=== PATIENT | female | born 1940 | race Caucasian/White ===

== ENCOUNTER → 2016-12-28 | Outpatient (CLI) | payer MEDICARE ==
--- NOTE | 2016-12-29 12:43 | MM ---
Reason for exam: screening (asymptomatic). Last mammogram was performed 1 year and 7 months ago. History: Patient is postmenopausal. Family history of premenopausal breast cancer in sister at age 45 and breast cancer in paternal aunt at age 70. Benign excisional biopsy of the right breast, 1989. Physical Findings: A clinical breast exam by your physician is recommended on an annual basis and results should be correlated with mammographic findings. MG 3D Screening Mammo W/Cad Bilateral CC and MLO view(s) were taken. Prior study comparison: May 22, 2015, bilateral MG 3d screening mammo w/cad. May 07, 2014, bilateral MG diagnostic mammo w CAD [facility]. May 04, 2013, [facility] DIGITAL RIGHT MAMMOGRAM w/CAD. There are scattered fibroglandular densities. No significant changes when compared with prior studies. ASSESSMENT: Negative, BI-RAD 1 RECOMMENDATION: Routine screening mammogram of both breasts in 1 year.
== END | disposition home or self-care (01) ==
LOC: RADMAMWWP 09:02
PROVIDERS: ATTEND Internal Medicine Geriatric Medicine
DX: Z12.31 Encounter for screening mammogram for malignant neoplasm of breast (principal)
CPT/HCPCS: 77063; G0202

== ENCOUNTER → 2017-06-07 | Outpatient (CLI) | payer MEDICARE ==
[2017-06-07 16:54] LABS: HCT 46.9 % (34.0-46.0); HGB 14.8 gm/dL (11.4-16.0); MCH 29.7 pg (25.0-35.0); MCHC 31.6 g/dL (31.0-37.0); MCV 93.8 fL (80.0-100.0); Mean Platelet Volume 8.1; Platelet Count 192 k/uL (150-450); WBC 5.7 k/uL (3.8-10.6)
[2017-06-07 17:01] LABS: Partial Thromboplastin Time 22.8 sec (22.0-30.0); Prothrombin Time 9.8 sec (9.0-12.0)
[2017-06-07 17:03] LABS: ALT 52 U/L (9-52); AST 29 U/L (14-36); Albumin 4.2 g/dL (3.5-5.0); Alkaline Phosphatase 90 U/L (38-126); Anion Gap 9 mmol/L; Blood Urea Nitrogen 17 mg/dL (7-17); Calcium 9.5 mg/dL (8.4-10.2); Carbon Dioxide 30 mmol/L (22-30); Chloride 104 mmol/L (98-107); Glucose 92 mg/dL (74-99); Potassium 4.1 mmol/L (3.5-5.1); Sodium 143 mmol/L (137-145); Total Bilirubin 0.7 mg/dL (0.2-1.3); Total Protein 6.7 g/dL (6.3-8.2)
[2017-06-07 17:05] LABS: Amorphous Sediment,Urine Rare /hpf; Appearance,Urine Cloudy (Clear); Bilirubin,Urine Negative (Negative); Blood,Urine Negative (Negative); Color,Urine Light Yellow; Glucose,Urine (UA) Negative (Negative); Ketones,Urine Negative (Negative); Leukocyte Esterase,Urine Trace (Negative); Mucus,Urine Rare /hpf; Nitrite,Urine Negative (Negative); PH, Urine 6.5 (5.0-8.0); Protein,Urine Negative (Negative); Specific Gravity,Urine 1.014 (1.001-1.035); Squamous Epithelial Cell,Urine <1 /hpf (0-4); Urobilinogen,Urine <2.0 mg/dL (<2.0); WBC,Urine 1 /hpf (0-5)
== END | disposition home or self-care (01) ==
LOC: LABWHC1 16:02
PROVIDERS: ATTEND Orthopaedic Surgery Adult Reconstructive Orthopaedic Surgery
DX: R79.1 Abnormal coagulation profile (principal); Z51.81 Encounter for therapeutic drug level monitoring
CPT/HCPCS: 36415; 80053; 81001; 85027; 85610; 85730

== ENCOUNTER → 2017-11-17 | Outpatient (CLI) | payer MEDICARE ==
--- NOTE | 2017-11-17 11:42 | US ---
EXAMINATION TYPE: US pelvic complete DATE OF EXAM: 11/17/2017 COMPARISON: NONE CLINICAL HISTORY: HEMATURIA R31.9. 1 episode of noticing blood on toilet paper a few days ago, no ble eding now, no microscopic hematuria today at office, no pain TECHNIQUE: TA. Transabdominal sonographic images of the pelvis were acquired. Date of LMP: 25+ years ago EXAM MEASUREMENTS: Uterus: 6.1 x 3.3 x 1.6 cm Endometrial Stripe: 0.2 cm Right Ovary: not seen Left Ovary: not seen 1. Uterus: Anteverted wnl 2. Endometrium: wnl 3. Right Ovary: not seen due to bowel gas and atrophy 4. Left Ovary: not seen due to bowel gas and atrophy 5. Bilateral Adnexa: peristalsing bowel, wnl 6. Posterior cul-de-sac: wnl IMPRESSION: 1. Unremarkable study.
== END | disposition home or self-care (01) ==
LOC: RADUSWWP 10:38
PROVIDERS: ATTEND Internal Medicine
DX: R31.9 Hematuria, unspecified (principal)
CPT/HCPCS: 76856

== ENCOUNTER → 2017-11-25 | Outpatient (CLI) | payer MEDICARE ==
--- NOTE | 2017-11-25 15:37 | US ---
EXAMINATION TYPE: US carotid duplex BILAT DATE OF EXAM: 11/25/2017 COMPARISON: US dated 03/10/2016 CLINICAL HISTORY: OCCLUSION STENOSIS I65.23. EXAM MEASUREMENTS: RIGHT: Peak Systolic Velocity (PSV) cm/sec ----- Right CCA: 95.6 ----- Right ICA: 89.2 ----- Right ECA: 64.7 ICA/CCA ratio: 0.9 RIGHT: End Diastole cm/sec ----- Right CCA: 19.3 ----- Right ICA: 27.0 ----- Right ECA: 0.0 LEFT: Peak Systolic Velocity (PSV) cm/sec ----- Left CCA: 73.5 ----- Left ICA: 86.7 ----- Left ECA: 75.7 ICA/CCA ratio: 1.2 LEFT: End Diastole cm/sec ----- Left CCA: 19.7 ----- Left ICA: 25.2 ----- Left ECA: 0.0 VERTEBRALS (direction of flow): Right Vertebral: Antegrade Left Vertebral: Antegrade Rhythm: Normal No significant stenosis seen, no elevated velocities, mild bilateral plaque noted. Grayscale, color Doppler, spectral Doppler the carotid arteries, waveform analysis shows no significa nt stenosis. IMPRESSION: No hemodynamic significant stenosis of the proximal internal carotid arteries bilaterall y by Doppler criteria, an indirect measurement of carotid stenosis
--- NOTE | 2017-11-26 15:05 | ECHOF ---
Referral Reason:OCCLUSION STENOSIS I65.23 MEASUREMENTS -------- HEIGHT: 160.0 cm WEIGHT: 70.3 kg BP: RVIDd: 3.0 cm (< 3.3) IVSd: 1.1 cm (0.6 - 1.1) LVIDd: 4.8 cm (3.9 - 5.3) LVPWd: 1.3 cm (0.6 - 1.1) IVSs: 1.5 cm LVIDs: 2.7 cm LVPWs: 1.7 cm LAESV Index (A-L): 78.24 ml/m Ao Diam: 3.1 cm (2.0 - 3.7) AV Cusp: 1.4 cm (1.5 - 2.6) LA Diam: 3.8 cm (2.7 - 3.8) EPSS: 0.3 cm MV E Reji: 1.83 m/s MV DecT: 301 ms MV A Reji: 1.37 m/s MV E/A Ratio: 1.34 RAP: 5.00 mmHg RVSP: 33.79 mmHg MV EF SLOPE: 31.67 mm/s (70 - 150) MV EXCURSION: 1.44 cm (> 18.000) FINDINGS -------- Sinus rhythm. This was a technically adequate study. The left ventricular size is normal. There is mild concentric left ventricular hypertrophy. Overa ll left ventricular systolic function is normal with, an EF between 55 - 60 %. The right ventricle is normal in size and function. LA is severely dilated >40 ml/m2 RA appears enlarged. Aortic valve is trileaflet and is mildly thickened. There is no evidence of aortic regurgitation. There is no evidence of aortic stenosis. The mitral valve leaflets are mildly thickened. Mild mitral annular calcification present. Modera te mitral regurgitation is present. Trace tricuspid regurgitation present. Right ventricular systolic pressure is normal at < 35 mmHg. There is no evidence of pulmonary hypertension. Trace/mild (physiologic) pulmonic regurgitation. The aortic root size is normal. Normal inferior vena cava with normal inspiratory collapse consistent with estimated right atrial pre ssure of 5 mmHg. There is no pericardial effusion. CONCLUSIONS -------- 1. Sinus rhythm. 2. This was a technically adequate study. 3. The left ventricular size is normal. 4. There is mild concentric left ventricular hypertrophy. 5. Overall left ventricular systolic function is normal with, an EF between 55 - 60 %. 6. LA is severely dilated >40 ml/m2 7. RA appears enlarged. 8. Aortic valve is trileaflet and is mildly thickened. 9. The mitral valve leaflets are mildly thickened. 10. Mild mitral annular calcification present. 11. Moderate mitral regurgitation is present. 12. Trace tricuspid regurgitation present. 13. Right ventricular systolic pressure is normal at < 35 mmHg. 14. There is no evidence of pulmonary hypertension. 15. Trace/mild (physiologic) pulmonic regurgitation. 16. The aortic root size is normal. 17. There is no pericardial effusion. PORT STEWARD: Eric Nielson RDCS
== END | disposition home or self-care (01) ==
LOC: RADUSMAIN 14:43
PROVIDERS: ATTEND Internal Medicine Geriatric Medicine
DX: I65.23 Occlusion and stenosis of bilateral carotid arteries (principal); I08.0 Rheumatic disorders of both mitral and aortic valves
CPT/HCPCS: 93306; 93880

== ENCOUNTER → 2018-01-26 | Outpatient (CLI) | payer MEDICARE ==
--- NOTE | 2018-01-26 16:25 | BD ---
EXAMINATION TYPE: Axial Bone Density DATE OF EXAM: 01/26/2018 CLINICAL HISTORY: Height: 63 inches Weight: 158 FRAX RISK QUESTIONS: Alcohol (3 or more units per day): no Family History (Parent hip fracture): no Glucocorticoids (More than 3mos): no (Ex: prednisone, prednisolone, methylprednisolone, dexamethasone, and hydrocortisone). History of Fracture in Adulthood: yes Secondary Osteoporosis: 1. Type 1 Diabetes: no 2. Hyperthyroidism: no 3. Menopause before 45: no 4. Malnutrition: no 5. Chronic liver disease: no Rheumatoid Arthritis: patient states her physician states that she has this Current Tobacco Use: no RISK FACTORS HISTORY OF: History of Wrist Fracture: yes, twice When: last fx was 2 years ago Family History of Osteoporosis: yes Active: yes Diet low in dairy products/other sources of calcium: no Postmenopausal woman: yes Take estrogen and/or progesterone medications: no Lost more than 2 inches in height since high school: states height at one time was about 65 inches Frequent falls: no Poor Health: no Hyperparathyroidism: no Adrenal Insufficiency: no MEDICATIONS: Prednisone or other steroids: no Thyroid Medications: no Osteoporosis Medications: Which medication: Fosamax Also injection..but none now How Lon year on Fosamax Additional Medications: started blood pressure meds, Cholesterol meds, calcium Additional History: knee replacement EXAM MEASUREMENTS: Bone mineral densitometry was performed using the THYME System. Bone mineral density as measured about the Lumbar spine is: ----- L1-L4(G/cm2): 0.947 T Score Values are as follows: ----- L2: -3.4 ----- L3: -1.5 ----- L4: -1.2 ----- L1-L4: -1.9 Bone mineral density has: Decreased -6.7% since study of: 05/07/2014 Bone mineral density about the R hip (g/cm2): 0.842 Bone mineral density about the L hip (g/cm2): 0.783 T Score values are as follows: -----R Neck: -1.4 -----L Neck: -1.8 -----R Total: -0.5 -----L Total: -1.1 Bone mineral density has: Decreased -4.0% since study of: 05/07/2014 IMPRESSION: Osteoporosis (T Score less than -2.5). There is increased fracture risk and therapy is usually indicated based on age. Re-Screen 1-2 years. NOTE: T-SCORE=SD OF THE YOUNG ADULT MEAN.
--- NOTE | 2018-01-27 14:16 | MM ---
Reason for exam: screening (asymptomatic). Last mammogram was performed 1 year and 1 month ago. History: Patient is postmenopausal. Family history of premenopausal breast cancer in sister at age 45 and breast cancer in paternal aunt at age 70. Benign excisional biopsy of the right breast, 1989. Physical Findings: A clinical breast exam by your physician is recommended on an annual basis and results should be correlated with mammographic findings. MG 3D Screening Mammo W/Cad Bilateral CC and MLO view(s) were taken. Prior study comparison: December 28, 2016, bilateral MG 3d screening mammo w/cad. May 22, 2015, bilateral MG 3d screening mammo w/cad. The breast tissue is heterogeneously dense. This may lower the sensitivity of mammography. Finding: There are typically benign round, grouped/clustered calcifications in the posterior middle position of the right breast. There is no discrete abnormality. ASSESSMENT: Benign, BI-RAD 2 RECOMMENDATION: Routine screening mammogram of both breasts in 1 year.
== END | disposition home or self-care (01) ==
LOC: RADMAMWWP 08:26
PROVIDERS: ATTEND Internal Medicine Geriatric Medicine
DX: Z12.31 Encounter for screening mammogram for malignant neoplasm of breast (principal); M81.0 Age-related osteoporosis without current pathological fracture
CPT/HCPCS: 77063; 77067; 77080

== ENCOUNTER → 2018-03-13 | Outpatient (CLI) | payer MEDICARE ==
--- NOTE | 2018-03-13 12:44 | US ---
EXAMINATION TYPE: US abdomen complete DATE OF EXAM: 03/13/2018 COMPARISON: NONE CLINICAL HISTORY: R31.9 Hematuria, unspecified. Pt states gross hematuria EXAM MEASUREMENTS: Liver Length: 14.0 cm Gallbladder Wall: 0.2 cm CBD: 0.3 cm Spleen: 8.9 cm Right Kidney: 11.0 x 4.5 x 4.8 cm Left Kidney: 10.9 x 5.5 x 5.3 cm Pancreas: wnl, tail obscured by overlying bowel gas Liver: Probable cyst midline liver near IVC= 1.9 x 1.4 x 2.1 cm Gallbladder: wnl Evidence for sonographic Wang's sign: No CBD: wnl Spleen: wnl Right Kidney: wnl Left Kidney: Possible vague hypoechoic lesion vs. column of Travis at mid= 2.5 x 2.3 x 2.6 cm Upper IVC: wnl Abd Aorta: wnl The liver is homogenous. The intrahepatic portion of the IVC and proximal abdominal aorta are within normal limits. There is no evidence of cholelithiasis. Common bile duct is unremarkable. The visu alized portions of the pancreas are homogenous. The spleen is unremarkable. Kidneys are symmetric a nd free of hydronephrosis. IMPRESSION: 1. Renal lesion is difficult to exclude. CT is recommended for further evaluation. 2. Hepatic cyst.
== END | disposition home or self-care (01) ==
LOC: RADUSWWP 12:03
PROVIDERS: ATTEND Internal Medicine Geriatric Medicine
DX: N28.89 Other specified disorders of kidney and ureter (principal); K76.89 Other specified diseases of liver
CPT/HCPCS: 76700

== ENCOUNTER → 2018-03-14 | Outpatient (CLI) | payer MEDICARE ==
[~2018-03-14] MED LIST: SODIUM CHLORIDE 0.9% 500 ML 500 ML in EMPTY BAG 1 BAG IV PRN; ZOLEDRONIC ACID 5 MG in SODIUM CHLORIDE 0.9% 100 ML IV NR
[2018-03-14 13:12] VITALS: BP 193/96; PULSE 51; RESP 16; TEMP 97.9
== END | disposition home or self-care (01) ==
LOC: PROCWHC3 12:41
PROVIDERS: ATTEND Internal Medicine Geriatric Medicine
DX: M81.0 Age-related osteoporosis without current pathological fracture (principal)
CPT/HCPCS: 96365; J3489

== ENCOUNTER → 2018-03-24 | Outpatient (CLI) | payer MEDICARE ==
[2018-03-24 13:03] LABS: Blood Urea Nitrogen 15 mg/dL (7-17)
--- NOTE | 2018-03-24 14:56 | CT ---
EXAMINATION TYPE: CT abdomen w con DATE OF EXAM: 03/24/2018 HISTORY: Neoplasm of Left kidney. Abnormal ultrasound. CT DLP: 605.30mGycm Automated Exposure Control for Dose Reduction was Utilized. CONTRAST: CT scan of the abdomen is performed without and with IV Contrast, patient injected with 100 ml mL of Isovue 300. COMPARISON: Abdominal ultrasound dated 03/13/2018. FINDINGS: LUNG BASES: Benign calcified granulomas are seen in the left infrahilar region and left lung base. Bi basilar subsegmental atelectasis is noted. Few coronary artery calcifications are seen in addition to mild cardiomegaly. There is slight right hemidiaphragm elevation. LIVER/GB: There is a 1.3 cm hepatic cyst in segment 8. Smaller hypoattenuated hepatic lesion on image 33 is too small to accurately characterize. No intrahepatic biliary ductal dilatation. No cholelithi asis. PANCREAS: No significant abnormality is seen. SPLEEN: No significant abnormality is seen. ADRENALS: No significant abnormality is seen. KIDNEYS: The previously questioned ill-defined renal mass versus column of Travis seen on the prior a bdominal ultrasound represents a prominent, Travis on axial image 35 and sagittal image 80 as well as coronal image 61. A cortically based 4 mm probable cyst is exophytic from the left kidney. Cortical defect within the right kidney is indicative of prior trauma and represents scarring. BOWEL: No dilated large or small bowel. LYMPH NODES: No greater than 1cm abdominal or pelvic lymph nodes are appreciated. OSSEOUS STRUCTURES: Multilevel degenerative changes are most pronounced of the thoracic spine with nu merous Schmorl's nodes and broad-based disc bulges. OTHER: There is a small hiatal hernia. Moderate atherosclerosis is seen of the abdominal aorta and it s branches. IMPRESSION: 1. The previously questioned left renal mass on the prior abdominal ultrasound represents a prominent , Travis. Probable 4 mm benign exophytic left cortical renal cyst is noted. 2. Solitary hepatic cyst and smaller subcentimeter lesion that is too small to accurately characteriz e.
== END | disposition home or self-care (01) ==
LOC: RADCTMAIN 12:15
PROVIDERS: ATTEND Internal Medicine Geriatric Medicine
DX: D49.512 Neoplasm of unspecified behavior of left kidney (principal)
CPT/HCPCS: 82565; 84520; 74160; 36415; Q9967

== ENCOUNTER → 2019-01-29 | Outpatient (CLI) | payer MEDICARE ==
--- NOTE | 2019-01-30 08:23 | MM ---
Reason for exam: screening (asymptomatic). Last mammogram was performed 1 year ago. History: Patient is postmenopausal. Family history of premenopausal breast cancer in sister at age 45 and breast cancer in paternal aunt at age 70. Benign excisional biopsy of the right breast, 1989. Physical Findings: A clinical breast exam by your physician is recommended on an annual basis and results should be correlated with mammographic findings. MG 3D Screening Mammo W/Cad Bilateral CC and MLO view(s) were taken. Prior study comparison: January 26, 2018, bilateral MG 3d screening mammo w/cad. December 28, 2016, bilateral MG 3d screening mammo w/cad. The breast tissue is heterogeneously dense. This may lower the sensitivity of mammography. There are benign appearing grouped round calcifications bilaterally. There is no discrete abnormality. ASSESSMENT: Benign, BI-RAD 2 RECOMMENDATION: Routine screening mammogram of both breasts in 1 year.
== END | disposition home or self-care (01) ==
LOC: RADMAMWWP 08:45
PROVIDERS: ATTEND Internal Medicine Geriatric Medicine
DX: Z12.31 Encounter for screening mammogram for malignant neoplasm of breast (principal)
CPT/HCPCS: 77063; 77067

== ENCOUNTER → 2019-08-02 | Outpatient (CLI) | payer MEDICARE | END | disposition home or self-care (01) | DX: R31.9 Hematuria, unspecified (principal) | CPT/HCPCS: 76770 ==

== ENCOUNTER 2019-08-27 01:55 | Inpatient (IN) | payer MEDICARE ==
[2019-08-27] MEDS ORDERED: DILTIAZEM DRIP BOLUS FROM BAG 1 MG SOLN IV ONE ×2 (02:24→03:01)
[2019-08-27] MEDS: DILTIAZEM 125 MG in SODIUM CHLORIDE 0.9% 100 ML IV SCH (02:32)
--- NOTE | 2019-08-27 02:41 | ED ---
Dizziness HPI - General Chief Complaint: Dizziness Stated Complaint: SOB, Dizziness Time Seen by Provider: 08/27/19 02:18 Source: patient Mode of arrival: ambulatory Limitations: no limitations - History of Present Illness Initial Comments: This patient is a 78-year-old woman who presents to be evaluated for constellation of symptoms that are been going on intermittently for about 3 days now. She states that she was feeling somewhat lightheaded and dizzy. She states that this would come on intermittently over the past approximately 3 days. Tonight she also was having some chest pains in the substernal area radiating to her back that she described as pressure or aching. I was moderate intensity. She felt nauseated tonight as well and this made her decide she should be seen here. Patient denies diaphoresis, dyspnea. MD Complaint: dizziness Onset/Timin -: days(s) Timing: gradual onset, intermittent Description: lightheadedness, off-balance History of Same: No History of Trauma: No Severity: severe Improves With: nothing Worsens With: nothing Associated Symptoms: chest pain - Related Data Home Medications Medication Instructions Recorded Confirmed Ascorbic Acid [Vitamin C] 500 mg PO DAILY 03/14/18 03/14/18 Atorvastatin Calcium [Lipitor] 10 mg PO HS 03/14/18 03/14/18 Cholecalciferol [Vitamin D3] 1,000 unit PO DAILY 03/14/18 03/14/18 Losartan [Cozaar] 50 mg PO BID 03/14/18 03/14/18 Magnesium 200 mg PO DAILY 03/14/18 03/14/18 Multivitamins, Thera [Multivitamin 1 tab PO DAILY 03/14/18 03/14/18 (formulary)] Naproxen Sodium [Aleve] 220 mg PO DAILY PRN 03/14/18 03/14/18 Allergies Allergy/AdvReac Type Severity Reaction Status Date / Time contact metal agent Allergy Unknown Unknown Verified 08/27/19 02:09 Review of Systems ROS Statement: Those systems with pertinent positive or pertinent negative responses have been documented in the HPI. ROS Other: All systems not noted in ROS Statement are negative. Constitutional: Reports: weakness (Generalized). Denies: fever, chills Eyes: Denies: vision change Respiratory: Denies: cough, dyspnea Cardiovascular: Reports: as per HPI, chest pain. Denies: palpitations, edema, syncope Endocrine: Reports: fatigue Gastrointestinal: Reports: nausea. Denies: abdominal pain, vomiting, diarrhea Genitourinary: Denies: dysuria Musculoskeletal: Denies: back pain Skin: Denies: rash Neurological: Denies: headache, weakness, numbness Past Medical History Past Medical History: Hyperlipidemia, Hypertension, Osteoarthritis (OA) Additional Past Medical History / Comment(s): OSTEOPOROSIS. History of Any Multi-Drug Resistant Organisms: None Reported Past Surgical History: Orthopedic Surgery, Tonsillectomy, Tubal Ligation Additional Past Surgical History / Comment(s): BILATERAL KNEES. Past Anesthesia/Blood Transfusion Reactions: No Reported Reaction Past Psychological History: No Psychological Hx Reported Smoking Status: Never smoker Past Alcohol Use History: None Reported Past Drug Use History: None Reported General Exam Limitations: no limitations General appearance: alert, in no apparent distress Head exam: Present: atraumatic, normocephalic Eye exam: Present: normal appearance. Absent: scleral icterus, conjunctival i njection ENT exam: Present: normal oropharynx Neck exam: Present: normal inspection, full ROM Respiratory exam: Present: normal lung sounds bilaterally. Absent: respiratory distress, wheezes, rales, rhonchi, stridor Cardiovascular Exam: Present: tachycardia, irregular rhythm, normal heart sounds. Absent: systolic murmur, diastolic murmur, rubs, gallop GI/Abdominal exam: Present: soft. Absent: distended, tenderness, guarding, rebound, rigid, mass Extremities exam: Present: normal inspection, normal capillary refill. Absent: pedal edema, calf tenderness Back exam: Present: normal inspection. Absent: CVA tenderness (R), CVA tenderness (L) Neurological exam: Present: alert Skin exam: Present: warm, dry, intact, normal color. Absent: rash Course Vital Signs 08/27/19 08/27/19 08/27/19 02:03 02:45 03:17 Temperature 98.4 F Pulse Rate 98 180 H 168 H Respiratory 16 18 18 Rate Blood Pressure 171/129 146/82 138/94 O2 Sat by Pulse 94 L 96 96 Oximetry 08/27/19 08/27/19 03:49 04:30 Temperature 97.8 F Pulse Rate 168 H 140 H Respiratory 18 18 Rate Blood Pressure 108/91 105/75 O2 Sat by Pulse 93 L 94 L Oximetry EKG Findings - EKG Results: EKG: interpreted by ERMD, normal axis, normal QRS EKG shows: tachycardia (Rate approximate 179 bpm), atrial fibrillation - Blocks, [place], Hypertrophy, ST Abn: Repolarization changes or abnormalities: nonspecific abnormality, ST segment, and/or T wave Medical Decision Making - Medical Decision Making This patient is 78-year-old woman presenting for dizziness/lightheadedness and also chest pain. She is found to have new onset atrial fibrillation. Patient is started on Cardizem which did bring the rate down a bit though still remaining tachycardic. She states that the chest pain had resolved. Her case is discussed with Dr. Yeh, from cardiology, as well as Dr. Sotelo who will be admitting. There treatment recommendations are incorporated. - Lab Data Result diagrams: 08/27/19 03:12 08/27/19 03:12 Lab Results 08/27/19 08/27/19 08/27/19 Range/Units 03:12 03:12 03:12 WBC 13.1 H (3.8-10.6) k/uL RBC 4.73 (3.80-5.40) m/uL Hgb 14.6 (11.4-16.0) gm/dL Hct 43.5 (34.0-46.0) % MCV 92.1 (80.0-100.0) fL MCH 30.9 (25.0-35.0) pg MCHC 33.6 (31.0-37.0) g/dL RDW 13.4 (11.5-15.5) % Plt Count 208 (150-450) k/uL Neutrophils % 90 % Lymphocytes % 6 % Monocytes % 2 % Eosinophils % 1 % Basophils % 0 % Neutrophils # 11.8 H (1.3-7.7) k/uL Lymphocytes # 0.8 L (1.0-4.8) k/uL Monocytes # 0.3 (0-1.0) k/uL Eosinophils # 0.2 (0-0.7) k/uL Basophils # 0.0 (0-0.2) k/uL Sodium 136 L (137-145) mmol/L Potassium 4.4 (3.5-5.1) mmol/L Chloride 105 (98-107) mmol/L Carbon Dioxide 24 (22-30) mmol/L Anion Gap 7 mmol/L BUN 17 (7-17) mg/dL Creatinine 0.62 (0.52-1.04) mg/dL Est GFR (CKD-EPI)AfAm >90 (>60 ml/min/1.73 sqM) Est GFR (CKD-EPI)NonAf 87 (>60 ml/min/1.73 sqM) Glucose 158 H (74-99) mg/dL Plasma Lactic Acid Devyn 1.6 (0.7-2.0) mmol/L Calcium 9.2 (8.4-10.2) mg/dL Magnesium 2.1 (1.6-2.3) mg/dL Total Bilirubin 1.6 H (0.2-1.3) mg/dL AST 31 (14-36) U/L ALT 34 (4-34) U/L Alkaline Phosphatase 75 (38-126) U/L Troponin I (0.000-0.034) ng/mL Total Protein 6.3 (6.3-8.2) g/dL Albumin 3.8 (3.5-5.0) g/dL 08/27/19 Range/Units 03:12 WBC (3.8-10.6) k/uL RBC (3.80-5.40) m/uL Hgb (11.4-16.0) gm/dL Hct (34.0-46.0) % MCV (80.0-100.0) fL MCH (25.0-35.0) pg MCHC (31.0-37.0) g/dL RDW (11.5-15.5) % Plt Count (150-450) k/uL Neutrophils % % Lymphocytes % % Monocytes % % Eosinophils % % Basophils % % Neutrophils # (1.3-7.7) k/uL Lymphocytes # (1.0-4.8) k/uL Monocytes # (0-1.0) k/uL Eosinophils # (0-0.7) k/uL Basophils # (0-0.2) k/uL Sodium (137-145) mmol/L Potassium (3.5-5.1) mmol/L Chloride (98-107) mmol/L Carbon Dioxide (22-30) mmol/L Anion Gap mmol/L BUN (7-17) mg/dL Creatinine (0.52-1.04) mg/dL Est GFR (CKD-EPI)AfAm (>60 ml/min/1.73 sqM) Est GFR (CKD-EPI)NonAf (>60 ml/min/1.73 sqM) Glucose (74-99) mg/dL Plasma Lactic Acid Devyn (0.7-2.0) mmol/L Calcium (8.4-10.2) mg/dL Magnesium (1.6-2.3) mg/dL Total Bilirubin (0.2-1.3) mg/dL AST (14-36) U/L ALT (4-34) U/L Alkaline Phosphatase (38-126) U/L Troponin I 0.021 (0.000-0.034) ng/mL Total Protein (6.3-8.2) g/dL Albumin (3.5-5.0) g/dL Critical Care Time Critical Care Time: Yes (35 minutes) Disposition Clinical Impression: Atrial fibrillation Disposition: ADMITTED IP TO THIS [facility] Condition: Fair
[2019-08-27] MEDS ORDERED: SODIUM CHLORIDE 0.9% 500 ML 500 ML IV STA (03:00)
[2019-08-27] MEDS ORDERED: ENOXAPARIN 80 MG/0.8 ML SYRINGE SQ ONE (03:15)
[2019-08-27 03:24] LABS: Basophils % (A) 0 %; Eosinophils # (A) 0.2 k/uL (0-0.7); Eosinophils % (A) 1 %; HCT 43.5 % (34.0-46.0); HGB 14.6 gm/dL (11.4-16.0); Lymphocytes # (A) 0.8 k/uL (1.0-4.8); Lymphocytes % (A) 6 %; MCH 30.9 pg (25.0-35.0); MCHC 33.6 g/dL (31.0-37.0); MCV 92.1 fL (80.0-100.0); Mean Platelet Volume 7.9; Monocytes # (A) 0.3 k/uL (0-1.0); Monocytes % (A) 2 %; Neutrophils # (A) 11.8 k/uL (1.3-7.7); Neutrophils % (A) 90 %; Platelet Count 208 k/uL (150-450); RBC 4.73 m/uL (3.80-5.40); RDW 13.4 % (11.5-15.5); WBC 13.1 k/uL (3.8-10.6)
[2019-08-27 03:44] LABS: ALT 34 U/L (4-34); AST 31 U/L (14-36); African American GFR (CKD) >90 (>60 ml/min/1.73 sqM); Albumin 3.8 g/dL (3.5-5.0); Alkaline Phosphatase 75 U/L (38-126); Anion Gap 7 mmol/L; Blood Urea Nitrogen 17 mg/dL (7-17); Calcium 9.2 mg/dL (8.4-10.2); Carbon Dioxide 24 mmol/L (22-30); Chloride 105 mmol/L (98-107); Glucose 158 mg/dL (74-99); Magnesium 2.1 mg/dL (1.6-2.3); Non-African American GFR(CKD) 87 (>60 ml/min/1.73 sqM); Potassium 4.4 mmol/L (3.5-5.1); Sodium 136 mmol/L (137-145); Total Bilirubin 1.6 mg/dL (0.2-1.3); Total Protein 6.3 g/dL (6.3-8.2)
--- NOTE | 2019-08-27 03:57 | XR ---
EXAMINATION TYPE: XR chest 1V portable DATE OF EXAM: 08/27/2019 COMPARISON: 12/19/2011 HISTORY: Chest pain TECHNIQUE: Single view FINDINGS: There is some pulmonary interstitial edema. Heart appears slightly enlarged. There is proba jojo a small right pleural effusion. There are chest leads. IMPRESSION: There is evidence of congestive heart failure that is new compared to last exam.
[2019-08-27] MEDS ORDERED: NITROGLYCERIN SL TABS 0.4 MG TAB SUBLINGUAL PRN (04:04)
[2019-08-27 04:13] LABS: Appearance,Urine Clear (Clear); Bilirubin,Urine Negative (Negative); Blood,Urine Negative (Negative); Color,Urine Yellow; Glucose,Urine (UA) Negative (Negative); Ketones,Urine 1+ (Negative); Leukocyte Esterase,Urine Small (Negative); Mucus,Urine Rare /hpf; Nitrite,Urine Negative (Negative); Protein,Urine Negative (Negative); RBC,Urine 1 /hpf (0-5); Specific Gravity,Urine 1.007 (1.001-1.035); Urobilinogen,Urine <2.0 mg/dL (<2.0); WBC,Urine 2 /hpf (0-5)
[2019-08-27] MEDS ORDERED: SODIUM CHLORIDE 0.9% 1,000 ML IV SCH (04:15)
[2019-08-27] MEDS: CHOLECALCIFEROL 1,000 UNIT TAB PO SCH (08:15)
[2019-08-27] MEDS: MAGNESIUM OXIDE 400 MG TAB PO SCH (08:15)
[2019-08-27] MEDS: MULTIVITAMINS, THERA 1 EACH TAB PO SCH (08:16)
--- NOTE | 2019-08-27 08:54 | P.CRDCN ---
History of Present Illness Consult date: 08/27/19 Consult reason: atrial fibrillation Chief complaint: dizziness History of present illness: Is is a pleasant 78-year-old female with known history of hypertension, hyperlipidemia, she is a nondiabetic, nonsmoker, no EtOH, drinks one cup of coffee per day. Recently he was on vacation in [place], she went to [place] on August 09 and return back on the . Since then the patient states that she's been in full isolation at home. She presents to the hospital with symptoms of dizziness and lightheadedness. Patient also states that she had an episode of nausea with mild vomiting. Patient states that she became short of breath, and felt at times like she may pass out. On presentation to the emergency room her EKG showed atrial fibrillation with a rapid ventricular response. According to the patient, she denies any prior history of atrial fibrillation. Blood pressure on arrival here 170/120 with a heart rate of 130s to 140s. She is afebrile. 94% on room air on arrival. This mornings heart rate continues to be in the 1:30 to 140 range. She is currently on Cardizem at 5 mg per hour. Laboratory data was reviewed, white blood cell count 13.1, hemoglobin 14.6, platelet count 208. Sodium 136, potassium 4.4, BUN 17, creatinine 0.6, CO2 24 with a chloride of 105. Magnesium 2.1, total bilirubin 1.6. TSH level is normal, troponin 0.021. At the time of my examination this morning, patient feels tired, otherwise no overt complaints. She states that the day prior to coming to the hospital, she slept for 18 hours straight. Past Medical History Past Medical History: Hyperlipidemia, Hypertension, Osteoarthritis (OA) Additional Past Medical History / Comment(s): OSTEOPOROSIS. History of Any Multi-Drug Resistant Organisms: None Reported Past Surgical History: Orthopedic Surgery, Tonsillectomy, Tubal Ligation Additional Past Surgical History / Comment(s): BILATERAL KNEES. Past Anesthesia/Blood Transfusion Reactions: No Reported Reaction Past Psychological History: No Psychological Hx Reported Smoking Status: Never smoker Past Alcohol Use History: None Reported Past Drug Use History: None Reported - Past Family History Father Family Medical History: No Reported History Mother Family Medical History: No Reported History Medications and Allergies Home Medications Medication Instructions Recorded Confirmed Type Ascorbic Acid [Vitamin C] 500 mg PO DAILY 03/14/18 08/27/19 History Atorvastatin Calcium [Lipitor] 10 mg PO DAILY 03/14/18 08/27/19 History Cholecalciferol [Vitamin D3] 5,000 unit PO DAILY 03/14/18 08/27/19 History Magnesium 200 mg PO DAILY 03/14/18 08/27/19 History Multivitamins, Thera [Multivitamin 1 tab PO DAILY 03/14/18 08/27/19 History (formulary)] Aspirin EC [Ecotrin Low Dose] 81 mg PO DAILY 08/27/19 08/27/19 History Calcium Carb/Vitamin D3/Vit K1 1 tab PO DAILY 08/27/19 08/27/19 History [Citracal Soft Chew] Olmesartan Medoxomil 20 mg PO DAILY@1900 08/27/19 08/27/19 History Allergies Allergy/AdvReac Type Severity Reaction Status Date / Time contact metal agent Allergy Unknown Unknown Verified 08/27/19 09:28 Physical Exam Vitals: Vital Signs Temp Pulse Pulse Resp BP BP Pulse Ox 08/27/19 04:30 97.8 F 140 H 18 105/75 94 L 08/27/19 04:18 98.9 F 90 18 120/90 94 L 08/27/19 03:49 168 H 18 108/91 93 L 08/27/19 03:17 168 H 18 138/94 96 08/27/19 02:45 180 H 18 146/82 96 08/27/19 02:03 98.4 F 98 16 171/129 94 L Intake and Output 08/26/19 08/27/19 08/27/19 22:59 06:59 14:59 Intake Total 100 Balance 100 Intake: Oral 100 Other: Weight 73 kg PHYSICAL EXAMINATION: GENERAL: 78-year-old female in no acute distress at the time of my examination HEENT: Head is atraumatic, normocephalic. Pupils equal, round. Sclera anicteric. Conjunctiva are clear. Mucous membranes of the mouth are moist. Neck is supple. There is elevated jugular venous pressure. No carotid bruit is heard. HEART EXAMINATION: Heart S1 and S2 irregularly irregular CHEST EXAMINATION: And circumflex clear with mild diminished air entry to the bases bilaterally ABDOMEN: Soft, nontender. Bowel sounds are heard. No organomegaly noted. EXTREMITIES: 2+ peripheral pulses with no evidence of peripheral edema and no calf tenderness noted. NEUROLOGIC patient is awake, alert and oriented 3 . Results 08/27/19 03:12 08/27/19 03:12 Cardiac Enzymes 08/27/19 08/27/19 Range/Units 03:12 03:12 AST 31 (14-36) U/L Troponin I 0.021 (0.000-0.034) ng/mL CBC 08/27/19 Range/Units 03:12 WBC 13.1 H (3.8-10.6) k/uL RBC 4.73 (3.80-5.40) m/uL Hgb 14.6 (11.4-16.0) gm/dL Hct 43.5 (34.0-46.0) % Plt Count 208 (150-450) k/uL Comprehensive Metabolic Panel 08/27/19 Range/Units 03:12 Sodium 136 L (137-145) mmol/L Potassium 4.4 (3.5-5.1) mmol/L Chloride 105 (98-107) mmol/L Carbon Dioxide 24 (22-30) mmol/L BUN 17 (7-17) mg/dL Creatinine 0.62 (0.52-1.04) mg/dL Glucose 158 H (74-99) mg/dL Calcium 9.2 (8.4-10.2) mg/dL AST 31 (14-36) U/L ALT 34 (4-34) U/L Alkaline Phosphatase 75 (38-126) U/L Total Protein 6.3 (6.3-8.2) g/dL Albumin 3.8 (3.5-5.0) g/dL Current Medications Generic Name Dose Route Start Last Admin Trade Name Freq PRN Reason Stop Dose Admin Aspirin 325 mg 08/28/19 09:00 Aspirin PO DAILY [facility] Atorvastatin Calcium 10 mg 08/27/19 21:00 Lipitor PO HS [facility] Cholecalciferol 1,000 unit 08/27/19 09:00 08/27/19 08:15 Vitamin D3 (25 Mcg = 1000 Iu) PO 1,000 unit DAILY [facility] Administration Enoxaparin Sodium 80 mg 08/27/19 11:00 Lovenox SQ BID@1100,2300 [facility] Diltiazem HCl 125 mg/ Sodium 125 mls @ 5 mls/hr 08/27/19 02:30 08/27/19 02:32 Chloride IV 5 mg/hr .Q24H [facility] 5 mls/hr Administration 5 MG/HR Sodium Chloride 1,000 mls @ 20 mls/hr 08/27/19 04:15 08/27/19 04:44 Saline 0.9% IV Not Given .Q24H [facility] Losartan Potassium 50 mg 08/27/19 09:00 08/27/19 08:15 Cozaar PO 50 mg BID [facility] Administration Magnesium Oxide 200 mg 08/27/19 09:00 08/27/19 08:15 Mag-Ox PO 200 mg DAILY [facility] Administration Multivitamins 1 each 08/27/19 09:00 08/27/19 08:16 Theragran PO 1 each DAILY [facility] Administration Nitroglycerin 0.4 mg 08/27/19 04:04 Nitrostat SUBLINGUAL Q5M PRN Chest Pain Intake and Output 08/26/19 08/27/19 08/27/19 22:59 06:59 14:59 Intake Total 100 Balance 100 Intake: Oral 100 Other: Weight 73 kg 08/27/19 03:12 08/27/19 03:12 EKG Interpretations (text) EKG shows atrial fibrillation with rapid ventricular response Assessment and Plan Plan: Assessment and plan #1 atrial fibrillation with rapid ventricular response, appears to be of new onset for the patient #2 hypertension #3 hyperlipidemia #4 Chf, likely secondary to Plan We will obtain an echocardiogram with Doppler study, start the patient on a beta terry, give a 10 mg bolus of IV Cardizem and increase the drip to 10 mg. We will also discontinue the Lovenox and start the patient on Eliquis 5 mg one tablet by mouth twice a day. We will also give the patient one time dose of IV Lasix, start the patient on a twice a day dose of Lasix for today and check a BNP level. The patient has been educated regarding the importance of antico agulation for stroke prevention. TSH level was normal. Further recommendations to follow. DNP note has been reviewed, I agree with a documented findings and plan of care. Patient was seen and examined.
[2019-08-27] MEDS ORDERED: FUROSEMIDE 10 MG/ML 2 ML VIAL IV ONE (08:55)
[2019-08-27] MEDS ORDERED: LOSARTAN 50 MG TAB PO SCH (09:00)
[2019-08-27] MEDS: METOPROLOL TARTRATE 25 MG TAB PO SCH ×2 (10:04→19:37)
--- NOTE | 2019-08-27 10:37 | ECHOF ---
Referral Reason:atrial fibrillation MEASUREMENTS -------- HEIGHT: 162.6 cm WEIGHT: 74.4 kg BP: 120/90 RVIDd: 3.0 cm (< 3.3) IVSd: 1.2 cm (0.6 - 1.1) LVIDd: 3.9 cm (3.9 - 5.3) LVPWd: 1.4 cm (0.6 - 1.1) IVSs: 1.7 cm LVIDs: 2.6 cm LVPWs: 1.4 cm LAESV Index (A-L): 54.76 ml/m Ao Diam: 3.2 cm (2.0 - 3.7) AV Cusp: 1.9 cm (1.5 - 2.6) LA Diam: 4.4 cm (2.7 - 3.8) RAP: 5.00 mmHg RVSP: 38.33 mmHg FINDINGS -------- Atrial fibrillation. This was a technically adequate study. The left ventricular size is normal. There is mild concentric left ventricular hypertrophy. Overa ll left ventricular systolic function is normal with, an EF between 55 - 60 %. Left ventricular jose limg pressure cannot be estimated due to Atrial fibrillation. The right ventricle is normal in size. LA is severely dilated >40 ml/m2 The right atrial size is normal. The aortic valve is trileaflet, and appears structurally normal. No aortic stenosis or regurgitation. Mild mitral annular calcification present. Mild mitral regurgitation is present. The tricuspid valve appears structurally normal. Mild tricuspid regurgitation present. There is m ild pulmonary hypertension. The right ventricular systolic pressure, as measured by Doppler, is 38. 33mmHg. The pulmonic valve was not well visualized. There is no pulmonic regurgitation present. The aortic root size is normal. Normal inferior vena cava with normal inspiratory collapse consistent with estimated right atrial pre ssure of 5 mmHg. There is no pericardial effusion. CONCLUSIONS -------- 1. Atrial fibrillation. 2. There is mild concentric left ventricular hypertrophy. 3. Overall left ventricular systolic function is normal with, an EF between 55 - 60 %. 4. Left ventricular fillimg pressure cannot be estimated due to Atrial fibrillation. 5. LA is severely dilated >40 ml/m2 6. The aortic valve is trileaflet, and appears structurally normal. No aortic stenosis or regurgitati on. 7. Mild mitral annular calcification present. 8. Mild mitral regurgitation is present. 9. Mild tricuspid regurgitation present. 10. There is mild pulmonary hypertension. 11. Normal inferior vena cava with normal inspiratory collapse consistent with estimated right atrial pressure of 5 mmHg. LO[employer]MP OPERATOR: Farheen Dasilva RDCS
[2019-08-27] MEDS ORDERED: ENOXAPARIN 80 MG/0.8 ML SYRINGE SQ SCH (11:00)
[2019-08-27] MEDS: APIXABAN 5 MG TAB PO SCH ×2 (11:59→19:37)
[2019-08-27] MEDS ORDERED: ONDANSETRON 4 MG/2 ML VIAL IVP PRN (12:00)
--- NOTE | 2019-08-27 13:38 | P.HPIM ---
History of Present Illness H&P Date: 08/27/19 Chief Complaint: Lightheaded, chest pain This is a 78-year-old female patient of Dr. Stuart with past medical history of hypertension, hyperlipidemia, generalized osteoarthritis, osteoporosis. Patient states that she had onset of dizziness when she was walking up the stairs. She states she also had chest pain at that time. Patient also had nausea with episode of vomiting, shortness of breath. She felt like she was going to pass out. This is a first episode like this. Patient is seen today on the cardiac stepdown unit is ambulating in her room and denies any lightheadedness or dizziness. She still has some nausea. Patient last saw Dr. Navarrete one month ago. She states she's also had some episodes of bleeding but to be vaginal or urinary bladder bleeding. She denies having any bleeding at this time. Dr. Stuart was aware of this at her last appointment 1 month ago but it was decided that this would be worked up after she returns from [place]. Patient denies having any history of strokes, DVTs, or ulcers. Patient came into [facility] emergency center for evaluation. Initial blood pressure was 171/129, afebrile, heart rate 98, pulse ox 94% on room air. Subsequently, patient had heart rate of 130-180s and EKG was atrial fibrillation. Patient was started on Cardizem. WBC 13.1, hemoglobin 14.6, platelet count 208. Sodium 136, potassium 4.4, chloride 105, CO2 24, BUN 17 creatinine 0.62, blood sugar 158. Lactic acid 1.6, total bilirubin 1.6, liver enzymes normal, albumin 3.8. Troponin 0.021. Urinalysis clear, ketones 1+, leukoesterase small, no blood, 1 RBCs. Patient admitted to the cardiac stepdown unit for new onset atrial fibrillation cardiology consult requested. Review of Systems Constitutional: Reports fatigue, Reports weakness, Denies anorexia, Denies chills, Denies chronic headaches, Denies daytime sleepiness, Denies fever, Denies lethargy, Denies malaise, Denies poor appetite Eyes: denies blurred vision, denies pain Ears, nose, mouth and throat: Reports vertigo, Denies dysphagia, Denies nasal c ongestion, Denies nasal discharge Cardiovascular: Reports chest pain, Reports lightheadedness, Denies shortness of breath Respiratory: Denies congestion, Denies cough, Denies cough with sputum, Denies dyspnea, Denies excessive sputum, Denies hemoptysis, Denies home oxygen, Denies respiratory infections, Denies sleep apnea, Denies wheezing Gastrointestinal: Reports nausea, Reports vomiting, Denies abdominal pain, Denies constipation, Denies diarrhea, Denies loss of appetite Genitourinary: Denies dysuria, Denies hematuria, Denies urgency, Denies urinary frequency Menstruation: Reports postmenopausal Musculoskeletal: Denies frequent falls, Denies gait dysfunction, Denies muscle weakness, Denies myalgias Integumentary: Denies pruritus, Denies rash, Denies wounds Neurological: Denies change in mentation, Denies change in speech, Denies gait dysfunction, Denies numbness, Denies seizures, Denies weakness Psychiatric: Denies anxiety, Denies depression Endocrine: Denies fatigue, Denies weight change Past Medical History Past Medical History: Hyperlipidemia, Hypertension, Osteoarthritis (OA) Additional Past Medical History / Comment(s): OSTEOPOROSIS. History of Any Multi-Drug Resistant Organisms: None Reported Past Surgical History: Orthopedic Surgery, Tonsillectomy, Tubal Ligation Additional Past Surgical History / Comment(s): BILATERAL KNEES. Past Anesthesia/Blood Transfusion Reactions: No Reported Reaction Past Psychological History: No Psychological Hx Reported Smoking Status: Never smoker Past Alcohol Use History: None Reported Additional Past Alcohol Use History / Comment(s): Patient is a lifelong nonsmoker, no alcohol use, no illicit drug use or marijuana use. Patient does not require CPAP, oxygen. She is ambulatory without equipment. Past Drug Use History: None Reported - Past Family History Father Additional Family Medical History / Comment(s): Father at age 80 from bladder cancer with history of CVA. Mother Additional Family Medical History / Comment(s): Mother at age 42 from a myocardial infarction. Brother(s) Additional Family Medical History / Comment(s): Patient was 4 brothers and one has history of factor V, 3 have had strokes. Patient 6 sisters with no major medical problems. Patient has one son 49 years of age with no major medical problems. Patient also has one adopted daughter. Medications and Allergies Home Medications Medication Instructions Recorded Confirmed Type Ascorbic Acid [Vitamin C] 500 mg PO DAILY 03/14/18 08/27/19 History Atorvastatin Calcium [Lipitor] 10 mg PO DAILY 03/14/18 08/27/19 History Cholecalciferol [Vitamin D3] 5,000 unit PO DAILY 03/14/18 08/27/19 History Magnesium 200 mg PO DAILY 03/14/18 08/27/19 History Multivitamins, Thera [Multivitamin 1 tab PO DAILY 03/14/18 08/27/19 History (formulary)] Aspirin EC [Ecotrin Low Dose] 81 mg PO DAILY 08/27/19 08/27/19 History Calcium Carb/Vitamin D3/Vit K1 1 tab PO DAILY 08/27/19 08/27/19 History [Citracal Soft Chew] Olmesartan Medoxomil 20 mg PO DAILY@1900 08/27/19 08/27/19 History Allergies Allergy/AdvReac Type Severity Reaction Status Date / Time contact metal agent Allergy Unknown Unknown Verified 08/27/19 09:28 Physical Exam Vitals: Vital Signs Temp Pulse Pulse Resp BP BP Pulse Ox 08/27/19 04:30 97.8 F 140 H 18 105/75 94 L 08/27/19 04:18 98.9 F 90 18 120/90 94 L 08/27/19 03:49 168 H 18 108/91 93 L 08/27/19 03:17 168 H 18 138/94 96 08/27/19 02:45 180 H 18 146/82 96 08/27/19 02:03 98.4 F 98 16 171/129 94 L Intake and Output 08/26/19 08/27/19 08/27/19 22:59 06:59 14:59 Intake Total 100 Balance 100 Intake: Oral 100 Other: Weight 73 kg Gen: This is a 78-year-old female. Patient is resting in bed and appears to be comfortable and in no acute distress. HEENT: Head is atraumatic, normocephalic. Pupils equal, round. Sclerae is anicteric. NECK: Supple. No JVD. No lymphadenopathy. No thyromegaly. LUNGS: Clear to auscultation. No wheezes or rhonchi. No intercostal retractions. HEART: Irregularly irregular rate and rhythm. No murmur. ABDOMEN: Soft. Bowel sounds are present. No masses. No tenderness. EXTREMITIES: No pedal edema. No calf tenderness. Dorsalis pedis +2 bilaterally. NEUROLOGICAL: Patient is awake, alert and oriented x3. Cranial nerves 2 through 12 are grossly intact. Results CBC & Chem 7: 08/27/19 03:12 08/27/19 03:12 Labs: Abnormal Lab Results - Last 24 Hours (Table) 08/27/19 08/27/19 08/27/19 Range/Units 03:12 03:12 04:05 WBC 13.1 H (3.8-10.6) k/uL Neutrophils # 11.8 H (1.3-7.7) k/uL Lymphocytes # 0.8 L (1.0-4.8) k/uL Sodium 136 L (137-145) mmol/L Glucose 158 H (74-99) mg/dL Total Bilirubin 1.6 H (0.2-1.3) mg/dL Urine Ketones 1+ H (Negative) Ur Leukocyte Esterase Small H (Negative) Urine Mucus Rare H (None) /hpf Thrombosis Risk Factor Assmnt - DVT/VTE Prophylaxis DVT/VTE Prophylaxis: Pharmacologic Prophylaxis ordered - Choose All That Apply Any of the Below Risk Factors Present?: Yes Each Factor Represents 1 point: Obesity (BMI >25) Each Risk Factor Represents 3 Points: Age 75 years or older Thrombosis Risk Factor Assessment Total Risk Factor Score: 4 Thrombosis Risk Factor Assessment Level: Moderate Risk Assessment and Plan Plan: 1. New onset atrial fibrillation with RVR, most likely paroxysmal atrial fibrillation. Patient was started on a Cardizem drip at 5 mg per hour. Patient transition to Lopressor and eliquis and aspirin by cardiology. Lasix 20 mg IV 1. Discontinue IV fluids. 2. Hypertension. Continue losartan 50 mg twice daily 3. Hyperlipidemia. Continue atorvastatin 10 mg at bedtime 4. Hyperglycemia with no previous history of diabetes. Hemoglobin A1c. 5. Generalized osteoarthritis, stable. 6. Osteoporosis, stable. Continue vitamin D. 7. GI prophylaxis. Pepcid. 8. DVT prophylaxis. Eliquis. Patient will be admitted to the hospital for a minimum of 2 night stay. Discharge plan: home on Tuesday Impression and plan of care have been directed as dictated by the signing physician. Kerry Green nurse practitioner acting as scribe for signing physician.
[2019-08-27 18:37] LABS: Hemoglobin A1C 5.7 % (4.0-6.0)
[2019-08-27] MEDS: FUROSEMIDE 10 MG/ML 4 ML VIAL IV SCH (19:37)
[2019-08-27] MEDS: ATORVASTATIN 10 MG TAB PO SCH (19:37)
[2019-08-28] MEDS: DILTIAZEM 125 MG in SODIUM CHLORIDE 0.9% 100 ML IV SCH (02:57)
[2019-08-28 06:07] LABS: Cholesterol 153 mg/dL (<200); HDL Cholesterol 58 mg/dL (40-60); LDL Cholesterol,Calculated 74 mg/dL (0-99); Triglycerides 103 mg/dL (<150)
[2019-08-28] MEDS: APIXABAN 5 MG TAB PO SCH ×2 (08:01→21:09)
[2019-08-28] MEDS: CHOLECALCIFEROL 1,000 UNIT TAB PO SCH (08:01)
[2019-08-28] MEDS: FAMOTIDINE 20 MG TAB PO SCH (08:01)
[2019-08-28] MEDS: MAGNESIUM OXIDE 400 MG TAB PO SCH (08:02)
[2019-08-28] MEDS: FUROSEMIDE 10 MG/ML 4 ML VIAL IV SCH (08:02)
[2019-08-28] MEDS: LOSARTAN 25 MG TAB PO SCH (08:02)
[2019-08-28] MEDS: METOPROLOL TARTRATE 25 MG TAB PO SCH ×2 (08:03→21:09)
[2019-08-28] MEDS: MULTIVITAMINS, THERA 1 EACH TAB PO SCH (08:03)
[2019-08-28] MEDS ORDERED: DEXTROSE 5% IN WATER 100 ML with AMIODARONE 150 MG IV ONE (09:00)
[2019-08-28] MEDS ORDERED: ASPIRIN 81 MG PO SCH (09:00)
[2019-08-28] MEDS ORDERED: ASPIRIN 325 MG TAB PO SCH (09:00)
[2019-08-28] MEDS ORDERED: AMIODARONE 360 MG in DEXTROSE 5% IN WATER 200 ML IV ONE ×2 (09:10)
--- NOTE | 2019-08-28 10:27 | P.PN ---
Subjective Progress Note Date: 08/28/19 This is a pleasant 78-year-old female with known history of hypertension, hyperlipidemia, she is a nondiabetic, nonsmoker, no EtOH, drinks one cup of coffee per day. Recently he was on vacation in [place], she went to [place] on August 09 and return back on the . Since then the patient states that she's been in full isolation at home. She presents to the hospital with symptoms of dizziness and lightheadedness. Patient also states that she had an episode of nausea with mild vomiting. Patient states that she became short of breath, and felt at times like she may pass out. On presentation to the emergency room her EKG showed atrial fibrillation with a rapid ventricular response. According to the patient, she denies any prior history of atrial fibrillation. Blood pressure on arrival here 170/120 with a heart rate of 130s to 140s. She is afebrile. 94% on room air on arrival. This mornings heart rate continues to be in the 1:30 to 140 range. She is currently on Cardizem at 5 mg per hour. Laboratory data was reviewed, white blood cell count 13.1, hemoglobin 14.6, platelet count 208. Sodium 136, potassium 4.4, BUN 17, creatinine 0.6, CO2 24 with a chloride of 105. Magnesium 2.1, total bilirubin 1.6. TSH level is normal, troponin 0.021. At the time of my examination this morning, patient feels tired, otherwise no overt complaints. She states that the day prior to coming to the hospital, she slept for 18 hours straight. 08/28/2019 Patient seen and examined this morning, overall she feels well, her heart rate continues to be in the 120 to 130 range. Blood pressure 106/70. She is currently on IV Cardizem along with beta terry. We will add amiodarone to her medication regime, administering a bolus and then the drip per protocol. If the heart rate comes under better control we will discontinue the IV Cardizem drip. Objective - Vital Signs Vital signs: Vital Signs Temp 97.7 F 08/28/19 07:57 Pulse 103 H 08/28/19 09:53 Resp 16 08/28/19 07:57 BP 101/71 08/28/19 09:53 Pulse Ox 94 L 08/28/19 09:47 Intake & Output 08/27/19 08/28/19 08/28/19 18:59 06:59 18:59 Intake Total 396 122.083 480 Output Total 440 Balance 396 -317.917 480 Weight 72 kg Intake: Intake, IV Titration 160 122.083 Amount Diltiazem 125 mg In 122.083 Sodium Chloride 0.9% 100 ml @ 10 MG/HR 10 mls/hr IV .[id number] [facility] Rx#: [id number] Sodium Chloride 0.9% 1, 160 000 ml @ 20 mls/hr IV . Q24H [facility] Rx#:[id number] Oral 236 480 Output: Urine 440 Other: # Voids 2 1 # Bowel Movements 1 - Exam PHYSICAL EXAMINATION: GENERAL: 78-year-old female in no acute distress at the time of my examination HEENT: Head is atraumatic, normocephalic. Pupils equal, round. Sclera anicteric. Conjunctiva are clear. Mucous membranes of the mouth are moist. Neck is supple. There is no elevated jugular venous pressure. No carotid bruit is heard. HEART EXAMINATION: Heart S1 and S2 irregularly irregular CHEST EXAMINATION: Lungs are clear to auscultation and precussion. No chest wall tenderness is noted on palpation or with deep breathing. ABDOMEN: Soft, nontender. Bowel sounds are heard. No organomegaly noted. EXTREMITIES: 2+ peripheral pulses with no evidence of peripheral edema and no calf tenderness noted. NEUROLOGIC patient is awake, alert and oriented 3 .] . - Labs CBC & Chem 7: 08/27/19 03:12 08/27/19 03:12 Assessment and Plan Plan: Assessment and plan #1 atrial fibrillation with rapid ventricular response, appears to be of new onset for the patient #2 hypertension #3 hyperlipidemia #4 Chf, diastolic acute on chronic ,likely secondary to afib with RVR Plan We will add amiodarone to the patient's medication regime, bolus and drip per protocol. If the heart rate comes under adequate control we will discontinue the IV Cardizem drip. Echocardiogram with Doppler study revealed a normal left ventricular systolic function. Discontinue the IV Lasix today, start the patient on a small dose of oral Lasix. Repeat chest x-ray in the morning. DNP note has been reviewed, I agree with a documented findings and plan of care. Patient was seen and examined.
--- NOTE | 2019-08-28 12:43 | P.PN ---
Subjective Progress Note Date: 08/28/19 This is a 78-year-old female patient of Dr. Stuart with past medical history of hypertension, hyperlipidemia, generalized osteoarthritis, osteoporosis. Patient states that she had onset of dizziness when she was walking up the stairs. She states she also had chest pain at that time. P atient also had nausea with episode of vomiting, shortness of breath. She felt like she was going to pass out. This is a first episode like this. Patient is seen today on the cardiac stepdown unit is ambulating in her room and denies any lightheadedness or dizziness. She still has some nausea. Patient last saw Dr. Navarrete one month ago. She states she's also had some episodes of bleeding but to be vaginal or urinary bladder bleeding. She denies having any bleeding at this time. Dr. Stuart was aware of this at her last appointment 1 month ago but it was decided that this would be worked up after she returns from [place]. Patient denies having any history of strokes, DVTs, or ulcers. Patient came into [facility] emergency center for evaluation. Initial blood pressure was 171/129, afebrile, heart rate 98, pulse ox 94% on room air. Subsequently, patient had heart rate of 130-180s and EKG was atrial fibrillation. Patient was started on Cardizem. WBC 13.1, hemoglobin 14.6, platelet count 208. Sodium 136, potassium 4.4, chloride 105, CO2 24, BUN 17 creatinine 0.62, blood sugar 158. Lactic acid 1.6, total bilirubin 1.6, liver enzymes normal, albumin 3.8. Troponin 0.021. Urinalysis clear, ketones 1+, leukoesterase small, no blood, 1 RBCs. Patient admitted to the cardiac stepdown unit for new onset atrial fibrillation cardiology consult requested. 08/27: Patient continues to be A. fib RVR up to 150 bpm, blood pressure 137/66, pulse ox 90% on room air, afebrile. Triglycerides 103, cholesterol 153, LDL 74, HDL 58. TSH 0.887. Troponins were 0.021, 0.033 and 0.03. Hemoglobin A1c 6.1. Cardiology has started the patient on amiodarone drip this morning. Patient states that she has shortness of breath with movement. She does feel some palpitations and feels like her heart is dancing. Objective - Vital Signs Vital signs: Vital Signs Temp 97.7 F 08/28/19 07:57 Pulse 153 H 08/28/19 07:57 Resp 16 08/28/19 07:57 BP 137/66 08/28/19 07:57 Pulse Ox 98 08/28/19 07:57 Intake & Output 08/27/19 08/28/19 08/28/19 18:59 06:59 18:59 Intake Total 396 122.083 480 Output Total 440 Balance 396 -317.917 480 Weight 72 kg Intake: Intake, IV Titration 160 122.083 Amount Diltiazem 125 mg In 122.083 Sodium Chloride 0.9% 100 ml @ 10 MG/HR 10 mls/hr IV .[id number] PHUONG Rx#: [id number] Sodium Chloride 0.9% 1, 160 000 ml @ 20 mls/hr IV . Q24H PHUONG Rx#:[id number] Oral 236 480 Output: Urine 440 Other: # Voids 2 1 # Bowel Movements 1 - Exam Review of Systems Constitutional: Reports fatigue, Reports weakness, Denies anorexia, Denies chills, Denies chronic headaches, Denies daytime sleepiness, Denies fever, Denies lethargy, Denies malaise, Denies poor appetite Ears, nose, mouth and throat: Reports vertigo, Denies dysphagia, Denies nasal congestion, Denies nasal discharge Cardiovascular: Reports chest pain, Reports lightheadedness, Denies shortness of breath, reports palpitations Respiratory: Denies congestion, Denies cough, Denies cough with sputum, Denies dyspnea, Denies excessive sputum, Denies hemoptysis, Denies home oxygen, Denies respiratory infections, Denies sleep apnea, Denies wheezing Gastrointestinal: Reports nausea, Reports vomiting, Denies abdominal pain, Denies constipation, Denies diarrhea, Denies loss of appetite Genitourinary: Denies dysuria, Denies hematuria, Denies urgency, Denies urinary frequency Menstruation: Reports postmenopausal Musculoskeletal: Denies frequent falls, Denies gait dysfunction, Denies muscle weakness, Denies myalgias Integumentary: Denies pruritus, Denies rash, Denies wounds Neurological: Denies change in mentation, Denies change in speech, Denies gait dysfunction, Denies numbness, Denies seizures, Denies weakness Psychiatric: Denies anxiety, Denies depression Endocrine: Denies fatigue, Denies weight change Physical examination Gen: This is a 78-year-old female. Patient is resting in recliner and appears to be comfortable and in no acute distress. HEENT: Head is atraumatic, normocephalic. Pupils equal, round. Sclerae is anicteric. NECK: Supple. No JVD. No lymphadenopathy. No thyromegaly. LUNGS: Clear to auscultation. No wheezes or rhonchi. No intercostal retractions. HEART: Irregularly irregular rate and rhythm. No murmur. ABDOMEN: Soft. Bowel sounds are present. No masses. No tenderness. EXTREMITIES: No pedal edema. No calf tenderness. Dorsalis pedis +2 bilaterally. NEUROLOGICAL: Patient is awake, alert and oriented x3. Cranial nerves 2 through 12 are grossly intact. - Labs CBC & Chem 7: 08/27/19 03:12 08/27/19 03:12 Assessment and Plan Plan: 1. New onset atrial fibrillation with RVR, most likely paroxysmal atrial fibrillation. Continue Lopressor and eliquis and aspirin. Amiodarone drip started this morning.. 2. Hypertension. Continue losartan 50 mg twice daily 3. Hyperlipidemia. Continue atorvastatin 10 mg at bedtime 4. Hyperglycemia with no previous history of diabetes. Hemoglobin A1c 6.1. 5. Generalized osteoarthritis, stable. 6. Osteoporosis, stable. Continue vitamin D. 7. GI prophylaxis. Pepcid. 8. DVT prophylaxis. Eliquis. Discharge plan: home on Tuesday Impression and plan of care have been directed as dictated by the signing physician. Kerry Green nurse practitioner acting as scribe for signing physician.
[2019-08-28] MEDS: AMIODARONE 300 MG in DEXTROSE 5% IN WATER 250 ML IV SCH ×2 (14:56)
[2019-08-28] MEDS: MELATONIN 5 MG TABLET PO SCH (21:08)
[2019-08-28] MEDS: ATORVASTATIN 10 MG TAB PO SCH (21:09)
[2019-08-29] MEDS: AMIODARONE 300 MG in DEXTROSE 5% IN WATER 250 ML IV SCH ×2 (02:21)
[2019-08-29] MEDS: DILTIAZEM 125 MG in SODIUM CHLORIDE 0.9% 100 ML IV SCH (03:35)
--- NOTE | 2019-08-29 08:26 | XR ---
EXAMINATION TYPE: XR chest 2V DATE OF EXAM: 08/29/2019 COMPARISON: 08/27/2019 HISTORY: Shortness of breath TECHNIQUE: Frontal and lateral views of the chest are obtained. FINDINGS: Scattered senescent parenchymal changes noted. Hyperinflation compatible with COPD. Improving but persistent interstitial infiltrates identified. Heart size is stable. Mediastinal structures are stable and grossly unremarkable. No evidence for hilar prominence. Degenerative changes dorsal spine. IMPRESSION: 1. Improving but persistent interstitial infiltrates identified. .
[2019-08-29] MEDS ORDERED: FUROSEMIDE 20 MG TAB PO SCH (09:00)
[2019-08-29] MEDS ORDERED: METOPROLOL TARTRATE 25 MG TAB PO SCH (09:00)
[2019-08-29] MEDS: MAGNESIUM OXIDE 400 MG TAB PO SCH (09:03)
[2019-08-29] MEDS: METOPROLOL TARTRATE 50 MG TAB PO SCH ×3 (09:03→20:19)
[2019-08-29] MEDS: MULTIVITAMINS, THERA 1 EACH TAB PO SCH (09:03)
[2019-08-29] MEDS: FAMOTIDINE 20 MG TAB PO SCH (09:03)
[2019-08-29] MEDS: CHOLECALCIFEROL 1,000 UNIT TAB PO SCH (09:03)
[2019-08-29] MEDS: VERAPAMIL 80 MG TAB PO SCH ×2 (09:04→14:38)
[2019-08-29] MEDS: APIXABAN 5 MG TAB PO SCH ×2 (09:04→20:19)
[2019-08-29] MEDS: LOSARTAN 25 MG TAB PO SCH (09:04)
[2019-08-29] MEDS ORDERED: DIGOXIN 250 MCG/ML 2 ML AMP IVP ONE (10:41)
--- NOTE | 2019-08-29 10:41 | P.PN ---
Subjective Progress Note Date: 08/29/19 This is a pleasant 78-year-old female with known history of hypertension, hyperlipidemia, she is a nondiabetic, nonsmoker, no EtOH, drinks one cup of coffee per day. Recently he was on vacation in [place], she went to [place] on August 09 and return back on the . Since then the patient states that she's been in full isolation at home. She presents to the hospital with symptoms of dizziness and lightheadedness. Patient also states that she had an episode of nausea with mild vomiting. Patient states that she became short of breath, and felt at times like she may pass out. On presentation to the emergency room her EKG showed atrial fibrillation with a rapid ventricular response. According to the patient, she denies any prior history of atrial fibrillation. Blood pressure on arrival here 170/120 with a heart rate of 130s to 140s. She is afebrile. 94% on room air on arrival. This mornings heart rate continues to be in the 1:30 to 140 range. She is currently on Cardizem at 5 mg per hour. Laboratory data was reviewed, white blood cell count 13.1, hemoglobin 14.6, platelet count 208. Sodium 136, potassium 4.4, BUN 17, creatinine 0.6, CO2 24 with a chloride of 105. Magnesium 2.1, total bilirubin 1.6. TSH level is normal, troponin 0.021. At the time of my examination this morning, patient feels tired, otherwise no overt complaints. She states that the day prior to coming to the hospital, she slept for 18 hours straight. 08/28/2019 Patient seen and examined this morning, overall she feels well, her heart rate continues to be in the 120 to 130 range. Blood pressure 106/70. She is currently on IV Cardizem along with beta terry. We will add amiodarone to her medication regime, administering a bolus and then the drip per protocol. If the heart rate comes under better control we will discontinue the IV Cardizem drip. 08/29/2019 Patient seen and examined this morning, sitting up in the chair at bedside. Continues to have a rapid heart rate in the 120 to 1:30 range. She is feeling nauseated, could be secondary to the amiodarone. We will discontinue the amiodarone, increase the metoprolol to 50 mg 3 times a day, add verapamil 80 mg 3 times a day. And give the patient one time dose of IV Lanoxin. If the heart rate comes down nicely, we will discontinue the IV Cardizem Objective - Vital Signs Vital signs: Vital Signs Temp 98.3 F 08/29/19 04:00 Pulse 120 H 08/29/19 04:00 Resp 16 08/29/19 04:00 BP 160/95 08/29/19 04:00 Pulse Ox 94 L 08/29/19 04:00 Intake & Output 08/28/19 08/29/19 08/29/19 18:59 06:59 18:59 Intake Total 960 613.167 Output Total 300 Balance 960 313.167 Weight 71.9 kg Intake: Intake, IV Titration 373.167 Amount Amiodarone 300 mg In 250 Dextrose 5% in Water 250 ml @ 0.5 MG/MIN 25 mls/hr IV .Q10H PHUONG Rx#: [id number] Diltiazem 125 mg In 123.167 Sodium Chloride 0.9% 100 ml @ 10 MG/HR 10 mls/hr IV .[id number] PHUONG Rx#: [id number] Oral 960 240 Output: Urine 300 Other: # Voids 2 1 - Exam PHYSICAL EXAMINATION: GENERAL: 78-year-old female in no acute distress at the time of my examination HEENT: Head is atraumatic, normocephalic. Pupils equal, round. Sclera anicteric. Conjunctiva are clear. Mucous membranes of the mouth are moist. Neck is supple. There is no elevated jugular venous pressure. No carotid bruit is heard. HEART EXAMINATION: Heart S1 and S2 irregularly irregular CHEST EXAMINATION: Lungs are clear to auscultation and precussion. No chest wall tenderness is noted on palpation or with deep breathing. ABDOMEN: Soft, nontender. Bowel sounds are heard. No organomegaly noted. EXTREMITIES: 2+ peripheral pulses with no evidence of peripheral edema and no calf tenderness noted. NEUROLOGIC patient is awake, alert and oriented 3 .] . - Labs CBC & Chem 7: 08/27/19 03:12 08/27/19 03:12 Assessment and Plan Plan: Assessment and plan #1 atrial fibrillation with rapid ventricular response, appears to be of new onset for the patient #2 hypertension #3 hyperlipidemia #4 Chf, diastolic acute on chronic ,likely secondary to afib with RVR Plan Because of the patient's nausea, we will discontinue the amiodarone, increase the dose of metoprolol to 50 mg 3 times a day, add verapamil 80 mg 1 tablet by mouth 3 times a day, give the patient a one-time dose of IV Lanoxin. Continue to monitor the patient for 24 hours. If the heart rate stabilizes we will discontinue the IV Cardizem. Plan for possible discharge home in 24 hours if stable. DNP note has been reviewed, I agree with a documented findings and plan of care. Patient was seen and examined.
--- NOTE | 2019-08-29 13:46 | P.PN ---
Subjective Progress Note Date: 08/29/19 This is a 78-year-old female patient of Dr. Stuart with past medical history of hypertension, hyperlipidemia, generalized osteoarthritis, osteoporosis. Patient states that she had onset of dizziness when she was walking up the stairs. She states she also had chest pain at that time. P atient also had nausea with episode of vomiting, shortness of breath. She felt like she was going to pass out. This is a first episode like this. Patient is seen today on the cardiac stepdown unit is ambulating in her room and denies any lightheadedness or dizziness. She still has some nausea. Patient last saw Dr. Navarrete one month ago. She states she's also had some episodes of bleeding but to be vaginal or urinary bladder bleeding. She denies having any bleeding at this time. Dr. Stuart was aware of this at her last appointment 1 month ago but it was decided that this would be worked up after she returns from [place]. Patient denies having any history of strokes, DVTs, or ulcers. Patient came into [facility] emergency center for evaluation. Initial blood pressure was 171/129, afebrile, heart rate 98, pulse ox 94% on room air. Subsequently, patient had heart rate of 130-180s and EKG was atrial fibrillation. Patient was started on Cardizem. WBC 13.1, hemoglobin 14.6, platelet count 208. Sodium 136, potassium 4.4, chloride 105, CO2 24, BUN 17 creatinine 0.62, blood sugar 158. Lactic acid 1.6, total bilirubin 1.6, liver enzymes normal, albumin 3.8. Troponin 0.021. Urinalysis clear, ketones 1+, leukoesterase small, no blood, 1 RBCs. Patient admitted to the cardiac stepdown unit for new onset atrial fibrillation cardiology consult requested. 08/27: Patient continues to be A. fib RVR up to 150 bpm, blood pressure 137/66, pulse ox 90% on room air, afebrile. Triglycerides 103, cholesterol 153, LDL 74, HDL 58. TSH 0.887. Troponins were 0.021, 0.033 and 0.03. Hemoglobin A1c 6.1. Cardiology has started the patient on amiodarone drip this morning. Patient states that she has shortness of breath with movement. She does feel some palpitations and feels like her heart is dancing. 08/28: Chest x-ray this morning reveals improving but persistent interstitial infiltrates. Patient's heart rate has been controlled but this morning running up to 130s. Patient remains in atrial fibrillation. Cardiology has discontinued amiodarone due to patient complaining of nausea, increased Lopressor to 50 mg twice daily and added verapamil 80 mg 3 times daily and ordered for 1 dose of IV Lanoxin. Plan is to discontinue IV Cardizem once rate is controlled. Lasix 20 mg daily has been added. Patient has been afebrile, blood pressure 160/95, pulse ox 94% on room air. Anticipate possible discharge tomorrow. Objective - Vital Signs Vital signs: Vital Signs Temp 98.3 F 08/29/19 04:00 Pulse 120 H 08/29/19 04:00 Resp 16 08/29/19 04:00 BP 160/95 08/29/19 04:00 Pulse Ox 94 L 08/29/19 04:00 Intake & Output 08/28/19 08/29/19 08/29/19 18:59 06:59 18:59 Intake Total 960 613.167 Output Total 300 Balance 960 313.167 Weight 71.9 kg Intake: Intake, IV Titration 373.167 Amount Amiodarone 300 mg In 250 Dextrose 5% in Water 250 ml @ 0.5 MG/MIN 25 mls/hr IV .Q10H [facility]UONG Rx#: [id number] Diltiazem 125 mg In 123.167 Sodium Chloride 0.9% 100 ml @ 10 MG/HR 10 mls/hr IV .[id number] PHUONG Rx#: [id number] Oral 960 240 Output: Urine 300 Other: # Voids 2 1 - Exam Review of Systems Constitutional: Reports fatigue, Reports weakness, Denies anorexia, Denies chills, Denies chronic headaches, Denies daytime sleepiness, Denies fever, Denies lethargy, Denies malaise, Denies poor appetite Ears, nose, mouth and throat: Reports vertigo, Denies dysphagia, Denies nasal congestion, Denies nasal discharge Cardiovascular: Denies chest pain, denies lightheadedness, Denies shortness of breath, reports palpitations Respiratory: Denies congestion, Denies cough, Denies cough with sputum, Denies dyspnea, Denies excessive sputum, Denies hemoptysis, Denies home oxygen, Denies respiratory infections, Denies sleep apnea, Denies wheezing Gastrointestinal: Reports nausea, denies vomiting, Denies abdominal pain, Denies constipation, Denies diarrhea, Denies loss of appetite Genitourinary: Denies dysuria, Denies hematuria, Denies urgency, Denies urinary frequency Menstruation: Reports postmenopausal Musculoskeletal: Denies frequent falls, Denies gait dysfunction, Denies muscle weakness, Denies myalgias Integumentary: Denies pruritus, Denies rash, Denies wounds Neurological: Denies change in mentation, Denies change in speech, Denies gait dysfunction, Denies numbness, Denies seizures, Denies weakness Psychiatric: Denies anxiety, Denies depression Endocrine: Denies fatigue, Denies weight change Physical examination Gen: This is a 78-year-old female. Patient is resting on bench seat in her room and appears to be comfortable and in no acute distress. HEENT: Head is atraumatic, normocephalic. Pupils equal, round. Sclerae is anicteric. NECK: Supple. No JVD. No lymphadenopathy. No thyromegaly. LUNGS: Clear to auscultation. No wheezes or rhonchi. No intercostal retractions. HEART: Irregularly irregular rate and rhythm. No murmur. ABDOMEN: Soft. Bowel sounds are present. No masses. No tenderness. EXTREMITIES: No pedal edema. No calf tenderness. Dorsalis pedis +2 bilaterally. NEUROLOGICAL: Patient is awake, alert and oriented x3. Cranial nerves 2 through 12 are grossly intact. - Labs CBC & Chem 7: 08/27/19 03:12 08/27/19 03:12 Assessment and Plan Plan: 1. New onset atrial fibrillation with RVR, most likely paroxysmal atrial fibrillation. Continue Lopressor increased to 50 mg 3 times daily and eliquis and aspirin. Patient ordered for 1 dose of IV Lanoxin and started on oral verapamil 80 mg 3 times daily and Lasix 20 mg daily. Hoping to discontinue Cardizem drip. 2. Hypertension. Continue losartan 25 mg daily. 3. Hyperlipidemia. Continue atorvastatin 10 mg at bedtime 4. Hyperglycemia with no previous history of diabetes. Hemoglobin A1c 6.1. 5. Generalized osteoarthritis, stable. 6. Osteoporosis, stable. Continue vitamin D. 7. GI prophylaxis. Pepcid. 8. DVT prophylaxis. Eliquis. Discharge plan: home Impression and plan of care have been directed as dictated by the signing physician. Kerry Green nurse practitioner acting as scribe for signing physician.
[2019-08-29] MEDS: ATORVASTATIN 10 MG TAB PO SCH (20:19)
[2019-08-29] MEDS: MELATONIN 5 MG TABLET PO SCH (20:19)
[2019-08-29 23:00] VITALS: RESP 18
[2019-08-30 07:01] LABS: HCT 36.5 % (34.0-46.0); HGB 11.9 gm/dL (11.4-16.0); MCH 29.9 pg (25.0-35.0); MCHC 32.4 g/dL (31.0-37.0); MCV 92.3 fL (80.0-100.0); Mean Platelet Volume 8.2; Platelet Count 192 k/uL (150-450); RBC 3.96 m/uL (3.80-5.40); RDW 13.3 % (11.5-15.5); WBC 5.8 k/uL (3.8-10.6)
[2019-08-30 07:14] LABS: African American GFR (CKD) >90 (>60 ml/min/1.73 sqM); Anion Gap 4 mmol/L; Blood Urea Nitrogen 17 mg/dL (7-17); Calcium 8.1 mg/dL (8.4-10.2); Carbon Dioxide 29 mmol/L (22-30); Chloride 104 mmol/L (98-107); Glucose 101 mg/dL (74-99); Non-African American GFR(CKD) 84 (>60 ml/min/1.73 sqM); Potassium 4.3 mmol/L (3.5-5.1); Sodium 137 mmol/L (137-145)
[2019-08-30] MEDS ORDERED: DIGOXIN 250 MCG/ML 2 ML AMP IVP ONE (07:48)
[2019-08-30] MEDS ORDERED: VERAPAMIL 40 MG TAB PO SCH ×2 (09:00)
[2019-08-30] MEDS: CHOLECALCIFEROL 1,000 UNIT TAB PO SCH (09:12)
[2019-08-30] MEDS: APIXABAN 5 MG TAB PO SCH (09:12)
[2019-08-30] MEDS: FAMOTIDINE 20 MG TAB PO SCH (09:12)
[2019-08-30] MEDS: LOSARTAN 25 MG TAB PO SCH (09:12)
[2019-08-30] MEDS: METOPROLOL TARTRATE 50 MG TAB PO SCH (09:12)
[2019-08-30] MEDS: MULTIVITAMINS, THERA 1 EACH TAB PO SCH (09:13)
[2019-08-30] MEDS: MAGNESIUM OXIDE 400 MG TAB PO SCH (09:14)
--- NOTE | 2019-08-30 09:16 | PN ---
PROGRESS NOTE This lady was on a Cardizem drip and I added verapamil also along with a dose of digoxin and beta terry. Her heart rate came down quite a bit yesterday. However, today she is back tachycardic. I am recommending that we increase the verapamil to 80 mg t.i.d., metoprolol at 50 mg t.i.d., avoid Cardizem which she had lot of nausea with. If this combination keeps her rate in the 100 beats per minute or less, she can be discharged today. LV function is well preserved. She is anticoagulated with Eliquis 5 mg b.i.d. I will see her in the office in a week or two. There is no JVD. S1, S2 heard normally. Regular rate and rhythm noted, Short systolic murmur noted. Lungs are clear. Abdomen and lower extremity exam unchanged. Hopefully with a combination of metoprolol tartrate 50 mg t.i.d., verapamil 80 mg t.i.d. she will do better. I will also give her a dose of 0.125 mg digoxin IV push. Possible discharge today. MMODL / IJN: [id number] /
[2019-08-30 12:39] VITALS: TEMP 97.7
[2019-08-30 13:44] VITALS: BP 142/83; PULSE 85
--- NOTE | 2019-08-30 14:25 | P.DS ---
Providers Date of admission: 08/27/19 04:04 Expected date of discharge: 08/30/19 Attending physician: Edvin Stuart Consults: 08/27/19 04:04 Consult Physician Urgent Consulting Provider: Camilo Yeh Consult Reason/Comments: Review onset atrial fibrillation Do you want consulting provider notified?: Already Contacted Primary care physician: [facility] Hospital Course: This is a 78-year-old female patient of Dr. Stuart with past medical history of hypertension, hyperlipidemia, generalized osteoarthritis, osteoporosis. Patient states that she had onset of dizziness when she was walking up the stairs. She states she also had chest pain at that time. Patient also had nausea with episode of vomiting, shortness of breath. She felt like she was going to pass out. This is a first episode like this. Patient is seen today on the cardiac stepdown unit is ambulating in her room and denies any lightheadedness or dizziness. She still has some nausea. Patient last saw Dr. Navarrete one month ago. She states she's also had some episodes of bleeding but to be vaginal or urinary bladder bleeding. She denies having any bleeding at this time. Dr. Stuart was aware of this at her last appointment 1 month ago but it was decided that this would be worked up after she returns from [place]. Patient denies having any history of strokes, DVTs, or ulcers. Patient came into [facility] emergency center for evaluation. Initial blood pressure was 171/129, afebrile, heart rate 98, pulse ox 94% on room air. Subsequently, patient had heart rate of 130-180s and EKG was atrial fibrillation. Patient was started on Cardizem. WBC 13.1, hemoglobin 14.6, platelet count 208. Sodium 136, potassium 4.4, chloride 105, CO2 24, BUN 17 creatinine 0.62, blood sugar 158. Lactic acid 1.6, total bilirubin 1.6, liver enzymes normal, albumin 3.8. Troponin 0.021. Urinalysis clear, ketones 1+, leukoesterase small, no blood, 1 RBCs. Patient admitted to the cardiac stepdown unit for new onset atrial fibrillation cardiology consult requested. 08/27: Patient continues to be A. fib RVR up to 150 bpm, blood pressure 137/66, pulse ox 90% on room air, afebrile. Triglycerides 103, cholesterol 153, LDL 74, HDL 58. TSH 0.887. Troponins were 0.021, 0.033 and 0.03. Hemoglobin A1c 6.1. Cardiology has started the patient on amiodarone drip this morning. Patient states that she has shortness of breath with movement. She does feel some palpitations and feels like her heart is dancing. 08/28: Chest x-ray this morning reveals improving but persistent interstitial infiltrates. Patient's heart rate has been controlled but this morning running up to 130s. Patient remains in atrial fibrillation. Cardiology has discontinued amiodarone due to patient complaining of nausea, increased Lopressor to 50 mg twice daily and added verapamil 80 mg 3 times daily and ordered for 1 dose of IV Lanoxin. Plan is to discontinue IV Cardizem once rate is controlled. Lasix 20 mg daily has been added. Patient has been afebrile, blood pressure 160/95, pulse ox 94% on room air. Anticipate possible discharge tomorrow. 08/29: Patient has been afebrile, heart rate this morning running between 110 and 120, blood pressure 102/68, pulse ox 96% on room air. Repeat CBC and BMP unremarkable. Cardiology has ordered 1 dose of digoxin 125 g IV push this morning and verapamil increased to [address] MAKENNA Yeh and he has recommended digoxin 125 g daily, verapamil 80 daily, Lopressor 50 g 3 times daily for home as heart rate is better controlled at the time of our evaluation. Patient remains in atrial fibrillation. Patient denies any new complaints. She states she feels better today. Nausea is resolved. Patient will be discharged home today in stable condition. Discharge diagnoses: 1. New onset atrial fibrillation with RVR, most likely paroxysmal atrial fibrillation. 2. Hypertension. 3. Hyperlipidemia. 4. Hyperglycemia with no previous history of diabetes. Hemoglobin A1c 6.1. 5. Generalized osteoarthritis, stable. 6. Osteoporosis, stable. Discharge plan: home Impression and plan of care have been directed as dictated by the signing physician. Kerry Green nurse practitioner acting as scribe for signing physician. Patient Condition at Discharge: Good Plan - Discharge Summary New Discharge Prescriptions: New Losartan [Cozaar] 25 mg PO DAILY #30 tab Digoxin [Digitek] 125 mcg PO DAILY #30 tab Apixaban [Eliquis] 5 mg PO BID #60 tab Verapamil [Isoptin] 80 mg PO TID #90 tablet Metoprolol Tartrate [Lopressor] 50 mg PO TID #90 tab Omeprazole [PriLOSEC] 20 mg PO AC-BRKFST #30 cap Continue Magnesium 200 mg PO DAILY Cholecalciferol [Vitamin D3 (25 Mcg = 1000 Iu)] 5,000 unit PO DAILY Ascorbic Acid [Vitamin C] 500 mg PO DAILY Multivitamins, Thera [Multivitamin (formulary)] 1 tab PO DAILY Calcium Carb/Vitamin D3/Vit K1 [Citracal Soft Chew] 1 tab PO DAILY Changed Atorvastatin Calcium [Lipitor] 10 mg PO HS #0 Discontinued Aspirin EC [Ecotrin Low Dose] 81 mg PO DAILY Olmesartan Medoxomil 20 mg PO DAILY@1900 Discharge Medication List Ascorbic Acid [Vitamin C] 500 mg PO DAILY 03/14/18 [History] Cholecalciferol [Vitamin D3 (25 Mcg = 1000 Iu)] 5,000 unit PO DAILY 03/14/18 [History] Magnesium 200 mg PO DAILY 03/14/18 [History] Multivitamins, Thera [Multivitamin (formulary)] 1 tab PO DAILY 03/14/18 [History] Calcium Carb/Vitamin D3/Vit K1 [Citracal Soft Chew] 1 tab PO DAILY 08/27/19 [History] Apixaban [Eliquis] 5 mg PO BID #60 tab 08/30/19 [Rx] Atorvastatin Calcium [Lipitor] 10 mg PO HS #0 08/30/19 [Rx] Digoxin [Digitek] 125 mcg PO DAILY #30 tab 08/30/19 [Rx] Losartan [Cozaar] 25 mg PO DAILY #30 tab 08/30/19 [Rx] Metoprolol Tartrate [Lopressor] 50 mg PO TID #90 tab 08/30/19 [Rx] Omeprazole [PriLOSEC] 20 mg PO AC-BRKFST #30 cap 08/30/19 [Rx] Verapamil [Isoptin] 80 mg PO TID #90 tablet 08/30/19 [Rx] Follow up Appointment(s)/Referral(s): Camilo Yeh MD [STAFF PHYSICIAN] - 09/13/19 11:00 am (This appointment may be changed to a telephone appointment. Office will call you if that changes. ) Edvin Stuart MD [Primary Care Provider] - 1 Week (Office will call with follow up appointment. ) Patient Instructions/Handouts: A-fib (Atrial Fibrillation) (DC), Safe Use of Anticoagulants (DC) Activity/Diet/Wound Care/Special Instructions: pts copay for jeovanyadamis is $45 Discharge Disposition: HOME SELF-CARE
== END 2019-08-30 13:02 | disposition home or self-care (01) | DRG 308 ==
LOC: EC 01:55 → 3SCARD 04:04
PROVIDERS: ADMIT Internal Medicine Geriatric Medicine; ATTEND Internal Medicine Geriatric Medicine
DX: I48.0 Paroxysmal atrial fibrillation (principal); I50.33 Acute on chronic diastolic (congestive) heart failure; I11.0 Hypertensive heart disease with heart failure; E78.5 Hyperlipidemia, unspecified; M15.9 Polyosteoarthritis, unspecified; M81.0 Age-related osteoporosis without current pathological fracture; R73.9 Hyperglycemia, unspecified; Z82.3 Family history of stroke; Z79.82 Long term (current) use of aspirin; Z79.01 Long term (current) use of anticoagulants; Z91.09 Other allergy status, other than to drugs and biological substances; Z90.89 Acquired absence of other organs; Z98.51 Tubal ligation status; Z79.899 Other long term (current) drug therapy; Z80.52 Family history of malignant neoplasm of bladder; Z82.49 Family history of ischemic heart disease and other diseases of the circulatory system
CPT/HCPCS: 36415; 71045; 71046; 80048; 80053; 80061; 81001; 83036; 83605; 83735; 83880; 84443; 84484; 85025; 85027; 93005; 93306

== ENCOUNTER → 2019-09-22 | Outpatient (CLI) | payer MEDICARE | END | disposition home or self-care (01) | LOC: LABWHC1 09:40 | PROVIDERS: ATTEND Internal Medicine Clinical Cardiac Electrophysiology | DX: U07.1 COVID-19 (principal) | CPT/HCPCS: 87635 ==

== ENCOUNTER 2019-09-24 05:56 | Day surgery (SDC) | payer MEDICARE ==
[2019-09-21 13:32] VITALS: BMI 26.7
[~2019-09-24 05:56] MED LIST changes: +LACTATED RINGERS 1,000 ML IV SCH; +LIDOCAINE 1% (10MG/ML) FOR IV START INTRADERMA PRN; +SODIUM CHLORIDE 0.9% 1,000 ML IV SCH; -SODIUM CHLORIDE 0.9% 500 ML 500 ML in EMPTY BAG 1 BAG IV PRN; -ZOLEDRONIC ACID 5 MG in SODIUM CHLORIDE 0.9% 100 ML IV NR
[2019-09-24 06:35] VITALS: RESP 16; TEMP 98
[2019-09-24] MEDS ORDERED: SODIUM CHLORIDE 0.9% 1,000 ML IV ONE (06:38)
[2019-09-24] MEDS ORDERED: PROPOFOL 10 MG/ML 20 ML VIAL IV ONE (07:21)
[2019-09-24] MEDS ORDERED: ACETAMINOPHEN TAB 325 MG TAB PO PRN (07:41)
[2019-09-24] MEDS ORDERED: FLECAINIDE 50 MG TAB PO STA (07:41)
--- NOTE | 2019-09-24 08:03 | P.PCN ---
Preoperative Diagnosis: Diagnosis Symptomatic atrial fibrillation, persistent Procedure Successful electrical cardioversion with a 360 J biphasic shock Plan Stop verapamil Restart metoprolol Stop digoxin Increase flecainide 2 100 mg twice daily continue ELIQUIS Continue olmesartan Follow Dr. Narvaez as previously scheduled
[2019-09-24] MEDS ORDERED: METOPROLOL TARTRATE 50 MG TAB PO SCH (09:00)
[2019-09-24 09:09] VITALS: BP 131/77; PULSE 93
== END 2019-09-24 09:06 | disposition home or self-care (01) ==
LOC: CATHEP 05:56
PROVIDERS: ATTEND Internal Medicine Clinical Cardiac Electrophysiology
DX: I48.19 Other persistent atrial fibrillation (principal); I10 Essential (primary) hypertension; I65.23 Occlusion and stenosis of bilateral carotid arteries; E78.5 Hyperlipidemia, unspecified; Z91.09 Other allergy status, other than to drugs and biological substances; Z79.01 Long term (current) use of anticoagulants; Z79.899 Other long term (current) drug therapy
CPT/HCPCS: 92960

== ENCOUNTER 2019-09-25 07:02 | Emergency (ER) | payer MEDICARE ==
[2019-09-25 07:09] VITALS: RESP 18
[2019-09-25] MEDS ORDERED: SODIUM CHLORIDE 0.9% 1,000 ML IV STA (07:31)
[2019-09-25] MEDS ORDERED: fentaNYL (PF) 50 MCG/ML 2 ML AMP IV STA (07:33)
--- NOTE | 2019-09-25 07:35 | ED ---
Dizziness HPI - General Chief Complaint: Dizziness Stated Complaint: light headed Time Seen by Provider: 09/25/19 07:15 Source: patient, RN notes reviewed Mode of arrival: ambulatory Limitations: no limitations - History of Present Illness Initial Comments: This is a 78-year-old female who had a cardioversion performed yesterday states she got up during the middle of night feeling lightheaded dizzy with nausea and dry heaves. States she has some lower chest and upper abdominal pain is almost like pressure. She states she was short of breath especially with the supine position she denies any palpitations however. No fevers chills or sweats. She states the nausea is gone she still has some upper abdominal pain. No palpitations reported no other modifying factors at this time. MD Complaint: dizziness, lightheadedness, other - Related Data Home Medications Medication Instructions Recorded Confirmed Ascorbic Acid [Vitamin C] 500 mg PO DAILY 03/14/18 09/24/19 Cholecalciferol [Vitamin D3 (25 1,000 unit PO DAILY 03/14/18 09/24/19 Mcg = 1000 Iu)] Magnesium 240 mg PO DAILY 03/14/18 09/24/19 Multivitamins, Thera [Multivitamin 1 tab PO DAILY 03/14/18 09/24/19 (formulary)] Calcium Carb/Vitamin D3/Vit K1 1 tab PO DAILY 08/27/19 09/24/19 [Citracal Soft Chew] Metoprolol Tartrate [Lopressor] 50 mg PO BID 09/21/19 09/21/19 Olmesartan [Benicar] 20 mg PO DAILY 09/21/19 09/24/19 Omeprazole [PriLOSEC] 40 mg PO AC-BRKFST 09/21/19 09/24/19 Previous Rx's Medication Instructions Recorded Apixaban [Eliquis] 5 mg PO BID #60 tab 08/30/19 Atorvastatin Calcium [Lipitor] 10 mg PO HS #0 08/30/19 Flecainide [Tambocor] 100 mg PO Q12HR #90 tablet 09/24/19 Allergies Allergy/AdvReac Type Severity Reaction Status Date / Time contact metal agent Allergy Unknown Unknown Verified 09/24/19 06:33 nickel Allergy burning, Verified 09/24/19 06:33 pain Review of Systems ROS Statement: Those systems with pertinent positive or pertinent negative responses have been documented in the HPI. ROS Other: All systems not noted in ROS Statement are negative. Past Medical History Past Medical History: Hyperlipidemia, Hypertension, Osteoarthritis (OA) Additional Past Medical History / Comment(s): OSTEOPOROSIS. History of Any Multi-Drug Resistant Organisms: None Reported Past Surgical History: Orthopedic Surgery, Tonsillectomy, Tubal Ligation Additional Past Surgical History / Comment(s): BILATERAL KNEES. Past Anesthesia/Blood Transfusion Reactions: No Reported Reaction Past Psychological History: No Psychological Hx Reported Smoking Status: Never smoker Past Alcohol Use History: None Reported Past Drug Use History: None Reported General Exam - General Exam Comments Initial Comments: This is a well-developed well-nourished awake alert oriented 3 female Limitations: no limitations General appearance: alert, anxious Head exam: Present: atraumatic, normocephalic, normal inspection Eye exam: Present: normal appearance, PERRL, EOMI. Absent: scleral icterus, conjunctival injection, periorbital swelling ENT exam: Present: normal exam, mucous membranes moist Neck exam: Present: normal inspection, full ROM, other (No stridor JVD or bruit s). Absent: tenderness, meningismus, lymphadenopathy Respiratory exam: Present: normal lung sounds bilaterally. Absent: respiratory distress, wheezes, rales, rhonchi, stridor Cardiovascular Exam: Present: regular rate, normal rhythm, normal heart sounds. Absent: systolic murmur, diastolic murmur, rubs, gallop, clicks GI/Abdominal exam: Present: soft, tenderness (Right upper quadrant and midepigastric tenderness palpation no overt guarding rebound masses or bruits), normal bowel sounds. Absent: distended, guarding, rebound, rigid Rectal exam: Present: deferred Extremities exam: Present: normal inspection, full ROM, normal capillary refill. Absent: tenderness, pedal edema, joint swelling, calf tenderness Back exam: Present: normal inspection Neurological exam: Present: alert, oriented X3, CN II-XII intact Psychiatric exam: Present: normal affect, normal mood Skin exam: Present: warm, dry, intact, normal color. Absent: rash Course Vital Signs 09/25/19 09/25/19 09/25/19 07:05 08:00 09:30 Temperature 97.4 F L Pulse Rate 68 64 65 Respiratory 18 18 18 Rate Blood Pressure 145/87 137/93 111/75 O2 Sat by Pulse 98 98 95 Oximetry EKG Findings - EKG Results: EKG: interpreted by FEDERICO, sinus rhythm (Sinus rhythm 68. CT interval to 10 QRS 102 QT since QTC 436/463 evidence of first-degree AV block) Medical Decision Making - Medical Decision Making The patient showing much improved this time no nausea no chest pain charts breath no other issues. She would like to go home I did discuss the case with her rehabilitator . Patient will be discharged she has missed her stress test appointment she will get rescheduled that. She is to call the office for this. The presentation is consistent with biliary colic though the ultrasound was negative and labs show some mild elevations of the liver enzymes. - Lab Data Result diagrams: 09/25/19 07:40 09/25/19 07:40 Lab Results 09/25/19 09/25/19 09/25/19 Range/Units 07:40 07:40 07:40 WBC 8.0 (3.8-10.6) k/uL RBC 4.57 (3.80-5.40) m/uL Hgb 13.9 (11.4-16.0) gm/dL Hct 43.3 (34.0-46.0) % MCV 94.7 (80.0-100.0) fL MCH 30.4 (25.0-35.0) pg MCHC 32.1 (31.0-37.0) g/dL RDW 14.1 (11.5-15.5) % Plt Count 201 (150-450) k/uL Neutrophils % 83 % Lymphocytes % 10 % Monocytes % 4 % Eosinophils % 2 % Basophils % 1 % Neutrophils # 6.6 (1.3-7.7) k/uL Lymphocytes # 0.8 L (1.0-4.8) k/uL Monocytes # 0.3 (0-1.0) k/uL Eosinophils # 0.2 (0-0.7) k/uL Basophils # 0.0 (0-0.2) k/uL Sodium 135 L (137-145) mmol/L Potassium 4.0 (3.5-5.1) mmol/L Chloride 104 (98-107) mmol/L Carbon Dioxide 22 (22-30) mmol/L Anion Gap 9 mmol/L BUN 13 (7-17) mg/dL Creatinine 0.52 (0.52-1.04) mg/dL Est GFR (CKD-EPI)AfAm >90 (>60 ml/min/1.73 sqM) Est GFR (CKD-EPI)NonAf >90 (>60 ml/min/1.73 sqM) Glucose 170 H (74-99) mg/dL Calcium 8.8 (8.4-10.2) mg/dL Magnesium 1.8 (1.6-2.3) mg/dL Total Bilirubin 1.2 (0.2-1.3) mg/dL AST 118 H (14-36) U/L ALT 123 H (4-34) U/L Alkaline Phosphatase 97 (38-126) U/L Creatine Kinase 24 L (30-135) U/L Troponin I 0.043 H* (0.000-0.034) ng/mL Total Protein 6.3 (6.3-8.2) g/dL Albumin 3.8 (3.5-5.0) g/dL Lipase 71 (23-300) U/L Urine Color Urine Appearance (Clear) Urine pH (5.0-8.0) Ur Specific [place] (1.001-1.035) Urine Protein (Negative) Urine Glucose (UA) (Negative) Urine Ketones (Negative) Urine Blood (Negative) Urine Nitrite (Negative) Urine Bilirubin (Negative) Urine Urobilinogen (<2.0) mg/dL Ur Leukocyte Esterase (Negative) Urine RBC (0-5) /hpf Urine WBC (0-5) /hpf Ur Squamous Epith Cells (0-4) /hpf Amorphous Sediment (None) /hpf Urine Bacteria (None) /hpf Urine Mucus (None) /hpf /10/09 Range/Units 08:25 WBC (3.8-10.6) k/uL RBC (3.80-5.40) m/uL Hgb (11.4-16.0) gm/dL Hct (34.0-46.0) % MCV (80.0-100.0) fL MCH (25.0-35.0) pg MCHC (31.0-37.0) g/dL RDW (11.5-15.5) % Plt Count (150-450) k/uL Neutrophils % % Lymphocytes % % Monocytes % % Eosinophils % % Basophils % % Neutrophils # (1.3-7.7) k/uL Lymphocytes # (1.0-4.8) k/uL Monocytes # (0-1.0) k/uL Eosinophils # (0-0.7) k/uL Basophils # (0-0.2) k/uL Sodium (137-145) mmol/L Potassium (3.5-5.1) mmol/L Chloride (98-107) mmol/L Carbon Dioxide (22-30) mmol/L Anion Gap mmol/L BUN (7-17) mg/dL Creatinine (0.52-1.04) mg/dL Est GFR (CKD-EPI)AfAm (>60 ml/min/1.73 sqM) Est GFR (CKD-EPI)NonAf (>60 ml/min/1.73 sqM) Glucose (74-99) mg/dL Calcium (8.4-10.2) mg/dL Magnesium (1.6-2.3) mg/dL Total Bilirubin (0.2-1.3) mg/dL AST (14-36) U/L ALT (4-34) U/L Alkaline Phosphatase (38-126) U/L Creatine Kinase (30-135) U/L Troponin I (0.000-0.034) ng/mL Total Protein (6.3-8.2) g/dL Albumin (3.5-5.0) g/dL Lipase (23-300) U/L Urine Color Yellow Urine Appearance Cloudy H (Clear) Urine pH 5.5 (5.0-8.0) Ur Specific [place] 1.032 (1.001-1.035) Urine Protein 1+ H (Negative) Urine Glucose (UA) Negative (Negative) Urine Ketones Negative (Negative) Urine Blood Negative (Negative) Urine Nitrite Negative (Negative) Urine Bilirubin Negative (Negative) Urine Urobilinogen 2.0 (<2.0) mg/dL Ur Leukocyte Esterase Negative (Negative) Urine RBC 11 H (0-5) /hpf Urine WBC 3 (0-5) /hpf Ur Squamous Epith Cells 1 (0-4) /hpf Amorphous Sediment Rare H (None) /hpf Urine Bacteria Rare H (None) /hpf Urine Mucus Many H (None) /hpf - Radiology Data Radiology results: report reviewed (I did review the imaging and report no acute findings.), image reviewed Disposition Clinical Impression: Biliary colic, Troponin level elevated, Abdominal pain Disposition: HOME SELF-CARE Condition: Good Instructions (If sedation given, give patient instructions): Abdominal Pain (ED) Additional Instructions: Follow-up with cardiology for a reschedule of the stress test. Otherwise follow-up with her doctor and return if needed Is patient prescribed a controlled substance at d/c from ED?: No Referrals: Edvin Stuart MD [Primary Care Provider] - 1-2 days
[2019-09-25 07:58] LABS: Basophils % (A) 1 %; Eosinophils # (A) 0.2 k/uL (0-0.7); Eosinophils % (A) 2 %; HCT 43.3 % (34.0-46.0); HGB 13.9 gm/dL (11.4-16.0); Lymphocytes # (A) 0.8 k/uL (1.0-4.8); Lymphocytes % (A) 10 %; MCH 30.4 pg (25.0-35.0); MCHC 32.1 g/dL (31.0-37.0); MCV 94.7 fL (80.0-100.0); Mean Platelet Volume 7.9; Monocytes # (A) 0.3 k/uL (0-1.0); Monocytes % (A) 4 %; Neutrophils # (A) 6.6 k/uL (1.3-7.7); Neutrophils % (A) 83 %; Platelet Count 201 k/uL (150-450); RBC 4.57 m/uL (3.80-5.40); RDW 14.1 % (11.5-15.5)
[2019-09-25 08:03] LABS: ALT 123 U/L (4-34); AST 118 U/L (14-36); African American GFR (CKD) >90 (>60 ml/min/1.73 sqM); Albumin 3.8 g/dL (3.5-5.0); Alkaline Phosphatase 97 U/L (38-126); Anion Gap 9 mmol/L; Blood Urea Nitrogen 13 mg/dL (7-17); Calcium 8.8 mg/dL (8.4-10.2); Carbon Dioxide 22 mmol/L (22-30); Chloride 104 mmol/L (98-107); Creatine Kinase 24 U/L (30-135); Glucose 170 mg/dL (74-99); Magnesium 1.8 mg/dL (1.6-2.3); Non-African American GFR(CKD) >90 (>60 ml/min/1.73 sqM); Sodium 135 mmol/L (137-145); Total Bilirubin 1.2 mg/dL (0.2-1.3); Total Protein 6.3 g/dL (6.3-8.2)
[2019-09-25] MEDS ORDERED: ONDANSETRON 4 MG/2 ML VIAL IVP STA (08:28)
--- NOTE | 2019-09-25 08:34 | XR ---
EXAMINATION TYPE: XR KUB DATE OF EXAM: 09/25/2019 COMPARISON: NONE HISTORY: Pain TECHNIQUE: Single supine KUB image of the abdomen is obtained FINDINGS: Small bowel demonstrates no evidence for dilatation or air fluid levels. Gas and fecal material is seen in non-distended colon. No convincing evidence for pneumoperitoneum. No unusual calcifications. The lung bases are clear. The osseous structures are intact. IMPRESSION: 1. Overall nonobstructive bowel gas pattern.
--- NOTE | 2019-09-25 08:34 | XR ---
EXAMINATION TYPE: XR chest 2V DATE OF EXAM: 09/25/2019 COMPARISON: August 29, 2019 HISTORY: Shortness of breath TECHNIQUE: Frontal and lateral views of the chest are obtained. FINDINGS: Scattered senescent parenchymal changes noted. Hyperinflation compatible with COPD. There is cardiomegaly with pulmonary venous congestion and interstitial edema suspected. Underlying i nfiltrates of other etiology not excluded. Correlate clinically and progress studies are advised. Mediastinal structures are stable and grossly unremarkable. No evidence for hilar prominence. Degenerative changes dorsal spine. IMPRESSION: 1. There is cardiomegaly with pulmonary venous congestion and interstitial edema suspected. Underlyin g infiltrates of other etiology not excluded. Correlate clinically and progress studies are advised.
[2019-09-25 08:55] LABS: Amorphous Sediment,Urine Rare /hpf; Appearance,Urine Cloudy (Clear); Bacteria,Urine Rare /hpf; Bilirubin,Urine Negative (Negative); Blood,Urine Negative (Negative); Color,Urine Yellow; Glucose,Urine (UA) Negative (Negative); Ketones,Urine Negative (Negative); Leukocyte Esterase,Urine Negative (Negative); Mucus,Urine Many /hpf; Nitrite,Urine Negative (Negative); PH, Urine 5.5 (5.0-8.0); Protein,Urine 1+ (Negative); RBC,Urine 11 /hpf (0-5); Specific Gravity,Urine 1.032 (1.001-1.035); Squamous Epithelial Cell,Urine 1 /hpf (0-4); WBC,Urine 3 /hpf (0-5)
--- NOTE | 2019-09-25 09:24 | US ---
EXAMINATION TYPE: US gallbladder DATE OF EXAM: 09/25/2019 COMPARISON: NONE CLINICAL HISTORY: Abdominal pain. EXAM MEASUREMENTS: Liver Length: 14.8 cm Gallbladder Wall: 0.3 cm CBD: 0.3 cm Right Kidney: 9.4 x 3.7 x 4.6 cm Pancreas: partially obscured by bowel gas, portions visualized wnl Liver: cyst noted measuring 1.5 x 1.1 x 1.4cm Gallbladder: wnl Evidence for sonographic Wang's sign: no CBD: wnl Right Kidney: wnl IMPRESSION: Simple hepatic cyst. Otherwise unremarkable study.
[2019-09-25 10:52] VITALS: BP 131/97; PULSE 67; TEMP 98.2
== END 2019-09-25 10:51 | disposition home or self-care (01) ==
LOC: EC 07:02
DX: K80.50 Calculus of bile duct without cholangitis or cholecystitis without obstruction (principal); R79.89 Other specified abnormal findings of blood chemistry; I10 Essential (primary) hypertension; Z79.899 Other long term (current) drug therapy; Z91.048 Other nonmedicinal substance allergy status
CPT/HCPCS: 36415; 93005; 80053; 82550; 83690; 83735; 84484; 85025; 81001; 71046; 74018; 76705; 99285; 96374; 96375; 96361 ×2; J2405; J3010

== ENCOUNTER → 2020-02-06 | Outpatient (CLI) | payer MEDICARE ==
[2020-02-06 21:31] LABS: African American GFR (CKD) 70.5 (60.0-200.0); Anion Gap 9.6 mmol/L (4.00-12.00); BUN/Creat Ratio 22.22 Ratio (12.00-20.00); Calcium 9.2 mg/dL (8.7-10.3); Carbon Dioxide 31.4 mmol/L (21.6-31.8); Non-African American GFR(CKD) 60.8 (60.0-200.0); Potassium 4.4 mmol/L (3.5-5.5)
== END | disposition home or self-care (01) ==
LOC: LABWHC1 10:53
PROVIDERS: ATTEND Physician Assistant
DX: I10 Essential (primary) hypertension (principal)
CPT/HCPCS: 36415; 80048; 83735

== ENCOUNTER → 2020-09-15 | Outpatient (CLI) | payer MEDICARE ==
--- NOTE | 2020-09-15 11:44 | BD ---
EXAMINATION TYPE: Axial Bone Density DATE OF EXAM: 09/15/2020 COMPARISON: 01.26.2018 CLINICAL HISTORY: 79 YR OLD FEMALE.......ICD-10 CODE: M81.0 OSTEOPOROSIS Height: 61.8 Weight: 169 FRAX RISK QUESTIONS: NOTHING TO NOTE HERE RISK FACTORS HISTORY OF: History of Wrist Fracture: HX OF LT WRIST FX YOUNG WOMAN Postmenopausal woman: YES, AT ABOUT AGE 50 Lost more than 2 inches in height since high school: YES Hyperparathyroidism: NO Adrenal Insufficiency: NO MEDICATIONS: Osteoporosis Medications: YES, BONIVA IN THE PAST Additional Medications: BP MEDS, STATIN FOR CHOLESTEROL, VIT D AND CALCIUM Additional History: HYPERTENSION, CHOLESTEROL, ARTHRITIS RA EXAM MEASUREMENTS: Bone mineral densitometry was performed using the [employer] System. Bone mineral density as measured about the Lumbar spine is: ----- L1-L4(G/cm2): 0.969 T Score Values are as follows: ----- L1: -2.4 ----- L2: -3.0 ----- L3: -1.5 ----- L4: -0.7 ----- L1-L4: -1.8 Bone mineral density has: Increased 3.2% since study of: 01.26.2018 Bone mineral density about the R hip (g/cm2): 0.930 Bone mineral density about the L hip (g/cm2): 0.904 T Score values are as follows: -----R Neck: -1.5 -----L Neck: -1.9 -----R Total: -0.6 -----L Total: -0.8 Bone mineral density has: Increased 1.2% since study of: 01.26.2018 FRAX%s: THERE IS A 26.9% CHANCE FOR A MAJOR OSTEOPOROTIC FX AND A 7.5% FOR HIP.......PROBABILITY F OR FX IN 10 YRS TIME IMPRESSION: Osteopenia NOTE: T-SCORE=SD OF THE YOUNG ADULT MEAN.
--- NOTE | 2020-09-15 13:24 | MM ---
Reason for exam: screening (asymptomatic). Last mammogram was performed 1 year and 8 months ago. History: Patient is postmenopausal. Family history of premenopausal breast cancer in sister at age 45 and breast cancer in paternal aunt at age 70. Benign excisional biopsy of the right breast, 1989. Physical Findings: A clinical breast exam by your physician is recommended on an annual basis and results should be correlated with mammographic findings. MG 3D Screening Mammo W/Cad Bilateral CC and MLO view(s) were taken. Prior study comparison: January 29, 2019, bilateral MG 3d screening mammo w/cad. January 26, 2018, bilateral MG 3d screening mammo w/cad. There are scattered fibroglandular densities. There are benign appearing round dystrophic calcifications in the right breast. There is no discrete abnormality. ASSESSMENT: Benign, BI-RAD 2 RECOMMENDATION: Routine screening mammogram of both breasts in 1 year.
== END | disposition home or self-care (01) ==
LOC: RADMAMWWP 08:09
PROVIDERS: ATTEND Internal Medicine Geriatric Medicine
DX: Z12.31 Encounter for screening mammogram for malignant neoplasm of breast (principal); M85.80 Other specified disorders of bone density and structure, unspecified site; M81.0 Age-related osteoporosis without current pathological fracture
CPT/HCPCS: 77063; 77067; 77080

== ENCOUNTER → 2020-10-24 | Outpatient (CLI) | payer MEDICARE ==
--- NOTE | 2020-10-24 13:33 | CT ---
EXAMINATION TYPE: CT abdomen pelvis wo con DATE OF EXAM: 10/24/2020 HISTORY: Low back pain, microhematuria for [address] DLP: 489.60 mGycm. Automated Exposure Control for Dose Reduction was Utilized. TECHNIQUE: CT scan of the abdomen and pelvis is performed without oral or IV contrast. COMPARISON: CT abdomen March 24, 2018 FINDINGS: Within the limitations of a non-contrast study, the following observations are made. LUNG BASES: There is 10 mm calcified nodule or granuloma left lung base on axial image 11 redemonstra aj. LIVER/GB: Stable 1.6 cm hypodense lesion consistent with thin-walled cyst in the liver axial image 14 . PANCREAS: Mild atrophy level of pancreatic head redemonstrated. SPLEEN: No significant abnormality is seen. ADRENALS: No significant abnormality is seen. KIDNEYS: No renal stones or hydronephrosis is seen bilaterally. BOWEL: Oral contrast reaches level of the distal right colon. No suspicious small or large bowel dila tation. Diverticula in the sigmoid colon. No convincing CT evidence for acute diverticulitis. GENITAL ORGANS: Anteverted normal-sized uterus. No adnexal masses. Ovaries symmetric and within siddharth l limits in size. LYMPH NODES: No greater than 1cm abdominal or pelvic lymph nodes are appreciated. OSSEOUS STRUCTURES: Vacuum disc phenomenon lumbosacral junction. Facet arthropathy lower lumbar level s. Moderate axial joint space both hips. OTHER: Mild/moderate calcified plaque of the aorta extends into branch vessels. IMPRESSION: No renal stones or hydronephrosis is seen bilaterally.Source of hematuria not identified.
== END | disposition home or self-care (01) ==
LOC: RADCTMAIN 09:22
PROVIDERS: ATTEND Internal Medicine Geriatric Medicine
DX: M54.5 Low back pain (principal); R31.29 Other microscopic hematuria
CPT/HCPCS: 36415; 74176; 82565; 84520

== ENCOUNTER 2020-12-30 21:01 | Inpatient (IN) | payer MEDICARE ==
[2020-12-30] MEDS ORDERED: SODIUM CHLORIDE 0.9% 1,000 ML IV STA ×2 (21:15→23:29)
[2020-12-30] MEDS ORDERED: DILTIAZEM DRIP BOLUS FROM BAG 1 MG SOLN IV ONE ×2 (21:15→23:23)
[2020-12-30] MEDS: DILTIAZEM 125 MG in SODIUM CHLORIDE 0.9% 100 ML IV SCH (21:33)
--- NOTE | 2020-12-30 22:04 | ED ---
Arrhythmia/Palpitations HPI - General Chief Complaint: Arrhythmia/Palpitations Stated Complaint: A Fib Time Seen by Provider: 12/30/20 21:15 Source: patient Mode of arrival: wheelchair Limitations: no limitations - Related Data Home Medications Medication Instructions Recorded Confirmed Multivitamins, Thera [Multivitamin 1 tab PO DAILY 03/14/18 12/30/20 (formulary)] Calcium Carb/Vitamin D3/Vit K1 1 tab PO DAILY 08/27/19 12/30/20 [Citracal-D3 500 mg Soft Chew] Olmesartan [Benicar] 20 mg PO BID 09/21/19 12/30/20 Omeprazole [PriLOSEC] 40 mg PO AC-BRKFST 09/21/19 12/30/20 Cholecalciferol (Vitamin D3) 125 mcg PO DAILY 12/30/20 12/30/20 [Vitamin D3 (125 MCG = 5,000 IU)] Flecainide [Tambocor] 25 mg PO BID 12/30/20 12/30/20 Magnesium 250 mg PO DAILY 12/30/20 12/30/20 Metoprolol Tartrate [Lopressor] 12.5 mg PO BID 12/30/20 12/30/20 Rosuvastatin [Crestor] 10 mg PO DAILY 12/30/20 12/30/20 Triamterene-Hctz 37.5-25Mg 1 cap PO DAILY 12/30/20 12/30/20 [Dyazide 37.5-25 Capsule] Previous Rx's Medication Instructions Recorded Apixaban [Eliquis] 5 mg PO BID #60 tab 08/30/19 Allergies Allergy/AdvReac Type Severity Reaction Status Date / Time contact metal agent Allergy Unknown Unknown Verified 12/30/20 21:09 nickel Allergy burning, Verified 12/30/20 21:09 pain Review of Systems ROS Statement: Those systems with pertinent positive or pertinent negative responses have been documented in the HPI. ROS Other: All systems not noted in ROS Statement are negative. Past Medical History Past Medical History: Hyperlipidemia, Hypertension, Osteoarthritis (OA) Additional Past Medical History / Comment(s): OSTEOPOROSIS. History of Any Multi-Drug Resistant Organisms: None Reported Past Surgical History: Orthopedic Surgery, Tonsillectomy, Tubal Ligation Additional Past Surgical History / Comment(s): BILATERAL KNEES. Past Anesthesia/Blood Transfusion Reactions: No Reported Reaction Past Psychological History: No Psychological Hx Reported Smoking Status: Never smoker Past Alcohol Use History: None Reported Past Drug Use History: None Reported - Past Family History Father Family Medical History: Cancer, CVA/TIA Additional Family Medical History / Comment(s): Father at age 80 from bladder cancer, with history of CVA. Mother Family Medical History: Myocardial Infarction ([place]) Additional Family Medical History / Comment(s): Mother at age 42 from a myocardial infarction. Brother(s) Family Medical History: Blood Disorder, CVA/TIA Additional Family Medical History / Comment(s): Patient was 4 brothers and one h as history of factor V, 3 have had strokes. Patient 6 sisters with no major medical problems. Patient has one son 49 years of age with no major medical problems. Patient also has one adopted daughter. General Exam Limitations: no limitations Course Vital Signs 12/30/20 12/30/20 12/30/20 21:05 21:40 21:41 Temperature 98.7 F Pulse Rate 139 H 117 H Pulse Rate [ 152 H [employer] ] Respiratory 18 18 Rate Blood Pressure 127/80 113/89 O2 Sat by Pulse 99 93 L Oximetry 12/30/20 12/30/20 22:31 23:10 Temperature Pulse Rate 114 H 144 H Pulse Rate [ [employer] ] Respiratory 20 20 Rate Blood Pressure 109/62 O2 Sat by Pulse 96 96 Oximetry EKG Findings - EKG Comments: EKG Findings:: EKG shows A. fib with RVR 162 QRS 80 QTC 489 Medical Decision Making - Lab Data Result diagrams: 12/30/20 21:24 12/30/20 21:24 Lab Results 12/30/20 12/30/20 12/30/20 Range/Units 21:24 21:24 21:24 WBC 15.7 H (3.8-10.6) k/uL RBC 4.08 (3.80-5.40) m/uL Hgb 13.1 (11.4-16.0) gm/dL Hct 38.2 (34.0-46.0) % MCV 93.5 (80.0-100.0) fL MCH 32.0 (25.0-35.0) pg MCHC 34.2 (31.0-37.0) g/dL RDW 13.5 (11.5-15.5) % Plt Count 204 (150-450) k/uL MPV 8.2 Neutrophils % 89 % Lymphocytes % 7 % Monocytes % 3 % Eosinophils % 0 % Basophils % 0 % Neutrophils # 13.9 H (1.3-7.7) k/uL Lymphocytes # 1.1 (1.0-4.8) k/uL Monocytes # 0.5 (0-1.0) k/uL Eosinophils # 0.0 (0-0.7) k/uL Basophils # 0.0 (0-0.2) k/uL PT 11.5 (9.0-12.0) sec INR 1.1 (<1.2) APTT 23.0 (22.0-30.0) sec Sodium 132 L (137-145) mmol/L Potassium 4.3 (3.5-5.1) mmol/L Chloride 102 (98-107) mmol/L Carbon Dioxide 21 L (22-30) mmol/L Anion Gap 9 mmol/L BUN 23 H (7-17) mg/dL Creatinine 0.89 (0.52-1.04) mg/dL Est GFR (CKD-EPI)AfAm 71 (>60 ml/min/1.73 sqM) Est GFR (CKD-EPI)NonAf 61 (>60 ml/min/1.73 sqM) Glucose 171 H (74-99) mg/dL Plasma Lactic Acid Devyn (0.7-2.0) mmol/L Calcium 9.2 (8.4-10.2) mg/dL Phosphorus 3.8 (2.5-4.5) mg/dL Magnesium 2.0 (1.6-2.3) mg/dL Total Bilirubin 1.3 (0.2-1.3) mg/dL AST 24 (14-36) U/L ALT 25 (4-34) U/L Alkaline Phosphatase 71 (38-126) U/L Creatine Kinase <20 L (30-135) U/L Troponin I (0.000-0.034) ng/mL NT-Pro-B Natriuret Pep pg/mL Total Protein 6.4 (6.3-8.2) g/dL Albumin 3.9 (3.5-5.0) g/dL TSH 1.250 (0.465-4.680) mIU/L 12/30/20 12/30/20 12/30/20 Range/Units 21:24 21:24 21:24 WBC (3.8-10.6) k/uL RBC (3.80-5.40) m/uL Hgb (11.4-16.0) gm/dL Hct (34.0-46.0) % MCV (80.0-100.0) fL MCH (25.0-35.0) pg MCHC (31.0-37.0) g/dL RDW (11.5-15.5) % Plt Count (150-450) k/uL MPV Neutrophils % % Lymphocytes % % Monocytes % % Eosinophils % % Basophils % % Neutrophils # (1.3-7.7) k/uL Lymphocytes # (1.0-4.8) k/uL Monocytes # (0-1.0) k/uL Eosinophils # (0-0.7) k/uL Basophils # (0-0.2) k/uL PT (9.0-12.0) sec INR (<1.2) APTT (22.0-30.0) sec Sodium (137-145) mmol/L Potassium (3.5-5.1) mmol/L Chloride (98-107) mmol/L Carbon Dioxide (22-30) mmol/L Anion Gap mmol/L BUN (7-17) mg/dL Creatinine (0.52-1.04) mg/dL Est GFR (CKD-EPI)AfAm (>60 ml/min/1.73 sqM) Est GFR (CKD-EPI)NonAf (>60 ml/min/1.73 sqM) Glucose (74-99) mg/dL Plasma Lactic Acid Devyn 1.3 (0.7-2.0) mmol/L Calcium (8.4-10.2) mg/dL Phosphorus (2.5-4.5) mg/dL Magnesium (1.6-2.3) mg/dL Total Bilirubin (0.2-1.3) mg/dL AST (14-36) U/L ALT (4-34) U/L Alkaline Phosphatase (38-126) U/L Creatine Kinase (30-135) U/L Troponin I <0.012 (0.000-0.034) ng/mL NT-Pro-B Natriuret Pep 4300 pg/mL Total Protein (6.3-8.2) g/dL Albumin (3.5-5.0) g/dL TSH (0.465-4.680) mIU/L Disposition Clinical Impression: Atrial fibrillation, Atrial fibrillation with RVR Disposition: ADMITTED IP TO THIS HOSP Condition: Good Is patient prescribed a controlled substance at d/c from ED?: No Referrals: Edvin Stuart MD [Primary Care Provider] - 1-2 days
[2020-12-30 22:12] LABS: Basophils % (A) 0 %; Eosinophils % (A) 0 %; HCT 38.2 % (34.0-46.0); HGB 13.1 gm/dL (11.4-16.0); Lymphocytes # (A) 1.1 k/uL (1.0-4.8); Lymphocytes % (A) 7 %; MCHC 34.2 g/dL (31.0-37.0); MCV 93.5 fL (80.0-100.0); Mean Platelet Volume 8.2; Monocytes # (A) 0.5 k/uL (0-1.0); Monocytes % (A) 3 %; Neutrophils # (A) 13.9 k/uL (1.3-7.7); Neutrophils % (A) 89 %; Platelet Count 204 k/uL (150-450); RBC 4.08 m/uL (3.80-5.40); RDW 13.5 % (11.5-15.5); WBC 15.7 k/uL (3.8-10.6)
[2020-12-30 22:18] LABS: ALT 25 U/L (4-34); AST 24 U/L (14-36); African American GFR (CKD) 71 (>60 ml/min/1.73 sqM); Albumin 3.9 g/dL (3.5-5.0); Alkaline Phosphatase 71 U/L (38-126); Anion Gap 9 mmol/L; Blood Urea Nitrogen 23 mg/dL (7-17); Calcium 9.2 mg/dL (8.4-10.2); Carbon Dioxide 21 mmol/L (22-30); Chloride 102 mmol/L (98-107); Creatine Kinase <20 U/L (30-135); Glucose 171 mg/dL (74-99); Non-African American GFR(CKD) 61 (>60 ml/min/1.73 sqM); Phosphorus 3.8 mg/dL (2.5-4.5); Potassium 4.3 mmol/L (3.5-5.1); Sodium 132 mmol/L (137-145); Total Bilirubin 1.3 mg/dL (0.2-1.3); Total Protein 6.4 g/dL (6.3-8.2)
[2020-12-30 22:23] LABS: INR 1.1 (<1.2); Prothrombin Time 11.5 sec (9.0-12.0)
[2020-12-30] MEDS ORDERED: METOPROLOL TARTRATE 5 MG/5 ML VIAL IVP STA (23:22)
[2020-12-30] MEDS ORDERED: SODIUM CHLORIDE 0.9% 500 ML 500 ML IV STA (23:29)
[2020-12-30] MEDS ORDERED: MORPHINE SULFATE 4 MG/ML SYRINGE IV PRN (23:30)
[2020-12-30] MEDS ORDERED: NITROGLYCERIN SL TABS 0.4 MG TAB SUBLINGUAL PRN (23:30)
[2020-12-30] MEDS ORDERED: ASPIRIN 81 MG PO STA (23:30)
--- NOTE | 2020-12-31 03:59 | XR ---
EXAMINATION TYPE: XR chest 2V DATE OF EXAM: 12/30/2020 COMPARISON: 09/25/2019 HISTORY: Short of breath TECHNIQUE: 2 views FINDINGS: There is coarse interstitial infiltrate throughout the lungs. Heart size is top normal. The re is no pleural effusion. There are no hilar masses. Mediastinum is normal. IMPRESSION: Coarse interstitial density consistent with pulmonary fibrosis without change compared to old exam. No heart failure seen.
[2020-12-31 04:41] LABS: Appearance,Urine Cloudy (Clear); Bilirubin,Urine Negative (Negative); Blood,Urine Negative (Negative); Color,Urine Light Yellow; Glucose,Urine (UA) Negative (Negative); Hyaline Casts,Urine 1 /lpf (0-2); Ketones,Urine Negative (Negative); Leukocyte Esterase,Urine Moderate (Negative); Mucus,Urine Rare /hpf; Nitrite,Urine Negative (Negative); Protein,Urine Negative (Negative); RBC,Urine 1 /hpf (0-5); Specific Gravity,Urine 1.009 (1.001-1.035); Squamous Epithelial Cell,Urine 1 /hpf (0-4); Urobilinogen,Urine <2.0 mg/dL (<2.0); WBC,Urine 6 /hpf (0-5)
[2020-12-31] MEDS: PANTOPRAZOLE 40 MG TABLET PO SCH (06:33)
[2020-12-31] MEDS: CHOLECALCIFEROL 25 MCG (1000 IU) TABLET PO SCH (07:55)
[2020-12-31] MEDS: ATORVASTATIN 20 MG TAB PO SCH (07:55)
[2020-12-31] MEDS: CALCIUM CARB-VIT D 500 MG-5 MCG TAB PO SCH (07:55)
[2020-12-31] MEDS: MAGNESIUM OXIDE 400 MG TAB PO SCH (07:55)
[2020-12-31] MEDS: LOSARTAN 25 MG TAB PO SCH ×2 (07:56→21:22)
[2020-12-31] MEDS: FLECAINIDE 50 MG TAB PO SCH ×2 (07:56→21:25)
[2020-12-31] MEDS: MULTIVITAMINS, THERA 1 EACH TAB PO SCH (07:56)
[2020-12-31] MEDS: APIXABAN 5 MG TAB PO SCH ×2 (07:56→21:22)
[2020-12-31] MEDS ORDERED: METOPROLOL TARTRATE 25 MG TAB PO SCH (09:00)
[2020-12-31] MEDS ORDERED: METOPROLOL TARTRATE 12.5 MG TAB PO SCH (09:00)
[2020-12-31] MEDS ORDERED: ASPIRIN 325 MG TAB PO SCH (09:00)
[2020-12-31] MEDS ORDERED: METOPROLOL TARTRATE 25 MG TAB PO STA (09:28)
[2020-12-31 10:20] LABS: Chol/HDL Ratio 4.15
--- NOTE | 2020-12-31 11:01 | P.CRDCN ---
History of Present Illness Consult date: 12/31/20 History of present illness: HISTORY OF PRESENT ILLNESS: This is a 80-year-old female with a past medical history significant for paroxysmal atrial fibrillation, underlying sick sinus syndrome, hypertension, and hyperlipidemia. Patient follows in the office with Dr. Narvaez. We have been asked to see the patient in consultation for A. jaxon with RVR. Patient examined at the bedside. Patient states she was seen in the office on 12/24/2020. Meri ent was found to be tachypneic atrial fibrillation at that time. The patient does have a history of a cardioversion in September 2019. Dr. Narvaez did schedule the patient for an atrial ablation on 01/27/2021. The patient states her shortness of breath and palpitations got worse over the past couple days so she came to the emergency room for further evaluation. The patient was started on a Cardizem drip at 10 mg an hour. Telemetry reviewed revealing atrial fibrillation with a heart rate between 100-120. EKG reveals atrial fibrillation with RVR Chest xray coarse interstitial density consistent with pulmonary fibrosis without change compared to old exam. No heart failure seen. Laboratory data: WBC 15.7. Hemoglobin 13.1. Platelet count 204. Sodium 132. Potassium 4.3. BUN 23. Creatinine 0.89. Lactic acid 1.3. TSH 1.250. Troponin negative 3. Current home cardiac medications include Dyazide 37.5-25mg daily, Crestor 10 mg daily, metoprolol tartrate 12.5 mg twice a day, Olmesartan 20mg BID, flecainide 25 mg twice a day, and Eliquis 5 mg twice a day Most recent echocardiogram obtained in August 2019 reveals ejection fraction 55- 60%. Mild mitral regurgitation. Mild tricuspid regurgitation. Mild pulmonary hypertension. Patient underwent Lexiscan stress test in September 2019 which was negative for reversible ischemia REVIEW OF SYSTEMS: At the time of my exam: CONSTITUTIONAL: Denies fever or chills. HEENT: Denies blurred vision, vision changes, or eye pain. Denies hemoptysis CARDIOVASCULAR: Denies chest pain. Denies orthopnea. Denies PND. Denies palpitations RESPIRATORY: Denies shortness of breath. GASTROINTESTINAL: Denies abdominal pain. Denies nausea or vomiting. HEMATOLOGIC: Denies bleeding disorders. GENITOURINARY: Denies any blood in urine. SKIN: Denies pruitis. Denies rash. PHYSICAL EXAM: VITAL SIGNS: Reviewed. GENERAL: Well-developed in no acute distress. HEENT: Head is normocephalic. Pupils are equal, round. Sclerae anicteric. Mucous membranes of the mouth are moist. Neck supple. No JVD or thyromegaly LUNGS: Respirations even and unlabored. Lungs essentially clear to auscultation bilaterally. HEART: Tachycardic. Irregular rate and rhythm. S1 and S2 heard. ABDOMEN: Soft. Nondistended. Nontender. EXTREMITIES: Normal range of motion. No clubbing or cyanosis. Peripheral pulses intact. No lower extremity edema NEUROLOGIC: Awake and alert. Oriented x 3. ASSESSMENT: Palpitations Paroxysmal atrial fibrillation with RVR History of sick sinus syndrome Hypertension Hyperlipidemia History of cardioversion September 2019 PLAN: Obtain 2-D echo to assess cardiac structure and function Increase metoprolol to 50 mg in the morning and 25 mg at night Continue current dose of flecainide. Do not increase at this time Decrease Cardizem drip to 5mg and attempt to wean off today Continue anticoagulation with Eliquis Continue to monitor monitoring Case discussed with Dr. Narvaez. We will continue with rate control measures at this time. No plans for cardioversion. Patient is scheduled for A. fib ablation on 01/27/2021 Nurse practitioner note has been reviewed by physician. Signing provider agrees with the documented findings, assessment, and plan of care. Past Medical History Past Medical History: Atrial Fibrillation, Hyperlipidemia, Hypertension, Osteoarthritis (OA) Additional Past Medical History / Comment(s): OSTEOPOROSIS. History of Any Multi-Drug Resistant Organisms: None Reported Past Surgical History: Orthopedic Surgery, Tonsillectomy, Tubal Ligation Additional Past Surgical History / Comment(s): BILATERAL KNEES. Past Anesthesia/Blood Transfusion Reactions: No Reported Reaction Past Psychological History: No Psychological Hx Reported Smoking Status: Never smoker Past Alcohol Use History: None Reported Past Drug Use History: None Reported - Past Family History Father Family Medical History: Cancer, CVA/TIA Additional Family Medical History / Comment(s): Father at age 80 from bladder cancer, with history of CVA. Mother Family Medical History: Myocardial Infarction ([place]) Additional Family Medical History / Comment(s): Mother at age 42 from a myocardial infarction. Brother(s) Family Medical History: Blood Disorder, CVA/TIA Additional Family Medical History / Comment(s): Patient was 4 brothers and one has history of factor V, 3 have had strokes. Patient 6 sisters with no major medical problems. Patient has one son 49 years of age with no major medical problems. Patient also has one adopted daughter. Medications and Allergies Home Medications Medication Instructions Recorded Confirmed Type Multivitamins, Thera [Multivitamin 1 tab PO DAILY 03/14/18 12/30/20 History (formulary)] Calcium Carb/Vitamin D3/Vit K1 1 tab PO DAILY 08/27/19 12/30/20 History [Citracal-D3 500 mg Soft Chew] Apixaban [Eliquis] 5 mg PO BID #60 tab 08/30/19 12/30/20 Rx Olmesartan [Benicar] 20 mg PO BID 09/21/19 12/30/20 History Omeprazole [PriLOSEC] 40 mg PO AC-BRKFST 09/21/19 12/30/20 History Cholecalciferol (Vitamin D3) 125 mcg PO DAILY 12/30/20 12/30/20 History [Vitamin D3 (125 MCG = 5,000 IU)] Flecainide [Tambocor] 25 mg PO BID 12/30/20 12/30/20 History Magnesium 250 mg PO DAILY 12/30/20 12/30/20 History Metoprolol Tartrate [Lopressor] 12.5 mg PO BID 12/30/20 12/30/20 History Rosuvastatin [Crestor] 10 mg PO DAILY 12/30/20 12/30/20 History Triamterene-Hctz 37.5-25Mg 1 cap PO DAILY 12/30/20 12/30/20 History [Dyazide 37.5-25 Capsule] Allergies Allergy/AdvReac Type Severity Reaction Status Date / Time contact metal agent Allergy Unknown Unknown Verified 12/30/20 21:09 nickel Allergy burning, Verified 12/30/20 21:09 pain Physical Exam Vitals: Vital Signs Temp Pulse Pulse Resp BP BP Pulse Ox 12/31/20 08:00 85 18 12/31/20 07:53 97.7 F 85 18 107/67 98 12/31/20 04:00 120 H 18 112/83 99 12/31/20 00:59 98.0 F 145 H 18 139/88 98 12/31/20 00:13 116 H 16 95/76 90 L 12/31/20 00:01 124 H 16 99/67 93 L 12/30/20 23:45 118 H 16 113/72 93 L 12/30/20 23:34 125 H 16 90/71 93 L 12/30/20 23:10 144 H 20 109/62 96 12/30/20 22:31 114 H 20 96 12/30/20 21:41 117 H 18 113/89 93 L 12/30/20 21:40 152 H 12/30/20 21:05 98.7 F 139 H 18 127/80 99 Intake and Output 12/30/20 12/31/20 12/31/20 22:59 06:59 14:59 Intake Total 8.083 Balance 8.083 Intake: Intake, IV Titration 8.083 Amount Diltiazem 125 mg In 8.083 Sodium Chloride 0.9% 100 ml @ 5 MG/HR 5 mls/hr IV .Q24H [facility] Rx#:[id number] Other: # Voids 1 1 Weight 70.307 kg 74.9 kg Results 12/30/20 21:24 12/30/20 21:24 Cardiac Enzymes 12/30/20 12/30/20 12/31/20 Range/Units 21:24 21:24 00:48 AST 24 (14-36) U/L Troponin I <0.012 0.013 (0.000-0.034) ng/mL 12/31/20 Range/Units 03:46 AST (14-36) U/L Troponin I 0.019 (0.000-0.034) ng/mL Coagulation 12/30/20 Range/Units 21:24 PT 11.5 (9.0-12.0) sec APTT 23.0 (22.0-30.0) sec Lipids 12/31/20 Range/Units 03:46 Triglycerides 130.0 (0.0-149.0) mg/dL Cholesterol 170 (0-200) mg/dL HDL Cholesterol 41.0 (40.0-60.0) mg/dL Cholesterol/HDL Ratio 4.15 CBC 12/30/20 Range/Units 21:24 WBC 15.7 H (3.8-10.6) k/uL RBC 4.08 (3.80-5.40) m/uL Hgb 13.1 (11.4-16.0) gm/dL Hct 38.2 (34.0-46.0) % Plt Count 204 (150-450) k/uL Comprehensive Metabolic Panel 12/30/20 Range/Units 21:24 Sodium 132 L (137-145) mmol/L Potassium 4.3 (3.5-5.1) mmol/L Chloride 102 (98-107) mmol/L Carbon Dioxide 21 L (22-30) mmol/L BUN 23 H (7-17) mg/dL Creatinine 0.89 (0.52-1.04) mg/dL Glucose 171 H (74-99) mg/dL Calcium 9.2 (8.4-10.2) mg/dL AST 24 (14-36) U/L ALT 25 (4-34) U/L Alkaline Phosphatase 71 (38-126) U/L Total Protein 6.4 (6.3-8.2) g/dL Albumin 3.9 (3.5-5.0) g/dL Current Medications Generic Name Dose Route Start Last Admin Trade Name Freq PRN Reason Stop Dose Admin Apixaban 5 mg 12/31/20 09:00 12/31/20 07:56 Apixaban 5 Mg Tab PO 5 mg BID PHUONG Administration Protocol Atorvastatin Calcium 20 mg 12/31/20 09:00 12/31/20 07:55 Atorvastatin 20 Mg Tab PO 20 mg DAILY PHUONG Administration Calcium Carbonate 1 each 12/31/20 09:00 12/31/20 07:55 Calcium Carb-Vit D 500 Mg-5 Mcg Tab PO 1 each DAILY PHUONG Administration Cholecalciferol 125 mcg 12/31/20 09:00 12/31/20 07:55 Cholecalciferol 25 Mcg (1000 Iu) Tablet PO 125 mcg DAILY PHUONG Administration Flecainide Acetate 25 mg 12/31/20 09:00 12/31/20 07:56 Flecainide 50 Mg Tab PO 25 mg BID PHUONG Administration Diltiazem HCl 125 mg/ Sodium 125 mls @ 5 mls/hr 12/30/20 21:15 12/30/20 23:10 Chloride IV 10 mg/hr .Q24H PHUONG 10 mls/hr Infusion 5 MG/HR Losartan Potassium 75 mg 12/31/20 09:00 12/31/20 07:56 Losartan 25 Mg Tab PO 75 mg BID PHUONG Administration Magnesium Oxide 400 mg 12/31/20 09:00 12/31/20 07:55 Magnesium Oxide 400 Mg Tab PO 400 mg DAILY PHUONG Administration Metoprolol Tartrate 50 mg 01/01/21 09:00 Metoprolol Tartrate 50 Mg Tab PO DAILY PHUONG Metoprolol Tartrate 25 mg 12/31/20 21:00 Metoprolol Tartrate 25 Mg Tab PO HS PHUONG Morphine Sulfate 4 mg 12/30/20 23:30 Morphine Sulfate 4 Mg/Ml Syringe IV Q4HR PRN Chest Pain Multivitamins 1 each 12/31/20 09:00 12/31/20 07:56 Multivitamins, Thera 1 Each Tab PO 1 each DAILY PHUONG Administration Nitroglycerin 0.4 mg 12/30/20 23:30 Nitroglycerin Sl Tabs 0.4 Mg Tab SUBLINGUAL Q5M PRN Chest Pain Pantoprazole Sodium 40 mg 12/31/20 07:30 12/31/20 06:33 Pantoprazole 40 Mg Tablet PO 40 mg AC-BRKFST PHUONG Administration Triamterene/Hydrochlorothiazide 1 each 12/31/20 09:00 Triamterene-Hctz 37.5-25mg 1 Each Cap PO DAILY [facility] Intake and Output 12/30/20 12/31/20 12/31/20 22:59 06:59 14:59 Intake Total 8.083 Balance 8.083 Intake: Intake, IV Titration 8.083 Amount Diltiazem 125 mg In 8.083 Sodium Chloride 0.9% 100 ml @ 5 MG/HR 5 mls/hr IV .Q24H [facility] Rx#:[id number] Other: # Voids 1 1 Weight 70.307 kg 74.9 kg 12/30/20 21:24 12/30/20 21:24
[2020-12-31] MEDS: TRIAMTERENE-HCTZ 37.5-25MG 1 EACH CAP PO SCH (11:06)
[2020-12-31] MEDS ORDERED: ONDANSETRON 4 MG/2 ML VIAL IVP PRN (13:00)
[2020-12-31] MEDS ORDERED: ACETAMINOPHEN TAB 325 MG TAB PO PRN (13:00)
[2020-12-31] MEDS ORDERED: ONDANSETRON 4 MG/2 ML VIAL ONE (13:02)
[2020-12-31] MEDS: DILTIAZEM 125 MG in SODIUM CHLORIDE 0.9% 100 ML IV SCH (13:05)
--- NOTE | 2020-12-31 13:37 | P.HPIM ---
History of Present Illness H&P Date: 12/31/20 HISTORY OF PRESENT ILLNESS This is an 80-year-old female patient of Dr. Stuart with past medical history of paroxysmal atrial fibrillation hypertension, hyperlipidemia, generalized osteoarthritis, osteoporosis. Patient follows with Dr. Verma and an appointment last Tuesday was found to be in atrial fibrillation at that time, medications were adjusted and patient was scheduled for an ablation on January 27. Patient states that she has not been feeling well for the last couple weeks. She gets exhausted just going to the bathroom. She complains of shortness of breath, palpitations and chest pressure. Patient came into [facility] emergency center for evaluation. Heart rate 139 up to 152, blood pressure 127/80, pulse ox 99% on room air. EKG atrial fibrillation at 162 bpm. WBC 15.7, hemoglobin 13.1, platelet count 204. Sodium 132, potassium 4.3, chloride 102, CO2 21, BUN 23 and creatinine 0.89. Blood sugar 171. Magnesium 2.0, phosphorus 3.8, liver function test normal. TSH 1.250. Troponin negative. ProBNP 4300. Chest x-ray reveals coarse interstitial density consistent with pulmonary fibrosis without change. No heart failure is seen. Patient admitted to the cardiac stepdown unit for new onset atrial fibrillation cardiology consult requested echocardiogram has been ordered. REVIEW OF SYSTEMS Constitutional: No fever, no chills, no night sweats. No weight change. No weakness, fatigue or lethargy. No daytime sleepiness. EENT: No headache. No blurred vision or double vision, no loss of vision. No loss of Hearing, no ringing in the ears, no dizziness. No nasal drainage or congestion. No epistaxis. No sore throat. Lungs: Reports shortness of breath, cough, no sputum production. No wheezing. Cardiovascular: Reports chest pain, no lower extremity edema. Reports palpitations. Reports paroxysmal nocturnal dyspnea. No orthopnea. No lightheadedness or dizziness. No syncopal episodes. Abdominal: No abdominal pain. No nausea, vomiting. No diarrhea. No constipation. No bloody or tarry stools.. No loss of appetite. Genitourinary: No dysuria, increased frequency, urgency. No urinary retention. Musculoskeletal: No myalgias. No muscle weakness, no gait dysfunction, no frequent falls. No back pain. No neck pain. Integumentary: No wounds, no lesions. No rash or pruritus. No unusual bruising. No change in hair or nails. Neurologic: No aphasia. No facial droop. No change in mentation. No head injury. No headache. No paralysis. No paresthesia. Psychiatric: No depression. No anxiety. No mood swings. Endocrine: No abnormal blood sugars. No weight change. No excessive sweating or thirst. No cold intolerance. SOCIAL HISTORY Patient is a lifelong nonsmoker, no alcohol use, no illicit drug use or marijuana use. Patient does not require CPAP, oxygen. She is ambulatory without equipment. FAMILY HISTORY Father at age 80 from bladder cancer with history of CVA. Mother at age 42 from a myocardial infarction. Patient was 4 brothers and one has history of factor V, 3 have had strokes. Patient 6 sisters with no major medical problems. Patient has one son 49 years of age with no major medical problems. Patient also has one adopted daughter. PHYSICAL EXAMINATION Gen: This is an 80-year-old female. Patient is resting in bed and in no acute distress. HEENT: Head is atraumatic, normocephalic. Pupils equal, round. Sclerae is anicteric. NECK: Supple. No JVD. No lymphadenopathy. No thyromegaly. LUNGS: Clear to auscultation. No wheezes or rhonchi. No intercostal retractions. HEART: Irregular rate and rhythm. No murmur. ABDOMEN: Soft. Bowel sounds are present. No masses. No tenderness. EXTREMITIES: No pedal edema. No calf tenderness. Dorsalis pedis +2 bilaterally NEUROLOGICAL: Patient is awake, alert and oriented x3. Cranial nerves 2 through 12 are grossly intact. ASSESSMENT AND PLAN 1. Atrial fibrillation with RVR, paroxysmal atrial fibrillation. Cardiology consult appreciated. Patient is on a Cardizem drip, eliquis, metoprolol increased to 50 mg during the day and 25 mg at night, continue flecainide 25 mg twice daily. 2. Hyperlipidemia. Continue atorvastatin 20 mg daily. 3. Hypertension. Continue losartan 75 mg twice daily, Lopressor, Dyazide. 4. Osteoarthritis, generalized, stable. 5. Osteoporosis, stable. 6. GI prophylaxis. Protonix. 7. DVT prophylaxis. Eliquis. Patient will be admitted to the hospital for a minimum of 2 night stay. DISCHARGE PLAN Home. Impression and plan of care have been directed as dictated by the signing physician. Kerry Green nurse practitioner acting as scribe for signing physician. Past Medical History Past Medical History: Atrial Fibrillation, Hyperlipidemia, Hypertension, Os teoarthritis (OA) Additional Past Medical History / Comment(s): OSTEOPOROSIS. History of Any Multi-Drug Resistant Organisms: None Reported Past Surgical History: Orthopedic Surgery, Tonsillectomy, Tubal Ligation Additional Past Surgical History / Comment(s): BILATERAL KNEES. Past Anesthesia/Blood Transfusion Reactions: No Reported Reaction Past Psychological History: No Psychological Hx Reported Smoking Status: Never smoker Past Alcohol Use History: None Reported Past Drug Use History: None Reported - Past Family History Father Family Medical History: Cancer, CVA/TIA Additional Family Medical History / Comment(s): Father at age 80 from bladder cancer, with history of CVA. Mother Family Medical History: Myocardial Infarction ([place]) Additional Family Medical History / Comment(s): Mother at age 42 from a myocardial infarction. Brother(s) Family Medical History: Blood Disorder, CVA/TIA Additional Family Medical History / Comment(s): Patient was 4 brothers and one has history of factor V, 3 have had strokes. Patient 6 sisters with no major medical problems. Patient has one son 49 years of age with no major medical problems. Patient also has one adopted daughter. Medications and Allergies Home Medications Medication Instructions Recorded Confirmed Type Multivitamins, Thera [Multivitamin 1 tab PO DAILY 03/14/18 12/30/20 History (formulary)] Calcium Carb/Vitamin D3/Vit K1 1 tab PO DAILY 08/27/19 12/30/20 History [Citracal-D3 500 mg Soft Chew] Apixaban [Eliquis] 5 mg PO BID #60 tab 08/30/19 12/30/20 Rx Olmesartan [Benicar] 20 mg PO BID 09/21/19 12/30/20 History Omeprazole [PriLOSEC] 40 mg PO AC-BRKFST 09/21/19 12/30/20 History Cholecalciferol (Vitamin D3) 125 mcg PO DAILY 12/30/20 12/30/20 History [Vitamin D3 (125 MCG = 5,000 IU)] Flecainide [Tambocor] 25 mg PO BID 12/30/20 12/30/20 History Magnesium 250 mg PO DAILY 12/30/20 12/30/20 History Metoprolol Tartrate [Lopressor] 12.5 mg PO BID 12/30/20 12/30/20 History Rosuvastatin [Crestor] 10 mg PO DAILY 12/30/20 12/30/20 History Triamterene-Hctz 37.5-25Mg 1 cap PO DAILY 12/30/20 12/30/20 History [Dyazide 37.5-25 Capsule] Allergies Allergy/AdvReac Type Severity Reaction Status Date / Time contact metal agent Allergy Unknown Unknown Verified 12/30/20 21:09 nickel Allergy burning, Verified 12/30/20 21:09 pain Physical Exam Vitals: Vital Signs Temp Pulse Pulse Resp BP BP Pulse Ox 12/31/20 08:00 85 18 12/31/20 07:53 97.7 F 85 18 107/67 98 12/31/20 04:00 120 H 18 112/83 99 12/31/20 00:59 98.0 F 145 H 18 139/88 98 12/31/20 00:13 116 H 16 95/76 90 L 12/31/20 00:01 124 H 16 99/67 93 L 12/30/20 23:45 118 H 16 113/72 93 L 12/30/20 23:34 125 H 16 90/71 93 L 12/30/20 23:10 144 H 20 109/62 96 12/30/20 22:31 114 H 20 96 12/30/20 21:41 117 H 18 113/89 93 L 12/30/20 21:40 152 H 12/30/20 21:05 98.7 F 139 H 18 127/80 99 Intake and Output 12/30/20 12/31/20 12/31/20 22:59 06:59 14:59 Intake Total 8.083 Balance 8.083 Intake: Intake, IV Titration 8.083 Amount Diltiazem 125 mg In 8.083 Sodium Chloride 0.9% 100 ml @ 5 MG/HR 5 mls/hr IV .Q24H [facility] Rx#:[id number] Other: # Voids 1 1 Weight 70.307 kg 74.9 kg Results CBC & Chem 7: 12/30/20 21:24 12/30/20 21:24 Labs: Abnormal Lab Results - Last 24 Hours (Table) 12/30/20 12/30/20 12/31/20 Range/Units 21:24 21:24 04:18 WBC 15.7 H (3.8-10.6) k/uL Neutrophils # 13.9 H (1.3-7.7) k/uL Sodium 132 L (137-145) mmol/L Carbon Dioxide 21 L (22-30) mmol/L BUN 23 H (7-17) mg/dL Glucose 171 H (74-99) mg/dL Creatine Kinase <20 L (30-135) U/L Urine Appearance Cloudy H (Clear) Ur Leukocyte Esterase Moderate H (Negative) Urine WBC 6 H (0-5) /hpf Urine Mucus Rare H (None) /hpf Thrombosis Risk Factor Assmnt - Choose All That Apply Any of the Below Risk Factors Present?: No Other Risk Factors: No Other congenital or acquired thrombophilia - If yes, enter type in comment: No Thrombosis Risk Factor Assessment Level: Very Low Risk
--- NOTE | 2020-12-31 14:00 | ECHOF ---
Referral Reason:LV function MEASUREMENTS -------- HEIGHT: 162.6 cm WEIGHT: 74.8 kg BP: 107/67 RVIDd: 3.2 cm (< 3.3) IVSd: 1.2 cm (0.6 - 1.1) LVIDd: 4.5 cm (3.9 - 5.3) LVPWd: 1.3 cm (0.6 - 1.1) IVSs: 2.0 cm LVIDs: 3.3 cm LVPWs: 1.6 cm LA Diam: 3.6 cm (2.7 - 3.8) LAESV Index (A-L): 43.28 ml/m Ao Diam: 3.4 cm (2.0 - 3.7) AV Cusp: 1.3 cm (1.5 - 2.6) MV EXCURSION: 6.594 mm (> 18.000) MV EF SLOPE: 47 mm/s (70 - 150) EPSS: 1.0 cm RAP: 5.00 mmHg RVSP: 62.33 mmHg FINDINGS -------- Atrial fibrillation. This was a technically adequate study. The left ventricular size is normal. There is mild concentric left ventricular hypertrophy. Overa ll left ventricular systolic function is low-normal with, an EF between 50 - 55 %. The right ventricle is normal in size. LA is severely dilated >40 ml/m2 The right atrium is normal in size. Interatrial and interventricular septum intact. There is mild aortic valve sclerosis. The mitral valve leaflets are mildly thickened. Mild mitral annular calcification present. Mild m itral regurgitation is present. Moderate tricuspid regurgitation present. There is severe pulmonary hypertension. The right ventr icular systolic pressure, as measured by Doppler, is 62.33mmHg. Trace/mild (physiologic) pulmonic regurgitation. The aortic root size is normal. Normal inferior vena cava with normal inspiratory collapse consistent with estimated right atrial pre ssure of 5 mmHg. The inferior vena cava is mildly dilated. There is no pericardial effusion. CONCLUSIONS -------- 1. The left ventricular size is normal. 2. There is mild concentric left ventricular hypertrophy. 3. Overall left ventricular systolic function is low-normal with, an EF between 50 - 55 %. 4. LA is severely dilated >40 ml/m2 5. There is mild aortic valve sclerosis. 6. The mitral valve leaflets are mildly thickened. 7. Mild mitral annular calcification present. 8. Mild mitral regurgitation is present. 9. Moderate tricuspid regurgitation present. 10. There is severe pulmonary hypertension. 11. The right ventricular systolic pressure, as measured by Doppler, is 62.33mmHg. 12. Trace/mild (physiologic) pulmonic regurgitation. 13. There is no pericardial effusion. HUSBANDRY PERSON: Nu Zapata RDCS
[2020-12-31] MEDS ORDERED: MELATONIN 5 MG TABLET PO PRN (20:47)
[2020-12-31] MEDS: METOPROLOL TARTRATE 25 MG TAB PO SCH (21:22)
[2020-12-31 23:26] VITALS: RESP 16
[2021-01-01] MEDS: PANTOPRAZOLE 40 MG TABLET PO SCH (06:35)
[2021-01-01] MEDS: ATORVASTATIN 20 MG TAB PO SCH (08:42)
[2021-01-01] MEDS: TRIAMTERENE-HCTZ 37.5-25MG 1 EACH CAP PO SCH (08:42)
[2021-01-01] MEDS: APIXABAN 5 MG TAB PO SCH ×2 (08:42→19:46)
[2021-01-01] MEDS: METOPROLOL TARTRATE 50 MG TAB PO SCH (08:43)
[2021-01-01] MEDS: MAGNESIUM OXIDE 400 MG TAB PO SCH (08:43)
[2021-01-01] MEDS: LOSARTAN 25 MG TAB PO SCH ×2 (08:43→19:46)
[2021-01-01] MEDS: DILTIAZEM 125 MG in SODIUM CHLORIDE 0.9% 100 ML IV SCH (08:46)
[2021-01-01 11:00] LABS: HCT 37.9 % (34.0-46.0); HGB 12.4 gm/dL (11.4-16.0); MCH 31.9 pg (25.0-35.0); MCHC 32.8 g/dL (31.0-37.0); MCV 97.3 fL (80.0-100.0); Mean Platelet Volume 8.1; Platelet Count 172 k/uL (150-450); RBC 3.89 m/uL (3.80-5.40); RDW 13.1 % (11.5-15.5); WBC 13.5 k/uL (3.8-10.6)
[2021-01-01 11:18] LABS: Albumin 3.5 g/dL (3.5-5.0); Calcium 8.6 mg/dL (8.4-10.2); Potassium 4.6 mmol/L (3.5-5.1); Total Bilirubin 1.2 mg/dL (0.2-1.3); Total Protein 5.9 g/dL (6.3-8.2)
--- NOTE | 2021-01-01 11:53 | P.CNPUL ---
History of Present Illness Consult date: 01/01/21 Requesting physician: Edvin Stuart Reason for consult: dyspnea, hypoxemia, pulmonary hypertension Chief complaint: Abnormal echocardiogram revealing pulmonary hypertension. History of present illness: Pulmonary consultation dated 01/01/2021. 80-year-old female, who presented to the emergency department, at about 9:00 PM, on December 30. She apparently was having palpitations and a rapid heartbeat. She thought her atrial fibrillation was likely out of control. The patient sees Dr. 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 The patient apparently had a cardioversion about a year ago, but because of ongoing issues with atrial fibrillation, she was scheduled for an ablation on January 27. She doesn't think she can wait because of the shortness of breath that she has when her atrial fibrillation is out of control. She had echocardiogram which showed evidence of pulmonary hypertension, probably secondary in nature and not primary pulmonary hypertension. He does not have a history of any underlying lung disease. She specifically denies any COPD, emphysema, asthma, chronic bronchitis, or any other lung issue. She is a lifelong nonsmoker. She does have history of hypertension, and hyperlipidemia, as well as atrial fibrillation, and also suffers from osteoporosis. Echocardiogram revealed evidence of a low to normal ejection fraction of 50-55%, as well as a estimated right ventricular systolic pressure of 62 mmHg. In addition, there is evidence of trace to mild pulmonary regurgitation, as well as some moderate tricuspid regurgitation, all going along with what we would typically see with pulmonary hypertension of any cause. Chest x-ray shows some diffuse interstitial changes, and some fluid in the minor fissure, consistent with mild interstitial edema. In addition, the N-terminal proBNP was elevated at 4300, and 6150 on repeat evaluation. The mild pulmonary venous hypertension and interstitial edema relates to her atrial fibrillation with rapid ventricular response. Currently, she is on 2 L nasal cannula, and a Cardizem drip at 10 mg an hour. Labs are reviewed. Sodium potassium chloride CO2 all normal. Anion gap was 9, BUN is 22 with a creatinine of 1.11. White count 13.5, with a normal hemoglobin, hematocrit, and platelet count. Review of Systems REVIEW OF SYSTEMS: CONSTITUTIONAL: [Negative.] NEUROLOGIC: [ Negative.] HEENT: [ Negative.] CARDIAC: Palpitations, with a rapid heartbeat. PULMONARY: Mild to moderate shortness of breath more so on exertion. GI: [Negative.] : [Negative.] RHEUMATOLOGIC: [ Negative.] IMMUNOLOGIC: [ Negative.] ENDOCRINE: [Negative. ] DERMATOLOGIC: [Negative.] Past Medical History Past Medical History: Atrial Fibrillation, Hyperlipidemia, Hypertension, Osteoarthritis (OA) Additional Past Medical History / Comment(s): OSTEOPOROSIS. History of Any Multi-Drug Resistant Organisms: None Reported Past Surgical History: Orthopedic Surgery, Tonsillectomy, Tubal Ligation Additional Past Surgical History / Comment(s): BILATERAL KNEES. Past Anesthesia/Blood Transfusion Reactions: No Reported Reaction Past Psychological History: No Psychological Hx Reported Smoking Status: Never smoker Past Alcohol Use History: None Reported Past Drug Use History: None Reported - Past Family History Father Family Medical History: Cancer, CVA/TIA Additional Family Medical History / Comment(s): Father at age 80 from bladder cancer, with history of CVA. Mother Family Medical History: Myocardial Infarction ([place]) Additional Family Medical History / Comment(s): Mother at age 42 from a myocardial infarction. Brother(s) Family Medical History: Blood Disorder, CVA/TIA Additional Family Medical History / Comment(s): Patient was 4 brothers and one has history of factor V, 3 have had strokes. Patient 6 sisters with no major medical problems. Patient has one son 49 years of age with no major medical problems. Patient also has one adopted daughter. Medications and Allergies Home Medications Medication Instructions Recorded Confirmed Type Multivitamins, Thera [Multivitamin 1 tab PO DAILY 03/14/18 12/30/20 History (formulary)] Calcium Carb/Vitamin D3/Vit K1 1 tab PO DAILY 08/27/19 12/30/20 History [Citracal-D3 500 mg Soft Chew] Apixaban [Eliquis] 5 mg PO BID #60 tab 08/30/19 12/30/20 Rx Olmesartan [Benicar] 20 mg PO BID 09/21/19 12/30/20 History Omeprazole [PriLOSEC] 40 mg PO AC-BRKFST 09/21/19 12/30/20 History Cholecalciferol (Vitamin D3) 125 mcg PO DAILY 12/30/20 12/30/20 History [Vitamin D3 (125 MCG = 5,000 IU)] Flecainide [Tambocor] 25 mg PO BID 12/30/20 12/30/20 History Magnesium 250 mg PO DAILY 12/30/20 12/30/20 History Metoprolol Tartrate [Lopressor] 12.5 mg PO BID 12/30/20 12/30/20 History Rosuvastatin [Crestor] 10 mg PO DAILY 12/30/20 12/30/20 History Triamterene-Hctz 37.5-25Mg 1 cap PO DAILY 12/30/20 12/30/20 History [Dyazide 37.5-25 Capsule] Allergies Allergy/AdvReac Type Severity Reaction Status Date / Time contact metal agent Allergy Unknown Unknown Verified 12/30/20 21:09 nickel Allergy burning, Verified 12/30/20 21:09 pain Physical Exam Osteopathic Statement: *. No significant issues noted on an osteopathic structural exam other than those noted in the History and Physical/Consult. Vitals: Vital Signs Temp Pulse Resp BP Pulse Ox 01/01/21 03:57 98.4 F 92 16 116/62 92 L 12/31/20 23:58 97.6 F 84 16 99/87 98 12/31/20 20:00 98.2 F 79 16 98/61 96 12/31/20 15:54 98.2 F 114 H 18 115/78 94 L 12/31/20 13:50 81 18 Intake and Output 12/31/20 01/01/21 01/01/21 22:59 06:59 14:59 Intake Total 118.333 106.667 Balance 118.333 106.667 Intake: Intake, IV Titration 18.333 106.667 Amount Diltiazem 125 mg In 18.333 106.667 Sodium Chloride 0.9% 100 ml @ 5 MG/HR 5 mls/hr IV .Q24H [facility] Rx#:[id number] Oral 100 Other: # Voids 1 1 Weight 76.5 kg No acute distress, oriented 3. Currently on 3 L of O2, with saturations of 96%. HEENT examination is grossly unremarkable. Neck supple. Full range of motion. No adenopathy thyromegaly or neck vein distention. Cardiovascular examination reveals an irregular rhythm and rate. S1-S2 normal. No S3 or S4. No discernible murmur noted. Heart rate is between 92 up to 140 bpm. Lungs reveal mostly clear breath sounds. A few scattered rhonchi are noted. No wheezes or significant crackles. Breath sounds equal bilaterally. The exam is mostly normal. Abdomen soft bowel sounds are heard. No masses or tenderness. Extremities are intact. No cyanosis clubbing or edema. Skin is without rash or lesion. Neurologic examination is brief but nonfocal. Results - Laboratory Findings CBC and BMP: 01/01/21 10:43 01/01/21 10:43 PT/INR, D-dimer PT 11.5 sec (9.0-12.0) 12/30/20 21:24 INR 1.1 (<1.2) 12/30/20 21:24 Abnormal lab findings: Abnormal Labs 12/30/20 12/30/20 12/31/20 21:24 21:24 04:18 WBC 15.7 H Neutrophils # 13.9 H Sodium 132 L Carbon Dioxide 21 L BUN 23 H Creatinine Glucose 171 H Creatine Kinase <20 L Total Protein Urine Appearance Cloudy H Ur Leukocyte Esterase Moderate H Urine WBC 6 H Urine Mucus Rare H 01/01/21 01/01/21 10:43 10:43 WBC 13.5 H Neutrophils # Sodium Carbon Dioxide BUN 22 H Creatinine 1.11 H Glucose 120 H Creatine Kinase Total Protein 5.9 L Urine Appearance Ur Leukocyte Esterase Urine WBC Urine Mucus - Diagnostic Findings Chest x-ray: image reviewed Assessment and Plan Assessment: Pulmonary hypertension, likely secondary, to both hypertension, and chronic atrial fibrillation. No evidence to suspect underlying pulmonary disease. Right-sided valvular regurgitation, secondary to pulmonary hypertension. Chronic atrial fibrillation, status post cardioversion, about 1 year ago, with anticipated ablation, on January 27 of this year. History of hypertension. History of hyperlipidemia. History of osteoporosis. History of arthritis. Plan: Plan dated 01/01/2021. The patient appears to be relatively stable at this time. She's being seen by cardiology. She remains on a Cardizem drip. She is on 3 L nasal cannula. Labs, x-rays, echocardiogram, are all reviewed. We will continue to follow. I would like to see the patient in the office post discharge, for pulmonary function testing, just to make sure there is no underlying pulmonary disease. In addition, we will get into more detail as it relates to the possibility of obstructive sleep apnea syndrome. Time with Patient: Greater than 30
[2021-01-01] MEDS ORDERED: SODIUM CHLORIDE 0.9% 1,000 ML IV SCH (12:00)
--- NOTE | 2021-01-01 12:15 | P.PN ---
Subjective Progress Note Date: 01/01/21 This is present 80-year-old female patient who follows with Dr. Narvaez in the office. Has a history of underlying sick sinus syndrome, hypertension and hyperlipidemia as well as persistent atrial fibrillation. She is planned for A. fib ablation on 01/27/2021. She continues to have significant shortness of breath with any activity. And palpitations. She continues to be on Cardizem at 5 mg an hour, flecainide and metoprolol 50 mg every morning and 20 5 in the evening. Heart rates continued to be poorly controlled with activity up in the 140s. She is currently NPO for possible intervention today but nothing is planned as of yet. Objective - Vital Signs Vital signs: Vital Signs Temp 97.3 F L 01/01/21 08:00 Pulse 140 H 01/01/21 08:00 Resp 16 01/01/21 08:00 BP 108/77 01/01/21 08:00 Pulse Ox 96 01/01/21 08:00 Intake & Output 12/31/20 01/01/21 01/01/21 18:59 06:59 18:59 Intake Total 235.250 106.667 Balance 235.250 106.667 Weight 76.5 kg Intake: Intake, IV Titration 135.250 106.667 Amount Diltiazem 125 mg In 135.250 106.667 Sodium Chloride 0.9% 100 ml @ 5 MG/HR 5 mls/hr IV .Q24H [facility] Rx#:[id number] Oral 100 Other: # Voids 1 1 - Exam PHYSICAL EXAMINATION: HEENT: Head is atraumatic, normocephalic. Pupils equal, round. Neck is supple. There is no elevated jugular venous pressure. HEART EXAMINATION: Heart sounds irregularly irregular with tachycardia, S1 and S2 normal. CHEST EXAMINATION: Lungs are clear to auscultation and precussion. No chest wall tenderness is noted on palpation or with deep breathing. ABDOMEN: Soft, nontender. Bowel sounds are heard. No organomegaly noted. EXTREMITIES: 2+ peripheral pulses with no evidence of peripheral edema and no calf tenderness noted. NEUROLOGIC patient is awake, alert and oriented x3. . - Labs CBC & Chem 7: 01/01/21 10:43 01/01/21 10:43 Labs: Abnormal Lab Results - Last 24 Hours (Table) 01/01/21 01/01/21 Range/Units 10:43 10:43 WBC 13.5 H (3.8-10.6) k/uL BUN 22 H (7-17) mg/dL Creatinine 1.11 H (0.52-1.04) mg/dL Glucose 120 H (74-99) mg/dL Total Protein 5.9 L (6.3-8.2) g/dL Assessment and Plan Assessment: #1 persistent atrial fibrillation with rapid ventricular response, status post cardioversion September 2019 #2 history of sick sinus syndrome #3 hypertension #4 hyperlipidemia Plan: I Spoke with Dr. Narvaez. He will performed cardioversion today to hopefully attain sinus mechanism until the patient can have A. fib ablation at a Later Date. Continue anticoagulation, flecainide and metoprolol. Further recommendations to follow. HEALTHCARE PROF note has been reviewed, I agree with a documented findings and plan of care. Patient was seen and examined.
[2021-01-01] MEDS: CHOLECALCIFEROL 25 MCG (1000 IU) TABLET PO SCH (12:17)
[2021-01-01] MEDS: FLECAINIDE 50 MG TAB PO SCH ×2 (12:17→19:47)
[2021-01-01] MEDS: MULTIVITAMINS, THERA 1 EACH TAB PO SCH (12:17)
[2021-01-01] MEDS: CALCIUM CARB-VIT D 500 MG-5 MCG TAB PO SCH (12:17)
--- NOTE | 2021-01-01 12:23 | P.PN ---
Subjective Progress Note Date: 01/01/21 HISTORY OF PRESENT ILLNESS This is an 80-year-old female patient of Dr. Stuart with past medical history of paroxysmal atrial fibrillation hypertension, hyperlipidemia, gen eralized osteoarthritis, osteoporosis. Patient follows with Dr. Verma and an appointment last Tuesday was found to be in atrial fibrillation at that time, medications were adjusted and patient was scheduled for an ablation on January 27. Patient states that she has not been feeling well for the last couple weeks. She gets exhausted just going to the bathroom. She complains of shortness of breath, palpitations and chest pressure. Patient came into [facility] emergency center for evaluation. Heart rate 139 up to 152, blood pressure 127/80, pulse ox 99% on room air. EKG atrial fibrillation at 162 bpm. WBC 15.7, hemoglobin 13.1, platelet count 204. Sodium 132, potassium 4.3, chloride 102, CO2 21, BUN 23 and creatinine 0.89. Blood sugar 171. Magnesium 2.0, phosphorus 3.8, liver function test normal. TSH 1.250. Troponin negative. ProBNP 4300. Chest x-ray reveals coarse interstitial density consistent with pulmonary fibrosis without change. No heart failure is seen. Patient admitted to the cardiac stepdown unit for new onset atrial fibrillation cardiology consult requested echocardiogram has been ordered. 01/01: Patient states that she gets very short of breath when she gets up to walk. Cardiology has evaluated patient and there is no plan for ablation earlier than scheduled in January. Echocardiogram reveals EF of 50-55%, mild concentric left ventricular hypertrophy, LA severely dilated greater than or ML/M2, mild aortic valve sclerosis, mild mitral regurgitation, moderate tricuspid regurgitation, severe pulmonary hypertension. Consult added for Dr. Mott regarding pulmonary hypertension.patient has been afebrile, heart rate 140, blood pressure 108/77, pulse ox 96% on 3 L nasal cannula. Repeat blood work reveals WBC 13.5, hemoglobin 12.4, platelet count 172. Electrolytes are normal. BUN 22 and creatinine 1.1, blood sugar 120. Repeat troponin negative. ProBNP 6150. Triglycerides 130, cholesterol 170, LDL 103, HDL 41. Urinalysis with leukoesterase moderate, WBC 6. REVIEW OF SYSTEMS Constitutional: No fever, no chills, no night sweats. No weight change. No weakness, fatigue or lethargy. No daytime sleepiness. EENT: No headache. No blurred vision or double vision, no loss of vision. No loss of Hearing, no ringing in the ears, no dizziness. No nasal drainage or congestion. No epistaxis. No sore throat. Lungs: Reports shortness of breath, cough, no sputum production. No wheezing. Cardiovascular: Reports chest pain, no lower extremity edema. Reports palpitations. Reports paroxysmal nocturnal dyspnea. No orthopnea. No lightheadedness or dizziness. No syncopal episodes. Abdominal: No abdominal pain. No nausea, vomiting. No diarrhea. No constipation. No bloody or tarry stools.. No loss of appetite. Genitourinary: No dysuria, increased frequency, urgency. No urinary retention. Musculoskeletal: No myalgias. No muscle weakness, no gait dysfunction, no frequent falls. No back pain. No neck pain. Integumentary: No wounds, no lesions. No rash or pruritus. No unusual bruising. No change in hair or nails. Neurologic: No aphasia. No facial droop. No change in mentation. No head injury. No headache. No paralysis. No paresthesia. Psychiatric: No depression. No anxiety. No mood swings. Endocrine: No abnormal blood sugars. No weight change. No excessive sweating or thirst. No cold intolerance. PHYSICAL EXAMINATION Gen: This is an 80-year-old female. Patient is resting in bed and in no acute distress. HEENT: Head is atraumatic, normocephalic. Pupils equal, round. Sclerae is anicteric. NECK: Supple. No JVD. No lymphadenopathy. No thyromegaly. LUNGS: Clear to auscultation. No wheezes or rhonchi. No intercostal re tractions. HEART: Irregular rate and rhythm. No murmur. ABDOMEN: Soft. Bowel sounds are present. No masses. No tenderness. EXTREMITIES: No pedal edema. No calf tenderness. Dorsalis pedis +2 bilaterally NEUROLOGICAL: Patient is awake, alert and oriented x3. Cranial nerves 2 through 12 are grossly intact. ASSESSMENT AND PLAN 1. Atrial fibrillation with RVR, paroxysmal atrial fibrillation. Cardiology consult appreciated. Patient is on a Cardizem drip, eliquis, metoprolol 50 mg q day and 25 mg at night, continue flecainide 25 mg twice daily. 2. Hyperlipidemia. Continue atorvastatin 20 mg daily. 3. Hypertension. Continue losartan 75 mg twice daily, Lopressor, Dyazide. 4. Osteoarthritis, generalized, stable. 5. Osteoporosis, stable. 6. GI prophylaxis. Protonix. 7. DVT prophylaxis. Eliquis. 8. Severe pulmonary hypertension. Consult added for Dr. Mott. 9. Urinary tract infection, present on admission. Patient started on ceftriaxone. DISCHARGE PLAN Home. Impression and plan of care have been directed as dictated by the signing physician. Kerry Green nurse practitioner acting as scribe for signing physician. Objective - Vital Signs Vital signs: Vital Signs Temp 98.4 F 01/01/21 03:57 Pulse 92 01/01/21 03:57 Resp 16 01/01/21 03:57 BP 116/62 01/01/21 03:57 Pulse Ox 92 L 01/01/21 03:57 Intake & Output 12/31/20 01/01/21 01/01/21 18:59 06:59 18:59 Intake Total 235.250 106.667 Balance 235.250 106.667 Weight 76.5 kg Intake: Intake, IV Titration 135.250 106.667 Amount Diltiazem 125 mg In 135.250 106.667 Sodium Chloride 0.9% 100 ml @ 5 MG/HR 5 mls/hr IV .Q24H [facility] Rx#:[id number] Oral 100 Other: # Voids 1 1 - Labs CBC & Chem 7: 01/01/21 10:43 01/01/21 10:43
[2021-01-01] MEDS ORDERED: LIDOCAINE 1% INJ 10MG/ML (20 ML MDV) ONE (13:20)
[2021-01-01] MEDS ORDERED: PROPOFOL 10 MG/ML 20 ML VIAL IV ONE (13:20)
--- NOTE | 2021-01-01 16:04 | XR ---
EXAMINATION TYPE: XR chest 2V DATE OF EXAM: 01/01/2021 COMPARISON: 12/30/2020. HISTORY: Chest pain. TECHNIQUE: Frontal and lateral views of the chest are obtained. FINDINGS: There is decrease of interstitial edema and superimposed hazy opacity, with mild residual. There are trace pleural effusions. No pneumothorax seen. The cardiac silhouette size is mildly enla rged. The osseous structures are intact. IMPRESSION: Improving interstitial edema/atelectasis with mild residual.
--- NOTE | 2021-01-01 16:12 | P.EPPROC ---
- EP Procedure Note Electrophysiology Procedure Note: Diagnosis Recurrence of atrial fibrillation with RVR, symptomatic despite flecainide Procedure Electrical cardioversion Procedure details Under conscious sedation successful electrical cardioversion was performed with a 200 J shock in the AP configuration Delivered energy 260 J Patient tolerated the procedure well without any acute complications Plan continue low-dose flecainide Continue ELIQUIS Proceed with AF ablation as previously scheduled
[2021-01-01] MEDS: METOPROLOL TARTRATE 25 MG TAB PO SCH (19:46)
[2021-01-01] MEDS ORDERED: MAGNESIUM HYDROXIDE 2,400 MG/10 ML CUP PO PRN (21:42)
[2021-01-02 03:50] VITALS: TEMP 97.7
[2021-01-02] MEDS: PANTOPRAZOLE 40 MG TABLET PO SCH (06:04)
[2021-01-02 08:02] LABS: HCT 32.5 % (34.0-46.0); HGB 10.6 gm/dL (11.4-16.0); MCH 31.7 pg (25.0-35.0); MCHC 32.5 g/dL (31.0-37.0); MCV 97.5 fL (80.0-100.0); Mean Platelet Volume 8.4; Platelet Count 153 k/uL (150-450); RBC 3.34 m/uL (3.80-5.40); RDW 13.1 % (11.5-15.5); WBC 8.3 k/uL (3.8-10.6)
[2021-01-02 08:12] LABS: Albumin 3.1 g/dL (3.5-5.0); Calcium 8.3 mg/dL (8.4-10.2); Potassium 3.9 mmol/L (3.5-5.1); Total Bilirubin 0.7 mg/dL (0.2-1.3); Total Protein 5.5 g/dL (6.3-8.2)
[2021-01-02] MEDS ORDERED: LOSARTAN 50 MG TAB PO SCH (09:00)
[2021-01-02] MEDS: FLECAINIDE 50 MG TAB PO SCH (09:51)
--- NOTE | 2021-01-02 09:51 | P.DS ---
Providers Date of admission: 12/30/20 23:30 Expected date of discharge: 01/02/21 Attending physician: Edvin Stuart Consults: 12/30/20 23:30 Consult Physician Urgent Consulting Provider: Víctor Narvaez Consult Reason/Comments: afibRVR Do you want consulting provider notified?: Yes 01/01/21 10:26 Consult Physician Routine Consulting Provider: Zay Mott Consult Reason/Comments: pulm htn Do you want consulting provider notified?: Yes Primary care physician: Edvin Stuart [facility] Course: HISTORY OF PRESENT ILLNESS This is an 80-year-old female patient of Dr. Stuart with past medical history of paroxysmal atrial fibrillation hypertension, hyperlipidemia, generalized osteoarthritis, osteoporosis. Patient follows with Dr. Verma and an appointment last Tuesday was found to be in atrial fibrillation at that time, medications were adjusted and patient was scheduled for an ablation on January 27. Patient states that she has not been feeling well for the last couple weeks. She gets exhausted just going to the bathroom. She complains of shortness of breath, palpitations and chest pressure. Patient came into [facility] emergency center for evaluation. Heart rate 139 up to 152, blood pressure 127/80, pulse ox 99% on room air. EKG atrial fibrillation at 162 bpm. WBC 15.7, hemoglobin 13.1, platelet count 204. Sodium 132, potassium 4.3, chloride 102, CO2 21, BUN 23 and creatinine 0.89. Blood sugar 171. Magnesium 2.0, phosphorus 3.8, liver function test normal. TSH 1.250. Troponin negative. ProBNP 4300. Chest x-ray reveals coarse interstitial density consistent with pulmonary fibrosis without change. No heart failure is seen. Patient admitted to the cardiac stepdown unit for new onset atrial fibrillation cardiology consult requested echocardiogram has been ordered. 01/01: Patient states that she gets very short of breath when she gets up to walk. Cardiology has evaluated patient and there is no plan for ablation earlier than scheduled in January. Echocardiogram reveals EF of 50-55%, mild concentric left ventricular hypertrophy, LA severely dilated greater than or ML/M2, mild aortic valve sclerosis, mild mitral regurgitation, moderate tricuspid regurgitation, severe pulmonary hypertension. Consult added for Dr. Mott regarding pulmonary hypertension.patient has been afebrile, heart rate 140, blood pressure 108/77, pulse ox 96% on 3 L nasal cannula. Repeat blood work reveals WBC 13.5, hemoglobin 12.4, platelet count 172. Electrolytes are normal. BUN 22 and creatinine 1.1, blood sugar 120. Repeat troponin negative. ProBNP 6150. Triglycerides 130, cholesterol 170, LDL 103, HDL 41. Urinalysis with leukoesterase moderate, WBC 6. 8/13: The patient underwent cardioversion and converted to sinus rhythm. Patient has been in sinus rhythm this morning and has been cleared for discharge by Dr. Narvaez. Heart rate in the 70s, blood pressure 114/74, pulse ox 97% on room air. Patient will be discharged home today in stable condition. ASSESSMENT AND PLAN 1. Atrial fibrillation with RVR, paroxysmal atrial fibrillation, converted to sinus rhythm following cardioversion. 2. Hyperlipidemia. 3. Hypertension. 4. Osteoarthritis, generalized, stable. 5. Osteoporosis, stable. 6. Severe pulmonary hypertension. 9. Urinary tract infection, present on admission. DISCHARGE PLAN Home. Impression and plan of care have been directed as dictated by the signing physician. eKrry Green nurse practitioner acting as scribe for signing physician. Patient Condition at Discharge: Good Plan - Discharge Summary Discharge Rx Participant: No New Discharge Prescriptions: New Metoprolol Tartrate [Lopressor] 25 mg PO HS #30 tab Metoprolol Tartrate [Lopressor] 50 mg PO DAILY #30 tab Cefuroxime Axetil [Ceftin] 500 mg PO BID 3 Days #6 tab Continue Multivitamins, Thera [Multivitamin (formulary)] 1 tab PO DAILY Calcium Carb/Vitamin D3/Vit K1 [Citracal-D3 500 mg Soft Chew] 1 tab PO DAILY Apixaban [Eliquis] 5 mg PO BID #60 tab Olmesartan [Benicar] 20 mg PO BID Omeprazole [PriLOSEC] 40 mg PO AC-BRKFST Magnesium 250 mg PO DAILY Flecainide [Tambocor] 25 mg PO BID Cholecalciferol (Vitamin D3) [Vitamin D3 (125 MCG = 5,000 IU)] 125 mcg PO DAILY Triamterene-Hctz 37.5-25Mg [Dyazide 37.5-25 Capsule] 1 cap PO DAILY Rosuvastatin [Crestor] 10 mg PO DAILY Discontinued Metoprolol Tartrate [Lopressor] 12.5 mg PO BID Discharge Medication List Multivitamins, Thera [Multivitamin (formulary)] 1 tab PO DAILY 03/14/18 [History] Calcium Carb/Vitamin D3/Vit K1 [Citracal-D3 500 mg Soft Chew] 1 tab PO DAILY 08/27/19 [History] Apixaban [Eliquis] 5 mg PO BID #60 tab 08/30/19 [Rx] Olmesartan [Benicar] 20 mg PO BID 09/21/19 [History] Omeprazole [PriLOSEC] 40 mg PO AC-BRKFST 09/21/19 [History] Cholecalciferol (Vitamin D3) [Vitamin D3 (125 MCG = 5,000 IU)] 125 mcg PO DAILY 12/30/20 [History] Flecainide [Tambocor] 25 mg PO BID 12/30/20 [History] Magnesium 250 mg PO DAILY 12/30/20 [History] Rosuvastatin [Crestor] 10 mg PO DAILY 12/30/20 [History] Triamterene-Hctz 37.5-25Mg [Dyazide 37.5-25 Capsule] 1 cap PO DAILY 12/30/20 [History] Cefuroxime Axetil [Ceftin] 500 mg PO BID 3 Days #6 tab 01/02/21 [Rx] Metoprolol Tartrate [Lopressor] 25 mg PO HS #30 tab 01/02/21 [Rx] Metoprolol Tartrate [Lopressor] 50 mg PO DAILY #30 tab 01/02/21 [Rx] Follow up Appointment(s)/Referral(s): Víctor Narvaez MD [STAFF PHYSICIAN] - 2 Weeks (Office will all with appt. ) Edvin Stuart MD [Primary Care Provider] - 01/09/21 10:00 am (appt is with NP. Dona) Patient Instructions/Handouts: A-fib (Atrial Fibrillation) (ED), Cardioversion (DC) Discharge Disposition: HOME SELF-CARE
[2021-01-02] MEDS: METOPROLOL TARTRATE 50 MG TAB PO SCH (09:52)
[2021-01-02] MEDS: CALCIUM CARB-VIT D 500 MG-5 MCG TAB PO SCH (09:52)
[2021-01-02] MEDS: ATORVASTATIN 20 MG TAB PO SCH (09:52)
[2021-01-02] MEDS: MAGNESIUM OXIDE 400 MG TAB PO SCH (09:52)
[2021-01-02] MEDS: TRIAMTERENE-HCTZ 37.5-25MG 1 EACH CAP PO SCH (09:52)
[2021-01-02] MEDS: APIXABAN 5 MG TAB PO SCH (09:52)
[2021-01-02] MEDS: CHOLECALCIFEROL 25 MCG (1000 IU) TABLET PO SCH (09:52)
[2021-01-02] MEDS: MULTIVITAMINS, THERA 1 EACH TAB PO SCH (09:52)
--- NOTE | 2021-01-02 10:58 | P.PN ---
Subjective Progress Note Date: 01/02/21 Principal diagnosis: Atrial fibrillation with rapid ventricular response 80-year-old female, who presented to the emergency department, at about 9:00 PM, on December 30. She apparently was having palpitations and a rapid heartbeat. She thought her atrial fibrillation was likely out of control. The patient sees Dr. 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 The patient apparently had a cardioversion about a year ago, but because of ongoing issues with atrial fibrillation, she was scheduled for an ablation on January 27. She doesn't think she can wait because of the shortness of breath that she has when her atrial fibrillation is out of control. She had echocardiogram which showed evidence of pulmonary hypertension, probably secondary in nature and not primary pulmonary hypertension. He does not have a history of any underlying lung disease. She specifically denies any COPD, emphysema, asthma, chronic bronchitis, or any other lung issue. She is a lifelong nonsmoker. She does have history of hypertension, and hyperlipidemia, as well as atrial fibrillation, and also suffers from osteoporosis. Echocardiogram revealed evidence of a low to normal ejection fraction of 50-55%, as well as a estimated right ventricular systolic pressure of 62 mmHg. In addition, there is evidence of trace to mild pulmonary regurgitation, as well as some moderate tricuspid regurgitation, all going along with what we would typically see with pulmonary hypertension of any cause. Chest x-ray shows some diffuse interstitial changes, and some fluid in the minor fissure, consistent with mild interstitial edema. In addition, the N-terminal proBNP was elevated at 4300, and 6150 on repeat evaluation. The mild pulmonary venous hypertension and interstitial edema relates to her atrial fibrillation with rapid ventricular response. Currently, she is on 2 L nasal cannula, and a Cardizem drip at 10 mg an hour. Labs are reviewed. Sodium potassium chloride CO2 all normal. Anion gap was 9, BUN is 22 with a creatinine of 1.11. White count 13.5, with a normal hemoglobin, hematocrit, and platelet count. The patient is seen today 01/02/2021 in follow-up on the selective care unit. She is currently sitting up in a chair at the bedside. Awake and alert in no acute distress. She did undergo cardioversion with Dr. Narvaez yesterday. Remains on antiarrhythmics. Remains in sinus rhythm. Chest x-ray reveals improving interstitial edema. She is maintaining good O2 saturation in the 90s on room air. Afebrile. Hemodynamically stable. White count 8.3. Hemoglobin 10.6. Sodium 136. Creatinine 1.38. Glucose 117. She remains anticoagulated with Eliquis. Objective - Vital Signs Vital signs: Vital Signs Temp 97.7 F 01/02/21 03:49 Pulse 140 H 01/01/21 08:00 Resp 16 01/02/21 03:49 BP 111/73 01/02/21 03:49 Pulse Ox 92 L 01/02/21 03:49 Intake & Output 01/01/21 01/02/21 01/02/21 18:59 06:59 18:59 Intake Total 197 150 240 Balance 197 150 240 Weight 84 kg Intake: IV 30 Invasive Line 2 30 Intake, IV Titration 49 Amount Diltiazem 125 mg In 49 Sodium Chloride 0.9% 100 ml @ 5 MG/HR 5 mls/hr IV .Q24H [facility] Rx#:[id number] Oral 118 150 240 Other: # Voids 2 1 - Exam Awake, alert, pleasant 80-year-old female patient. No acute distress, oriented 3. Currently on room air, with saturations of 92%. HEENT examination is grossly unremarkable. Neck supple. Full range of motion. No adenopathy thyromegaly or neck vein di stention. Cardiovascular examination reveals an irregular rhythm and rate. S1-S2 normal. No S3 or S4. No discernible murmur noted. Lungs reveal mostly clear breath sounds. No wheezes or significant crackles. Breath sounds equal bilaterally. The exam is mostly normal. Abdomen soft bowel sounds are heard. No masses or tenderness. Extremities are intact. No cyanosis clubbing or edema. Skin is without rash or lesion. Neurologic examination is brief but nonfocal. - Labs CBC & Chem 7: 01/02/21 07:10 01/02/21 07:10 Labs: Abnormal Lab Results - Last 24 Hours (Table) 01/01/21 01/01/21 01/02/21 Range/Units 10:43 10:43 07:10 WBC 13.5 H (3.8-10.6) k/uL RBC 3.34 L (3.80-5.40) m/uL Hgb 10.6 L (11.4-16.0) gm/dL Hct 32.5 L (34.0-46.0) % Sodium (137-145) mmol/L BUN 22 H (7-17) mg/dL Creatinine 1.11 H (0.52-1.04) mg/dL Glucose 120 H (74-99) mg/dL Calcium (8.4-10.2) mg/dL Total Protein 5.9 L (6.3-8.2) g/dL Albumin (3.5-5.0) g/dL 01/02/21 Range/Units 07:10 WBC (3.8-10.6) k/uL RBC (3.80-5.40) m/uL Hgb (11.4-16.0) gm/dL Hct (34.0-46.0) % Sodium 136 L (137-145) mmol/L BUN 30 H (7-17) mg/dL Creatinine 1.38 H (0.52-1.04) mg/dL Glucose 117 H (74-99) mg/dL Calcium 8.3 L (8.4-10.2) mg/dL Total Protein 5.5 L (6.3-8.2) g/dL Albumin 3.1 L (3.5-5.0) g/dL Assessment and Plan Assessment: Pulmonary hypertension, likely secondary, to both hypertension, and chronic atrial fibrillation. No evidence to suspect underlying pulmonary disease. Right-sided valvular regurgitation, secondary to pulmonary hypertension. Chronic atrial fibrillation, status post cardioversion yesterday with anticipated ablation, on January 27 of this year. History of hypertension. History of hyperlipidemia. History of osteoporosis. History of arthritis. Plan: The patient was seen and evaluated by Dr. Mott Cleared for discharge from the pulmonary standpoint Follow-up in the office for pulmonary workup regarding the pulmonary hy pertension I, the cosigning physician, performed a history & physical examination of the patient. Lungs sounds are clear. Maintaining good O2 saturations in the 90s on room air. I discussed the assessment and plan of care with my nurse practitioner, Mattie Crooks. I attest to the above note as dictated by her.
[2021-01-02 11:02] VITALS: BP 114/74; PULSE 70
--- NOTE | 2021-01-02 11:51 | PN ---
PROGRESS NOTE Mrs. Colon is an 80-year-old female with a history of paroxysmal atrial fibrillation, status post cardioversion, who had recurrent atrial fibrillation with rapid ventricular response. She has been evaluated by Dr. Narvaez and was scheduled to undergo ablation on January 27, but she came in with atrial fibrillation with rapid ventricular response that was difficult to control. Yesterday she had cardioversion with spiritism of sinus mechanism. She continues to be in sinus mechanism at this time. She is feeling well. She denies any dizziness or palpitation. She is ambulating without difficulty. She continues to be on Eliquis 5 mg twice a day, Lipitor 20 mg daily, flecainide 25 mg twice a day, losartan 75 mg twice a day, metoprolol tartrate 50 in the morning, 25 in the afternoon, and Dyazide. PHYSICAL EXAMINATION: Blood pressure is running in the 110s with a heart rate in the 80s. LUNGS: Clear. HEART: Regular rate and rhythm. S1, S2. No S3. No rub. ABDOMEN: Soft, nontender. EXTREMITIES: No edema. IMPRESSION: 1. Atrial fibrillation, status post cardioversion and spiritism of normal sinus rhythm. 2. Hypertension. 3. Hyperlipidemia. RECOMMENDATIONS: The patient should be able to be discharged home soon and followed on as an outpatient with Dr. Narvaez and proceed with ablation as planned. MMODL / IJN: [id number] /
== END 2021-01-02 12:30 | disposition home or self-care (01) | DRG 309 ==
LOC: EC 21:01 → 3SCARD 23:30
PROVIDERS: ADMIT Internal Medicine Geriatric Medicine; ATTEND Internal Medicine Geriatric Medicine
PROC: 5A2204Z Restoration of Cardiac Rhythm, Single (ICD-10-PCS; principal; 2021-01-01 10:50)
DX: I48.0 Paroxysmal atrial fibrillation (principal); N39.0 Urinary tract infection, site not specified; Z20.822 Contact with and (suspected) exposure to COVID-19; E78.5 Hyperlipidemia, unspecified; I48.19 Other persistent atrial fibrillation; I08.8 Other rheumatic multiple valve diseases; I10 Essential (primary) hypertension; I27.20 Pulmonary hypertension, unspecified; J84.10 Pulmonary fibrosis, unspecified; M15.9 Polyosteoarthritis, unspecified; M81.0 Age-related osteoporosis without current pathological fracture; R09.02 Hypoxemia; Z79.01 Long term (current) use of anticoagulants; Z79.899 Other long term (current) drug therapy; Z88.8 Allergy status to other drugs, medicaments and biological substances
CPT/HCPCS: 36415; 71046; 80053; 80061; 81001; 82550; 83605; 83735; 83880; 84100; 84443; 84484; 85025; 85027; 85610; 85730; 92960; 93005; 93306; 96365; 96366; 96375; 99285

== ENCOUNTER → 2021-01-14 | Outpatient (CLI) | payer MEDICARE ==
[2021-01-14 08:26] LABS: Potassium 4.1 mmol/L (3.5-5.1)
[2021-01-14 08:45] LABS: HCT 39.7 % (34.0-46.0); HGB 13.4 gm/dL (11.4-16.0); MCH 32.4 pg (25.0-35.0); MCHC 33.8 g/dL (31.0-37.0); Mean Platelet Volume 7.4; Platelet Count 288 k/uL (150-450); RBC 4.14 m/uL (3.80-5.40); RDW 13.5 % (11.5-15.5); WBC 7.3 k/uL (3.8-10.6)
== END | disposition home or self-care (01) ==
LOC: LABPAT 07:08
PROVIDERS: ATTEND Internal Medicine Clinical Cardiac Electrophysiology
DX: Z01.812 Encounter for preprocedural laboratory examination (principal); I48.11 Longstanding persistent atrial fibrillation
CPT/HCPCS: 36415; 80051; 82565; 84520; 85027

== ENCOUNTER 2021-01-27 11:54 | Inpatient (IN) | payer MEDICARE ==
[2021-01-20 16:19] VITALS: BMI 26.6
[~2021-01-27 11:54] MED LIST changes: +ALBUMIN HUMAN 25% 50 ML in EMPTY BAG 1 BAG IVPB ONE; +ALBUMIN HUMAN 5% 500 ML in EMPTY BAG 1 BAG IVPB ONE; +CALCIUM CHLORIDE 100 MG/ML 10 ML SYRINGE IVP ONE; +CHLORHEXIDINE GLUCONATE 15 ML CUP MUCOUS MEM ONE; +CLEVIDIPINE BUTYRATE 25 MG in EMPTY BAG 1 BAG IV SCH; +ELECTROLYTE-A SOLUTION 1,000 ML with POTASSIUM CHLORIDE 100 MEQ, MAGNESIUM SULFATE 16 M... IV ONE; +ELECTROLYTE-A SOLUTION 1,000 ML with POTASSIUM CHLORIDE 40 MEQ, MAGNESIUM SULFATE 16 ME... IV ONE; +HEPARIN SODIUM 1,000 UN/ML (10ML VL) IV ONE; +HEPARIN SODIUM,PORCINE 5,000 UNIT in SODIUM CHLORIDE 0.9% 500 ML 500 ML IV ONE; +INSULIN REGULAR 100 UNIT in SODIUM CHLORIDE 0.9% 100 ML IV ONE; -LIDOCAINE 1% (10MG/ML) FOR IV START INTRADERMA PRN; +MAGNESIUM SULFATE SYG 4.06 MEQ/ML SYRINGE IV ONE; +MANNITOL 25% 12.5 GM/50 ML VIAL IV ONE; +NITROGLYCERIN-D5W PMX 25 MG/250 ML BTL IV ONE; +NITROGLYCERIN-D5W PMX 50 MG in DEXTROSE/WATER 1 250ML.BAG IV SCH; +NOREPINEPHRINE 4 MG in SODIUM CHLORIDE 0.9% 250 ML IV ONE; +PAPAVERINE 360 MG in SODIUM CHLORIDE 0.9% 90 ML IV ONE; +PHENYLEPHRINE 10 MG/ML VIAL IV ONE; +PHENYLEPHRINE 40 MG in SODIUM CHLORIDE 0.9% 250 ML IV ONE; +PROTAMINE SULFATE 10 MG/ML 25 ML VIAL IV ONE; +PROTAMINE SULFATE 250 MG in EMPTY BAG 1 BAG IV ONE; +SODIUM BICARB 8.4% 50 ML SYR (1 MEQ/ML) IV ONE; +TRANEXAMIC ACID 2,000 MG in SODIUM CHLORIDE 0.9% 80 ML IV ONE; +ceFAZolin 1,000 MG in SODIUM CHLORIDE 0.9% IRRIGATIO 1,000 ML IRRIGATION ONE
[2021-01-27] MEDS ORDERED: SODIUM CHLORIDE 0.9% 1,000 ML IV ONE ×4 (12:19→19:11)
[2021-01-27] MEDS ORDERED: LIDOCAINE 1% INJ 10MG/ML (20 ML MDV) ONE ×2 (13:59→14:00)
[2021-01-27] MEDS ORDERED: DEXAMETHASONE SOD PHOSPHATE 4 MG/ML 1 ML VIAL ONE (14:00)
[2021-01-27] MEDS ORDERED: PHENYLEPHRINE-0.9% NACL SYG 1,000 MCG/10 ML SYRINGE ONE (14:00)
[2021-01-27] MEDS ORDERED: SODIUM CHLORIDE 0.9% 100 ML BAG ONE (14:00)
[2021-01-27] MEDS ORDERED: fentaNYL (PF) 50 MCG/ML 2 ML AMP ONE (14:00)
[2021-01-27] MEDS ORDERED: ceFAZolin 1,000 MG VIAL ONE (14:00)
[2021-01-27] MEDS ORDERED: ROCURONIUM 10 MG/ML (5 ML VIAL) IV ONE (14:00)
[2021-01-27] MEDS ORDERED: SUCCINYLCHOLINE CHLORIDE 100 MG/5 ML SYR IV ONE (14:00)
[2021-01-27] MEDS ORDERED: ePHEDrine SULFATE/0.9% NACL/PF 50 MG/5 ML SYRINGE IV ONE (14:00)
[2021-01-27] MEDS ORDERED: HEPARIN SODIUM,PORCINE 10,000 UNIT/ML 1 ML VIAL ONE (14:00)
[2021-01-27] MEDS ORDERED: GLYCOPYRROLATE 0.2 MG/ML 2 ML VIAL ONE (14:00)
[2021-01-27] MEDS ORDERED: MIDAZOLAM 2 MG/2 ML VIAL ONE ×2 (14:00→19:37)
[2021-01-27] MEDS ORDERED: PROPOFOL 10 MG/ML 20 ML VIAL IV ONE (14:00)
[2021-01-27] MEDS ORDERED: ONDANSETRON 4 MG/2 ML VIAL ONE (14:00)
[2021-01-27] MEDS ORDERED: LIDOCAINE 1% INJ 10MG/ML (20 ML MDV) SQ ONE (14:50)
[2021-01-27] MEDS ORDERED: HEPARIN SOD,PORK IN 0.45% NACL 25,000 UNIT in 0.45% NACL 1 250ML.BAG IV ONE (14:53)
[2021-01-27] MEDS ORDERED: Kcentra PER PHARMACY 1 EACH MISC MISCELLANE PRN (16:54)
[2021-01-27] MEDS ORDERED: EMPTY BAG 1 BAG with HUMAN PROTHROMBIN COMPLX 2,000 UNIT IV STA (16:59)
[2021-01-27] MEDS ORDERED: HUMAN PROTHROMBIN COMPLX IV STA (17:00)
[2021-01-27] MEDS ORDERED: IOPAMIDOL-370 100ML BTL INJ ONE (17:05)
[2021-01-27] MEDS ORDERED: CLEVIDIPINE BUTYRATE 25 MG in EMPTY BAG 1 BAG IV ONE (18:07)
--- NOTE | 2021-01-27 18:15 | P.GSCN ---
<Farheen Hong - Last Filed: 01/27/21 18:08> History of Present Illness Consult date: 01/27/21 Reason for Consult: Pericardial effusion Requesting physician: Víctor Narvaez History of present illness: This is an 80-year-old patient who follows on an outpatient basis with Dr. Stuart for primary care. She has a previous medical history of hypertension, paroxysmal atrial fibrillation on Eliquis for anticoagulation along with sick sinus syndrome, never smoker, and family history of strokes. She presented today to the hospital for elective pulmonary vein isolation for treatment of her paroxysmal atrial fibrillation. During the procedure she developed pericardial effusion, pericardial drain was placed and patient has had approximately 750 mL drainage so far. The patient is intubated, ANABEL in place. The patient continues to have buildup of effusion. Dr. Ward was contacted by Dr. Narvaez for possibility of emergent pericardial effusion. Of note the patient did have Eliquis this morning. Review of Systems Review of systems unable to be obtained as patient is intubated Past Medical History Past Medical History: Atrial Fibrillation, GERD/Reflux, Hyperlipidemia, Hy pertension, Osteoarthritis (OA) Additional Past Medical History / Comment(s): OSTEOPOROSIS. see DR Narvaez H & P History of Any Multi-Drug Resistant Organisms: None Reported Past Surgical History: Joint Replacement, Orthopedic Surgery, Tonsillectomy, Tubal Ligation Additional Past Surgical History / Comment(s): laxmi knee replacements, cardioversion Past Anesthesia/Blood Transfusion Reactions: No Reported Reaction Smoking Status: Never smoker Past Alcohol Use History: None Reported Past Drug Use History: None Reported - Past Family History Father Family Medical History: Cancer, CVA/TIA Additional Family Medical History / Comment(s): Father at age 80 from bladder cancer, with history of CVA. Mother Family Medical History: Myocardial Infarction ([place]) Additional Family Medical History / Comment(s): Mother at age 42 from a myocardial infarction. Brother(s) Family Medical History: Blood Disorder, CVA/TIA Additional Family Medical History / Comment(s): Patient was 4 brothers and one has history of factor V, 3 have had strokes. Patient 6 sisters with no major medical problems. Patient has one son 49 years of age with no major medical problems. Patient also has one adopted daughter. Medications and Allergies Home Medications Medication Instructions Recorded Confirmed Type Multivitamins, Thera [Multivitamin 1 tab PO DAILY 03/14/18 01/27/21 History (formulary)] Calcium Carb/Vitamin D3/Vit K1 1 tab PO DAILY 08/27/19 01/27/21 History [Citracal-D3 500 mg Soft Chew] Apixaban [Eliquis] 5 mg PO BID #60 tab 08/30/19 01/27/21 Rx Olmesartan [Benicar] 20 mg PO BID 09/21/19 01/27/21 History Omeprazole [PriLOSEC] 40 mg PO AC-BRKFST 09/21/19 01/27/21 History Cholecalciferol (Vitamin D3) 125 mcg PO DAILY 12/30/20 01/27/21 History [Vitamin D3 (125 MCG = 5,000 IU)] Flecainide [Tambocor] 25 mg PO BID 12/30/20 01/27/21 History Magnesium 250 mg PO DAILY 12/30/20 01/27/21 History Rosuvastatin [Crestor] 10 mg PO DAILY 12/30/20 01/27/21 History Triamterene-Hctz 37.5-25Mg 1 cap PO DAILY 12/30/20 01/27/21 History [Dyazide 37.5-25 Capsule] Metoprolol Tartrate [Lopressor] 25 mg PO BID 01/20/21 01/27/21 History Allergies Allergy/AdvReac Type Severity Reaction Status Date / Time contact metal agent Allergy Unknown Unknown Verified 01/27/21 12:27 nickel Allergy burning, Verified 01/27/21 12:27 pain Surgical - Exam Vital Signs Temp Pulse Resp BP Pulse Ox 98 F 49 L 16 143/65 98 01/27/21 12:45 01/27/21 12:45 01/27/21 12:45 01/27/21 12:45 01/27/21 12:45 CONSTITUTIONAL: Remains intubated and sedated RESPIRATORY: Lungs sounds clear to auscultation bilaterally. Respirations even, nonlabored on mechanical ventilation. Currently on 60% FiO2 with a PEEP of 8 CARDIOVASCULAR: S1, S2 present. Regular rate and rhythm, sinus rhythm on telemetry. Palpable peripheral pulses bilaterally. No edema present. Pericardial drain present with 750 mL blood removed so far GASTROINTESTINAL: Abdomen soft, nontender, nondistended without masses or organomegaly noted. There is no rebound or guarding present. Active bowel sounds present 4 quadrants. GENITOURINARY: Deferred INTEGUMENTARY: Skin is warm and dry with evidence of good perfusion. NEUROLOGIC: Remains intubated and sedated MUSKULOSKELETAL: Remains intubated and sedated Results - Labs Abnormal Lab Results - Last 24 Hours (Table) 01/27/21 Range/Units 16:54 Crossmatch See Detail Assessment and Plan Assessment: 1. Pericardial effusion with removal of 750 mL blood 2. History of paroxysmal atrial fibrillation on Eliquis for anticoagulation, last dose this morning, currently here for pulmonary vein isolation 3. History of hypertension 4. Family history of CVA 5. Never smoker Plan: The patient was seen and examined on the EP table. She remains intubated and sedated and being managed by anesthesia. The case was discussed in detail numerous times between Dr. Narvaez and Dr. Ward. Dr. Ward is on his way in to assess the patient, likely will go to the OR for pericardial window. Discussion was had with the family including but not limited to the possibility of needing open heart surgery. Risks and benefits were reviewed, all questions were answered. Type and crossmatch has been completed. More recommendations to follow. Thank you Dr. Narvaez for this consult Time with Patient: Greater than 30 <Luis Carlos Ward - Last Filed: 01/27/21 21:11> Surgical - Exam Vital Signs Temp Pulse Resp BP Pulse Ox 98 F 49 L 16 143/65 98 01/27/21 12:45 01/27/21 12:45 01/27/21 12:45 01/27/21 12:45 01/27/21 12:45 Results - Labs 01/27/21 18:20 Abnormal Lab Results - Last 24 Hours (Table) 01/27/21 01/27/21 01/27/21 Range/Units 16:54 18:20 20:05 WBC 13.3 H (3.8-10.6) k/uL ABG pH 7.31 L (7.35-7.45) ABG pO2 204 H (83-108) mmHg ABG HCO3 18 L (21-25) mmol/L ABG O2 Saturation 99.7 H (94-97) % ABG Ionized Calcium 4.1 L (4.5-5.3) mg/dL ABG Glucose 185 H (75-99) mg/dL ABG Lactic Acid 3.6 H* (0.5-1.6) mmol/L Arterial Blood Glucose 185 H (75-99) mg/dL Crossmatch See Detail Assessment and Plan Plan: The patient was seen and examined. I agree with the above assessment and plan. The patient is an 80 year old female who was undergoing elective pulmonary vein isolation secondary to atrial fibrillation with Dr. Wong this afternoon when she was noted to have increasing pericardial effusion. Pericardiocentesis was performed with evacuation of 750 cc of fresh blood. Echocardiogram confirmed residual clot in the pericardial space. Emergent pericardial window with possible sternotomy for control of bleeding was recommended.
[2021-01-27 18:20] LABS: Basophils % (A) 0 %; Eosinophils % (A) 1 %; HCT 35.8 % (34.0-46.0); HGB 12.5 gm/dL (11.4-16.0); Lymphocytes # (A) 1.3 k/uL (1.0-4.8); Lymphocytes % (A) 21 %; MCH 32.3 pg (25.0-35.0); MCV 92.4 fL (80.0-100.0); Mean Platelet Volume 10.1; Monocytes # (A) 0.2 k/uL (0-1.0); Monocytes % (A) 3 %; Neutrophils # (A) 4.8 k/uL (1.3-7.7); Neutrophils % (A) 76 %; Platelet Count 156 k/uL (150-450); RBC 3.88 m/uL (3.80-5.40); RDW 12.3 % (11.5-15.5); WBC 6.4 k/uL (3.8-10.6)
[2021-01-27 18:29] LABS: HCT 38.5 % (34.0-46.0); HGB 12.6 gm/dL (11.4-16.0); MCH 29.8 pg (25.0-35.0); MCHC 32.7 g/dL (31.0-37.0); MCV 91.3 fL (80.0-100.0); Mean Platelet Volume 8.5; Platelet Count 152 k/uL (150-450); RBC 4.22 m/uL (3.80-5.40); RDW 14.3 % (11.5-15.5); WBC 13.3 k/uL (3.8-10.6)
[2021-01-27] MEDS ORDERED: LACTATED RINGERS 1,000 ML IV ONE (19:59)
[2021-01-27 20:02] LABS: ABG Base Excess -7.3 mmol/L; ABG Glucose Whole Blood 185 mg/dL (75-99); ABG HCO3 18 mmol/L (21-25); ABG Hematocrit 38 % (34.0-46.0); ABG Ionized Calcium 4.1 mg/dL (4.5-5.3); ABG Oxygen Saturation 99.7 % (94-97); ABG PCO2 36 mmHg (35-45); ABG PH 7.31 (7.35-7.45); ABG PO2 204 mmHg (83-108); ABG Potassium Whole Blood 3.8 mmol/L (3.4-4.5); ABG Sodium Whole Blood 139 mmol/L (135-146); ABG TCO2 19 mmol/L (19-24)
[2021-01-27] MEDS ORDERED: ONDANSETRON 4 MG/2 ML VIAL IVP PRN (20:35)
[2021-01-27] MEDS ORDERED: NALOXONE 0.4 MG/ML 1 ML VIAL IV PRN (20:35)
[2021-01-27 20:48] LABS: ABG Lactic Acid Whole Blood 3.6 mmol/L (0.5-1.6)
[2021-01-27] MEDS ORDERED: ACETAMINOPHEN IV (For NPO) 1,000 MG in EMPTY BAG 1 BAG IVPB ONE (21:00)
[2021-01-27 21:13] LABS: Glucose,Whole Blood 174 mg/dL (75-99)
[2021-01-27 21:17] LABS: Basophils % (A) 0 %; Eosinophils % (A) 0 %; HCT 38.1 % (34.0-46.0); HGB 13.1 gm/dL (11.4-16.0); Lymphocytes # (A) 0.8 k/uL (1.0-4.8); Lymphocytes % (A) 6 %; MCHC 34.4 g/dL (31.0-37.0); MCV 90.3 fL (80.0-100.0); Mean Platelet Volume 8.2; Monocytes # (A) 0.2 k/uL (0-1.0); Monocytes % (A) 2 %; Neutrophils # (A) 11.4 k/uL (1.3-7.7); Neutrophils % (A) 91 %; Platelet Count 117 k/uL (150-450); RBC 4.22 m/uL (3.80-5.40); RDW 14.8 % (11.5-15.5); WBC 12.5 k/uL (3.8-10.6)
--- NOTE | 2021-01-27 21:22 | OP ---
OPERATIVE REPORT DATE OF SURGERY: 01/27/2021 PREOPERATIVE DIAGNOSIS: Hemopericardium. POSTOPERATIVE DIAGNOSIS: Hemopericardium. PROCEDURE: 1. Pericardial window. 2. Transesophageal echocardiogram. SURGEON: Luis Carlos Ward M.D. HEALTH EDUCATION TEACHER: ALEJANDRA Berrios. ANESTHESIA: General. SPECIMEN: Pericardial tissue. COMPLICATIONS: None. INDICATION: The patient is an 80-year-old female who was undergoing pulmonary vein isolation secondary to atrial fibrillation, [facility], with Dr. Narvaez in the EP lab earlier this afternoon when she developed hemopericardium, confirmed by intracardiac echo. Pericardiocentesis was performed with return of approximately 750 mL of blood. Surface echocardiogram was performed and revealed a circumferential pericardial effusion consistent with hemopericardium. Emergent pericardial window was requested. FINDINGS: The patient was hemodynamically stable upon arrival to the operating room. Transesophageal echocardiogram confirmed the presence of hemopericardium. Clot was evacuated from around the left and right ventricles. PROCEDURE IN DETAIL: The patient was taken to the operating room and placed supine on the operating table. After the induction of general anesthesia, she was prepped and draped in the usual sterile fashion. She remained hemodynamically stable throughout this process. Transesophageal echocardiogram was performed which revealed a preserved ejection fraction with good RV function. There were no signs of tamponade per echocardiogram. There was an effusion noted circumferentially around the heart, which was consistent with hemopericardium. A vertical midline incision was created in the epigastric region. The xiphoid process was identified and excised. Dissection was carried down through the subcutaneous tissue. The pericardium was identified. A small incision was created using a scalpel. Approximately 100 mL of fresh blood was evacuated. A small segment of the pericardial tissue was excised. A portion was sent to Microbiology and the remainder sent to Pathology. A fair amount of clot was noted surrounding the left and right ventricle. This was evacuated using ringed forceps. There was no significant ongoing bleeding noted. Using a separate stab incision, a 32-Indonesian right-angle chest tube was placed and directed into a retrocardiac position. It was secured to the skin using a suture. Hemostasis was assured. The wound was then closed in multiple layers. A sterile dressing was applied. The patient appeared to tolerate the procedure well. There were no immediate complications. She remained hemodynamically stable throughout the case. Follow-up transesophageal echocardiogram confirmed evacuation of the majority of pericardial fluid and clot. She remained intubated at the completion of the case and returned to the ICU in critical but stable condition. CHIARA / DES: [id number] / ADALBERTO
[2021-01-27 21:26] LABS: Albumin 2.7 g/dL (3.5-5.0); Calcium 7.4 mg/dL (8.4-10.2); Potassium 3.5 mmol/L (3.5-5.1); Total Bilirubin 1.5 mg/dL (0.2-1.3)
--- NOTE | 2021-01-27 22:04 | XR ---
EXAMINATION TYPE: XR chest 1V portable DATE OF EXAM: 01/27/2021 COMPARISON: 01/01/2021. HISTORY: Tube placement. TECHNIQUE: Single frontal view of the chest is obtained. FINDINGS: There is demonstration of an endotracheal tube terminating approximately 3.1 cm above the jabari. There is also placement of nasogastric tube coursing below the diaphragm and tip not included in [id number]. There is mild left perihilar and basilar opacity with probable trace pleural effus ion. No pneumothorax seen. The cardiac silhouette size is within normal limits. The osseous struct ures are intact. IMPRESSION: Status post support apparatus as above. Mild left-sided opacities with probable trace pleural effusion. No pneumothorax.
[2021-01-27] MEDS: LOSARTAN 50 MG TAB PO SCH (22:40)
[2021-01-27] MEDS: FLECAINIDE 50 MG TAB PO SCH (22:41)
[2021-01-27] MEDS: METOPROLOL TARTRATE 25 MG TAB PO SCH (22:41)
[2021-01-28] MEDS: HEPARIN SODIUM,PORCINE/PF 5,000 UNIT/0.5 ML SYRINGE SQ SCH ×3 (00:57→17:34)
[2021-01-28 04:56] LABS: Basophils % (A) 0 %; Eosinophils % (A) 0 %; HCT 37.1 % (34.0-46.0); HGB 12.6 gm/dL (11.4-16.0); Lymphocytes # (A) 0.6 k/uL (1.0-4.8); Lymphocytes % (A) 6 %; MCH 30.3 pg (25.0-35.0); MCHC 34.1 g/dL (31.0-37.0); MCV 89.1 fL (80.0-100.0); Mean Platelet Volume 8.1; Monocytes # (A) 0.3 k/uL (0-1.0); Monocytes % (A) 3 %; Neutrophils % (A) 91 %; Platelet Count 157 k/uL (150-450); RBC 4.17 m/uL (3.80-5.40); RDW 15.6 % (11.5-15.5); WBC 9.9 k/uL (3.8-10.6)
[2021-01-28 05:09] LABS: ABG Base Excess -4.4 mmol/L; ABG HCO3 21 mmol/L (21-25); ABG Oxygen Saturation 98.7 % (94-97); ABG PCO2 34 mmHg (35-45); ABG PH 7.39 (7.35-7.45); ABG PO2 112 mmHg (83-108); ABG TCO2 22 mmol/L (19-24); Allen Test Performed? Yes
[2021-01-28 05:12] LABS: INR 1.1 (<1.2)
[2021-01-28 05:13] LABS: Prothrombin Time 11.2 sec (9.0-12.0)
[2021-01-28 05:37] LABS: Albumin 2.6 g/dL (3.5-5.0); Calcium 7.7 mg/dL (8.4-10.2); Total Bilirubin 0.7 mg/dL (0.2-1.3); Total Protein 4.7 g/dL (6.3-8.2)
[2021-01-28 07:04] LABS: Glucose,Whole Blood 134 mg/dL (75-99)
--- NOTE | 2021-01-28 07:15 | XR ---
EXAMINATION TYPE: XR chest 1V portable DATE OF EXAM: 01/28/2021 COMPARISON: 01/27/2021 HISTORY: SOB, Follow Up FINDINGS: Indwelling tubes and catheters are unchanged. No change in bibasilar opacities. Stable appearance of the cardio-mediastinal structures at this time. Pleural effusion unchanged. IMPRESSION: 1. Stable portable chest. Clinical correlation and follow up until resolution is recommended.
--- NOTE | 2021-01-28 07:47 | P.PN ---
Subjective Progress Note Date: 01/28/21 Principal diagnosis: Hemopericardium with removal of 750 mL blood in the EP lab. Medical history of paroxysmal atrial fibrillation on Eliquis for anticoagulation along with sick s inus syndrome, hypertension, hyperlipidemia, never smoker, family history of strokes and premature coronary artery disease with mother at 42 years old from myocardial infarction POD #1 pericardial window with ANABEL The patient was seen and examined this morning in the intensive care unit in no acute distress. She remains on mechanical ventilation after surgery, she does open her eyes and follows commands, able to move all 4 extremities. She underwent pericardial window yesterday, mediastinal chest drain in place with total 130 mL bloody drainage since surgery. Remains in sinus rhythm and hemodynamically stable on no pressors. No new concerns. Objective - Vital Signs Vital signs: Vital Signs Temp 99.0 F 01/28/21 04:00 Pulse 89 01/28/21 07:00 Resp 16 01/28/21 07:00 BP 102/58 01/28/21 06:00 Pulse Ox 97 01/28/21 07:00 Intake & Output 01/27/21 01/28/21 01/28/21 18:59 06:59 18:59 Intake Total 1635 3772.600 20 Output Total 916 45 Balance 1635 2856.600 -25 Weight 70.5 kg 78.5 kg Intake: IV 1050 3650 20 KVO 200 20 Intake, IV Titration 122.600 Amount propofoL 1,000 mg In 122.600 Empty Bag 1 bag @ Titrate IV .Q0M [facility] Rx#: [id number] Blood Product 585 Rc As-1 Unit 310 [id number] Rc Pheresis As3 Unit 275 [id number] Output: Chest Tube Drainage 103 10 Chest Tube 103 10 Urine 713 35 Estimated Blood Loss 100 Other: Voiding Method Indwelling Catheter ABP, PAP, CO, CI - Last Documented Arterial Blood Pressure 115/53 - Exam CONSTITUTIONAL: Appears comfortable, no acute distress RESPIRATORY: Lungs sounds diminished bilaterally. Respirations even, nonlabored on mechanical ventilation with current ventilator settings FiO2 40%, PEEP 5, tidal volume 450, respiratory rate 10. CARDIOVASCULAR: S1, S2 present. Regular rate and rhythm, sinus rhythm on telemetry. Palpable peripheral pulses bilaterally. No edema present. GASTROINTESTINAL: Abdomen soft, nontender, nondistended. Active bowel sounds present 4 quadrants. OG tube present to wall suction GENITOURINARY: Thomas present draining clear, yellow urine. Output overnight 30-40 mL per hour INTEGUMENTARY: Skin is warm and dry. Surgical incision well approximated and covered with dry intact dressing NEUROLOGIC: Cranial nerves II through XII intact MUSKULOSKELETAL: Able to move all extremities, strength equal bilaterally PSYCHIATRIC: Currently sedated with propofol although she does open her eyes and follows commands INVASIVE LINES AND TUBES: Mediastinal chest tubes present and connected to wall suction, no air leaks present, 80 mL bloody drainage overnight, 130 mL in the last 24 hours. - Allied health notes Allied health notes reviewed: nursing - Labs CBC & Chem 7: 01/28/21 04:20 01/28/21 04:20 Labs: Abnormal Lab Results - Last 24 Hours (Table) 01/27/21 01/27/21 01/27/21 Range/Units 16:54 18:20 20:05 WBC 13.3 H (3.8-10.6) k/uL RDW (11.5-15.5) % Plt Count (150-450) k/uL Neutrophils # (1.3-7.7) k/uL Lymphocytes # (1.0-4.8) k/uL APTT (22.0-30.0) sec ABG pH 7.31 L (7.35-7.45) ABG pCO2 (35-45) mmHg ABG pO2 204 H (83-108) mmHg ABG HCO3 18 L (21-25) mmol/L ABG O2 Saturation 99.7 H (94-97) % ABG Ionized Calcium 4.1 L (4.5-5.3) mg/dL ABG Glucose 185 H (75-99) mg/dL ABG Lactic Acid 3.6 H* (0.5-1.6) mmol/L Sodium (137-145) mmol/L Chloride (98-107) mmol/L Carbon Dioxide (22-30) mmol/L Glucose (74-99) mg/dL POC Glucose (mg/dL) (75-99) mg/dL Calcium (8.4-10.2) mg/dL Total Bilirubin (0.2-1.3) mg/dL AST (14-36) U/L Total Protein (6.3-8.2) g/dL Albumin (3.5-5.0) g/dL Arterial Blood Glucose 185 H (75-99) mg/dL Crossmatch See Detail 01/27/21 01/27/21 01/27/21 Range/Units 21:01 21:12 21:12 WBC 12.5 H (3.8-10.6) k/uL RDW (11.5-15.5) % Plt Count 117 L (150-450) k/uL Neutrophils # 11.4 H (1.3-7.7) k/uL Lymphocytes # 0.8 L (1.0-4.8) k/uL APTT 32.8 H (22.0-30.0) sec ABG pH (7.35-7.45) ABG pCO2 (35-45) mmHg ABG pO2 (83-108) mmHg ABG HCO3 (21-25) mmol/L ABG O2 Saturation (94-97) % ABG Ionized Calcium (4.5-5.3) mg/dL ABG Glucose (75-99) mg/dL ABG Lactic Acid (0.5-1.6) mmol/L Sodium (137-145) mmol/L Chloride (98-107) mmol/L Carbon Dioxide (22-30) mmol/L Glucose (74-99) mg/dL POC Glucose (mg/dL) 174 H (75-99) mg/dL Calcium (8.4-10.2) mg/dL Total Bilirubin (0.2-1.3) mg/dL AST (14-36) U/L Total Protein (6.3-8.2) g/dL Albumin (3.5-5.0) g/dL Arterial Blood Glucose (75-99) mg/dL Crossmatch 01/27/21 01/28/21 01/28/21 Range/Units 21:12 04:20 04:20 WBC (3.8-10.6) k/uL RDW 15.6 H (11.5-15.5) % Plt Count (150-450) k/uL Neutrophils # 9.0 H (1.3-7.7) k/uL Lymphocytes # 0.6 L (1.0-4.8) k/uL APTT (22.0-30.0) sec ABG pH (7.35-7.45) ABG pCO2 (35-45) mmHg ABG pO2 (83-108) mmHg ABG HCO3 (21-25) mmol/L ABG O2 Saturation (94-97) % ABG Ionized Calcium (4.5-5.3) mg/dL ABG Glucose (75-99) mg/dL ABG Lactic Acid (0.5-1.6) mmol/L Sodium 136 L (137-145) mmol/L Chloride 110 H 109 H (98-107) mmol/L Carbon Dioxide 19 L 19 L (22-30) mmol/L Glucose 176 H 160 H (74-99) mg/dL POC Glucose (mg/dL) (75-99) mg/dL Calcium 7.4 L 7.7 L (8.4-10.2) mg/dL Total Bilirubin 1.5 H (0.2-1.3) mg/dL AST 57 H 46 H (14-36) U/L Total Protein 5.0 L 4.7 L (6.3-8.2) g/dL Albumin 2.7 L 2.6 L (3.5-5.0) g/dL Arterial Blood Glucose (75-99) mg/dL Crossmatch 01/28/21 01/28/21 Range/Units 05:06 07:02 WBC (3.8-10.6) k/uL RDW (11.5-15.5) % Plt Count (150-450) k/uL Neutrophils # (1.3-7.7) k/uL Lymphocytes # (1.0-4.8) k/uL APTT (22.0-30.0) sec ABG pH (7.35-7.45) ABG pCO2 34 L (35-45) mmHg ABG pO2 112 H (83-108) mmHg ABG HCO3 (21-25) mmol/L ABG O2 Saturation 98.7 H (94-97) % ABG Ionized Calcium (4.5-5.3) mg/dL ABG Glucose (75-99) mg/dL ABG Lactic Acid (0.5-1.6) mmol/L Sodium (137-145) mmol/L Chloride (98-107) mmol/L Carbon Dioxide (22-30) mmol/L Glucose (74-99) mg/dL POC Glucose (mg/dL) 134 H (75-99) mg/dL Calcium (8.4-10.2) mg/dL Total Bilirubin (0.2-1.3) mg/dL AST (14-36) U/L Total Protein (6.3-8.2) g/dL Albumin (3.5-5.0) g/dL Arterial Blood Glucose (75-99) mg/dL Crossmatch - Imaging and Cardiology Chest x-ray: report reviewed, image reviewed Assessment and Plan Assessment: 1. Hemopericardium with removal of 750 mL blood by pericardiocentesis in the EP lab, status post pericardial window 2. History of paroxysmal atrial fibrillation on Eliquis for anticoagulation, currently sinus rhythm 3. History of hypertension 4. History of hyperlipidemia 5. Never smoker 6. Family history of CVA and premature coronary artery disease Plan: 1. We will continue to monitor drainage from pericardial drain. 2. Will obtain limited echo today and tomorrow. Once the drainage is minimal and no pericardial effusion is seen on echo we will remove pericardial drain 3. Wean to extubate as tolerated. Encourage incentive spirometry as once extubated 4. Increase activity as tolerated once extubated 5. Continue flecainide and Lopressor, will need to restart Eliquis after chest tube removal per Dr. Narvaez 6. Medical management of other medical comorbidities per Dr. Narvaez 7. More recommendations to follow Time with Patient: Greater than 30
[2021-01-28] MEDS ORDERED: PANTOPRAZOLE 40 MG/10 ML VIAL IV SCH (09:00)
[2021-01-28] MEDS: KETOROLAC 15 MG/ML 1 ML VIAL IVP PRN ×2 (09:35→11:17)
[2021-01-28] MEDS: TRIAMTERENE-HCTZ 37.5-25MG 1 EACH CAP PO SCH (10:19)
[2021-01-28] MEDS: LOSARTAN 50 MG TAB PO SCH ×2 (10:19→21:13)
[2021-01-28] MEDS: ATORVASTATIN 20 MG TAB PO SCH (10:19)
[2021-01-28] MEDS: CHOLECALCIFEROL 25 MCG (1000 IU) TABLET PO SCH (10:19)
[2021-01-28] MEDS: MAGNESIUM OXIDE 400 MG TAB PO SCH (10:19)
[2021-01-28] MEDS: MULTIVITAMINS, THERA 1 EACH TAB PO SCH (10:19)
[2021-01-28] MEDS: METOPROLOL TARTRATE 25 MG TAB PO SCH ×2 (10:20→21:14)
[2021-01-28] MEDS: FLECAINIDE 50 MG TAB PO SCH ×2 (10:20→21:14)
--- NOTE | 2021-01-28 10:57 | ECHOF ---
Referral Reason:POST PERICARDIAL WINDOW MEASUREMENTS -------- HEIGHT: 162.6 cm WEIGHT: 78.5 kg BP: FINDINGS -------- This was a technically difficult study with suboptimal views. Limited Study for effusion. There is a trivial pericardial effusion present. CONCLUSIONS -------- 1. This was a technically difficult study with suboptimal views. 2. Limited Study 3. There is a trivial pericardial effusion present. GARNISHMENT SPECIALIST: Farheen Dasilva RDCS
[2021-01-28 11:40] LABS: Glucose,Whole Blood 148 mg/dL (75-99)
[2021-01-28] MEDS: ACETAMINOPHEN IV (For NPO) 1,000 MG in EMPTY BAG 1 BAG IVPB SCH ×2 (11:54→17:35)
--- NOTE | 2021-01-28 17:48 | P.CNPUL ---
History of Present Illness Consult date: 01/28/21 Chief complaint: Hemopericardium History of present illness: This is a 80-year-old female patient who underwent a pericardial window following that the patient was brought into the intensive care unit and overnight the patient was kept intubated on a mechanical ventilator. Note that the patient has had issues with itching fibrillation. The patient was undergoing EP studies and a fibrillation and the patient was having an elective pulmonary vein isolation at the lab. The patient developed an iatrogenic hemopericardium. This was confirmed by a echocardiogram. Pericardiocentesis was done. Approximately 7 50 mL of blood was aspirated. The patient became somewhat hemodynamically unstable. At that point, she was seen by CT surgery an d the patient was taken for an emergent pericardial window and the surgery was successful and following that the patient was left with a pericardial tube and the patient was brought into the intensive care unit for further management. The patient this morning was on propofol at 25 Zay respiratory failure and per minute. She was a normal sed rate the 50s an hour. She was on no pressors. Cardiac rhythm was sinus. Output from the pericardial tube was in the order 130 mL overnight. The patient was an assist-control mode of mechanical ventilation at the rate of 10 with a tidal volume of 450 and FiO2 of 40% with a PEEP of 5. Peak airway pressure was 24. Static pressure was 19. The patient was taken off sedation. She was given a sedation holiday. She had adequate weaning parameters pH underwent this point is breathing trial and following that she was extubated to room air oxygen. She remains hemodynamically stable for now. Hemoglobin today is at 12.6. Normal renal function. Normal electrolytes. The chest x-ray from today shows no acute cardio pulmonary abnormalities. In dwelling catheters are all in place. Review of Systems ROS unobtainable: due to endotracheal tube Past Medical History Past Medical History: Atrial Fibrillation, GERD/Reflux, Hyperlipidemia, Hypertension, Osteoarthritis (OA) Additional Past Medical History / Comment(s): OSTEOPOROSIS. see DR Narvaez H & P History of Any Multi-Drug Resistant Organisms: None Reported Past Surgical History: Joint Replacement, Orthopedic Surgery, Tonsillectomy, T ubal Ligation Additional Past Surgical History / Comment(s): laxmi knee replacements, cardioversion Past Anesthesia/Blood Transfusion Reactions: No Reported Reaction Smoking Status: Never smoker Past Alcohol Use History: None Reported Past Drug Use History: None Reported - Past Family History Father Family Medical History: Cancer, CVA/TIA Additional Family Medical History / Comment(s): Father at age 80 from bladder cancer, with history of CVA. Mother Family Medical History: Myocardial Infarction ([place]) Additional Family Medical History / Comment(s): Mother at age 42 from a myocardial infarction. Brother(s) Family Medical History: Blood Disorder, CVA/TIA Additional Family Medical History / Comment(s): Patient was 4 brothers and one has history of factor V, 3 have had strokes. Patient 6 sisters with no major medical problems. Patient has one son 49 years of age with no major medical problems. Patient also has one adopted daughter. Medications and Allergies Home Medications Medication Instructions Recorded Confirmed Type Multivitamins, Thera [Multivitamin 1 tab PO DAILY 03/14/18 01/27/21 History (formulary)] Calcium Carb/Vitamin D3/Vit K1 1 tab PO DAILY 08/27/19 01/27/21 History [Citracal-D3 500 mg Soft Chew] Apixaban [Eliquis] 5 mg PO BID #60 tab 08/30/19 01/27/21 Rx Olmesartan [Benicar] 20 mg PO BID 09/21/19 01/27/21 History Omeprazole [PriLOSEC] 40 mg PO AC-BRKFST 09/21/19 01/27/21 History Cholecalciferol (Vitamin D3) 125 mcg PO DAILY 12/30/20 01/27/21 History [Vitamin D3 (125 MCG = 5,000 IU)] Flecainide [Tambocor] 25 mg PO BID 12/30/20 01/27/21 History Magnesium 250 mg PO DAILY 12/30/20 01/27/21 History Rosuvastatin [Crestor] 10 mg PO DAILY 12/30/20 01/27/21 History Triamterene-Hctz 37.5-25Mg 1 cap PO DAILY 12/30/20 01/27/21 History [Dyazide 37.5-25 Capsule] Metoprolol Tartrate [Lopressor] 25 mg PO BID 01/20/21 01/27/21 History Allergies Allergy/AdvReac Type Severity Reaction Status Date / Time contact metal agent Allergy Unknown Unknown Verified 01/27/21 12:27 nickel Allergy burning, Verified 01/27/21 12:27 pain Physical Exam Vitals: Vital Signs Temp Pulse Resp BP Pulse Ox 01/28/21 17:00 93 21 102/65 97 01/28/21 16:00 97.8 F 94 19 108/69 93 L 01/28/21 15:00 76 22 101/59 92 L 01/28/21 14:00 68 26 H 102/62 96 01/28/21 13:00 67 18 96/62 97 01/28/21 12:00 99.1 F 89 28 H 119/73 97 01/28/21 11:00 98 22 104/63 94 L 01/28/21 10:00 92 23 99/59 97 01/28/21 09:00 80 13 103/59 97 01/28/21 08:00 99.1 F 77 12 111/64 96 01/28/21 07:00 89 16 97 01/28/21 06:00 70 13 102/58 96 01/28/21 05:00 81 11 L 94/56 96 01/28/21 04:00 99.0 F 85 15 90/56 95 01/28/21 03:00 100 16 89/56 93 L 01/28/21 02:00 77 11 L 142/91 96 01/28/21 01:00 80 11 L 105/62 99 01/28/21 00:00 95.9 F L 57 L 10 L 141/97 92 L 01/27/21 23:00 74 14 147/79 93 L 01/27/21 22:00 92.7 F L 69 10 L 138/83 97 01/27/21 21:00 92.3 F L 60 10 L 135/83 96 Intake and Output 01/28/21 01/28/21 01/28/21 06:59 14:59 22:59 Intake Total 282.600 434.842 150 Output Total 312 725 170 Balance -29.400 -290.158 -20 Intake: IV 160 370 150 KVO 160 370 150 Intake, IV Titration 122.600 64.842 Amount propofoL 1,000 mg In 122.600 64.842 Empty Bag 1 bag @ Titrate IV .Q0M [facility] Rx#: [id number] Output: Chest Tube Drainage 79 90 Chest Tube 79 90 Gastric Drainage 300 Urine 233 335 170 Other: Voiding Method Indwelling Catheter Indwelling Catheter Indwelling Catheter Weight 78.5 kg ABP, PAP, CO, CI - Last 8 Hours Arterial Blood Pressure 135/60 Arterial Blood Pressure 124/53 Arterial Blood Pressure 126/57 Arterial Blood Pressure 123/52 Arterial Blood Pressure 120/49 Arterial Blood Pressure 122/50 Arterial Blood Pressure 134/57 Arterial Blood Pressure 115/50 CONSTITUTIONAL: Appears comfortable, no acute distress, intubated on [facility] ventilator. Orogastric and orotracheal tube are both in place. Head exam was generally normal. There was no scleral icterus or corneal arcus. Mucous membranes were moist. Neck was supple and without jugular venous distension, thyromegaly, or carotid bruits. Carotids were easily palpable bilaterally. There was no adenopathy. RESPIRATORY: Lungs sounds diminished bilaterally. Respirations even, nonlabored on mechanical ventilation with current ventilator settings FiO2 40%, PEEP 5, tidal volume 450, respiratory rate 10. CARDIOVASCULAR: S1, S2 present. Regular rate and rhythm, sinus rhythm on telemetry. Palpable peripheral pulses bilaterally. No edema present. GASTROINTESTINAL: Abdomen soft, nontender, nondistended. Active bowel sounds present 4 quadrants. OG tube present to wall suction GENITOURINARY: Thomas present draining clear, yellow urine. Output overnight 30-40 mL per hour INTEGUMENTARY: Skin is warm and dry. Surgical incision well approximated and covered with dry intact dressing NEUROLOGIC: Cranial nerves II through XII intact MUSKULOSKELETAL: Able to move all extremities, strength equal bilaterally PSYCHIATRIC: Currently sedated with propofol although she does open her eyes and follows commands INVASIVE LINES AND TUBES: Mediastinal chest tubes present and connected to wall suction, no air leaks present, 80 mL bloody drainage overnight, 130 mL in the last 24 hours. Results - Laboratory Findings CBC and BMP: 01/28/21 04:20 01/28/21 04:20 ABG ABG pH 7.39 (7.35-7.45) 01/28/21 05:06 ABG pCO2 34 mmHg (35-45) L 01/28/21 05:06 ABG pO2 112 mmHg (83-108) H 01/28/21 05:06 ABG O2 Saturation 98.7 % (94-97) H 01/28/21 05:06 PT/INR, D-dimer PT 11.2 sec (9.0-12.0) 01/28/21 04:20 INR 1.1 (<1.2) 01/28/21 04:20 Abnormal lab findings: Abnormal Labs 01/27/21 01/27/21 01/27/21 16:54 18:20 20:05 WBC 13.3 H RDW Plt Count Neutrophils # Lymphocytes # APTT ABG pH 7.31 L ABG pCO2 ABG pO2 204 H ABG HCO3 18 L ABG O2 Saturation 99.7 H ABG Ionized Calcium 4.1 L ABG Glucose 185 H ABG Lactic Acid 3.6 H* Sodium Chloride Carbon Dioxide Glucose POC Glucose (mg/dL) Calcium Total Bilirubin AST Total Protein Albumin Arterial Blood Glucose 185 H Crossmatch See Detail 01/27/21 01/27/21 01/27/21 21:01 21:12 21:12 WBC 12.5 H RDW Plt Count 117 L Neutrophils # 11.4 H Lymphocytes # 0.8 L APTT 32.8 H ABG pH ABG pCO2 ABG pO2 ABG HCO3 ABG O2 Saturation ABG Ionized Calcium ABG Glucose ABG Lactic Acid Sodium Chloride Carbon Dioxide Glucose POC Glucose (mg/dL) 174 H Calcium Total Bilirubin AST Total Protein Albumin Arterial Blood Glucose Crossmatch 01/27/21 01/28/21 01/28/21 21:12 04:20 04:20 WBC RDW 15.6 H Plt Count Neutrophils # 9.0 H Lymphocytes # 0.6 L APTT ABG pH ABG pCO2 ABG pO2 ABG HCO3 ABG O2 Saturation ABG Ionized Calcium ABG Glucose ABG Lactic Acid Sodium 136 L Chloride 110 H 109 H Carbon Dioxide 19 L 19 L Glucose 176 H 160 H POC Glucose (mg/dL) Calcium 7.4 L 7.7 L Total Bilirubin 1.5 H AST 57 H 46 H Total Protein 5.0 L 4.7 L Albumin 2.7 L 2.6 L Arterial Blood Glucose Crossmatch 01/28/21 01/28/21 01/28/21 05:06 07:02 11:38 WBC RDW Plt Count Neutrophils # Lymphocytes # APTT ABG pH ABG pCO2 34 L ABG pO2 112 H ABG HCO3 ABG O2 Saturation 98.7 H ABG Ionized Calcium ABG Glucose ABG Lactic Acid Sodium Chloride Carbon Dioxide Glucose POC Glucose (mg/dL) 134 H 148 H Calcium Total Bilirubin AST Total Protein Albumin Arterial Blood Glucose Crossmatch - Diagnostic Findings Chest x-ray: image reviewed Assessment and Plan Plan: 1 iatrogenic hemopericardium, post pericardiocentesis , post pericardial window, and the patient is postop day #1 2 acute hypoxic respiratory failure secondary to above, recovered and the patient has been extubated to room air oxygen. 3 chronic atrial fibrillation post EP studies and ablation. The patient's cardiac rhythm is sinus for now. 4 hypertension 5 hyperlipidemia PLAN Currently extubated to room air oxygen monitor the output from the pericardial tube watch for any signs of bleeding or hemodynamic instability continue using incentive spirometer hemodynamically stable outpatient medications have been restarted cardiac rhythm is sinus Kaelyn worley coagulation for today as the patient was receiving Eliquis on outpatient basis We'll continue to follow. Possible discharge out of the ICU within 24 hours of extubation.
[2021-01-29] MEDS: HEPARIN SODIUM,PORCINE/PF 5,000 UNIT/0.5 ML SYRINGE SQ SCH ×4 (01:00→23:52)
[2021-01-29] MEDS: ACETAMINOPHEN TAB 500 MG TAB PO PRN ×3 (03:15→20:07)
[2021-01-29 06:08] LABS: HCT 31.1 % (34.0-46.0); MCH 31.6 pg (25.0-35.0); MCHC 35.2 g/dL (31.0-37.0); MCV 89.8 fL (80.0-100.0); Mean Platelet Volume 8.8; Platelet Count 110 k/uL (150-450); RBC 3.47 m/uL (3.80-5.40); WBC 11.5 k/uL (3.8-10.6)
[2021-01-29 06:22] LABS: Calcium 7.6 mg/dL (8.4-10.2); Potassium 3.4 mmol/L (3.5-5.1)
[2021-01-29] MEDS ORDERED: Potassium Replacement Protocol 1 EACH MISC MISCELLANE PRN (06:55)
--- NOTE | 2021-01-29 07:24 | XR ---
EXAMINATION TYPE: XR chest 1V portable DATE OF EXAM: 01/29/2021 Comparison: 01/28/2021 Clinical History: 80-year-old female effusion Findings: Cardiac/pericardiac silhouette remains mildly enlarged. Pericardial drain is redemonstrated. Patchy c hanges in the left mid and lower lung have increased. Impression: 1. Mild enlargement of the cardiac/pericardiac silhouette may be slightly increased. The pericardial drain is redemonstrated. 2. Patchy changes in the left mid and lower lung are slightly increased. Correlate for possible devel oping pulmonary vascular congestion or infiltrate.
--- NOTE | 2021-01-29 09:30 | P.PN ---
Subjective Progress Note Date: 01/29/21 Principal diagnosis: Hemopericardium with removal of 750 mL blood in the EP lab. Medical history of paroxysmal atrial fibrillation on Eliquis for anticoagulation along with sick s inus syndrome, hypertension, hyperlipidemia, never smoker, family history of strokes and premature coronary artery disease with mother at 42 years old from myocardial infarction POD #2 pericardial window with ANABEL The patient was seen and examined this morning in the intensive care unit in no acute distress. She was successfully extubated yesterday at 10:35 am. Denies pain or shortness of breath. Remains in sinus rhythm and hemodynamically stable on no pressors. Repeat TTE yesterday demonstrated trivial pericardial effusion, pericardial drain produced 15 mL overnight, 160 mL in the last 24 hours. No new concerns. Objective - Vital Signs Vital signs: Vital Signs Temp 98.6 F 01/29/21 04:00 Pulse 85 01/29/21 07:00 Resp 20 01/29/21 07:00 BP 100/62 01/29/21 07:00 Pulse Ox 96 01/29/21 07:00 Intake & Output 01/28/21 01/29/21 01/29/21 18:59 06:59 18:59 Intake Total 634.842 600 50 Output Total 995 560 40 Balance -360.158 40 10 Weight 78.8 kg Intake: IV 570 600 50 sodium chloride 0.9% @ 50 570 600 50 ml/hr Intake, IV Titration 64.842 Amount propofoL 1,000 mg In 64.842 Empty Bag 1 bag @ Titrate IV .Q0M [facility] Rx#: [id number] Output: Chest Tube Drainage 100 15 Chest Tube 100 15 Gastric Drainage 300 Urine 595 545 40 Other: Voiding Method Indwelling Catheter Indwelling Catheter ABP, PAP, CO, CI - Last Documented Arterial Blood Pressure 121/50 - Exam CONSTITUTIONAL: Appears comfortable, no acute distress RESPIRATORY: Lungs sounds diminished bilaterally. Respirations even, currently on 3LPM NC with oxygen saturation 98%. Only achieving 750 mL on her incentive spirometry CARDIOVASCULAR: S1, S2 present. Regular rate and rhythm, sinus rhythm on telemetry. Palpable peripheral pulses bilaterally. No edema present. GASTROINTESTINAL: Abdomen soft, nontender, nondistended. Active bowel sounds present 4 quadrants. Tolerating diet GENITOURINARY: Thomas present draining clear, yellow urine. Output overnight 40-50 mL per hour INTEGUMENTARY: Skin is warm and dry. Surgical incision well approximated and covered with dry intact dressing NEUROLOGIC: Cranial nerves II through XII intact MUSKULOSKELETAL: Able to move all extremities, strength equal bilaterally PSYCHIATRIC: Currently sedated with propofol although she does open her eyes and follows commands INVASIVE LINES AND TUBES: Mediastinal chest tubes present and connected to wall suction, no air leaks present, 15 mL bloody drainage overnight, 160 mL in the last 24 hours. - Allied health notes Allied health notes reviewed: nursing - Labs CBC & Chem 7: 01/29/21 05:50 01/29/21 05:50 Labs: Abnormal Lab Results - Last 24 Hours (Table) 01/27/21 01/28/21 01/29/21 Range/Units 16:54 11:38 05:50 WBC 11.5 H (3.8-10.6) k/uL RBC 3.47 L (3.80-5.40) m/uL Hgb 11.0 L (11.4-16.0) gm/dL Hct 31.1 L (34.0-46.0) % Plt Count 110 L (150-450) k/uL Sodium (137-145) mmol/L Potassium (3.5-5.1) mmol/L Chloride (98-107) mmol/L Glucose (74-99) mg/dL POC Glucose (mg/dL) 148 H (75-99) mg/dL Calcium (8.4-10.2) mg/dL Crossmatch See Detail 01/29/21 Range/Units 05:50 WBC (3.8-10.6) k/uL RBC (3.80-5.40) m/uL Hgb (11.4-16.0) gm/dL Hct (34.0-46.0) % Plt Count (150-450) k/uL Sodium 135 L (137-145) mmol/L Potassium 3.4 L (3.5-5.1) mmol/L Chloride 108 H (98-107) mmol/L Glucose 117 H (74-99) mg/dL POC Glucose (mg/dL) (75-99) mg/dL Calcium 7.6 L (8.4-10.2) mg/dL Crossmatch Microbiology - Last 24 Hours (Table) 01/27/21 12:00 Gram Stain - Preliminary Heart Tissue Culture - Preliminary 01/27/21 12:00 Anaerobic Culture - Preliminary Heart - Imaging and Cardiology Chest x-ray: report reviewed, image reviewed Assessment and Plan Assessment: 1. Hemopericardium with removal of 750 mL blood by pericardiocentesis in the EP lab, status post pericardial window 2. History of paroxysmal atrial fibrillation on Eliquis for anticoagulation, currently sinus rhythm 3. History of hypertension 4. History of hyperlipidemia 5. Never smoker 6. Family history of CVA and premature coronary artery disease Plan: 1. We will continue to monitor drainage from pericardial drain. 2. Will obtain limited echo today. If no pericardial effusion and minimal drainage from pericardial drain today may consider removing drain later today 3. Wean oxygen as tolerated. Encourage incentive spirometry 4. Increase activity, ambulate as tolerated 5. Continue flecainide and Lopressor, will need to restart Eliquis after chest tube removal per Dr. Narvaez 6. Medical management of other medical comorbidities per Dr. Narvaez 7. More recommendations to follow Time with Patient: Greater than 30
[2021-01-29] MEDS: KETOROLAC 15 MG/ML 1 ML VIAL IVP PRN ×2 (10:29→16:32)
[2021-01-29] MEDS: POTASSIUM CHLORIDE ER 20 MEQ TAB.ER PO SCH ×2 (10:34→11:52)
[2021-01-29] MEDS: CHOLECALCIFEROL 25 MCG (1000 IU) TABLET PO SCH (10:34)
[2021-01-29] MEDS: MULTIVITAMINS, THERA 1 EACH TAB PO SCH (10:34)
[2021-01-29] MEDS: ATORVASTATIN 20 MG TAB PO SCH (10:35)
[2021-01-29] MEDS: PANTOPRAZOLE 40 MG TABLET PO SCH (10:35)
--- NOTE | 2021-01-29 10:35 | ECHOF ---
Referral Reason: MEASUREMENTS -------- HEIGHT: 0.0 cm WEIGHT: 0.0 kg BP: FINDINGS -------- Limited Study There is a moderate, generalized pericardial effusion present. There is no evidence of cardiac tamp onade. CONCLUSIONS -------- 1. There is a moderate, generalized pericardial effusion present. 2. There is no evidence of cardiac tamponade. ELECTRIC WIRER: Eileen Reardon RDCS
[2021-01-29] MEDS: MAGNESIUM OXIDE 400 MG TAB PO SCH (10:47)
[2021-01-29] MEDS: METOPROLOL TARTRATE 25 MG TAB PO SCH ×2 (10:48→20:13)
[2021-01-29] MEDS: LOSARTAN 50 MG TAB PO SCH ×2 (10:48→20:13)
[2021-01-29] MEDS: TRIAMTERENE-HCTZ 37.5-25MG 1 EACH CAP PO SCH (10:49)
[2021-01-29] MEDS: FLECAINIDE 50 MG TAB PO SCH ×2 (10:50→21:14)
--- NOTE | 2021-01-29 11:08 | ECHOF ---
Referral Reason:pericardial effusion MEASUREMENTS -------- HEIGHT: 162.6 cm WEIGHT: 78.5 kg BP: FINDINGS -------- Limited study pt had pericardial window 01/28/21. Echo free space represents a pericardial fat pad. CONCLUSIONS -------- 1. Limited study pt had pericardial window 01/28/21. 2. Echo free space represents a pericardial fat pad. ASSOCIATE GENETICS PROFESSOR: Sonam Walden RDCS
--- NOTE | 2021-01-29 11:17 | P.PN ---
Subjective Progress Note Date: 01/29/21 This is a 80-year-old female patient who underwent a pericardial window following that the patient was brought into the intensive care unit and overnight the patient was kept intubated on a mechanical ventilator. Note that the patient has had issues with itching fibrillation. The patient was undergoing EP studies and a fibrillation and the patient was having an elective pulmonary vein isolation at the lab. The patient developed an iatrogenic hemopericardium. This was confirmed by a echocardiogram. Pericardiocentesis was done. Approximately 7 50 mL of blood was aspirated. The patient became alta ewhat hemodynamically unstable. At that point, she was seen by CT surgery and the patient was taken for an emergent pericardial window and the surgery was successful and following that the patient was left with a pericardial tube and the patient was brought into the intensive care unit for further management. The patient this morning was on propofol at 25 Zay respiratory failure and per minute. She was a normal sed rate the 50s an hour. She was on no pressors. Cardiac rhythm was sinus. Output from the pericardial tube was in the order 130 mL overnight. The patient was an assist-control mode of mechanical ventilation at the rate of 10 with a tidal volume of 450 and FiO2 of 40% with a PEEP of 5. Peak airway pressure was 24. Static pressure was 19. The patient was taken off sedation. She was given a sedation holiday. She had adequate weaning parameters pH underwent this point is breathing trial and following that she was extubated to room air oxygen. She remains hemodynamically stable for now. Hemoglobin today is at 12.6. Normal renal function. Normal electrolytes. The chest x-ray from today shows no acute cardio pulmonary abnormalities. Indwelling catheters are all in place. On today's evaluation on 01/29/2021 patient seen in follow-up in the intensive care unit, she is awake and alert, oriented 3, she is breathing comfortable, she is on room air, denies any shortness of breath, her pulse ox is 91-92%, afebrile overnight, hemodynamically she is been stable, she is in sinus mechanism with a controlled rate. He is not on any IV fluids or maintenance IV drips. Her subxiphoid chest tube is still in place, connected to Pleur-evac, and had 115 mL of serosanguineous output in the last 24 hours. It is connected to wall suction. CT surgery is following, today's chest x-ray has been reviewed showing enlargement of the cardiac/pericardiac silhouette that may have slightly increased, operative changes in the left mid and lower lung that are slightly i ncreased correlating for a possible developing pulmonary vascular congestion or infiltrate. Patient has had no fever or chills, no cough or phlegm production, she denies any specific complaints, her bilateral groin sheaths were discontinued by cardiology this morning, patient is in reverse Trendelenburg position, bilateral groin puncture sites are clean dry and intact, mild edema in her bilateral lower extremities, maybe slightly distended abdomen, patient states she is passing gas, no abdominal pain, she is tolerating oral intake. Today's labs have been reviewed, her white blood cell count is 11.5, hemoglobin is 11, platelet count is 110, sodium is 135, potassium 3.4, chloride is 108, BUN is 17 creatinine 0.86 Objective - Vital Signs Vital signs: Vital Signs Temp 98.6 F 01/29/21 04:00 Pulse 85 01/29/21 10:30 Resp 21 01/29/21 10:30 BP 89/66 01/29/21 10:30 Pulse Ox 91 L 01/29/21 10:30 Intake & Output 01/28/21 01/29/21 01/29/21 18:59 06:59 18:59 Intake Total 634.842 600 150 Output Total 995 560 325 Balance -360.158 40 -175 Weight 78.8 kg Intake: IV 570 600 150 sodium chloride 0.9% @ 50 570 600 150 ml/hr Intake, IV Titration 64.842 Amount propofoL 1,000 mg In 64.842 Empty Bag 1 bag @ Titrate IV .Q0M [facility] Rx#: [id number] Output: Chest Tube Drainage 100 15 60 Chest Tube 100 15 60 Gastric Drainage 300 Urine 595 545 265 Other: Voiding Method Indwelling Catheter Indwelling Catheter ABP, PAP, CO, CI - Last Documented Arterial Blood Pressure 99/38 - Exam GENERAL EXAM: Alert, 80-year-old white female, resting comfortably in bed, in reverse Trendelenburg position, on room air, with a pulse ox of 96% comfortable in no apparent distress. HEAD: Normocephalic/atraumatic. EYES: Normal reaction of pupils, equal size. Conjunctiva pink, sclera white. NOSE: Clear with pink turbinates. THROAT: No erythema or exudates. NECK: No masses, no JVD, no thyroid enlargement, no adenopathy. CHEST: No chest wall deformity. Symmetrical expansion. subXiphoid chest tube in place, with minimal output, connected to Pleur-evac and wall suction LUNGS: Equal air entry with no crackles, wheeze, rhonchi or dullness. CVS: Regular rate and rhythm, normal S1 and S2, no gallops, no murmurs, no rubs ABDOMEN: Soft, nontender. No hepatosplenomegaly, normal bowel sounds, no gu arding or rigidity. EXTREMITIES: No clubbing, lower extremity edema, no cyanosis, 2+ pulses and uppe r and lower extremities. bilateral groin puncture sites are clean dry and intact MUSCULOSKELETAL: Muscle strength and tone normal. SPINE: No scoliosis or deformity SKIN: No rashes CENTRAL NERVOUS SYSTEM: An alert, oriented 3 No focal deficits, tone is normal in all 4 extremities. PSYCHIATRIC: Alert and oriented -3. Appropriate affect. Intact judgment and insight. - Labs CBC & Chem 7: 01/29/21 05:50 01/29/21 05:50 Labs: Abnormal Lab Results - Last 24 Hours (Table) 01/27/21 01/28/21 01/29/21 Range/Units 16:54 11:38 05:50 WBC 11.5 H (3.8-10.6) k/uL RBC 3.47 L (3.80-5.40) m/uL Hgb 11.0 L (11.4-16.0) gm/dL Hct 31.1 L (34.0-46.0) % Plt Count 110 L (150-450) k/uL Sodium (137-145) mmol/L Potassium (3.5-5.1) mmol/L Chloride (98-107) mmol/L Glucose (74-99) mg/dL POC Glucose (mg/dL) 148 H (75-99) mg/dL Calcium (8.4-10.2) mg/dL Crossmatch See Detail 01/29/21 Range/Units 05:50 WBC (3.8-10.6) k/uL RBC (3.80-5.40) m/uL Hgb (11.4-16.0) gm/dL Hct (34.0-46.0) % Plt Count (150-450) k/uL Sodium 135 L (137-145) mmol/L Potassium 3.4 L (3.5-5.1) mmol/L Chloride 108 H (98-107) mmol/L Glucose 117 H (74-99) mg/dL POC Glucose (mg/dL) (75-99) mg/dL Calcium 7.6 L (8.4-10.2) mg/dL Crossmatch Microbiology - Last 24 Hours (Table) 01/27/21 12:00 Gram Stain - Preliminary Heart Tissue Culture - Preliminary 01/27/21 12:00 Anaerobic Culture - Preliminary Heart Assessment and Plan Plan: Assessment: #1. Iatrogenic hemopericardium, post pericardiocentesis , post pericardial window, and the patient is postop day #2 #2. acute hypoxic respiratory failure secondary to above, recovered and the patient has been extubated to room air oxygen. #3. chronic atrial fibrillation post EP studies and ablation. The patient's cardiac rhythm is sinus for now. #4. hypertension #5. hyperlipidemia Plan: Encourage deep breathing and coughing, today's chest x-ray has been reviewed Vital Signs have been stable, no vasopressor support, Encourage incentive spirometry use No acute events overnight Minimal output from the subxiphoid chest tube Possible removal of the chest tube tomorrow CT surgery is following Acute events overnight Maybe up in the chair later today I performed a history & physical examination of the patient and discussed their management with my nurse practitioner, Raquel Granados. I reviewed the nurse practitioner's note and agree with the documented findings and plan of care. Lung sounds are positive for diminished breath sounds throughout the lung michel. The findings and the impression was discussed with the patient. I attest to the documentation by the nurse practitioner. Time with Patient: Less than 30
--- NOTE | 2021-01-29 19:00 | P.PN ---
Subjective Patient evaluated on Tuesday in the morning Subsequently reevaluated and hours later Reevaluated once again in the evening In the morning the patient was intubated Chest tube in situ Normal rhythm sinus normal heart rates in the 60s to 70s Normal blood pressure No episodes of hypotension Drainage from the chest tube around 100 mL approximately Heart sounds S1 and S2 are soft Dear lungs Patient intubated Later like him to see the patient again I spoke to the CT surgery team/WEB SITE ADMINISTRATOR The patient had a 2-D echo at that time and there is a very small pericardial space with clotted blood Similar to the evening prior Plan Continue cardiac medications including antihypertensive therapy and flecainide Obviously ELIQUIS on hold DVT prophylaxis continue Appreciate CT surgery input and support Reevaluate the patient after 6 PM Patient's daughter and were present the room Patient had been next weight is successfully and was doing well Drainage from the CT to was about 160 mL She maintains sinus rhythm Maintain normal blood pressure In good spirits Alert and oriented and engaging in a full conversation I had a detailed discussion with her about the events of the procedure from the day before I explained to her that the likely site of puncture was in the right atrium while we were working with the ablation catheter in the left atrium I explained the plan for next few days Objective - Vital Signs Vital signs: Vital Signs Temp 98.3 F 01/29/21 16:00 Pulse 72 01/29/21 18:00 Resp 16 01/29/21 18:00 BP 118/80 01/29/21 18:00 Pulse Ox 97 01/29/21 18:00 Intake & Output 01/28/21 01/29/21 01/29/21 18:59 06:59 18:59 Intake Total 634.842 600 350 Output Total 995 560 575 Balance -360.158 40 -225 Weight 78.8 kg Intake: IV 570 600 350 sodium chloride 0.9% @ 50 570 600 350 ml/hr Intake, IV Titration 64.842 Amount propofoL 1,000 mg In 64.842 Empty Bag 1 bag @ Titrate IV .Q0M [facility] Rx#: [id number] Output: Chest Tube Drainage 100 15 70 Chest Tube 100 15 70 Gastric Drainage 300 Urine 595 545 505 Other: Voiding Method Indwelling Catheter Indwelling Catheter Bedside Commode ABP, PAP, CO, CI - Last Documented Arterial Blood Pressure 99/38 - Labs CBC & Chem 7: 01/29/21 05:50 01/29/21 05:50 Labs: Abnormal Lab Results - Last 24 Hours (Table) 01/27/21 01/29/21 01/29/21 Range/Units 16:54 05:50 05:50 WBC 11.5 H (3.8-10.6) k/uL RBC 3.47 L (3.80-5.40) m/uL Hgb 11.0 L (11.4-16.0) gm/dL Hct 31.1 L (34.0-46.0) % Plt Count 110 L (150-450) k/uL Sodium 135 L (137-145) mmol/L Potassium 3.4 L (3.5-5.1) mmol/L Chloride 108 H (98-107) mmol/L Glucose 117 H (74-99) mg/dL Calcium 7.6 L (8.4-10.2) mg/dL Crossmatch See Detail Microbiology - Last 24 Hours (Table) 01/27/21 12:00 Gram Stain - Preliminary Heart Tissue Culture - Preliminary
--- NOTE | 2021-01-29 19:03 | P.PN ---
Subjective Evaluated the patient this morning and once again in the evening This morning I removed all her venous sheaths as well as the arterial sheath Vascade closure was performed successfully on the full sterile precautions for 8-Surinamese sheaths on the left side, the 12-Surinamese sheath in the vein in the right femoral vein and the 5-Surinamese sheath in the right femoral artery successfully Patient tolerated the procedure well Later in the evening she was sitting comfortably Chest tube still in situ 2-D echo reviewed No significant change from the day before in terms of the width of the pericardial space There is a density along the wall of the right atrium which was also seen on intracardiac echo and the likely location of the puncture Vitals are stable She has sinus rhythm with occasional PVCs maintains sinus rhythm Heart sounds S1 and S2 are soft I don't appreciate a rub Lungs are clear She was sitting up comfortably in a chair Plan Continue subcu heparin Hold off on ELIQUIS Await CT surgery recommendations regarding chest tube removal Continue cardiac medications continue flecainide and antihypertensive therapy Objective - Vital Signs Vital signs: Vital Signs Temp 98.3 F 01/29/21 16:00 Pulse 72 01/29/21 18:00 Resp 16 01/29/21 18:00 BP 118/80 01/29/21 18:00 Pulse Ox 97 01/29/21 18:00 Intake & Output 01/29/21 01/29/21 01/30/21 06:59 18:59 06:59 Intake Total 600 350 Output Total 560 575 Balance 40 -225 Weight 78.8 kg Intake: IV 600 350 sodium chloride 0.9% @ 50 600 350 ml/hr Output: Chest Tube Drainage 15 70 Chest Tube 15 70 Urine 545 505 Other: Voiding Method Indwelling Catheter Bedside Commode ABP, PAP, CO, CI - Last Documented Arterial Blood Pressure 99/38 - Labs CBC & Chem 7: 01/29/21 05:50 01/29/21 05:50 Labs: Abnormal Lab Results - Last 24 Hours (Table) 01/27/21 01/29/21 01/29/21 Range/Units 16:54 05:50 05:50 WBC 11.5 H (3.8-10.6) k/uL RBC 3.47 L (3.80-5.40) m/uL Hgb 11.0 L (11.4-16.0) gm/dL Hct 31.1 L (34.0-46.0) % Plt Count 110 L (150-450) k/uL Sodium 135 L (137-145) mmol/L Potassium 3.4 L (3.5-5.1) mmol/L Chloride 108 H (98-107) mmol/L Glucose 117 H (74-99) mg/dL Calcium 7.6 L (8.4-10.2) mg/dL Crossmatch See Detail Microbiology - Last 24 Hours (Table) 01/27/21 12:00 Gram Stain - Preliminary Heart Tissue Culture - Preliminary
[2021-01-30] MEDS: ACETAMINOPHEN TAB 500 MG TAB PO PRN ×2 (03:12→15:32)
[2021-01-30 04:11] LABS: HCT 30.5 % (34.0-46.0); HGB 10.7 gm/dL (11.4-16.0); MCH 31.4 pg (25.0-35.0); MCHC 35.1 g/dL (31.0-37.0); MCV 89.6 fL (80.0-100.0); Mean Platelet Volume 8.5; Platelet Count 112 k/uL (150-450); RDW 14.5 % (11.5-15.5); WBC 8.7 k/uL (3.8-10.6)
[2021-01-30 04:36] LABS: Ionized Calcium 4.9 mg/dL (4.5-5.3)
[2021-01-30 04:49] LABS: Calcium 7.9 mg/dL (8.4-10.2); Potassium 3.7 mmol/L (3.5-5.1)
[2021-01-30] MEDS ORDERED: POTASSIUM CHLORIDE ER 20 MEQ TAB.ER PO SCH (05:00)
[2021-01-30] MEDS: PANTOPRAZOLE 40 MG TABLET PO SCH (05:29)
[2021-01-30] MEDS: KETOROLAC 15 MG/ML 1 ML VIAL IVP PRN (05:31)
--- NOTE | 2021-01-30 07:20 | P.PN ---
Subjective Progress Note Date: 01/30/21 Principal diagnosis: Hemopericardium with removal of 750 mL blood in the EP lab. Medical history of paroxysmal atrial fibrillation on Eliquis for anticoagulation along with sick s inus syndrome, hypertension, hyperlipidemia, never smoker, family history of strokes and premature coronary artery disease with mother at 42 years old from myocardial infarction POD #3 pericardial window with ANABEL The patient was seen and examined this morning in the intensive care unit in no acute distress. Denies pain or shortness of breath. Remains in sinus rhythm and hemodynamically stable. Pericardial drain produced 10 mL overnight, 50 mL in the last 24 hours. Patient has been up to the chair, currently eating breakfast. No new concerns. Objective - Vital Signs Vital signs: Vital Signs Temp 98.1 F 01/30/21 04:00 Pulse 82 01/30/21 07:00 Resp 21 01/30/21 07:00 BP 127/86 01/30/21 07:00 Pulse Ox 93 L 01/30/21 07:00 Intake & Output 01/29/21 01/30/21 01/30/21 18:59 06:59 18:59 Intake Total 350 1000 50 Output Total 575 530 0 Balance -225 470 50 Weight 79.5 kg Intake: IV 350 600 50 sodium chloride 0.9% @ 50 350 600 50 ml/hr Oral 400 Output: Chest Tube Drainage 70 30 Chest Tube 70 30 Urine 505 500 0 Other: Voiding Method Bedside Commode Bedside Commode ABP, PAP, CO, CI - Last Documented Arterial Blood Pressure 99/38 - Exam CONSTITUTIONAL: Appears comfortable, no acute distress RESPIRATORY: Lungs sounds diminished bilaterally. Respirations even, currently on room air with oxygen saturation 94%. Only achieving 500 mL on her incentive spirometry CARDIOVASCULAR: S1, S2 present. Regular rate and rhythm, sinus rhythm on telemetry. Palpable peripheral pulses bilaterally. No edema present. GASTROINTESTINAL: Abdomen soft, nontender, nondistended. Active bowel sounds present 4 quadrants. Tolerating diet GENITOURINARY: Thomas discontinued yesterday, continues to void without difficulty INTEGUMENTARY: Skin is warm and dry. Surgical incision well approximated and covered with dry intact dressing. Bilateral groins soft NEUROLOGIC: Cranial nerves II through XII intact MUSKULOSKELETAL: Able to move all extremities, strength equal bilaterally PSYCHIATRIC: Alert and oriented x 3, appropriate INVASIVE LINES AND TUBES: Mediastinal chest tubes present and connected to wall suction, no air leaks present, 10 mL bloody drainage overnight, 50 mL in the last 24 hours. - Allied health notes Allied health notes reviewed: nursing - Labs CBC & Chem 7: 01/30/21 03:55 01/30/21 03:55 Labs: Abnormal Lab Results - Last 24 Hours (Table) 01/30/21 01/30/21 Range/Units 03:55 03:55 RBC 3.40 L (3.80-5.40) m/uL Hgb 10.7 L (11.4-16.0) gm/dL Hct 30.5 L (34.0-46.0) % Plt Count 112 L (150-450) k/uL Sodium 133 L (137-145) mmol/L Glucose 118 H (74-99) mg/dL Calcium 7.9 L (8.4-10.2) mg/dL Microbiology - Last 24 Hours (Table) 01/27/21 12:00 Gram Stain - Preliminary Heart Tissue Culture - Preliminary - Imaging and Cardiology Chest x-ray: image reviewed Assessment and Plan Assessment: 1. Hemopericardium with removal of 750 mL blood by pericardiocentesis in the EP lab, status post pericardial window 2. History of paroxysmal atrial fibrillation on Eliquis for anticoagulation, currently sinus rhythm 3. History of hypertension 4. History of hyperlipidemia 5. Never smoker 6. Family history of CVA and premature coronary artery disease Plan: 1. Chest tube removed without incident 2. Encourage incentive spirometry 3. Increase activity, ambulate as tolerated 4. Continue flecainide and Lopressor, will need to restart Eliquis after chest tube removal per GEOVANNA Watkins from our standpoint 5. Medical management of other medical comorbidities per Dr. Narvaez 6. May transfer out of ICU from our standpoint 7. More recommendations to follow Time with Patient: Greater than 30
--- NOTE | 2021-01-30 07:25 | XR ---
EXAMINATION TYPE: XR chest 1V portable DATE OF EXAM: 01/30/2021 HISTORY: Shortness of breath. COMPARISON: 01/29/2021 TECHNIQUE: Single view of the chest is submitted. FINDINGS: Demonstrated are scattered senescent parenchymal change. Patchy infiltrate left lower lobe and right perihilar infiltrate persists without significant change. The heart is stable. Drainage catheter overlying the heart is unchanged. Hilar and mediastinal structures are within normal limits. Degenerative changes are seen of the dorsal spine. IMPRESSION: 1. Patchy infiltrate left lower lobe and right perihilar infiltrate persists without significant efrain nge.
[2021-01-30] MEDS: HEPARIN SODIUM,PORCINE/PF 5,000 UNIT/0.5 ML SYRINGE SQ SCH ×3 (08:40→23:52)
[2021-01-30] MEDS: ATORVASTATIN 20 MG TAB PO SCH (08:40)
[2021-01-30] MEDS: CHOLECALCIFEROL 25 MCG (1000 IU) TABLET PO SCH (08:40)
[2021-01-30] MEDS: FLECAINIDE 50 MG TAB PO SCH ×2 (08:41→21:06)
[2021-01-30] MEDS: LOSARTAN 50 MG TAB PO SCH ×2 (08:42→21:05)
[2021-01-30] MEDS: MAGNESIUM OXIDE 400 MG TAB PO SCH (08:43)
[2021-01-30] MEDS: METOPROLOL TARTRATE 25 MG TAB PO SCH ×2 (08:44→21:06)
[2021-01-30] MEDS: TRIAMTERENE-HCTZ 37.5-25MG 1 EACH CAP PO SCH (08:44)
[2021-01-30] MEDS: MULTIVITAMINS, THERA 1 EACH TAB PO SCH (08:44)
--- NOTE | 2021-01-30 10:26 | P.PN ---
Subjective Progress Note Date: 01/30/21 Principal diagnosis: Acute iatrogenic hemopericardium. This is a 80-year-old female patient who underwent a pericardial window following that the patient was brought into the intensive care unit and overnight the patient was kept intubated on a mechanical ventilator. Note that the patient has had issues with itching fibrillation. The patient was undergoing EP studies and a fibrillation and the patient was having an elective pulmonary vein isolation at the lab. The patient developed an iatrogenic hemopericardium. This was confirmed by a echocardiogram. Pericardiocentesis was done. Approximately 7 50 mL of blood was aspirated. The patient became somewhat hemodynamically unstable. At that point, she was seen by CT surgery and the patient was taken for an emergent pericardial window and the surgery was successful and following that the patient was left with a pericardial tube and the patient was brought into the intensive care unit for further management. The patient this morning was on propofol at 25 Zay respiratory failure and per minute. She was a normal sed rate the 50s an hour. She was on no pressors. Cardiac rhythm was sinus. Output from the pericardial tube was in the order 130 mL overnight. The patient was an assist-control mode of mechanical ventilation at the rate of 10 with a tidal volume of 450 and FiO2 of 40% with a PEEP of 5. Peak airway pressure was 24. Static pressure was 19. The patient was taken off sedation. She was given a sedation holiday. She had adequate weaning parameters pH underwent this point is breathing trial and following that she was extubated to room air oxygen. She remains hemodynamically stable for now. Hemoglobin today is at 12.6. Normal renal function. Normal electrolytes. The chest x-ray from today shows no acute cardio pulmonary abnormalities. Indwelling catheters are all in place. On today's evaluation on 01/29/2021 patient seen in follow-up in the intensive care unit, she is awake and alert, oriented 3, she is breathing comfortable, she is on room air, denies any shortness of breath, her pulse ox is 91-92%, afebrile overnight, hemodynamically she is been stable, she is in sinus mechanism with a controlled rate. He is not on any IV fluids or maintenance IV drips. Her subxiphoid chest tube is still in place, connected to Pleur-evac, and had 115 mL of serosanguineous output in the last 24 hours. It is connected to wall suction. CT surgery is following, today's chest x-ray has been reviewed showing enlargement of the cardiac/pericardiac silhouette that may have slightly increased, operative changes in the left mid and lower lung that are slightly increased correlating for a possible developing pulmonary vascular congestion or infiltrate. Patient has had no fever or chills, no cough or phlegm production, she denies any specific complaints, her bilateral groin sheaths were discontinued by cardiology this morning, patient is in reverse Trendelenburg position, bilateral groin puncture sites are clean dry and intact, mild edema in her bilateral lower extremities, maybe slightly distended abdomen, patient states she is passing gas, no abdominal pain, she is tolerating oral intake. Today's labs have been reviewed, her white blood cell count is 11.5, hemoglobin is 11, platelet count is 110, sodium is 135, potassium 3.4, chloride is 108, BUN is 17 creatinine 0.86 Patient was reevaluated today on 02/09 remains in the ICU, patient is on room air, he is hemodynamically stable, in no form of distress, patient received a total of 2 units of packed RBCs since her iatrogenic hemopericardium. Today the patient is doing great, and the chest tube is going to be removed by thoracic surgery. Patient denies any shortness of breath, no chest pain, no cough, no hemoptysis. The tube drained only 50 mL of blood overnight. Electrolytes are normal CBC is normal hemoglobin is 10.7. Chest x-ray is relatively unremarkable Objective - Vital Signs Vital signs: Vital Signs Temp 97.8 F 01/30/21 08:00 Pulse 66 01/30/21 08:00 Resp 21 01/30/21 08:00 BP 121/70 01/30/21 08:00 Pulse Ox 95 01/30/21 08:00 Intake & Output 01/29/21 01/30/21 01/30/21 18:59 06:59 18:59 Intake Total 350 1000 50 Output Total 575 530 0 Balance -225 470 50 Weight 79.5 kg Intake: IV 350 600 50 sodium chloride 0.9% @ 50 350 600 50 ml/hr Oral 400 Output: Chest Tube Drainage 70 30 Chest Tube 70 30 Urine 505 500 0 Other: Voiding Method Bedside Commode Bedside Commode ABP, PAP, CO, CI - Last Documented Arterial Blood Pressure 99/38 - Exam GENERAL EXAM: Alert, 80-year-old white female, resting comfortably in bed, in reverse Trendelenburg position, on room air, with a pulse ox of 96% comfortable in no apparent distress. HEENT: PERRLA, EOMI, anicteric, masses, no JVD, no stridor. NECK: No masses, no JVD, no thyroid enlargement, no adenopathy. CHEST: No chest wall deformity. Symmetrical expansion. subXiphoid chest tube in place, with minimal output, connected to Pleur-evac and wall suction LUNGS: Clear bilaterally no crackles or rhonchi or wheezes. CVS: Regular rate and rhythm, normal S1 and S2, no gallops, no murmurs, no rubs ABDOMEN: Soft, nontender. No hepatosplenomegaly, normal bowel sounds, no guarding or rigidity. EXTREMITIES: No clubbing, lower extremity edema, no cyanosis, 2+ pulses and upper and lower extremities. bilateral groin puncture sites are clean dry and intact MUSCULOSKELETAL: Muscle strength and tone normal.y SKIN: No rashes CENTRAL NERVOUS SYSTEM: Alert and oriented 3 focal deficits. PSYCHIATRIC: Normal mood affect and normal mental status examination. - Labs CBC & Chem 7: 01/30/21 03:55 01/30/21 09:16 Labs: Abnormal Lab Results - Last 24 Hours (Table) 01/30/21 01/30/21 Range/Units 03:55 03:55 RBC 3.40 L (3.80-5.40) m/uL Hgb 10.7 L (11.4-16.0) gm/dL Hct 30.5 L (34.0-46.0) % Plt Count 112 L (150-450) k/uL Sodium 133 L (137-145) mmol/L Glucose 118 H (74-99) mg/dL Calcium 7.9 L (8.4-10.2) mg/dL Microbiology - Last 24 Hours (Table) 01/27/21 12:00 Gram Stain - Preliminary Heart Tissue Culture - Preliminary Assessment and Plan Assessment: Impression: Iatrogenic hemopericardium, status post pericardiocentesis and pericardial window postoperative day #3. Acute hypoxic respiratory failure second to above, resolved at the patient is presently on room air. History of chronic atrial fibrillation status post ablation. Presently in sinus rhythm. History of hypertension. Recommendation: Continue incentive spirometry. Chest tube was removed today by thoracic surgery. Consider stressing the patient up to the cardiac unit. Monitor over the next 24 hours, We will reassess in a.m., and possibly recommend discharge home with cleared by other consultants. We'll continue to follow. Time with Patient: Less than 30
[2021-01-31] MEDS: ACETAMINOPHEN TAB 500 MG TAB PO PRN (02:23)
[2021-01-31] MEDS: PANTOPRAZOLE 40 MG TABLET PO SCH (06:08)
[2021-01-31] MEDS ORDERED: FUROSEMIDE 40 MG TAB PO STA (06:51)
[2021-01-31 08:07] LABS: HCT 31.5 % (34.0-46.0); HGB 10.8 gm/dL (11.4-16.0); MCH 31.4 pg (25.0-35.0); MCHC 34.4 g/dL (31.0-37.0); MCV 91.2 fL (80.0-100.0); Mean Platelet Volume 8.3; Platelet Count 146 k/uL (150-450); RBC 3.45 m/uL (3.80-5.40); RDW 14.4 % (11.5-15.5); WBC 7.9 k/uL (3.8-10.6)
--- NOTE | 2021-01-31 08:21 | P.PN ---
Subjective Progress Note Date: 01/31/21 Principal diagnosis: Hemopericardium with removal of 750 mL blood in the EP lab. Medical history of paroxysmal atrial fibrillation on Eliquis for anticoagulation along with sick s inus syndrome, hypertension, hyperlipidemia, never smoker, family history of strokes and premature coronary artery disease with mother at 42 years old from myocardial infarction POD #4 pericardial window with ANABEL The patient was seen and examined this morning on the cardiac stepdown unit in no acute distress. Denies pain or shortness of breath. Remains in sinus rhythm and hemodynamically stable. Pericardial drain discontinued yesterday. Patient has been up to the chair, currently eating breakfast. She is in good spirits and anxious to go home. No new concerns. Objective - Vital Signs Vital signs: Vital Signs Temp 98.2 F 01/30/21 20:00 Pulse 77 01/31/21 04:00 Resp 18 01/31/21 04:00 BP 130/72 01/31/21 04:00 Pulse Ox 95 01/31/21 04:00 Intake & Output 01/30/21 01/31/21 01/31/21 18:59 06:59 18:59 Intake Total 598 485 Output Total 0 Balance 598 485 Intake: IV 50 sodium chloride 0.9% @ 50 50 ml/hr Oral 548 485 Output: Urine 0 Other: Voiding Method Toilet Toilet # Voids 1 2 ABP, PAP, CO, CI - Last Documented Arterial Blood Pressure 99/38 - Exam CONSTITUTIONAL: Appears comfortable, no acute distress RESPIRATORY: Lungs sounds diminished bilaterally. Respirations even, currently on room air with oxygen saturation 95%. Only achieving 500 mL on her incentive spirometry CARDIOVASCULAR: S1, S2 present. Regular rate and rhythm, sinus rhythm on telemetry. Palpable peripheral pulses bilaterally. No edema present. GASTROINTESTINAL: Abdomen soft, nontender, nondistended. Active bowel sounds present 4 quadrants. Tolerating diet GENITOURINARY: Continues to void without difficulty INTEGUMENTARY: Skin is warm and dry. Surgical incision well approximated and covered with dry intact dressing. Bilateral groins soft NEUROLOGIC: Cranial nerves II through XII intact MUSKULOSKELETAL: Able to move all extremities, strength equal bilaterally PSYCHIATRIC: Alert and oriented x 3, appropriate - Allied health notes Allied health notes reviewed: nursing - Labs CBC & Chem 7: 01/31/21 07:38 01/30/21 09:16 Labs: Abnormal Lab Results - Last 24 Hours (Table) 01/31/21 Range/Units 07:38 RBC 3.45 L (3.80-5.40) m/uL Hgb 10.8 L (11.4-16.0) gm/dL Hct 31.5 L (34.0-46.0) % Plt Count 146 L (150-450) k/uL Microbiology - Last 24 Hours (Table) 01/27/21 12:00 Anaerobic Culture - Preliminary Heart 01/27/21 12:00 Gram Stain - Preliminary Heart Tissue Culture - Preliminary Assessment and Plan Assessment: 1. Hemopericardium with removal of 750 mL blood by pericardiocentesis in the EP lab, status post pericardial window 2. History of paroxysmal atrial fibrillation on Eliquis for anticoagulation, currently sinus rhythm 3. History of hypertension 4. History of hyperlipidemia 5. Never smoker 6. Family history of CVA and premature coronary artery disease Plan: 1. Chest tube removed yesterday without incident 2. Encourage incentive spirometry 3. Increase activity, ambulate as tolerated 4. Continue flecainide and Lopressor, will need to restart Eliquis after chest tube removal per Dr. Narvaez, OK from our standpoint 5. Medical management of other medical comorbidities per Dr. Narvaez 6. May be discharged to home from our standpoint when okay with Dr. Narvaez. Patient may follow-up with us at the end of the week for incision check 7. Will continue to see on an as needed basis while hospitalized. Please call us with any concerns Time with Patient: Greater than 30
[2021-01-31 09:22] LABS: Calcium 8.8 mg/dL (8.4-10.2); Potassium 3.8 mmol/L (3.5-5.1)
[2021-01-31] MEDS: KETOROLAC 15 MG/ML 1 ML VIAL IVP PRN (10:01)
[2021-01-31] MEDS: LOSARTAN 50 MG TAB PO SCH ×2 (10:02→20:02)
[2021-01-31] MEDS: METOPROLOL TARTRATE 25 MG TAB PO SCH ×2 (10:03→20:01)
[2021-01-31] MEDS: MAGNESIUM OXIDE 400 MG TAB PO SCH (10:03)
[2021-01-31] MEDS: HEPARIN SODIUM,PORCINE/PF 5,000 UNIT/0.5 ML SYRINGE SQ SCH ×2 (10:04→16:57)
[2021-01-31] MEDS: TRIAMTERENE-HCTZ 37.5-25MG 1 EACH CAP PO SCH (10:04)
[2021-01-31] MEDS: CHOLECALCIFEROL 25 MCG (1000 IU) TABLET PO SCH (10:04)
[2021-01-31] MEDS: MULTIVITAMINS, THERA 1 EACH TAB PO SCH (10:05)
[2021-01-31] MEDS: FLECAINIDE 50 MG TAB PO SCH ×2 (10:05→20:01)
[2021-01-31] MEDS: ATORVASTATIN 20 MG TAB PO SCH (10:05)
--- NOTE | 2021-01-31 16:54 | ECHOF ---
Referral Reason:evaluate pericardial effusion MEASUREMENTS -------- HEIGHT: 162.6 cm WEIGHT: 79.4 kg BP: 130/72 FINDINGS -------- Sinus rhythm. Limited Study There is a trivial pericardial effusion present. CONCLUSIONS -------- 1. There is a trivial pericardial effusion present. SALES SECRETARY: Eileen Reardon DANA
[2021-01-31 21:38] VITALS: TEMP 98.1
[2021-02-01] MEDS: HEPARIN SODIUM,PORCINE/PF 5,000 UNIT/0.5 ML SYRINGE SQ SCH ×2 (01:18→08:18)
[2021-02-01] MEDS: PANTOPRAZOLE 40 MG TABLET PO SCH (06:32)
[2021-02-01] MEDS: MAGNESIUM OXIDE 400 MG TAB PO SCH (08:18)
[2021-02-01] MEDS: CHOLECALCIFEROL 25 MCG (1000 IU) TABLET PO SCH (08:18)
[2021-02-01] MEDS: ATORVASTATIN 20 MG TAB PO SCH (08:19)
[2021-02-01] MEDS: FLECAINIDE 50 MG TAB PO SCH (08:19)
[2021-02-01] MEDS: LOSARTAN 50 MG TAB PO SCH (08:19)
[2021-02-01] MEDS: MULTIVITAMINS, THERA 1 EACH TAB PO SCH (08:20)
[2021-02-01] MEDS: TRIAMTERENE-HCTZ 37.5-25MG 1 EACH CAP PO SCH (08:20)
[2021-02-01] MEDS: METOPROLOL TARTRATE 25 MG TAB PO SCH (08:20)
[2021-02-01 11:27] VITALS: BP 149/82; PULSE 67; RESP 20
[2021-02-01] MEDS ORDERED: FUROSEMIDE 10 MG/ML 4 ML VIAL IV STA (12:03)
[2021-02-01] MEDS ORDERED: LOSARTAN 50 MG TAB PO STA (14:04)
--- NOTE | 2021-02-01 14:29 | P.PN ---
Subjective Patient was examined on Tuesday morning around 6 AM She was sitting up in a chair She woke up early went to the bathroom No dizziness no lightheadedness minimal chest discomfort No shortness of breath only complaint was that she felt puffy and she deftly had bilateral lower extremity edema, pitting Blood pressure 130/72 mmHg pulse rate in the 70s normal respirations afebrile 97.6F Labs are reviewed Hemoglobin 10.7 normal white count and platelet count 112,000 Sodium 133 potassium 3.7 BUN 14 creatinine 0.96 2-D echo study was reviewed later and showed no change from the day before Small pericardial space evident Normal LV function Biatrial enlargement Impression Paroxysmal atrial fibrillation symptomatic failed drug therapy Pericardial tamponade during procedure for atrial fibrillation Successful pericardiocentesis along with reversal of heparin Immediate improvement in blood pressure and she remained stable thereafter However reappearance of fluid in the pericardial space. In the meantime K Sentra was administered to reverse ELIQUIS She was he was apparently stable but the pigtail catheter in the pericardium was clotted and would not drain blood any further Pericardial window with large drain placed in the pericardium to allow for passage of clot blood and residual blood Thereafter she has remained stable over the last several days We are not resumed ELIQUIS so far Yesterday 2-D echo and Doppler study showed no change from the immediate postoperative period Suggest Continue monitoring on telemetry She has sinus rhythm with occasional PVCs and one brief run of nonsustained ventricular tachycardia a symptomatic By mouth Lasix today 40 mg Continue antihypertensive therapy continue beta blockers No anticoagulation ambulate in the room Appreciate CT surgery and pulmonary critical care input Objective - Vital Signs Vital signs: Vital Signs Temp 98.1 F 01/31/21 20:00 Pulse 67 02/01/21 11:26 Resp 20 02/01/21 14:13 BP 149/82 02/01/21 11:26 Pulse Ox 98 02/01/21 11:26 Intake & Output 01/31/21 02/01/21 02/01/21 18:59 06:59 18:59 Intake Total 720 970 480 Output Total 300 Balance 420 970 480 Weight 78.2 kg Intake: Oral 720 970 480 Output: Urine 300 Other: Voiding Method Toilet Toilet # Voids 1 ABP, PAP, CO, CI - Last Documented Arterial Blood Pressure 99/38 - Labs CBC & Chem 7: 01/31/21 07:38 01/31/21 07:38 Labs: Microbiology - Last 24 Hours (Table) 01/27/21 12:00 Anaerobic Culture - Final Heart 01/27/21 12:00 Gram Stain - Final Heart Tissue Culture - Final
--- NOTE | 2021-02-01 14:34 | P.PN ---
Subjective Patient was examined on Tuesday afternoon She was sitting up in a chair She woke up early went to the bathroom No shortness of breath no chest discomfort Edema is better especially after receiving IV Lasix earlier today No dizziness no lightheadedness minimal chest discomfort No shortness of breath Blood pressure 140 / 80 mmHg pulse rate in the 70s normal respirations afebrile 97.6F Telemetry shows sinus rhythm no atrial fibrillation No PVCs Labs reviewed today Hemoglobin 10.8, stable Improvement in platelet count 146,000 Sodium 137 potassium 3.8 Stable BUN and creatinine Afebrile 97.9F pulse rate in the 70s Blood pressure 140/78 mmHg Pulse ox 99% on room air line patient attempting incentive spirometry 2-D echo study performed yesterday showed no change from the day before Small pericardial space evident, unchanged intervention Normal LV function Biatrial enlargement Impression Paroxysmal atrial fibrillation symptomatic failed drug therapy Pericardial tamponade during procedure for atrial fibrillation Successful pericardiocentesis along with reversal of heparin Immediate improvement in blood pressure and she remained stable thereafter However reappearance of fluid in the pericardial space. In the meantime K Sentra was administered to reverse ELIQUIS She was he was apparently stable but the pigtail catheter in the pericardium was clotted and would not drain blood any further Pericardial window with large drain placed in the pericardium to allow for passage of clot blood and residual blood Thereafter she has remained stable over the last several days We are not resumed ELIQUIS so far Yesterday 2-D echo and Doppler study showed no change from the immediate postoperative period Suggest IV Lasix 40 mg was given once today and she had excellent diuresis She is stable from hemodynamic standpoint and can go home today I will see her Tuesday in the afternoon in the office If she is stable I will start ELIQUIS 2.5 mg twice daily for about a week and then increase to 5 mg twice daily thereafter She will continue all her other home medications without any changes She will use an incentive spirometer as explained to her I dressed the surgical wound, removed the original dressing applied a new one Her groins were examined no hematoma, both groin sites healed well both venous and arterial punctures Objective - Vital Signs Vital signs: Vital Signs Temp 98.1 F 01/31/21 20:00 Pulse 67 02/01/21 11:26 Resp 20 02/01/21 14:13 BP 149/82 02/01/21 11:26 Pulse Ox 98 02/01/21 11:26 Intake & Output 01/31/21 02/01/21 02/01/21 18:59 06:59 18:59 Intake Total 720 970 480 Output Total 300 Balance 420 970 480 Weight 78.2 kg Intake: Oral 720 970 480 Output: Urine 300 Other: Voiding Method Toilet Toilet # Voids 1 ABP, PAP, CO, CI - Last Documented Arterial Blood Pressure 99/38 - Labs CBC & Chem 7: 01/31/21 07:38 01/31/21 07:38 Labs: Microbiology - Last 24 Hours (Table) 01/27/21 12:00 Anaerobic Culture - Final Heart 01/27/21 12:00 Gram Stain - Final Heart Tissue Culture - Final
--- NOTE | 2021-02-25 12:26 | P.EPPROC ---
- EP Procedure Note Electrophysiology Procedure Note: PROCEDURE A. fib ablation/cryoablation of the pulmonary veins/PDA DIAGNOSIS Persistent Atrial fibrillation, symptomatic, refractory to therapy recent electrical cardioversion for symptomatic A. fib Underlying sick sinus syndrome Hypertension Dilated right and left atria RESULT No left atrial appendage mass seen on intracardiac echo Successful Pulmonary vein isolation of left sided veins using cryo-ablation Complete entrance block in all left-sided veins confirmed Deflection of the left-sided esophagus performed successfully While attempting to access the right-sided veins, a drop in blood pressure secondary to pericardial effusion and tamponade The Achieve catheter was always outside and beyond the cryocatheter and the cryo sheath during the case and during accessing the right-sided pulmonary veins Expeditious pericardiocentesis with complete resolution of pericardial fluid/bl ood Reaccumulation despite reversal of heparin K centra administered Thereafter the pericardial space remained stable at around 1.2-1.9 cm with a clot around the left ventricle and right atrial free wall Intracardiac echo revealed minimal fluid around the left atria and the posterior wall of the left atrium Pericardial fluid around the right atrial free wall with likely clot demonstrated on intracardiac echo The decapolar catheter placed in the high SVC for phrenic nerve stimulation just below the level of the sternal clavicular junction This catheter was locked in position for phrenic nerve stimulation This catheter spontaneously displaced into the right atrium while we were working on accessing the right-sided veins in the left atrium Based on the fact that there was a greater amount of fluid around the right atrium and minimal fluid around the left atrium The presence of a density, likely the sealing clot in the right atrial free wall, it is quite likely that inadvertent puncture of the right atrial free wall occurred when the decapolar catheters slipped back into the right atrium Resulting in pericardial tamponade PROCEDURE DETAILS Patient was brought to the EP lab in a fasting state. Written informed consent was obtained prior to the procedure. Procedure performed under general anesthesia After initial muscle relaxant use, muscle relaxants were not given thereafter in order to assess phrenic nerve during procedure. Patient prepped and draped as per protocol Full cryo-set up with standard preparation of the cryoablation tools done. Femoral Venous access obtained on the right and left groins Venous and arterial Sheaths placed. Diagnostic catheters for the high right atrium, phrenic nerve stimulation and pacing, His bundle, RV and coronary sinus placed Intracardiac echo catheter placed. Long sheath placed in the right atrium Left and right transseptal catheterization performed under intracardiac echo guidance. Intravenous heparin with aCT above 300 Later, catheter positioning and balloon positioning in the left atrium, under intracardiac echo guidance Since the 2-D echo revealed elevated pressures in the pulmonary artery, first a right heart cath was performed PA pressure 34/5/15 mmHg Pulmonary capillary wedge pressure 14/5/11 RV pressure is 31/-2/9 RA pressures 8/-3/1 mmHg Baseline measurements Sinus cycle length 1076 ms, LA interval 123 ms, QRS 108 ms and QT 451 ms AH interval 56 ms and HV interval 44 ms Atrial pacing performed from the high right atrium and the coronary sinus RV pacing AV node Wenckebach block to 90 ms Sinus node recovery times at 600, 504 100 ms were 1409 ms, 1246 and 1306 ms respect to Transseptal catheterization performed RA pressure 8/-3/1 LA pressure 16/1/7 Transseptal catheterization performed with standard sheath. The cryoablation sheath was then placed with an over the wire exchange without any acute complications. All 4 pulmonary veins were isolated in the following sequence: Left superior followed by left inferior followed by right superior followed by right inferior The cryo-ablation balloon was placed at the os of each vein 1.5 mL of IV dye was injected to confirm an occluded vein Goal during cryoablation was to achieve complete occlusion of the pulmonary vein, achieve -30 degrees C at 30 seconds and achieve -40 degrees C at 60 seconds and a time to effect of less than 60-90 seconds, . If not the balloon was repositioned to obtain this result After completion of Cryoblation with durations from 180-240 seconds, entrance block was confirmed with the Attain circular catheter in a roving fashion around the antrum of the pulmonary veins Phrenic nerve pacing was performed from the SVC, right innominate vein area and diaphragm voltage was monitored. Diaphragmatic contractions were also monitored manually for strength of contraction. Parameter goals for each cryo freeze Complete occlusion of the appropriate vein -30 degrees C by 30 seconds -40 degrees C by 60 seconds Minimum between minus 40-55 degrees C Thaw time greater than 10 seconds Balloon visualized by intracardiac echo The esophagus was intubated. Esophageal Temperature monitoring with a CIRCA catheter formed. Esophageal deflection for hypothermia of the esophagus below 30 degrees C Left superior pulmonary vein Complete isolation, entrance block Left inferior pulmonary vein Complete isolation, entrance block Unable to complete right superior, right middle and right inferior pulmonary vein isolation on account of pericardial tamponade as described above Patient's blood pressure dropped from 120 mmHg to 75 mmHg as the right-sided veins with being accessed The decapolar catheter has slipped down into the right atrium while pacing the phrenic nerve The subxiphoid area was prepped and draped per protocol Subxiphoid access was obtained and a guidewire was successfully placed in the pericardial space expeditiously The tach was dilated and a pigtail catheter was placed 420 mL of blood was drawn There was complete resolution of pericardial fluid on intracardiac echo Protamine had already been administered, heparin had been stopped K centra was being administered but slowly on intracardiac echo was reappearance of pericardial fluid along with RV and LV clot An additional 300 mL was drawn thereafter, but the patient continued to have a pericardial space with clot around the ventricles and the right atrium While there was minimal fluid of a few millimeters around the posterior left atrium, there was at least there was at least a centimeter space along the right atrial free wall In addition there was a density in relation to the right atrial free wall likely the sealing clot. 2 units of blood were transfused IV fluid administered Femoral artery line placed, 5-Kinyarwanda sheath for blood pressure monitoring Dr. Colon the anesthesiologist was in attendance Dr. Ward the CT surgeon arrived and evaluated the patient A 2-D echo was obtained The pericardial space ranged from 1.2-1.9 cm No definite evidence for tamponade not based on Doppler inflow velocities but a definite space of up to 1.9 cm with clot around the ventricles and the right atrial free wall Decision made by Dr. Ward to take her to the OR, for pericardial window and placement of a pericardial tube The pigtail catheter that I had placed was not draining any blood since it resolved he clotted off A Thomas catheter was placed. Very good urine output was noted Patient's blood pressure ranged from 90-120 mmHg with occasional need for small doses of phenylephrine The patient was monitored in the EP lab while CT surgery arrived for around 2 hours At this time hemodynamic monitoring was performed Patient hemodynamic stable and he was maintained successfully and continuous intracardiac echocardiography performed to monitor the pericardium PROCEDURES PERFORMED Diagnostic EP study CS pacing and recording Left and right transseptal catheterization Catheter the mapping of the tachycardia (NOT 3D mapping) Intracardiac echocardiography Pulmonary vein isolation with transseptal and comprehensive EPS, [id number], left- sided veins only Urgent pericardiocentesis, subxiphoid Femoral artery catheter placement for hemodynamic monitoring and sampling
== END 2021-02-01 14:42 | disposition home or self-care (01) | DRG 270 ==
LOC: CATHEP 11:54 → 6NMEDSUR 15:49 → 2SICU 17:05 → CATHEP 18:29 → 2SICU 20:53 → 3SCARD 01-30 13:28
PROVIDERS: ADMIT Internal Medicine Clinical Cardiac Electrophysiology; ATTEND Internal Medicine Clinical Cardiac Electrophysiology
PROC: B24CZZ4 Ultrasonography of Pericardium, Transesophageal (ICD-10-PCS; principal; 2021-01-27 13:00)
PROC: 0W9D00Z Drainage of Pericardial Cavity with Drainage Device, Open Approach (ICD-10-PCS; principal; 2021-01-27 13:00)
PROC: 02K83ZZ Map Conduction Mechanism, Percutaneous Approach (ICD-10-PCS; 2021-01-27 13:00)
PROC: 0W9D3ZZ Drainage of Pericardial Cavity, Percutaneous Approach (ICD-10-PCS; 2021-01-27 13:00)
PROC: 4A023FZ Measurement of Cardiac Rhythm, Percutaneous Approach (ICD-10-PCS; 2021-01-27 13:00)
PROC: 02583ZZ Destruction of Conduction Mechanism, Percutaneous Approach (ICD-10-PCS; 2021-01-27 13:00)
PROC: 4A0234Z Measurement of Cardiac Electrical Activity, Percutaneous Approach (ICD-10-PCS; 2021-01-27 13:00)
PROC: 4A023N8 Measurement of Cardiac Sampling and Pressure, Bilateral, Percutaneous Approach (ICD-10-PCS; 2021-01-27 13:00)
DX: I31.2 Hemopericardium, not elsewhere classified (principal); J96.01 Acute respiratory failure with hypoxia; I48.19 Other persistent atrial fibrillation; I31.4 Cardiac tamponade; I31.3 Pericardial effusion (noninflammatory); I49.5 Sick sinus syndrome; I11.9 Hypertensive heart disease without heart failure; I49.3 Ventricular premature depolarization; E78.5 Hyperlipidemia, unspecified; I07.1 Rheumatic tricuspid insufficiency; M81.0 Age-related osteoporosis without current pathological fracture; K21.9 Gastro-esophageal reflux disease without esophagitis; M19.90 Unspecified osteoarthritis, unspecified site; Z79.01 Long term (current) use of anticoagulants; Z79.899 Other long term (current) drug therapy; Z96.653 Presence of artificial knee joint, bilateral; Z90.89 Acquired absence of other organs; Z98.51 Tubal ligation status; Z98.890 Other specified postprocedural states; Z80.52 Family history of malignant neoplasm of bladder; Z82.3 Family history of stroke; Z82.49 Family history of ischemic heart disease and other diseases of the circulatory system; Z83.2 Family history of diseases of the blood and blood-forming organs and certain disorders involving the immune mechanism; Z91.048 Other nonmedicinal substance allergy status
CPT/HCPCS: 71045; 80048; 80053; 82330; 82805; 84132; 85025; 85027; 85610; 85730; 86850; 86891; 86900; 86901; 86920; 87070; 87075; 87205; 88305; 93308; 93609; 93656; 93662; 94002; 94003

== ENCOUNTER 2021-02-07 10:46 | Emergency (ER) | payer MEDICARE ==
[2021-02-07 12:13] LABS: Basophils # (A) 0.1 k/uL (0-0.2); Basophils % (A) 1 %; Eosinophils # (A) 0.2 k/uL (0-0.7); Eosinophils % (A) 1 %; Lymphocytes # (A) 1.2 k/uL (1.0-4.8); Lymphocytes % (A) 12 %; MCH 30.4 pg (25.0-35.0); MCHC 34.3 g/dL (31.0-37.0); MCV 88.6 fL (80.0-100.0); Mean Platelet Volume 7.5; Monocytes # (A) 0.5 k/uL (0-1.0); Monocytes % (A) 5 %; Neutrophils # (A) 8.2 k/uL (1.3-7.7); Neutrophils % (A) 80 %; RBC 3.96 m/uL (3.80-5.40); RDW 14.5 % (11.5-15.5); WBC 10.4 k/uL (3.8-10.6)
[2021-02-07 12:20] LABS: ALT 34 U/L (4-34); AST 29 U/L (14-36); African American GFR (CKD) >90 (>60 ml/min/1.73 sqM); Albumin 3.5 g/dL (3.5-5.0); Alkaline Phosphatase 92 U/L (38-126); Anion Gap 10 mmol/L; Blood Urea Nitrogen 13 mg/dL (7-17); Calcium 9.4 mg/dL (8.4-10.2); Carbon Dioxide 25 mmol/L (22-30); Chloride 99 mmol/L (98-107); Glucose 113 mg/dL (74-99); Magnesium 1.9 mg/dL (1.6-2.3); Non-African American GFR(CKD) 83 (>60 ml/min/1.73 sqM); Platelet Count 413 k/uL (150-450); Potassium 4.1 mmol/L (3.5-5.1); Sodium 134 mmol/L (137-145); Total Bilirubin 0.4 mg/dL (0.2-1.3); Total Protein 6.1 g/dL (6.3-8.2)
--- NOTE | 2021-02-07 12:28 | ED ---
Arrhythmia/Palpitations HPI - General Chief Complaint: Arrhythmia/Palpitations Stated Complaint: elevated heart rate, dizziness Time Seen by Provider: 02/07/21 10:55 Source: patient Mode of arrival: ambulatory Limitations: no limitations - History of Present Illness Initial Comments: Patient is an 80-year-old female with past medical history of proximal A. fib who presents to the emergency department with reported palpitations and nausea. Patient was just recent hospitalized for similar complaint. She underwent an ablation by Dr. Narvaez on january 27. There was a complication with the procedure and the patient ended up developing a paracardial effusion for which she went for a pericardial window. Patient was intubated for 2 days. She was IV diuresed and discharged home on the . She states that since then she has had a poor appetite with poor oral intake. She woke this morning felt lightheaded with palpitations. Because of her recent medical care and operative complication she did present to the emergency department for evaluation by recommendation of Dr. Verma's office. Patient arrives and states she feels improved at this time. Denies any chest pain. No shortness of breath. No fevers or chills. Denies vomiting. No ripping or tearing sensation to her back. No other alleviating, precipitating or modifying factors - Related Data Home Medications Medication Instructions Recorded Confirmed Multivitamins, Thera [Multivitamin 1 tab PO DAILY 03/14/18 02/07/21 (formulary)] Calcium Carb/Vitamin D3/Vit K1 1 tab PO DAILY 08/27/19 02/07/21 [Citracal-D3 500 mg Soft Chew] Olmesartan [Benicar] 20 mg PO BID 09/21/19 02/07/21 Omeprazole [PriLOSEC] 40 mg PO AC-BRKFST 09/21/19 02/07/21 Cholecalciferol (Vitamin D3) 125 mcg PO DAILY 12/30/20 02/07/21 [Vitamin D3 (125 MCG = 5,000 IU)] Flecainide [Tambocor] 25 mg PO BID 12/30/20 02/07/21 Magnesium 250 mg PO DAILY 12/30/20 02/07/21 Rosuvastatin [Crestor] 10 mg PO DAILY 12/30/20 02/07/21 Triamterene-Hctz 37.5-25Mg 1 cap PO DAILY 12/30/20 02/07/21 [Dyazide 37.5-25 Capsule] Metoprolol Tartrate [Lopressor] 25 mg PO BID 01/20/21 02/07/21 Apixaban [Eliquis] 2.5 mg PO BID 02/07/21 02/07/21 Cephalexin [Keflex] 500 mg PO TID 02/07/21 02/07/21 Allergies Allergy/AdvReac Type Severity Reaction Status Date / Time contact metal agent Allergy Unknown Unknown Verified 02/07/21 10:54 nickel Allergy burning, Verified 02/07/21 10:54 pain Review of Systems ROS Statement: Those systems with pertinent positive or pertinent negative responses have been documented in the HPI. ROS Other: All systems not noted in ROS Statement are negative. Past Medical History Past Medical History: Atrial Fibrillation, GERD/Reflux, Hyperlipidemia, Hypertension, Osteoarthritis (OA) Additional Past Medical History / Comment(s): OSTEOPOROSIS. see DR Narvaez H & P History of Any Multi-Drug Resistant Organisms: None Reported Past Surgical History: Joint Replacement, Orthopedic Surgery, Tonsillectomy, Tubal Ligation Additional Past Surgical History / Comment(s): laxmi knee replacements, cardioversion, Open heart Past Anesthesia/Blood Transfusion Reactions: No Reported Reaction Past Psychological History: No Psychological Hx Reported Smoking Status: Never smoker Past Alcohol Use History: None Reported Past Drug Use History: None Reported - Past Family History Father Family Medical History: Cancer, CVA/TIA Additional Family Medical History / Comment(s): Father at age 80 from bladder cancer, with history of CVA. Mother Family Medical History: Myocardial Infarction ([place]) Additional Family Medical History / Comment(s): Mother at age 42 from a myocardial infarction. Brother(s) Family Medical History: Blood Disorder, CVA/TIA Additional Family Medical History / Comment(s): Patient was 4 brothers and one has history of factor V, 3 have had strokes. Patient 6 sisters with no major medical problems. Patient has one son 49 years of age with no major medical problems. Patient also has one adopted daughter. General Exam Limitations: no limitations General appearance: alert, in no apparent distress Head exam: Present: atraumatic, normocephalic, normal inspection Eye exam: Present: normal appearance, PERRL, EOMI. Absent: scleral icterus, conjunctival injection, periorbital swelling ENT exam: Present: normal exam, mucous membranes moist Neck exam: Present: normal inspection. Absent: tenderness, meningismus, lymphadenopathy Respiratory exam: Present: normal lung sounds bilaterally. Absent: respiratory distress, wheezes, rales, rhonchi, stridor Cardiovascular Exam: Present: regular rate, normal rhythm, normal heart sounds. Absent: systolic murmur, diastolic murmur, rubs, gallop, clicks GI/Abdominal exam: Present: soft, normal bowel sounds. Absent: distended, tenderness, guarding, rebound, rigid Extremities exam: Present: normal inspection, full ROM, normal capillary refill. Absent: tenderness, pedal edema, joint swelling, calf tenderness Back exam: Present: normal inspection Neurological exam: Present: alert, oriented X3, CN II-XII intact Psychiatric exam: Present: normal affect, normal mood Skin exam: Present: warm, dry, intact, normal color. Absent: rash Course Vital Signs 02/07/21 02/07/21 02/07/21 10:51 13:17 14:08 Temperature 98.2 F 98.3 F 98.6 F Pulse Rate 107 H 92 87 Respiratory 20 14 16 Rate Blood Pressure 141/86 113/73 132/71 O2 Sat by Pulse 96 96 96 Oximetry EKG Findings - EKG Comments: EKG Findings:: EKG demonstrates normal sinus rhythm with a ventricular rate of 97. Irritable 184. QRS 88. QTC of 436. Inverted t wave with mild st depression in lead 2, 3, aVF with inverted T waves. Medical Decision Making - Medical Decision Making Upon arrival patient is placed into room 1. She is hooked to continuous pulse ox and cardiac monitoring. A thorough history and physical exam was performed. 12-lead EKG was performed which demonstrates normal sinus rhythm. Laboratory studies are conducted and reviewed. Troponin is negative. Chest x-rays performed which demonstrates mild interstitial prominence and trace effusion. The results are discussed with the patient. She continues to remain asymptomatic at this time. I did recommend hospitalization for possible echo however the patient wants to go home at this time. I did call and speak with Dr. Stuart who is aware of the patient's presence in the emergency department. States he'll follow up with the patient this week. Patient does state that she has appointment later this week. The patient is a new or worsening symptoms she is to return to the emergency department. Patient agreed to this. She is given written and verbal discharge instructions and discharged home in stable condition - Lab Data Result diagrams: 02/07/21 11:43 02/07/21 11:43 Lab Results 02/07/21 02/07/21 02/07/21 Range/Units 11:43 11:43 11:43 WBC 10.4 (3.8-10.6) k/uL RBC 3.96 (3.80-5.40) m/uL Hgb 12.0 (11.4-16.0) gm/dL Hct 35.0 (34.0-46.0) % MCV 88.6 (80.0-100.0) fL MCH 30.4 (25.0-35.0) pg MCHC 34.3 (31.0-37.0) g/dL RDW 14.5 (11.5-15.5) % Plt Count 413 D (150-450) k/uL MPV 7.5 Neutrophils % 80 % Lymphocytes % 12 % Monocytes % 5 % Eosinophils % 1 % Basophils % 1 % Neutrophils # 8.2 H (1.3-7.7) k/uL Lymphocytes # 1.2 (1.0-4.8) k/uL Monocytes # 0.5 (0-1.0) k/uL Eosinophils # 0.2 (0-0.7) k/uL Basophils # 0.1 (0-0.2) k/uL PT 10.1 (9.0-12.0) sec INR 0.9 (<1.2) APTT 24.3 (22.0-30.0) sec Sodium 134 L (137-145) mmol/L Potassium 4.1 (3.5-5.1) mmol/L Chloride 99 (98-107) mmol/L Carbon Dioxide 25 (22-30) mmol/L Anion Gap 10 mmol/L BUN 13 (7-17) mg/dL Creatinine 0.69 (0.52-1.04) mg/dL Est GFR (CKD-EPI)AfAm >90 (>60 ml/min/1.73 sqM) Est GFR (CKD-EPI)NonAf 83 (>60 ml/min/1.73 sqM) Glucose 113 H (74-99) mg/dL Calcium 9.4 (8.4-10.2) mg/dL Magnesium 1.9 (1.6-2.3) mg/dL Total Bilirubin 0.4 (0.2-1.3) mg/dL AST 29 (14-36) U/L ALT 34 (4-34) U/L Alkaline Phosphatase 92 (38-126) U/L Troponin I (0.000-0.034) ng/mL NT-Pro-B Natriuret Pep pg/mL Total Protein 6.1 L (6.3-8.2) g/dL Albumin 3.5 (3.5-5.0) g/dL TSH 0.791 (0.465-4.680) mIU/L 02/07/21 02/07/21 Range/Units 11:43 11:43 WBC (3.8-10.6) k/uL RBC (3.80-5.40) m/uL Hgb (11.4-16.0) gm/dL Hct (34.0-46.0) % MCV (80.0-100.0) fL MCH (25.0-35.0) pg MCHC (31.0-37.0) g/dL RDW (11.5-15.5) % Plt Count (150-450) k/uL MPV Neutrophils % % Lymphocytes % % Monocytes % % Eosinophils % % Basophils % % Neutrophils # (1.3-7.7) k/uL Lymphocytes # (1.0-4.8) k/uL Monocytes # (0-1.0) k/uL Eosinophils # (0-0.7) k/uL Basophils # (0-0.2) k/uL PT (9.0-12.0) sec INR (<1.2) APTT (22.0-30.0) sec Sodium (137-145) mmol/L Potassium (3.5-5.1) mmol/L Chloride (98-107) mmol/L Carbon Dioxide (22-30) mmol/L Anion Gap mmol/L BUN (7-17) mg/dL Creatinine (0.52-1.04) mg/dL Est GFR (CKD-EPI)AfAm (>60 ml/min/1.73 sqM) Est GFR (CKD-EPI)NonAf (>60 ml/min/1.73 sqM) Glucose (74-99) mg/dL Calcium (8.4-10.2) mg/dL Magnesium (1.6-2.3) mg/dL Total Bilirubin (0.2-1.3) mg/dL AST (14-36) U/L ALT (4-34) U/L Alkaline Phosphatase (38-126) U/L Troponin I 0.013 (0.000-0.034) ng/mL NT-Pro-B Natriuret Pep 970 pg/mL Total Protein (6.3-8.2) g/dL Albumin (3.5-5.0) g/dL TSH (0.465-4.680) mIU/L Disposition Clinical Impression: Palpitations, Nausea Disposition: HOME SELF-CARE Condition: Stable Instructions (If sedation given, give patient instructions): Heart Palpitations (ED) Additional Instructions: Please follow-up with Dr. Narvaez and Dr. Stuart this week. Return to the emergency room for any new or worsening symptoms Is patient prescribed a controlled substance at d/c from ED?: No Referrals: Edvin Stuart MD [Primary Care Provider] - 1-2 days Víctor Narvaez MD [STAFF PHYSICIAN] - 1-2 days Time of Disposition: 13:54
[2021-02-07 12:34] LABS: INR 0.9 (<1.2); Partial Thromboplastin Time 24.3 sec (22.0-30.0); Prothrombin Time 10.1 sec (9.0-12.0)
--- NOTE | 2021-02-07 13:26 | XR ---
EXAMINATION TYPE: XR chest 2V DATE OF EXAM: 02/07/2021 COMPARISON: 01/30/2021, 01/01/2021 HISTORY: 80 year-old female dysrhythmia TECHNIQUE: PA and lateral views FINDINGS: Heart upper limits of normal in size. Mild interstitial prominence. There appears to be a trace effus ion on lateral view. Some strandy atelectasis also noted at the left base. The previous pericardial d rain is not well seen. IMPRESSION: Previous pericardial drain not well seen. Mild interstitial prominence and a trace effusion on the la teral view. Correlated to exclude mild pulmonary vascular congestion.
[2021-02-07 14:10] VITALS: BP 132/71; PULSE 87; RESP 16; TEMP 98.6
== END 2021-02-07 14:10 | disposition home or self-care (01) ==
LOC: EC 10:46
DX: R00.2 Palpitations (principal); R11.0 Nausea; R42 Dizziness and giddiness; E78.5 Hyperlipidemia, unspecified; I10 Essential (primary) hypertension; I48.91 Unspecified atrial fibrillation; K21.9 Gastro-esophageal reflux disease without esophagitis; M19.90 Unspecified osteoarthritis, unspecified site; Z79.899 Other long term (current) drug therapy; Z79.01 Long term (current) use of anticoagulants; Z91.09 Other allergy status, other than to drugs and biological substances
CPT/HCPCS: 36415; 71046; 80053; 83735; 83880; 84443; 84484; 85025; 85610; 85730; 93005; 99285

== ENCOUNTER 2021-10-22 11:51 | Day surgery (SDC) | payer MEDICARE ==
[~2021-10-22 11:51] MED LIST changes: -ALBUMIN HUMAN 25% 50 ML in EMPTY BAG 1 BAG IVPB ONE; -ALBUMIN HUMAN 5% 500 ML in EMPTY BAG 1 BAG IVPB ONE; -CALCIUM CHLORIDE 100 MG/ML 10 ML SYRINGE IVP ONE; -CHLORHEXIDINE GLUCONATE 15 ML CUP MUCOUS MEM ONE; -CLEVIDIPINE BUTYRATE 25 MG in EMPTY BAG 1 BAG IV SCH; -ELECTROLYTE-A SOLUTION 1,000 ML with POTASSIUM CHLORIDE 100 MEQ, MAGNESIUM SULFATE 16 M... IV ONE; -ELECTROLYTE-A SOLUTION 1,000 ML with POTASSIUM CHLORIDE 40 MEQ, MAGNESIUM SULFATE 16 ME... IV ONE; -HEPARIN SODIUM 1,000 UN/ML (10ML VL) IV ONE; -HEPARIN SODIUM,PORCINE 5,000 UNIT in SODIUM CHLORIDE 0.9% 500 ML 500 ML IV ONE; -INSULIN REGULAR 100 UNIT in SODIUM CHLORIDE 0.9% 100 ML IV ONE; -LACTATED RINGERS 1,000 ML IV SCH; -MAGNESIUM SULFATE SYG 4.06 MEQ/ML SYRINGE IV ONE; -MANNITOL 25% 12.5 GM/50 ML VIAL IV ONE; -NITROGLYCERIN-D5W PMX 25 MG/250 ML BTL IV ONE; -NITROGLYCERIN-D5W PMX 50 MG in DEXTROSE/WATER 1 250ML.BAG IV SCH; -NOREPINEPHRINE 4 MG in SODIUM CHLORIDE 0.9% 250 ML IV ONE; -PAPAVERINE 360 MG in SODIUM CHLORIDE 0.9% 90 ML IV ONE; -PHENYLEPHRINE 10 MG/ML VIAL IV ONE; -PHENYLEPHRINE 40 MG in SODIUM CHLORIDE 0.9% 250 ML IV ONE; -PROTAMINE SULFATE 10 MG/ML 25 ML VIAL IV ONE; -PROTAMINE SULFATE 250 MG in EMPTY BAG 1 BAG IV ONE; -SODIUM BICARB 8.4% 50 ML SYR (1 MEQ/ML) IV ONE; -TRANEXAMIC ACID 2,000 MG in SODIUM CHLORIDE 0.9% 80 ML IV ONE; -ceFAZolin 1,000 MG in SODIUM CHLORIDE 0.9% IRRIGATIO 1,000 ML IRRIGATION ONE
[2021-10-22 12:37] LABS: Basophils # (A) 0.1 k/uL (0-0.2); Basophils % (A) 1 %; Eosinophils # (A) 0.1 k/uL (0-0.7); Eosinophils % (A) 1 %; HCT 41.7 % (34.0-46.0); HGB 13.2 gm/dL (11.4-16.0); Lymphocytes # (A) 2.5 k/uL (1.0-4.8); Lymphocytes % (A) 30 %; MCH 29.8 pg (25.0-35.0); MCHC 31.8 g/dL (31.0-37.0); Mean Platelet Volume 7.6; Monocytes # (A) 0.5 k/uL (0-1.0); Monocytes % (A) 7 %; Neutrophils # (A) 4.8 k/uL (1.3-7.7); Neutrophils % (A) 59 %; Platelet Count 220 k/uL (150-450); RBC 4.43 m/uL (3.80-5.40); WBC 8.2 k/uL (3.8-10.6)
[2021-10-22] MEDS ORDERED: PROPOFOL 10 MG/ML 20 ML VIAL IV ONE (13:28)
[2021-10-22] MEDS ORDERED: GLYCOPYRROLATE 0.2 MG/ML 2 ML VIAL ONE (13:28)
[2021-10-22] MEDS ORDERED: MIDAZOLAM 2 MG/2 ML VIAL ONE (13:28)
[2021-10-22] MEDS ORDERED: ePHEDrine 50 MG/ML 1 ML VIAL ONE (13:28)
[2021-10-22] MEDS ORDERED: fentaNYL (PF) 50 MCG/ML 2 ML AMP ONE (13:28)
[2021-10-22] MEDS ORDERED: AMIODARONE 50 MG/ML 3 ML VIAL IV ONE ×2 (13:28→16:30)
[2021-10-22] MEDS ORDERED: HEPARIN SODIUM,PORCINE 10,000 UNIT/ML 1 ML VIAL ONE (13:28)
[2021-10-22] MEDS ORDERED: SUCCINYLCHOLINE CHLORIDE 100 MG/5 ML SYR IV ONE (13:28)
[2021-10-22] MEDS ORDERED: PHENYLEPHRINE-0.9% NACL SYG 1,000 MCG/10 ML SYRINGE ONE (13:28)
[2021-10-22] MEDS ORDERED: HEPARIN SOD,PORK IN 0.45% NACL 25,000 UNIT in 0.45% NACL 1 250ML.BAG IV ONE (14:00)
[2021-10-22] MEDS ORDERED: LIDOCAINE 1% INJ 10MG/ML (20 ML MDV) SQ ONE (14:13)
[2021-10-22] MEDS ORDERED: IOPAMIDOL-370 100ML BTL INJ ONE (15:33)
[2021-10-22] MEDS ORDERED: DEXTROSE 5% IN WATER 100 ML BAG IV ONE (16:30)
[2021-10-22] MEDS ORDERED: ACETAMINOPHEN TAB 325 MG TAB PO PRN (17:44)
[2021-10-22] MEDS ORDERED: SODIUM CHLORIDE 0.9% 500 ML 500 ML IV ONE (18:05)
--- NOTE | 2021-10-22 18:09 | P.EPPROC ---
- EP Procedure Note Electrophysiology Procedure Note: PROCEDURE A. fib ablation, PVI plus roofline DIAGNOSIS Paroxysmal Atrial fibrillation, symptomatic, refractory to therapy RESULT No left atrial appendage mass seen on intracardiac echo Left ventricular hypertrophy with preserved function Successful A. fib ablation/pulmonary vein isolation of all veins using cryo- ablation Complete entrance block in all 4 veins confirmed inducible atrial tachycardia, multiple different morphologies which degenerated into atrial fibrillation Left atrial Roofline, linear ablation No evidence for phrenic nerve injury Esophageal deflection NO Electrical cardioversion with a synchronized shock across the chest YES PROCEDURE DETAILS Patient was brought to the EP lab in a fasting state after obtaining written informed consent. Procedure performed under general anesthesia Esophagus was intubated. Esophageal temperature monitoring with circa catheter. Esophageal deflection with an endoscope to avoid hypothermia of the esophagus. After initial muscle relaxant use, muscle relaxants were not given thereafter in order to assess phrenic nerve during procedure. Patient prepped and draped as per protocol Cryo ablation-set up with standard preparation of the cryoablation tools done. Femoral Venous access obtained on the right and left groins and sheaths placed Diagnostic catheters for the high right atrium, phrenic nerve stimulation and pacing, His bundle, coronary sinus placed Intracardiac echo catheter placed. Long sheath placed in the right atrium Left and right transseptal catheterization performed under intracardiac echo guidance. Intravenous heparin with aCT above 300 Later, catheter positioning and balloon positioning in the left atrium and pulmonary veins, under intracardiac echo guidance Diagnostic EP study with coronary sinus pacing and recording Baseline measurements: Sinus cycle length 761 ms, SC interval 174, QRS 93 and QT 484 ms AH 76, HV 46 Transseptal catheterization performed RA pressure 15/7/10 LA pressure 52/10/18 Transseptal catheterization performed with standard sheath. The cryoablation sheath was then placed with an over the wire exchange without any acute complications. The cryoablation balloon was placed in the office of each pulmonary vein and all 4 pulmonary veins were isolated. IV dye was injected to confirm occlusion. Goal: achieve complete occlusion of the pulmonary vein, achieve -30 degrees C at 30 seconds and achieve -40 degrees C at 60 seconds and a time to effect of less than 60 seconds. If not, the balloon was repositioned to obtain this result After completion of Cryoblation with durations from 180-240 seconds, entrance block was confirmed with the Attain circular catheter in a roving fashion around the antrum of the pulmonary veins Phrenic nerve pacing was performed from the SVC, right innominate vein area and diaphragm voltage was monitored. Diaphragmatic contractions were also monitored manually for strength of contraction. At the end of the procedure the Achieve catheter was once again used to check for entrance block Burst stimulation was performed from the coronary sinus This resulted in induction of an atrial tachycardia the cycle length 300 ms Atrial pacing was performed for entrainment but it degenerated the second atrial tachycardia with eccentric activation Subsequently degenerated 100 and organized atrial fibrillation Electrical cardioversion was performed since the patient was hypertensive during atrial fibrillation Immediate recurrence of atrial fibrillation IV amiodarone used 150 mg electrical cardioversion performed thereafter Following that the roofline was made from the left superior to the right superior pulmonary veins Complete line of block with termination of atrial electrograms along the roof and posterior wall Phrenic nerve stimulation was performed to confirm diaphragmatic stimulation the end of the procedure Cine fluoroscopy was performed at the very end of the procedure to confirm movement of both diaphragms with inspiration and expiration At the end of the procedure the patient was extubated Venous sheaths were removed and hemostasis assured with a closure device PROCEDURES PERFORMED Diagnostic EP study CS pacing and recording Left and right transseptal catheterization Catheter the mapping of the tachycardia Intracardiac echocardiography Pulmonary vein isolation with transseptal and comprehensive EPS, [id number] Left atrial roof line, [id number] Electrical cardioversion with a synchronized shock across the chest [id number]
[2021-10-22] MEDS ORDERED: ACETAMINOPHEN IV (For NPO) 1,000 MG in EMPTY BAG 1 BAG IVPB ONE (18:15)
[2021-10-22] MEDS ORDERED: ATORVASTATIN 40 MG TAB PO SCH (21:00)
[2021-10-22] MEDS: FLECAINIDE 50 MG TAB PO SCH (21:37)
[2021-10-22] MEDS: APIXABAN 5 MG TAB PO SCH (21:37)
[2021-10-22] MEDS: LOSARTAN 50 MG TAB PO SCH (21:38)
[2021-10-23] MEDS ORDERED: PANTOPRAZOLE 40 MG TABLET PO SCH (07:30)
[2021-10-23] MEDS ORDERED: SODIUM CHLORIDE 0.9% NEBULIZ 3 ML INHALATION ONE (08:00)
--- NOTE | 2021-10-23 08:04 | P.DS ---
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 25 mg twice daily Increase ELIQUIS 5 g twice daily for at least a month Instructions given Continue other medications Follow-up within 1-2 weeks Plan - Discharge Summary Discharge Rx Participant: No New Discharge Prescriptions: Continue Multivitamins, Thera [Multivitamin (formulary)] 1 tab PO DAILY Calcium Carb/Vitamin D3/Vit K1 [Citracal-D3 500 mg Soft Chew] 1 tab PO DAILY Olmesartan [Benicar] 10 mg PO BID Omeprazole [PriLOSEC] 20 mg PO AC-BRKFST Magnesium 340 mg PO DAILY Cholecalciferol (Vitamin D3) [Vitamin D3 (125 MCG = 5,000 IU)] 125 mcg PO DAILY Flecainide [Tambocor] 37.5 mg PO TID Triamterene-Hctz 37.5-25Mg [Dyazide 37.5-25 Capsule] 1 cap PO DAILY Apixaban [Eliquis] 2.5 mg PO BID Rosuvastatin [Crestor] 20 mg PO HS Discharge Medication List Multivitamins, Thera [Multivitamin (formulary)] 1 tab PO DAILY 03/14/18 [History] Calcium Carb/Vitamin D3/Vit K1 [Citracal-D3 500 mg Soft Chew] 1 tab PO DAILY 08/27/19 [History] Olmesartan [Benicar] 10 mg PO BID 09/21/19 [History] Omeprazole [PriLOSEC] 20 mg PO AC-BRKFST 09/21/19 [History] Cholecalciferol (Vitamin D3) [Vitamin D3 (125 MCG = 5,000 IU)] 125 mcg PO DAILY 12/30/20 [History] Magnesium 340 mg PO DAILY 12/30/20 [History] Triamterene-Hctz 37.5-25Mg [Dyazide 37.5-25 Capsule] 1 cap PO DAILY 12/30/20 [History] Apixaban [Eliquis] 2.5 mg PO BID 02/07/21 [History] Flecainide [Tambocor] 37.5 mg PO TID 10/22/21 [History] Rosuvastatin [Crestor] 20 mg PO HS 10/22/21 [History] Follow up Appointment(s)/Referral(s): Víctor Narvaez MD [STAFF PHYSICIAN] - 1 Week Activity/Diet/Wound Care/Special Instructions: Post EP study - Ablation instructions 1. Keep access sites dry for 2 days. 2. No heavy lifting or straining for 2 days. 3. Avoid bending the hips repeatedly for 2 days. 4. You may go up and down stairs slowly Call if the following is noted 1. Bleeding, increasing swelling or pain at the access sites. 2. Increasing chest discomfort, especially upon taking a deep breath. 3. Increasing shortness of breath, at rest or with exertion. 4. Undue cough / phlegm 5. Difficulty or pain while swallowing. 6. Pain or change in color in the extremities. 7. Fever, chills, rigors. 8. Increasing headache or neurologic symptoms. 9. Dizziness, fainting, palpitations Continue ELIQUIS 5 mg twice daily for now Reduce flecainide to 25 mg twice daily Discharge Disposition: HOME SELF-CARE
[2021-10-23 08:05] VITALS: BP 121/74; RESP 16; TEMP 98.2
[2021-10-23] MEDS ORDERED: TRIAMTERENE-HCTZ 37.5-25MG 1 EACH CAP PO SCH (09:00)
[2021-10-23] MEDS: APIXABAN 5 MG TAB PO SCH (09:21)
[2021-10-23] MEDS: FLECAINIDE 50 MG TAB PO SCH (09:21)
[2021-10-23] MEDS: LOSARTAN 50 MG TAB PO SCH (09:21)
[2021-10-23 10:09] VITALS: PULSE 82
== END 2021-10-23 12:47 | disposition home or self-care (01) ==
LOC: CATHEP 11:51 → 6NMEDSUR 17:15 → CATHEP 10-23 12:47
PROVIDERS: ATTEND Internal Medicine Clinical Cardiac Electrophysiology
DX: I48.0 Paroxysmal atrial fibrillation (principal); I49.5 Sick sinus syndrome; I10 Essential (primary) hypertension; I31.4 Cardiac tamponade; I51.7 Cardiomegaly; Z20.822 Contact with and (suspected) exposure to COVID-19; E78.5 Hyperlipidemia, unspecified; K21.9 Gastro-esophageal reflux disease without esophagitis; Z96.653 Presence of artificial knee joint, bilateral; Z79.01 Long term (current) use of anticoagulants; Z79.899 Other long term (current) drug therapy
CPT/HCPCS: 94640; 92960; 93656; 85025; 87635; C1894 ×2; C1769 ×5; C1760; C1730 ×2; C1759; C1893; C1733; C1766; J2250; J1644 ×2; J0282; J2001; J3010; J2370; J0330; J2704; Q9967

== ENCOUNTER → 2021-12-08 | Outpatient (CLI) | payer MEDICARE ==
--- NOTE | 2021-12-09 09:04 | MM ---
Reason for Exam: Screening (asymptomatic). Last mammogram was performed 1 year(s) and 3 month(s) ago. Patient History: Menarche at age 12. First Full-Term at age 30. Late child-bearing (after 30). Postmenopausal. 1989, Benign Excisional Biopsy on the right side. Paternal aunt had breast cancer, age 70. Sister had breast cancer, age 45. Risk Values: Anabel 5 year model risk: 3.9%. NCI Lifetime model risk: 5.5%. Prior Study Comparison: 01/26/2018 Bilateral Screening Mammogram, [facility]. 01/29/2019 Bilateral Screening Mammogram, [facility]. 09/15/2020 Bilateral Screening Mammogram, [facility]. Tissue Density: The breast tissue is heterogeneously dense. This may lower the sensitivity of mammography. Findings: Analyzed By CAD. There is no suspicious group of microcalcifications. Increasing asymmetric density upper outer right breast zone B. Additional views are recommended. Overall Assessment: Incomplete: need additional imaging evaluation, BI-RAD 0 Management: Diagnostic Mammogram of the right breast. A clinical breast exam by your physician is recommended on an annual basis and results should be correlated with mammographic findings. Electronically signed and approved by: Shayan Maier M.D. Radiologis
== END | disposition home or self-care (01) ==
LOC: RADMAMWWP 07:30
PROVIDERS: ATTEND Internal Medicine Geriatric Medicine
DX: Z12.31 Encounter for screening mammogram for malignant neoplasm of breast (principal); Z78.0 Asymptomatic menopausal state; Z80.3 Family history of malignant neoplasm of breast
CPT/HCPCS: 77063; 77067

== ENCOUNTER → 2021-12-11 | Outpatient (CLI) | payer MEDICARE ==
--- NOTE | 2021-12-11 10:06 | MM ---
Reason for Exam: Additional evaluation requested from abnormal screening. Last screening mammogram was performed less than 1 month ago. Patient History: Menarche at age 12. First Full-Term at age 30. Late child-bearing (after 30). Postmenopausal. 1989, Benign Excisional Biopsy on the right side. Paternal aunt had breast cancer, age 70. Sister had breast cancer, age 45. Risk Values: Anabel 5 year model risk: 3.9%. NCI Lifetime model risk: 5.5%. Prior Study Comparison: 05/22/2015 Bilateral Screening Mammogram, [facility]. 01/26/2018 Bilateral Screening Mammogram, [facility]. 01/29/2019 Bilateral Screening Mammogram, [facility]. 09/15/2020 Bilateral Screening Mammogram, [facility]. 12/08/2021 Bilateral MG 3D screening mammo w/cad, [facility]. Tissue Density: Right: The breast tissue is heterogeneously dense. This may lower the sensitivity of mammography. Findings: Analyzed By CAD. Density in question upper outer right breast is improved on spot compression images. Precautionary six-month follow-up mammography is advised. Overall Assessment: Probably benign, BI-RAD 3 Management: Diagnostic Mammogram of the right breast in 6 months. A clinical breast exam by your physician is recommended on an annual basis and results should be correlated with mammographic findings. This exam should not preclude additional follow-up of suspicious palpable abnormalities. Results were given to the patient verbally at the time of exam. Electronically signed and approved by: Shayan Maier M.D. Radiologis
== END | disposition home or self-care (01) ==
LOC: RADMAMWWP 09:33
PROVIDERS: ATTEND Internal Medicine Geriatric Medicine
DX: R92.8 Other abnormal and inconclusive findings on diagnostic imaging of breast (principal); Z78.0 Asymptomatic menopausal state; Z80.3 Family history of malignant neoplasm of breast
CPT/HCPCS: 77065; G0279; 77061

== ENCOUNTER 2021-12-28 00:30 | Observation (INO) | payer MEDICARE ==
[2021-12-28] MEDS ORDERED: SODIUM CHLORIDE 0.9% 500 ML 500 ML IV ONE (00:46)
--- NOTE | 2021-12-28 00:46 | ED ---
Chest Pain HPI - General Stated Complaint: Chest/Back Pain Time Seen by Provider: 12/28/21 00:36 Source: RN notes reviewed - History of Present Illness Initial Comments: This is a pleasant 81-year-old female with a history of atrial fibrillation. Patient presents to the emergency department today stating that she developed racing heart, chest pain which is described as sharp in nature. Patient also states it seems to radiate to the back and her shoulder blade area. Some generalized weakness. Patient also complaining of some general body aches. Patient has a dry cough which she states might be from her blood pressure medication. Symptoms started about 10 PM. Although the patient states she did not feel well all day. Positive, GENERALIZED weakness, fatigue, myalgias. No headache, no fever or chills, no changes in vision or hearing, no sore throat or difficulty with speech, no neck pain, mild shortness of breath, no abdominal pain, nausea but no vomiting, no changes in urination or bowel movements, no numbness or tingling, no extremity pain, no skin rashes or lesions. Past medical, surgical, social, and family history reviewed. Patient has a history of atrial fibrillation, hypertension, hyperlipidemia, family history of cancer and cerebrovascular disease. MD Complaint: chest pain - Related Data Home Medications Medication Instructions Recorded Confirmed Multivitamins, Thera [Multivitamin 1 tab PO DAILY 03/14/18 10/22/21 (formulary)] Calcium Carb/Vitamin D3/Vit K1 1 tab PO DAILY 08/27/19 10/22/21 [Citracal-D3 500 mg Soft Chew] Olmesartan [Benicar] 10 mg PO BID 09/21/19 10/22/21 Omeprazole [PriLOSEC] 20 mg PO AC-BRKFST 09/21/19 10/22/21 Cholecalciferol (Vitamin D3) 125 mcg PO DAILY 12/30/20 10/22/21 [Vitamin D3 (125 MCG = 5,000 IU)] Magnesium 340 mg PO DAILY 12/30/20 10/22/21 Triamterene-Hctz 37.5-25Mg 1 cap PO DAILY 12/30/20 10/22/21 [Dyazide 37.5-25 Capsule] Apixaban [Eliquis] 2.5 mg PO BID 02/07/21 10/22/21 Flecainide [Tambocor] 37.5 mg PO TID 10/22/21 10/22/21 Rosuvastatin [Crestor] 20 mg PO HS 10/22/21 10/22/21 Allergies Allergy/AdvReac Type Severity Reaction Status Date / Time contact metal agent Allergy Unknown Unknown Verified 12/28/21 00:53 adhesive tape Allergy Rash/Hives Verified 12/28/21 00:53 nickel Allergy burning, Verified 12/28/21 00:53 pain Review of Systems ROS Statement: Those systems with pertinent positive or pertinent negative responses have been documented in the HPI. ROS Other: All systems not noted in ROS Statement are negative. EKG Findings - EKG Comments: EKG Findings:: EKG done at 12:40 AM reveals sinus tachycardia with frequent PVCs. Ventricular rate 103. Normal intervals. No evidence for acute ST elevation or ST depression. Baseline artifact noted. When compared to the previous study from October 2021 this is a very similar appearance. Past Medical History Past Medical History: Atrial Fibrillation, GERD/Reflux, Hyperlipidemia, Hypertension, Osteoarthritis (OA) Additional Past Medical History / Comment(s): OSTEOPOROSIS. see DR Narvaez H & Esther Jacob in 2021. History of Any Multi-Drug Resistant Organisms: None Reported Past Surgical History: Joint Replacement, Orthopedic Surgery, Tonsillectomy, Tubal Ligation Additional Past Surgical History / Comment(s): laxmi knee replacements, cardioversion, Open heart Past Anesthesia/Blood Transfusion Reactions: No Reported Reaction Additional Past Anesthesia/Blood Transfusion Reaction / Comment(s): Hx. of N/V. Past Psychological History: No Psychological Hx Reported Smoking Status: Never smoker Past Alcohol Use History: Occasional Additional Past Alcohol Use History / Comment(s): Patient is a lifelong nonsmoker, no alcohol use, no illicit drug use or marijuana use. Patient does not require CPAP, oxygen. She is ambulatory without equipment. Past Drug Use History: None Reported - Past Family History Father Family Medical History: Cancer, CVA/TIA Additional Family Medical History / Comment(s): Father at age 80 from bladder cancer, with history of CVA. Mother Family Medical History: Myocardial Infarction (OK) Additional Family Medical History / Comment(s): Mother at age 42 from a myocardial infarction. Brother(s) Family Medical History: Blood Disorder, CVA/TIA Additional Family Medical History / Comment(s): Patient was 4 brothers and one has history of factor V, 3 have had strokes. Patient 6 sisters with no major medical problems. Patient has one son 49 years of age with no major medical problems. Patient also has one adopted daughter. General Exam - General Exam Comments Initial Comments: It appears to be mild distress. Does not appear to be toxic. Appears to be adequately perfused at this time. Moist mucous membranes. Capillary refill less than 2 seconds vital signs noted. Patient noted to be hypertensive at greater than 190 or greater than 110. General appearance: in distress Head exam: Present: atraumatic, normocephalic, normal inspection Eye exam: Present: normal appearance, PERRL, EOMI. Absent: scleral icterus, conjunctival injection, periorbital swelling ENT exam: Present: normal exam, normal oropharynx, mucous membranes moist, normal external ear exam. Absent: mucous membranes dry Neck exam: Present: normal inspection, full ROM. Absent: tenderness, meningismus, lymphadenopathy Respiratory exam: Present: normal lung sounds bilaterally. Absent: respiratory distress, wheezes, rales, rhonchi, stridor Cardiovascular Exam: Present: normal rhythm, tachycardia, irregular rhythm, normal heart sounds. Absent: regular rate, systolic murmur, diastolic murmur, rubs, gallop, clicks GI/Abdominal exam: Present: soft, normal bowel sounds. Absent: distended, tenderness, guarding, rebound, rigid Extremities exam: Present: normal inspection, full ROM, normal capillary refill. Absent: tenderness, pedal edema, joint swelling, calf tenderness Back exam: Present: normal inspection Neurological exam: Present: alert, oriented X3, CN II-XII intact Psychiatric exam: Present: normal affect, normal mood Skin exam: Present: warm, dry, intact, normal color. Absent: rash Course Vital Signs 12/28/21 12/28/21 12/28/21 00:48 01:06 03:18 Temperature 98.6 F 98.8 F Pulse Rate 98 85 Respiratory 17 20 Rate Blood Pressure 156/87 O2 Sat by Pulse 98 94 L Oximetry - Reevaluation(s) Reevaluation #1: 12/28/21 02:25 Patient was sent to computed tomography scan pending renal function to rule out aortic dissection Reevaluation #2: 12/28/21 02:47 Patient reevaluated, states that the pain is only very mildly distended. I did offer morphine while we wait for the CTA of the aorta. Patient requesting only Tylenol. States that she does not want morphine as she has had some discordant reactions to it in the past Chest Pain MDM - MDM Patient says chest pain palpitations, fatigue and general body aches. Symptomology could be related to viral syndrome such as COVID-19. However A. fib with RVR possible as well. Pain does radiate to the back. This does bring into play aortic pathology. Cardiopulmonary evaluation initiated. We will o rder a CT aortogram. Patient had an echocardiogram in January 2021 revealing trivial pericardial effusion. Apparently at that time she also had electro physiology procedure, attempted ablation. According to the this has not worked she continues to have these episodes. Patient's CBC is normal. Patient's chemistry profile reveals a potassium of 3.2. Magnesium 1.7. Troponin is negative. BNP 877 which is low for the patient. COVID-19 testing is negative. CTA of the chest shows no evidence of pulmonary embolism or arterial aneurysm/dissection. There is a small pericardial effusion, mild atelectasis at the lung bases no other acute findings as read by radiology 1 cm calcified granuloma left lower lobe, moderate cardiomegaly. Aspirin be given. We'll apply 1/2 inch of nitro paste as the patient currently is pain-free. Patient will be admitted for chest pain. Note that the patient is already anticoagulated on Xarelto. Case will be discussed with [facility], Dr. Justice, for admission The case was discussed in detail with ED attending physician. Presentation, findings, treatment plan discussed in detail. Supervising physician Dr. Bass Disposition Clinical Impression: Chest pain, Hypokalemia Disposition: ADMITTED IP TO THIS HOSP Condition: Stable Is patient prescribed a controlled substance at d/c from ED?: No Time of Disposition: 03:35
--- NOTE | 2021-12-28 01:05 | XR ---
EXAMINATION TYPE: XR chest 1V portable DATE OF EXAM: 12/28/2021 COMPARISON: 02/07/2021 HISTORY: Dysrhythmia TECHNIQUE: FINDINGS: Heart is enlarged. No heart failure. There is some coarsening of interstitial markings. No pleural effusion. IMPRESSION: Cardiomegaly. Mild pulmonary fibrotic changes. No change compared to old exam.
[2021-12-28 01:51] LABS: Basophils % (A) 0 %; Eosinophils # (A) 0.1 k/uL (0-0.7); Eosinophils % (A) 1 %; HCT 38.3 % (34.0-46.0); HGB 12.9 gm/dL (11.4-16.0); Lymphocytes # (A) 0.8 k/uL (1.0-4.8); Lymphocytes % (A) 10 %; MCH 31.4 pg (25.0-35.0); MCHC 33.6 g/dL (31.0-37.0); MCV 93.4 fL (80.0-100.0); Mean Platelet Volume 7.8; Monocytes # (A) 0.5 k/uL (0-1.0); Monocytes % (A) 6 %; Neutrophils # (A) 6.4 k/uL (1.3-7.7); Neutrophils % (A) 81 %; Platelet Count 212 k/uL (150-450); WBC 7.9 k/uL (3.8-10.6)
[2021-12-28 02:26] LABS: Albumin 3.4 g/dL (3.5-5.0); Calcium 8.9 mg/dL (8.4-10.2); Magnesium 1.7 mg/dL (1.6-2.3); Potassium 3.2 mmol/L (3.5-5.1); Total Bilirubin 0.4 mg/dL (0.2-1.3); Total Protein 5.9 g/dL (6.3-8.2)
[2021-12-28 02:33] LABS: INR 0.9 (<1.2); Partial Thromboplastin Time 23.7 sec (22.0-30.0); Prothrombin Time 10.1 sec (9.0-12.0)
[2021-12-28] MEDS ORDERED: ACETAMINOPHEN TAB 325 MG TAB PO STA (02:47)
[2021-12-28] MEDS ORDERED: Potassium Replacement Protocol 1 EACH MISC MISCELLANE PRN (02:50)
[2021-12-28] MEDS ORDERED: MAGNESIUM SULFATE-D5W PMX 1 GM in DEXTROSE/WATER 1 100ML.BAG IVPB ONE (02:50)
[2021-12-28] MEDS: POTASSIUM CHLORIDE ER 20 MEQ TAB.ER PO SCH (03:19)
--- NOTE | 2021-12-28 03:23 | CT ---
EXAMINATION TYPE: CT angio thor/abd pel aorta DATE OF EXAM: 12/28/2021 COMPARISON: None HISTORY: pain CT DLP: 1126 mGycm Automated exposure control for dose reduction was used. CONTRAST: Performed with IV Contrast, patient injected with 80 mL of Isovue 370. Images obtained from the thoracic inlet to the mid pelvis without and subsequently with the IV contra st. There are Three-D postprocessed images. There is some mild subsegmental atelectasis at the lung bases. There is a 1 cm calcified granuloma le ft lower lobe. No pleural effusion. Heart is moderately enlarged. There is small pericardial effusion . There are no hilar masses. No mediastinal adenopathy. Thoracic aorta is intact. No aneurysm or diss ection. No evidence of filling defect in the pulmonary arteries. Liver spleen and stomach pancreas and gallbladder appear intact. The bile ducts are not dilated. There is no adrenal mass. Kidneys show satisfactory contrast opacification. There is no hydronephrosi s. Ureters are not dilated. There is no retroperitoneal adenopathy. There is normal appearance of the abdominal aorta. There is arterial flow in the celiac artery and cordon perior mesenteric artery. There is arterial flow in both renal arteries. There is arterial flow in th e common internal and external iliac arteries bilaterally. No stenosis. No aneurysm or dissection. The lumbar spine is intact. There is some anterior wedging of T8 and T7 T6 vertebra up to 40%. There is mild thoracic kyphosis. The visualized bony pelvis is intact. There is no mesenteric edema. No ascites or free air. No bowel obstruction. Appendix not seen. No sig n of thickened appendix. IMPRESSION: No evidence of pulmonary embolism. No evidence of arterial aneurysm or dissection. Moderate cardiomegaly. Small pericardial effusion. No suspicious pulmonary mass. Mild atelectasis and scarring at the lung bases. Mild atherosclerotic vascular disease. No evidence of hemodynamic stenos is.
[2021-12-28] MEDS ORDERED: NITROGLYCERIN OINT 1 INCH/GM PACKET TOPICAL STA (03:30)
[2021-12-28] MEDS ORDERED: ASPIRIN 81 MG PO STA (03:30)
[2021-12-28] MEDS ORDERED: ONDANSETRON 4 MG/2 ML VIAL IVP PRN (03:31)
[2021-12-28] MEDS ORDERED: NALOXONE 0.4 MG/ML 1 ML VIAL IV PRN (03:31)
[2021-12-28] MEDS ORDERED: ACETAMINOPHEN TAB 325 MG TAB PO PRN (03:31)
[2021-12-28] MEDS ORDERED: amLODIPine 5 MG TAB PO STA (03:49)
[2021-12-28] MEDS ORDERED: LOSARTAN 50 MG TAB PO SCH (09:00)
[2021-12-28] MEDS ORDERED: FLECAINIDE 50 MG TAB PO SCH (09:00)
[2021-12-28] MEDS: MAGNESIUM OXIDE 400 MG TAB PO SCH (09:07)
[2021-12-28] MEDS: TRIAMTERENE-HCTZ 37.5-25MG 1 EACH CAP PO SCH (09:07)
[2021-12-28] MEDS: PANTOPRAZOLE 40 MG TABLET PO SCH (09:07)
[2021-12-28] MEDS: APIXABAN 2.5 MG TABLET PO SCH ×2 (09:07→19:46)
--- NOTE | 2021-12-28 09:40 | P.CRDCN ---
History of Present Illness History of present illness: HISTORY OF PRESENTING ILLNESS This is a pleasant 81-year-old female with a past medical history of paroxysmal atrial fibrillation status post cardioversion 09/2021,and A fib ablation on 10/22/2021, hypertension, GERD, dyslipidemia, osteoporosis. She follows in the office with Dr. Narvaez. We have been asked to see in consultation for chest discomfort. Patient presents to the emergency department with complaints of palpitations, sharp chest pain. She states that yesterday she woke up with midsternal sharp chest pain, radiating to her back and bilateral shoulder blades, she also endorses generalized body ache, cough, generalized weakness and some palpitations. No specific aggravating or alleviating factors. Her chest discomfort is non-exertional. She denies any lightheadedness, dizziness, syncope or near-syncope, abdominal pain, fever, chills, night sweats, nausea or vomiting. Her chest discomfort has improved. DIAGNOSTICS * EKG reveals sinus tachycardia, heart rate 103, frequent PVCs. No arrhythmia or ST S2 abnormalities suggest acute ischemia * Lexiscan tress test 04/2021 in the office revealed no evidence of reversible ischemia, EF 54% * Echocardiogram 02/2021 revealed an EF 5560 percent, small pericardial effusion * Telemetry tracings indicate sinus rhythm * Chest xray mild fibrotic changes, cardiomegaly, no significant change compared to prior * Thoracic aorta CT revealed small pericardial effusion, no evidence of pulmonary embolism, no evidence of arterial aneurysm or dissection, moderate cardiomegaly. * Laboratory reviewed, CBC unremarkable, sodium 134, potassium 3.2, BUN 19, serum creatinine 0.7, troponin negative 2, proBNP 877 * Current home medications include amlodipine 5 mg nightly, atorvastatin 20 mg daily, Eliquis 2.5 mg twice a day, Dyazide daily REVIEW OF SYSTEMS At the time of my exam: CONSTITUTIONAL: Denies fever or chills. Positive generalized weakness and body aches CARDIOVASCULAR: +chest pain, denies shortness of breath, orthopnea, PND or palpitations. RESPIRATORY: Denies cough. GASTROINTESTINAL: Denies abdominal pain, diarrhea, constipation, nausea or vomiting. MUSCULOSKELETAL: Denies myalgias. NEUROLOGIC: Denies numbness, tingling, headache or weakness. ENDOCRINE: Denies fatigue, weight change, polydipsia or polyurina. GENITOURINARY: Denies burning, hematuria or urgency with micturation. HEMATOLOGIC: Denies history of anemia or bleeding. PHYSICAL EXAMINATION Blood pressure 118/63, heart rate 82, afebrile, saturation 95% room air CONSTITUTIONAL: No apparent distress. HEENT: Head is normocephalic. Pupils are equal, round. Sclerae anicteric. Mucous membranes of the mouth are moist. No JVD. No carotid bruit. CHEST EXAMINATION: Lungs are clear to auscultation. No chest wall tenderness is noted on palpation or with deep breathing. HEART EXAMINATION: Regular rate and rhythm. S1, S2 heard. No murmurs, gallops or rub. ABDOMEN: Soft, nontender. Positive bowel sounds. EXTREMITIES: 2+ peripheral pulses, no lower extremity edema and no calf tenderness. SKIN: Warm, dry, pale NEUROLOGIC EXAMINATION: Patient is awake, alert and oriented x3. ASSESSMENT Symptoms of chest discomfort, body aches, generalized weakness, fatigue, palpitations Chest discomfort, atypical Paroxysmal atrial fibrillation status post cardioversion in 09/2021 and Ablation on 10/22/2021. Hypertension GERD Dyslipidemia History of osteoporosis PLAN Trend troponin Obtain 2D echocardiogram and doppler study to assess cardiac structure and funct ion. Continue to monitor patient for additional 24 hours Continue home cardiac medications Further recommendations based on clinical course Nurse practitioner note has been reviewed by physician. Signing provider agrees with the documented findings, assessment, and plan of care. Past Medical History Past Medical History: Atrial Fibrillation, GERD/Reflux, Hyperlipidemia, Hypertension, Osteoarthritis (OA) Additional Past Medical History / Comment(s): OSTEOPOROSIS. see Esther Benz in 2021. History of Any Multi-Drug Resistant Organisms: None Reported Past Surgical History: Joint Replacement, Orthopedic Surgery, Tonsillectomy, Tubal Ligation Additional Past Surgical History / Comment(s): laxmi knee replacements, cardioversion, Open heart Past Anesthesia/Blood Transfusion Reactions: No Reported Reaction Additional Past Anesthesia/Blood Transfusion Reaction / Comment(s): Hx. of N/V. Past Psychological History: No Psychological Hx Reported Smoking Status: Never smoker Past Alcohol Use History: Occasional Additional Past Alcohol Use History / Comment(s): Patient is a lifelong nonsmok er, no alcohol use, no illicit drug use or marijuana use. Patient does not require CPAP, oxygen. She is ambulatory without equipment. Past Drug Use History: None Reported - Past Family History Father Family Medical History: Cancer, CVA/TIA Additional Family Medical History / Comment(s): Father at age 80 from bladder cancer, with history of CVA. Mother Family Medical History: Myocardial Infarction ([place]) Additional Family Medical History / Comment(s): Mother at age 42 from a myocardial infarction. Brother(s) Family Medical History: Blood Disorder, CVA/TIA Additional Family Medical History / Comment(s): Patient was 4 brothers and one has history of factor V, 3 have had strokes. Patient 6 sisters with no major medical problems. Patient has one son 49 years of age with no major medical problems. Patient also has one adopted daughter. Medications and Allergies Home Medications Medication Instructions Recorded Confirmed Type Multivitamins, Thera [Multivitamin 1 tab PO DAILY 03/14/18 12/28/21 History (formulary)] Calcium Carb/Vitamin D3/Vit K1 1 tab PO DAILY 08/27/19 12/28/21 History [Citracal-D3 500 mg Soft Chew] Cholecalciferol (Vitamin D3) 125 mcg PO DAILY 12/30/20 12/28/21 History [Vitamin D3 (125 MCG = 5,000 IU)] Magnesium 250 mg PO DAILY 12/30/20 12/28/21 History Triamterene-Hctz 37.5-25Mg 1 cap PO DAILY 12/30/20 12/28/21 History [Dyazide 37.5-25 Capsule] Apixaban [Eliquis] 2.5 mg PO BID 02/07/21 12/28/21 History Flecainide [Tambocor] 50 mg PO BID 10/22/21 12/28/21 History Atorvastatin [Lipitor] 20 mg PO HS 12/28/21 12/28/21 History Omeprazole [PriLOSEC] 40 mg PO DAILY 12/28/21 12/28/21 History amLODIPine [Norvasc] 5 mg PO HS 12/28/21 12/28/21 History Allergies Allergy/AdvReac Type Severity Reaction Status Date / Time contact metal agent Allergy Unknown Unknown Verified 12/28/21 07:05 adhesive tape Allergy Rash/Hives Verified 12/28/21 07:05 nickel Allergy burning, Verified 12/28/21 07:05 pain Physical Exam Vitals: Vital Signs Temp Pulse Resp BP Pulse Ox 12/28/21 09:07 82 15 118/63 95 12/28/21 07:18 67 25 H 119/88 97 12/28/21 06:04 88 18 130/77 95 12/28/21 03:18 98.8 F 85 20 94 L 12/28/21 01:06 156/87 12/28/21 00:48 98.6 F 98 17 98 Intake and Output 12/27/21 12/28/21 12/28/21 22:59 06:59 14:59 Other: Weight 68.039 kg Results 12/28/21 01:31 12/28/21 01:31 Cardiac Enzymes 12/28/21 12/28/21 12/28/21 Range/Units 01:31 01:31 06:11 AST 20 (14-36) U/L Troponin I <0.012 0.017 (0.000-0.034) ng/mL Coagulation 12/28/21 Range/Units 01:31 PT 10.1 (9.0-12.0) sec APTT 23.7 (22.0-30.0) sec CBC 12/28/21 Range/Units 01:31 WBC 7.9 (3.8-10.6) k/uL RBC 4.10 (3.80-5.40) m/uL Hgb 12.9 (11.4-16.0) gm/dL Hct 38.3 (34.0-46.0) % Plt Count 212 (150-450) k/uL Comprehensive Metabolic Panel 12/28/21 Range/Units 01:31 Sodium 134 L (137-145) mmol/L Potassium 3.2 L (3.5-5.1) mmol/L Chloride 98 (98-107) mmol/L Carbon Dioxide 30 (22-30) mmol/L BUN 19 H (7-17) mg/dL Creatinine 0.79 (0.52-1.04) mg/dL Glucose 146 H (74-99) mg/dL Calcium 8.9 (8.4-10.2) mg/dL AST 20 (14-36) U/L ALT 20 (4-34) U/L Alkaline Phosphatase 83 (38-126) U/L Total Protein 5.9 L (6.3-8.2) g/dL Albumin 3.4 L (3.5-5.0) g/dL Current Medications Generic Name Dose Route Start Last Admin Trade Name Apolinarq PRN Reason Stop Dose Admin Acetaminophen 650 mg 12/28/21 03:31 Acetaminophen Tab 325 Mg Tab PO Q6HR PRN Mild Pain or Fever > 100.5 Amlodipine Besylate 5 mg 12/28/21 21:00 Amlodipine 5 Mg Tab PO HS PHUONG Apixaban 2.5 mg 12/28/21 09:00 12/28/21 09:07 Apixaban 2.5 Mg Tablet PO 2.5 mg BID PHUONG Administration Protocol Atorvastatin Calcium 20 mg 12/28/21 21:00 Atorvastatin 20 Mg Tab PO HS PHUONG Magnesium Oxide 400 mg 12/28/21 09:00 12/28/21 09:07 Magnesium Oxide 400 Mg Tab PO 400 mg DAILY PHUONG Administration Miscellaneous Information 1 each 12/28/21 02:50 Potassium Replacement Protocol 1 Each Misc MISCELLANE DAILY PRN Per Protocol Protocol Naloxone HCl 0.2 mg 12/28/21 03:31 Naloxone 0.4 Mg/Ml 1 Ml Vial IV Q2M PRN Opioid Reversal Ondansetron HCl 4 mg 12/28/21 03:31 Ondansetron 4 Mg/2 Ml Vial IVP Q8HR PRN Nausea And Vomiting Pantoprazole Sodium 40 mg 12/28/21 09:00 12/28/21 09:07 Pantoprazole 40 Mg Tablet PO 40 mg DAILY PHUONG Administration Triamterene/Hydrochlorothiazide 1 each 12/28/21 09:00 12/28/21 09:07 Triamterene-Hctz 37.5-25mg 1 Each Cap PO 1 each DAILY PHUONG Administration Intake and Output 12/27/21 12/28/21 12/28/21 22:59 06:59 14:59 Other: Weight 68.039 kg 12/28/21 01:31 12/28/21 01:31
--- NOTE | 2021-12-28 15:43 | P.HPIM ---
History of Present Illness H&P Date: 12/28/21 Chief Complaint: Chest pain 81-year-old female with a history of atrial fibrillation. Patient presents to the emergency department today stating that she developed racing heart, chest pain which is described as sharp in nature. Patient also states it seems to radiate to the back and her shoulder blade area. Some generalized weakness. Patient also complaining of some general body aches. Patient has a dry cough which she states might be from her blood pressure medication. Symptoms started about 10 PM. Although the patient states she did not feel well all day. Workup completed in ED EKG reveals sinus tachycardia, heart rate 103, frequent PVCs. No arrhythmia or ST S2 abnormalities suggest acute ischemia Chest xray mild fibrotic changes, cardiomegaly, no significant change compared to prior Thoracic aorta CT revealed small pericardial effusion, no evidence of pulmonary embolism, no evidence of arterial aneurysm or dissection, moderate cardiomegaly. aboratory reviewed, CBC unremarkable, sodium 134, potassium 3.2, BUN 19, serum creatinine 0.7, troponin negative 2, proBNP 877 Review of Systems REVIEW OF SYSTEMS: CONSTITUTIONAL: No fever, no malaise, no fatigue. HEENT: No recent visual problems or hearing problems. Denied any sore throat. CARDIOVASCULAR: No chest pain, orthopnea, PND, no palpitations, no syncope. PULMONARY: No shortness of breath, no cough, no hemoptysis. GASTROINTESTINAL: No diarrhea, no nausea, no vomiting, no abdominal pain. NEUROLOGICAL: No headaches, no weakness, no numbness. HEMATOLOGICAL: Denies any bleeding or petechiae. GENITOURINARY: Denies any burning micturition, frequency, or urgency. MUSCULOSKELETAL/RHEUMATOLOGICAL: Denies any joint pain, swelling, or any muscle pain. ENDOCRINE: Denies any polyuria or polydipsia. The rest of the 14-point review of systems is negative. Past Medical History Past Medical History: Atrial Fibrillation, GERD/Reflux, Hyperlipidemia, Hypertension, Osteoarthritis (OA), Rheumatoid Arthritis (RA) Additional Past Medical History / Comment(s): Paroxysmal afib, cardiac tamponade/pericardial window, possible rheumatoid arthritis, osteoporosis, diverticular disease, benign colon polp. History of Any Multi-Drug Resistant Organisms: None Reported Past Surgical History: Breast Surgery, Section, EPS, Joint Replacement, Tonsillectomy, Tubal Ligation Additional Past Surgical History / Comment(s): Cardioversions, EPS with ablations, pericardial window, bilateral total knee replacements, D&Cs, R breast benign lumpectomy, colonoscopy, bilateral cataract removals/lens implants, Past Anesthesia/Blood Transfusion Reactions: Previous Problems w/ Anesthesia, Postoperative Nausea & Vomiting (PONV) Additional Past Anesthesia/Blood Transfusion Reaction / Comment(s): Hx. of N/V. Smoking Status: Never smoker - Past Family History Father Family Medical History: Cancer, CVA/TIA Additional Family Medical History / Comment(s): Father at age 80 from bladder cancer, with history of CVA. Mother Family Medical History: Myocardial Infarction ([place]) Additional Family Medical History / Comment(s): Mother at age 42 from a myocardial infarction. Brother(s) Family Medical History: Blood Disorder, CVA/TIA Additional Family Medical History / Comment(s): Patient was 4 brothers and one has history of factor V, 3 have had strokes. Medications and Allergies Home Medications Medication Instructions Recorded Confirmed Type Multivitamins, Thera [Multivitamin 1 tab PO DAILY 03/14/18 12/28/21 History (formulary)] Calcium Carb/Vitamin D3/Vit K1 1 tab PO DAILY 08/27/19 12/28/21 History [Citracal-D3 500 mg Soft Chew] Cholecalciferol (Vitamin D3) 125 mcg PO DAILY 12/30/20 12/28/21 History [Vitamin D3 (125 MCG = 5,000 IU)] Magnesium 250 mg PO DAILY 12/30/20 12/28/21 History Triamterene-Hctz 37.5-25Mg 1 cap PO DAILY 12/30/20 12/28/21 History [Dyazide 37.5-25 Capsule] Apixaban [Eliquis] 2.5 mg PO BID 02/07/21 12/28/21 History Flecainide [Tambocor] 50 mg PO BID 10/22/21 12/28/21 History Atorvastatin [Lipitor] 20 mg PO HS 12/28/21 12/28/21 History Omeprazole [PriLOSEC] 40 mg PO DAILY 12/28/21 12/28/21 History amLODIPine [Norvasc] 5 mg PO HS 12/28/21 12/28/21 History Allergies Allergy/AdvReac Type Severity Reaction Status Date / Time contact metal agent Allergy Unknown Unknown Verified 12/28/21 07:05 adhesive tape Allergy Rash/Hives Verified 12/28/21 07:05 nickel Allergy burning, Verified 12/28/21 07:05 pain Physical Exam Vitals: Vital Signs Temp Pulse Resp BP Pulse Ox 12/28/21 09:07 82 15 118/63 95 12/28/21 07:18 67 25 H 119/88 97 12/28/21 06:04 88 18 130/77 95 12/28/21 03:18 98.8 F 85 20 94 L 12/28/21 01:06 156/87 12/28/21 00:48 98.6 F 98 17 98 Intake and Output 12/27/21 12/28/21 12/28/21 22:59 06:59 14:59 Other: Weight 68.039 kg 68.039 kg PHYSICAL EXAMINATION: GENERAL: The patient is alert and oriented x3, not in any acute distress. Well developed, well nourished. HEENT: Pupils are round and equally reacting to light. EOMI. No scleral icterus. No conjunctival pallor. Normocephalic, atraumatic. No pharyngeal erythema. No thyromegaly. CARDIOVASCULAR: S1 and S2 present. No murmurs, rubs, or gallops. PULMONARY: Chest is clear to auscultation, no wheezing or crackles. ABDOMEN: Soft, nontender, nondistended, normoactive bowel sounds. No palpable organomegaly. MUSCULOSKELETAL: No joint swelling or deformity. EXTREMITIES: No cyanosis, clubbing, or pedal edema. NEUROLOGICAL: Gross neurological examination did not reveal any focal deficits. SKIN: No rashes. Results CBC & Chem 7: 12/28/21 01:31 12/28/21 01:31 Labs: Abnormal Lab Results - Last 24 Hours (Table) 12/28/21 12/28/21 Range/Units 01:31 01:31 Lymphocytes # 0.8 L (1.0-4.8) k/uL Sodium 134 L (137-145) mmol/L Potassium 3.2 L (3.5-5.1) mmol/L BUN 19 H (7-17) mg/dL Glucose 146 H (74-99) mg/dL Total Protein 5.9 L (6.3-8.2) g/dL Albumin 3.4 L (3.5-5.0) g/dL Thrombosis Risk Factor Assmnt - Choose All That Apply Any of the Below Risk Factors Present?: Yes Other Risk Factors: Yes Each Risk Factor Represents 3 Points: Age 75 years or older Other congenital or acquired thrombophilia - If yes, enter type in comment: No Thrombosis Risk Factor Assessment Total Risk Factor Score: 3 Thrombosis Risk Factor Assessment Level: Moderate Risk Assessment and Plan Assessment: 1. Chest pain; rule out acute coronary syndrome - We will plan to admit patient to telemetry; monitor EKG and trend troponin - 2-D echo with Doppler to assess left ventricular function - Cardiology on board and recommending to continue with all cardiac medications and monitor patient closely for 24 hours 2. Hypertension; Norvasc 5 mg daily at bedtime along with Dyazide 1 tablet daily 3. Hyperlipidemia; Lipitor 20 g by mouth daily at bedtime 4. Paroxysmal atrial fibrillation; patient is status post cardioversion in September 2021 and ablation on 10/22/2021; patient remains on anticoagulation 5. Gastroesophageal reflux disease; Protonix 40 mg daily DVT prophylaxis; SCDs/systemic anticoagulation CODE STATUS; full code
[2021-12-28] MEDS ORDERED: amLODIPine 5 MG TAB PO SCH (21:00)
[2021-12-28] MEDS ORDERED: ATORVASTATIN 20 MG TAB PO SCH (21:00)
[2021-12-28] MEDS ORDERED: NON FORMULARY DRUG (Rosuvastatin 20 MG Tablet) PO SCH (21:00)
[2021-12-29] MEDS: APIXABAN 2.5 MG TABLET PO SCH (08:39)
[2021-12-29] MEDS: MAGNESIUM OXIDE 400 MG TAB PO SCH (08:39)
[2021-12-29] MEDS: PANTOPRAZOLE 40 MG TABLET PO SCH (08:39)
[2021-12-29 08:40] LABS: African American GFR (CKD) >90 (>60 ml/min/1.73 sqM); Anion Gap 6 mmol/L; Blood Urea Nitrogen 14 mg/dL (7-17); Calcium 8.6 mg/dL (8.4-10.2); Carbon Dioxide 30 mmol/L (22-30); Chloride 101 mmol/L (98-107); Glucose 109 mg/dL (74-99); Non-African American GFR(CKD) 82 (>60 ml/min/1.73 sqM); Potassium 3.9 mmol/L (3.5-5.1); Sodium 137 mmol/L (137-145)
[2021-12-29] MEDS ORDERED: NON FORMULARY DRUG (Omeprazole 40 MG Capsule.Dr) PO SCH (09:00)
--- NOTE | 2021-12-29 09:52 | CA ---
Transthoracic Echo Report Name: Miya Colon Age: 81 Gender: F : 1940 Exam Date: 12/28/2021 14:21 Exam Location: [facility] Ht (in): 64 Wt (lb): 150 Ordering Physician: Anne Lugo Attending/Referring Phys: Data Processor Nu Zapata RDCS Procedure CPT: Indications: Chest Pain Cardiac Hx: Technical Quality: Good Contrast 1: Total Dose (mL): Contrast 2: Total Dose (mL): MEASUREMENTS (Male / Female) Normal Values 2D ECHO LV Diastolic Diameter PLAX 5.9 cm 4.2 - 5.9 / 3.9 - 5.3 cm LV Systolic Diameter PLAX 4.3 cm IVS Diastolic Thickness 1.2 cm 0.6 - 1.0 / 0.6 - 0.9 cm LVPW Diastolic Thickness 1.2 cm 0.6 - 1.0 / 0.6 - 0.9 cm LV Relative Wall Thickness 0.4 RV Internal Dim ED PLAX 2.8 cm LA Systolic Diameter LX 4.0 cm 3.0 - 4.0 / 2.7 - 3.8 cm LA Volume 81.3 cm??? 18 - 58 / 22 - 52 cm??? M-MODE Aortic Root Diameter MM 3.5 cm MV E Point Septal Separation 1.1 cm AV Cusp Separation MM 1.7 cm DOPPLER AV Peak Velocity 160.1 cm/s AV Peak Gradient 10.3 mmHg MV Peak Velocity 276.2 cm/s MV Peak Gradient 30.5 mmHg MV Mean Velocity 158.0 cm/s MV Mean Gradient 11.5 mmHg MV Velocity Time Integral 73.8 cm MV Area PHT 1.7 cm??? Mitral E Point Velocity 200.7 cm/s Mitral A Point Velocity 108.8 cm/s Mitral E to A Ratio 1.8 MV Deceleration Time 458.3 ms MV E' Velocity 3.7 cm/s Mitral E to MV E' Ratio 54.2 TR Peak Velocity 261.8 cm/s TR Peak Gradient 27.4 mmHg Right Ventricular Systolic Press 29.4 mmHg FINDINGS Left Ventricle Left ventricular ejection fraction is estimated at 40-45 %. Mild left ventricular dilatation. Borderline left ventricular hypertrophy. Right Ventricle Normal right ventricular size and function. Right ventricular systolic pressure within normal limits. Right Atrium Normal right atrial size. Left Atrium Mildly increased left atrial diameter. Severely increased left atrial volume. Mildly increased left atrial area. No evidence for an atrial septal defect. Mitral Valve Moderate thickening/calcification of the posterior mitral valve leaflet. Moderate mitral annular calcification. Moderate mitral stenosis with mean gradient of 12 mmhg. Moderate mitral regurgitation. Aortic Valve Trileaflet aortic valve. Focal thickening of the aortic valve cusps. Tricuspid Valve Mild tricuspid regurgitation. Pulmonic Valve Trace to mild pulmonic regurgitation. Pericardium Normal pericardium. No pericardial effusion. Aorta Normal size aortic root and proximal ascending aorta. CONCLUSIONS Mild LV systolic dysfunction Severe mitral Calcification with moderate mitral regurgitation and moderate mitral stenosis Mild tricuspid regurgitation Previewed by: Dr. Ezequiel Kent MD (Electronically Signed) Final Date: 29 December 2021 09:51
[2021-12-29] MEDS ORDERED: FLECAINIDE 50 MG TAB PO SCH (10:00)
[2021-12-29] MEDS: TRIAMTERENE-HCTZ 37.5-25MG 1 EACH CAP PO SCH (10:19)
[2021-12-29 11:52] VITALS: RESP 16
--- NOTE | 2021-12-29 12:31 | P.PN ---
Subjective Progress Note Date: 12/29/21 HISTORY OF PRESENT ILLNESS: HISTORY OF PRESENTING ILLNESS This is a pleasant 81-year-old female with a past medical history of paroxysmal atrial fibrillation status post cardioversion 09/2021,and A fib ablation on 10/22/2021, hypertension, GERD, dyslipidemia, osteoporosis. She follows in the office with Dr. Narvaez. We have been asked to see in consultation for chest discomfort. Patient presents to the emergency department with complaints of palpitations, sharp chest pain. She states that yesterday she woke up with midsternal sharp chest pain, radiating to her back and bilateral shoulder blades, she also endorses generalized body ache, cough, generalized weakness and some palpitations. No specific aggravating or alleviating factors. Her chest discomfort is non-exertional. She denies any lightheadedness, dizziness, syncope or near-syncope, abdominal pain, fever, chills, night sweats, nausea or vomiting. Her chest discomfort has improved. DIAGNOSTICS * EKG reveals sinus tachycardia, heart rate 103, frequent PVCs. No arrhythmia or ST S2 abnormalities suggest acute ischemia * Lexiscan tress test 04/2021 in the office revealed no evidence of reversible ischemia, EF 54% * Echocardiogram 02/2021 revealed an EF 5560 percent, small pericardial effusion * Telemetry tracings indicate sinus rhythm * Chest xray mild fibrotic changes, cardiomegaly, no significant change compared to prior * Thoracic aorta CT revealed small pericardial effusion, no evidence of pulmonary embolism, no evidence of arterial aneurysm or dissection, moderate cardiomegaly. * Laboratory reviewed, CBC unremarkable, sodium 134, potassium 3.2, BUN 19, serum creatinine 0.7, troponin negative 2, proBNP 877 * Current home medications include amlodipine 5 mg nightly, atorvastatin 20 mg daily, Eliquis 2.5 mg twice a day, Dyazide daily 12/29/2021 Patient seen and examined this morning at the bedside. Patient denies any further episodes of chest pain. She denies any shortness of breath. Echocardiogram completed revealing ejection fraction 40-45%, moderate MR, moderate mitral stenosis, and mild TR. PHYSICAL EXAM: VITAL SIGNS: Reviewed. GENERAL: Well-developed in no acute distress. NECK: Supple. No JVD or thyromegaly LUNGS: Respirations even and unlabored. Lungs essentially clear to auscultation bilaterally. HEART: Regular rate and rhythm. S1 and S2 heard. EXTREMITIES: Normal range of motion. No clubbing or cyanosis. Peripheral pulses intact. No lower extremity edema ASSESSMENT: Symptoms of chest discomfort, body aches, generalized weakness, fatigue, palpitations Chest discomfort, atypical Paroxysmal atrial fibrillation status post cardioversion in 09/2021 and Ablation on 10/22/2021. Mild cardiomyopathy, etiology unclear Hypertension GERD Dyslipidemia History of osteoporosis PLAN: Continue current cardiac medications DC Norvasc Add metoprolol succinate 25 mg daily Patient reports intolerance to lisinopril secondary to cough, however she continues to have a cough and appears more of a chronic condition rather than CICI related. Patient also reports intolerance to ARB for unknown reasons. Patient may further discuss CICI/ARB outpatient with Dr. Narvaez Patient may be discharged home today and follow up with Dr. Narvaez outpatient Nurse practitioner note has been reviewed by physician. Signing provider agrees with the documented findings, assessment, and plan of care. Objective - Vital Signs Vital signs: Vital Signs Temp 98.1 F 12/29/21 08:00 Pulse 87 12/29/21 08:00 Resp 16 12/29/21 08:00 BP 127/71 12/29/21 08:00 Pulse Ox 97 12/29/21 08:00 FiO2 Intake & Output 12/28/21 12/29/21 12/29/21 18:59 06:59 18:59 Intake Total 200 Balance 200 Weight 68.039 kg Intake: Oral 200 Other: Voiding Method Toilet Toilet # Voids 1 - Labs CBC & Chem 7: 12/28/21 01:31 12/29/21 07:56 Labs: Abnormal Lab Results - Last 24 Hours (Table) 12/29/21 Range/Units 07:56 Glucose 109 H (74-99) mg/dL
[2021-12-29] MEDS ORDERED: METOPROLOL SUCCINATE (ER) 25 MG TAB.ER.24H PO SCH (13:00)
[2021-12-29 13:46] VITALS: BMI 25.7
[2021-12-29 14:32] VITALS: BP 152/70; PULSE 89; TEMP 97.4
[2021-12-30] MEDS ORDERED: lisinopriL 5 MG TAB PO SCH (09:00)
== END 2021-12-29 15:49 | disposition home or self-care (01) ==
LOC: EC 00:30 → 6NMEDSUR 03:50 → 3SCARD 17:56
PROVIDERS: ADMIT Internal Medicine; ATTEND Internal Medicine
DX: R07.89 Other chest pain (principal); E87.6 Hypokalemia; I11.9 Hypertensive heart disease without heart failure; I31.3 Pericardial effusion (noninflammatory); I49.3 Ventricular premature depolarization; I42.9 Cardiomyopathy, unspecified; I08.1 Rheumatic disorders of both mitral and tricuspid valves; I48.0 Paroxysmal atrial fibrillation; I10 Essential (primary) hypertension; R00.0 Tachycardia, unspecified; R53.1 Weakness; R53.83 Other fatigue; E78.5 Hyperlipidemia, unspecified; K21.9 Gastro-esophageal reflux disease without esophagitis; J98.11 Atelectasis; I70.90 Unspecified atherosclerosis; M06.9 Rheumatoid arthritis, unspecified; K57.90 Diverticulosis of intestine, part unspecified, without perforation or abscess without bleeding; M19.90 Unspecified osteoarthritis, unspecified site; M81.0 Age-related osteoporosis without current pathological fracture; Z20.822 Contact with and (suspected) exposure to COVID-19; Z79.01 Long term (current) use of anticoagulants; Z79.899 Other long term (current) drug therapy; Z91.048 Other nonmedicinal substance allergy status; Z86.16 Personal history of COVID-19; Z96.653 Presence of artificial knee joint, bilateral; Z98.51 Tubal ligation status; Z86.010 Personal history of colon polyps; Z98.891 History of uterine scar from previous surgery; Z98.42 Cataract extraction status, left eye; Z98.41 Cataract extraction status, right eye; Z96.1 Presence of intraocular lens; Z98.890 Other specified postprocedural states; Z82.49 Family history of ischemic heart disease and other diseases of the circulatory system; Z82.3 Family history of stroke; Z80.52 Family history of malignant neoplasm of bladder; Z83.2 Family history of diseases of the blood and blood-forming organs and certain disorders involving the immune mechanism
CPT/HCPCS: 96361; 96365; 96366; 99285; 36415; 93005; 93306; 83880; 80053; 80048; 83735 ×2; 84484; 85025; 85610; 85730; 87635; 71045; 71275; 74174; G0378 ×3; J3475; Q9967

== ENCOUNTER 2022-01-19 07:47 | Day surgery (SDC) | payer MEDICARE ==
[2022-01-18 11:39] VITALS: BMI 25.7
[~2022-01-19 07:47] MED LIST changes: +ALPRAZolam 0.25 MG TAB PO PRN; +ALPRAZolam 0.5 MG TAB PO PRN; +ASPIRIN 325 MG TAB PO ONE; +ATORVASTATIN 80 MG TAB PO ONE; +HEPARIN SODIUM,PORCINE 10,000 UNIT in SODIUM CHLORIDE 0.9% 1,000 ML IRRIGATION PRN; +HEPARIN SODIUM,PORCINE 2,500 UNIT in SODIUM CHLORIDE 0.9% 250 ML IRRIGATION PRN; +NITROGLYCERIN SL TABS 0.4 MG TAB SUBLINGUAL PRN; -SODIUM CHLORIDE 0.9% 1,000 ML IV SCH; +SODIUM CHLORIDE 0.9% 1,000 ML in EMPTY BAG 1 BAG IV SCH
[2022-01-19 08:24] VITALS: TEMP 98.3
[2022-01-19] MEDS ORDERED: VERAPAMIL 2.5 MG/ML 2 ML AMP ONE (08:27)
[2022-01-19] MEDS ORDERED: fentaNYL (PF) 50 MCG/ML 2 ML AMP ONE (08:35)
[2022-01-19] MEDS ORDERED: HEPARIN SODIUM 1,000 UN/ML (10ML VL) ONE (08:35)
[2022-01-19] MEDS ORDERED: fentaNYL (PF) 50 MCG/ML 2 ML AMP IV ONE (08:48)
[2022-01-19] MEDS ORDERED: LIDOCAINE 1% INJ 10MG/ML (5 ML VIAL-PF) SQ ONE (08:49)
[2022-01-19] MEDS: VERAPAMIL 2.5 MG/ML 4 ML VIAL INTRAARTER ONE ×2 (08:52→09:06)
[2022-01-19] MEDS: VERAPAMIL SYRINGE (5 MG/10 ML) INTRAARTER ONE ×3 (08:52→09:06)
[2022-01-19] MEDS ORDERED: HEPARIN SODIUM 1,000 UN/ML (10ML VL) IV ONE (09:02)
[2022-01-19] MEDS ORDERED: MIDAZOLAM 2 MG/2 ML VIAL IV ONE (09:08)
[2022-01-19] MEDS ORDERED: IOPAMIDOL-370 125ML BTL INJ ONE (09:09)
[2022-01-19] MEDS ORDERED: RX INFO: IV CONTRAST WAS GIVEN 1 EACH MISC MISCELLANE PRN (09:18)
--- NOTE | 2022-01-19 09:24 | P.CARDCATH ---
Date of Procedure: 01/19/22 Description of Procedure: Cardiac Catheterization: The patient is an 81-year-old female with known history of hypertension, atrial and ventricular ectopic activity who has been followed by Dr. Narvaez and noted recent drop in her systolic function with progressive fatigue. Recommendations were made regarding cardiac catheterization, the risks and the complications were discussed with the patient who is in full understanding and agreement. Procedure Description: Patient was brought to laborer operator in fasting semi-sedated state after receiving Fentanyl and Benadryl achieiving moderate conscious sedated state. Using Xylocaine Anesthesia and Seldinger technique, a 6-Ukrainian sheath was introduced in the right radial artery . Subsequently, selective coronary angiography was performed using a 3.5-Ukrainian 5 bend Elia catheter. Multiple views of the coronary artery including hemiaxial views were obtained. The right Elia catheter was used to cross the aortic valve and LVEDP was calculated. Following that, catheter and sheath were removed. Hemostasis was obtained with deployment of TR band . There was no immediate complication. Patient was returned to room in stable condition. Of note, the patient received a total of 3500 units of intravenous heparin as well as intra-arterial verapamil. Findings: Left main: This is a short sized vessel, bifurcating into LAD and left circumflex, left main has no high-grade stenosis LAD: This is a large size vessel, reaching to the apex, with a wraparound the apex segment, giving rise to a large diagonal branch proximally, the LAD has no high-grade stenosis Left circumflex: This is a nondominant vessel giving rise to 2 obtuse marginal branch, the left circumflex and its branches have no obstructive disease RCA: This is a large dominant vessel, bifurcating into PDA and PLV, the PLV extension to the apical lateral segment. The right coronary artery and its branches have no evidence of high-grade stenosis Left Ventriculogram: Not performed Hemodynamics: There was no gradient across the aortic valve , LVEDP was 16-20 mmHg Conclusion: 1. Normal coronary arteries 2. Right dominant system 3. Mildly elevated LVEDP Recommendations: I have recommended to continue medical therapy patient will be continued on treatment for her cardiomyopathy and arrhythmia. The findings and the recommendations were discussed with the patient and the family and they were in full understanding and agreement. Duration of sedation is 24 minutes.
[2022-01-19] MEDS ORDERED: SODIUM CHLORIDE 0.9% 1,000 ML IV SCH (09:30)
[2022-01-19 10:58] VITALS: RESP 16
--- NOTE | 2022-01-19 12:31 | XR ---
EXAMINATION TYPE: XR chest 2V DATE OF EXAM: 01/19/2022 12:25 PM COMPARISON: Chest radiographs from 12/28/2021, CTA chest abdomen pelvis 12/28/2021 TECHNIQUE: XR chest 2V Frontal and lateral views of the chest. CLINICAL INDICATION:Female, 81 years old with history of Post Heart Cath; FINDINGS: Lungs/Pleura: There is no evidence of pleural effusion, focal consolidation, or pneumothorax. Coarse margarette of interstitial markings. Pulmonary vascularity: Unremarkable. Heart/mediastinum: Cardiomediastinal silhouette is enlarged and stable. Atherosclerotic calcificatio ns are seen in the aorta. Musculoskeletal: Multiple level degenerative disc disease changes seen throughout the spine. IMPRESSION: 1. No acute cardiopulmonary disease/process. 2. Cardiomegaly with mild pulmonary fibrotic changes.
[2022-01-19 12:37] VITALS: PULSE 62
[2022-01-19 12:38] VITALS: BP 147/69
[2022-01-19] MEDS ORDERED: carvediloL 6.25 MG TAB PO SCH (17:30)
[2022-01-20] MEDS ORDERED: PANTOPRAZOLE 40 MG TABLET PO SCH (07:30)
== END 2022-01-19 13:00 | disposition home or self-care (01) ==
LOC: CATHCVL 07:47
PROVIDERS: ATTEND Internal Medicine Interventional Cardiology
DX: I49.5 Sick sinus syndrome (principal); I48.0 Paroxysmal atrial fibrillation; I10 Essential (primary) hypertension; I49.3 Ventricular premature depolarization; E78.5 Hyperlipidemia, unspecified; Z79.899 Other long term (current) drug therapy; Z79.01 Long term (current) use of anticoagulants; Z79.83 Long term (current) use of bisphosphonates; Z20.822 Contact with and (suspected) exposure to COVID-19
CPT/HCPCS: 93458; 87635; 71046; C1769 ×3; C1894; J2250; J2001; J3010; J1644; Q9967

== ENCOUNTER → 2022-01-28 | Outpatient (CLI) | payer MEDICARE ==
--- NOTE | 2022-01-28 12:36 | FL ---
EXAMINATION TYPE: FL sniff test without CXR DATE OF EXAM: 01/28/2022 Comparison: Chest x-ray 01/19/2022 Clinical History: 81-year-old female Shortness of breath R06.02. Patient with 2 cardiac ablations ove r the last year. TECHNIQUE: Real-time fluoroscopy assessment of the diaphragm during quiet breathing, deep respiration s, and sniffing maneuver. Findings: There is slight asymmetric higher positioning of the right hemidiaphragm. There is normal movement du ring quiet breathing. During deep inspiration/expiration, there is sluggish initiation of movement of the right hemidiaphragm. With sniffing maneuver, there is lamellar sluggish initiation but also dimi nished overall excursion on the right. Directionality of movement is maintained. No right paradoxical movement. Impression: Some sluggish initiation of movement of the right hemidiaphragm. Very significant maneuver, there is decreased overall excursion. Findings suggest right-sided weakness/partial paresis. No jordon hemidiap hragmatic paralysis.
== END | disposition home or self-care (01) ==
LOC: RADUSWWP 09:12
PROVIDERS: ATTEND Internal Medicine Clinical Cardiac Electrophysiology
DX: R06.02 Shortness of breath (principal)
CPT/HCPCS: 76000

== ENCOUNTER 2022-02-02 04:18 | Inpatient (IN) | payer MEDICARE ==
--- NOTE | 2022-02-02 04:38 | XR ---
EXAMINATION TYPE: XR chest 2V DATE OF EXAM: 02/02/2022 COMPARISON: 01/19/2022 HISTORY: Tachycardia TECHNIQUE: FINDINGS: Heart is enlarged. No heart failure. Costophrenic angles are clear. There is mild thoracic kyphosis with anterior wedging at T6 vertebra at 50%. There are no hilar masses. There is mild coarse margarette of the lung markings. IMPRESSION: Mild pulmonary fibrosis. Mild cardiomegaly. There is improved inspiration compared to old exam.
[2022-02-02] MEDS ORDERED: DILTIAZEM DRIP BOLUS FROM BAG 1 MG SOLN IV ONE (04:50)
[2022-02-02] MEDS ORDERED: SODIUM CHLORIDE 0.9% 500 ML 500 ML IV ONE (04:59)
[2022-02-02] MEDS ORDERED: DILTIAZEM 125 MG in SODIUM CHLORIDE 0.9% 100 ML IV SCH ×2 (05:00→17:00)
[2022-02-02 05:44] LABS: Basophils # (A) 0.1 k/uL (0-0.2); Basophils % (A) 1 %; Eosinophils # (A) 0.1 k/uL (0-0.7); Eosinophils % (A) 1 %; HCT 42.8 % (34.0-46.0); HGB 13.7 gm/dL (11.4-16.0); Lymphocytes # (A) 1.7 k/uL (1.0-4.8); Lymphocytes % (A) 21 %; MCV 93.6 fL (80.0-100.0); Mean Platelet Volume 7.7; Monocytes # (A) 0.5 k/uL (0-1.0); Monocytes % (A) 6 %; Neutrophils # (A) 5.9 k/uL (1.3-7.7); Neutrophils % (A) 71 %; Platelet Count 245 k/uL (150-450); RBC 4.57 m/uL (3.80-5.40); RDW 14.5 % (11.5-15.5); WBC 8.4 k/uL (3.8-10.6)
--- NOTE | 2022-02-02 05:48 | ED ---
General Adult HPI - General Chief complaint: Arrhythmia/Palpitations Stated complaint: high heart rate Time Seen by Provider: 02/02/22 04:32 Source: patient, family, RN notes reviewed, old records reviewed Mode of arrival: ambulatory - History of Present Illness Initial comments: 81-year-old female history of atrial fibrillation presenting with rapid heart rate and not feeling well. Patient denies chest pain or dyspnea. Denies cough. She not feel well when she went to bed and her apple watch indicated that her heart rate was up to 170. She is on Coreg and Eliquis, she's been compliant with medication. She had recent heart catheterization. - Related Data Home Medications Medication Instructions Recorded Confirmed Multivitamins, Thera [Multivitamin 1 tab PO DAILY 03/14/18 01/18/22 (formulary)] Calcium Carb/Vitamin D3/Vit K1 1 tab PO DAILY 08/27/19 01/18/22 [Citracal-D3 500 mg Soft Chew] Cholecalciferol (Vitamin D3) 125 mcg PO DAILY 12/30/20 01/18/22 [Vitamin D3 (125 MCG = 5,000 IU)] Magnesium 250 mg PO DAILY 12/30/20 01/18/22 Apixaban [Eliquis] 2.5 mg PO BID 02/07/21 01/18/22 Omeprazole 40 mg PO DAILY 01/18/22 01/19/22 carvediloL [Coreg] 6.25 mg PO BID 01/18/22 01/19/22 Aspirin 325 mg PO DAILY PRN 01/19/22 01/19/22 Triamterene/Hydrochlorothiazid 1 each PO DAILY 01/19/22 01/19/22 [Triamterene-Hctz 37.5-25 mg Cp] Allergies Allergy/AdvReac Type Severity Reaction Status Date / Time contact metal agent Allergy Unknown Unknown Verified 02/02/22 04:38 adhesive tape Allergy Rash/Hives Verified 02/02/22 04:38 nickel Allergy burning, Verified 02/02/22 04:38 pain Review of Systems ROS Statement: Those systems with pertinent positive or pertinent negative responses have been documented in the HPI. ROS Other: All systems not noted in ROS Statement are negative. Past Medical History Past Medical History: Atrial Fibrillation, GERD/Reflux, Hyperlipidemia, Hypertension, Osteoarthritis (OA), Rheumatoid Arthritis (RA) Additional Past Medical History / Comment(s): Paroxysmal afib, cardiac tamponade/pericardial window, possible rheumatoid arthritis, osteoporosis, diverticular disease, benign colon polp. History of Any Multi-Drug Resistant Organisms: None Reported Past Surgical History: Breast Surgery, Section, EPS, Joint Replacement, Tonsillectomy, Tubal Ligation Additional Past Surgical History / Comment(s): Cardioversions, EPS with ablations, pericardial window, bilateral total knee replacements, D&Cs, R breast benign lumpectomy, colonoscopy, bilateral cataract removals/lens implants Past Anesthesia/Blood Transfusion Reactions: Postoperative Nausea & Vomiting (PONV) Additional Past Anesthesia/Blood Transfusion Reaction / Comment(s): Hx. of N/V. Past Psychological History: No Psychological Hx Reported Smoking Status: Never smoker Past Alcohol Use History: Rare Past Drug Use History: None Reported - Past Family History Father Family Medical History: Cancer, CVA/TIA Additional Family Medical History / Comment(s): Father at age 80 from bladder cancer, with history of CVA. Mother Family Medical History: Myocardial Infarction (SD) Additional Family Medical History / Comment(s): Mother at age 42 from a myocardial infarction. Brother(s) Family Medical History: Blood Disorder, CVA/TIA Additional Family Medical History / Comment(s): Patient was 4 brothers and one has history of factor V, 3 have had strokes. General Exam General appearance: alert, in no apparent distress Head exam: Present: atraumatic, normocephalic Eye exam: Present: normal appearance, PERRL ENT exam: Present: normal exam Neck exam: Present: normal inspection. Absent: tenderness, meningismus Respiratory exam: Present: normal lung sounds bilaterally. Absent: respiratory distress, wheezes Cardiovascular Exam: Present: tachycardia, irregular rhythm GI/Abdominal exam: Present: soft. Absent: distended, tenderness, guarding, rebound Extremities exam: Present: normal inspection, normal capillary refill. Absent: pedal edema Psychiatric exam: Present: normal affect, normal mood Skin exam: Present: warm, dry, intact. Absent: cyanosis, diaphoretic Course Vital Signs 02/02/22 02/02/22 04:34 05:45 Temperature 97.5 F L Pulse Rate 170 H 147 H Respiratory 24 18 Rate Blood Pressure 105/73 96/79 O2 Sat by Pulse 99 98 Oximetry EKG Findings - EKG Comments: EKG Findings:: Neuro complex tachycardia with frequent PVC, likely atrial fibrillation with RVR, rate of 177, QRS duration 80, QTC 432 Medical Decision Making - Medical Decision Making 81-year-old female presenting with rapid heartbeat, history of atrial fibrillation. Found to be in atrial fibrillation with RVR rate in the 170s. Patient has no associated chest pain or dyspnea. She is anticoagulated at baseline. Laboratory testing is performed as well as chest x-ray. Patient has a normal CBC, normal CMP, minimally elevated troponin 0.046. This is likely from demand ischemia as a heart rate was 180. We will trend this troponin level. She started on Cardizem in the emergency department with significant improvement and rate. She'll be admitted to Dr. Gongora who is aware with cardiology consultation. - Lab Data Result diagrams: 02/02/22 04:45 02/02/22 04:45 Lab Results 02/02/22 02/02/22 02/02/22 Range/Units 04:45 04:45 04:45 WBC 8.4 (3.8-10.6) k/uL RBC 4.57 (3.80-5.40) m/uL Hgb 13.7 (11.4-16.0) gm/dL Hct 42.8 (34.0-46.0) % MCV 93.6 (80.0-100.0) fL MCH 30.0 (25.0-35.0) pg MCHC 32.0 (31.0-37.0) g/dL RDW 14.5 (11.5-15.5) % Plt Count 245 (150-450) k/uL MPV 7.7 Neutrophils % 71 % Lymphocytes % 21 % Monocytes % 6 % Eosinophils % 1 % Basophils % 1 % Neutrophils # 5.9 (1.3-7.7) k/uL Lymphocytes # 1.7 (1.0-4.8) k/uL Monocytes # 0.5 (0-1.0) k/uL Eosinophils # 0.1 (0-0.7) k/uL Basophils # 0.1 (0-0.2) k/uL PT 9.9 (9.0-12.0) sec INR 0.9 (<1.2) APTT 25.1 (22.0-30.0) sec Sodium 138 (137-145) mmol/L Potassium 4.1 (3.5-5.1) mmol/L Chloride 99 (98-107) mmol/L Carbon Dioxide 28 (22-30) mmol/L Anion Gap 11 mmol/L BUN 19 H (7-17) mg/dL Creatinine 0.78 (0.52-1.04) mg/dL Est GFR (CKD-EPI)AfAm 83 (>60 ml/min/1.73 sqM) Est GFR (CKD-EPI)NonAf 72 (>60 ml/min/1.73 sqM) Glucose 156 H (74-99) mg/dL Calcium 9.4 (8.4-10.2) mg/dL Magnesium 1.9 (1.6-2.3) mg/dL Total Bilirubin 0.5 (0.2-1.3) mg/dL AST 66 H (14-36) U/L ALT 43 H (4-34) U/L Alkaline Phosphatase 79 (38-126) U/L Troponin I (0.000-0.034) ng/mL Total Protein 6.2 L (6.3-8.2) g/dL Albumin 4.0 (3.5-5.0) g/dL 02/02/22 Range/Units 04:45 WBC (3.8-10.6) k/uL RBC (3.80-5.40) m/uL Hgb (11.4-16.0) gm/dL Hct (34.0-46.0) % MCV (80.0-100.0) fL MCH (25.0-35.0) pg MCHC (31.0-37.0) g/dL RDW (11.5-15.5) % Plt Count (150-450) k/uL MPV Neutrophils % % Lymphocytes % % Monocytes % % Eosinophils % % Basophils % % Neutrophils # (1.3-7.7) k/uL Lymphocytes # (1.0-4.8) k/uL Monocytes # (0-1.0) k/uL Eosinophils # (0-0.7) k/uL Basophils # (0-0.2) k/uL PT (9.0-12.0) sec INR (<1.2) APTT (22.0-30.0) sec Sodium (137-145) mmol/L Potassium (3.5-5.1) mmol/L Chloride (98-107) mmol/L Carbon Dioxide (22-30) mmol/L Anion Gap mmol/L BUN (7-17) mg/dL Creatinine (0.52-1.04) mg/dL Est GFR (CKD-EPI)AfAm (>60 ml/min/1.73 sqM) Est GFR (CKD-EPI)NonAf (>60 ml/min/1.73 sqM) Glucose (74-99) mg/dL Calcium (8.4-10.2) mg/dL Magnesium (1.6-2.3) mg/dL Total Bilirubin (0.2-1.3) mg/dL AST (14-36) U/L ALT (4-34) U/L Alkaline Phosphatase (38-126) U/L Troponin I 0.046 H* (0.000-0.034) ng/mL Total Protein (6.3-8.2) g/dL Albumin (3.5-5.0) g/dL Critical Care Time Critical Care Time: Yes Total Critical Care Time: 35 Disposition Clinical Impression: Atrial fibrillation with RVR, Elevated troponin I level Disposition: ADMITTED IP TO THIS HOSP Condition: Stable Is patient prescribed a controlled substance at d/c from ED?: No Referrals: Edvin Stuart MD [Primary Care Provider] - 1-2 days Time of Disposition: 06:32
[2022-02-02 06:06] LABS: Calcium 9.4 mg/dL (8.4-10.2); Magnesium 1.9 mg/dL (1.6-2.3); Potassium 4.1 mmol/L (3.5-5.1); Total Bilirubin 0.5 mg/dL (0.2-1.3); Total Protein 6.2 g/dL (6.3-8.2)
[2022-02-02 06:12] LABS: INR 0.9 (<1.2); Partial Thromboplastin Time 25.1 sec (22.0-30.0); Prothrombin Time 9.9 sec (9.0-12.0)
[2022-02-02] MEDS ORDERED: NALOXONE 0.4 MG/ML 1 ML VIAL IV PRN (06:30)
[2022-02-02] MEDS: SODIUM CHLORIDE 0.9% 1,000 ML IV SCH ×2 (06:56→20:43)
--- NOTE | 2022-02-02 10:45 | P.CRDCN ---
History of Present Illness History of present illness: This is a pleasant 81-year-old female with a past medical history of paroxysmal atrial fibrillation status post cardioversion 09/2021,and A fib ablation on 10/22/2021, hypertension, GERD, dyslipidemia, osteoporosis. She follows in the office with Dr. Narvaez. We have been asked to see in consultation for SVT. Patient presents to the emergency department with complaints of palpitations, n ot feeling well. Last night she states she had symptoms of nausea, not feeling well. She was alerted by her Apple watch that her HR 170s. She came to the ER for further evaluation. She denies any lightheadedness, dizziness, syncope or near-syncope, abdominal pain, fever, chills, night sweats, or vomiting. Her EKG on admission revealed SVT vs atrial tachycardia with HR 170s. She was started on IV Cardizem and she is now in sinus rhythm at bedside with HR 80s. DIAGNOSTICS * EKG reveals SVT with short RP vs atrial tachycardia HR 177. * Cardiac catheterization 01/19/2022 revealed normal coronary arteries * Echocardiogram 12/28/2021 revealed EF of 4045 percent, severely increased left atrial volume, moderate mitral regurgitation, moderate mitral stenosis. * Telemetry tracings indicate sinus rhythm HR 80s * Chest xray mild fibrotic changes * Laboratory reviewed, CBC unremarkable, troponin 2.04, 0.05, sodium 138, potassium 4.1, BUN 19, serum creatinine 0.7, magnesium 1.9, TSH 0.8 * Current home medications include amlodipine 2.5 mg nightly, atorvastatin 20 mg daily, Eliquis 2.5 mg twice a day, Dyazide daily REVIEW OF SYSTEMS At the time of my exam: CONSTITUTIONAL: Denies fever or chills. Positive generalized weakness and body aches CARDIOVASCULAR: Denies hest pain, denies shortness of breath, orthopnea, PND or palpitations. RESPIRATORY: Denies cough. GASTROINTESTINAL: Denies abdominal pain, diarrhea, constipation, nausea or vomiting. MUSCULOSKELETAL: Denies myalgias. NEUROLOGIC: Denies numbness, tingling, headache or weakness. ENDOCRINE: Denies fatigue, weight change, polydipsia or polyurina. GENITOURINARY: Denies burning, hematuria or urgency with micturation. HEMATOLOGIC: Denies history of anemia or bleeding. PHYSICAL EXAMINATION Blood pressure 96/79, HR 85, afebrile 98% on room air CONSTITUTIONAL: No apparent distress. HEENT: Head is normocephalic. Pupils are equal, round. Sclerae anicteric. Mucous membranes of the mouth are moist. No JVD. No carotid bruit. CHEST EXAMINATION: Lungs are clear to auscultation. No chest wall tenderness is noted on palpation or with deep breathing. HEART EXAMINATION: Regular rate and rhythm. S1, S2 heard. No murmurs, gallops or rub. ABDOMEN: Soft, nontender. Positive bowel sounds. EXTREMITIES: 2+ peripheral pulses, no lower extremity edema and no calf tenderness. SKIN: Warm, dr NEUROLOGIC EXAMINATION: Patient is awake, alert and oriented x3. ASSESSMENT SVT with short RP vs atrial tachycardia Paroxysmal atrial fibrillation status post cardioversion in 09/2021 and Ablation on 10/22/2021, on Eliquis Hypertension GERD Dyslipidemia History of osteoporosis PLAN Stop IV Cardizem Increase coreg to 12.5mg BID Stop amlodipine Hold home dyazide at this time Continue to monitor patient for additional 24 hours Further recommendations based on clinical course Nurse practitioner note has been reviewed by physician. Signing provider agrees with the documented findings, assessment, and plan of care. Past Medical History Past Medical History: Atrial Fibrillation, GERD/Reflux, Hyperlipidemia, Hypertension, Osteoarthritis (OA), Rheumatoid Arthritis (RA) Additional Past Medical History / Comment(s): Paroxysmal afib, cardiac tamponade/pericardial window, possible rheumatoid arthritis, osteoporosis, diverticular disease, benign colon polp. History of Any Multi-Drug Resistant Organisms: None Reported Past Surgical History: Breast Surgery, Section, EPS, Joint Replacement, Tonsillectomy, Tubal Ligation Additional Past Surgical History / Comment(s): Cardioversions, EPS with ablations, pericardial window, bilateral total knee replacements, D&Cs, R breast benign lumpectomy, colonoscopy, bilateral cataract removals/lens implants Past Anesthesia/Blood Transfusion Reactions: Postoperative Nausea & Vomiting (PONV) Additional Past Anesthesia/Blood Transfusion Reaction / Comment(s): Hx. of N/V. Past Psychological History: No Psychological Hx Reported Smoking Status: Never smoker Past Alcohol Use History: Rare Past Drug Use History: None Reported - Past Family History Father Family Medical History: Cancer, CVA/TIA Additional Family Medical History / Comment(s): Father at age 80 from bladder cancer, with history of CVA. Mother Family Medical History: Myocardial Infarction (MD) Additional Family Medical History / Comment(s): Mother at age 42 from a myocardial infarction. Brother(s) Family Medical History: Blood Disorder, CVA/TIA Additional Family Medical History / Comment(s): Patient was 4 brothers and one h as history of factor V, 3 have had strokes. Medications and Allergies Home Medications Medication Instructions Recorded Confirmed Type Multivitamins, Thera [Multivitamin 1 tab PO DAILY 03/14/18 02/02/22 History (formulary)] Calcium Carb/Vitamin D3/Vit K1 1 tab PO DAILY 08/27/19 02/02/22 History [Citracal-D3 500 mg Soft Chew] Cholecalciferol (Vitamin D3) 125 mcg PO DAILY 12/30/20 02/02/22 History [Vitamin D3 (125 MCG = 5,000 IU)] Magnesium 250 mg PO DAILY 12/30/20 02/02/22 History Apixaban [Eliquis] 2.5 mg PO BID 02/07/21 02/02/22 History Omeprazole 40 mg PO DAILY 01/18/22 02/02/22 History carvediloL [Coreg] 6.25 mg PO BID 01/18/22 02/02/22 History Triamterene/Hydrochlorothiazid 1 cap PO DAILY 01/19/22 02/02/22 History [Triamterene-Hctz 37.5-25 mg Cp] amLODIPine [Norvasc] 2.5 mg PO DAILY 02/02/22 02/02/22 History Allergies Allergy/AdvReac Type Severity Reaction Status Date / Time contact metal agent Allergy Unknown Unknown Verified 02/02/22 08:11 adhesive tape Allergy Rash/Hives Verified 02/02/22 08:11 nickel Allergy burning, Verified 02/02/22 08:11 pain Physical Exam Vitals: Vital Signs Temp Pulse Resp BP Pulse Ox 02/02/22 05:45 147 H 18 96/79 98 02/02/22 04:34 97.5 F L 170 H 24 105/73 99 Intake and Output 02/01/22 02/02/22 02/02/22 22:59 06:59 14:59 Other: Weight 67.132 kg Results 02/02/22 04:45 02/02/22 04:45 Cardiac Enzymes 02/02/22 02/02/22 02/02/22 Range/Units 04:45 04:45 08:50 AST 66 H (14-36) U/L Troponin I 0.046 H* 0.055 H* (0.000-0.034) ng/mL Coagulation 02/02/22 Range/Units 04:45 PT 9.9 (9.0-12.0) sec APTT 25.1 (22.0-30.0) sec CBC 02/02/22 Range/Units 04:45 WBC 8.4 (3.8-10.6) k/uL RBC 4.57 (3.80-5.40) m/uL Hgb 13.7 (11.4-16.0) gm/dL Hct 42.8 (34.0-46.0) % Plt Count 245 (150-450) k/uL Comprehensive Metabolic Panel 02/02/22 Range/Units 04:45 Sodium 138 (137-145) mmol/L Potassium 4.1 (3.5-5.1) mmol/L Chloride 99 (98-107) mmol/L Carbon Dioxide 28 (22-30) mmol/L BUN 19 H (7-17) mg/dL Creatinine 0.78 (0.52-1.04) mg/dL Glucose 156 H (74-99) mg/dL Calcium 9.4 (8.4-10.2) mg/dL AST 66 H (14-36) U/L ALT 43 H (4-34) U/L Alkaline Phosphatase 79 (38-126) U/L Total Protein 6.2 L (6.3-8.2) g/dL Albumin 4.0 (3.5-5.0) g/dL Current Medications Generic Name Dose Route Start Last Admin Trade Name Freq PRN Reason Stop Dose Admin Apixaban 2.5 mg 02/02/22 21:00 Apixaban 2.5 Mg Tablet PO BID [facility] Protocol Carvedilol 12.5 mg 02/02/22 09:27 Carvedilol 12.5 Mg Tab PO BID-W/MEALS PHUONG Sodium Chloride 1,000 mls @ 75 mls/hr 02/02/22 06:30 02/02/22 06:56 Saline 0.9% IV 75 mls/hr .[id number] PHUONG Administration Naloxone HCl 0.2 mg 02/02/22 06:30 Naloxone 0.4 Mg/Ml 1 Ml Vial IV Q2M PRN Opioid Reversal Intake and Output 02/01/22 02/02/22 02/02/22 22:59 06:59 14:59 Other: Weight 67.132 kg 02/02/22 04:45 02/02/22 04:45
[2022-02-02] MEDS: carvediloL 12.5 MG TAB PO SCH ×2 (10:50→23:08)
--- NOTE | 2022-02-02 15:38 | P.HPIM ---
History of Present Illness H&P Date: 02/02/22 Chief complaint; palpitations History of present illness; Patient is a 81-year-old lady with past medical history significant for atrial fibrillation, hyperlipidemia, hypertension who presented to the ER because of palpitations. She was all right yesterday night when she went to bed at which time her apple watch notified of her heart rate being in the 170s. At that time patient was also complaining of palpitations. Patient also complaining of dizziness. Patient was brought to the ER of [facility]. Initial EKG showed SVT versus atrial tachycardia with heart rate 170s. Patient was started on IV Cardizem drip and admitted to hospitalist service. REVIEW OF SYSTEMS: CONSTITUTIONAL: No fever, no malaise, no fatigue. HEENT: No recent visual problems or hearing problems. Denied any sore throat. CARDIOVASCULAR: No chest pain, orthopnea, PND, no palpitations, no syncope. PULMONARY: No shortness of breath, no cough, no hemoptysis. GASTROINTESTINAL: No diarrhea, no nausea, no vomiting, no abdominal pain. NEUROLOGICAL: No headaches, no weakness, no numbness. Complaining of unsteady gait and memory loss HEMATOLOGICAL: Denies any bleeding or petechiae. GENITOURINARY: Denies any burning micturition, frequency, or urgency. MUSCULOSKELETAL/RHEUMATOLOGICAL: Denies any joint pain, swelling, or any muscle pain. ENDOCRINE: Denies any polyuria or polydipsia. The rest of the 14-point review of systems is negative. PHYSICAL EXAMINATION: GENERAL: The patient is alert and oriented x3, not in any acute distress. Well developed, well nourished. HEENT: Pupils are round and equally reacting to light. EOMI. No scleral icterus. No conjunctival pallor. Normocephalic, atraumatic. No pharyngeal erythema. No thyromegaly. CARDIOVASCULAR: S1 and S2 present. No murmurs, rubs, or gallops. PULMONARY: Chest is clear to auscultation, no wheezing or crackles. ABDOMEN: Soft, nontender, nondistended, normoactive bowel sounds. No palpable organomegaly. MUSCULOSKELETAL: No joint swelling or deformity. EXTREMITIES: No cyanosis, clubbing, or pedal edema. NEUROLOGICAL: Gross neurological examination did not reveal any focal deficits. SKIN: No rashes. Assessment SVT with short RP vs atrial tachycardia Paroxysmal atrial fibrillation status post cardioversion in 09/2021 and Ablation on 10/22/2021, on Eliquis Hypertension GERD Dyslipidemia History of osteoporosis Unsteady gait Plan; Continue telemetry monitoring. Monitor electrolytes. Monitor renal functions Continue Coreg Continue eliquis Patient has been complaining of unsteady gait, family at the bedside requesting neurology consultation. DVT prophylaxis:eliquis Past Medical History Past Medical History: Atrial Fibrillation, GERD/Reflux, Hyperlipidemia, Hypertension, Osteoarthritis (OA), Rheumatoid Arthritis (RA) Additional Past Medical History / Comment(s): Paroxysmal afib, cardiac tamponade/pericardial window, possible rheumatoid arthritis, osteoporosis, diverticular disease, benign colon polp. History of Any Multi-Drug Resistant Organisms: None Reported Past Surgical History: Breast Surgery, Section, EPS, Joint Replacement, Tonsillectomy, Tubal Ligation Additional Past Surgical History / Comment(s): Cardioversions, EPS with ablations, pericardial window, bilateral total knee replacements, D&Cs, R breast benign lumpectomy, colonoscopy, bilateral cataract removals/lens implants Past Anesthesia/Blood Transfusion Reactions: Postoperative Nausea & Vomiting (PONV) Additional Past Anesthesia/Blood Transfusion Reaction / Comment(s): Pt has 2U PRBCs with a heart cath. Cath punctured a hole in her heart, and she ended up needing open heart surgery. Past Psychological History: No Psychological Hx Reported Additional Psychological History / Comment(s): Pt resides with her spouse. She is independent. Smoking Status: Never smoker Past Alcohol Use History: Rare Additional Past Alcohol Use History / Comment(s): Patient is a lifelong nonsmo ker, no alcohol use, no illicit drug use or marijuana use. Patient does not require CPAP, oxygen. She is ambulatory without equipment. Past Drug Use History: None Reported - Past Family History Father Family Medical History: Cancer, CVA/TIA Additional Family Medical History / Comment(s): Father at age 80 from bladder cancer, with history of CVA. Mother Family Medical History: Myocardial Infarction ([place]) Additional Family Medical History / Comment(s): Mother at age 42 from a myocardial infarction. Brother(s) Family Medical History: Blood Disorder, CVA/TIA Additional Family Medical History / Comment(s): Patient was 4 brothers and one has history of factor V, 3 have had strokes. Medications and Allergies Home Medications Medication Instructions Recorded Confirmed Type Multivitamins, Thera [Multivitamin 1 tab PO DAILY 03/14/18 02/02/22 History (formulary)] Calcium Carb/Vitamin D3/Vit K1 1 tab PO DAILY 08/27/19 02/02/22 History [Citracal-D3 500 mg Soft Chew] Cholecalciferol (Vitamin D3) 125 mcg PO DAILY 12/30/20 02/02/22 History [Vitamin D3 (125 MCG = 5,000 IU)] Magnesium 250 mg PO DAILY 12/30/20 02/02/22 History Apixaban [Eliquis] 2.5 mg PO BID 02/07/21 02/02/22 History Omeprazole 40 mg PO DAILY 01/18/22 02/02/22 History carvediloL [Coreg] 6.25 mg PO BID 01/18/22 02/02/22 History Triamterene/Hydrochlorothiazid 1 cap PO DAILY 01/19/22 02/02/22 History [Triamterene-Hctz 37.5-25 mg Cp] Allergies Allergy/AdvReac Type Severity Reaction Status Date / Time contact metal agent Allergy Unknown Unknown Verified 02/02/22 08:11 adhesive tape Allergy Rash/Hives Verified 02/02/22 08:11 nickel Allergy burning, Verified 02/02/22 08:11 pain Physical Exam Vitals: Vital Signs Temp Pulse Pulse Resp BP BP Pulse Ox 02/02/22 15:16 98.3 F 85 15 113/68 96 02/02/22 15:02 98.3 F 85 15 113/68 96 02/02/22 12:43 88 18 137/88 98 02/02/22 10:48 85 18 140/91 95 02/02/22 05:45 147 H 18 96/79 98 02/02/22 04:34 97.5 F L 170 H 24 105/73 99 Intake and Output 02/02/22 02/02/22 02/02/22 06:59 14:59 22:59 Other: # Voids 1 Weight 67.132 kg 67.132 kg Results CBC & Chem 7: 02/02/22 04:45 02/02/22 04:45 Labs: Abnormal Lab Results - Last 24 Hours (Table) 02/02/22 02/02/22 02/02/22 Range/Units 04:45 04:45 08:50 BUN 19 H (7-17) mg/dL Glucose 156 H (74-99) mg/dL AST 66 H (14-36) U/L ALT 43 H (4-34) U/L Troponin I 0.046 H* 0.055 H* (0.000-0.034) ng/mL Total Protein 6.2 L (6.3-8.2) g/dL 02/02/22 Range/Units 11:36 BUN (7-17) mg/dL Glucose (74-99) mg/dL AST (14-36) U/L ALT (4-34) U/L Troponin I 0.057 H* (0.000-0.034) ng/mL Total Protein (6.3-8.2) g/dL Thrombosis Risk Factor Assmnt - Choose All That Apply Each Factor Represents 1 point: Medical pt on bed rest Each Risk Factor Represents 3 Points: Age 75 years or older Other congenital or acquired thrombophilia - If yes, enter type in comment: No Thrombosis Risk Factor Assessment Total Risk Factor Score: 4 Thrombosis Risk Factor Assessment Level: Moderate Risk
[2022-02-02] MEDS: APIXABAN 2.5 MG TABLET PO SCH (20:54)
[2022-02-02] MEDS ORDERED: carvediloL 6.25 MG TAB PO SCH (21:00)
[2022-02-02 23:54] LABS: Magnesium 1.7 mg/dL (1.6-2.3); Potassium 3.8 mmol/L (3.5-5.1)
[2022-02-03] MEDS ORDERED: DILTIAZEM DRIP BOLUS FROM BAG 1 MG SOLN IV ONE ×2 (06:10→18:30)
[2022-02-03] MEDS: carvediloL 12.5 MG TAB PO SCH ×2 (06:47→18:02)
[2022-02-03] MEDS ORDERED: AMIODARONE 360 MG in DEXTROSE 5% IN WATER 200 ML IV ONE ×2 (07:38)
[2022-02-03] MEDS ORDERED: DEXTROSE 5% IN WATER 100 ML with AMIODARONE 150 MG IV ONE (07:38)
[2022-02-03] MEDS ORDERED: carvediloL 12.5 MG TAB PO STA (07:38)
[2022-02-03 08:31] LABS: Basophils % (A) 0 %; Eosinophils # (A) 0.1 k/uL (0-0.7); Eosinophils % (A) 1 %; HCT 41.7 % (34.0-46.0); Lymphocytes # (A) 0.9 k/uL (1.0-4.8); Lymphocytes % (A) 11 %; MCHC 31.1 g/dL (31.0-37.0); MCV 93.2 fL (80.0-100.0); Mean Platelet Volume 7.6; Monocytes # (A) 0.4 k/uL (0-1.0); Monocytes % (A) 5 %; Neutrophils # (A) 7.1 k/uL (1.3-7.7); Neutrophils % (A) 83 %; Platelet Count 182 k/uL (150-450); RBC 4.47 m/uL (3.80-5.40); RDW 14.1 % (11.5-15.5); WBC 8.6 k/uL (3.8-10.6)
[2022-02-03 08:37] LABS: African American GFR (CKD) >90 (>60 ml/min/1.73 sqM); Anion Gap 12 mmol/L; Blood Urea Nitrogen 12 mg/dL (7-17); Calcium 8.5 mg/dL (8.4-10.2); Carbon Dioxide 23 mmol/L (22-30); Chloride 102 mmol/L (98-107); Glucose 188 mg/dL (74-99); Non-African American GFR(CKD) 83 (>60 ml/min/1.73 sqM); Potassium 3.5 mmol/L (3.5-5.1); Sodium 137 mmol/L (137-145)
--- NOTE | 2022-02-03 10:21 | P.CNNES ---
History of Present Illness Consult date: 02/03/22 Requesting physician: Chung Munoz Reason for Consult: unsteady gait, vertigo History of Present Illness: This is an 81-year-old woman with history of atrial fibrillation s/p cardioversion with ablation on eliquis who presented to emergency department because of rapid heart rate not feeling well. Neurology is consulted for unsteady gait and vertigo. Patient stated that she's been having A. fib for the last 2 years and seems uncontrolled. She stated she has minimal lightheadedness or dizziness when she stands up. She denies any ringing in the ears, any hearing loss, any visual disturbance or diplopia. 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 She denies any lower back pain. She denies any history of diabetes. She stated that her walking has been off but could not tell me if she sways to one side or the other but denies any falls. She said that the her unsteady walk is been going on for at least 6 months. She stated that she has bilateral knee pain and she had replacement in the past as well as has had pain. Denies any focal weakness, difficulty getting her words out. Initial vital signs is blood pressure 105/73, heart rate of 170, respiratory of 24, temperature of 97.5 Fahrenheit oral, pulse ox of 99 at room air. EKG is reported as a perpendicular tachycardia with frequent premature ventricular complexes. Nonspecific ST and T-wave abnormality. Abnormal EKG. TSH is 0.80 Review of Systems Review of system: The 12 point system was reviewed and apparent positive and negative per HPI. Past Medical History Past Medical History: Atrial Fibrillation, GERD/Reflux, Hyperlipidemia, H ypertension, Osteoarthritis (OA), Rheumatoid Arthritis (RA) Additional Past Medical History / Comment(s): Paroxysmal afib, cardiac tamponade/pericardial window, possible rheumatoid arthritis, osteoporosis, diverticular disease, benign colon polp. History of Any Multi-Drug Resistant Organisms: None Reported Past Surgical History: Breast Surgery, Section, EPS, Joint Replacement, Tonsillectomy, Tubal Ligation Additional Past Surgical History / Comment(s): Cardioversions, EPS with ablations, pericardial window, bilateral total knee replacements, D&Cs, R breast benign lumpectomy, colonoscopy, bilateral cataract removals/lens implants Past Anesthesia/Blood Transfusion Reactions: Postoperative Nausea & Vomiting (PONV) Additional Past Anesthesia/Blood Transfusion Reaction / Comment(s): Pt has 2U PRBCs with a heart cath. Cath punctured a hole in her heart, and she ended up needing open heart surgery. Past Psychological History: No Psychological Hx Reported Additional Psychological History / Comment(s): Pt resides with her spouse. She is independent. Smoking Status: Never smoker Past Alcohol Use History: Rare Additional Past Alcohol Use History / Comment(s): Patient is a lifelong nonsmoker, no alcohol use, no illicit drug use or marijuana use. Patient does not require CPAP, oxygen. She is ambulatory without equipment. Past Drug Use History: None Reported - Past Family History Father Family Medical History: Cancer, CVA/TIA Additional Family Medical History / Comment(s): Father at age 80 from bladder cancer, with history of CVA. Mother Family Medical History: Myocardial Infarction ([place]) Additional Family Medical History / Comment(s): Mother at age 42 from a myocardial infarction. Brother(s) Family Medical History: Blood Disorder, CVA/TIA Additional Family Medical History / Comment(s): Patient was 4 brothers and one has history of factor V, 3 have had strokes. Medications and Allergies Home Medications Medication Instructions Recorded Confirmed Type Multivitamins, Thera [Multivitamin 1 tab PO DAILY 03/14/18 02/02/22 History (formulary)] Calcium Carb/Vitamin D3/Vit K1 1 tab PO DAILY 08/27/19 02/02/22 History [Citracal-D3 500 mg Soft Chew] Cholecalciferol (Vitamin D3) 125 mcg PO DAILY 12/30/20 02/02/22 History [Vitamin D3 (125 MCG = 5,000 IU)] Magnesium 250 mg PO DAILY 12/30/20 02/02/22 History Apixaban [Eliquis] 2.5 mg PO BID 02/07/21 02/02/22 History Omeprazole 40 mg PO DAILY 01/18/22 02/02/22 History carvediloL [Coreg] 6.25 mg PO BID 01/18/22 02/02/22 History Triamterene/Hydrochlorothiazid 1 cap PO DAILY 01/19/22 02/02/22 History [Triamterene-Hctz 37.5-25 mg Cp] Allergies Allergy/AdvReac Type Severity Reaction Status Date / Time contact metal agent Allergy Unknown Unknown Verified 02/02/22 08:11 adhesive tape Allergy Rash/Hives Verified 02/02/22 08:11 nickel Allergy burning, Verified 02/02/22 08:11 pain Physical Examination - Vital Signs Vital Signs: Vital Signs Temp Pulse Pulse Resp BP BP Pulse Ox 02/03/22 08:18 98.3 F 87 16 107/58 96 02/03/22 06:43 103 H 128/80 02/03/22 06:05 133 H 144/77 02/03/22 03:35 98.2 F 110 H 18 139/77 96 02/02/22 23:08 98.2 F 113 H 16 122/66 94 L 02/02/22 20:40 98.1 F 99 18 134/83 95 02/02/22 17:16 140 H 128/95 97 02/02/22 15:16 98.3 F 85 15 113/68 96 02/02/22 15:02 98.3 F 85 15 113/68 96 02/02/22 12:43 88 18 137/88 98 02/02/22 10:48 85 18 140/91 95 Intake and Output 02/02/22 02/03/22 02/03/22 22:59 06:59 14:59 Intake Total 118 63.917 180 Balance 118 63.917 180 Intake: Intake, IV Titration 63.917 Amount Diltiazem 125 mg In 63.917 Sodium Chloride 0.9% 100 ml @ 5 MG/HR 5 mls/hr IV .Q24H [facility] Rx#:[id number] Oral 118 180 Other: Voiding Method Toilet Toilet # Voids 1 2 1 Weight 67.132 kg GENERAL: The patient is lying in bed and is not in acute distress. CHEST: The heart rate is regular rate rhythm. No murmurs to auscultation. LUNG: Clear to auscultation bilaterally no wheezing noted throughout. Not labored breathing. ABDOMEN/GI: Bowel sounds present in all 4 quadrants. No tenderness to palpation throughout. NEUROLOGICAL: Higher mental function: The patient is awake, alert, oriented to self, place and time. Patient is following commands. No aphasia and no neglect. Cranial nerves: The pupils are round, equal and reactive to light and accommodation. Visual mcihel are full to confrontation throughout. Extraocular movement is intact no nystagmus is noted. Facial sensation is normal to touch throughout. The facial strength is normal throughout. Hearing is slightly decreased bilaterally to hand rub. Tongue is midline and moved [id number] without any difficulty. No dysarthria is noted. Shoulder shrug is normal bilaterally. Motor: Gait is slow gait but not swaying toward one side or other and walking independent. The strength is 5 over 5 throughout. Normal tone and bulk. Cerebellum: Normal finger to nose heel to chin bilaterally. Sensation: Sensation is normal to touch throughout. Reflexes (right/left): 1+ throughout. Plantars are mute bilaterally. Results - Laboratory Findings CBC and BMP: 02/03/22 08:05 02/03/22 08:05 Abnormal Lab Findings: Abnormal Labs 02/02/22 02/02/22 02/02/22 04:45 04:45 08:50 Lymphocytes # BUN 19 H Glucose 156 H AST 66 H ALT 43 H Troponin I 0.046 H* 0.055 H* Total Protein 6.2 L 02/02/22 02/03/22 02/03/22 11:36 08:05 08:05 Lymphocytes # 0.9 L BUN Glucose 188 H AST ALT Troponin I 0.057 H* Total Protein Assessment and Plan Assessment: Her slow gait/unsteady seems chronic is likely due to multifactorial: Peripheral neuropathy (per patient for at least 9 years) predominately and in addition due to arthritis (knees). Supraventricular tachycardia vs atrial tachycardia Proximal atrial fibrillation status post cardioversion 2021 and ablation 2021 on Eliquis Hypertension Osteoporosis Dyslipidemia Plan: I ordered vitamin B12, folate, HbA1c, orthostatic vitals. Recommended imaging such as CT or MRI Brain but the patient refused. From the patient's history and examination patient does not seem to have a stroke. If the patient continues to have lightheadedness/dizziness even though the atrial fibrillations/SVT vs atrial tachycrdia then recommend patient to be evaluated by ENT as outpatient with consideration of vestibular rehab therapy. Recommend EMG with nerve conduction study of the bilateral lower extremities as outpatient. Consulting physical therapy and occupation therapy for gait training. Cardiology on board. Will defer the rest of medical management to primary team. Recommend patient to follow-up with neurologist as outpatient within 1-2 weeks. Otherwise no additional workup is needed from a neurologic perspective besides above. Thank you for the consultation. Luis Carlos Mott M.D. Neuro-Hospitalist Time with Patient: Greater than 30
[2022-02-03] MEDS: APIXABAN 2.5 MG TABLET PO SCH ×2 (11:18→20:00)
--- NOTE | 2022-02-03 11:24 | P.PN ---
Subjective Progress Note Date: 02/03/22 Patient is a 81-year-old lady with past medical history significant for atrial fibrillation, hyperlipidemia, hypertension who presented to the ER because of palpitations. She was all right yesterday night when she went to bed at which time her apple watch notified of her heart rate being in the 170s. At that time patient was also complaining of palpitations. Patient also complaining of dizziness. Patient was brought to the ER of [facility]. Initial EKG showed SVT versus atrial tachycardia with heart rate 170s. Patient was started on IV Cardizem drip and admitted to hospitalist service. 02/03. Patient seen and examined. Patient had another episode of SVT overnight, was complaining of palpitations. Denies any chest pain or shortness of breath. Denies any nausea, vomiting or abdominal pain. Denies any N or dizziness. Vital signs stable. Case discussed with nursing staff. PHYSICAL EXAMINATION: GENERAL: The patient is alert and oriented x3, not in any acute distress. Well developed, well nourished. HEENT: Pupils are round and equally reacting to light. EOMI. No scleral icterus. No conjunctival pallor. Normocephalic, atraumatic. No pharyngeal erythema. No thyromegaly. CARDIOVASCULAR: S1 and S2 present. No murmurs, rubs, or gallops. PULMONARY: Chest is clear to auscultation, no wheezing or crackles. ABDOMEN: Soft, nontender, nondistended, normoactive bowel sounds. No palpable organomegaly. MUSCULOSKELETAL: No joint swelling or deformity. EXTREMITIES: No cyanosis, clubbing, or pedal edema. NEUROLOGICAL: Gross neurological examination did not reveal any focal deficits. SKIN: No rashes. Assessment SVT with short RP vs atrial tachycardia Paroxysmal atrial fibrillation status post cardioversion in 09/2021 and Ablation on 10/22/2021, on Eliquis Hypertension GERD Dyslipidemia History of osteoporosis Unsteady gait Plan; Continue telemetry monitoring. Monitor electrolytes. Monitor renal functions Continue amiodarone drip Neurology evaluated The patient and ordered vitamin B12, folate, HbA1c, orthostatic vitals. They recommended imaging such as CT or MRI Brain but the patient refused. From the patient's history and examination patient does not seem to have a stroke. Neurology stated that If the patient continues to have lightheadedness/dizziness even though the atrial fibrillations/SVT vs atrial tachycrdia then recommend patient to be evaluated by ENT as outpatient with consideration of vestibular rehab therapy. PT and OT consulted Cardiology on board. DVT prophylaxis: eliquis Objective - Vital Signs Vital signs: Vital Signs Temp 98.3 F 02/03/22 08:18 Pulse 87 02/03/22 08:18 Resp 16 02/03/22 08:18 BP 107/58 02/03/22 08:18 Pulse Ox 96 02/03/22 08:18 FiO2 Intake & Output 02/02/22 02/03/22 02/03/22 18:59 06:59 18:59 Intake Total 118 63.917 180 Balance 118 63.917 180 Weight 67.132 kg Intake: Intake, IV Titration 63.917 Amount Diltiazem 125 mg In 63.917 Sodium Chloride 0.9% 100 ml @ 5 MG/HR 5 mls/hr IV .Q24H [facility] Rx#:[id number] Oral 118 180 Other: Voiding Method Toilet Toilet # Voids 1 2 1 - Labs CBC & Chem 7: 02/03/22 08:05 02/03/22 08:05 Labs: Abnormal Lab Results - Last 24 Hours (Table) 02/02/22 02/03/22 02/03/22 Range/Units 11:36 08:05 08:05 Lymphocytes # 0.9 L (1.0-4.8) k/uL Glucose 188 H (74-99) mg/dL Troponin I 0.057 H* (0.000-0.034) ng/mL
[2022-02-03] MEDS: SODIUM CHLORIDE 0.9% 1,000 ML IV SCH (11:28)
--- NOTE | 2022-02-03 11:38 | P.PN ---
Subjective This is a pleasant 81-year-old female with a past medical history of paroxysmal atrial fibrillation status post cardioversion 09/2021,and A fib ablation on 10/22/2021, hypertension, GERD, dyslipidemia, osteoporosis. She follows in the office with Dr. Narvaez. We have been asked to see in consultation for SVT. Patient presents to the emergency department with complaints of palpitations, not feeling well. Last night she states she had symptoms of nausea, not feeling well. She was alerted by her Apple watch that her HR 170s. She came to the ER f or further evaluation. She denies any lightheadedness, dizziness, syncope or near-syncope, abdominal pain, fever, chills, night sweats, or vomiting. Her EKG on admission revealed SVT vs atrial tachycardia with HR 170s. She was started on IV Cardizem and she is now in sinus rhythm at bedside with HR 80s. DIAGNOSTICS * EKG on admission revealed SVT with short RP vs atrial tachycardia HR 177. * Cardiac catheterization 01/19/2022 revealed normal coronary arteries * Echocardiogram 12/28/2021 revealed EF of 4045% severely increased left atrial volume, moderate mitral regurgitation, moderate mitral stenosis. 02/03 Patient seen and examined at bedside, she continues to be slightly tachycardic this morning. Her heart rates have slightly improved 90s. Telemetry tracings indicate sinus rhythm HR 80s, episode of SVT earlier this morning Blood pressure 107/50. She is on IV Cardizem, Coreg 12.5mg BID. PHYSICAL EXAMINATION Blood pressure CONSTITUTIONAL: No apparent distress. HEENT: Neck Supple. No JVD. CHEST EXAMINATION: Lungs are clear to auscultation. No chest wall tenderness is noted on palpation or with deep breathing. HEART EXAMINATION: Tachycardic rate, regular rhythm. S1, S2 heard. No murmurs, gallops or rub. ABDOMEN: Soft, nontender. Positive bowel sounds. EXTREMITIES: 2+ peripheral pulses, no lower extremity edema and no calf tenderness. SKIN: Warm, dry NEUROLOGIC EXAMINATION: Patient is awake, alert and oriented x3. ASSESSMENT SVT with short RP vs atrial tachycardia Paroxysmal atrial fibrillation status post cardioversion in 09/2021 and Ablation on 10/22/2021, on Eliquis Hypertension GERD Dyslipidemia History of osteoporosis PLAN IV amiodarone drip Increase coreg to 25mg BID Discontinue amlodipine Continue to hold home dyazide at this time Continue to monitor patient for additional 24 hours Further recommendations based on clinical course Nurse practitioner note has been reviewed by physician. Signing provider agrees with the documented findings, assessment, and plan of care. Objective - Vital Signs Vital signs: Vital Signs Temp 98.3 F 02/03/22 08:18 Pulse 87 02/03/22 08:18 Resp 16 02/03/22 08:18 BP 107/58 02/03/22 08:18 Pulse Ox 96 02/03/22 08:18 FiO2 Intake & Output 02/02/22 02/03/22 02/03/22 18:59 06:59 18:59 Intake Total 118 63.917 180 Balance 118 63.917 180 Weight 67.132 kg Intake: Intake, IV Titration 63.917 Amount Diltiazem 125 mg In 63.917 Sodium Chloride 0.9% 100 ml @ 5 MG/HR 5 mls/hr IV .Q24H [facility] Rx#:[id number] Oral 118 180 Other: Voiding Method Toilet Toilet # Voids 1 2 1 - Labs CBC & Chem 7: 02/03/22 08:05 02/03/22 08:05 Labs: Abnormal Lab Results - Last 24 Hours (Table) 02/02/22 02/03/22 02/03/22 Range/Units 11:36 08:05 08:05 Lymphocytes # 0.9 L (1.0-4.8) k/uL Glucose 188 H (74-99) mg/dL Troponin I 0.057 H* (0.000-0.034) ng/mL
[2022-02-03] MEDS ORDERED: AMIODARONE 450 MG in DEXTROSE 5% IN WATER 250 ML IV SCH ×2 (13:38)
[2022-02-03] MEDS: DILTIAZEM 125 MG in SODIUM CHLORIDE 0.9% 100 ML IV SCH (18:46)
[2022-02-03 22:10] LABS: Magnesium 1.8 mg/dL (1.6-2.3); Potassium 3.8 mmol/L (3.5-5.1)
[2022-02-04] MEDS: SODIUM CHLORIDE 0.9% 1,000 ML IV SCH (04:54)
[2022-02-04] MEDS: carvediloL 12.5 MG TAB PO SCH (06:51)
[2022-02-04] MEDS: DILTIAZEM 125 MG in SODIUM CHLORIDE 0.9% 100 ML IV SCH ×2 (06:51→16:30)
[2022-02-04] MEDS: CYANOCOBALAMIN 500 MCG TAB PO SCH (10:43)
[2022-02-04] MEDS ORDERED: guaiFENesin-DM 100-10MG/5ML 10 ML CUP PO PRN (10:43)
[2022-02-04] MEDS: APIXABAN 2.5 MG TABLET PO SCH ×2 (10:44→20:00)
--- NOTE | 2022-02-04 10:57 | P.PN ---
Subjective Progress Note Date: 02/04/22 The patient is seen at bedside and feels doing about the same. Denies any new neurological issues. Objective - Vital Signs Vital signs: Vital Signs Temp 98.2 F 02/04/22 09:15 Pulse 85 02/04/22 09:15 Resp 18 02/04/22 09:15 BP 122/77 02/04/22 09:15 Pulse Ox 98 02/04/22 03:55 FiO2 Intake & Output 02/03/22 02/04/22 02/04/22 18:59 06:59 18:59 Intake Total 360 120.833 27.334 Output Total 1 Balance 360 119.833 27.334 Weight 67.132 kg Intake: Intake, IV Titration 120.833 27.334 Amount Diltiazem 125 mg In 120.833 27.334 Sodium Chloride 0.9% 100 ml @ 10 MG/HR 10 mls/hr IV .[id number] [facility] Rx#: [id number] Oral 360 Output: Urine 1 Other: Voiding Method Toilet # Voids 1 1 - Exam GENERAL: The patient is lying in bed and is not in acute distress. NEUROLOGICAL: Higher mental function: The patient is awake, alert, oriented to self, place and time. Patient is following commands. No aphasia and no neglect. Cranial nerves: The pupils are round, equal and reactive to light and accommodation. Visual michel are full to confrontation throughout. Extraocular movement is intact no nystagmus is noted. Facial sensation is normal to touch throughout. The facial strength is normal throughout. Hearing is slightly decreased bilaterally to hand rub. Tongue is midline and moved [id number] without any difficulty. No dysarthria is noted. Shoulder shrug is normal bi laterally. Motor: Gait is deferred. The strength is 5 over 5 throughout. Normal tone and bulk. Cerebellum: Normal finger to nose heel to chin bilaterally. Sensation: Sensation is normal to touch throughout. Reflexes (right/left): 1+ throughout. Plantars are mute bilaterally. SOME OF THE WORK-UP DURING THIS HOSPITAL VISIT CONSISTED OF: EKG is reported as a perpendicular tachycardia with frequent premature ventricular complexes. Nonspecific ST and T-wave abnormality. Abnormal EKG. TSH is 0.80 Vitamin B12: 338 Serum Folate 18.60 HbA1: 6.5 - Labs CBC & Chem 7: 02/03/22 08:05 02/03/22 21:28 Labs: Abnormal Lab Results - Last 24 Hours (Table) 02/03/22 Range/Units 08:05 Hemoglobin A1c 6.5 H (0.0-6.0) % Assessment and Plan Assessment: Her slow gait/unsteady seems chronic is likely due to multifactorial: Peripheral neuropathy (per patient for at least 9 years) predominately and in addition due to arthritis (knees). Supraventricular tachycardia vs atrial tachycardia Proximal atrial fibrillation status post cardioversion 2021 and ablation 2021 on Eliquis Newly diagnosed DM (HbA1c 6.5) Hypertension Osteoporosis Dyslipidemia Plan: Since has low normal vitamin B12: Started on Vitamin B12 1000mcg daily. Recommended repeat Orthostatics since first there is drop of 20mm Hg from sitting to standing during systolic phase. Recommended imaging such as CT or MRI Brain but the patient refused. From the patient's history and examination patient does not seem to have a stroke. She continues to refuse. If the patient continues to have lightheadedness/dizziness even though the atrial fibrillations/SVT vs atrial tachycrdia then recommend patient to be evaluated by ENT as outpatient with consideration of vestibular rehab therapy. Recommend EMG with nerve conduction study of the bilateral lower extremities as outpatient. Physical therapy and occupation therapy are consulted for gait training. Cardiology on board. Will defer the rest of medical management to primary team. Recommend patient to follow-up with neurologist as outpatient within 1-2 weeks. Otherwise no additional workup is needed from a neurological perspective besides above. The plan is discussed with the patient and primary team. Luis Carlos Mott M.D. Neuro-Hospitalist Time with Patient: Less than 30
--- NOTE | 2022-02-04 12:14 | P.PN ---
Subjective This is a pleasant 81-year-old female with a past medical history of paroxysmal atrial fibrillation status post cardioversion 09/2021,and A fib ablation on 10/22/2021, hypertension, GERD, dyslipidemia, osteoporosis. She follows in the office with Dr. Narvaez. We have been asked to see in consultation for SVT. Patient presents to the emergency department with complaints of palpitations, not feeling well. Last night she states she had symptoms of nausea, not feeling well. She was alerted by her Apple watch that her HR 170s. She came to the ER f or further evaluation. She denies any lightheadedness, dizziness, syncope or near-syncope, abdominal pain, fever, chills, night sweats, or vomiting. Her EKG on admission revealed SVT vs atrial tachycardia with HR 170s. She was started on IV Cardizem and she is now in sinus rhythm at bedside with HR 80s. DIAGNOSTICS * EKG on admission revealed SVT with short RP vs atrial tachycardia HR 177. * Cardiac catheterization 01/19/2022 revealed normal coronary arteries * Echocardiogram 12/28/2021 revealed EF of 4045% severely increased left atrial volume, moderate mitral regurgitation, moderate mitral stenosis. 02/04 Patient seen and examined at bedside, Her heart rates have slightly improved. She was started on IV Amiodarone yesterday and could not tolerate it, she had increased vomiting. Drip was stopped. IV Cardizem was started. Patient converted to sinus rhythm. She is currently back in A fib, HR 80s-120s. Blood pressure 108/61 HR 96. On IV Cardizem and coreg 12.5mg BID PHYSICAL EXAMINATION Blood pressure CONSTITUTIONAL: No apparent distress. HEENT: Neck Supple. No JVD. CHEST EXAMINATION: Lungs are clear to auscultation. No chest wall tenderness is noted on palpation or with deep breathing. HEART EXAMINATION: Tachycardic rate, regular rhythm. S1, S2 heard. No murmurs, gallops or rub. ABDOMEN: Soft, nontender. Positive bowel sounds. EXTREMITIES: 2+ peripheral pulses, no lower extremity edema and no calf tenderness. SKIN: Warm, dry NEUROLOGIC EXAMINATION: Patient is awake, alert and oriented x3. ASSESSMENT SVT with short RP vs atrial tachycardia Paroxysmal atrial fibrillation with RVR status post cardioversion in 09/2021 and Ablation on 10/22/2021, on Eliquis Hypertension GERD Dyslipidemia History of osteoporosis PLAN Stop IV Cardizem Stop Coreg Transition to metoprolol succinate 50mg BID Continue to hold home dyazide and amlodipine at this time Continue to monitor patient for additional 24 hours Further recommendations based on clinical course Nurse practitioner note has been reviewed by physician. Signing provider agrees with the documented findings, assessment, and plan of care. Objective - Vital Signs Vital signs: Vital Signs Temp 98.2 F 02/04/22 09:15 Pulse 85 02/04/22 09:15 Resp 18 02/04/22 09:15 BP 122/77 02/04/22 09:15 Pulse Ox 98 02/04/22 03:55 FiO2 Intake & Output 02/03/22 02/04/22 02/04/22 18:59 06:59 18:59 Intake Total 360 120.833 27.334 Output Total 1 Balance 360 119.833 27.334 Weight 67.132 kg Intake: Intake, IV Titration 120.833 27.334 Amount Diltiazem 125 mg In 120.833 27.334 Sodium Chloride 0.9% 100 ml @ 10 MG/HR 10 mls/hr IV .[id number] [facility] Rx#: [id number] Oral 360 Output: Urine 1 Other: Voiding Method Toilet Toilet # Voids 1 1 - Labs CBC & Chem 7: 02/03/22 08:05 02/03/22 21:28 Labs: Abnormal Lab Results - Last 24 Hours (Table) 02/03/22 Range/Units 08:05 Hemoglobin A1c 6.5 H (0.0-6.0) %
--- NOTE | 2022-02-04 12:20 | P.PN ---
Subjective Progress Note Date: 02/04/22 Patient is a 81-year-old lady with past medical history significant for atrial fibrillation, hyperlipidemia, hypertension who presented to the ER because of palpitations. She was all right yesterday night when she went to bed at which time her apple watch notified of her heart rate being in the 170s. At that time patient was also complaining of palpitations. Patient also complaining of dizziness. Patient was brought to the ER of [facility]. Initial EKG showed SVT versus atrial tachycardia with heart rate 170s. Patient was started on IV Cardizem drip and admitted to hospitalist service. 02/03. Patient seen and examined. Patient had another episode of SVT overnight, was complaining of palpitations. Denies any chest pain or shortness of breath. Denies any nausea, vomiting or abdominal pain. Denies any N or dizziness. Vital signs stable. Case discussed with nursing staff. 02/04. Patient lying comfortably in the bed. Patient heart rate is still elevated, was on IV amiodarone yesterday for a short time but could not tolerate it. Continues to be in A. fib. Denies any chest pain or shortness of breath. No lightheadedness or dizziness. Vital signs stable PHYSICAL EXAMINATION: GENERAL: The patient is alert and oriented x3, not in any acute distress. Well developed, well nourished. HEENT: Pupils are round and equally reacting to light. EOMI. No scleral icterus. No conjunctival pallor. Normocephalic, atraumatic. No pharyngeal erythema. No thyromegaly. CARDIOVASCULAR: S1 and S2 present. No murmurs, rubs, or gallops. Tachycardia PULMONARY: Chest is clear to auscultation, no wheezing or crackles. ABDOMEN: Soft, nontender, nondistended, normoactive bowel sounds. No palpable organomegaly. MUSCULOSKELETAL: No joint swelling or deformity. EXTREMITIES: No cyanosis, clubbing, or pedal edema. NEUROLOGICAL: Gross neurological examination did not reveal any focal deficits. SKIN: No rashes. Assessment SVT with short RP vs atrial tachycardia Paroxysmal atrial fibrillation status post cardioversion in 09/2021 and Ablation on 10/22/2021, on Eliquis Hypertension GERD Dyslipidemia History of osteoporosis Unsteady gait Plan; Continue telemetry monitoring. Monitor electrolytes. Monitor renal functions Continue Toprol 50 mg twice a day Continue eliquis Neurology evaluated The patient and ordered vitamin B12, folate, HbA1c, orthostatic vitals. They recommended imaging such as CT or MRI Brain but the patient refused. From the patient's history and examination patient does not seem to have a stroke. Neurology stated that If the patient continues to have lightheadedness/dizziness even though the atrial fibrillations/SVT vs atrial tachycrdia then recommend patient to be evaluated by ENT as outpatient with consideration of vestibular rehab therapy. Follow-up on PT and OT recommendations Follow up in cardiology recommendations DVT prophylaxis: eliquis Objective - Vital Signs Vital signs: Vital Signs Temp 98.5 F 02/04/22 12:12 Pulse 96 02/04/22 12:12 Resp 20 02/04/22 12:12 BP 108/61 02/04/22 12:12 Pulse Ox 96 02/04/22 12:12 FiO2 Intake & Output 02/03/22 02/04/22 02/04/22 18:59 06:59 18:59 Intake Total 360 120.833 27.334 Output Total 1 Balance 360 119.833 27.334 Weight 67.132 kg Intake: Intake, IV Titration 120.833 27.334 Amount Diltiazem 125 mg In 120.833 27.334 Sodium Chloride 0.9% 100 ml @ 10 MG/HR 10 mls/hr IV .[id number] [facility] Rx#: [id number] Oral 360 Output: Urine 1 Other: Voiding Method Toilet Toilet # Voids 1 1 - Labs CBC & Chem 7: 02/03/22 08:05 02/03/22 21:28 Labs: Abnormal Lab Results - Last 24 Hours (Table) 02/03/22 Range/Units 08:05 Hemoglobin A1c 6.5 H (0.0-6.0) %
[2022-02-04] MEDS: BENZOCAINE/MENTHOL LOZENG 1 EACH LOZENGE MUCOUS MEM PRN ×2 (13:05→21:40)
[2022-02-04] MEDS: METOPROLOL SUCCINATE (ER) 50 MG TAB.ER.24H PO SCH (15:36)
[2022-02-04] MEDS: guaiFENesin SYRUP 100MG/5ML 200 MG/10 ML CUP PO PRN (18:03)
[2022-02-05] MEDS: guaiFENesin SYRUP 100MG/5ML 200 MG/10 ML CUP PO PRN ×2 (00:05→20:24)
[2022-02-05] MEDS: DILTIAZEM 125 MG in SODIUM CHLORIDE 0.9% 100 ML IV SCH ×2 (02:36→11:45)
[2022-02-05] MEDS: METOPROLOL SUCCINATE (ER) 50 MG TAB.ER.24H PO SCH (08:40)
[2022-02-05] MEDS: CYANOCOBALAMIN 500 MCG TAB PO SCH (08:40)
[2022-02-05] MEDS: APIXABAN 2.5 MG TABLET PO SCH ×2 (08:40→20:24)
[2022-02-05] MEDS ORDERED: METOPROLOL SUCCINATE (ER) 25 MG TAB.ER.24H PO STA (09:58)
[2022-02-05] MEDS: DILTIAZEM ORAL 30 MG TAB PO SCH ×3 (11:51→20:24)
--- NOTE | 2022-02-05 13:31 | P.PN ---
Subjective This is a pleasant 81-year-old female with a past medical history of paroxysmal atrial fibrillation status post cardioversion 09/2021,and A fib ablation on 10/22/2021, hypertension, GERD, dyslipidemia, osteoporosis. She follows in the office with Dr. Narvaez. We have been asked to see in consultation for SVT. Patient presents to the emergency department with complaints of palpitations, not feeling well. Last night she states she had symptoms of nausea, not feeling well. She was alerted by her Apple watch that her HR 170s. She came to the ER f or further evaluation. She denies any lightheadedness, dizziness, syncope or near-syncope, abdominal pain, fever, chills, night sweats, or vomiting. Her EKG on admission revealed SVT vs atrial tachycardia with HR 170s. She was started on IV Cardizem and she is now in sinus rhythm at bedside with HR 80s. DIAGNOSTICS * EKG on admission revealed SVT with short RP vs atrial tachycardia HR 177. * Cardiac catheterization 01/19/2022 revealed normal coronary arteries * Echocardiogram 12/28/2021 revealed EF of 4045% severely increased left atrial volume, moderate mitral regurgitation, moderate mitral stenosis. 02/04 She was started on IV Amiodarone yesterday and could not tolerate it, she had increased vomiting. Drip was stopped. IV Cardizem was started. Patient converted to sinus rhythm. She is currently back in A fib, HR 80s-120s. Blood pressure 108/61 HR 96. On IV Cardizem and coreg 12.5mg BID 02/05 Patient seen and examined at bedside, no acute distress. She denies any chest pain or shortness of breath or palpitations.She continues to be in A fib with RVR. Starting on IV Cardizem again overnight with increased to 15mg/hr. heart rates in the 120s blood pressure 118/72. Yesterday coreg was stopped and patient transition to metoprolol succinate PHYSICAL EXAMINATION CONSTITUTIONAL: No apparent distress. HEENT: Neck Supple. No JVD. CHEST EXAMINATION: Lungs are clear to auscultation. No chest wall tenderness is noted on palpation or with deep breathing. HEART EXAMINATION: Tachycardic Irregular, regular rhythm. S1, S2 heard. No murmurs, gallops or rub. ABDOMEN: Soft, nontender. Positive bowel sounds. EXTREMITIES: 2+ peripheral pulses, no lower extremity edema and no calf tenderness. SKIN: Warm, dry NEUROLOGIC EXAMINATION: Patient is awake, alert and oriented x3. ASSESSMENT SVT with short RP vs atrial tachycardia Paroxysmal atrial fibrillation with RVR status post cardioversion in 09/2021 and Ablation on 10/22/2021, on Eliquis Hypertension GERD Dyslipidemia History of osteoporosis Unable to tolerate IV amiodarone PLAN Stop IV Cardizem PO Cardizem 30mg TID Increase metoprolol succinate 75mg BID Continue to hold home dyazide and amlodipine at this time Continue to monitor patient for additional 24 hours secondary to uncontrolled heart rates Further recommendations based on clinical course Nurse practitioner note has been reviewed by physician. Signing provider agrees with the documented findings, assessment, and plan of care. Objective - Vital Signs Vital signs: Vital Signs Temp 99.6 F 02/05/22 08:00 Pulse 126 H 02/05/22 08:00 Resp 18 02/05/22 08:00 BP 126/82 02/05/22 08:00 Pulse Ox 89 L 02/05/22 08:00 FiO2 Intake & Output 02/04/22 02/05/22 02/05/22 18:59 06:59 18:59 Intake Total 29.834 122.5 Balance 29.834 122.5 Intake: Intake, IV Titration 29.834 122.5 Amount Diltiazem 125 mg In 27.334 Sodium Chloride 0.9% 100 ml @ 10 MG/HR 10 mls/hr IV .[id number] [facility] Rx#: [id number] Diltiazem 125 mg In 2.5 122.5 Sodium Chloride 0.9% 100 ml @ 15 MG/HR 15 mls/hr IV .[id number] [facility] Rx#: [id number] Other: Voiding Method Toilet Toilet # Voids 2 2 - Labs CBC & Chem 7: 02/03/22 08:05 02/03/22 21:28
--- NOTE | 2022-02-05 16:49 | P.PN ---
Subjective Progress Note Date: 02/05/22 Patient is seen at bedside and denies any new neurological deficit. Denies of any further dizziness. Objective - Vital Signs Vital signs: Vital Signs Temp 98.1 F 02/05/22 15:07 Pulse 76 02/05/22 15:07 Resp 18 02/05/22 15:07 BP 145/78 02/05/22 15:07 Pulse Ox 97 02/05/22 15:07 FiO2 Intake & Output 02/04/22 02/05/22 02/05/22 18:59 06:59 18:59 Intake Total 29.834 122.5 118 Balance 29.834 122.5 118 Weight 67.132 kg Intake: Intake, IV Titration 29.834 122.5 Amount Diltiazem 125 mg In 27.334 Sodium Chloride 0.9% 100 ml @ 10 MG/HR 10 mls/hr IV .[id number] [facility] Rx#: [id number] Diltiazem 125 mg In 2.5 122.5 Sodium Chloride 0.9% 100 ml @ 15 MG/HR 15 mls/hr IV .[id number] [facility] Rx#: [id number] Oral 118 Other: Voiding Method Toilet Toilet Toilet # Voids 2 2 - Exam GENERAL: The patient is lying in bed and is not in acute distress. NEUROLOGICAL: Higher mental function: The patient is awake, alert, oriented to self, place and time. Patient is following commands. No aphasia and no neglect. Cranial nerves: The pupils are round, equal and reactive to light and accommodation. Visual michel are full to confrontation throughout. Extraocular movement is intact no nystagmus is noted. Facial sensation is normal to touch throughout. The facial strength is normal throughout. Hearing is slightly decreased bilaterally to hand rub. Tongue is midline and moved [id number] without any difficulty. No dysarthria is noted. Shoulder shrug is normal bilaterally. Motor: Gait is deferred. The strength is 5 over 5 throughout. Normal tone and bulk. Cerebellum: Normal finger to nose heel to chin bilaterally. Sensation: Sensation is normal to touch throughout. Reflexes (right/left): 1+ throughout. Plantars are mute bilaterally. SOME OF THE WORK-UP DURING THIS HOSPITAL VISIT CONSISTED OF: Orthostatic vitals are negative. Supine is 112/79, sitting is 115/81 and standing is 105/73. EKG is reported as a perpendicular tachycardia with frequent premature ventricular complexes. Nonspecific ST and T-wave abnormality. Abnormal EKG. TSH is 0.80 Vitamin B12: 338 Serum Folate 18.60 HbA1: 6.5 - Labs CBC & Chem 7: 02/03/22 08:05 02/03/22 21:28 Assessment and Plan Assessment: Her slow gait/unsteady seems chronic is likely due to multifactorial: Pe ripheral neuropathy (per patient for at least 9 years) predominately and in addition due to arthritis (knees). Supraventricular tachycardia vs atrial tachycardia Proximal atrial fibrillation status post cardioversion 2021 and ablation 2021 on Eliquis Newly diagnosed DM (HbA1c 6.5) Hypertension Osteoporosis Dyslipidemia Plan: Since has low normal vitamin B12: Started on Vitamin B12 1000mcg daily. PT orthostatics are negative. Recommended imaging such as CT or MRI Brain but the patient refused. From the patient's history and examination patient does not seem to have a stroke. She continues to refuse. If the patient continues to have lightheadedness/dizziness even though the atrial fibrillations/SVT vs atrial tachycrdia then recommend patient to be evaluated by ENT as outpatient with consideration of vestibular rehab therapy. Recommend EMG with nerve conduction study of the bilateral lower extremities as outpatient. Physical therapy and occupation therapy are consulted for gait training. Cardiology on board. Will defer the rest of medical management to primary team. Recommend patient to follow-up with neurologist as outpatient within 1-2 weeks. Otherwise no additional workup is needed from a neurological perspective besides above. Will sign off. Please reconsult if needed. Luis Carlos Mott M.D. Neuro-Hospitalist Time with Patient: Less than 30
--- NOTE | 2022-02-05 17:21 | XR ---
EXAMINATION TYPE: XR chest 1V DATE OF EXAM: 02/05/2022 COMPARISON: 02/02/2022 HISTORY: Short of breath TECHNIQUE: Single view FINDINGS: There is mild blunting right costophrenic angle. Heart is borderline enlarged. No heart herson lure. There are chest leads. There are no hilar masses. IMPRESSION: There is a right pleural effusion which appears new compared to old exam. Mild prominent fibrosis. No obvious heart failure.
[2022-02-05] MEDS ORDERED: ALPRAZolam 0.25 MG TAB PO STA (20:27)
[2022-02-05] MEDS ORDERED: METOPROLOL SUCCINATE (ER) 25 MG TAB.ER.24H PO SCH (21:00)
[2022-02-06] MEDS ORDERED: METOPROLOL SUCCINATE (ER) 25 MG TAB.ER.24H PO STA (01:02)
--- NOTE | 2022-02-06 06:35 | P.PN ---
Subjective Progress Note Date: 02/06/22 Principal diagnosis: Paroxysmal atrial fibrillation The patient is a pleasant 81-year-old female patient with a past medical history significant for paroxysmal atrial fibrillation status post cardioversion in September 2021 and ablation in November 2021. She was admitted to the hospital with symptomatic atrial fibrillation and evidence of A. fib with RVR. The patient was seen today. February 062021. She continues to be in atrial fibrillation with uncontrolled heart rate. Curr ently she is on beta terry and calcium channel terry. We tried amiodarone but she could not tolerate the medication. She continues to be symptomatic from the atrial fibrillation. Also she seems to be somewhat congested. The chest examination is clear over all the way to obtain a chest x-ray and an T proBNP for further clarification. Meanwhile I'm going to pursue with a cardioversion giving that the patient is very symptomatic and she felt medical treatment. She stated that she has been taking oral anticoagulation. Objective - Vital Signs Vital signs: Vital Signs Temp 97.9 F 02/05/22 20:00 Pulse 160 H 02/06/22 04:00 Resp 24 02/06/22 04:00 BP 127/71 02/06/22 04:00 Pulse Ox 91 L 02/06/22 04:00 FiO2 Intake & Output 02/05/22 02/05/22 02/06/22 06:59 18:59 06:59 Intake Total 122.5 236 970 Balance 122.5 236 970 Weight 67.132 kg Intake: Intake, IV Titration 122.5 Amount Diltiazem 125 mg In 122.5 Sodium Chloride 0.9% 100 ml @ 15 MG/HR 15 mls/hr IV .[id number] [facility] Rx#: [id number] Oral 236 970 Other: Voiding Method Toilet Toilet Toilet # Voids 2 1 - Constitutional General appearance: Present: no acute distress - Respiratory Respiratory: bilateral: diminished - Cardiovascular Rhythm: irregularly irregular - Labs CBC & Chem 7: 02/03/22 08:05 02/03/22 21:28 Assessment and Plan Assessment: Assessment A. fib with RVR Hypertension Dyslipidemia Plan Increase the dose of beta terry and calcium channel terry Proceed with a cardioversion. No need for ANABEL.
[2022-02-06 08:04] LABS: Partial Thromboplastin Time 27.2 sec (22.0-30.0)
[2022-02-06] MEDS: APIXABAN 2.5 MG TABLET PO SCH ×2 (08:12→20:14)
[2022-02-06] MEDS: DILTIAZEM ORAL 60 MG TAB PO SCH ×3 (08:12→21:03)
[2022-02-06] MEDS: CYANOCOBALAMIN 500 MCG TAB PO SCH (08:12)
[2022-02-06] MEDS: METOPROLOL SUCCINATE (ER) 100 MG TAB.ER.24H PO SCH ×2 (08:12→20:19)
[2022-02-06] MEDS ORDERED: SODIUM CHLORIDE 0.9% 1,000 ML IV ONE (10:17)
[2022-02-06] MEDS ORDERED: PROPOFOL 10 MG/ML 20 ML VIAL IV ONE (10:17)
--- NOTE | 2022-02-06 10:34 | P.PCN ---
Date of Procedure: 02/06/22 Operative Findings: Cardioversion Report Performing physician Ismael Crum M.D. Procedure performed Successful cardioversion of atrial fibrillation to normal sinus mechanism using 200 J at first attempt Indication Symptomatic atrial fibrillation did not respond to beta terry or calcium channel terry or any other Complication None Level of sedation The procedure was performed under deep sedation using propofol with PODIATRIC MEDICINE PROFESSOR in the room Procedure description After obtaining an informed consent the patient was brought to the recovery room. Sedation was introduced using propofol with PODIATRIC MEDICINE PROFESSOR in the room. Subsequently the patient cardioverted from atrial fibrillation to normal sinus mechanism using 200 J and first attempt Conclusion Successful cardioversion of atrial fibrillation to normal sinus mechanism using 200 J Postprocedure management Continue the current medical regimen Continue oral anticoagulation Follow-up with the patient
[2022-02-06] MEDS ORDERED: FUROSEMIDE 10 MG/ML 4 ML VIAL IV ONE (10:45)
--- NOTE | 2022-02-06 11:03 | P.CNPUL ---
History of Present Illness Consult date: 02/06/22 Requesting physician: Reagan E Fransisca Reason for consult: dyspnea, cough, hypoxemia, pneumonia, abnormal CXR/CT Chief complaint: Shortness of breath. History of present illness: Pulmonary consult dated 02/06/2022. This is an 81-year-old female who was initially seen in the emergency room on February 02, for rapid heart rate, and palpitations. She apparently presented with atrial fibrillation and RVR. Today, she underwent cardioversion with 200 J. She was converted after only one cardioversion. Unfortunately, she seems to be very short of breath, and, I was called by cardiology for possible placement into the intensive care unit. The patient was in phase I or recovery, and I went to go see her. She appears to possibly have aspirated as he was increased density in the right chest compared to the left, and, she may also have a touch of CHF. The BMP was elevated. The patient is a lifelong nonsmoker. The patient sees primarily her family doctor, and also cardiology. She does have a history of atrial fibrillation, gastroesophageal reflux disease, hyperlipidemia, hypertension, osteoarthritis, and rheumatoid arthritis. She also has a previous history of cardiac, now with a pericardial window. She also has a history of osteoporosis, and diverticular disease. PT INR and PTT are normal. The N- terminal proBNP was 8770. The chest x-ray showed diffuse bilateral infiltrates, a bit more dense on the right side. I did spend nurse in phase I recovery to give her Lasix I also spoke to my charge nurse in the ICU. She will need a pro- calcitonin level, chest x-ray in the morning, and labs in the morning. Review of Systems REVIEW OF SYSTEMS: CONSTITUTIONAL: [Negative.] NEUROLOGIC: [ Negative.] HEENT: [ Negative.] CARDIAC: Rapid heartbeat, palpitations. PULMONARY: Shortness of breath, chest congestion, cough. GI: [Negative.] : [Negative.] RHEUMATOLOGIC: [ Negative.] IMMUNOLOGIC: [ Negative.] ENDOCRINE: [Negative. ] DERMATOLOGIC: [Negative.] Past Medical History Past Medical History: Atrial Fibrillation, GERD/Reflux, Hyperlipidemia, Hypertension, Osteoarthritis (OA), Rheumatoid Arthritis (RA) Additional Past Medical History / Comment(s): Paroxysmal afib, cardiac tamponade/pericardial window, possible rheumatoid arthritis, osteoporosis, diverticular disease, benign colon polp. History of Any Multi-Drug Resistant Organisms: None Reported Past Surgical History: Breast Surgery, Section, EPS, Joint Replacement, Tonsillectomy, Tubal Ligation Additional Past Surgical History / Comment(s): Cardioversions, EPS with ablations, pericardial window, bilateral total knee replacements, D&Cs, R breast benign lumpectomy, colonoscopy, bilateral cataract removals/lens implants Past Anesthesia/Blood Transfusion Reactions: Postoperative Nausea & Vomiting (P ONV) Additional Past Anesthesia/Blood Transfusion Reaction / Comment(s): Pt has 2U PRBCs with a heart cath. Cath punctured a hole in her heart, and she ended up needing open heart surgery. Past Psychological History: No Psychological Hx Reported Additional Psychological History / Comment(s): Pt resides with her spouse. She is independent. Smoking Status: Never smoker Past Alcohol Use History: Rare Additional Past Alcohol Use History / Comment(s): Patient is a lifelong nonsmoker, no alcohol use, no illicit drug use or marijuana use. Patient does not require CPAP, oxygen. She is ambulatory without equipment. Past Drug Use History: None Reported - Past Family History Father Family Medical History: Cancer, CVA/TIA Additional Family Medical History / Comment(s): Father at age 80 from bladder cancer, with history of CVA. Mother Family Medical History: Myocardial Infarction ([place]) Additional Family Medical History / Comment(s): Mother at age 42 from a myocardial infarction. Brother(s) Family Medical History: Blood Disorder, CVA/TIA Additional Family Medical History / Comment(s): Patient was 4 brothers and one h as history of factor V, 3 have had strokes. Medications and Allergies Home Medications Medication Instructions Recorded Confirmed Type Multivitamins, Thera [Multivitamin 1 tab PO DAILY 03/14/18 02/02/22 History (formulary)] Calcium Carb/Vitamin D3/Vit K1 1 tab PO DAILY 08/27/19 02/02/22 History [Citracal-D3 500 mg Soft Chew] Cholecalciferol (Vitamin D3) 125 mcg PO DAILY 12/30/20 02/02/22 History [Vitamin D3 (125 MCG = 5,000 IU)] Magnesium 250 mg PO DAILY 12/30/20 02/02/22 History Apixaban [Eliquis] 2.5 mg PO BID 02/07/21 02/02/22 History Omeprazole 40 mg PO DAILY 01/18/22 02/02/22 History carvediloL [Coreg] 6.25 mg PO BID 01/18/22 02/02/22 History Triamterene/Hydrochlorothiazid 1 cap PO DAILY 01/19/22 02/02/22 History [Triamterene-Hctz 37.5-25 mg Cp] Allergies Allergy/AdvReac Type Severity Reaction Status Date / Time contact metal agent Allergy Unknown Unknown Verified 02/02/22 08:11 adhesive tape Allergy Rash/Hives Verified 02/02/22 08:11 nickel Allergy burning, Verified 02/02/22 08:11 pain Physical Exam Osteopathic Statement: *. No significant issues noted on an osteopathic structural exam other than those noted in the History and Physical/Consult. Vitals: Vital Signs Temp Pulse Pulse Pulse Resp BP BP 02/06/22 10:30 52 L 16 116/68 02/06/22 10:26 97 F L 93 16 105/61 02/06/22 10:16 139 H 24 139/76 02/06/22 08:26 97.8 F 161 H 24 02/06/22 04:00 160 H 24 127/71 02/06/22 00:00 123 H 22 119/69 02/05/22 20:00 97.9 F 73 36 H 147/75 02/05/22 19:51 96 24 02/05/22 19:39 98.8 F 96 24 130/76 02/05/22 15:07 98.1 F 76 18 145/78 02/05/22 14:00 71 132 H 18 02/05/22 11:56 98.4 F 71 18 BP Pulse Ox 02/06/22 10:30 99 02/06/22 10:26 99 02/06/22 10:16 90 L 02/06/22 08:26 108/72 90 L 02/06/22 04:00 91 L 02/06/22 00:00 90 L 02/05/22 20:00 93 L 02/05/22 19:51 02/05/22 19:39 91 L 02/05/22 15:07 97 02/05/22 14:00 02/05/22 11:56 118/72 98 Intake and Output 09/16/22 09/17/22 09/17/22 22:59 06:59 14:59 Intake Total 603 485 Balance 603 485 Intake: Oral 603 485 Other: Voiding Method Toilet Toilet # Voids 1 1 No acute distress, oriented 3. Mild tachypnea, currently on 6 L of oxygen. HEENT examination is grossly unremarkable. Neck supple. Full range of motion. No adenopathy thyromegaly or neck vein distention. Cardiovascular examination reveals regular rhythm rate. S1-S2 normal. No S3 or S4. No discernible murmur noted. Heart rate 52 bpm. Lungs reveal scattered bilateral rhonchi, and mild expiratory wheezes. Breath sounds are coarse. No crackles. Breath sounds are equal bilaterally. Saturati ons are 99%. Abdomen soft bowel sounds are heard. No masses or tenderness. Extremities are intact. No cyanosis clubbing or edema. Skin is without rash or lesion. Neurologic examination is brief but nonfocal. Results - Laboratory Findings CBC and BMP: 02/03/22 08:05 02/03/22 21:28 PT/INR, D-dimer PT 11.0 sec (9.0-12.0) 02/06/22 07:22 INR 1.0 (<1.2) 02/06/22 07:22 Abnormal lab findings: Abnormal Labs 02/02/22 02/02/22 02/02/22 04:45 04:45 08:50 Lymphocytes # BUN 19 H Glucose 156 H Hemoglobin A1c AST 66 H ALT 43 H Troponin I 0.046 H* 0.055 H* Total Protein 6.2 L 02/02/22 02/03/22 02/03/22 11:36 08:05 08:05 Lymphocytes # 0.9 L BUN Glucose 188 H Hemoglobin A1c AST ALT Troponin I 0.057 H* Total Protein 02/03/22 08:05 Lymphocytes # BUN Glucose Hemoglobin A1c 6.5 H AST ALT Troponin I Total Protein - Diagnostic Findings Chest x-ray: image reviewed Assessment and Plan Assessment: Atrial fibrillation/RVR, with cardioversion, 02/06/2022. Shortness of breath, multifactorial, in part related to CHF, and possible aspiration pneumonia. History of chronic atrial fibrillation. History of hypertension. History of hyperlipidemia. History of rheumatoid arthritis. Previous history of cardiac In with pericardial window. History of osteoporosis. Previous history of cardioversions and electrophysiologic studies with ablation. Plan: Plan dated 02/06/2022. I was called by cardiology. I do appreciate the phone call. The patient was seen in phase I recovery. The patient should certainly go back to the intensive care unit. She short of breath, which likely relates to possible aspiration pneumonia and/or mild fluid overload/CHF. The patient was cardioverted with 200 J. She was back in normal sinus rhythm after only one cardioversion. She has no prior history of any lung issues. She is a lifelong nonsmoker. We will check a pro-calcitonin level. I've asked her morning labs and x-rays. Time with Patient: Greater than 30
--- NOTE | 2022-02-06 11:10 | XR ---
EXAMINATION TYPE: XR chest 1V DATE OF EXAM: 02/06/2022 COMPARISON: 02/05/2022 HISTORY: 81 year-old female shortness of breath TECHNIQUE: Single frontal view of the chest is obtained. FINDINGS: Heart mildly enlarged. Diffuse interstitial opacity persists. Calcified granuloma left base. Patchy o pacity periphery of the right mid and lower lung is increasing. Right hilar prominence may reflect un derlying pulmonary arterial hypertension. IMPRESSION: 1. Mild cardiomegaly and diffuse interstitial opacity. Correlate for possible CHF with pulmonary vasc ular congestion or atypical pneumonias. 2. Developing patchy pulmonary edema versus infiltrate at the periphery of the right mid and lower brittani ng. Correlate for any symptoms of potential pneumonia.
[2022-02-06 11:33] LABS: Glucose,Whole Blood 133 mg/dL (70-110)
[2022-02-06] MEDS: PIPERACILLIN-TAZOBACTAM 3.375 GM in SODIUM CHLORIDE 0.9% 100 ML IVPB SCH ×2 (12:06→23:56)
[2022-02-06 13:19] LABS: Magnesium 1.7 mg/dL (1.6-2.3); Potassium 3.5 mmol/L (3.5-5.1)
[2022-02-06] MEDS ORDERED: Magnesium Replacement Protocol 1 EACH MISC MISCELLANE PRN (13:41)
[2022-02-06] MEDS ORDERED: Potassium Replacement Protocol 1 EACH MISC MISCELLANE PRN (13:42)
[2022-02-06] MEDS: POTASSIUM CHLORIDE ER 20 MEQ TAB.ER PO SCH ×2 (13:54→17:07)
[2022-02-06] MEDS: MAGNESIUM SULFATE-D5W PMX 1 GM in DEXTROSE/WATER 1 100ML.BAG IVPB SCH ×2 (13:55→14:55)
[2022-02-06] MEDS: guaiFENesin SYRUP 100MG/5ML 200 MG/10 ML CUP PO PRN ×2 (14:20→21:39)
--- NOTE | 2022-02-06 17:55 | P.PN ---
Subjective Progress Note Date: 02/05/22 81-year-old lady with past medical history significant for atrial fibrillation, hyperlipidemia, hypertension who presented to the ER because of palpitations. She was all right yesterday night when she went to bed at which time her apple watch notified of her heart rate being in the 170s. At that time patient was also complaining of palpitations. Patient also complaining of dizziness. Patient was brought to the ER of [facility]. Initial EKG showed SVT versus atrial tachycardia with heart rate 170s. Patient was started on IV Cardizem drip and admitted to hospitalist service. Objective - Vital Signs Vital signs: Vital Signs Temp 98.4 F 02/05/22 11:56 Pulse 71 02/05/22 11:56 Resp 18 02/05/22 11:56 BP 118/72 02/05/22 11:56 Pulse Ox 98 02/05/22 11:56 FiO2 Intake & Output 02/04/22 02/05/22 02/05/22 18:59 06:59 18:59 Intake Total 29.834 122.5 Balance 29.834 122.5 Intake: Intake, IV Titration 29.834 122.5 Amount Diltiazem 125 mg In 27.334 Sodium Chloride 0.9% 100 ml @ 10 MG/HR 10 mls/hr IV .[id number] [facility] Rx#: [id number] Diltiazem 125 mg In 2.5 122.5 Sodium Chloride 0.9% 100 ml @ 15 MG/HR 15 mls/hr IV .[id number] [facility] Rx#: [id number] Other: Voiding Method Toilet Toilet # Voids 2 2 - Exam GENERAL: The patient is alert and oriented x3, not in any acute distress. Well developed, well nourished. HEENT: Pupils are round and equally reacting to light. EOMI. No scleral icterus. No conjunctival pallor. Normocephalic, atraumatic. No pharyngeal erythema. No thyromegaly. CARDIOVASCULAR: S1 and S2 present. No murmurs, rubs, or gallops. Tachycardia PULMONARY: Chest is clear to auscultation, no wheezing or crackles. ABDOMEN: Soft, nontender, nondistended, normoactive bowel sounds. No palpable organomegaly. MUSCULOSKELETAL: No joint swelling or deformity. EXTREMITIES: No cyanosis, clubbing, or pedal edema. NEUROLOGICAL: Gross neurological examination did not reveal any focal deficits. SKIN: No rashes. - Labs CBC & Chem 7: 02/03/22 08:05 02/06/22 11:55 Assessment and Plan Assessment: SVT with short RP vs atrial tachycardia Paroxysmal atrial fibrillation status post cardioversion in 09/2021 and Ablation on 10/22/2021, on Eliquis Hypertension GERD Dyslipidemia History of osteoporosis Unsteady gait Plan; Continue telemetry monitoring. Monitor electrolytes. Monitor renal functions Continue Toprol 50 mg twice a day Continue eliquis Neurology evaluated The patient and ordered vitamin B12, folate, HbA1c, orthostatic vitals. They recommended imaging such as CT or MRI Brain but the patient refused. From the patient's history and examination patient does not seem to have a stroke. Neurology stated that If the patient continues to have lightheadedness/dizziness even though the atrial fibrillations/SVT vs atrial tachycrdia then recommend patient to be evaluated by ENT as outpatient with consideration of vestibular rehab therapy. Follow-up on PT and OT recommendations Follow up in cardiology recommendations
--- NOTE | 2022-02-06 17:58 | P.PN ---
Subjective Progress Note Date: 02/06/22 Principal diagnosis: Atrial fibrillation with RVR/ plans for cardioversion 81-year-old lady with past medical history significant for atrial fibrillation, hyperlipidemia, hypertension who presented to the ER because of palpitations. She was all right yesterday night when she went to bed at which time her apple watch notified of her heart rate being in the 170s. At that time patient was also complaining of palpitations. Patient also complaining of dizziness. Patient was brought to the ER of [facility]. Initial EKG showed SVT versus atrial tachycardia with heart rate 170s. Patient was started on IV Cardizem drip and admitted to hospitalist service. 02/06/2022 Patient is seen and evaluated in room at bedside; remains in atrial fibrillation with heart rate ranging between 140s to 160s Vital signs reveal temperature of 97.9, pulse 160, respiration 24 and blood pressure 127/71 - Patient remains on beta blockers and calcium channel blockers; was intolerant of amiodarone which was discontinued Cardiology planning to take patient for cardioversion given uncontrolled heart rate and patient being symptomatic Objective - Vital Signs Vital signs: Vital Signs Temp 97.8 F 02/06/22 08:26 Pulse 161 H 02/06/22 08:26 Resp 24 02/06/22 08:26 BP 108/72 02/06/22 08:26 Pulse Ox 90 L 02/06/22 08:26 FiO2 Intake & Output 02/05/22 02/06/22 02/06/22 18:59 06:59 18:59 Intake Total 236 970 Balance 236 970 Weight 67.132 kg Intake: Oral 236 970 Other: Voiding Method Toilet Toilet # Voids 1 - Exam GENERAL: The patient is alert and oriented x3, not in any acute distress. Well developed, well nourished. HEENT: Pupils are round and equally reacting to light. EOMI. No scleral icterus. No conjunctival pallor. Normocephalic, atraumatic. No pharyngeal erythema. No thyromegaly. CARDIOVASCULAR: S1 and S2 present. No murmurs, rubs, or gallops. Tachycardia PULMONARY: Chest is clear to auscultation, no wheezing or crackles. ABDOMEN: Soft, nontender, nondistended, normoactive bowel sounds. No palpable organomegaly. MUSCULOSKELETAL: No joint swelling or deformity. EXTREMITIES: No cyanosis, clubbing, or pedal edema. NEUROLOGICAL: Gross neurological examination did not reveal any focal deficits. SKIN: No rashes. - Labs CBC & Chem 7: 02/03/22 08:05 02/06/22 11:55 Assessment and Plan Assessment: SVT with short RP vs atrial tachycardia Paroxysmal atrial fibrillation status post cardioversion in 09/2021 and Ablation on 10/22/2021, on Eliquis Hypertension GERD Dyslipidemia History of osteoporosis Unsteady gait Plan; Continue telemetry monitoring. Monitor electrolytes. Monitor renal functions Continue Toprol 50 mg twice a day Continue eliquis Neurology evaluated The patient and ordered vitamin B12, folate, HbA1c, orthostatic vitals. They recommended imaging such as CT or MRI Brain but the patient refused. From the patient's history and examination patient does not seem to have a stroke. Neurology stated that If the patient continues to have lightheadedness/dizziness even though the atrial fibrillations/SVT vs atrial tachycrdia then recommend patient to be evaluated by ENT as outpatient with consideration of vestibular rehab therapy. Follow-up on PT and OT recommendations Follow up in cardiology recommendations
[2022-02-06] MEDS: FUROSEMIDE 10 MG/ML 2 ML VIAL IV SCH (20:14)
[2022-02-06] MEDS ORDERED: PIPERACILLIN-TAZOBACTAM 3.375 GM in SODIUM CHLORIDE 0.9% 100 ML IVPB SCH (21:00)
[2022-02-07] MEDS: BENZOCAINE/MENTHOL LOZENG 1 EACH LOZENGE MUCOUS MEM PRN ×2 (04:14→20:41)
[2022-02-07] MEDS ORDERED: IPRATROPIUM-ALBUTEROL 3 ML NEB INHALATION PRN ×2 (04:54→08:51)
[2022-02-07] MEDS: guaiFENesin SYRUP 100MG/5ML 200 MG/10 ML CUP PO PRN ×4 (05:50→21:48)
[2022-02-07 05:52] LABS: Basophils % (A) 0 %; Eosinophils # (A) 0.2 k/uL (0-0.7); Eosinophils % (A) 2 %; HCT 34.7 % (34.0-46.0); HGB 11.3 gm/dL (11.4-16.0); Lymphocytes # (A) 0.8 k/uL (1.0-4.8); Lymphocytes % (A) 8 %; MCH 29.8 pg (25.0-35.0); MCHC 32.7 g/dL (31.0-37.0); Mean Platelet Volume 8.3; Monocytes # (A) 0.6 k/uL (0-1.0); Monocytes % (A) 6 %; Neutrophils # (A) 8.3 k/uL (1.3-7.7); Neutrophils % (A) 83 %; Platelet Count 176 k/uL (150-450); RBC 3.81 m/uL (3.80-5.40); RDW 14.3 % (11.5-15.5)
[2022-02-07 06:07] LABS: Albumin 3.3 g/dL (3.5-5.0); Calcium 8.1 mg/dL (8.4-10.2); Magnesium 2.1 mg/dL (1.6-2.3); Phosphorus 2.8 mg/dL (2.5-4.5); Potassium 3.4 mmol/L (3.5-5.1); Total Bilirubin 1.1 mg/dL (0.2-1.3); Total Protein 5.6 g/dL (6.3-8.2)
[2022-02-07] MEDS: POTASSIUM CHLORIDE ER 20 MEQ TAB.ER PO SCH ×2 (06:26→08:41)
--- NOTE | 2022-02-07 08:02 | XR ---
EXAMINATION TYPE: XR chest 1V portable DATE OF EXAM: 02/07/2022 Comparison: 02/06/2022 Clinical History: 81 year-old female shortness of breath Findings: Heart borderline in size. Diffuse interstitial opacities persist. Improving airspace disease peripher y of the right lung. Slight increasing patchy density retrocardiac region. Stable calcified granuloma left base. No pleural effusion. Impression: Mild bilateral interstitial opacities persist. Airspace disease in the periphery of the right lung is improving. Patchy opacity at the left base slightly worsened.
--- NOTE | 2022-02-07 08:04 | P.PN ---
Subjective Progress Note Date: 02/07/22 Principal diagnosis: Paroxysmal atrial fibrillation The patient is a pleasant 81-year-old female patient with a past medical history significant for paroxysmal atrial fibrillation status post cardioversion in September 2021 and ablation in November 2021. She was admitted to the hospital with symptomatic atrial fibrillation and evidence of A. fib with RVR. The patient was seen today. February 062021. She continues to be in atrial fibrillation with uncontrolled heart rate. Curr ently she is on beta terry and calcium channel trery. We tried amiodarone but she could not tolerate the medication. She continues to be symptomatic from the atrial fibrillation. Also she seems to be somewhat congested. The chest examination is clear over all the way to obtain a chest x-ray and an T proBNP for further clarification. Meanwhile I'm going to pursue with a cardioversion giving that the patient is very symptomatic and she felt medical treatment. She stated that she has been taking oral anticoagulation. February 072021 The patient underwent cardioversion yesterday. She was seen today in the intensive care unit. She has been maintaining normal sinus mechanism. Cu rrently she is on non-dihydropyridine calcium channel terry along with beta terry. In the past she was tried on amiodarone but she could not tolerate the medication. Beside that I transfer the patient yesterday to the intensive care unit because she was congested and tachypneic and she was in mild respiratory distress and she was diagnosed with pneumonia with a component of heart failure. Currently she is on antibiotic for the pneumonia. She is on Lasix. She has been diuresing very well. She is also on oral anticoagulation for the atrial fibrillation. Overall she looks better. Objective - Vital Signs Vital signs: Vital Signs Temp 97.8 F 02/06/22 20:00 Pulse 67 02/07/22 07:00 Resp 17 02/07/22 07:00 BP 145/84 02/07/22 07:00 Pulse Ox 97 02/07/22 07:00 FiO2 Intake & Output 02/06/22 02/07/22 02/07/22 18:59 06:59 18:59 Intake Total 640 150 Output Total 600 600 Balance 40 -450 Intake: Intake, IV Titration 300 Amount Magnesium Sulfate-D5w Pmx 200 1 gm In Dextrose/Water 1 100ml.bag @ 100 mls/hr IVPB Q1H [facility] Rx#: [id number] Piperacillin-Tazobactam 3 100 .375 gm In Sodium Chloride 0.9% 100 ml @ 25 mls/hr IVPB Q12H [facility] Rx# :[id number] Oral 340 150 Output: Urine 600 600 Other: Voiding Method External Catheter External Catheter # Voids 1 # Bowel Movements 1 - Constitutional General appearance: Present: no acute distress - Respiratory Respiratory: bilateral: rales - Cardiovascular Rhythm: regular - Labs CBC & Chem 7: 02/07/22 05:40 02/07/22 05:40 Labs: Abnormal Lab Results - Last 24 Hours (Table) 02/06/22 02/06/22 02/07/22 Range/Units 11:31 11:55 05:40 Hgb 11.3 L (11.4-16.0) gm/dL Neutrophils # 8.3 H (1.3-7.7) k/uL Lymphocytes # 0.8 L (1.0-4.8) k/uL Sodium (137-145) mmol/L Potassium (3.5-5.1) mmol/L Chloride (98-107) mmol/L BUN (7-17) mg/dL Glucose (74-99) mg/dL POC Glucose (mg/dL) 133 H (70-110) mg/dL Calcium (8.4-10.2) mg/dL AST (14-36) U/L ALT (4-34) U/L Total Protein (6.3-8.2) g/dL Albumin (3.5-5.0) g/dL Procalcitonin 0.59 H (0.02-0.09) ng/mL 02/07/22 Range/Units 05:40 Hgb (11.4-16.0) gm/dL Neutrophils # (1.3-7.7) k/uL Lymphocytes # (1.0-4.8) k/uL Sodium 131 L (137-145) mmol/L Potassium 3.4 L (3.5-5.1) mmol/L Chloride 92 L (98-107) mmol/L BUN 23 H (7-17) mg/dL Glucose 130 H (74-99) mg/dL POC Glucose (mg/dL) (70-110) mg/dL Calcium 8.1 L (8.4-10.2) mg/dL AST 303 H (14-36) U/L ALT 418 H (4-34) U/L Total Protein 5.6 L (6.3-8.2) g/dL Albumin 3.3 L (3.5-5.0) g/dL Procalcitonin (0.02-0.09) ng/mL Assessment and Plan Assessment: Assessment #1 atrial fibrillation with rapid ventricular response status post cardioversion #2 history of paroxysmal atrial fibrillation #3 heart failure with reduced ejection fraction #4 pneumonia #5 multiple comorbid conditions Plan #1 monitor the patient in the intensive. For additional 24 hours #2 continue IV diuretics #3 continue monitor the kidney function and electrolytes #4 continue antibiotic there internal medicine team #5 continue oral anticoagulation #6 down the line we need to wean the patient/stop non-dihydropyridine calcium channel terry in the light of cardiomyopathy
[2022-02-07] MEDS: CYANOCOBALAMIN 500 MCG TAB PO SCH (08:41)
[2022-02-07] MEDS: DILTIAZEM ORAL 60 MG TAB PO SCH ×3 (08:41→21:48)
[2022-02-07] MEDS: METOPROLOL SUCCINATE (ER) 100 MG TAB.ER.24H PO SCH ×2 (08:41→19:48)
[2022-02-07] MEDS: APIXABAN 2.5 MG TABLET PO SCH ×2 (08:41→19:48)
[2022-02-07] MEDS: FUROSEMIDE 10 MG/ML 2 ML VIAL IV SCH ×2 (08:41→19:48)
[2022-02-07] MEDS: IPRATROPIUM-ALBUTEROL 3 ML NEB INHALATION SCH ×4 (09:06→19:49)
--- NOTE | 2022-02-07 10:47 | P.PN ---
Subjective Progress Note Date: 02/07/22 Principal diagnosis: Status post cardioversion for atrial fibrillation. Pulmonary consult dated 02/06/2022. This is an 81-year-old female who was initially seen in the emergency room on February 02, for rapid heart rate, and palpitations. She apparently presented with atrial fibrillation and RVR. Today, she underwent cardioversion with 200 J. She was converted after only one cardioversion. Unfortunately, she seems to be very short of breath, and, I was called by cardiology for possible placement into the intensive care unit. The patient was in phase I or recovery, and I went to go see her. She appears to possibly have aspirated as he was increased density in the right chest compared to the left, and, she may also have a touch of CHF. The BMP was elevated. The patient is a lifelong nonsmoker. The patient sees primarily her family doctor, and also cardiology. She does have a history of atrial fibrillation, gastroesophageal reflux disease, hyperlipidemia, hypertension, osteoarthritis, and rheumatoid arthritis. She also has a previous history of cardiac, now with a pericardial window. She also has a history of osteoporosis, and diverticular disease. PT INR and PTT are normal. The N- terminal proBNP was 8770. The chest x-ray showed diffuse bilateral infiltrates, a bit more dense on the right side. I did spend nurse in phase I recovery to give her Lasix I also spoke to my charge nurse in the ICU. She will need a pro- calcitonin level, chest x-ray in the morning, and labs in the morning. Progress note dated 02/07/2022. 81-year-old female room 266. Yesterday, she was seen in phase I recovery. She was initially admitted on February 02, for atrial fibrillation with rapid ventricular response. The patient underwent cardioversion yesterday, but afterwards, was very short of breath. The patient apparently may have aspirated, and also, may have had a touch of heart failure. Because of these 2 reasons, I moved the patient to the intensive care unit, for further monitoring and management. This morning, the patient is currently on 4 L of oxygen. She is a very wet congested cough. She's not receiving any IV fluids. She is receiving IV Lasix. Last night, she apparently had an episode of supraventricular tachycardia, followed by a sinus pause, and then bradycardia. Cardiology is aware. White count 10, hemoglobin 11.3, hematocrit 34.7, and platelet count 176,000. Sodium 131, potassium 3.4, chlorides 92, CO2 29, BUN 23, and creatinine 0.8. AST was 303. ALT was 418. Pro-calcitonin level was 0.59. N-terminal proBNP was 8770. Chest x-ray shows patchy bilateral infiltrates, which are improved on the right, and a bit more significant on the left. Objective - Vital Signs Vital signs: Vital Signs Temp 98.7 F 02/07/22 08:00 Pulse 69 02/07/22 10:00 Resp 28 H 02/07/22 10:00 BP 132/59 02/07/22 10:00 Pulse Ox 97 02/07/22 10:00 FiO2 Intake & Output 02/06/22 02/07/22 02/07/22 18:59 06:59 18:59 Intake Total 640 150 200 Output Total 600 600 Balance 40 -450 200 Intake: Intake, IV Titration 300 Amount Magnesium Sulfate-D5w Pmx 200 1 gm In Dextrose/Water 1 100ml.bag @ 100 mls/hr IVPB Q1H [facility] Rx#: [id number] Piperacillin-Tazobactam 3 100 .375 gm In Sodium Chloride 0.9% 100 ml @ 25 mls/hr IVPB Q12H [facility] Rx# :[id number] Oral 340 150 200 Output: Urine 600 600 Other: Voiding Method External Catheter External Catheter Toilet # Voids 1 1 # Bowel Movements 1 1 - Exam No acute distress, oriented 3. Patient is currently on 4 L. Saturations are 97%. Her cough is wet congested. HEENT examination is grossly unremarkable. Neck supple. Full range of motion. No adenopathy thyromegaly or neck vein distention. Cardiovascular examination reveals regular rhythm rate. S1-S2 normal. No S3 or S4. No discernible murmur noted. Heart rate 69 bpm. Lungs reveal scattered rhonchi. Minimal expiratory wheezes. Breath sounds equal bilaterally. The patient's cough is wet and congested sounding. Saturations are 97%. No crackles. Abdomen soft bowel sounds are heard. No masses or tenderness. Extremities are intact. No cyanosis clubbing or edema. Skin is without rash or lesion. Neurologic examination is brief but nonfocal. - Labs CBC & Chem 7: 02/07/22 05:40 02/07/22 05:40 Labs: Abnormal Lab Results - Last 24 Hours (Table) 02/06/22 02/06/22 02/07/22 Range/Units 11:31 11:55 05:40 Hgb 11.3 L (11.4-16.0) gm/dL Neutrophils # 8.3 H (1.3-7.7) k/uL Lymphocytes # 0.8 L (1.0-4.8) k/uL Sodium (137-145) mmol/L Potassium (3.5-5.1) mmol/L Chloride (98-107) mmol/L BUN (7-17) mg/dL Glucose (74-99) mg/dL POC Glucose (mg/dL) 133 H (70-110) mg/dL Calcium (8.4-10.2) mg/dL AST (14-36) U/L ALT (4-34) U/L Total Protein (6.3-8.2) g/dL Albumin (3.5-5.0) g/dL Procalcitonin 0.59 H (0.02-0.09) ng/mL 02/07/22 Range/Units 05:40 Hgb (11.4-16.0) gm/dL Neutrophils # (1.3-7.7) k/uL Lymphocytes # (1.0-4.8) k/uL Sodium 131 L (137-145) mmol/L Potassium 3.4 L (3.5-5.1) mmol/L Chloride 92 L (98-107) mmol/L BUN 23 H (7-17) mg/dL Glucose 130 H (74-99) mg/dL POC Glucose (mg/dL) (70-110) mg/dL Calcium 8.1 L (8.4-10.2) mg/dL AST 303 H (14-36) U/L ALT 418 H (4-34) U/L Total Protein 5.6 L (6.3-8.2) g/dL Albumin 3.3 L (3.5-5.0) g/dL Procalcitonin (0.02-0.09) ng/mL Assessment and Plan Assessment: Atrial fibrillation/RVR, with cardioversion, 02/06/2022. Shortness of breath, multifactorial, in part related to CHF, and possible aspiration pneumonia. History of chronic atrial fibrillation. History of hypertension. History of hyperlipidemia. History of rheumatoid arthritis. Previous history of cardiac In with pericardial window. History of osteoporosis. Previous history of cardioversions and electrophysiologic studies with ablation. Plan: Plan dated 02/06/2022. I was called by cardiology. I do appreciate the phone call. The patient was seen in phase I recovery. The patient should certainly go back to the intensive care unit. She short of breath, which likely relates to possible aspiration pneumonia and/or mild fluid overload/CHF. The patient was cardioverted with 200 J. She was back in normal sinus rhythm after only one cardioversion. She has no prior history of any lung issues. She is a lifelong nonsmoker. We will check a pro-calcitonin level. I've asked her morning labs and x-rays. Plan dated 02/07/2022. The patient is resting comfortably in the intensive care unit, room 266. I wrote for albuterol sulfate and ipratropium bromide breathing treatments 4 times a day and when necessary. They seem to be helping the patient. In addition, she is getting Lasix. Also, her pro-calcitonin level was a bit elevated, and yesterday, I added Zosyn. The patient will stay here in the ICU for another day at least. Additional recommendations and suggestions are forthcoming. Labs, x- rays, medications are reviewed. Prognosis is guarded. Time with Patient: Less than 30
[2022-02-07] MEDS: PIPERACILLIN-TAZOBACTAM 3.375 GM in SODIUM CHLORIDE 0.9% 100 ML IVPB SCH ×2 (11:59→23:43)
--- NOTE | 2022-02-07 15:24 | P.PN ---
Subjective Progress Note Date: 02/07/22 Principal diagnosis: Atrial fibrillation with RVR/ plans for cardioversion 81-year-old lady with past medical history significant for atrial fibrillation, hyperlipidemia, hypertension who presented to the ER because of palpitations. She was all right yesterday night when she went to bed at which time her apple watch notified of her heart rate being in the 170s. At that time patient was also complaining of palpitations. Patient also complaining of dizziness. Patient was brought to the ER of [facility]. Initial EKG showed SVT versus atrial tachycardia with heart rate 170s. Patient was started on IV Cardizem drip and admitted to hospitalist service. 02/06/2022 Patient is seen and evaluated in room at bedside; remains in atrial fibrillation with heart rate ranging between 140s to 160s Vital signs reveal temperature of 97.9, pulse 160, respiration 24 and blood pressure 127/71 - Patient remains on beta blockers and calcium channel blockers; was intolerant of amiodarone which was discontinued Cardiology planning to take patient for cardioversion given uncontrolled heart rate and patient being symptomatic 02/07/2022 Patient is seen and evaluated in ICU; patient underwent cardioversion yesterday after which went into acute respiratory distress and was transferred to ICU for possible aspiration pneumonia/fluid overload -- Patient has an episode of SVT last night which is followed by sinus positive and bradycardia; cardiology is on board and recommending to discontinue Card izem; and Coreg patient is placed on metoprolol succinate 50 mg twice a day; amlodipine and Dyazide at placed on hold due to softer blood pressures White count 10, hemoglobin 11.3, hematocrit 34.7, and platelet count 176,000. Sodium 131, potassium 3.4, chlorides 92, CO2 29, BUN 23, and creatinine 0.8. AST was 303. ALT was 418. Pro-calcitonin level was 0.59. N-terminal proBNP was 8770. Chest x-ray shows patchy bilateral infiltrates, which are improved on the right, and a bit more significant on the left. Patient has been placed on bronchodilator nebulizer treatments; 4 times a day and when necessary; has been receiving and has been started on IV Zosyn given infiltrates on chest x-ray and pro-calcitonin trending up Objective - Vital Signs Vital signs: Vital Signs Temp 98.7 F 02/07/22 08:00 Pulse 68 02/07/22 09:17 Resp 28 H 02/07/22 09:00 BP 132/76 02/07/22 09:00 Pulse Ox 96 02/07/22 09:00 FiO2 Intake & Output 02/06/22 02/07/22 02/07/22 18:59 06:59 18:59 Intake Total 640 150 200 Output Total 600 600 Balance 40 -450 200 Intake: Intake, IV Titration 300 Amount Magnesium Sulfate-D5w Pmx 200 1 gm In Dextrose/Water 1 100ml.bag @ 100 mls/hr IVPB Q1H [facility] Rx#: [id number] Piperacillin-Tazobactam 3 100 .375 gm In Sodium Chloride 0.9% 100 ml @ 25 mls/hr IVPB Q12H [facility] Rx# :[id number] Oral 340 150 200 Output: Urine 600 600 Other: Voiding Method External Catheter External Catheter # Voids 1 # Bowel Movements 1 - Exam GENERAL: The patient is alert and oriented x3, not in any acute distress. Well developed, well nourished. HEENT: Pupils are round and equally reacting to light. EOMI. No scleral icterus. No conjunctival pallor. Normocephalic, atraumatic. No pharyngeal erythema. No thyromegaly. CARDIOVASCULAR: S1 and S2 present. No murmurs, rubs, or gallops. Tachycardia PULMONARY: Chest is clear to auscultation, no wheezing or crackles. ABDOMEN: Soft, nontender, nondistended, normoactive bowel sounds. No palpable organomegaly. MUSCULOSKELETAL: No joint swelling or deformity. EXTREMITIES: No cyanosis, clubbing, or pedal edema. NEUROLOGICAL: Gross neurological examination did not reveal any focal deficits. SKIN: No rashes. - Labs CBC & Chem 7: 02/07/22 05:40 02/07/22 05:40 Labs: Abnormal Lab Results - Last 24 Hours (Table) 02/06/22 02/06/22 02/07/22 Range/Units 11:31 11:55 05:40 Hgb 11.3 L (11.4-16.0) gm/dL Neutrophils # 8.3 H (1.3-7.7) k/uL Lymphocytes # 0.8 L (1.0-4.8) k/uL Sodium (137-145) mmol/L Potassium (3.5-5.1) mmol/L Chloride (98-107) mmol/L BUN (7-17) mg/dL Glucose (74-99) mg/dL POC Glucose (mg/dL) 133 H (70-110) mg/dL Calcium (8.4-10.2) mg/dL AST (14-36) U/L ALT (4-34) U/L Total Protein (6.3-8.2) g/dL Albumin (3.5-5.0) g/dL Procalcitonin 0.59 H (0.02-0.09) ng/mL 02/07/22 Range/Units 05:40 Hgb (11.4-16.0) gm/dL Neutrophils # (1.3-7.7) k/uL Lymphocytes # (1.0-4.8) k/uL Sodium 131 L (137-145) mmol/L Potassium 3.4 L (3.5-5.1) mmol/L Chloride 92 L (98-107) mmol/L BUN 23 H (7-17) mg/dL Glucose 130 H (74-99) mg/dL POC Glucose (mg/dL) (70-110) mg/dL Calcium 8.1 L (8.4-10.2) mg/dL AST 303 H (14-36) U/L ALT 418 H (4-34) U/L Total Protein 5.6 L (6.3-8.2) g/dL Albumin 3.3 L (3.5-5.0) g/dL Procalcitonin (0.02-0.09) ng/mL Assessment and Plan Assessment: SVT with short RP vs atrial tachycardia Paroxysmal atrial fibrillation status post cardioversion in 09/2021 and Ablation on 10/22/2021, on Eliquis Hypertension GERD Dyslipidemia History of osteoporosis Unsteady gait Plan; Continue telemetry monitoring. Monitor electrolytes. Monitor renal functions Continue Toprol 50 mg twice a day Continue eliquis Neurology evaluated The patient and ordered vitamin B12, folate, HbA1c, orthostatic vitals. They recommended imaging such as CT or MRI Brain but the patient refused. From the patient's history and examination patient does not seem to have a stroke. Neurology stated that If the patient continues to have lightheadedness/dizziness even though the atrial fibrillations/SVT vs atrial tachycrdia then recommend patient to be evaluated by ENT as outpatient with consideration of vestibular rehab therapy. Follow-up on PT and OT recommendations Follow up in cardiology recommendations
[2022-02-08] MEDS: guaiFENesin SYRUP 100MG/5ML 200 MG/10 ML CUP PO PRN (06:17)
[2022-02-08 07:04] LABS: HCT 33.6 % (34.0-46.0); MCH 29.9 pg (25.0-35.0); MCHC 32.7 g/dL (31.0-37.0); MCV 91.7 fL (80.0-100.0); Mean Platelet Volume 7.8; Platelet Count 162 k/uL (150-450); RBC 3.67 m/uL (3.80-5.40); RDW 14.3 % (11.5-15.5); WBC 7.8 k/uL (3.8-10.6)
[2022-02-08 07:22] LABS: African American GFR (CKD) >90 (>60 ml/min/1.73 sqM); Anion Gap 8 mmol/L; Blood Urea Nitrogen 14 mg/dL (7-17); Calcium 7.9 mg/dL (8.4-10.2); Carbon Dioxide 32 mmol/L (22-30); Chloride 93 mmol/L (98-107); Glucose 117 mg/dL (74-99); Non-African American GFR(CKD) 82 (>60 ml/min/1.73 sqM); Potassium 3.2 mmol/L (3.5-5.1); Sodium 133 mmol/L (137-145)
--- NOTE | 2022-02-08 07:31 | XR ---
EXAMINATION TYPE: XR chest 1V portable DATE OF EXAM: 02/08/2022 Comparison: 02/07/2022 Clinical History: 81-year-old female shortness of breath, CHF v PNA Findings: Heart mildly enlarged. Diffuse interstitial opacities. Calcified granuloma left base. Peripheral inte rstitial densities appear to be increasing. No sizable pleural effusion on the frontal view. Impression: Mild cardiomegaly and some increasing diffuse interstitial opacities especially along the periphery o f the lungs. Atypical pneumonia and mild interstitial pulmonary edema are both considerations.
[2022-02-08] MEDS ORDERED: Potassium Replacement Protocol 1 EACH MISC MISCELLANE PRN (07:32)
[2022-02-08] MEDS: POTASSIUM CHLORIDE ER 20 MEQ TAB.ER PO SCH ×2 (07:41→08:52)
[2022-02-08] MEDS: IPRATROPIUM-ALBUTEROL 3 ML NEB INHALATION SCH ×4 (07:54→19:52)
--- NOTE | 2022-02-08 08:27 | P.PN ---
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 She has been complaining of progressive dyspnea and fatigue and there is a possibility of aspiration pneumonia. She continues to feel fatigued this morning, she has mild dyspnea. She has been coughing at times yellow sputum. She denies any chest discomfort, dizziness or palpitations. She continues to be in sinus mechanism. Her blood pressure is stable. Medications: Diltiazem 60 mg 3 times a day, metoprolol 100 mg twice a day, Lasix 20 mg IV every 12 hours, Eliquis 2.5 mg twice a day PHYSICAL EXAMINATION: Blood pressure 155/80 heart rate 60 LUNGS: Scattered rhonchi HEART: Regular rate and rhythm, S1, S2. No S3. systolic murmur at the base ABDOMEN: Soft, nontender, no organomegaly EXTREMETIES: No edema LAB: Potassium 3.2, BUN 14, creatinine 0.68, hemoglobin 11. IMPRESSION: 1. Atrial fibrillation, post cardioversion, maintaining sinus mechanism 2. Progressive dyspnea with evidence of CHF and possible pneumonia 3. 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 History of hypertension PLAN: 1. Change to oral diuretics 2. Start Entresto and Farxiga 3. Decrease calcium channel Cat 4. Increase physical activity 5. Continue anticoagulation Objective - Vital Signs Vital signs: Vital Signs Temp 98.4 F 02/08/22 04:00 Pulse 66 02/08/22 08:05 Resp 18 02/08/22 08:05 BP 155/85 02/08/22 07:00 Pulse Ox 94 L 02/08/22 07:56 FiO2 Intake & Output 02/07/22 02/08/22 02/08/22 18:59 06:59 18:59 Intake Total 620 540 Output Total 1000 1600 Balance -380 -1060 Weight 68.2 kg Intake: Intake, IV Titration 100 Amount Piperacillin-Tazobactam 3 100 .375 gm In Sodium Chloride 0.9% 100 ml @ 25 mls/hr IVPB Q12H [facility] Rx# :[id number] Oral 520 540 Output: Urine 1000 1600 Other: Voiding Method Toilet Toilet # Voids 1 # Bowel Movements 1 - Labs CBC & Chem 7: 02/08/22 06:35 02/08/22 06:35 Labs: Abnormal Lab Results - Last 24 Hours (Table) 02/08/22 02/08/22 Range/Units 06:35 06:35 RBC 3.67 L (3.80-5.40) m/uL Hgb 11.0 L (11.4-16.0) gm/dL Hct 33.6 L (34.0-46.0) % Sodium 133 L (137-145) mmol/L Potassium 3.2 L (3.5-5.1) mmol/L Chloride 93 L (98-107) mmol/L Carbon Dioxide 32 H (22-30) mmol/L Glucose 117 H (74-99) mg/dL Calcium 7.9 L (8.4-10.2) mg/dL Microbiology - Last 24 Hours (Table) 02/07/22 11:30 Sputum Culture - Preliminary Sputum
[2022-02-08] MEDS: SACUBITRIL/VALSARTAN 24 MG-26 MG TABLET PO SCH ×2 (08:51→20:10)
[2022-02-08] MEDS: CYANOCOBALAMIN 500 MCG TAB PO SCH (08:52)
[2022-02-08] MEDS: FUROSEMIDE 40 MG TAB PO SCH ×2 (08:52→16:27)
[2022-02-08] MEDS: APIXABAN 2.5 MG TABLET PO SCH ×2 (08:52→20:10)
[2022-02-08] MEDS: METOPROLOL SUCCINATE (ER) 100 MG TAB.ER.24H PO SCH ×2 (08:52→20:10)
[2022-02-08] MEDS: DAPAGLIFLOZIN PROPANEDIOL 10 MG TABLET PO SCH (08:52)
[2022-02-08] MEDS: DILTIAZEM ORAL 30 MG TAB PO SCH ×3 (08:52→21:48)
--- NOTE | 2022-02-08 10:39 | P.PN ---
Subjective Progress Note Date: 02/08/22 This is an 81-year-old female who was initially seen in the emergency room on February 02, for rapid heart rate, and palpitations. She apparently presented with atrial fibrillation and RVR. Today, she underwent cardioversion with 200 J. She was converted after only one cardioversion. Unfortunately, she seems to be very short of breath, and, I was called by cardiology for possible placement into the intensive care unit. The patient was in phase I or recovery, and I went to go see her. She appears to possibly have aspirated as he was increased density in the right chest compared to the left, and, she may also have a touch of CHF. The BMP was elevated. The patient is a lifelong nonsmoker. The patient sees primarily her family doctor, and also cardiology. She does have a history of atrial fibrillation, gastroesophageal reflux disease, hyperlipidemia, hypertension, osteoarthritis, and rheumatoid arthritis. She also has a previous history of cardiac, now with a pericardial window. She also has a history of osteoporosis, and diverticular disease. PT INR and PTT are normal. The N-t erminal proBNP was 8770. The chest x-ray showed diffuse bilateral infiltrates, a bit more dense on the right side. I did spend nurse in phase I recovery to give her Lasix I also spoke to my charge nurse in the ICU. She will need a pro- calcitonin level, chest x-ray in the morning, and labs in the morning. Progress note dated 02/07/2022. 81-year-old female room 266. Yesterday, she was seen in phase I recovery. She was initially admitted on February 02, for atrial fibrillation with rapid ve ntricular response. The patient underwent cardioversion yesterday, but afterwards, was very short of breath. The patient apparently may have aspirated, and also, may have had a touch of heart failure. Because of these 2 reasons, I moved the patient to the intensive care unit, for further monitoring and management. This morning, the patient is currently on 4 L of oxygen. She is a very wet congested cough. She's not receiving any IV fluids. She is receiving IV Lasix. Last night, she apparently had an episode of supraventricular tachycardia, followed by a sinus pause, and then bradycardia. Cardiology is aware. White count 10, hemoglobin 11.3, hematocrit 34.7, and platelet count 176,000. Sodium 131, potassium 3.4, chlorides 92, CO2 29, BUN 23, and creatinine 0.8. AST was 303. ALT was 418. Pro-calcitonin level was 0.59. N-terminal proBNP was 8770. Chest x-ray shows patchy bilateral infiltrates, which are improved on the right, and a bit more significant on the left. ,022, the patient is being seen for a follow-up. This morning, she is on 3 L of oxygen by nasal cannula. The patient presented to us with A. fib RVR. The patient underwent cardioversion and currently she is in normal sinus rhythm. A chest x-ray from today is showing some cardiomegaly and some mild pulmonary vascular congestion. This is consistent with mild CHF as the patient has interstitial pulmonary changes bilaterally. No evidence of any airspace disease or consolidations or pleural effusions. Other the patient had a cardiac catheterization on 01/19/2022 and the patient was found to have normal coronaries. Her echocardiogram that was done on 12/28/2021 showed mild LV systolic dysfunction and ejection fraction was around 40-45%. The patient had severe mitral calcification and moderate degree of mitral regurgitation and moderate degree of mitral stenosis. Otherwise, no other acute abnormalities was identified. The blood work from today shows a white cell count of 7.8 and hemoglobin of 11 and a platelet count of 162. There BUN is at 14 with a creatinine of 0.6 and the sodium level is at 133 and a potassium level is at 3.2 which is being replaced for now. The pro-calcitonin level was slightly elevated at 0.59 at the time of admission and the patient's proBNP level was 8770. Normal coagulation profile. The patient otherwise is currently on DuoNeb nebulized treatments around the clock, IV Zosyn as an empiric antibiotic coverage, and terms of her cardiomyopathy, she is on Entresto 24/25 one tablet a day, Farxiga 10 mg by mouth daily, and Lasix 40 mg by mouth twice a day. The patient is on metoprolol 100 mg XL 1 tablet a day and oral Cardizem 30 mg by mouth 3 times a day. She is on long-term anticoagulation with Eliquis Objective - Vital Signs Vital signs: Vital Signs Temp 97.8 F 02/08/22 08:00 Pulse 60 02/08/22 10:00 Resp 28 H 02/08/22 10:00 BP 140/78 02/08/22 10:00 Pulse Ox 96 02/08/22 10:00 FiO2 Intake & Output 02/07/22 02/08/22 02/08/22 18:59 06:59 18:59 Intake Total 620 540 240 Output Total 1000 1600 800 Balance -380 -1060 -560 Weight 68.2 kg Intake: Intake, IV Titration 100 Amount Piperacillin-Tazobactam 3 100 .375 gm In Sodium Chloride 0.9% 100 ml @ 25 mls/hr IVPB Q12H [facility] Rx# :[id number] Oral 520 540 240 Output: Urine 1000 1600 800 Other: Voiding Method Toilet Toilet Toilet # Voids 1 # Bowel Movements 1 - Exam No acute distress, oriented 3. Patient is currently on 3 L. Saturations are 97%. HEENT examination is grossly unremarkable. Neck supple. Full range of motion. No adenopathy thyromegaly or neck vein distention. Cardiovascular examination reveals regular rhythm rate. S1-S2 normal. No S3 or S4. No discernible murmur noted. Heart rate 69 bpm. Lungs reveal scattered rhonchi. Minimal expiratory wheezes. Breath sounds equal bilaterally. The patient's cough is wet and congested sounding. Abdomen soft bowel sounds are heard. No masses or tenderness. Extremities are intact. No cyanosis clubbing or edema. Skin is without rash or lesion. Neurologic examination is brief but nonfocal. - Labs CBC & Chem 7: 02/08/22 06:35 02/08/22 06:35 Labs: Abnormal Lab Results - Last 24 Hours (Table) 02/08/22 02/08/22 Range/Units 06:35 06:35 RBC 3.67 L (3.80-5.40) m/uL Hgb 11.0 L (11.4-16.0) gm/dL Hct 33.6 L (34.0-46.0) % Sodium 133 L (137-145) mmol/L Potassium 3.2 L (3.5-5.1) mmol/L Chloride 93 L (98-107) mmol/L Carbon Dioxide 32 H (22-30) mmol/L Glucose 117 H (74-99) mg/dL Calcium 7.9 L (8.4-10.2) mg/dL Microbiology - Last 24 Hours (Table) 02/07/22 11:30 Gram Stain - Preliminary Sputum Sputum Culture - Preliminary Assessment and Plan Plan: Atrial fibrillation/RVR, with cardioversion, 02/06/2022. The patient's current cardiac rhythm is sinus and the patient is well-controlled with a combination of metoprolol and Cardizem and the patient is also on anti-coagulation with liquids Symptoms of an acute bronchitis with reactive bronchospasm wheezing. No clear indication for pneumonia at this point in time. The pro calcitonin level has been slightly elevated. Patient is a lifetime nonsmoker. No history of any bronchial asthma. No history of aspiration of the patient's swallow evaluation came back within normal limits. History of chronic atrial fibrillation. The patient received previous cardiac ablation and the patient is having paroxysmal atrial fibrillation current rhythm is sinus post-cardioversion. History of hypertension. History of hyperlipidemia. History of rheumatoid arthritis. Previous history of cardiac In with pericardial window and this was done post cardiac ablation and iatrogenic pericardial effusion requiring a window. History of osteoporosis. Previous history of cardioversions and electrophysiologic studies with ablation. Plan: Currently on 3 L of oxygen by nasal cannula Start The patient IV Solu-Medrol 40 mg every 6 hours Continue the DuoNeb nebulized treatments around the clock Continue IV Zosyn Recheck the COVID 19 by PCR Sputum sample will be sent today Continue using incentive spirometer Cardiac medications are all appropriate and the patient is still maintained on diuretics We'll continue to follow make further recommendations based on her progress. Repeat chest x-ray in the morning.
--- NOTE | 2022-02-08 10:45 | P.PN ---
Subjective 81-year-old lady with past medical history significant for atrial fibrillation, hyperlipidemia, hypertension who presented to the ER because of palpitations. She was all right yesterday night when she went to bed at which time her apple watch notified of her heart rate being in the 170s. At that time patient was also complaining of palpitations. Patient also complaining of dizziness. Patient was brought to the ER of [facility]. Initial EKG showed SVT versus atrial tachycardia with heart rate 170s. Patient was started on IV Card izem drip and admitted to hospitalist service. 02/06/2022 Patient is seen and evaluated in room at bedside; remains in atrial fibrillation with heart rate ranging between 140s to 160s Vital signs reveal temperature of 97.9, pulse 160, respiration 24 and blood pressure 127/71 - Patient remains on beta blockers and calcium channel blockers; was intolerant of amiodarone which was discontinued Cardiology planning to take patient for cardioversion given uncontrolled heart rate and patient being symptomatic 02/07/2022 Patient is seen and evaluated in ICU; patient underwent cardioversion yesterday after which went into acute respiratory distress and was transferred to ICU for possible aspiration pneumonia/fluid overload -- Patient has an episode of SVT last night which is followed by sinus positive and bradycardia; cardiology is on board and recommending to discontinue Cardizem; and Coreg patient is placed on metoprolol succinate 50 mg twice a day; amlodipine and Dyazide at placed on hold due to softer blood pressures White count 10, hemoglobin 11.3, hematocrit 34.7, and platelet count 176,000. Sodium 131, potassium 3.4, chlorides 92, CO2 29, BUN 23, and creatinine 0.8. AST was 303. ALT was 418. Pro-calcitonin level was 0.59. N-terminal proBNP was 8770. Chest x-ray shows patchy bilateral infiltrates, which are improved on the right, and a bit more significant on the left. Patient has been placed on bronchodilator nebulizer treatments; 4 times a day and when necessary; has been receiving and has been started on IV Zosyn given infiltrates on chest x-ray and pro-calcitonin trending up 02/08/2022 This is a pleasant 81 old female who was admitted with supraventricular tachy cardia versus atrial tachycardia and in view of her chronic history of atrial fibrillation she underwent cardioversion ablation on 02/06. Patient currently heart rate is better controlled, actually she was slightly bradycardic and Cardizem dose was lowered to 30 mg 3 times a day. Also patient kept on metoprolol 100 mg. IV Lasix switched to oral dose of 40 mg twice daily and started on entresto Today she still feeling short of breath and tachypnea. She is not on home oxygen and currently she wears 4 L/m. She still have cough with little phlegm. She says she has chronic and steady gait. She's been evaluated by neurologist patient had low appetite but no diarrhea She remains on Zosyn and she still tachypnea. Chest x-ray showing bilateral atypical pneumonia versus CHF. ProBNP and pro-calcitonin both are elevated 8770 and 0.59 respectively. Patient is on home dose of leg was 2.5 mg. We will check a swallow evaluation and bladder scan. Objective - Vital Signs Vital signs: Vital Signs Temp 97.8 F 02/08/22 08:00 Pulse 66 02/08/22 09:00 Resp 28 H 02/08/22 09:00 BP 141/78 02/08/22 09:00 Pulse Ox 96 02/08/22 09:00 FiO2 Intake & Output 02/07/22 02/08/22 02/08/22 18:59 06:59 18:59 Intake Total 620 540 Output Total 1000 1600 Balance -380 -1060 Weight 68.2 kg Intake: Intake, IV Titration 100 Amount Piperacillin-Tazobactam 3 100 .375 gm In Sodium Chloride 0.9% 100 ml @ 25 mls/hr IVPB Q12H [facility] Rx# :[id number] Oral 520 540 Output: Urine 1000 1600 Other: Voiding Method Toilet Toilet Toilet # Voids 1 # Bowel Movements 1 - Exam GENERAL: The patient is alert and oriented x3, not in any acute distress. Well developed, well nourished. HEENT: Pupils are round and equally reacting to light. EOMI. No scleral icterus. No conjunctival pallor. Normocephalic, atraumatic. No pharyngeal erythema. No thyromegaly. CARDIOVASCULAR: S1 and S2 present. No murmurs, rubs, or gallops. PULMONARY: Chest is clear to auscultation, no wheezing or crackles. ABDOMEN: Soft, nontender, nondistended, normoactive bowel sounds. No palpable organomegaly. MUSCULOSKELETAL: No joint swelling or deformity. EXTREMITIES: No cyanosis, clubbing, or pedal edema. NEUROLOGICAL: Gross neurological examination did not reveal any focal deficits. SKIN: No rashes. no petechiae. - Labs CBC & Chem 7: 02/08/22 06:35 02/08/22 06:35 Labs: Abnormal Lab Results - Last 24 Hours (Table) 02/08/22 02/08/22 Range/Units 06:35 06:35 RBC 3.67 L (3.80-5.40) m/uL Hgb 11.0 L (11.4-16.0) gm/dL Hct 33.6 L (34.0-46.0) % Sodium 133 L (137-145) mmol/L Potassium 3.2 L (3.5-5.1) mmol/L Chloride 93 L (98-107) mmol/L Carbon Dioxide 32 H (22-30) mmol/L Glucose 117 H (74-99) mg/dL Calcium 7.9 L (8.4-10.2) mg/dL Microbiology - Last 24 Hours (Table) 02/07/22 11:30 Gram Stain - Preliminary Sputum Sputum Culture - Preliminary Assessment and Plan Assessment: SVT with short RP vs atrial tachycardia Paroxysmal atrial fibrillation status post cardioversion on 02/06, on Eliquis Elevated liver enzymes Possible healthcare associated pneumonia Borderline low vitamin B12 Hypertension GERD Dyslipidemia History of osteoporosis Unsteady gait Plan: this is a pleasant 81-year-old female who presents with SVT/A. fib and elevated liver enzymes Continue with Cardizem 30 mg, metoprolol. Continue with the liquids Pharmacovigilance Scientist on the case Continue with antibiotics Zosyn with pulmonary team on the case as well. Continue with vitamin B12 replacement therapy Neurology evaluated The patient and ordered vitamin B12, folate, HbA1c, ortho static vitals. They recommended imaging such as CT or MRI Brain but the patient refused. Labs and medication were reviewed.. Continue same treatment. Continue with symptomatic treatment. Resume home medication. Monitor lytes and vitals. DVT and GI prophylaxis. Further recommendations as per clinical course of the patient DVT prophylaxis: eliquis GI Prophylaxis: Pepcid PT/OT: Pending Prognosis is guarded
[2022-02-08] MEDS: methylPREDNISolone SOD SUCCI 40 MG/ML 1 ML VIAL IV SCH ×2 (11:02→18:14)
[2022-02-08] MEDS: PIPERACILLIN-TAZOBACTAM 3.375 GM in SODIUM CHLORIDE 0.9% 100 ML IVPB SCH (11:41)
--- NOTE | 2022-02-08 12:18 | CDI ---
Documentation Clarification Form Date: 02/08/2022 12:01:05 PM From: Naa Jackson RN CCDS Admit Date: 02/02/2022 06:30:00 AM Patient Name: Miya Colon Visit Number: [id number] Discharge Date: ATTENTION: The Clinical Documentation Specialists (CDI) and [facility] Coding Staff appreciate your assistance in clarifying documentation. Please respond to the clarification below the line at the bottom and electronically sign. The CDI & [facility] Coding staff will review the response and follow-up if needed. Please note: Queries are made part of the Legal Health Record. If you have any questions, please contact the author of this message via ITS. Dr. Royce Alexander Your patient has the documented diagnosis of unspecified CHF 02/08, Cardiology progress note. Additional information regarding the acuity of CHF is requested. History/Risk Factors: 81-year-old female presents to the ED with heart rate in the 170s with palpitations and dizziness. Medical History: HTN, HLD and Atrial Fibrillation. Clinical Indicators: VS/Pulse OX: 02/06 B/P 108/72 ; HR 161; Temp 97.8 F Oral; RR 24; SpO2 90% 6L nasal cannula BNP: 02/06 8770 Echocardiogram Results: 12/28/21 Mild LV systolic dysfunction. EF 40-45%. Severe mitral Calcification with moderate mitral regurgitation and moderate mitral stenosis. Mild tricuspid regurgitation. Chest X Ray: 02/06 Mild cardiomegaly and diffuse interstitial opacity. Correlate for possible CHF with pulmonary vascular congestion or atypical pneumonias. Developing patchy pulmonary edema vs infiltrate at the periphery of the right mid lower lung . Treatment: 02/03 Coreg 12.5mg PO x 1 (not given); 02/03 -02/04 Coreg 25mg PO BID; 02/06 Lasix 20mg IV x 1; 02/06 02/07 Lasix 20mg IV Q12H; 02/08 Lasix 40mg PO BID; 02/04 02/05 Toprol Xl 50mg BID; 02/05 Toprol Xl 25mg PO x 1; 02/05 Toprol Xl 75mg PO BID one does administered d/cd 02/05; 02/06 Toprol Xl 75mg PO x 1; 02/06 Toprol Xl 100mg PO BID. In your professional opinion, can you please clarify the acuity of CHF if known? [ XX] Acute on Chronic Systolic Heart Failure (reduced EF) [ ] Other, please specify [ ] Unable to determine (Template Last Revised: June 2020) THOMPSOND
--- NOTE | 2022-02-08 12:47 | CDI ---
Documentation Clarification Form Date: 02/08/2022 12:19:11 PM From: Naa Jackson Admit Date: 02/02/2022 06:30:00 AM Patient Name: Miya Colon Visit Number: [id number] Discharge Date: ATTENTION: The Clinical Documentation Specialists (CDI) and [facility] Coding Staff appreciate your assistance in clarifying documentation. Please respond to the clarification below the line at the bottom and electronically sign. The CDI & [facility] Coding staff will review the response and follow-up if needed. Please note: Queries are made part of the Legal Health Record. If you have any questions, please contact the author of this message via ITS. Dr. Kirk E Sheet Your patient has Respiratory distress, 02/08, Medicine progress note. Based on this information and the findings below, is there an additional diagnosis that is clinically appropriate for this patient? History/Risk Factors: History/Risk Factors: 81-year-old female presents to the ED with heart rate in the 170s with palpitations and dizziness. Medical History: HTN, HLD and Atrial Fibrillation. Clinical Indicators: Chest X Ray: 02/06 Mild cardiomegaly and diffuse interstitial opacity. Correlate for possible CHF with pulmonary vascular congestion or atypical pneumonias. Developing patchy pulmonary edema vs infiltrate at the periphery of the right mid lower lung . Vital signs: 02/02 B/P 105/73; HR 170; Temp 97.5F Oral; RR 24; SpO2 99% ra 02/05 B/P 126/82; HR 126; Temp 99.6F Oral: RR 18; SpO2 89% 4L nasal cannula 08:00 02/06 B/P 108/72; HR 161; Temp 97.8F Oral: RR 24; SpO2 90% 6L nasal cannula 15:06 02/06 B/P 112/75; HR 67; RR 26; SpO2 98% 6L High Flow oxygen 12:06 02/07 B/P 127/80; HR 61; Temp 98F Oral: RR 28; SpO2 97% 4L High Flow oxygen 07:56 02/08 B/P 155/85: HR 67; Temp 97.8F Oral; RR 127; SpO2 96% 3L High Flow oxygen 02/06 VSS: Respiratory effort Short of breath labored; Shallow and Tachypnea. Lung/Breathing assessment: 02/06, Medicine progress note Chest is clear to auscultation, no wheezing or crackles. Treatment: Breathing tx: 02/07 Albuterol/Ipratropium 3ml Inhalation one dose given; Albuterol Ipratropium 3ml Inhalation QID [facility] and Q2H PRN. Continuous oxygen from 02/05 to current 4L nasal cannula up to 6L high flow oxygen. Is there an additional diagnosis that is clinically appropriate for this patient? [ ] Acute Hypoxic Respiratory Failure (pO2 <60 mm Hg or SpO2 <91% on room air) [ ] Chronic Respiratory Failure [ ] Other Diagnosis, please specify [ ] Unable to determine (Template Last Revised: July 2020) mild acute hypoxic resp failure MTDD
--- NOTE | 2022-02-08 13:07 | CDI ---
Documentation Clarification Form Date: 02/08/2022 12:48:56 PM From: Naa Jackson RN CCDS Admit Date: 02/02/2022 06:30:00 AM Patient Name: Miya Colon Visit Number: [id number] Discharge Date: ATTENTION: The Clinical Documentation Specialists (CDI) and [facility] Coding Staff appreciate your assistance in clarifying documentation. Please respond to the clarification below the line at the bottom and electronically sign. The CDI & [facility] Coding staff will review the response and follow-up if needed. Please note: Queries are made part of the Legal Health Record. If you have any questions, please contact the author of this message via ITS. Dr. Reagan [facility] pneumonia is documented 02/08, Medicine progress note. Additional clarification regarding the type of pneumonia is requested. History/Risk Factors: History/Risk Factors: 81-year-old female presents to the ED with heart rate in the 170s with palpitations and dizziness. Medical History: HTN, HLD and Atrial Fibrillation. Clinical Indicators: WBC 91/8: 10.0; Neutrophils 8.3. Procalcitonin 0: 0.59 Chest X Ray: 02/06 Mild cardiomegaly and diffuse interstitial opacity. Correlate for possible CHF with pulmonary vascular congestion or atypical pneumonias. Developing patchy pulmonary edema vs infiltrate at the periphery of the right mid lower lung . Medicine Progress note 02/07: Patient is seen and evaluated in ICU; patient underwent cardioversion yesterday after which went into acute respiratory distress and was transferred to ICU for possible aspiration pneumonia/fluid overload. Lung/Breathing assessment 02/08, Pulmonary progress note: Lungs reveal scattered rhonchi. Minimal expiratory wheezes. Breath sounds equal bilaterally. The patients cough is wet and congested sounding. Pulmonary progress note 02/08: The patient otherwise is currently on DuoNeb nebulized treatments ATC, IV Zosyn as an empiric antibiotic coverage. Treatment: Antibiotics: 02/06 Zosyn IVPB Q12H. Continuous oxygen from 02/05 to current 4L nasal cannula up to 6L high flow oxygen. Breathing Tx: 02/07 Albuterol/Ipratropium 3ml Inhalation one dose given; Albuterol Ipratropium 3ml Inhalation QID [facility] and Q2H PRN. Please clarify the pneumonia, if known: [ ] Aspiration Pneumonia, Due to food or vomitus [ ] Gram Negative Bacterial Pneumonia [ ] Acute bronchitis, Pneumonia ruled out. [ ] Other bacteria (please specify) [ ] Other, please specify [ ] Unable to determine (Template Last Revised: July 2020) Gram Negative Bacterial Pneumonia MTDD
[2022-02-08] MEDS: BENZOCAINE/MENTHOL LOZENG 1 EACH LOZENGE MUCOUS MEM PRN (15:16)
[2022-02-08] MEDS: guaiFENesin-DM 100-10MG/5ML 10 ML CUP PO SCH ×2 (16:27→22:15)
[2022-02-08] MEDS ORDERED: POTASSIUM CHLORIDE ER 20 MEQ TAB.ER PO SCH (17:00)
[2022-02-08] MEDS: FAMOTIDINE 20 MG/2 ML VIAL IV SCH (20:10)
[2022-02-09] MEDS: PIPERACILLIN-TAZOBACTAM 3.375 GM in SODIUM CHLORIDE 0.9% 100 ML IVPB SCH ×3 (00:01→23:54)
[2022-02-09] MEDS: methylPREDNISolone SOD SUCCI 40 MG/ML 1 ML VIAL IV SCH ×5 (00:01→23:54)
[2022-02-09 06:50] LABS: Basophils % (A) 0 %; Eosinophils # (A) 0.1 k/uL (0-0.7); Eosinophils % (A) 1 %; HCT 39.2 % (34.0-46.0); HGB 12.6 gm/dL (11.4-16.0); Lymphocytes # (A) 0.5 k/uL (1.0-4.8); Lymphocytes % (A) 6 %; MCH 29.2 pg (25.0-35.0); MCV 91.2 fL (80.0-100.0); Mean Platelet Volume 7.5; Monocytes # (A) 0.3 k/uL (0-1.0); Monocytes % (A) 4 %; Neutrophils # (A) 8.1 k/uL (1.3-7.7); Neutrophils % (A) 90 %; Platelet Count 248 k/uL (150-450)
[2022-02-09 07:01] LABS: ALT 235 U/L (4-34); AST 79 U/L (14-36); African American GFR (CKD) >90 (>60 ml/min/1.73 sqM); Albumin 3.3 g/dL (3.5-5.0); Alkaline Phosphatase 96 U/L (38-126); Anion Gap 9 mmol/L; Bilirubin, Delta 0.4 mg/dL (0.0-0.2); Bilirubin,Unconjugated 0.8 mg/dL (0.0-1.1); Blood Urea Nitrogen 15 mg/dL (7-17); Calcium 8.2 mg/dL (8.4-10.2); Carbon Dioxide 31 mmol/L (22-30); Chloride 95 mmol/L (98-107); Glucose 159 mg/dL (74-99); Non-African American GFR(CKD) 86 (>60 ml/min/1.73 sqM); Potassium 3.4 mmol/L (3.5-5.1); Sodium 135 mmol/L (137-145); Total Bilirubin 1.2 mg/dL (0.2-1.3); Total Protein 5.6 g/dL (6.3-8.2)
[2022-02-09] MEDS: METOPROLOL SUCCINATE (ER) 100 MG TAB.ER.24H PO SCH ×2 (07:02→21:19)
[2022-02-09] MEDS: IPRATROPIUM-ALBUTEROL 3 ML NEB INHALATION SCH ×4 (07:31→19:57)
--- NOTE | 2022-02-09 07:53 | XR ---
EXAMINATION TYPE: XR chest 1V portable DATE OF EXAM: 02/09/2022 5:31 AM COMPARISON: Chest radiographs from 02/09/2020 TECHNIQUE: XR chest 1V portable Portable AP radiograph of the chest. CLINICAL INDICATION:Female, 81 years old with history of sob; FINDINGS: Lungs/Pleura: Right pleural effusion with loculations. There is diffuse increased interstitial opacit ies. Pulmonary vascularity: Unremarkable. Heart/mediastinum: Cardiomediastinal silhouette is partially obscured due to overlying and adjacent o pacities. Musculoskeletal: No acute osseous pathology. IMPRESSION: Loculated right pleural effusion with associated increased interstitial lung markings not significant ly changed from prior.
--- NOTE | 2022-02-09 08:10 | P.PN ---
Subjective Progress Note Date: 02/09/22 PROGRESS NOTE The patient is an 81-year-old female with history of atrial fibrillation, mild to moderate nonischemic cardiomyopathy who presented with atrial fibrillation and rapid ventricle response, underwent cardioversion with baptism of sinus mechanism on February 06. She has been complaining of progressive dyspnea and fatigue and there is a possibility of aspiration pneumonia. She continues to feel fatigued this morning, she has mild dyspnea. She has been coughing at times yellow sputum. She denies any chest discomfort, dizziness or palpitations. She continues to be in sinus mechanism. Her blood pressure is stable. February 09: The patient is back in atrial tachycardia with episodes of rapid ventricle response here at she denies any chest discomfort, she continues to be dyspneic. She denies any dizziness, she feels the palpitations at times. Her cough is stable. She denies any nausea or vomiting. Her blood pressure is stable. Medications: Diltiazem 30 mg 3 times a day, metoprolol 100 mg twice a day, Lasix 20 mg po every 12 hours, Eliquis 2.5 mg twice a day, Farxiga 10 mg qd, Entresto PHYSICAL EXAMINATION: Blood pressure 139/60, 120 LUNGS: Scattered rhonchi, decreased breath sounds at the right base HEART: Irregular rate and rhythm, S1, S2. No S3. systolic murmur at the base ABDOMEN: Soft, nontender, no organomegaly EXTREMETIES: No edema LAB: Potassium 3.4, BUN 15, creatinine 0.60, hemoglobin 12.6. IMPRESSION: 1. Atrial fibrillation, post cardioversion, back and what appears to be atrial tachycardia 2. Progressive dyspnea with evidence of CHF and possible pneumonia 3. Mild to moderate nonischemic cardiomyopathy 4. History of hypertension PLAN: 1. Increase Cardizem to 60 mg 3 times a day 2. Replace potassium 3. Probable computed tomography scan of the chest to rule out right effusion versus atelectasis 4. Depending on her progress further recommendations will be made regarding the need to undergo repeat ablation, of note that the patient had 2 ablations done in the past. 5. I will discuss her case with Dr. Narvaez her primary rn icu regarding the arrhythmia Objective - Vital Signs Vital signs: Vital Signs Temp 98.1 F 02/09/22 04:00 Pulse 55 L 02/09/22 06:00 Resp 14 02/09/22 06:00 BP 139/68 02/09/22 06:00 Pulse Ox 96 02/09/22 07:39 FiO2 Intake & Output 02/08/22 02/09/22 02/09/22 18:59 06:59 18:59 Intake Total 460 100 Output Total 2600 1600 Balance -2140 -1500 Weight 67.6 kg Intake: Intake, IV Titration 100 100 Amount Piperacillin-Tazobactam 3 100 100 .375 gm In Sodium Chloride 0.9% 100 ml @ 25 mls/hr IVPB Q12H [facility] Rx# :[id number] Oral 360 0 Output: Urine 2600 1600 Other: Voiding Method Toilet Toilet - Labs CBC & Chem 7: 02/09/22 06:33 02/09/22 06:33 Labs: Abnormal Lab Results - Last 24 Hours (Table) 02/09/22 02/09/22 Range/Units 06:33 06:33 Neutrophils # 8.1 H (1.3-7.7) k/uL Lymphocytes # 0.5 L (1.0-4.8) k/uL Sodium 135 L (137-145) mmol/L Potassium 3.4 L (3.5-5.1) mmol/L Chloride 95 L (98-107) mmol/L Carbon Dioxide 31 H (22-30) mmol/L Glucose 159 H (74-99) mg/dL Calcium 8.2 L (8.4-10.2) mg/dL Delta Bilirubin 0.4 H (0.0-0.2) mg/dL AST 79 H (14-36) U/L ALT 235 H (4-34) U/L Total Protein 5.6 L (6.3-8.2) g/dL Albumin 3.3 L (3.5-5.0) g/dL Microbiology - Last 24 Hours (Table) 02/08/22 11:55 Gram Stain - Preliminary Sputum Sputum Culture - Preliminary 02/07/22 11:30 Gram Stain - Preliminary Sputum Sputum Culture - Preliminary
[2022-02-09] MEDS ORDERED: RX INFO: IV CONTRAST WAS GIVEN 1 EACH MISC MISCELLANE PRN (09:07)
--- NOTE | 2022-02-09 09:07 | P.PN ---
Subjective Progress Note Date: 02/09/22 This is an 81-year-old female who was initially seen in the emergency room on February 02, for rapid heart rate, and palpitations. She apparently presented with atrial fibrillation and RVR. Today, she underwent cardioversion with 200 J. She was converted after only one cardioversion. Unfortunately, she seems to be very short of breath, and, I was called by cardiology for possible placement into the intensive care unit. The patient was in phase I or recovery, and I went to go see her. She appears to possibly have aspirated as he was increased density in the right chest compared to the left, and, she may also have a touch of CHF. The BMP was elevated. The patient is a lifelong nonsmoker. The patient sees primarily her family doctor, and also cardiology. She does have a history of atrial fibrillation, gastroesophageal reflux disease, hyperlipidemia, hypertension, osteoarthritis, and rheumatoid arthritis. She also has a previous history of cardiac, now with a pericardial window. She also has a history of osteoporosis, and diverticular disease. PT INR and PTT are normal. The N-t erminal proBNP was 8770. The chest x-ray showed diffuse bilateral infiltrates, a bit more dense on the right side. I did spend nurse in phase I recovery to give her Lasix I also spoke to my charge nurse in the ICU. She will need a pro- calcitonin level, chest x-ray in the morning, and labs in the morning. Progress note dated 02/07/2022. 81-year-old female room 266. Yesterday, she was seen in phase I recovery. She was initially admitted on February 02, for atrial fibrillation with rapid ve ntricular response. The patient underwent cardioversion yesterday, but afterwards, was very short of breath. The patient apparently may have aspirated, and also, may have had a touch of heart failure. Because of these 2 reasons, I moved the patient to the intensive care unit, for further monitoring and management. This morning, the patient is currently on 4 L of oxygen. She is a very wet congested cough. She's not receiving any IV fluids. She is receiving IV Lasix. Last night, she apparently had an episode of supraventricular tachycardia, followed by a sinus pause, and then bradycardia. Cardiology is aware. White count 10, hemoglobin 11.3, hematocrit 34.7, and platelet count 176,000. Sodium 131, potassium 3.4, chlorides 92, CO2 29, BUN 23, and creatinine 0.8. AST was 303. ALT was 418. Pro-calcitonin level was 0.59. N-terminal proBNP was 8770. Chest x-ray shows patchy bilateral infiltrates, which are improved on the right, and a bit more significant on the left. ,022, the patient is being seen for a follow-up. This morning, she is on 3 L of oxygen by nasal cannula. The patient presented to us with A. fib RVR. The patient underwent cardioversion and currently she is in normal sinus rhythm. A chest x-ray from today is showing some cardiomegaly and some mild pulmonary vascular congestion. This is consistent with mild CHF as the patient has interstitial pulmonary changes bilaterally. No evidence of any airspace disease or consolidations or pleural effusions. Other the patient had a cardiac catheterization on 01/19/2022 and the patient was found to have normal coronaries. Her echocardiogram that was done on 12/28/2021 showed mild LV systolic dysfunction and ejection fraction was around 40-45%. The patient had severe mitral calcification and moderate degree of mitral regurgitation and moderate degree of mitral stenosis. Otherwise, no other acute abnormalities was identified. The blood work from today shows a white cell count of 7.8 and hemoglobin of 11 and a platelet count of 162. There BUN is at 14 with a creatinine of 0.6 and the sodium level is at 133 and a potassium level is at 3.2 which is being replaced for now. The pro-calcitonin level was slightly elevated at 0.59 at the time of admission and the patient's proBNP level was 8770. Normal coagulation profile. The patient otherwise is currently on DuoNeb nebulized treatments around the clock, IV Zosyn as an empiric antibiotic coverage, and terms of her cardiomyopathy, she is on Entresto 24/25 one tablet a day, Farxiga 10 mg by mouth daily, and Lasix 40 mg by mouth twice a day. The patient is on metoprolol 100 mg XL 1 tablet a day and oral Cardizem 30 mg by mouth 3 times a day. She is on long-term anticoagulation with Eliquis 02/09/2022, the patient is being seen for a follow-up. This morning, the patient on oxygen at 2 L per minute nasal cannula. The patient had another episode of atrial fibrillation with RVR and the heart rate went as high as 190. Note that during yesterday's evaluation, the patient was in a normal sinus rhythm and she was in a sinus rhythm throughout the day. Cardiology was informed and the patient was given her morning metoprolol and her heart rate currently is around 110. It is irregular and the patient remains in atrial fibrillation. The patient remains on a combination of metoprolol 100 mg XL 1 tablet today and the patient is also on Cardizem 30 mg by mouth 3 times a day and the Cardizem dose was increased up to 60 mg by mouth 3 times a day. The patient remains on anticoagulation with a request. On yesterday's evaluation, I was concerned of an active taken bronchitis as the patient is a congested cough and wheeze. The patient was already on bronchodilators. I added IV Solu-Medrol dose of 40 mg every 6 hours and the patient remains on IV Zosyn. Repeat chest x-ray from today is concerning of a right lung pneumonia/loculated effusion. Like to obtain a contrast enhanced CAT scan of the chest. Otherwise, the white cell count is low at 9.0 hemoglobin 12.6. Sodium is at 135 with a potassium level of 3.4, BUN is at 50 with a creatinine of 0.6. A repeat COVID 19 testing was done yesterday and the levels were negative. LFTs were elevated yesterday and without improving upon serial monitoring. The patient is been taking Robitussin-DM for cough and congestion. Objective - Vital Signs Vital signs: Vital Signs Temp 97.5 F L 02/09/22 08:00 Pulse 113 H 02/09/22 07:00 Resp 16 02/09/22 08:00 BP 114/78 02/09/22 08:00 Pulse Ox 96 02/09/22 08:00 FiO2 Intake & Output 02/08/22 02/09/22 02/09/22 18:59 06:59 18:59 Intake Total 460 100 Output Total 2600 1600 Balance -2140 -1500 Weight 67.6 kg Intake: Intake, IV Titration 100 100 Amount Piperacillin-Tazobactam 3 100 100 .375 gm In Sodium Chloride 0.9% 100 ml @ 25 mls/hr IVPB Q12H [facility] Rx# :[id number] Oral 360 0 Output: Urine 2600 1600 Other: Voiding Method Toilet Toilet Toilet - Exam No acute distress, oriented 3. Patient is currently on 3 L. Saturations are 97%. HEENT examination is grossly unremarkable. Neck supple. Full range of motion. No adenopathy thyromegaly or neck vein distention. Cardiovascular examination reveals regular rhythm rate. S1-S2 normal. No S3 or S4. No discernible murmur noted. Heart rate 69 bpm. Lungs reveal scattered rhonchi. Minimal expiratory wheezes. Breath sounds equal bilaterally. The patient's cough is wet and congested sounding. Abdomen soft bowel sounds are heard. No masses or tenderness. Extremities are intact. No cyanosis clubbing or edema. Skin is without rash or lesion. Neurologic examination is brief but nonfocal. - Labs CBC & Chem 7: 02/09/22 06:33 02/09/22 06:33 Labs: Abnormal Lab Results - Last 24 Hours (Table) 02/09/22 02/09/22 Range/Units 06:33 06:33 Neutrophils # 8.1 H (1.3-7.7) k/uL Lymphocytes # 0.5 L (1.0-4.8) k/uL Sodium 135 L (137-145) mmol/L Potassium 3.4 L (3.5-5.1) mmol/L Chloride 95 L (98-107) mmol/L Carbon Dioxide 31 H (22-30) mmol/L Glucose 159 H (74-99) mg/dL Calcium 8.2 L (8.4-10.2) mg/dL Delta Bilirubin 0.4 H (0.0-0.2) mg/dL AST 79 H (14-36) U/L ALT 235 H (4-34) U/L Total Protein 5.6 L (6.3-8.2) g/dL Albumin 3.3 L (3.5-5.0) g/dL Microbiology - Last 24 Hours (Table) 02/08/22 11:55 Gram Stain - Preliminary Sputum Sputum Culture - Preliminary 02/07/22 11:30 Gram Stain - Preliminary Sputum Sputum Culture - Preliminary Assessment and Plan Plan: Atrial fibrillation/RVR, with cardioversion, 02/06/2022. The patient's had another episode of A. fib RVR, started on her oral medications today and the rate is under better control for now. The patient remains on Toprol-XL d 100 mg daily and the patient is also on Cardizem and the dose is decreased of 60 mg by mouth 3 times a day. Anticoagulation is without liquids. acute bronchitis with reactive bronchospasm wheezing. No clear indication for pneumonia at this point in time. The pro calcitonin level has been slightly elevated. Patient is a lifetime nonsmoker. No history of any bronchial asthma. No history of aspiration of the patient's swallow evaluation came back within normal limits. nevertheless, the chest x-ray from morning showing some concerning infiltrationeffusion the right lung. We'll like to investigate this further with a computed tomography scan of the chest. She is still having cough and congestion and she is on examination bronchodilators and steroids. History of chronic atrial fibrillation. The patient received previous cardiac ablation and the patient is having paroxysmal atrial fibrillation History of hypertension. History of hyperlipidemia. History of rheumatoid arthritis. Previous history of pericardial window and this was done post cardiac ablation and iatrogenic pericardial effusion requiring a window. History of osteoporosis. Previous history of cardioversions and electrophysiologic studies with ablation. Plan: Currently on 2L of oxygen by nasal cannula Management of atrial fibrillation per cardiology Obtain a contrast enhanced CAT scan of the chest keep the patient on Solu-Medrol 40 mg every 6 hours Continue the DuoNeb nebulized treatments around the clock Continue IV Zosyn Recheck the COVID 19 by PCRwas negative Sputum sample will be sent today Continue using incentive spirometer Cardiac medications are all appropriate and the patient is still maintained on diuretics We'll continue to follow make further recommendations based on her progress.
[2022-02-09] MEDS: BENZOCAINE/MENTHOL LOZENG 1 EACH LOZENGE MUCOUS MEM PRN (09:22)
[2022-02-09] MEDS: guaiFENesin-DM 100-10MG/5ML 10 ML CUP PO SCH ×3 (09:22→23:53)
[2022-02-09] MEDS: FAMOTIDINE 20 MG/2 ML VIAL IV SCH ×2 (09:22→21:19)
[2022-02-09] MEDS: APIXABAN 2.5 MG TABLET PO SCH ×2 (09:23→21:19)
[2022-02-09] MEDS: CYANOCOBALAMIN 500 MCG TAB PO SCH (09:23)
[2022-02-09] MEDS: DILTIAZEM ORAL 60 MG TAB PO SCH ×3 (09:23→21:22)
[2022-02-09] MEDS: FUROSEMIDE 40 MG TAB PO SCH ×2 (09:23→16:04)
[2022-02-09] MEDS: SACUBITRIL/VALSARTAN 24 MG-26 MG TABLET PO SCH ×2 (09:23→21:19)
[2022-02-09] MEDS: POTASSIUM CHLORIDE ER 20 MEQ TAB.ER PO SCH ×4 (09:24→18:37)
--- NOTE | 2022-02-09 09:46 | US ---
EXAMINATION TYPE: US liver DATE OF EXAM: 02/09/2022 COMPARISON: CT, US CLINICAL HISTORY: Elevated-Liver enzymes. Elevated liver enzymes. Cyst within liver. TECHNIQUE: Multiple sonographic images of the right upper quadrant are obtained. FINDINGS: EXAM MEASUREMENTS: Liver Length: 14.8 cm Gallbladder Wall: 0.20 cm CBD: 0.58 cm Right Kidney: 10.8 x 5.9 x 5.3 cm MULTIPLE COIL WINDER NOTES: Exam is very limited due to gas. Pancreas: Not well seen. Liver: Appears very coarse in echotexture. Anechoic area seen near IVC: 1.8 x 2.4 x 1.4 cm. Gallbladder: Multiple folds seen. Evidence for sonographic Wang's sign: No CBD: Measures upper limits. Right Kidney: No hydronephrosis or masses seen IMPRESSION: No evidence for acute process. Slightly coarsened echotexture to the liver without nodularity to the surface. Correlate for hepatocellular disease. Right hepatic cyst.
[2022-02-09] MEDS: DAPAGLIFLOZIN PROPANEDIOL 10 MG TABLET PO SCH (10:18)
--- NOTE | 2022-02-09 11:03 | CT ---
EXAMINATION TYPE: CT chest w con CT DLP: 297.5 mGycm, Automated exposure control for dose reduction was used. DATE OF EXAM: 02/09/2022 10:51 AM COMPARISON: CTA thoracoabdominal pelvis 12/28/2021. Chest radiograph from same day. CLINICAL INDICATION:Female, 81 years old with history of abnormal RLL TECHNIQUE: Multiple axial images were obtained through the chest following the administration of 100 cc of Isovue 300. Coronal and sagittal reformats reviewed FINDINGS: LUNGS/ PLEURA: Small bilateral pleural effusions with associated atelectasis. Left lower lobe calcifi ed granuloma measuring 8 mm. Patchy left lower lobe groundglass opacity with left upper lobe anterio r tree-in-bud groundglass opacities. AIRWAY: Patent and unremarkable.. HEART: The heart is mildly increased in size.. No pericardial effusion. MEDIASTINUM: No gross evidence of adenopathy. VASCULATURE: No aortic aneurysm. Atherosclerotic calcification of the aorta. Mildly enlarged main pu lmonary artery measuring 3.3 cm likely related to pulmonary arterial hypertension. MUSCULOSKELETAL: No acute osseous abnormalities . No aggressive osseous lesions. Mild thoracic kyphos is with stable anterior wedging of the T6 vertebral body. SOFT TISSUES/LYMPH NODES: Unremarkable. LOWER NECK: No significant findings. UPPER ABDOMEN: Stable hepatic 1.7 cm cyst. Hepatic steatosis. Small hiatal hernia. IMPRESSION: 1. Left lower lobe patchy groundglass opacity with left upper lobe tree-in-bud groundglass opacities likely representing an infectious/inflammatory process. 2. Small bilateral pleural effusions with associated atelectasis.
--- NOTE | 2022-02-09 18:27 | P.EPCON ---
Electrophysiology Consult - EP Consult Electrophysiology Consult: Patient seen in EP consultation Admitted with A. fib with RVR which is difficult to rate control Underwent she underwent electrical cardioversion However following that she remained very short of breath and a pulmonary evaluation was sought She has a left-sided pneumonitis that has been confirmed on chest CT When I saw her in the office several weeks back she had been complaining of a cough which she thought was related to inhibitor as I was of the opinion that this was not drug-related [place] to stop lisinopril nevertheless Subsequently she saw her primary care physician I performed a chest x-ray and evaluation of her diaphragms after the A. fib ablation in October of this year Following that A. fib ablation should be in complaining of shortness of breath Postoperatively there was no evidence for pneumonitis There was no evidence for any atrial fibrillation underwent monitoring She had frequent PVCs while she was on flecainide Coronary angiography was normal in December That the a sniff test of the diaphragm was performed in December of this year While there was no diaphragmatic paralysis, The phrenic nerve had been monitored during PVI There had been no evidence for urinary paraparesis in the right side intraoperatively or postoperatively She now has a left-sided pneumonitis of unclear etiology and is on Zosyn Her atrial fibrillation is in the setting of this pneumonitis It is quite likely that this was brewing for the past week and even after electrocardioversion she remained very short of breath Suggest 2-D echo and Doppler study to reassess LV function And continue Zosyn Continue rate control medications for atrial fibrillation along with anticoagulation No antiarrhythmic drug therapy for now Her last TSH was normal
--- NOTE | 2022-02-09 20:05 | P.PN ---
Subjective 81-year-old lady with past medical history significant for atrial fibrillation, hyperlipidemia, hypertension who presented to the ER because of palpitations. She was all right yesterday night when she went to bed at which time her apple watch notified of her heart rate being in the 170s. At that time patient was also complaining of palpitations. Patient also complaining of dizziness. Patient was brought to the ER of [facility]. Initial EKG showed SVT versus atrial tachycardia with heart rate 170s. Patient was started on IV Card izem drip and admitted to hospitalist service. 02/06/2022 Patient is seen and evaluated in room at bedside; remains in atrial fibrillation with heart rate ranging between 140s to 160s Vital signs reveal temperature of 97.9, pulse 160, respiration 24 and blood pressure 127/71 - Patient remains on beta blockers and calcium channel blockers; was intolerant of amiodarone which was discontinued Cardiology planning to take patient for cardioversion given uncontrolled heart rate and patient being symptomatic 02/07/2022 Patient is seen and evaluated in ICU; patient underwent cardioversion yesterday after which went into acute respiratory distress and was transferred to ICU for possible aspiration pneumonia/fluid overload -- Patient has an episode of SVT last night which is followed by sinus positive and bradycardia; cardiology is on board and recommending to discontinue Cardizem; and Coreg patient is placed on metoprolol succinate 50 mg twice a day; amlodipine and Dyazide at placed on hold due to softer blood pressures White count 10, hemoglobin 11.3, hematocrit 34.7, and platelet count 176,000. Sodium 131, potassium 3.4, chlorides 92, CO2 29, BUN 23, and creatinine 0.8. AST was 303. ALT was 418. Pro-calcitonin level was 0.59. N-terminal proBNP was 8770. Chest x-ray shows patchy bilateral infiltrates, which are improved on the right, and a bit more significant on the left. Patient has been placed on bronchodilator nebulizer treatments; 4 times a day and when necessary; has been receiving and has been started on IV Zosyn given infiltrates on chest x-ray and pro-calcitonin trending up 02/08/2022 This is a pleasant 81 old female who was admitted with supraventricular tachy cardia versus atrial tachycardia and in view of her chronic history of atrial fibrillation she underwent cardioversion ablation on 02/06. Patient currently heart rate is better controlled, actually she was slightly bradycardic and Cardizem dose was lowered to 30 mg 3 times a day. Also patient kept on metoprolol 100 mg. IV Lasix switched to oral dose of 40 mg twice daily and started on entresto Today she still feeling short of breath and tachypnea. She is not on home oxygen and currently she wears 4 L/m. She still have cough with little phlegm. She says she has chronic and steady gait. She's been evaluated by neurologist patient had low appetite but no diarrhea She remains on Zosyn and she still tachypnea. Chest x-ray showing bilateral atypical pneumonia versus CHF. ProBNP and pro-calcitonin both are elevated 8770 and 0.59 respectively. Patient is on home dose of leg was 2.5 mg. We will check a swallow evaluation and bladder scan. 02/09/2022 Patient dyspnea is a slightly better, he still lethargic, his cough is better also Robitussin. He has low appetite but no diarrhea. He is on 2 L oxygen via nasal cannula. Weld Engineer R following the patient for cardiac arrhythmia, he has chronic atrial fibrillation status post ablation and developed atrial tachycardia, currently his heart rate is in the 50s. Also had CT of the chest showing left lower lobe inflammatory process is s uspected with tree-in-bud appearance. Patient currently kept on Zosyn. Also he is on Eliquis and metoprolol per infection prevention coordinator. Also he is on Cardizem per infection prevention coordinator. Liver ultrasound showing hepatocellular disease and an anechoic area near IVC 1.8 x 2.4 x 1.4 cm, liver enzymes are trending down. The patient started on IV Solu-Medrol for possible COPD exacerbation Objective - Vital Signs Vital signs: Vital Signs Temp 97.5 F L 02/09/22 08:00 Pulse 112 H 02/09/22 10:00 Resp 16 02/09/22 10:00 BP 110/65 02/09/22 10:00 Pulse Ox 93 L 02/09/22 10:00 FiO2 Intake & Output 02/08/22 02/09/22 02/09/22 18:59 06:59 18:59 Intake Total 460 100 Output Total 2600 1600 250 Balance -2140 -1500 -250 Weight 67.6 kg Intake: Intake, IV Titration 100 100 Amount Piperacillin-Tazobactam 3 100 100 .375 gm In Sodium Chloride 0.9% 100 ml @ 25 mls/hr IVPB Q12H [facility] Rx# :[id number] Oral 360 0 Output: Urine 2600 1600 250 Other: Voiding Method Toilet Toilet Toilet - Exam GENERAL: The patient is alert and oriented x3, not in any acute distress. Well developed, well nourished. HEENT: Pupils are round and equally reacting to light. EOMI. No scleral icterus. No conjunctival pallor. Normocephalic, atraumatic. No pharyngeal erythema. No thyromegaly. CARDIOVASCULAR: S1 and S2 present. No murmurs, rubs, or gallops. PULMONARY: Chest is clear to auscultation, no wheezing or crackles. ABDOMEN: Soft, nontender, nondistended, normoactive bowel sounds. No palpable organomegaly. MUSCULOSKELETAL: No joint swelling or deformity. EXTREMITIES: No cyanosis, clubbing, or pedal edema. NEUROLOGICAL: Gross neurological examination did not reveal any focal deficits. SKIN: No rashes. no petechiae. - Labs CBC & Chem 7: 02/09/22 06:33 02/09/22 16:43 Labs: Abnormal Lab Results - Last 24 Hours (Table) 02/09/22 02/09/22 Range/Units 06:33 06:33 Neutrophils # 8.1 H (1.3-7.7) k/uL Lymphocytes # 0.5 L (1.0-4.8) k/uL Sodium 135 L (137-145) mmol/L Potassium 3.4 L (3.5-5.1) mmol/L Chloride 95 L (98-107) mmol/L Carbon Dioxide 31 H (22-30) mmol/L Glucose 159 H (74-99) mg/dL Calcium 8.2 L (8.4-10.2) mg/dL Delta Bilirubin 0.4 H (0.0-0.2) mg/dL AST 79 H (14-36) U/L ALT 235 H (4-34) U/L Total Protein 5.6 L (6.3-8.2) g/dL Albumin 3.3 L (3.5-5.0) g/dL Microbiology - Last 24 Hours (Table) 02/07/22 11:30 Gram Stain - Final Sputum Sputum Culture - Final 02/08/22 11:55 Gram Stain - Preliminary Sputum Sputum Culture - Preliminary Assessment and Plan Assessment: SVT with short RP vs atrial tachycardia Paroxysmal atrial fibrillation status post cardioversion on 02/06, on Eliquis Possible left lower lobe pneumonia, with tree-in-bud appearance Elevated liver enzymes Acute COPD exacerbation Borderline low vitamin B12 Hypertension GERD Dyslipidemia History of osteoporosis Unsteady gait Plan: this is a pleasant 81-year-old female who presents with SVT/A. fib and elevated liver enzymes Continue with Cardizem 30 mg, metoprolol. Continue with the liquids Weld Engineer on the case Continue with antibiotics Zosyn with pulmonary team on the case as well. Continue with vitamin B12 replacement therapy Continue with IV Solu-Medrol Neurology evaluated The patient and ordered vitamin B12, folate, HbA1c, orthostatic vitals. They recommended imaging such as CT or MRI Brain but the patient refused. Labs and medication were reviewed.. Continue same treatment. Continue with symptomatic treatment. Resume home medication. Monitor lytes and vitals. DVT and GI prophylaxis. Further recommendations as per clinical course of the patient DVT prophylaxis: eliquis GI Prophylaxis: Pepcid PT/OT: Pending Prognosis is guarded
[2022-02-09] MEDS ORDERED: POTASSIUM BICARBONATE/CIT AC 20 MEQ TABLET.EFF NG-TUBE SCH (22:00)
[2022-02-10 04:42] LABS: Calcium 8.5 mg/dL (8.4-10.2); Potassium 3.8 mmol/L (3.5-5.1)
[2022-02-10] MEDS ORDERED: POTASSIUM BICARBONATE/CIT AC 20 MEQ TABLET.EFF NG-TUBE SCH (05:00)
[2022-02-10] MEDS: methylPREDNISolone SOD SUCCI 40 MG/ML 1 ML VIAL IV SCH ×3 (06:47→16:46)
[2022-02-10] MEDS: IPRATROPIUM-ALBUTEROL 3 ML NEB INHALATION SCH ×4 (07:27→19:47)
--- NOTE | 2022-02-10 07:52 | P.PN ---
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 She has been complaining of progressive dyspnea and fatigue and there is a possibility of aspiration pneumonia. She continues to feel fatigued this morning, she has mild dyspnea. She has been coughing at times yellow sputum. She denies any chest discomfort, dizziness or palpitations. She continues to be in sinus mechanism. Her blood pressure is stable. February 09: The patient is back in atrial tachycardia with episodes of rapid ventricle response here at she denies any chest discomfort, she continues to be dyspneic. She denies any dizziness, she feels the palpitations at times. Her cough is stable. She denies any nausea or vomiting. Her blood pressure is stable. February 10: The patient feels well this morning, her breathing is stable. She continues to have a cough but improving. She is back in sinus mechanism. She denies any chest discomfort, dizziness or palpitations. She denies any nausea or vomiting. Her blood pressure is stable. She is afebrile. She had a computed tomography scan of the chest that showed left lower lobe patchy groundglass opacity with small bilateral pleural effusion Medications: Diltiazem 60 mg 3 times a day, metoprolol 100 mg twice a day, Lasix 40 mg po every 12 hours, Eliquis 2.5 mg twice a day, Farxiga 10 mg qd, Entresto 24-26 milligrams twice a day PHYSICAL EXAMINATION: Blood pressure 108/50 with a heart rate in the 50s LUNGS: Mild decreased breath sounds at the base with few crackles HEART: Regular rate and rhythm, S1, S2. No S3. systolic murmur at the base ABDOMEN: Soft, nontender, no organomegaly EXTREMETIES: No edema LAB: Potassium 3.8, BUN 20, creatinine 0.73 IMPRESSION: 1. Atrial fibrillation, post cardioversion, back in sinus mechanism since yesterday 2. Progressive dyspnea with evidence of CHF and possible pneumonia 3. Mild to moderate nonischemic cardiomyopathy 4. History of hypertension PLAN: 1. Continue present therapy 2. Decreased oral diuretics and add Aldactone 3. Transfer to telemetry 4. Increase physical activity 5. If stable probable discharge home in 24-48 hours Objective - Vital Signs Vital signs: Vital Signs Temp 98.1 F 02/10/22 04:00 Pulse 51 L 02/10/22 07:37 Resp 21 02/10/22 07:00 BP 108/54 02/10/22 07:00 Pulse Ox 96 02/10/22 07:30 FiO2 Intake & Output 02/09/22 02/10/22 02/10/22 18:59 06:59 18:59 Intake Total 100 675 Output Total 550 950 Balance -450 -275 Weight 72.3 kg Intake: IV 100 Piperacillin-Tazobactam 3 100 .375 gm In Sodium Chloride 0.9% 100 ml @ 25 mls/hr IVPB Q12H [facility] Rx# :[id number] Intake, IV Titration 100 Amount Piperacillin-Tazobactam 3 100 .375 gm In Sodium Chloride 0.9% 100 ml @ 25 mls/hr IVPB Q[facility]H [facility] Rx# :[id number] Oral 575 Output: Urine 550 950 Other: Voiding Method Toilet Toilet - Labs CBC & Chem 7: 02/09/22 06:33 02/10/22 04:09 Labs: Abnormal Lab Results - Last 24 Hours (Table) 02/10/22 Range/Units 04:09 Sodium 132 L (137-145) mmol/L Chloride 94 L (98-107) mmol/L BUN 20 H (7-17) mg/dL Glucose 159 H (74-99) mg/dL Microbiology - Last 24 Hours (Table) 02/07/22 11:30 Gram Stain - Final Sputum Sputum Culture - Final 02/08/22 11:55 Gram Stain - Preliminary Sputum Sputum Culture - Preliminary
[2022-02-10] MEDS: APIXABAN 2.5 MG TABLET PO SCH ×2 (08:38→20:22)
[2022-02-10] MEDS: DILTIAZEM ORAL 60 MG TAB PO SCH ×2 (08:38→13:36)
[2022-02-10] MEDS: guaiFENesin-DM 100-10MG/5ML 10 ML CUP PO SCH ×2 (08:38→15:58)
[2022-02-10] MEDS: SPIRONOLACTONE 25 MG TAB PO SCH (08:39)
[2022-02-10] MEDS: CYANOCOBALAMIN 500 MCG TAB PO SCH (08:39)
[2022-02-10] MEDS: SACUBITRIL/VALSARTAN 24 MG-26 MG TABLET PO SCH ×2 (08:39→20:22)
[2022-02-10] MEDS: FAMOTIDINE 20 MG/2 ML VIAL IV SCH (08:39)
[2022-02-10] MEDS: FUROSEMIDE 20 MG TAB PO SCH ×2 (08:42→15:58)
[2022-02-10] MEDS: METOPROLOL SUCCINATE (ER) 100 MG TAB.ER.24H PO SCH ×2 (08:49→20:22)
--- NOTE | 2022-02-10 10:11 | P.PN ---
Subjective Progress Note Date: 02/10/22 This is an 81-year-old female who was initially seen in the emergency room on February 02, for rapid heart rate, and palpitations. She apparently presented with atrial fibrillation and RVR. Today, she underwent cardioversion with 200 J. She was converted after only one cardioversion. Unfortunately, she seems to be very short of breath, and, I was called by cardiology for possible placement into the intensive care unit. The patient was in phase I or recovery, and I went to go see her. She appears to possibly have aspirated as he was increased density in the right chest compared to the left, and, she may also have a touch of CHF. The BMP was elevated. The patient is a lifelong nonsmoker. The patient sees primarily her family doctor, and also cardiology. She does have a history of atrial fibrillation, gastroesophageal reflux disease, hyperlipidemia, hypertension, osteoarthritis, and rheumatoid arthritis. She also has a previous history of cardiac, now with a pericardial window. She also has a history of osteoporosis, and diverticular disease. PT INR and PTT are normal. The N-t erminal proBNP was 8770. The chest x-ray showed diffuse bilateral infiltrates, a bit more dense on the right side. I did spend nurse in phase I recovery to give her Lasix I also spoke to my charge nurse in the ICU. She will need a pro- calcitonin level, chest x-ray in the morning, and labs in the morning. Progress note dated 02/07/2022. 81-year-old female room 266. Yesterday, she was seen in phase I recovery. She was initially admitted on February 02, for atrial fibrillation with rapid ve ntricular response. The patient underwent cardioversion yesterday, but afterwards, was very short of breath. The patient apparently may have aspirated, and also, may have had a touch of heart failure. Because of these 2 reasons, I moved the patient to the intensive care unit, for further monitoring and management. This morning, the patient is currently on 4 L of oxygen. She is a very wet congested cough. She's not receiving any IV fluids. She is receiving IV Lasix. Last night, she apparently had an episode of supraventricular tachycardia, followed by a sinus pause, and then bradycardia. Cardiology is aware. White count 10, hemoglobin 11.3, hematocrit 34.7, and platelet count 176,000. Sodium 131, potassium 3.4, chlorides 92, CO2 29, BUN 23, and creatinine 0.8. AST was 303. ALT was 418. Pro-calcitonin level was 0.59. N-terminal proBNP was 8770. Chest x-ray shows patchy bilateral infiltrates, which are improved on the right, and a bit more significant on the left. ,022, the patient is being seen for a follow-up. This morning, she is on 3 L of oxygen by nasal cannula. The patient presented to us with A. fib RVR. The patient underwent cardioversion and currently she is in normal sinus rhythm. A chest x-ray from today is showing some cardiomegaly and some mild pulmonary vascular congestion. This is consistent with mild CHF as the patient has interstitial pulmonary changes bilaterally. No evidence of any airspace disease or consolidations or pleural effusions. Other the patient had a cardiac catheterization on 01/19/2022 and the patient was found to have normal coronaries. Her echocardiogram that was done on 12/28/2021 showed mild LV systolic dysfunction and ejection fraction was around 40-45%. The patient had severe mitral calcification and moderate degree of mitral regurgitation and moderate degree of mitral stenosis. Otherwise, no other acute abnormalities was identified. The blood work from today shows a white cell count of 7.8 and hemoglobin of 11 and a platelet count of 162. There BUN is at 14 with a creatinine of 0.6 and the sodium level is at 133 and a potassium level is at 3.2 which is being replaced for now. The pro-calcitonin level was slightly elevated at 0.59 at the time of admission and the patient's proBNP level was 8770. Normal coagulation profile. The patient otherwise is currently on DuoNeb nebulized treatments around the clock, IV Zosyn as an empiric antibiotic coverage, and terms of her cardiomyopathy, she is on Entresto 24/25 one tablet a day, Farxiga 10 mg by mouth daily, and Lasix 40 mg by mouth twice a day. The patient is on metoprolol 100 mg XL 1 tablet a day and oral Cardizem 30 mg by mouth 3 times a day. She is on long-term anticoagulation with Eliquis 02/09/2022, the patient is being seen for a follow-up. This morning, the patient on oxygen at 2 L per minute nasal cannula. The patient had another episode of atrial fibrillation with RVR and the heart rate went as high as 190. Note that during yesterday's evaluation, the patient was in a normal sinus rhythm and she was in a sinus rhythm throughout the day. Cardiology was informed and the patient was given her morning metoprolol and her heart rate currently is around 110. It is irregular and the patient remains in atrial fibrillation. The patient remains on a combination of metoprolol 100 mg XL 1 tablet today and the patient is also on Cardizem 30 mg by mouth 3 times a day and the Cardizem dose was increased up to 60 mg by mouth 3 times a day. The patient remains on anticoagulation with a request. On yesterday's evaluation, I was concerned of an active taken bronchitis as the patient is a congested cough and wheeze. The patient was already on bronchodilators. I added IV Solu-Medrol dose of 40 mg every 6 hours and the patient remains on IV Zosyn. Repeat chest x-ray from today is concerning of a right lung pneumonia/loculated effusion. Like to obtain a contrast enhanced CAT scan of the chest. Otherwise, the white cell count is low at 9.0 hemoglobin 12.6. Sodium is at 135 with a potassium level of 3.4, BUN is at 50 with a creatinine of 0.6. A repeat COVID 19 testing was done yesterday and the levels were negative. LFTs were elevated yesterday and without improving upon serial monitoring. The patient is been taking Robitussin-DM for cough and congestion. 02/10/2022, the patient is doing well. Cough and congestion his settled down significantly. I reviewed the CAT scan of the chest that was done yesterday. It showed small bilateral pleural effusions and some limited atelectatic changes in lung bases and some postinfectious groundglass changes. Is very minimal and of no major concern. No evidence of any malignancy. There was a hepatic cyst measuring 1.7 cm in size. Sputum cultures are negative. The patient's blood work shows no major electrode disturbance. Potassium is at 3.8. He is at 20 with a creatinine of 0.7. Of importance is that the patient converted back into normal sinus rhythm. For this point as cardioversion. The patient is currently on a combination of metoprolol and Cardizem pH is on long-term and to coagulation with a request. She is still on bronchodilators and she is also on systemic steroids. Her CHF as well compensated at this point in time. She has no specific complaints. She is on 2 L O2 nasal cannula and she'll be weaned down to room air oxygen. Objective - Vital Signs Vital signs: Vital Signs Temp 98.1 F 02/10/22 04:00 Pulse 51 L 02/10/22 07:37 Resp 21 02/10/22 07:00 BP 108/54 02/10/22 07:00 Pulse Ox 96 02/10/22 07:30 FiO2 Intake & Output 02/09/22 02/10/22 02/10/22 18:59 06:59 18:59 Intake Total 100 675 Output Total 550 950 Balance -450 -275 Weight 72.3 kg Intake: IV 100 Piperacillin-Tazobactam 3 100 .375 gm In Sodium Chloride 0.9% 100 ml @ 25 mls/hr IVPB Q12H [facility] Rx# :[id number] Intake, IV Titration 100 Amount Piperacillin-Tazobactam 3 100 .375 gm In Sodium Chloride 0.9% 100 ml @ 25 mls/hr IVPB Q12H [facility] Rx# :[id number] Oral 575 Output: Urine 550 950 Other: Voiding Method Toilet Toilet Toilet - Exam No acute distress, oriented 3. Patient is currently on 2 L. Saturations are 97%. HEENT examination is grossly unremarkable. Neck supple. Full range of motion. No adenopathy thyromegaly or neck vein distention. Cardiovascular examination reveals regular rhythm rate. S1-S2 normal. No S3 or S4. No discernible murmur noted. Lungs sounds are diminished bilaterally and there is marked improvement in the bronchospasm wheezing that was appreciated earlier. Some limited rhonchi and wheeze is still appreciated. Abdomen soft bowel sounds are heard. No masses or tenderness. Extremities are intact. No cyanosis clubbing or edema. Skin is without rash or lesion. Neurologic Neurologically, the patient is awake and alert and the patient does not have any focal neurological deficit. Cranial nerves are essentially intact. - Labs CBC & Chem 7: 02/09/22 06:33 02/10/22 04:09 Labs: Abnormal Lab Results - Last 24 Hours (Table) 02/10/22 Range/Units 04:09 Sodium 132 L (137-145) mmol/L Chloride 94 L (98-107) mmol/L BUN 20 H (7-17) mg/dL Glucose 159 H (74-99) mg/dL Microbiology - Last 24 Hours (Table) 02/08/22 11:55 Gram Stain - Final Sputum Sputum Culture - Final 02/07/22 11:30 Gram Stain - Final Sputum Sputum Culture - Final Assessment and Plan Plan: Atrial fibrillation/RVR, with cardioversion, 02/06/2022. And on 02/09/2022. The patient converted into normal sinus rhythm. The patient remains on a combination of Toprol-XL 100 mg daily and Cardizem 60 mg by mouth 3 times a day. The patient was seen by EP and medication adjustments were done by cardiology. The patient is back to normal sinus rhythm. The patient is currently on anticoa gulation with lupus. acute bronchitis with reactive bronchospasm wheezing. No clear indication for pneumonia at this point in time. The pro calcitonin level has been slightly elevated. Patient is a lifetime nonsmoker. There is some limited atelectatic changes and groundglass changes and left lung base. The patient remains on IV Zosyn. The patient remains on IV Solu Medrol and there is marked improvement in her underlying bronchospasm wheezing and symptoms of bronchitis. No convincing evidence of pneumonia. Small bilateral pleural effusions History of chronic atrial fibrillation. The patient received previous cardiac ablation and the patient is having paroxysmal atrial fibrillation History of hypertension. History of hyperlipidemia. History of rheumatoid arthritis. Previous history of pericardial window and this was done post cardiac ablation and iatrogenic pericardial effusion requiring a window. History of osteoporosis. Previous history of cardioversions and electrophysiologic studies with ablation. Plan: Wean down the patient to room air oxygen if possible Continue using incentive spirometer Management of atrial fibrillation per cardiology Obtain a contrast enhanced CAT scan of the chest and this was reviewed and the findings are essentially benign. Limited postinfectious changes. Very small pleural effusions. keep the patient on Solu-Medrol 40 mg every 6 hours, and the patient is going to be transitioned to prednisone burst taper as of tomorrow. Continue the DuoNeb nebulized treatments around the clock Continue IV Zosyn Continue using incentive spirometer Cardiac medications are all appropriate and the patient is still maintained on diuretics, still on a combination of Aldactone and Lasix We'll continue to follow make further recommendations based on her progress. May transfer to [facility]
--- NOTE | 2022-02-10 11:06 | CA ---
Transthoracic Echo Report Name: Miya Colon Age: 81 Gender: F : 1940 Exam Date: 02/10/2022 07:57 Exam Location: [facility] Ht (in): 64 Wt (lb): 149 Ordering Physician: Víctor Narvaez MD ([id number]) Attending/Referring Phys: Carpet Installer Helper Sonam Walden RDCS Procedure CPT: Indications: irregular heart rhythm Cardiac Hx: Technical Quality: Good Contrast 1: Total Dose (mL): Contrast 2: Total Dose (mL): MEASUREMENTS (Male / Female) Normal Values 2D ECHO LV Diastolic Diameter PLAX 4.4 cm 4.2 - 5.9 / 3.9 - 5.3 cm LV Systolic Diameter PLAX 2.8 cm IVS Diastolic Thickness 1.5 cm 0.6 - 1.0 / 0.6 - 0.9 cm LVPW Diastolic Thickness 1.5 cm 0.6 - 1.0 / 0.6 - 0.9 cm LV Relative Wall Thickness 0.7 RV Internal Dim ED PLAX 3.3 cm LA Systolic Diameter LX 4.8 cm 3.0 - 4.0 / 2.7 - 3.8 cm LA Volume 133.5 cm??? 18 - 58 / 22 - 52 cm??? M-MODE MV E Point Septal Separation 0.9 cm DOPPLER MV Peak Velocity 267.2 cm/s MV Peak Gradient 28.6 mmHg MV Mean Velocity 107.7 cm/s MV Mean Gradient 6.7 mmHg MV Velocity Time Integral 65.6 cm MV Area PHT 1.6 cm??? Mitral E Point Velocity 236.0 cm/s Mitral A Point Velocity 71.2 cm/s Mitral E to A Ratio 3.3 MV Deceleration Time 469.0 ms MV E' Velocity 4.5 cm/s Mitral E to MV E' Ratio 51.9 TR Peak Velocity 355.7 cm/s TR Peak Gradient 50.6 mmHg Right Ventricular Systolic Press 54.3 mmHg FINDINGS Left Ventricle Left ventricular ejection fraction is estimated 50-55%. Mildly increased left ventricular wall thickness. Right Ventricle Normal right ventricular size and function. Right Atrium Normal right atrial size. Left Atrium Severely increased left atrial diameter. Severely increased left atrial volume. Moderately increased left atrial area. Mitral Valve Mv not well visualized, moderate mitral stenosis. mv peak gradient 29mmHg and mean gradient of 7mmHg, Severe MR. Aortic Valve Trileaflet aortic valve. Aortic valve sclerosis. Tricuspid Valve Structurally normal tricuspid valve. Moderate tricuspid regurgitation. Pulmonic Valve Structurally normal pulmonic valve. Pericardium Normal pericardium. Aorta Normal size aortic root and proximal ascending aorta. CONCLUSIONS Normal LV systolic function Severe mitral annular calcification with restricted leaflet mobility and severe mitral regurgitation there is moderate mitral stenosis with a peak gradient of 29 mm and the mean gradient of 7 mm across the valve Left atrium appears enlarged Consider transesophageal echo if clinically indicated Previewed by: Dr. Ezequiel Kent MD (Electronically Signed) Final Date: 10 February 2022 11:05
[2022-02-10] MEDS: PIPERACILLIN-TAZOBACTAM 3.375 GM in SODIUM CHLORIDE 0.9% 100 ML IVPB SCH (12:13)
[2022-02-10] MEDS: DAPAGLIFLOZIN PROPANEDIOL 10 MG TABLET PO SCH (12:13)
[2022-02-10 13:14] VITALS: BMI 27.3
[2022-02-10] MEDS ORDERED: METOPROLOL TARTRATE 50 MG TAB PO STA (14:55)
[2022-02-10] MEDS ORDERED: DILTIAZEM DRIP BOLUS FROM BAG 1 MG SOLN IV ONE (16:31)
[2022-02-10] MEDS: DILTIAZEM 125 MG in SODIUM CHLORIDE 0.9% 100 ML IV SCH (16:45)
[2022-02-10] MEDS: FAMOTIDINE 20 MG TAB PO SCH (20:22)
--- NOTE | 2022-02-10 21:39 | P.PN ---
Subjective 81-year-old lady with past medical history significant for atrial fibrillation, hyperlipidemia, hypertension who presented to the ER because of palpitations. She was all right yesterday night when she went to bed at which time her apple watch notified of her heart rate being in the 170s. At that time patient was also complaining of palpitations. Patient also complaining of dizziness. Patient was brought to the ER of [facility]. Initial EKG showed SVT versus atrial tachycardia with heart rate 170s. Patient was started on IV Card izem drip and admitted to hospitalist service. 02/06/2022 Patient is seen and evaluated in room at bedside; remains in atrial fibrillation with heart rate ranging between 140s to 160s Vital signs reveal temperature of 97.9, pulse 160, respiration 24 and blood pressure 127/71 - Patient remains on beta blockers and calcium channel blockers; was intolerant of amiodarone which was discontinued Cardiology planning to take patient for cardioversion given uncontrolled heart rate and patient being symptomatic 02/07/2022 Patient is seen and evaluated in ICU; patient underwent cardioversion yesterday after which went into acute respiratory distress and was transferred to ICU for possible aspiration pneumonia/fluid overload -- Patient has an episode of SVT last night which is followed by sinus positive and bradycardia; cardiology is on board and recommending to discontinue Cardizem; and Coreg patient is placed on metoprolol succinate 50 mg twice a day; amlodipine and Dyazide at placed on hold due to softer blood pressures White count 10, hemoglobin 11.3, hematocrit 34.7, and platelet count 176,000. Sodium 131, potassium 3.4, chlorides 92, CO2 29, BUN 23, and creatinine 0.8. AST was 303. ALT was 418. Pro-calcitonin level was 0.59. N-terminal proBNP was 8770. Chest x-ray shows patchy bilateral infiltrates, which are improved on the right, and a bit more significant on the left. Patient has been placed on bronchodilator nebulizer treatments; 4 times a day and when necessary; has been receiving and has been started on IV Zosyn given infiltrates on chest x-ray and pro-calcitonin trending up 02/08/2022 This is a pleasant 81 old female who was admitted with supraventricular tachy cardia versus atrial tachycardia and in view of her chronic history of atrial fibrillation she underwent cardioversion ablation on 02/06. Patient currently heart rate is better controlled, actually she was slightly bradycardic and Cardizem dose was lowered to 30 mg 3 times a day. Also patient kept on metoprolol 100 mg. IV Lasix switched to oral dose of 40 mg twice daily and started on entresto Today she still feeling short of breath and tachypnea. She is not on home oxygen and currently she wears 4 L/m. She still have cough with little phlegm. She says she has chronic and steady gait. She's been evaluated by neurologist patient had low appetite but no diarrhea She remains on Zosyn and she still tachypnea. Chest x-ray showing bilateral atypical pneumonia versus CHF. ProBNP and pro-calcitonin both are elevated 8770 and 0.59 respectively. Patient is on home dose of leg was 2.5 mg. We will check a swallow evaluation and bladder scan. 02/09/2022 Patient dyspnea is a slightly better, he still lethargic, his cough is better also Robitussin. He has low appetite but no diarrhea. He is on 2 L oxygen via nasal cannula. Corrections Identification Technician R following the patient for cardiac arrhythmia, he has chronic atrial fibrillation status post ablation and developed atrial tachycardia, currently his heart rate is in the 50s. Also had CT of the chest showing left lower lobe inflammatory process is s uspected with tree-in-bud appearance. Patient currently kept on Zosyn. Also he is on Eliquis and metoprolol per ict support technicians. Also he is on Cardizem per ict support technicians. Liver ultrasound showing hepatocellular disease and an anechoic area near IVC 1.8 x 2.4 x 1.4 cm, liver enzymes are trending down. The patient started on IV Solu-Medrol for possible COPD exacerbation 02/11/2012 Patient states improving in all of her symptoms occluding the dyspnea coughing. She is eating better today with no diarrhea. She was on 2 L oxygen via nasal cannula in the morning. No GI or urinary symptoms. Echocardiogram today showing ejection fraction of 50-55% with severe mitral regurgitation and moderate mitral stenosis. Patient was placed on Cardizem drip. Currently heart rate is more than 100-112. Cardiology been following her closely. She is currently on Lasix 20 mg twice daily. Aldactone 25 mg IV. Heart rate was in the 50s yesterday. We will defer to cardiology for management of cardiac arrhythmia. Patient remains on Zosyn, IV Solu-Medrol, liquids 2.5 mg and other cardiac medications Also patient has elevated liver enzymes trending down, patient will benefit from GI evaluation, no GI service in this facility during this week Objective - Vital Signs Vital signs: Vital Signs Temp 98.1 F 02/10/22 04:00 Pulse 51 L 02/10/22 07:37 Resp 21 02/10/22 07:00 BP 108/54 02/10/22 07:00 Pulse Ox 96 02/10/22 07:30 FiO2 Intake & Output 02/09/22 02/10/22 02/10/22 18:59 06:59 18:59 Intake Total 100 675 Output Total 550 950 Balance -450 -275 Weight 72.3 kg Intake: IV 100 Piperacillin-Tazobactam 3 100 .375 gm In Sodium Chloride 0.9% 100 ml @ 25 mls/hr IVPB Q12H [facility] Rx# :[id number] Intake, IV Titration 100 Amount Piperacillin-Tazobactam 3 100 .375 gm In Sodium Chloride 0.9% 100 ml @ 25 mls/hr IVPB Q12H [facility] Rx# :[id number] Oral 575 Output: Urine 550 950 Other: Voiding Method Toilet Toilet Toilet - Exam GENERAL: The patient is alert and oriented x3, not in any acute distress. Well developed, well nourished. HEENT: Pupils are round and equally reacting to light. EOMI. No scleral icterus. No conjunctival pallor. Normocephalic, atraumatic. No pharyngeal erythema. No thyromegaly. CARDIOVASCULAR: S1 and S2 present. No murmurs, rubs, or gallops. PULMONARY: Chest is clear to auscultation, no wheezing or crackles. ABDOMEN: Soft, nontender, nondistended, normoactive bowel sounds. No palpable organomegaly. MUSCULOSKELETAL: No joint swelling or deformity. EXTREMITIES: No cyanosis, clubbing, or pedal edema. NEUROLOGICAL: Gross neurological examination did not reveal any focal deficits. SKIN: No rashes. no petechiae. - Labs CBC & Chem 7: 02/09/22 06:33 02/10/22 04:09 Labs: Abnormal Lab Results - Last 24 Hours (Table) 02/10/22 Range/Units 04:09 Sodium 132 L (137-145) mmol/L Chloride 94 L (98-107) mmol/L BUN 20 H (7-17) mg/dL Glucose 159 H (74-99) mg/dL Microbiology - Last 24 Hours (Table) 02/07/22 11:30 Gram Stain - Final Sputum Sputum Culture - Final 02/08/22 11:55 Gram Stain - Preliminary Sputum Sputum Culture - Preliminary Assessment and Plan Assessment: SVT with short RP vs atrial tachycardia Paroxysmal atrial fibrillation status post cardioversion on 02/06, on Eliquis Possible left lower lobe pneumonia, with tree-in-bud appearance Elevated liver enzymes Acute COPD exacerbation Borderline low vitamin B12 Hypertension GERD Dyslipidemia History of osteoporosis Unsteady gait Plan: this is a pleasant 81-year-old female who presents with SVT/A. fib and elevated liver enzymes Continue with Cardizem 30 mg, metoprolol. Continue with the liquids Corrections Identification Technician on the case Continue with antibiotics Zosyn with pulmonary team on the case as well. Continue with vitamin B12 replacement therapy Continue with IV Solu-Medrol Neurology evaluated The patient and ordered vitamin B12, folate, HbA1c, orthostatic vitals. They recommended imaging such as CT or MRI Brain but the patient refused. Labs and medication were reviewed.. Continue same treatment. Continue with symptomatic treatment. Resume home medication. Monitor lytes and vitals. DVT and GI prophylaxis. Further recommendations as per clinical course of the patient DVT prophylaxis: eliquis GI Prophylaxis: Pepcid PT/OT: Pending Prognosis is guarded
[2022-02-11] MEDS: methylPREDNISolone SOD SUCCI 40 MG/ML 1 ML VIAL IV SCH ×2 (00:06→06:21)
[2022-02-11] MEDS: guaiFENesin-DM 100-10MG/5ML 10 ML CUP PO SCH ×3 (00:06→21:10)
[2022-02-11] MEDS: PIPERACILLIN-TAZOBACTAM 3.375 GM in SODIUM CHLORIDE 0.9% 100 ML IVPB SCH (00:30)
[2022-02-11] MEDS: DILTIAZEM 125 MG in SODIUM CHLORIDE 0.9% 100 ML IV SCH ×2 (02:50→15:55)
[2022-02-11 06:33] LABS: ALT 118 U/L (4-34); AST 26 U/L (14-36); African American GFR (CKD) >90 (>60 ml/min/1.73 sqM); Alkaline Phosphatase 72 U/L (38-126); Anion Gap 10 mmol/L; Bilirubin, Delta 0.1 mg/dL (0.0-0.2); Bilirubin,Unconjugated 0.5 mg/dL (0.0-1.1); Blood Urea Nitrogen 23 mg/dL (7-17); Calcium 8.3 mg/dL (8.4-10.2); Carbon Dioxide 29 mmol/L (22-30); Chloride 94 mmol/L (98-107); Glucose 175 mg/dL (74-99); Magnesium 2.1 mg/dL (1.6-2.3); Non-African American GFR(CKD) 81 (>60 ml/min/1.73 sqM); Potassium 3.3 mmol/L (3.5-5.1); Sodium 133 mmol/L (137-145); Total Bilirubin 0.6 mg/dL (0.2-1.3); Total Protein 5.1 g/dL (6.3-8.2)
[2022-02-11] MEDS ORDERED: Potassium Replacement Protocol 1 EACH MISC MISCELLANE PRN (07:20)
[2022-02-11] MEDS: IPRATROPIUM-ALBUTEROL 3 ML NEB INHALATION SCH ×4 (07:32→19:55)
--- NOTE | 2022-02-11 07:45 | P.PN ---
Subjective Progress Note Date: 02/11/22 PROGRESS NOTE The patient is an 81-year-old female with history of atrial fibrillation, mild to moderate nonischemic cardiomyopathy who presented with atrial fibrillation and rapid ventricle response, underwent cardioversion with hindu of sinus mechanism on February 06. She has been complaining of progressive dyspnea and fatigue and there is a possibility of aspiration pneumonia. She continues to feel fatigued this morning, she has mild dyspnea. She has been coughing at times yellow sputum. She denies any chest discomfort, dizziness or palpitations. She continues to be in sinus mechanism. Her blood pressure is stable. February 09: The patient is back in atrial tachycardia with episodes of rapid ventricle response here at she denies any chest discomfort, she continues to be dyspneic. She denies any dizziness, she feels the palpitations at times. Her cough is stable. She denies any nausea or vomiting. Her blood pressure is stable. February 10: The patient feels well this morning, her breathing is stable. She continues to have a cough but improving. She is back in sinus mechanism. She denies any chest discomfort, dizziness or palpitations. She denies any nausea or vomiting. Her blood pressure is stable. She is afebrile. She had a computed tomography scan of the chest that showed left lower lobe patchy groundglass opacity with small bilateral pleural effusion February 11: The patient continues to be in atrial tachycardia with a heart rate in the 120s. She feels tired but has no chest discomfort. She has mild palpitations. She has no nausea or vomiting and no chest pain. Her cough is better. She has been started on IV Cardizem but that has not affected her heart rate significantly. She had an echocardiogram that showed ejection fraction of 50-55% with a mean gradient of 7 mmHg across the mitral valve and evidence of severe mitral regurgitation, it is unclear if the echo is done while the patient was in atrial tachycardia. Medications: Diltiazem 60 mg 3 times a day, metoprolol 100 mg twice a day, Lasix 40 mg po every 12 hours, Eliquis 2.5 mg twice a day, Farxiga 10 mg qd, Entresto 24-26 milligrams twice a day PHYSICAL EXAMINATION: Blood pressure 108/50 with a heart rate in the 50s LUNGS: Clear to auscultation with mild decrease in the breath sounds at the bases HEART: Irregular rate and rhythm, S1, S2. No S3. systolic murmur at the base, I cannot appreciate a mitral regurgitation murmur ABDOMEN: Soft, nontender, no organomegaly EXTREMETIES: No edema LAB: Potassium 3.3, BUN 23, creatinine 0.71, sodium 133 IMPRESSION: 1. Atrial fibrillation, post cardioversion, appears to be in atrial tachycardia with 2 to one conduction and persistent tachycardia 2. Progressive dyspnea with evidence of CHF and possible pneumonia. Her echoc ardiogram showed severe mitral regurgitation although not documented in the past 3. Mild to moderate nonischemic cardiomyopathy, appears to be better on the most recent echocardiogram 4. History of hypertension PLAN: 1. Continue present therapy 2. Add Multaq with close monitoring of her liver function and her pulmonary status 3. Follow renal functions 4. The patient will require evaluation for mitral valve once in sinus mechanism to see if is significant enough that intervention is needed 5. Continue beta terry and calcium channel terry Objective - Vital Signs Vital signs: Vital Signs Temp 98.7 F 02/11/22 04:00 Pulse 120 H 02/11/22 07:33 Resp 24 02/11/22 07:00 BP 135/91 02/11/22 07:00 Pulse Ox 98 02/11/22 07:35 FiO2 Intake & Output 02/10/22 02/11/22 02/11/22 18:59 06:59 18:59 Intake Total 460 400.833 Output Total 950 1425 Balance -490 -1024.167 Weight 72.3 kg 72.3 kg Intake: IV 100 100 Piperacillin-Tazobactam 3 100 100 .375 gm In Sodium Chloride 0.9% 100 ml @ 25 mls/hr IVPB Q12H [facility] Rx# :[id number] Intake, IV Titration 100.833 Amount Diltiazem 125 mg In 100.833 Sodium Chloride 0.9% 100 ml @ 10 MG/HR 10 mls/hr IV .[id number] [facility] Rx#: [id number] Oral 360 200 Output: Urine 950 1425 Other: Voiding Method Toilet Toilet - Labs CBC & Chem 7: 02/09/22 06:33 02/11/22 05:30 Labs: Abnormal Lab Results - Last 24 Hours (Table) 02/11/22 Range/Units 05:30 Sodium 133 L (137-145) mmol/L Potassium 3.3 L (3.5-5.1) mmol/L Chloride 94 L (98-107) mmol/L BUN 23 H (7-17) mg/dL Glucose 175 H (74-99) mg/dL Calcium 8.3 L (8.4-10.2) mg/dL ALT 118 H (4-34) U/L Total Protein 5.1 L (6.3-8.2) g/dL Albumin 3.0 L (3.5-5.0) g/dL Microbiology - Last 24 Hours (Table) 02/08/22 11:55 Gram Stain - Final Sputum Sputum Culture - Final
[2022-02-11] MEDS: APIXABAN 2.5 MG TABLET PO SCH ×2 (07:52→21:09)
[2022-02-11] MEDS: CYANOCOBALAMIN 500 MCG TAB PO SCH (07:52)
[2022-02-11] MEDS: DAPAGLIFLOZIN PROPANEDIOL 10 MG TABLET PO SCH (07:53)
[2022-02-11] MEDS: SACUBITRIL/VALSARTAN 24 MG-26 MG TABLET PO SCH ×2 (07:53→21:09)
[2022-02-11] MEDS: FUROSEMIDE 20 MG TAB PO SCH ×2 (07:53→15:56)
[2022-02-11] MEDS: SPIRONOLACTONE 25 MG TAB PO SCH (07:53)
[2022-02-11] MEDS: POTASSIUM BICARBONATE/CIT AC 20 MEQ TABLET.EFF NG-TUBE SCH ×2 (07:53→08:30)
[2022-02-11] MEDS: FAMOTIDINE 20 MG TAB PO SCH ×2 (07:53→21:09)
[2022-02-11] MEDS: METOPROLOL SUCCINATE (ER) 100 MG TAB.ER.24H PO SCH ×2 (07:53→21:09)
[2022-02-11] MEDS: DRONEDARONE 400 MG TAB PO SCH ×2 (08:27→15:56)
--- NOTE | 2022-02-11 10:46 | P.PN ---
Subjective Progress Note Date: 02/11/22 This is an 81-year-old female who was initially seen in the emergency room on February 02, for rapid heart rate, and palpitations. She apparently presented with atrial fibrillation and RVR. Today, she underwent cardioversion with 200 J. She was converted after only one cardioversion. Unfortunately, she seems to be very short of breath, and, I was called by cardiology for possible placement into the intensive care unit. The patient was in phase I or recovery, and I went to go see her. She appears to possibly have aspirated as he was increased density in the right chest compared to the left, and, she may also have a touch of CHF. The BMP was elevated. The patient is a lifelong nonsmoker. The patient sees primarily her family doctor, and also cardiology. She does have a history of atrial fibrillation, gastroesophageal reflux disease, hyperlipidemia, hypertension, osteoarthritis, and rheumatoid arthritis. She also has a previous history of cardiac, now with a pericardial window. She also has a history of osteoporosis, and diverticular disease. PT INR and PTT are normal. The N-t erminal proBNP was 8770. The chest x-ray showed diffuse bilateral infiltrates, a bit more dense on the right side. I did spend nurse in phase I recovery to give her Lasix I also spoke to my charge nurse in the ICU. She will need a pro- calcitonin level, chest x-ray in the morning, and labs in the morning. Progress note dated 02/07/2022. 81-year-old female room 266. Yesterday, she was seen in phase I recovery. She was initially admitted on February 02, for atrial fibrillation with rapid ve ntricular response. The patient underwent cardioversion yesterday, but afterwards, was very short of breath. The patient apparently may have aspirated, and also, may have had a touch of heart failure. Because of these 2 reasons, I moved the patient to the intensive care unit, for further monitoring and management. This morning, the patient is currently on 4 L of oxygen. She is a very wet congested cough. She's not receiving any IV fluids. She is receiving IV Lasix. Last night, she apparently had an episode of supraventricular tachycardia, followed by a sinus pause, and then bradycardia. Cardiology is aware. White count 10, hemoglobin 11.3, hematocrit 34.7, and platelet count 176,000. Sodium 131, potassium 3.4, chlorides 92, CO2 29, BUN 23, and creatinine 0.8. AST was 303. ALT was 418. Pro-calcitonin level was 0.59. N-terminal proBNP was 8770. Chest x-ray shows patchy bilateral infiltrates, which are improved on the right, and a bit more significant on the left. ,022, the patient is being seen for a follow-up. This morning, she is on 3 L of oxygen by nasal cannula. The patient presented to us with A. fib RVR. The patient underwent cardioversion and currently she is in normal sinus rhythm. A chest x-ray from today is showing some cardiomegaly and some mild pulmonary vascular congestion. This is consistent with mild CHF as the patient has interstitial pulmonary changes bilaterally. No evidence of any airspace disease or consolidations or pleural effusions. Other the patient had a cardiac catheterization on 01/19/2022 and the patient was found to have normal coronaries. Her echocardiogram that was done on 12/28/2021 showed mild LV systolic dysfunction and ejection fraction was around 40-45%. The patient had severe mitral calcification and moderate degree of mitral regurgitation and moderate degree of mitral stenosis. Otherwise, no other acute abnormalities was identified. The blood work from today shows a white cell count of 7.8 and hemoglobin of 11 and a platelet count of 162. There BUN is at 14 with a creatinine of 0.6 and the sodium level is at 133 and a potassium level is at 3.2 which is being replaced for now. The pro-calcitonin level was slightly elevated at 0.59 at the time of admission and the patient's proBNP level was 8770. Normal coagulation profile. The patient otherwise is currently on DuoNeb nebulized treatments around the clock, IV Zosyn as an empiric antibiotic coverage, and terms of her cardiomyopathy, she is on Entresto 24/25 one tablet a day, Farxiga 10 mg by mouth daily, and Lasix 40 mg by mouth twice a day. The patient is on metoprolol 100 mg XL 1 tablet a day and oral Cardizem 30 mg by mouth 3 times a day. She is on long-term anticoagulation with Eliquis 02/09/2022, the patient is being seen for a follow-up. This morning, the patient on oxygen at 2 L per minute nasal cannula. The patient had another episode of atrial fibrillation with RVR and the heart rate went as high as 190. Note that during yesterday's evaluation, the patient was in a normal sinus rhythm and she was in a sinus rhythm throughout the day. Cardiology was informed and the patient was given her morning metoprolol and her heart rate currently is around 110. It is irregular and the patient remains in atrial fibrillation. The patient remains on a combination of metoprolol 100 mg XL 1 tablet today and the patient is also on Cardizem 30 mg by mouth 3 times a day and the Cardizem dose was increased up to 60 mg by mouth 3 times a day. The patient remains on anticoagulation with a request. On yesterday's evaluation, I was concerned of an active taken bronchitis as the patient is a congested cough and wheeze. The patient was already on bronchodilators. I added IV Solu-Medrol dose of 40 mg every 6 hours and the patient remains on IV Zosyn. Repeat chest x-ray from today is concerning of a right lung pneumonia/loculated effusion. Like to obtain a contrast enhanced CAT scan of the chest. Otherwise, the white cell count is low at 9.0 hemoglobin 12.6. Sodium is at 135 with a potassium level of 3.4, BUN is at 50 with a creatinine of 0.6. A repeat COVID 19 testing was done yesterday and the levels were negative. LFTs were elevated yesterday and without improving upon serial monitoring. The patient is been taking Robitussin-DM for cough and congestion. 02/10/2022, the patient is doing well. Cough and congestion his settled down significantly. I reviewed the CAT scan of the chest that was done yesterday. It showed small bilateral pleural effusions and some limited atelectatic changes in lung bases and some postinfectious groundglass changes. Is very minimal and of no major concern. No evidence of any malignancy. There was a hepatic cyst measuring 1.7 cm in size. Sputum cultures are negative. The patient's blood work shows no major electrode disturbance. Potassium is at 3.8. He is at 20 with a creatinine of 0.7. Of importance is that the patient converted back into normal sinus rhythm. For this point as cardioversion. The patient is currently on a combination of metoprolol and Cardizem pH is on long-term and to coagulation with a request. She is still on bronchodilators and she is also on systemic steroids. Her CHF as well compensated at this point in time. She has no specific complaints. She is on 2 L O2 nasal cannula and she'll be weaned down to room air oxygen. 02/11/2022, seeing the patient for the follow-up. Overall respiratory status is stable. Nevertheless, yesterday, yet again, the patient went into atrial fibrillation with RVR. She was started on a Cardizem drip and currently the patient is on Cardizem drip at 10 mg an hour in addition to metoprolol XL 100 mg twice a day. Her heart rate currently is controlled. Respiratory status is stable. I reviewed her CAT scan from yesterday and there is no clear indication for pneumonia. 2 patient was treated with bronchodilators and steroids regarding some underlying tracheal bronchitis and she remains on Solu-Medrol 40 mg every 6 hours. She is also on IV Zosyn. Anticoagulation is with elevated cholesterol 0.5 mg by mouth twice a day. In terms of her labs, potassium has been replaced and is currently up to 4. TMs at 23 with a creatinine of 0.7. Sodium is at 133. No other significant abnormalities have been noted. Echocardiogram was repeated yesterday and the patient was found to have normal LV, mitral annular calcification with severe mitral regurgitation and moderate degree of mitral stenosis with a peak gradient of 29 and immediately gradient of 7. Objective - Vital Signs Vital signs: Vital Signs Temp 98.1 F 02/11/22 08:00 Pulse 117 H 02/11/22 10:00 Resp 16 02/11/22 10:00 BP 106/74 02/11/22 10:00 Pulse Ox 92 L 02/11/22 10:00 FiO2 Intake & Output 02/10/22 02/11/22 02/11/22 18:59 06:59 18:59 Intake Total 460 400.833 Output Total 950 1425 300 Balance -490 -1024.167 -300 Weight 72.3 kg 72.3 kg Intake: IV 100 100 Piperacillin-Tazobactam 3 100 100 .375 gm In Sodium Chloride 0.9% 100 ml @ 25 mls/hr IVPB Q12H [facility] Rx# :[id number] Intake, IV Titration 100.833 Amount Diltiazem 125 mg In 100.833 Sodium Chloride 0.9% 100 ml @ 10 MG/HR 10 mls/hr IV .[id number] [facility] Rx#: [id number] Oral 360 200 Output: Urine 950 1425 300 Other: Voiding Method Toilet Toilet Toilet - Exam No acute distress, oriented 3. Patient is currently on RA HEENT examination is grossly unremarkable. Neck supple. Full range of motion. No adenopathy thyromegaly or neck vein distention. Cardiovascular examination reveals regular rhythm rate. S1-S2 normal. No S3 or S4. No discernible murmur noted. Lungs sounds are diminished bilaterally and there is marked improvement in the bronchospasm wheezing that was appreciated earlier. Some limited rhonchi and wheeze is still appreciated. Abdomen soft bowel sounds are heard. No masses or tenderness. Extremities are intact. No cyanosis clubbing or edema. Skin is without rash or lesion. Neurologic Neurologically, the patient is awake and alert and the patient does not have any focal neurological deficit. Cranial nerves are essentially intact. - Labs CBC & Chem 7: 02/09/22 06:33 02/11/22 10:00 Labs: Abnormal Lab Results - Last 24 Hours (Table) 02/11/22 Range/Units 05:30 Sodium 133 L (137-145) mmol/L Potassium 3.3 L (3.5-5.1) mmol/L Chloride 94 L (98-107) mmol/L BUN 23 H (7-17) mg/dL Glucose 175 H (74-99) mg/dL Calcium 8.3 L (8.4-10.2) mg/dL ALT 118 H (4-34) U/L Total Protein 5.1 L (6.3-8.2) g/dL Albumin 3.0 L (3.5-5.0) g/dL Microbiology - Last 24 Hours (Table) 02/08/22 11:55 Gram Stain - Final Sputum Sputum Culture - Final Assessment and Plan Plan: Atrial fibrillation/RVR, with cardioversion, 02/06/2022. The patient continues to have episodes of A. fib RVR, last episode was last night and the patient's Coumadin a Cardizem drip at 10 L an hour in addition to Toprol and I will request. Cardiology evaluated the patient patient was started on Multaq 400 mg by mouth twice a day. Valvular heart disease with mitral valve involvement of mitral valve stenosis acute bronchitis with reactive bronchospasm wheezing, improving Small bilateral pleural effusions History of chronic atrial fibrillation. The patient received previous cardiac ablation and the patient is having paroxysmal atrial fibrillation History of hypertension. History of hyperlipidemia. History of rheumatoid arthritis. Previous history of pericardial window and this was done post cardiac ablation and iatrogenic pericardial effusion requiring a window. History of osteoporosis. Previous history of cardioversions and electrophysiologic studies with ablation. Plan: Currently on room air oxygen\discontinued IV Zosyn and start the patient Augmentin 875 mg twice a day to complete a seven-day course DC Solu-Medrol and put the patient prednisone burst taper Continue using incentive spirometer Management of atrial fibrillation per cardiology. The patient is having more so than atrial tachycardia today's evaluation . The patient is currently on a Cardizem drip at 10 mg an hour and the patient is also on Toprol-XL, and Multaq Obtain a contrast enhanced CAT scan of the chest and this was reviewed and the findings are essentially benign. Limited postinfectious changes. Very small pleural effusions. Continue using incentive spirometer Cardiac medications are all appropriate and the patient is still maintained on diuretics, still on a combination of Aldactone and Lasix We'll continue to follow make further recommendations based on her progress. May transfer to [facility]
[2022-02-11] MEDS: predniSONE 20 MG TAB PO SCH (13:07)
--- NOTE | 2022-02-11 19:23 | P.PN ---
Subjective 81-year-old lady with past medical history significant for atrial fibrillation, hyperlipidemia, hypertension who presented to the ER because of palpitations. She was all right yesterday night when she went to bed at which time her apple watch notified of her heart rate being in the 170s. At that time patient was also complaining of palpitations. Patient also complaining of dizziness. Patient was brought to the ER of [facility]. Initial EKG showed SVT versus atrial tachycardia with heart rate 170s. Patient was started on IV Card izem drip and admitted to hospitalist service. 02/06/2022 Patient is seen and evaluated in room at bedside; remains in atrial fibrillation with heart rate ranging between 140s to 160s Vital signs reveal temperature of 97.9, pulse 160, respiration 24 and blood pressure 127/71 - Patient remains on beta blockers and calcium channel blockers; was intolerant of amiodarone which was discontinued Cardiology planning to take patient for cardioversion given uncontrolled heart rate and patient being symptomatic 02/07/2022 Patient is seen and evaluated in ICU; patient underwent cardioversion yesterday after which went into acute respiratory distress and was transferred to ICU for possible aspiration pneumonia/fluid overload -- Patient has an episode of SVT last night which is followed by sinus positive and bradycardia; cardiology is on board and recommending to discontinue Cardizem; and Coreg patient is placed on metoprolol succinate 50 mg twice a day; amlodipine and Dyazide at placed on hold due to softer blood pressures White count 10, hemoglobin 11.3, hematocrit 34.7, and platelet count 176,000. Sodium 131, potassium 3.4, chlorides 92, CO2 29, BUN 23, and creatinine 0.8. AST was 303. ALT was 418. Pro-calcitonin level was 0.59. N-terminal proBNP was 8770. Chest x-ray shows patchy bilateral infiltrates, which are improved on the right, and a bit more significant on the left. Patient has been placed on bronchodilator nebulizer treatments; 4 times a day and when necessary; has been receiving and has been started on IV Zosyn given infiltrates on chest x-ray and pro-calcitonin trending up 02/08/2022 This is a pleasant 81 old female who was admitted with supraventricular tachy cardia versus atrial tachycardia and in view of her chronic history of atrial fibrillation she underwent cardioversion ablation on 02/06. Patient currently heart rate is better controlled, actually she was slightly bradycardic and Cardizem dose was lowered to 30 mg 3 times a day. Also patient kept on metoprolol 100 mg. IV Lasix switched to oral dose of 40 mg twice daily and started on entresto Today she still feeling short of breath and tachypnea. She is not on home oxygen and currently she wears 4 L/m. She still have cough with little phlegm. She says she has chronic and steady gait. She's been evaluated by neurologist patient had low appetite but no diarrhea She remains on Zosyn and she still tachypnea. Chest x-ray showing bilateral atypical pneumonia versus CHF. ProBNP and pro-calcitonin both are elevated 8770 and 0.59 respectively. Patient is on home dose of leg was 2.5 mg. We will check a swallow evaluation and bladder scan. 02/09/2022 Patient dyspnea is a slightly better, he still lethargic, his cough is better also Robitussin. He has low appetite but no diarrhea. He is on 2 L oxygen via nasal cannula. Application Dba R following the patient for cardiac arrhythmia, he has chronic atrial fibrillation status post ablation and developed atrial tachycardia, currently his heart rate is in the 50s. Also had CT of the chest showing left lower lobe inflammatory process is s uspected with tree-in-bud appearance. Patient currently kept on Zosyn. Also he is on Eliquis and metoprolol per mortgage loan originator. Also he is on Cardizem per mortgage loan originator. Liver ultrasound showing hepatocellular disease and an anechoic area near IVC 1.8 x 2.4 x 1.4 cm, liver enzymes are trending down. The patient started on IV Solu-Medrol for possible COPD exacerbation 02/11/2012 Patient states improving in all of her symptoms occluding the dyspnea coughing. She is eating better today with no diarrhea. She was on 2 L oxygen via nasal cannula in the morning. No GI or urinary symptoms. Echocardiogram today showing ejection fraction of 50-55% with severe mitral regurgitation and moderate mitral stenosis. Patient was placed on Cardizem drip. Currently heart rate is more than 100-112. Cardiology been following her closely. She is currently on Lasix 20 mg twice daily. Aldactone 25 mg IV. Heart rate was in the 50s yesterday. We will defer to cardiology for management of cardiac arrhythmia. Patient remains on Zosyn, IV Solu-Medrol, liquids 2.5 mg and other cardiac medications Also patient has elevated liver enzymes trending down, patient will benefit from GI evaluation, no GI service in this facility during this week 02/11/2022 today she's very active and pleasant and sitting up at the age of the bed and denies chest pain or dyspnea and she feels comfortable and not in distress Never the less her heart is still uncontrolled despite several treatment with metoprolol and Cardizem. Currently she was placed from oral dose and the Cardizem drip 10 mg per hour. Heart rate is around 117, asymptomatic. However her pulmonary problem is improving, her pneumonia is improving as well and currently she is on Augmentin and prednisone 40 mg. He will need evaluation for her severe mitral regurgitation and moderate mitral stenosis once rhythm is controlled today patient is known to be [facility] Objective - Vital Signs Vital signs: Vital Signs Temp 98.1 F 02/11/22 08:00 Pulse 116 H 02/11/22 11:10 Resp 16 02/11/22 10:00 BP 106/74 02/11/22 10:00 Pulse Ox 92 L 02/11/22 10:00 FiO2 Intake & Output 02/10/22 02/11/22 02/11/22 18:59 06:59 18:59 Intake Total 460 400.833 Output Total 950 1425 300 Balance -490 -1024.167 -300 Weight 72.3 kg 72.3 kg Intake: IV 100 100 Piperacillin-Tazobactam 3 100 100 .375 gm In Sodium Chloride 0.9% 100 ml @ 25 mls/hr IVPB Q12H [facility] Rx# :[id number] Intake, IV Titration 100.833 Amount Diltiazem 125 mg In 100.833 Sodium Chloride 0.9% 100 ml @ 10 MG/HR 10 mls/hr IV .[id number] [facility] Rx#: [id number] Oral 360 200 Output: Urine 950 1425 300 Other: Voiding Method Toilet Toilet Toilet - Exam GENERAL: The patient is alert and oriented x3, not in any acute distress. Well developed, well nourished. HEENT: Pupils are round and equally reacting to light. EOMI. No scleral icterus. No conjunctival pallor. Normocephalic, atraumatic. No pharyngeal erythema. No thyromegaly. CARDIOVASCULAR: S1 and S2 present. No murmurs, rubs, or gallops. PULMONARY: Chest is clear to auscultation, no wheezing or crackles. ABDOMEN: Soft, nontender, nondistended, normoactive bowel sounds. No palpable organomegaly. MUSCULOSKELETAL: No joint swelling or deformity. EXTREMITIES: No cyanosis, clubbing, or pedal edema. NEUROLOGICAL: Gross neurological examination did not reveal any focal deficits. SKIN: No rashes. no petechiae. - Labs CBC & Chem 7: 02/09/22 06:33 02/11/22 10:00 Labs: Abnormal Lab Results - Last 24 Hours (Table) 02/11/22 Range/Units 05:30 Sodium 133 L (137-145) mmol/L Potassium 3.3 L (3.5-5.1) mmol/L Chloride 94 L (98-107) mmol/L BUN 23 H (7-17) mg/dL Glucose 175 H (74-99) mg/dL Calcium 8.3 L (8.4-10.2) mg/dL ALT 118 H (4-34) U/L Total Protein 5.1 L (6.3-8.2) g/dL Albumin 3.0 L (3.5-5.0) g/dL Microbiology - Last 24 Hours (Table) 02/08/22 11:55 Gram Stain - Final Sputum Sputum Culture - Final Assessment and Plan Assessment: SVT with short RP vs atrial tachycardia Paroxysmal atrial fibrillation status post cardioversion on 02/06, on Eliquis Possible left lower lobe pneumonia, with tree-in-bud appearance Elevated liver enzymes Acute COPD exacerbation Borderline low vitamin B12 Hypertension GERD Dyslipidemia History of osteoporosis Unsteady gait Plan: this is a pleasant 81-year-old female who presents with SVT/A. fib and elevated liver enzymes Continue with Cardizem 30 mg, metoprolol. Continue with the liquids Application Dba on the case Continue with antibiotics Zosyn with pulmonary team on the case as well. Continue with vitamin B12 replacement therapy Continue with IV Solu-Medrol Neurology evaluated The patient and ordered vitamin B12, folate, HbA1c, orthostatic vitals. They recommended imaging such as CT or MRI Brain but the patient refused. Labs and medication were reviewed.. Continue same treatment. Continue with symptomatic treatment. Resume home medication. Monitor lytes and vitals. DVT and GI prophylaxis. Further recommendations as per clinical course of the patient DVT prophylaxis: eliquis GI Prophylaxis: Pepcid PT/OT: Pending Prognosis is guarded
[2022-02-11] MEDS: AMOXIC-POT CLAV 875-125MG 1 EACH TAB PO SCH (21:09)
[2022-02-12] MEDS: DILTIAZEM 125 MG in SODIUM CHLORIDE 0.9% 100 ML IV SCH (06:00)
[2022-02-12] MEDS: DRONEDARONE 400 MG TAB PO SCH ×2 (06:00→16:44)
[2022-02-12] MEDS: IPRATROPIUM-ALBUTEROL 3 ML NEB INHALATION SCH ×4 (07:28→19:37)
[2022-02-12] MEDS: FUROSEMIDE 20 MG TAB PO SCH ×2 (09:39→16:44)
[2022-02-12] MEDS: AMOXIC-POT CLAV 875-125MG 1 EACH TAB PO SCH ×2 (09:39→21:30)
[2022-02-12] MEDS: predniSONE 20 MG TAB PO SCH (09:39)
[2022-02-12] MEDS: FAMOTIDINE 20 MG TAB PO SCH ×2 (09:39→21:30)
[2022-02-12] MEDS: CYANOCOBALAMIN 500 MCG TAB PO SCH (09:39)
[2022-02-12] MEDS: APIXABAN 2.5 MG TABLET PO SCH ×2 (09:39→21:30)
[2022-02-12] MEDS: METOPROLOL SUCCINATE (ER) 100 MG TAB.ER.24H PO SCH ×2 (09:39→21:30)
[2022-02-12] MEDS: SPIRONOLACTONE 25 MG TAB PO SCH (09:39)
[2022-02-12] MEDS: guaiFENesin-DM 100-10MG/5ML 10 ML CUP PO SCH ×2 (09:39→21:29)
[2022-02-12] MEDS: SACUBITRIL/VALSARTAN 24 MG-26 MG TABLET PO SCH ×2 (09:40→21:30)
[2022-02-12] MEDS: DAPAGLIFLOZIN PROPANEDIOL 10 MG TABLET PO SCH ×2 (09:40→21:29)
--- NOTE | 2022-02-12 10:55 | P.PN ---
Subjective 81-year-old lady with past medical history significant for atrial fibrillation, hyperlipidemia, hypertension who presented to the ER because of palpitations. She was all right yesterday night when she went to bed at which time her apple watch notified of her heart rate being in the 170s. At that time patient was also complaining of palpitations. Patient also complaining of dizziness. Patient was brought to the ER of [facility]. Initial EKG showed SVT versus atrial tachycardia with heart rate 170s. Patient was started on IV Card izem drip and admitted to hospitalist service. 02/06/2022 Patient is seen and evaluated in room at bedside; remains in atrial fibrillation with heart rate ranging between 140s to 160s Vital signs reveal temperature of 97.9, pulse 160, respiration 24 and blood pressure 127/71 - Patient remains on beta blockers and calcium channel blockers; was intolerant of amiodarone which was discontinued Cardiology planning to take patient for cardioversion given uncontrolled heart rate and patient being symptomatic 02/07/2022 Patient is seen and evaluated in ICU; patient underwent cardioversion yesterday after which went into acute respiratory distress and was transferred to ICU for possible aspiration pneumonia/fluid overload -- Patient has an episode of SVT last night which is followed by sinus positive and bradycardia; cardiology is on board and recommending to discontinue Cardizem; and Coreg patient is placed on metoprolol succinate 50 mg twice a day; amlodipine and Dyazide at placed on hold due to softer blood pressures White count 10, hemoglobin 11.3, hematocrit 34.7, and platelet count 176,000. Sodium 131, potassium 3.4, chlorides 92, CO2 29, BUN 23, and creatinine 0.8. AST was 303. ALT was 418. Pro-calcitonin level was 0.59. N-terminal proBNP was 8770. Chest x-ray shows patchy bilateral infiltrates, which are improved on the right, and a bit more significant on the left. Patient has been placed on bronchodilator nebulizer treatments; 4 times a day and when necessary; has been receiving and has been started on IV Zosyn given infiltrates on chest x-ray and pro-calcitonin trending up 02/08/2022 This is a pleasant 81 old female who was admitted with supraventricular tachy cardia versus atrial tachycardia and in view of her chronic history of atrial fibrillation she underwent cardioversion ablation on 02/06. Patient currently heart rate is better controlled, actually she was slightly bradycardic and Cardizem dose was lowered to 30 mg 3 times a day. Also patient kept on metoprolol 100 mg. IV Lasix switched to oral dose of 40 mg twice daily and started on entresto Today she still feeling short of breath and tachypnea. She is not on home oxygen and currently she wears 4 L/m. She still have cough with little phlegm. She says she has chronic and steady gait. She's been evaluated by neurologist patient had low appetite but no diarrhea She remains on Zosyn and she still tachypnea. Chest x-ray showing bilateral atypical pneumonia versus CHF. ProBNP and pro-calcitonin both are elevated 8770 and 0.59 respectively. Patient is on home dose of leg was 2.5 mg. We will check a swallow evaluation and bladder scan. 02/09/2022 Patient dyspnea is a slightly better, he still lethargic, his cough is better also Robitussin. He has low appetite but no diarrhea. He is on 2 L oxygen via nasal cannula. Painter Decorator R following the patient for cardiac arrhythmia, he has chronic atrial fibrillation status post ablation and developed atrial tachycardia, currently his heart rate is in the 50s. Also had CT of the chest showing left lower lobe inflammatory process is s uspected with tree-in-bud appearance. Patient currently kept on Zosyn. Also he is on Eliquis and metoprolol per automobile mechanic. Also he is on Cardizem per automobile mechanic. Liver ultrasound showing hepatocellular disease and an anechoic area near IVC 1.8 x 2.4 x 1.4 cm, liver enzymes are trending down. The patient started on IV Solu-Medrol for possible COPD exacerbation 02/11/2012 Patient states improving in all of her symptoms occluding the dyspnea coughing. She is eating better today with no diarrhea. She was on 2 L oxygen via nasal cannula in the morning. No GI or urinary symptoms. Echocardiogram today showing ejection fraction of 50-55% with severe mitral regurgitation and moderate mitral stenosis. Patient was placed on Cardizem drip. Currently heart rate is more than 100-112. Cardiology been following her closely. She is currently on Lasix 20 mg twice daily. Aldactone 25 mg IV. Heart rate was in the 50s yesterday. We will defer to cardiology for management of cardiac arrhythmia. Patient remains on Zosyn, IV Solu-Medrol, liquids 2.5 mg and other cardiac medications Also patient has elevated liver enzymes trending down, patient will benefit from GI evaluation, no GI service in this facility during this week 02/11/2022 today she's very active and pleasant and sitting up at the age of the bed and denies chest pain or dyspnea and she feels comfortable and not in distress Never the less her heart is still uncontrolled despite several treatment with metoprolol and Cardizem. Currently she was placed from oral dose and the Cardizem drip 10 mg per hour. Heart rate is around 117, asymptomatic. However her pulmonary problem is improving, her pneumonia is improving as well and currently she is on Augmentin and prednisone 40 mg. He will need evaluation for her severe mitral regurgitation and moderate mitral stenosis once rhythm is controlled today patient is known to be transferred to select unit 02/12/2022 Patient is improving each day and slowly, her dyspnea and coughing are better. She has no specific complaints today However she still tachycardic with her trying to 117-125 and she remains on Cardizem drip. Again I informed the patient about her annual Area in the liver that needs to be addressed as an outpatient and recommended for her to follow-up with Dr. Kent, in 1 to 2 weeks after discharge and she verbalized understanding and acceptance She denies any abdominal pain today. She is also on liquids Antibiotics are adjusted and to Augmentin and prednisone 40 mg Objective - Vital Signs Vital signs: Vital Signs Temp 98.0 F 02/12/22 08:00 Pulse 125 H 02/12/22 08:00 Resp 16 02/12/22 08:00 BP 100/70 02/12/22 08:00 Pulse Ox 95 02/12/22 08:00 FiO2 Intake & Output 02/11/22 02/12/22 02/12/22 18:59 06:59 18:59 Intake Total 125 125 Output Total 800 Balance -675 125 Intake: Intake, IV Titration 125 125 Amount Diltiazem 125 mg In 125 125 Sodium Chloride 0.9% 100 ml @ 10 MG/HR 10 mls/hr IV .[id number] PHUONG Rx#: [id number] Output: Urine 800 Other: Voiding Method Toilet Toilet Toilet # Voids 1 - Exam GENERAL: The patient is alert and oriented x3, not in any acute distress. Well developed, well nourished. HEENT: Pupils are round and equally reacting to light. EOMI. No scleral icterus. No conjunctival pallor. Normocephalic, atraumatic. No pharyngeal erythema. No thyromegaly. CARDIOVASCULAR: S1 and S2 present. No murmurs, rubs, or gallops. PULMONARY: Chest is clear to auscultation, no wheezing or crackles. ABDOMEN: Soft, nontender, nondistended, normoactive bowel sounds. No palpable organomegaly. MUSCULOSKELETAL: No joint swelling or deformity. EXTREMITIES: No cyanosis, clubbing, or pedal edema. NEUROLOGICAL: Gross neurological examination did not reveal any focal deficits. SKIN: No rashes. no petechiae. - Labs CBC & Chem 7: 02/09/22 06:33 02/11/22 10:00 Assessment and Plan Assessment: SVT with short RP vs atrial tachycardia Paroxysmal atrial fibrillation status post cardioversion on 02/06, on Eliquis Possible left lower lobe pneumonia, with tree-in-bud appearance Elevated liver enzymes Acute COPD exacerbation Borderline low vitamin B12 Hypertension GERD Dyslipidemia History of osteoporosis Unsteady gait Plan: this is a pleasant 81-year-old female who presents with SVT/A. fib and elevated liver enzymes Continue with Cardizem 30 mg, metoprolol. Continue with the liquids Painter Decorator on the case Continue with antibiotics Zosyn with pulmonary team on the case as well. Continue with vitamin B12 replacement therapy Continue with IV Solu-Medrol Neurology evaluated The patient and ordered vitamin B12, folate, HbA1c, orthostatic vitals. They recommended imaging such as CT or MRI Brain but the patient refused. Labs and medication were reviewed.. Continue same treatment. Continue with symptomatic treatment. Resume home medication. Monitor lytes and vitals. DVT and GI prophylaxis. Further recommendations as per clinical course of the patient DVT prophylaxis: eliquis GI Prophylaxis: Pepcid PT/OT: Pending Prognosis is guarded
--- NOTE | 2022-02-12 12:35 | P.PN ---
Subjective Progress Note Date: 02/12/22 HISTORY OF PRESENT ILLNESS: The patient is an 81-year-old female with history of atrial fibrillation, mild to moderate nonischemic cardiomyopathy who presented with atrial fibrillation and rapid ventricle response, underwent cardioversion with yazdanism of sinus mechanism on February 06. She has been complaining of progressive dyspnea and fatigue and there is a possibility of aspiration pneumonia. She continues to feel fatigued this morning, she has mild dyspnea. She has been coughing at times yellow sputum. She denies any chest discomfort, dizziness or palpitations. She continues to be in sinus mechanism. Her blood pressure is stable. February 09: The patient is back in atrial tachycardia with episodes of rapid ventricle response here at she denies any chest discomfort, she continues to be dyspneic. She denies any dizziness, she feels the palpitations at times. Her cough is stable. She denies any nausea or vomiting. Her blood pressure is stable. February 10: The patient feels well this morning, her breathing is stable. She continues to have a cough but improving. She is back in sinus mechanism. She denies any chest discomfort, dizziness or palpitations. She denies any nausea or vomiting. Her blood pressure is stable. She is afebrile. She had a computed tomography scan of the chest that showed left lower lobe patchy groundglass opacity with small bilateral pleural effusion February 11: The patient continues to be in atrial tachycardia with a heart rate in the 120s. She feels tired but has no chest discomfort. She has mild palpitations. She has no nausea or vomiting and no chest pain. Her cough is better. She has been started on IV Cardizem but that has not affected her heart rate significantly. She had an echocardiogram that showed ejection fraction of 50-55% with a mean gradient of 7 mmHg across the mitral valve and evidence of severe mitral regurgitation, it is unclear if the echo is done while the patient was in atrial tachycardia. 02/12/2022 Patient examined this morning at the bedside. Patient denies chest pain or pressure prior to denies shortness of breath. She remains in atrial tachycardia this morning with a heart rate in the 120s. She is currently on IV Cardizem at 10 mg an hour. Vital signs are stable. PHYSICAL EXAM: VITAL SIGNS: Reviewed. GENERAL: Well-developed in no acute distress. NECK: Supple. No JVD or thyromegaly LUNGS: Respirations even and unlabored. Lungs essentially clear to auscultation bilaterally. HEART: Regular rate and rhythm. S1 and S2 heard. EXTREMITIES: Normal range of motion. No clubbing or cyanosis. Peripheral pulses intact. No lower extremity edema ASSESSMENT: 1. Atrial fibrillation, post cardioversion, appears to be in atrial tachycardia with 2 to one conduction and persistent tachycardia 2. Progressive dyspnea with evidence of CHF and possible pneumonia. Her echocardiogram showed severe mitral regurgitation although not documented in the past 3. Mild to moderate nonischemic cardiomyopathy, appears to be better on the most recent echocardiogram 4. History of hypertension 5. History of ablation 2 PLAN: Continue current cardiac medications Continue telemetry monitoring Discontinue IV Cardizem Begin oral Cardizem 60 mg 3 times a day Continue [place] Dr. Narvaez recommending CV tomorrow. Dr. Alexander to speak with Dr. Narvaez regarding this. Further recommendations pending. Will make patient NPO at midnight Further recommendations pending patient course Patient to follow up outpatient with Dr. Narvaez Nurse practitioner note has been reviewed by physician. Signing provider agrees with the documented findings, assessment, and plan of care. Objective - Vital Signs Vital signs: Vital Signs Temp 97.5 F L 02/12/22 11:58 Pulse 119 H 02/12/22 11:58 Resp 17 02/12/22 11:58 BP 104/72 02/12/22 11:58 Pulse Ox 98 02/12/22 11:58 FiO2 Intake & Output 02/11/22 02/12/22 02/12/22 18:59 06:59 18:59 Intake Total 125 125 Output Total 800 Balance -675 125 Intake: Intake, IV Titration 125 125 Amount Diltiazem 125 mg In 125 125 Sodium Chloride 0.9% 100 ml @ 10 MG/HR 10 mls/hr IV .[id number] PHUONG Rx#: [id number] Output: Urine 800 Other: Voiding Method Toilet Toilet Toilet # Voids 1 - Labs CBC & Chem 7: 02/09/22 06:33 02/11/22 10:00
--- NOTE | 2022-02-12 13:22 | P.PN ---
Subjective Progress Note Date: 02/12/22 This is an 81-year-old female who was initially seen in the emergency room on February 02, for rapid heart rate, and palpitations. She apparently presented with atrial fibrillation and RVR. Today, she underwent cardioversion with 200 J. She was converted after only one cardioversion. Unfortunately, she seems to be very short of breath, and, I was called by cardiology for possible placement into the intensive care unit. The patient was in phase I or recovery, and I went to go see her. She appears to possibly have aspirated as he was increased density in the right chest compared to the left, and, she may also have a touch of CHF. The BMP was elevated. The patient is a lifelong nonsmoker. The patient sees primarily her family doctor, and also cardiology. She does have a history of atrial fibrillation, gastroesophageal reflux disease, hyperlipidemia, hypertension, osteoarthritis, and rheumatoid arthritis. She also has a previous history of cardiac, now with a pericardial window. She also has a history of osteoporosis, and diverticular disease. PT INR and PTT are normal. The N-t erminal proBNP was 8770. The chest x-ray showed diffuse bilateral infiltrates, a bit more dense on the right side. I did spend nurse in phase I recovery to give her Lasix I also spoke to my charge nurse in the ICU. She will need a pro- calcitonin level, chest x-ray in the morning, and labs in the morning. Progress note dated 02/07/2022. 81-year-old female room 266. Yesterday, she was seen in phase I recovery. She was initially admitted on February 02, for atrial fibrillation with rapid ve ntricular response. The patient underwent cardioversion yesterday, but afterwards, was very short of breath. The patient apparently may have aspirated, and also, may have had a touch of heart failure. Because of these 2 reasons, I moved the patient to the intensive care unit, for further monitoring and management. This morning, the patient is currently on 4 L of oxygen. She is a very wet congested cough. She's not receiving any IV fluids. She is receiving IV Lasix. Last night, she apparently had an episode of supraventricular tachycardia, followed by a sinus pause, and then bradycardia. Cardiology is aware. White count 10, hemoglobin 11.3, hematocrit 34.7, and platelet count 176,000. Sodium 131, potassium 3.4, chlorides 92, CO2 29, BUN 23, and creatinine 0.8. AST was 303. ALT was 418. Pro-calcitonin level was 0.59. N-terminal proBNP was 8770. Chest x-ray shows patchy bilateral infiltrates, which are improved on the right, and a bit more significant on the left. ,022, the patient is being seen for a follow-up. This morning, she is on 3 L of oxygen by nasal cannula. The patient presented to us with A. fib RVR. The patient underwent cardioversion and currently she is in normal sinus rhythm. A chest x-ray from today is showing some cardiomegaly and some mild pulmonary vascular congestion. This is consistent with mild CHF as the patient has interstitial pulmonary changes bilaterally. No evidence of any airspace disease or consolidations or pleural effusions. Other the patient had a cardiac catheterization on 01/19/2022 and the patient was found to have normal coronaries. Her echocardiogram that was done on 12/28/2021 showed mild LV systolic dysfunction and ejection fraction was around 40-45%. The patient had severe mitral calcification and moderate degree of mitral regurgitation and moderate degree of mitral stenosis. Otherwise, no other acute abnormalities was identified. The blood work from today shows a white cell count of 7.8 and hemoglobin of 11 and a platelet count of 162. There BUN is at 14 with a creatinine of 0.6 and the sodium level is at 133 and a potassium level is at 3.2 which is being replaced for now. The pro-calcitonin level was slightly elevated at 0.59 at the time of admission and the patient's proBNP level was 8770. Normal coagulation profile. The patient otherwise is currently on DuoNeb nebulized treatments around the clock, IV Zosyn as an empiric antibiotic coverage, and terms of her cardiomyopathy, she is on Entresto 24/25 one tablet a day, Farxiga 10 mg by mouth daily, and Lasix 40 mg by mouth twice a day. The patient is on metoprolol 100 mg XL 1 tablet a day and oral Cardizem 30 mg by mouth 3 times a day. She is on long-term anticoagulation with Eliquis 02/09/2022, the patient is being seen for a follow-up. This morning, the patient on oxygen at 2 L per minute nasal cannula. The patient had another episode of atrial fibrillation with RVR and the heart rate went as high as 190. Note that during yesterday's evaluation, the patient was in a normal sinus rhythm and she was in a sinus rhythm throughout the day. Cardiology was informed and the patient was given her morning metoprolol and her heart rate currently is around 110. It is irregular and the patient remains in atrial fibrillation. The patient remains on a combination of metoprolol 100 mg XL 1 tablet today and the patient is also on Cardizem 30 mg by mouth 3 times a day and the Cardizem dose was increased up to 60 mg by mouth 3 times a day. The patient remains on anticoagulation with a request. On yesterday's evaluation, I was concerned of an active taken bronchitis as the patient is a congested cough and wheeze. The patient was already on bronchodilators. I added IV Solu-Medrol dose of 40 mg every 6 hours and the patient remains on IV Zosyn. Repeat chest x-ray from today is concerning of a right lung pneumonia/loculated effusion. Like to obtain a contrast enhanced CAT scan of the chest. Otherwise, the white cell count is low at 9.0 hemoglobin 12.6. Sodium is at 135 with a potassium level of 3.4, BUN is at 50 with a creatinine of 0.6. A repeat COVID 19 testing was done yesterday and the levels were negative. LFTs were elevated yesterday and without improving upon serial monitoring. The patient is been taking Robitussin-DM for cough and congestion. 02/10/2022, the patient is doing well. Cough and congestion his settled down significantly. I reviewed the CAT scan of the chest that was done yesterday. It showed small bilateral pleural effusions and some limited atelectatic changes in lung bases and some postinfectious groundglass changes. Is very minimal and of no major concern. No evidence of any malignancy. There was a hepatic cyst measuring 1.7 cm in size. Sputum cultures are negative. The patient's blood work shows no major electrode disturbance. Potassium is at 3.8. He is at 20 with a creatinine of 0.7. Of importance is that the patient converted back into normal sinus rhythm. For this point as cardioversion. The patient is currently on a combination of metoprolol and Cardizem pH is on long-term and to coagulation with a request. She is still on bronchodilators and she is also on systemic steroids. Her CHF as well compensated at this point in time. She has no specific complaints. She is on 2 L O2 nasal cannula and she'll be weaned down to room air oxygen. 02/11/2022, seeing the patient for the follow-up. Overall respiratory status is stable. Nevertheless, yesterday, yet again, the patient went into atrial fibrillation with RVR. She was started on a Cardizem drip and currently the patient is on Cardizem drip at 10 mg an hour in addition to metoprolol XL 100 mg twice a day. Her heart rate currently is controlled. Respiratory status is stable. I reviewed her CAT scan from yesterday and there is no clear indication for pneumonia. 2 patient was treated with bronchodilators and steroids regarding some underlying tracheal bronchitis and she remains on Solu-Medrol 40 mg every 6 hours. She is also on IV Zosyn. Anticoagulation is with elevated cholesterol 0.5 mg by mouth twice a day. In terms of her labs, potassium has been replaced and is currently up to 4. TMs at 23 with a creatinine of 0.7. Sodium is at 133. No other significant abnormalities have been noted. Echocardiogram was repeated yesterday and the patient was found to have normal LV, mitral annular calcification with severe mitral regurgitation and moderate degree of mitral stenosis with a peak gradient of 29 and immediately gradient of 7. 02/12/2022, patient is being seen for a follow-up. The patient has been out of the intensive care yesterday. She has no specific point. Her breathing is improved and she is not having any major respiratory difficulties. Ne vertheless, she continues to have issues with her cardiac rhythm. She has atrial fibrillation/atrial tachycardia and she is on a combination of medications including metoprolol in the form of Toprol-XL 100 mg by mouth twice a day, Cardizem 60 mg by mouth 3 times a day and the patient is also on Multaq. No chest pain. No cough or sputum production. No hemoptysis. No syncope. The patient is being monitored very closely regarding her ongoing issues with cardiac arrhythmias. No plans for cardioversion based on my conversation with the mill beam fitter. Potassium level is at 4. Sodium level is at 133, BUN is 23 with a creatinine of 0.7. Normal LFTs. Objective - Vital Signs Vital signs: Vital Signs Temp 97.5 F L 02/12/22 11:58 Pulse 119 H 02/12/22 11:58 Resp 17 02/12/22 11:58 BP 104/72 02/12/22 11:58 Pulse Ox 98 02/12/22 11:58 FiO2 Intake & Output 02/11/22 02/12/22 02/12/22 18:59 06:59 18:59 Intake Total 125 125 Output Total 800 Balance -675 125 Intake: Intake, IV Titration 125 125 Amount Diltiazem 125 mg In 125 125 Sodium Chloride 0.9% 100 ml @ 10 MG/HR 10 mls/hr IV .[id number] PHUONG Rx#: [id number] Output: Urine 800 Other: Voiding Method Toilet Toilet Toilet # Voids 1 - Exam No acute distress, oriented 3. Patient is currently on RA HEENT examination is grossly unremarkable. Neck supple. Full range of motion. No adenopathy thyromegaly or neck vein distention. Cardiovascular examination reveals regular rhythm rate. S1-S2 normal. No S3 or S4. No discernible murmur noted. Lungs sounds are diminished bilaterally and there is marked improvement in the bronchospasm wheezing that was appreciated earlier. Some limited rhonchi and wheeze is still appreciated. Abdomen soft bowel sounds are heard. No masses or tenderness. Extremities are intact. No cyanosis clubbing or edema. Skin is without rash or lesion. Neurologic Neurologically, the patient is awake and alert and the patient does not have any focal neurological deficit. Cranial nerves are essentially intact. - Labs CBC & Chem 7: 02/09/22 06:33 02/11/22 10:00 Assessment and Plan Plan: Atrial fibrillation/RVR, with cardioversion, 02/06/2022. The patient continues to have episodes of A. fib RVR, last episode was last night and the patient's Coumadin a Cardizem drip at 10 L an hour in addition to Toprol and I will request. Cardiology evaluated the patient patient was started on Multaq 400 mg by mouth twice a day. The patient continues to be an atrial tachycardia, heart rate is under better control Valvular heart disease with mitral valve involvement of mitral valve stenosis acute bronchitis with reactive bronchospasm wheezing, improving, started on prednisone burst taper and oral antibiotics Small bilateral pleural effusions History of chronic atrial fibrillation. The patient received previous cardiac ablation and the patient is having paroxysmal atrial fibrillation History of hypertension. History of hyperlipidemia. History of rheumatoid arthritis. Previous history of pericardial window and this was done post cardiac ablation and iatrogenic pericardial effusion requiring a window. History of osteoporosis. Previous history of cardioversions and electrophysiologic studies with ablation. Plan: Pulmonary status is stable for now Complete a course of antibiotics and steroids Continue using incentive spirometer Management of atrial fibrillation per cardiology. The patient is having more so than atrial tachycardia today's evaluation . The patient is currently on a Cardizem 60 mg by mouth 3 times a dayd the patient is also on Toprol-XL, and Multaq Obtain a contrast enhanced CAT scan of the chest and this was reviewed and the findings are essentially benign. Limited postinfectious changes. Very small pleural effusions. Continue using incentive spirometer Cardiac medications are all appropriate and the patient is still maintained on diuretics, still on a combination of Aldactone and Lasix We'll continue to follow make further recommendations based on her progress. Currently out of the intensive care unit
[2022-02-12] MEDS: DILTIAZEM ORAL 60 MG TAB PO SCH ×3 (13:31→21:30)
[2022-02-13] MEDS: DRONEDARONE 400 MG TAB PO SCH ×2 (07:01→16:29)
[2022-02-13] MEDS: IPRATROPIUM-ALBUTEROL 3 ML NEB INHALATION SCH ×4 (08:17→19:52)
[2022-02-13] MEDS: APIXABAN 2.5 MG TABLET PO SCH ×2 (09:47→20:09)
--- NOTE | 2022-02-13 10:44 | P.PN ---
Subjective 81-year-old lady with past medical history significant for atrial fibrillation, hyperlipidemia, hypertension who presented to the ER because of palpitations. She was all right yesterday night when she went to bed at which time her apple watch notified of her heart rate being in the 170s. At that time patient was also complaining of palpitations. Patient also complaining of dizziness. Patient was brought to the ER of [facility]. Initial EKG showed SVT versus atrial tachycardia with heart rate 170s. Patient was started on IV Card izem drip and admitted to hospitalist service. 02/06/2022 Patient is seen and evaluated in room at bedside; remains in atrial fibrillation with heart rate ranging between 140s to 160s Vital signs reveal temperature of 97.9, pulse 160, respiration 24 and blood pressure 127/71 - Patient remains on beta blockers and calcium channel blockers; was intolerant of amiodarone which was discontinued Cardiology planning to take patient for cardioversion given uncontrolled heart rate and patient being symptomatic 02/07/2022 Patient is seen and evaluated in ICU; patient underwent cardioversion yesterday after which went into acute respiratory distress and was transferred to ICU for possible aspiration pneumonia/fluid overload -- Patient has an episode of SVT last night which is followed by sinus positive and bradycardia; cardiology is on board and recommending to discontinue Cardizem; and Coreg patient is placed on metoprolol succinate 50 mg twice a day; amlodipine and Dyazide at placed on hold due to softer blood pressures White count 10, hemoglobin 11.3, hematocrit 34.7, and platelet count 176,000. Sodium 131, potassium 3.4, chlorides 92, CO2 29, BUN 23, and creatinine 0.8. AST was 303. ALT was 418. Pro-calcitonin level was 0.59. N-terminal proBNP was 8770. Chest x-ray shows patchy bilateral infiltrates, which are improved on the right, and a bit more significant on the left. Patient has been placed on bronchodilator nebulizer treatments; 4 times a day and when necessary; has been receiving and has been started on IV Zosyn given infiltrates on chest x-ray and pro-calcitonin trending up 02/08/2022 This is a pleasant 81 old female who was admitted with supraventricular tachy cardia versus atrial tachycardia and in view of her chronic history of atrial fibrillation she underwent cardioversion ablation on 02/06. Patient currently heart rate is better controlled, actually she was slightly bradycardic and Cardizem dose was lowered to 30 mg 3 times a day. Also patient kept on metoprolol 100 mg. IV Lasix switched to oral dose of 40 mg twice daily and started on entresto Today she still feeling short of breath and tachypnea. She is not on home oxygen and currently she wears 4 L/m. She still have cough with little phlegm. She says she has chronic and steady gait. She's been evaluated by neurologist patient had low appetite but no diarrhea She remains on Zosyn and she still tachypnea. Chest x-ray showing bilateral atypical pneumonia versus CHF. ProBNP and pro-calcitonin both are elevated 8770 and 0.59 respectively. Patient is on home dose of leg was 2.5 mg. We will check a swallow evaluation and bladder scan. 02/09/2022 Patient dyspnea is a slightly better, he still lethargic, his cough is better also Robitussin. He has low appetite but no diarrhea. He is on 2 L oxygen via nasal cannula. Diagnostic Radiologist R following the patient for cardiac arrhythmia, he has chronic atrial fibrillation status post ablation and developed atrial tachycardia, currently his heart rate is in the 50s. Also had CT of the chest showing left lower lobe inflammatory process is s uspected with tree-in-bud appearance. Patient currently kept on Zosyn. Also he is on Eliquis and metoprolol per retail reset merchandiser. Also he is on Cardizem per retail reset merchandiser. Liver ultrasound showing hepatocellular disease and an anechoic area near IVC 1.8 x 2.4 x 1.4 cm, liver enzymes are trending down. The patient started on IV Solu-Medrol for possible COPD exacerbation 02/11/2012 Patient states improving in all of her symptoms occluding the dyspnea coughing. She is eating better today with no diarrhea. She was on 2 L oxygen via nasal cannula in the morning. No GI or urinary symptoms. Echocardiogram today showing ejection fraction of 50-55% with severe mitral regurgitation and moderate mitral stenosis. Patient was placed on Cardizem drip. Currently heart rate is more than 100-112. Cardiology been following her closely. She is currently on Lasix 20 mg twice daily. Aldactone 25 mg IV. Heart rate was in the 50s yesterday. We will defer to cardiology for management of cardiac arrhythmia. Patient remains on Zosyn, IV Solu-Medrol, liquids 2.5 mg and other cardiac medications Also patient has elevated liver enzymes trending down, patient will benefit from GI evaluation, no GI service in this facility during this week 02/11/2022 today she's very active and pleasant and sitting up at the age of the bed and denies chest pain or dyspnea and she feels comfortable and not in distress Never the less her heart is still uncontrolled despite several treatment with metoprolol and Cardizem. Currently she was placed from oral dose and the Cardizem drip 10 mg per hour. Heart rate is around 117, asymptomatic. However her pulmonary problem is improving, her pneumonia is improving as well and currently she is on Augmentin and prednisone 40 mg. He will need evaluation for her severe mitral regurgitation and moderate mitral stenosis once rhythm is controlled today patient is known to be transferred to select unit 02/12/2022 Patient is improving each day and slowly, her dyspnea and coughing are better. She has no specific complaints today However she still tachycardic with her trying to 117-125 and she remains on Cardizem drip. Again I informed the patient about her annual Area in the liver that needs to be addressed as an outpatient and recommended for her to follow-up with Dr. Kent, in 1 to 2 weeks after discharge and she verbalized understanding and acceptance She denies any abdominal pain today. She is also on liquids Antibiotics are adjusted and to Augmentin and prednisone 40 mg 02/13/2022 Patient lying in bed with no significant chest pain or dyspnea. She still ta chycardic around 112-120. Yesterday her Cardizem drip was stopped on currently she is on Cardizem 60 mg 3 times a day. Her respiratory status is also improved. Repeat labs in the morning. We will ask for PT/OT evaluation. Objective - Vital Signs Vital signs: Vital Signs Temp 98.3 F 02/13/22 03:30 Pulse 111 H 02/13/22 08:29 Resp 15 02/13/22 09:59 BP 123/73 02/13/22 07:55 Pulse Ox 97 02/13/22 08:19 FiO2 21 02/12/22 19:37 Intake & Output 02/12/22 02/13/22 02/13/22 18:59 06:59 18:59 Intake Total 120 Balance 120 Intake: Oral 120 Other: Voiding Method Toilet Toilet Toilet # Voids 1 2 - Exam GENERAL: The patient is alert and oriented x3, not in any acute distress. Well developed, well nourished. HEENT: Pupils are round and equally reacting to light. EOMI. No scleral icterus. No conjunctival pallor. Normocephalic, atraumatic. No pharyngeal erythema. No thyromegaly. CARDIOVASCULAR: S1 and S2 present. No murmurs, rubs, or gallops. PULMONARY: Chest is clear to auscultation, no wheezing or crackles. ABDOMEN: Soft, nontender, nondistended, normoactive bowel sounds. No palpable organomegaly. MUSCULOSKELETAL: No joint swelling or deformity. EXTREMITIES: No cyanosis, clubbing, or pedal edema. NEUROLOGICAL: Gross neurological examination did not reveal any focal deficits. SKIN: No rashes. no petechiae. - Labs CBC & Chem 7: 02/09/22 06:33 02/11/22 10:00 Assessment and Plan Assessment: SVT with short RP vs atrial tachycardia Paroxysmal atrial fibrillation status post cardioversion on 02/06, on Eliquis Possible left lower lobe pneumonia, with tree-in-bud appearance Elevated liver enzymes Acute COPD exacerbation Borderline low vitamin B12 Hypertension GERD Dyslipidemia History of osteoporosis Unsteady gait Plan: this is a pleasant 81-year-old female who presents with SVT/A. fib and elevated liver enzymes Continue with Cardizem 30 mg, metoprolol. Continue with the liquids Diagnostic Radiologist on the case Continue with antibiotics Zosyn with pulmonary team on the case as well. Continue with vitamin B12 replacement therapy Continue with IV Solu-Medrol Neurology evaluated The patient and ordered vitamin B12, folate, HbA1c, orthostatic vitals. They recommended imaging such as CT or MRI Brain but the patient refused. Labs and medication were reviewed.. Continue same treatment. Continue with symptomatic treatment. Resume home medication. Monitor lytes and vitals. DVT and GI prophylaxis. Further recommendations as per clinical course of the patient DVT prophylaxis: eliquis GI Prophylaxis: Pepcid PT/OT: Pending Prognosis is guarded
[2022-02-13 11:20] LABS: Calcium 8.3 mg/dL (8.4-10.2); Magnesium 2.3 mg/dL (1.6-2.3); Potassium 3.9 mmol/L (3.5-5.1)
[2022-02-13] MEDS: SPIRONOLACTONE 25 MG TAB PO SCH (11:42)
[2022-02-13] MEDS: FAMOTIDINE 20 MG TAB PO SCH ×2 (11:42→20:09)
[2022-02-13] MEDS: predniSONE 20 MG TAB PO SCH (11:42)
[2022-02-13] MEDS: AMOXIC-POT CLAV 875-125MG 1 EACH TAB PO SCH (11:42)
[2022-02-13] MEDS: FUROSEMIDE 20 MG TAB PO SCH ×2 (11:42→16:29)
[2022-02-13] MEDS: METOPROLOL SUCCINATE (ER) 100 MG TAB.ER.24H PO SCH ×2 (11:42→20:09)
[2022-02-13] MEDS: guaiFENesin-DM 100-10MG/5ML 10 ML CUP PO SCH ×2 (11:43→20:09)
[2022-02-13] MEDS: SACUBITRIL/VALSARTAN 24 MG-26 MG TABLET PO SCH ×2 (11:43→20:09)
[2022-02-13] MEDS: DILTIAZEM ORAL 60 MG TAB PO SCH ×3 (11:43→20:09)
[2022-02-13] MEDS: CYANOCOBALAMIN 500 MCG TAB PO SCH (11:43)
--- NOTE | 2022-02-13 13:12 | P.PN ---
Subjective Progress Note Date: 02/13/22 This is an 81-year-old female who was initially seen in the emergency room on February 02, for rapid heart rate, and palpitations. She apparently presented with atrial fibrillation and RVR. Today, she underwent cardioversion with 200 J. She was converted after only one cardioversion. Unfortunately, she seems to be very short of breath, and, I was called by cardiology for possible placement into the intensive care unit. The patient was in phase I or recovery, and I went to go see her. She appears to possibly have aspirated as he was increased density in the right chest compared to the left, and, she may also have a touch of CHF. The BMP was elevated. The patient is a lifelong nonsmoker. The patient sees primarily her family doctor, and also cardiology. She does have a history of atrial fibrillation, gastroesophageal reflux disease, hyperlipidemia, hypertension, osteoarthritis, and rheumatoid arthritis. She also has a previous history of cardiac, now with a pericardial window. She also has a history of osteoporosis, and diverticular disease. PT INR and PTT are normal. The N-t erminal proBNP was 8770. The chest x-ray showed diffuse bilateral infiltrates, a bit more dense on the right side. I did spend nurse in phase I recovery to give her Lasix I also spoke to my charge nurse in the ICU. She will need a pro- calcitonin level, chest x-ray in the morning, and labs in the morning. Progress note dated 02/07/2022. 81-year-old female room 266. Yesterday, she was seen in phase I recovery. She was initially admitted on February 02, for atrial fibrillation with rapid ve ntricular response. The patient underwent cardioversion yesterday, but afterwards, was very short of breath. The patient apparently may have aspirated, and also, may have had a touch of heart failure. Because of these 2 reasons, I moved the patient to the intensive care unit, for further monitoring and management. This morning, the patient is currently on 4 L of oxygen. She is a very wet congested cough. She's not receiving any IV fluids. She is receiving IV Lasix. Last night, she apparently had an episode of supraventricular tachycardia, followed by a sinus pause, and then bradycardia. Cardiology is aware. White count 10, hemoglobin 11.3, hematocrit 34.7, and platelet count 176,000. Sodium 131, potassium 3.4, chlorides 92, CO2 29, BUN 23, and creatinine 0.8. AST was 303. ALT was 418. Pro-calcitonin level was 0.59. N-terminal proBNP was 8770. Chest x-ray shows patchy bilateral infiltrates, which are improved on the right, and a bit more significant on the left. ,022, the patient is being seen for a follow-up. This morning, she is on 3 L of oxygen by nasal cannula. The patient presented to us with A. fib RVR. The patient underwent cardioversion and currently she is in normal sinus rhythm. A chest x-ray from today is showing some cardiomegaly and some mild pulmonary vascular congestion. This is consistent with mild CHF as the patient has interstitial pulmonary changes bilaterally. No evidence of any airspace disease or consolidations or pleural effusions. Other the patient had a cardiac catheterization on 01/19/2022 and the patient was found to have normal coronaries. Her echocardiogram that was done on 12/28/2021 showed mild LV systolic dysfunction and ejection fraction was around 40-45%. The patient had severe mitral calcification and moderate degree of mitral regurgitation and moderate degree of mitral stenosis. Otherwise, no other acute abnormalities was identified. The blood work from today shows a white cell count of 7.8 and hemoglobin of 11 and a platelet count of 162. There BUN is at 14 with a creatinine of 0.6 and the sodium level is at 133 and a potassium level is at 3.2 which is being replaced for now. The pro-calcitonin level was slightly elevated at 0.59 at the time of admission and the patient's proBNP level was 8770. Normal coagulation profile. The patient otherwise is currently on DuoNeb nebulized treatments around the clock, IV Zosyn as an empiric antibiotic coverage, and terms of her cardiomyopathy, she is on Entresto 24/25 one tablet a day, Farxiga 10 mg by mouth daily, and Lasix 40 mg by mouth twice a day. The patient is on metoprolol 100 mg XL 1 tablet a day and oral Cardizem 30 mg by mouth 3 times a day. She is on long-term anticoagulation with Eliquis 02/09/2022, the patient is being seen for a follow-up. This morning, the patient on oxygen at 2 L per minute nasal cannula. The patient had another episode of atrial fibrillation with RVR and the heart rate went as high as 190. Note that during yesterday's evaluation, the patient was in a normal sinus rhythm and she was in a sinus rhythm throughout the day. Cardiology was informed and the patient was given her morning metoprolol and her heart rate currently is around 110. It is irregular and the patient remains in atrial fibrillation. The patient remains on a combination of metoprolol 100 mg XL 1 tablet today and the patient is also on Cardizem 30 mg by mouth 3 times a day and the Cardizem dose was increased up to 60 mg by mouth 3 times a day. The patient remains on anticoagulation with a request. On yesterday's evaluation, I was concerned of an active taken bronchitis as the patient is a congested cough and wheeze. The patient was already on bronchodilators. I added IV Solu-Medrol dose of 40 mg every 6 hours and the patient remains on IV Zosyn. Repeat chest x-ray from today is concerning of a right lung pneumonia/loculated effusion. Like to obtain a contrast enhanced CAT scan of the chest. Otherwise, the white cell count is low at 9.0 hemoglobin 12.6. Sodium is at 135 with a potassium level of 3.4, BUN is at 50 with a creatinine of 0.6. A repeat COVID 19 testing was done yesterday and the levels were negative. LFTs were elevated yesterday and without improving upon serial monitoring. The patient is been taking Robitussin-DM for cough and congestion. 02/10/2022, the patient is doing well. Cough and congestion his settled down significantly. I reviewed the CAT scan of the chest that was done yesterday. It showed small bilateral pleural effusions and some limited atelectatic changes in lung bases and some postinfectious groundglass changes. Is very minimal and of no major concern. No evidence of any malignancy. There was a hepatic cyst measuring 1.7 cm in size. Sputum cultures are negative. The patient's blood work shows no major electrode disturbance. Potassium is at 3.8. He is at 20 with a creatinine of 0.7. Of importance is that the patient converted back into normal sinus rhythm. For this point as cardioversion. The patient is currently on a combination of metoprolol and Cardizem pH is on long-term and to coagulation with a request. She is still on bronchodilators and she is also on systemic steroids. Her CHF as well compensated at this point in time. She has no specific complaints. She is on 2 L O2 nasal cannula and she'll be weaned down to room air oxygen. 02/11/2022, seeing the patient for the follow-up. Overall respiratory status is stable. Nevertheless, yesterday, yet again, the patient went into atrial fibrillation with RVR. She was started on a Cardizem drip and currently the patient is on Cardizem drip at 10 mg an hour in addition to metoprolol XL 100 mg twice a day. Her heart rate currently is controlled. Respiratory status is stable. I reviewed her CAT scan from yesterday and there is no clear indication for pneumonia. 2 patient was treated with bronchodilators and steroids regarding some underlying tracheal bronchitis and she remains on Solu-Medrol 40 mg every 6 hours. She is also on IV Zosyn. Anticoagulation is with elevated cholesterol 0.5 mg by mouth twice a day. In terms of her labs, potassium has been replaced and is currently up to 4. TMs at 23 with a creatinine of 0.7. Sodium is at 133. No other significant abnormalities have been noted. Echocardiogram was repeated yesterday and the patient was found to have normal LV, mitral annular calcification with severe mitral regurgitation and moderate degree of mitral stenosis with a peak gradient of 29 and immediately gradient of 7. 02/12/2022, patient is being seen for a follow-up. The patient has been out of the intensive care yesterday. She has no specific point. Her breathing is improved and she is not having any major respiratory difficulties. Ne vertheless, she continues to have issues with her cardiac rhythm. She has atrial fibrillation/atrial tachycardia and she is on a combination of medications including metoprolol in the form of Toprol-XL 100 mg by mouth twice a day, Cardizem 60 mg by mouth 3 times a day and the patient is also on Multaq. No chest pain. No cough or sputum production. No hemoptysis. No syncope. The patient is being monitored very closely regarding her ongoing issues with cardiac arrhythmias. No plans for cardioversion based on my conversation with the stone spreader operator. Potassium level is at 4. Sodium level is at 133, BUN is 23 with a creatinine of 0.7. Normal LFTs. 02/13/2022, the patient remains in atrial fibrillation. No new complaints otherwise for now. Respiratory status is stable. General anticoagulation with liquids. No neurological symptoms. No significant cough or sputum production chest tightness or wheezing. She is on a prednisone burst taper and she is also on DuoNeb nebulized treatments around the clock. Cardiac management as soon Dr. Alexander. The sodium is at 1:30/11 of 3.5, BUN is 27 with a creatinine of 0.9. Potassium level is at 3.9. Objective - Vital Signs Vital signs: Vital Signs Temp 98.3 F 02/13/22 03:30 Pulse 110 H 02/13/22 12:00 Resp 15 02/13/22 09:59 BP 110/79 02/13/22 12:00 Pulse Ox 95 02/13/22 12:00 FiO2 21 02/12/22 19:37 Intake & Output 02/12/22 02/13/22 02/13/22 18:59 06:59 18:59 Intake Total 120 Balance 120 Intake: Oral 120 Other: Voiding Method Toilet Toilet Toilet # Voids 1 2 2 - Exam No acute distress, oriented 3. Patient is currently on RA HEENT examination is grossly unremarkable. Neck supple. Full range of motion. No adenopathy thyromegaly or neck vein distention. Cardiovascular examination reveals regular rhythm rate. S1-S2 normal. No S3 or S4. No discernible murmur noted. Lungs sounds are diminished bilaterally and there is marked improvement in the b ronchospasm wheezing that was appreciated earlier. Some limited rhonchi and wheeze is still appreciated. Abdomen soft bowel sounds are heard. No masses or tenderness. Extremities are intact. No cyanosis clubbing or edema. Skin is without rash or lesion. Neurologic Neurologically, the patient is awake and alert and the patient does not have any focal neurological deficit. Cranial nerves are essentially intact. - Labs CBC & Chem 7: 02/09/22 06:33 02/13/22 09:38 Labs: Abnormal Lab Results - Last 24 Hours (Table) 02/13/22 Range/Units 09:38 Sodium 134 L (137-145) mmol/L Chloride 94 L (98-107) mmol/L Carbon Dioxide 33 H (22-30) mmol/L BUN 27 H (7-17) mg/dL Glucose 117 H (74-99) mg/dL Calcium 8.3 L (8.4-10.2) mg/dL Assessment and Plan Plan: trial fibrillation/RVR, with cardioversion, 02/06/2022. The patient continues to have episodes of A. fib RVR, last episode was last night and the patient's Coumadin a Cardizem drip at 10 L an hour in addition to Toprol and I will request. Cardiology evaluated the patient patient was started on Multaq 400 mg by mouth twice a day. The patient continues to be an atrial tachycardia, heart rate is under better control. Condition is essentially unchanged in terms of her cardiac arrhythmia. The patient remains in a regular heart rhythm at the rate is controlled for now. Valvular heart disease with mitral valve involvement of mitral valve stenosis acute bronchitis with reactive bronchospasm wheezing, improving, started on prednisone burst taper and oral antibiotics, improved Small bilateral pleural effusions History of chronic atrial fibrillation. The patient received previous cardiac ablation and the patient is having paroxysmal atrial fibrillation History of hypertension. History of hyperlipidemia. History of rheumatoid arthritis. Previous history of pericardial window and this was done post cardiac ablation and iatrogenic pericardial effusion requiring a window. History of osteoporosis. Previous history of cardioversions and electrophysiologic studies with ablation. Plan: Pulmonary status is stable for now and improved Complete a course of antibiotics and steroids Awaiting further recommendations from cardiology. Management of atrial fibrillation per cardiology. The patient is having more so than atrial tachycardia today's evaluation . The patient is currently on a Cardizem 60 mg by mouth 3 times a dayd the patient is also on Toprol-XL, and Multaq Obtain a contrast enhanced CAT scan of the chest and this was reviewed and the findings are essentially benign. Limited postinfectious changes. Very small pleural effusions. Continue using incentive spirometer Cardiac medications are all appropriate and the patient is still maintained on diuretics, still on a combination of Aldactone and Lasix Keep the patient on telemetry for now.
--- NOTE | 2022-02-13 15:02 | P.PN ---
Subjective Progress Note Date: 02/13/22 This is a pleasant 81-year-old female with history of atrial fibrillation with mild to moderate nonischemic cardiomyopathy who presented to the emergency department in atrial fibrillation with rapid ventricular response. She underwent cardioversion with jew of sinus mechanism on February 06. She subsequently went back into an atrial tachycardia with some rapid ventricular response. She is currently on metoprolol succinate 100 mg daily, Cardizem 60 mg by mouth 3 times a day and multipack 400 mg by mouth twice a day. Heart rate is currently in the 110s. She does not seem to notice the arr hythmia. She denies any current complaints of palpitations, shortness of breath, orthopnea, PND or edema. She had no chest discomfort. Echocardiogram with Doppler study showed ejection fraction of 50-55% and evidence of severe mitral regurgitation. Objective - Vital Signs Vital signs: Vital Signs Temp 98.3 F 02/13/22 03:30 Pulse 110 H 02/13/22 12:00 Resp 15 02/13/22 09:59 BP 110/79 02/13/22 12:00 Pulse Ox 95 02/13/22 12:00 FiO2 21 02/12/22 19:37 Intake & Output 02/12/22 02/13/22 02/13/22 18:59 06:59 18:59 Intake Total 120 Balance 120 Intake: Oral 120 Other: Voiding Method Toilet Toilet Toilet # Voids 1 2 2 - Exam GENERAL: Well-developed in no acute distress. NECK: Supple. No JVD or thyromegaly LUNGS: Respirations even and unlabored. Lungs essentially clear to auscultation bilaterally. HEART: Regular rate and rhythm. S1 and S2 heard. EXTREMITIES: Normal range of motion. No clubbing or cyanosis. Peripheral pulses intact. No lower extremity edema - Labs CBC & Chem 7: 02/09/22 06:33 02/13/22 09:38 Labs: Abnormal Lab Results - Last 24 Hours (Table) 02/13/22 Range/Units 09:38 Sodium 134 L (137-145) mmol/L Chloride 94 L (98-107) mmol/L Carbon Dioxide 33 H (22-30) mmol/L BUN 27 H (7-17) mg/dL Glucose 117 H (74-99) mg/dL Calcium 8.3 L (8.4-10.2) mg/dL Assessment and Plan Assessment: 1. Atrial fibrillation, post cardioversion, appears to be in atrial tachycardia with 2 to one conduction and persistent tachycardia 2. Progressive dyspnea with evidence of CHF and possible pneumonia. Her echocardiogram showed severe mitral regurgitation although not documented in the past 3. Mild to moderate nonischemic cardiomyopathy, appears to be better on the most recent echocardiogram 4. History of hypertension 5. History of ablation 2 Plan: From cardiology perspective we do not recommend repeat cardioversion at this t sanjay. Continue current medicaitons. Anticipate the patient will be discharged home in the next 24 hours and will follow-up with Dr. Narvaez as an outpatient to discuss further options including possible repeat ablation. ROUTE DRIVER note has been reviewed, I agree with a documented findings and plan of care. Patient was seen and examined.
[2022-02-14 04:45] VITALS: RESP 18
[2022-02-14] MEDS: DRONEDARONE 400 MG TAB PO SCH (06:18)
[2022-02-14] MEDS: IPRATROPIUM-ALBUTEROL 3 ML NEB INHALATION SCH (07:18)
[2022-02-14 07:41] LABS: Calcium 8.1 mg/dL (8.4-10.2)
[2022-02-14 08:09] VITALS: BP 124/79; PULSE 56; TEMP 97.9
[2022-02-14] MEDS: APIXABAN 2.5 MG TABLET PO SCH (08:32)
[2022-02-14] MEDS: METOPROLOL SUCCINATE (ER) 100 MG TAB.ER.24H PO SCH (08:32)
[2022-02-14] MEDS: CYANOCOBALAMIN 500 MCG TAB PO SCH (08:32)
[2022-02-14] MEDS: FAMOTIDINE 20 MG TAB PO SCH (08:32)
[2022-02-14] MEDS: predniSONE 20 MG TAB PO SCH (08:32)
[2022-02-14] MEDS: DILTIAZEM ORAL 60 MG TAB PO SCH (08:32)
[2022-02-14] MEDS: SPIRONOLACTONE 25 MG TAB PO SCH (08:32)
[2022-02-14] MEDS: FUROSEMIDE 20 MG TAB PO SCH (08:32)
[2022-02-14] MEDS: DAPAGLIFLOZIN PROPANEDIOL 10 MG TABLET PO SCH (08:33)
[2022-02-14] MEDS: SACUBITRIL/VALSARTAN 24 MG-26 MG TABLET PO SCH (08:33)
[2022-02-14] MEDS: guaiFENesin-DM 100-10MG/5ML 10 ML CUP PO SCH (08:33)
[2022-02-14 10:20] LABS: ALT 60 U/L (4-34); AST 20 U/L (14-36); Alkaline Phosphatase 70 U/L (38-126)
--- NOTE | 2022-02-14 10:40 | P.PN ---
Subjective Progress Note Date: 02/14/22 This is an 81-year-old female who was initially seen in the emergency room on February 02, for rapid heart rate, and palpitations. She apparently presented with atrial fibrillation and RVR. Today, she underwent cardioversion with 200 J. She was converted after only one cardioversion. Unfortunately, she seems to be very short of breath, and, I was called by cardiology for possible placement into the intensive care unit. The patient was in phase I or recovery, and I went to go see her. She appears to possibly have aspirated as he was increased density in the right chest compared to the left, and, she may also have a touch of CHF. The BMP was elevated. The patient is a lifelong nonsmoker. The patient sees primarily her family doctor, and also cardiology. She does have a history of atrial fibrillation, gastroesophageal reflux disease, hyperlipidemia, hypertension, osteoarthritis, and rheumatoid arthritis. She also has a previous history of cardiac, now with a pericardial window. She also has a history of osteoporosis, and diverticular disease. PT INR and PTT are normal. The N-t erminal proBNP was 8770. The chest x-ray showed diffuse bilateral infiltrates, a bit more dense on the right side. I did spend nurse in phase I recovery to give her Lasix I also spoke to my charge nurse in the ICU. She will need a pro- calcitonin level, chest x-ray in the morning, and labs in the morning. Progress note dated 02/07/2022. 81-year-old female room 266. Yesterday, she was seen in phase I recovery. She was initially admitted on February 02, for atrial fibrillation with rapid ve ntricular response. The patient underwent cardioversion yesterday, but afterwards, was very short of breath. The patient apparently may have aspirated, and also, may have had a touch of heart failure. Because of these 2 reasons, I moved the patient to the intensive care unit, for further monitoring and management. This morning, the patient is currently on 4 L of oxygen. She is a very wet congested cough. She's not receiving any IV fluids. She is receiving IV Lasix. Last night, she apparently had an episode of supraventricular tachycardia, followed by a sinus pause, and then bradycardia. Cardiology is aware. White count 10, hemoglobin 11.3, hematocrit 34.7, and platelet count 176,000. Sodium 131, potassium 3.4, chlorides 92, CO2 29, BUN 23, and creatinine 0.8. AST was 303. ALT was 418. Pro-calcitonin level was 0.59. N-terminal proBNP was 8770. Chest x-ray shows patchy bilateral infiltrates, which are improved on the right, and a bit more significant on the left. ,022, the patient is being seen for a follow-up. This morning, she is on 3 L of oxygen by nasal cannula. The patient presented to us with A. fib RVR. The patient underwent cardioversion and currently she is in normal sinus rhythm. A chest x-ray from today is showing some cardiomegaly and some mild pulmonary vascular congestion. This is consistent with mild CHF as the patient has interstitial pulmonary changes bilaterally. No evidence of any airspace disease or consolidations or pleural effusions. Other the patient had a cardiac catheterization on 01/19/2022 and the patient was found to have normal coronaries. Her echocardiogram that was done on 12/28/2021 showed mild LV systolic dysfunction and ejection fraction was around 40-45%. The patient had severe mitral calcification and moderate degree of mitral regurgitation and moderate degree of mitral stenosis. Otherwise, no other acute abnormalities was identified. The blood work from today shows a white cell count of 7.8 and hemoglobin of 11 and a platelet count of 162. There BUN is at 14 with a creatinine of 0.6 and the sodium level is at 133 and a potassium level is at 3.2 which is being replaced for now. The pro-calcitonin level was slightly elevated at 0.59 at the time of admission and the patient's proBNP level was 8770. Normal coagulation profile. The patient otherwise is currently on DuoNeb nebulized treatments around the clock, IV Zosyn as an empiric antibiotic coverage, and terms of her cardiomyopathy, she is on Entresto 24/25 one tablet a day, Farxiga 10 mg by mouth daily, and Lasix 40 mg by mouth twice a day. The patient is on metoprolol 100 mg XL 1 tablet a day and oral Cardizem 30 mg by mouth 3 times a day. She is on long-term anticoagulation with Eliquis 02/09/2022, the patient is being seen for a follow-up. This morning, the patient on oxygen at 2 L per minute nasal cannula. The patient had another episode of atrial fibrillation with RVR and the heart rate went as high as 190. Note that during yesterday's evaluation, the patient was in a normal sinus rhythm and she was in a sinus rhythm throughout the day. Cardiology was informed and the patient was given her morning metoprolol and her heart rate currently is around 110. It is irregular and the patient remains in atrial fibrillation. The patient remains on a combination of metoprolol 100 mg XL 1 tablet today and the patient is also on Cardizem 30 mg by mouth 3 times a day and the Cardizem dose was increased up to 60 mg by mouth 3 times a day. The patient remains on anticoagulation with a request. On yesterday's evaluation, I was concerned of an active taken bronchitis as the patient is a congested cough and wheeze. The patient was already on bronchodilators. I added IV Solu-Medrol dose of 40 mg every 6 hours and the patient remains on IV Zosyn. Repeat chest x-ray from today is concerning of a right lung pneumonia/loculated effusion. Like to obtain a contrast enhanced CAT scan of the chest. Otherwise, the white cell count is low at 9.0 hemoglobin 12.6. Sodium is at 135 with a potassium level of 3.4, BUN is at 50 with a creatinine of 0.6. A repeat COVID 19 testing was done yesterday and the levels were negative. LFTs were elevated yesterday and without improving upon serial monitoring. The patient is been taking Robitussin-DM for cough and congestion. 02/10/2022, the patient is doing well. Cough and congestion his settled down significantly. I reviewed the CAT scan of the chest that was done yesterday. It showed small bilateral pleural effusions and some limited atelectatic changes in lung bases and some postinfectious groundglass changes. Is very minimal and of no major concern. No evidence of any malignancy. There was a hepatic cyst measuring 1.7 cm in size. Sputum cultures are negative. The patient's blood work shows no major electrode disturbance. Potassium is at 3.8. He is at 20 with a creatinine of 0.7. Of importance is that the patient converted back into normal sinus rhythm. For this point as cardioversion. The patient is currently on a combination of metoprolol and Cardizem pH is on long-term and to coagulation with a request. She is still on bronchodilators and she is also on systemic steroids. Her CHF as well compensated at this point in time. She has no specific complaints. She is on 2 L O2 nasal cannula and she'll be weaned down to room air oxygen. 02/11/2022, seeing the patient for the follow-up. Overall respiratory status is stable. Nevertheless, yesterday, yet again, the patient went into atrial fibrillation with RVR. She was started on a Cardizem drip and currently the patient is on Cardizem drip at 10 mg an hour in addition to metoprolol XL 100 mg twice a day. Her heart rate currently is controlled. Respiratory status is stable. I reviewed her CAT scan from yesterday and there is no clear indication for pneumonia. 2 patient was treated with bronchodilators and steroids regarding some underlying tracheal bronchitis and she remains on Solu-Medrol 40 mg every 6 hours. She is also on IV Zosyn. Anticoagulation is with elevated cholesterol 0.5 mg by mouth twice a day. In terms of her labs, potassium has been replaced and is currently up to 4. TMs at 23 with a creatinine of 0.7. Sodium is at 133. No other significant abnormalities have been noted. Echocardiogram was repeated yesterday and the patient was found to have normal LV, mitral annular calcification with severe mitral regurgitation and moderate degree of mitral stenosis with a peak gradient of 29 and immediately gradient of 7. 02/12/2022, patient is being seen for a follow-up. The patient has been out of the intensive care yesterday. She has no specific point. Her breathing is improved and she is not having any major respiratory difficulties. Ne vertheless, she continues to have issues with her cardiac rhythm. She has atrial fibrillation/atrial tachycardia and she is on a combination of medications including metoprolol in the form of Toprol-XL 100 mg by mouth twice a day, Cardizem 60 mg by mouth 3 times a day and the patient is also on Multaq. No chest pain. No cough or sputum production. No hemoptysis. No syncope. The patient is being monitored very closely regarding her ongoing issues with cardiac arrhythmias. No plans for cardioversion based on my conversation with the science specialist. Potassium level is at 4. Sodium level is at 133, BUN is 23 with a creatinine of 0.7. Normal LFTs. 02/13/2022, the patient remains in atrial fibrillation. No new complaints otherwise for now. Respiratory status is stable. General anticoagulation with liquids. No neurological symptoms. No significant cough or sputum production chest tightness or wheezing. She is on a prednisone burst taper and she is also on DuoNeb nebulized treatments around the clock. Cardiac management as soon Dr. Alexander. The sodium is at 1:30/11 of 3.5, BUN is 27 with a creatinine of 0.9. Potassium level is at 3.9. 02/13/2022, the patient is doing well. No new complaints. She remains in atrial fibrillation. Rate is controlled and the patient is being considered for discharge today. LFTs are normal. No nausea. No vomiting. No chest pain. No cough or sputum production. No palpitations. No syncope. No other significant events overnight. Objective - Vital Signs Vital signs: Vital Signs Temp 97.9 F 02/14/22 08:08 Pulse 56 L 02/14/22 08:08 Resp 18 02/14/22 04:00 BP 124/79 02/14/22 08:08 Pulse Ox 96 02/14/22 08:08 FiO2 21 02/12/22 19:37 Intake & Output 02/13/22 02/14/22 02/14/22 18:59 06:59 18:59 Intake Total 118 240 118 Balance 118 240 118 Intake: Oral 118 240 118 Other: Voiding Method Toilet Toilet Toilet # Voids 2 - Exam No acute distress, oriented 3. Patient is currently on RA HEENT examination is grossly unremarkable. Neck supple. Full range of motion. No adenopathy thyromegaly or neck vein distention. Cardiovascular examination reveals regular rhythm rate. S1-S2 normal. No S3 or S4. No discernible murmur noted. Lungs sounds are diminished bilaterally and there is marked improvement in the bronchospasm wheezing that was appreciated earlier. Some limited rhonchi and wheeze is still appreciated. Abdomen soft bowel sounds are heard. No masses or tenderness. Extremities are intact. No cyanosis clubbing or edema. Skin is without rash or lesion. Neurologic Neurologically, the patient is awake and alert and the patient does not have any focal neurological deficit. Cranial nerves are essentially intact. - Labs CBC & Chem 7: 02/09/22 06:33 02/14/22 06:50 Labs: Abnormal Lab Results - Last 24 Hours (Table) 02/13/22 02/14/22 02/14/22 Range/Units 09:38 06:50 06:50 Sodium 134 L 131 L (137-145) mmol/L Chloride 94 L 94 L (98-107) mmol/L Carbon Dioxide 33 H (22-30) mmol/L BUN 27 H 27 H (7-17) mg/dL Glucose 117 H 145 H (74-99) mg/dL Calcium 8.3 L 8.1 L (8.4-10.2) mg/dL ALT 60 H (4-34) U/L Assessment and Plan Plan: trial fibrillation/RVR, with cardioversion, 02/06/2022. The patient continues to have episodes of A. fib RVR, last episode was last night and the patient's Coumadin a Cardizem drip at 10 L an hour in addition to Toprol and I will request. Cardiology evaluated the patient patient was started on Multaq 400 mg by mouth twice a day. The patient continues to be an atrial tachycardia, heart rate is under better control. Condition is essentially unchanged in terms of her cardiac arrhythmia. The patient remains in a regular heart rhythm at the rate is controlled for now. Valvular heart disease with mitral valve involvement of mitral valve stenosis acute bronchitis with reactive bronchospasm wheezing, improving, started on prednisone burst taper and oral antibiotics, improved Small bilateral pleural effusions History of chronic atrial fibrillation. The patient received previous cardiac ablation and the patient is having paroxysmal atrial fibrillation History of hypertension. History of hyperlipidemia. History of rheumatoid arthritis. Previous history of pericardial window and this was done post cardiac ablation and iatrogenic pericardial effusion requiring a window. History of osteoporosis. Previous history of cardioversions and electrophysiologic studies with ablation. Plan: Pulmonary status is stable for now and improved The patient is going to be discharged home on a combination of Cardizem 60 mg by mouth 3 times a day the patient is also on Toprol-XL, and Multaq Anticoagulation with a request Prednisone burst taper Cardiac medications are all appropriate and the patient is still maintained on diuretics, still on a combination of Aldactone and Lasix Continue using incentive spirometer Follow-up with primary care physician. Follow-up with cardiology.
--- NOTE | 2022-02-19 06:47 | CDI ---
Documentation Clarification Form Date: 02/19/2022 06:20:00 AM From: Phyllis Restrepo Admit Date: 02/02/2022 06:30:00 AM Patient Name: Miya Colon Visit Number: [id number] Discharge Date: 02/14/2022 10:48:00 AM ATTENTION: The Clinical Documentation Specialists (CDI) and [facility] Coding Staff appreciate your assistance in clarifying documentation. Please respond to the clarification below the line at the bottom and electronically sign. The CDI & [facility] Coding staff will review the response and follow-up if needed. Please note: Queries are made part of the Legal Health Record. If you have any questions, please contact the author of this message via ITS. Dr. Ismael Crum Per ED notes has elevated troponin of .046 and documents "This is likely from demand ischemia as a heart rate was 180." Additional clarification of demand ischemia is needed. Patient History/Risk Factors: Atrial fib, elevated troponins Clinical Indicators: Troponin: .046, .057 EKG Results: SVT, PVC and RBBB Treatment: Cardizem, Cardioverson, Coreg, continue Eliquis Please clarify the diagnosis of demand ischemia: [ ] Demand ischemia due to atrial fib [ ] Type 2 FL from demand ischemia due to atrial fib [ ] Unable to determine [ ] Other Condition, please specify MTDD
--- NOTE | 2022-03-04 15:04 | P.DS ---
Providers Date of admission: 02/02/22 06:30 Attending physician: Reagan Gongora MD Consults: 02/02/22 06:30 Consult Physician Routine Consulting Provider: Royce Alexander Consult Reason/Comments: A-fib rvr Do you want consulting provider notified?: Yes 02/02/22 15:27 Consult Physician Urgent Consulting Provider: Luis Carlos Mott Consult Reason/Comments: Unsteady gait, vertigo Do you want consulting provider notified?: Yes 02/06/22 10:32 Consult Physician Routine Consulting Provider: Zay Mott Consult Reason/Comments: Possible pneumonia Do you want consulting provider notified?: Yes Primary care physician: [place] [facility] Course: Please note patient was not discharged but left AMA Diagnoses: SVT with short RP vs atrial tachycardia Paroxysmal atrial fibrillation status post cardioversion on 02/06, on Eliquis Possible left lower lobe pneumonia, with tree-in-bud appearance Elevated liver enzymes, improving Liver cyst Acute COPD exacerbation Borderline low vitamin B12 Hypertension GERD Dyslipidemia History of osteoporosis Unsteady gait Hospital course 81-year-old lady with past medical history significant for atrial fibrillation, hyperlipidemia, hypertension who presented to the ER because of palpitations. She was all right yesterday night when she went to bed at which time her apple watch notified of her heart rate being in the 170s. At that time patient was also complaining of palpitations. Patient also complaining of dizziness. Patient was brought to the ER of [facility]. Initial EKG showed SVT versus atrial tachycardia with heart rate 170s. Patient was started on IV Cardizem drip and admitted to hospitalist service. 02/06/2022 Patient is seen and evaluated in room at bedside; remains in atrial fibrillation with heart rate ranging between 140s to 160s Vital signs reveal temperature of 97.9, pulse 160, respiration 24 and blood pressure 127/71 - Patient remains on beta blockers and calcium channel blockers; was intolerant of amiodarone which was discontinued Cardiology planning to take patient for cardioversion given uncontrolled heart rate and patient being symptomatic 02/07/2022 Patient is seen and evaluated in ICU; patient underwent cardioversion yesterday after which went into acute respiratory distress and was transferred to ICU for possible aspiration pneumonia/fluid overload -- Patient has an episode of SVT last night which is followed by sinus positive and bradycardia; cardiology is on board and recommending to discontinue Cardizem; and Coreg patient is placed on metoprolol succinate 50 mg twice a day; amlodipine and Dyazide at placed on hold due to softer blood pressures White count 10, hemoglobin 11.3, hematocrit 34.7, and platelet count 176,000. Sodium 131, potassium 3.4, chlorides 92, CO2 29, BUN 23, and creatinine 0.8. AST was 303. ALT was 418. Pro-calcitonin level was 0.59. N-terminal proBNP was 8770. Chest x-ray shows patchy bilateral infiltrates, which are improved on the right, and a bit more significant on the left. Patient has been placed on bronchodilator nebulizer treatments; 4 times a day and when necessary; has been receiving and has been started on IV Zosyn given infiltrates on chest x-ray and pro-calcitonin trending up 02/08/2022 This is a pleasant 81 old female who was admitted with supraventricular tachycardia versus atrial tachycardia and in view of her chronic history of atrial fibrillation she underwent cardioversion ablation on 02/06. Patient currently heart rate is better controlled, actually she was slightly bradycardic and Cardizem dose was lowered to 30 mg 3 times a day. Also patient kept on metoprolol 100 mg. IV Lasix switched to oral dose of 40 mg twice daily and started on entresto Today she still feeling short of breath and tachypnea. She is not on home oxygen and currently she wears 4 L/m. She still have cough with little phlegm. She says she has chronic and steady gait. She's been evaluated by neurologist patient had low appetite but no diarrhea She remains on Zosyn and she still tachypnea. Chest x-ray showing bilateral atypical pneumonia versus CHF. ProBNP and pro-calcitonin both are elevated 8770 and 0.59 respectively. Patient is on home dose of leg was 2.5 mg. We will check a swallow evaluation and bladder scan. 02/09/2022 Patient dyspnea is a slightly better, he still lethargic, his cough is better also Robitussin. He has low appetite but no diarrhea. He is on 2 L oxygen via nasal cannula. Account Representative R following the patient for cardiac arrhythmia, he has chronic atrial fibrillation status post ablation and developed atrial tachycardia, currently his heart rate is in the 50s. Also had CT of the chest showing left lower lobe inflammatory process is suspected with tree-in-bud appearance. Patient currently kept on Zosyn. Also he is on Eliquis and metoprolol per web search evaluator. Also he is on Cardizem per web search evaluator. Liver ultrasound showing hepatocellular disease and an anechoic area near IVC 1.8 x 2.4 x 1.4 cm, liver enzymes are trending down. The patient started on IV Solu-Medrol for possible COPD exacerbation 02/11/2012 Patient states improving in all of her symptoms occluding the dyspnea coughing. She is eating better today with no diarrhea. She was on 2 L oxygen via nasal cannula in the morning. No GI or urinary symptoms. Echocardiogram today showing ejection fraction of 50-55% with severe mitral regurgitation and moderate mitral stenosis. Patient was placed on Cardizem drip. Currently heart rate is more than 100-112. Cardiology been following her closely. She is currently on Lasix 20 mg twice daily. Aldactone 25 mg IV. Heart rate was in the 50s yesterday. We will defer to cardiology for management of cardiac arrhythmia. Patient remains on Zosyn, IV Solu-Medrol, liquids 2.5 mg and other cardiac medications Also patient has elevated liver enzymes trending down, patient will benefit from GI evaluation, no GI service in this facility during this week 02/11/2022 today she's very active and pleasant and sitting up at the age of the bed and denies chest pain or dyspnea and she feels comfortable and not in distress Never the less her heart is still uncontrolled despite several treatment with metoprolol and Cardizem. Currently she was placed from oral dose and the Cardizem drip 10 mg per hour. Heart rate is around 117, asymptomatic. However her pulmonary problem is improving, her pneumonia is improving as well and currently she is on Augmentin and prednisone 40 mg. He will need evaluation for her severe mitral regurgitation and moderate mitral stenosis once rhythm is controlled today patient is known to be transferred to select unit 02/12/2022 Patient is improving each day and slowly, her dyspnea and coughing are better. She has no specific complaints today However she still tachycardic with her trying to 117-125 and she remains on Cardizem drip. Again I informed the patient about her annual Area in the liver that needs to be addressed as an outpatient and recommended for her to follow-up with Dr. Kent, in 1 to 2 weeks after discharge and she verbalized understanding and acceptance She denies any abdominal pain today. She is also on liquids Antibiotics are adjusted and to Augmentin and prednisone 40 mg 02/13/2022 Patient lying in bed with no significant chest pain or dyspnea. She still tachycardic around 112-120. Yesterday her Cardizem drip was stopped on currently she is on Cardizem 60 mg 3 times a day. Her respiratory status is also improved. Repeat labs in the morning. We will ask for PT/OT evaluation. 02/14/2022 Patient is fully awake and oriented 3, she was asymptomatic and she was eager to be discharged. Patient did not want to wait for the blood tests in the morning and wanted to leave AGAINST MEDICAL ADVICE, risks and benefits and alternatives are explained for the patient in details Patient has capacity to make medical decision,. When morning labs were resulted and showing improvement liver enzymes, I came to see the patient, she was sitting in the wheelchair in the hallway she refused to go back to the room stating that she already signed AMA papers and she is leaving All prescription papers for the patient were provided already in the hard copy chart and were confirmed with bedside nurse one by one for complete list. Later confirmed by the bedside nurse patient received all her prescriptions prior to leaving. Patient Condition at Discharge: Stable Plan - Discharge Summary New Discharge Prescriptions: New RX: Spironolactone [Aldactone] 25 mg PO DAILY #30 tab RX: Diltiazem Oral [Cardizem*] 60 mg PO TID #90 tab RX: Furosemide [Lasix] 20 mg PO BID@0900,1600 #60 tab RX: predniSONE 10 mg PO DIRECTED #40 tab RX: Sacubitril/Valsartan [Entresto 24 mg-26 mg Tablet] 1 each PO BID #60 tab RX: Dapagliflozin Propanediol [Farxiga] 10 mg PO DAILY #30 tab RX: Dronedarone [Multaq] 400 mg PO AC-BID #60 tab RX: Metoprolol Succinate (ER) [Toprol XL] 100 mg PO BID #60 tab RX: Cyanocobalamin [Vitamin B-12] 1,000 mcg PO DAILY #30 tab Continue RX: Multivitamins, Thera [Multivitamin (formulary)] 1 tab PO DAILY RX: Calcium Carb/Vitamin D3/Vit K1 [Citracal-D3 500 mg Soft Chew] 1 tab PO DAILY RX: Cholecalciferol (Vitamin D3) [Vitamin D3 (125 MCG = 5,000 IU)] 125 mcg PO DAILY RX: Omeprazole 40 mg PO DAILY RX: Apixaban [Eliquis] 2.5 mg PO BID Discontinued RX: Magnesium 250 mg PO DAILY carvediloL [Coreg] 6.25 mg PO BID Triamterene/Hydrochlorothiazid [Triamterene-Hctz 37.5-25 mg Cp] 1 cap PO DAILY amLODIPine [Norvasc] 2.5 mg PO DAILY Discharge Medication List RX: Multivitamins, Thera [Multivitamin (formulary)] 1 tab PO DAILY 03/14/18 [History] RX: Calcium Carb/Vitamin D3/Vit K1 [Citracal-D3 500 mg Soft Chew] 1 tab PO DAILY 08/27/19 [History] RX: Cholecalciferol (Vitamin D3) [Vitamin D3 (125 MCG = 5,000 IU)] 125 mcg PO DAILY 12/30/20 [History] RX: Apixaban [Eliquis] 2.5 mg PO BID 02/07/21 [History] RX: Omeprazole 40 mg PO DAILY 01/18/22 [History] RX: Cyanocobalamin [Vitamin B-12] 1,000 mcg PO DAILY #30 tab 02/14/22 [Rx] RX: Dapagliflozin Propanediol [Farxiga] 10 mg PO DAILY #30 tab 02/14/22 [Rx] RX: Diltiazem Oral [Cardizem*] 60 mg PO TID #90 tab 02/14/22 [Rx] RX: Dronedarone [Multaq] 400 mg PO AC-BID #60 tab 02/14/22 [Rx] RX: Furosemide [Lasix] 20 mg PO BID@0900,1600 #60 tab 02/14/22 [Rx] RX: Metoprolol Succinate (ER) [Toprol XL] 100 mg PO BID #60 tab 02/14/22 [Rx] RX: Sacubitril/Valsartan [Entresto 24 mg-26 mg Tablet] 1 each PO BID #60 tab 02/14/22 [Rx] RX: Spironolactone [Aldactone] 25 mg PO DAILY #30 tab 02/14/22 [Rx] RX: predniSONE 10 mg PO DIRECTED #40 tab 02/14/22 [Rx] Follow up Appointment(s)/Referral(s): Víctor Narvaez MD [STAFF PHYSICIAN] - 02/09/22 Edvin Stuart MD [Primary Care Provider] - 1-2 days Windy Kent MD [STAFF PHYSICIAN] - 1 Week (hypoechoic area on liver ultrasound ) Zay Mott DO [Doctor of Osteopathic Medicine] - 1 Week Discharge Disposition: Left Against Medical Advice
== END 2022-02-14 10:48 | disposition left against medical advice (07) | DRG 308 ==
LOC: EC 04:18 → 3SCARD 06:30 → 2SICU 02-06 10:52 → 3SCARD 02-11 16:01
PROVIDERS: ADMIT Internal Medicine; ATTEND Internal Medicine
PROC: 5A2204Z Restoration of Cardiac Rhythm, Single (ICD-10-PCS; principal; 2022-02-06 09:58)
DX: I48.0 Paroxysmal atrial fibrillation (principal); I50.23 Acute on chronic systolic (congestive) heart failure; J15.6 Pneumonia due to other Gram-negative bacteria; J96.01 Acute respiratory failure with hypoxia; J44.0 Chronic obstructive pulmonary disease with (acute) lower respiratory infection; J44.1 Chronic obstructive pulmonary disease with (acute) exacerbation; I24.8 Other forms of acute ischemic heart disease; I47.1 Supraventricular tachycardia; I42.8 Other cardiomyopathies; K21.9 Gastro-esophageal reflux disease without esophagitis; K76.89 Other specified diseases of liver; J20.9 Acute bronchitis, unspecified; M06.9 Rheumatoid arthritis, unspecified; I11.0 Hypertensive heart disease with heart failure; I05.2 Rheumatic mitral stenosis with insufficiency; E11.42 Type 2 diabetes mellitus with diabetic polyneuropathy; M17.0 Bilateral primary osteoarthritis of knee; M81.0 Age-related osteoporosis without current pathological fracture; Z20.822 Contact with and (suspected) exposure to COVID-19; R26.81 Unsteadiness on feet; R42 Dizziness and giddiness; Z86.010 Personal history of colon polyps; E78.00 Pure hypercholesterolemia, unspecified; Z79.01 Long term (current) use of anticoagulants; Z79.82 Long term (current) use of aspirin; Z79.84 Long term (current) use of oral hypoglycemic drugs; Z79.899 Other long term (current) drug therapy; Z82.3 Family history of stroke; Z82.49 Family history of ischemic heart disease and other diseases of the circulatory system; Z83.2 Family history of diseases of the blood and blood-forming organs and certain disorders involving the immune mechanism; Z71.3 Dietary counseling and surveillance
CPT/HCPCS: 36415; 71045; 71046; 71260; 76705; 80048; 80053; 80076; 82607; 82746; 83036; 83735; 83880; 84075; 84100; 84132; 84145; 84443; 84450; 84460; 84484; 85025; 85027; 85610; 85730; 87070; 87205; 87635; 92960; 93005; 93306; 94640; 94760; 96365; 96366; 96375; 99291

== ENCOUNTER → 2022-10-12 | Outpatient (CLI) | payer MEDICARE ==
--- NOTE | 2022-10-16 10:16 | MR ---
EXAMINATION TYPE: MR brain wo/w con DATE OF EXAM: 10/12/2022 12:50 PM CLINICAL INDICATION:Female, 81 years old with history of I63.9 CEREBRAL INFARCTION, UNSPECIFIED; soila ent or Evaluate for cerebral infarction. COMPARISON: MRI 03/10/2016 TECHNIQUE: Multi planar, multi sequence imaging was performed through the brain including: T1, T2, In version recovery, susceptibility weighted imaging and gradient echo imaging and Diffusion weighted im aging. The patient was then given intravenous contrast and multi planar, T1 fat-saturation images wer e obtained. IV Contrast: 6.5 cc Gadavist FINDINGS: The quach-white junctions, ventricular system, basal cisterns appear unremarkable. Diffusion-weighted imaging shows no evidence of restricted diffusion to suggest acute/subacute infarct. Intracranial art erial flow voids are maintained. Midline structures show no abnormality. Scattered foci and confluent areas of high T2 signal intensity are seen within the periventricular wh ite matter. This is mildly progressed from prior prior in 2016. Remote injuries of the bilateral cere bellar hemispheres similar to prior. The susceptibility weighted images do not reveal any evidence for micro-hemorrhage. After administrat ion of gadolinium, no abnormal enhancement is seen. The bone marrow signal is within normal limits. Paranasal sinuses and mastoid air cells: Mild scattered paranasal sinus disease. Visualized orbits: Bilateral aphakia IMPRESSION: 1. No evidence of intracranial mass, acute/subacute infarct, or abnormal enhancement. 2. Interval increase in nonspecific white matter changes, likely related to small vessel ischemic dis ease
== END | disposition home or self-care (01) ==
LOC: RADMRIMAIN 11:55
PROVIDERS: ATTEND Internal Medicine Geriatric Medicine
DX: I63.9 Cerebral infarction, unspecified (principal); R90.82 White matter disease, unspecified
CPT/HCPCS: 70553; A9585

== ENCOUNTER → 2022-10-15 | Outpatient (CLI) | payer MEDICARE ==
[2022-10-15 15:19] LABS: Basophils # (A) 0.03 X 10*3/uL (0.00-0.10); Basophils % (A) 0.3 %; Eosinophils # (A) 0.05 X 10*3/uL (0.04-0.35); Eosinophils % (A) 0.4 %; HCT 44.2 % (37.2-46.3); HGB 14.1 g/dL (12.0-15.0); Immature Grans, Automated 0.4 %; Lymphocytes # (A) 0.74 X 10*3/uL (0.90-5.00); Lymphocytes % (A) 6.6 %; MCH 29.6 pg (27.0-32.0); MCHC 31.9 g/dL (32.0-37.0); MCV 92.9 fL (80.0-97.0); Mean Platelet Volume 10.7 fL (9.5-12.2); Monocytes # (A) 0.82 X 10*3/uL (0.20-1.00); Monocytes % (A) 7.4 %; NRBC Per 100 WBC 0 /100 WBCS (0.0-0.0); Neutrophils # (A) 9.44 X 10*3/uL (1.80-7.70); Neutrophils % (A) 84.9 %; Platelet Count 176 X 10*3/uL (140-440); RBC 4.76 X 10*6/uL (4.10-5.20); WBC 11.13 X 10*3/uL (4.50-10.00)
[2022-10-15 15:50] LABS: ALT 39 U/L (8-44); AST 21 U/L (13-35); African American GFR (CKD) 80.1 (60.0-200.0); Albumin 4.2 g/dL (3.8-4.9); Albumin/Globulin Ratio 1.91 (1.60-3.17); Alkaline Phosphatase 72 U/L (41-126); BUN/Creat Ratio 28.88 Ratio (12.00-20.00); Blood Urea Nitrogen 23.1 mg/dL (9.0-27.0); C Reactive Protein <0.30 mg/dL (0.00-0.80); Calcium 9.7 mg/dL (8.7-10.3); Carbon Dioxide 25.8 mmol/L (20.0-27.5); Chloride 101 mmol/L (96-109); Globulin 2.2 g/dL (1.6-3.3); Glucose 109 mg/dL (70-110); Non-African American GFR(CKD) 69.1 (60.0-200.0); Potassium 4.1 mmol/L (3.5-5.5); Sodium 141 mmol/L (135-145); Total Protein 6.4 g/dL (6.2-8.2)
[2022-10-15 16:49] LABS: Erythrocyte Sedimentation Rate 16 mm/Hr (0-30)
== END | disposition home or self-care (01) ==
LOC: LABWHC1 10:21
PROVIDERS: ATTEND Internal Medicine Geriatric Medicine
DX: M35.3 Polymyalgia rheumatica (principal)
CPT/HCPCS: 36415; 80053; 85025; 85652; 86140

== ENCOUNTER → 2022-10-27 | Outpatient (CLI) | payer MEDICARE ==
--- NOTE | 2022-10-27 12:53 | XR ---
EXAMINATION TYPE: XR knee complete bilateral DATE OF EXAM: 10/27/2022 12:42 PM INDICATION: Patient age:Female; 81 years old; Reason for study: M25.569; [facility]. COMPARISON: None. TECHNIQUE: Both knees were examined in frontal, oblique, lateral projections. FINDINGS: No acute fracture or dislocation. Postsurgical changes from bilateral total knee arthropl asty. There is stem components involving the proximal left tibia and distal left femur. Hardware appe ars intact with appropriate alignment. No soft tissue edema or pleural effusion. Vascular sclerosis b ilaterally. IMPRESSION: 1. No acute osseous pathology. 2. Postsurgical arthroplasty changes of both knees. Hardware appears intact with appropriate alignmen t.
== END | disposition home or self-care (01) ==
LOC: RADXRMAIN 12:22
PROVIDERS: ATTEND Internal Medicine Geriatric Medicine
DX: M25.561 Pain in right knee (principal); Z96.651 Presence of right artificial knee joint

== ENCOUNTER → 2022-11-15 | Outpatient (CLI) | payer MEDICARE ==
[2022-11-15 10:19] VITALS: BP 116/82; PULSE 75; RESP 18
--- NOTE | 2022-11-15 14:20 | P.PAINPG ---
PQRS Measure Charge Sheet Comment: HISTORY OF PRESENT ILLNESS: 82 yr old female w at side as a referral from Dr Hamilton presents today w severe and chronic BL Knee Pain secondary to DJD for evaluation. Pt states pain level is provoked at 8 /10 in intensity, constant, localized in the BL knees, burning, dull in character without shooting pain. Pain is provoked by walking/ standing for periods of 5 min or more. Pain is alleviated by PT 2 yrs ago, massage therapy 10 yrs ago, heat, medications (Tyl), repositioning and rest. PMH: OA, Atrial Fibrillation, GERD, Hyperlipidemia, HTN, RA, OP PSH: R Breast Lumpectomy, Section, EPS, BL Knee Replacement, Tonsillectomy, D&Cs, Tubal Ligation, Cardiac Cath, Cardioversions, EPS w Ab lations, Colonoscopy, BL Cataract Removal w Lens Implants SH: Negative x3. and lives w spouse. FH: Fa- Bladder CA, CVA. Mo- NH/ at age 42. Bro- CVA. Bro- Factor V Leiden Deficiency All: See list Meds: See list REVIEW OF ORGAN SYSTEMS: CONSTITUTIONAL: No fevers or chills. No recent weight loss. NEUROLOGICAL: + numbness and tingling along the distal extremities. No seizure disorders or headaches. MUSCULOSKELETAL: + pain PSYCHIATRIC: Denies current depression or suicidal thoughts. Physical Examinations : Constitutional : Cooperative , not in acute distress . Neurologic : Cranial nerve II to XII intact. No focal neurological deficits. Psychiatric : alert & oriented x 3. Matching mood & appropriate affect. Judgment & insight intact. Musculoskeletal : Cervical Spine Motor strength in the deltoid and biceps: Normal right side. Normal Left side Motor strength biceps and the wrist extensors: Normal right side . Normal left side Motor strength in the triceps muscle: Normal right side. Normal left side Deep tendon reflexes: Normal at the biceps. Normal at Brachioradialis. Normal at triceps Vertebral body tenderness to deep palpation over Cervical facet loading test: positive bilaterally Spurling test: positive bilaterally Neck distraction test: positive bilaterally Russ sign: positive bilaterally Lumbar spine Diffuse BL Knee TTP w 1+ suprapatellar non pitting edema Motor strength lower extremities ,thigh and legs 5/5 Right side , 5/5 Left side Deep tendon reflexes : Normal Knee Jerk. Normal Ankle Jerk Vertebral body tenderness over Brand Test positive Lumbar facet Loading Test: positive Right / positive Left Range of motion of the lumbar spine Flexion 30 degrees, extension 10 degrees Straight Leg Raise test: Left/ Right positive at degree Martah test: positive right / positive left. Severe tenderness over the Sacroiliac joint on the Right / Left sides Gaenslen test: positive bilaterally Seated flexion test: positive bilaterally. Sacral spine : Severe tenderness over the Sacroiliac joint: right side / left side Range of motion: Flexion of the lumbar spine <60 degrees Range of motion: Extension of the lumbar spine <20 degrees Gaenslen's Test positive Jason's Test positive Martha test: positive right side / left side Thigh Thrust Test Sacral Thrust Test Imaging: Reviewed Assessment/ Plan : BL Knee OA Recommendation of medication mgmt. Tyl #3 #60 w 1 RF. Use, side effects, adverse reactions and safe storage discussed. Pt will continue to follow up w Dr Stanton for intra articular shoulder steroid injections (She was told she is not a surgical candidate) and will not surpass her safe limits. I have spent greater than 30 minutes on patient care today. Dr Farrell was available by phone for the evaluation of this patient. The time was used to review the medical records including relevant urine studies and Prescription history (MAPs), review of the available imaging, evaluation and examination of the patient, coordination of care with the medical staff and if applicable referring physicians, as well as creation of the medical record PQRS Narrative: Smoking Status Never smoker Home Medications: Ambulatory Orders Multivitamins, Thera [Multivitamin (formulary)] 1 tab PO DAILY 03/14/18 Calcium Carb/Vitamin D3/Vit K1 [Citracal-D3 500 mg Soft Chew] 1 tab PO DAILY 08/27/19 Cholecalciferol (Vitamin D3) [Vitamin D3 (125 MCG = 5,000 IU)] 125 mcg PO DAILY 12/30/20 Apixaban [Eliquis] 2.5 mg PO BID 02/07/21 Omeprazole 40 mg PO DAILY 01/18/22 Cyanocobalamin [Vitamin B-12] 1,000 mcg PO DAILY #30 tab 02/14/22 Dapagliflozin Propanediol [Farxiga] 10 mg PO DAILY #30 tab 02/14/22 Diltiazem Oral [Cardizem*] 60 mg PO TID #90 tab 02/14/22 Dronedarone [Multaq] 400 mg PO AC-BID #60 tab 02/14/22 Furosemide [Lasix] 20 mg PO BID@0900,1600 #60 tab 02/14/22 Metoprolol Succinate (ER) [Toprol XL] 100 mg PO BID #60 tab 02/14/22 Sacubitril/Valsartan [Entresto 24 mg-26 mg Tablet] 1 each PO BID #60 tab 02/14/22 Spironolactone [Aldactone] 25 mg PO DAILY #30 tab 02/14/22 predniSONE 10 mg PO DIRECTED #40 tab 02/14/22 Acetaminophen-Codeine 300-30mg [Tylenol w/codeine #3] 1 tab PO BID PRN 30 Days #60 tablet 11/15/22 Controlled Substance Measures - Controlled Substance Measures Is patient prescribed a controlled substance at discharge?: Yes When asked, does pt state using other controlled substances?: No If prescribed controlled substance>3 days was MAPS reviewed?: Yes If Rx opioid, was Start Talking consent form obtained?: Yes Was information provided regarding opioid addiction?: Yes
== END ==
LOC: PNWHC3 08:29
PROVIDERS: ATTEND Specialist
DX: M17.0 Bilateral primary osteoarthritis of knee (principal); G89.29 Other chronic pain; I48.91 Unspecified atrial fibrillation; K21.9 Gastro-esophageal reflux disease without esophagitis; I10 Essential (primary) hypertension; M06.9 Rheumatoid arthritis, unspecified; Z91.048 Other nonmedicinal substance allergy status; Z79.899 Other long term (current) drug therapy; Z79.01 Long term (current) use of anticoagulants; Z96.653 Presence of artificial knee joint, bilateral
CPT/HCPCS: 99211

== ENCOUNTER 2022-12-08 09:18 | Observation (INO) | payer MEDICARE ==
[2022-12-08] MEDS ORDERED: SODIUM CHLORIDE 0.9% 500 ML 500 ML IV ONE (09:37)
[2022-12-08] MEDS ORDERED: DILTIAZEM DRIP BOLUS FROM BAG 1 MG SOLN IV ONE (09:45)
--- NOTE | 2022-12-08 09:51 | ED ---
General Adult HPI - General Chief complaint: Arrhythmia/Palpitations Stated complaint: AFIB Time Seen by Provider: 12/08/22 09:30 Source: patient, RN notes reviewed, old records reviewed Mode of arrival: ambulatory Limitations: no limitations - History of Present Illness Initial comments: 82-year-old female presenting for evaluation of palpitations. Patient has known history of atrial fibrillation status post multiple ablations. She states she's been in sinus rhythm for many months most recent ablation was in April 2022. She is on Eliquis, no beta blockers or calcium channel terry. She denies central chest pain. She reports mild dyspnea and bilateral lower extremity swelling. - Related Data Home Medications Medication Instructions Recorded Confirmed Apixaban [Eliquis] 5 mg PO BID 12/08/22 12/08/22 Atorvastatin [Lipitor] 20 mg PO HS 12/08/22 12/08/22 Cholecalciferol (Vitamin D3) 75 mcg PO DAILY 12/08/22 12/08/22 [Vitamin D3 (3000 Iu)] Cyanocobalamin (Vitamin B-12) 1,000 mcg PO DAILY 12/08/22 12/08/22 [Vitamin B-12] Gabapentin 300 mg PO BID 12/08/22 12/08/22 Triamterene/Hydrochlorothiazid 1 tab PO DAILY 12/08/22 12/08/22 [Triamterene-Hctz 37.5-25 mg Tb] Previous Rx's Medication Instructions Recorded Acetaminophen-Codeine 300-30mg 1 tab PO BID PRN 30 Days #60 tablet 11/15/22 [Tylenol w/codeine #3] Allergies Allergy/AdvReac Type Severity Reaction Status Date / Time contact metal agent Allergy Unknown Unknown Verified 12/08/22 10:58 adhesive tape Allergy Rash/Hives Verified 12/08/22 10:58 nickel Allergy burning, Verified 12/08/22 10:58 pain Review of Systems ROS Statement: Those systems with pertinent positive or pertinent negative responses have been documented in the HPI. ROS Other: All systems not noted in ROS Statement are negative. Past Medical History Past Medical History: Atrial Fibrillation, GERD/Reflux, Hyperlipidemia, Hypertension, Osteoarthritis (OA), Rheumatoid Arthritis (RA) Additional Past Medical History / Comment(s): Paroxysmal afib, cardiac tamponade/pericardial window, possible rheumatoid arthritis, osteoporosis, diver ticular disease, benign colon polp. History of Any Multi-Drug Resistant Organisms: None Reported Past Surgical History: Breast Surgery, Section, EPS, Joint Replacement, Tonsillectomy, Tubal Ligation Additional Past Surgical History / Comment(s): Cardioversions, EPS with ablations, pericardial window, bilateral total knee replacements, D&Cs, R breast benign lumpectomy, colonoscopy, bilateral cataract removals/lens implants Past Anesthesia/Blood Transfusion Reactions: Postoperative Nausea & Vomiting (PONV) Additional Past Anesthesia/Blood Transfusion Reaction / Comment(s): Pt has 2U PRBCs with a heart cath. Cath punctured a hole in her heart, and she ended up needing open heart surgery. Past Psychological History: No Psychological Hx Reported Smoking Status: Never smoker - Past Family History Father Family Medical History: Cancer, CVA/TIA Additional Family Medical History / Comment(s): Father at age 80 from bladder cancer, with history of CVA. Mother Family Medical History: Myocardial Infarction ([place]) Additional Family Medical History / Comment(s): Mother at age 42 from a myocardial infarction. Brother(s) Family Medical History: Blood Disorder, CVA/TIA Additional Family Medical History / Comment(s): Patient was 4 brothers and one has history of factor V, 3 have had strokes. General Exam Limitations: no limitations General appearance: alert, in no apparent distress Head exam: Present: atraumatic, normocephalic Eye exam: Present: normal appearance, PERRL ENT exam: Present: normal exam Neck exam: Present: normal inspection. Absent: tenderness Respiratory exam: Present: normal lung sounds bilaterally. Absent: respiratory distress, wheezes Cardiovascular Exam: Present: tachycardia, irregular rhythm GI/Abdominal exam: Present: soft. Absent: distended Extremities exam: Present: pedal edema Neurological exam: Present: alert, oriented X3, CN II-XII intact. Absent: motor sensory deficit Psychiatric exam: Present: normal affect, normal mood Skin exam: Present: warm, dry, intact. Absent: cyanosis, diaphoretic Course Vital Signs 12/08/22 12/08/22 12/08/22 09:20 09:34 10:30 Temperature 98.6 F Pulse Rate 58 L 98 105 H Respiratory 18 29 H 30 H Rate Blood Pressure 186/85 138/92 102/74 O2 Sat by Pulse 95 95 95 Oximetry Medical Decision Making - Medical Decision Making Was pt. sent in by a medical professional or institution ([facility] Arguello, INDUSTRIAL PSYCHOLOGY TEACHER, urgent care, hospital, or correction...) When possible be specific @ -No Did you speak to anyone other than the patient for history (EMS, parent, family, police, friend...)? What history was obtained from this source @ -No Did you review nursing and triage notes (agree or disagree)? Why? @ -I reviewed and agree with nursing and triage notes Were old charts reviewed (outside hosp., previous admission, EMS record, old EKG, old radiological studies, urgent care reports/EKG's, correction records)? Report findings @ -No old charts were reviewed Differential Diagnosis (chest pain, altered mental status, abdominal pain women, abdominal pain men, vaginal bleeding, weakness, fever, dyspnea, syncope, heada petra, dizziness, GI bleed, back pain, seizure, CVA, palpatations, mental health, musculoskeletal)? @ -[Differential Palpitations Ventricular arrhythmias, atrial arrhythmias, myocardial infarction, anemia, thyrotoxicosis, electrolyte imbalance, hypokalemia, pulmonary embolism, pul monary disease, drugs, alcohol, anxiety, stress.... This is not meant to be an all-inclusive list. EKG interpreted by me (3pts min.). @ -Atrial fibrillation with RVR rate of 111, frequent PVC, QS duration 92, QTC 388, no ST segment elevation. X-rays interpreted by me (1pt min.). @ Mild pulmonary vascular prominence CT interpreted by me (1pt min.). @ -None done U/S interpreted by me (1pt. min.). @ -None done What testing was considered but not performed or refused? (CT, X-rays, U/S, labs)? Why? @ -None What meds were considered but not given or refused? Why? @ -None Did you discuss the management of the patient with other professionals (professionals i.e. [facility] Arguello, INDUSTRIAL PSYCHOLOGY TEACHER, lab, RT, psych nurse, oncology social work, sexual health physician, teacher, procurement officer, case making machine operator)? Give summary @ -[EMH Was smoking cessation discussed for >3mins.? @ -No Was critical care preformed (if so, how long)? @ -[Yes, 35 minutes Were there social determinants of health that impacted care today? How? (Homelessness, low income, unemployed, alcoholism, drug addiction, t ransportation, low edu. Level, literacy, decrease access to med. care, residential, rehab)? @ -No Was there de-escalation of care discussed even if they declined (Discuss DNR or withdrawal of care, Hospice)? DNR status @ -No What co-morbidities impacted this encounter? (DM, HTN, Smoking, COPD, CAD, Cancer, CVA, ARF, Chemo, Hep., AIDS, mental health diagnosis, sleep apnea, morbid obesity)? @ -Atrial fibrillation Was patient admitted / discharged? Hospital course, mention meds given and rou te, prescriptions, significant lab abnormalities, going to OR and other pertinent info. @ 82-year-old female with palpitation, patient found to be in atrial fibrillation with RVR. Laboratory studies performed, chest x-ray showing mild ulnar a vascular prominence, no other acute findings. Patient will require admission for rate control. Case discussed with Dr. Munoz. Cardiology placed on consult Undiagnosed new problem with uncertain prognosis? @ -No Drug Therapy requiring intensive monitoring for toxicity (Heparin, Nitro, Insulin, Cardizem)? @ -No Were any procedures done? @ -No Diagnosis/symptom? @ -[A fibrillation with RVR Acute, or Chronic, or Acute on Chronic? @ -Acute Uncomplicated (without systemic symptoms) or Complicated (systemic symptoms)? @ -default Side effects of treatment? @ -No Exacerbation, Progression, or Severe Exacerbation? @ -No Poses a threat to life or bodily function? How? (Chest pain, [place], [place], pneumonia, PE, COPD, DKA, ARF, appy, cholecystitis, CVA, Diverticulitis, Homicidal, Suicidal, threat to staff... and all critical care pts) @ -yes , arrhythmia - Lab Data Result diagrams: 12/08/22 09:35 12/08/22 09:35 Lab Results 12/08/22 12/08/22 12/08/22 Range/Units 09:35 09:35 09:35 WBC 8.9 (3.8-10.6) k/uL RBC 4.63 (3.80-5.40) m/uL Hgb 14.0 (11.4-16.0) gm/dL Hct 42.0 (34.0-46.0) % MCV 90.7 (80.0-100.0) fL MCH 30.2 (25.0-35.0) pg MCHC 33.3 (31.0-37.0) g/dL RDW 15.1 (11.5-15.5) % Plt Count 209 (150-450) k/uL MPV 8.0 Neutrophils % 80 % Lymphocytes % 11 % Monocytes % 5 % Eosinophils % 2 % Basophils % 0 % Neutrophils # 7.1 (1.3-7.7) k/uL Lymphocytes # 1.0 (1.0-4.8) k/uL Monocytes # 0.4 (0-1.0) k/uL Eosinophils # 0.2 (0-0.7) k/uL Basophils # 0.0 (0-0.2) k/uL PT 23.9 H (9.0-12.0) sec INR 2.4 H (<1.2) APTT 44.8 H (22.0-30.0) sec Sodium 137 (137-145) mmol/L Potassium 3.7 (3.5-5.1) mmol/L Chloride 104 (98-107) mmol/L Carbon Dioxide 27 (22-30) mmol/L Anion Gap 6 mmol/L BUN 23 H (7-17) mg/dL Creatinine 0.60 (0.52-1.04) mg/dL Est GFR (CKD-EPI)AfAm >90 (>60 ml/min/1.73 sqM) Est GFR (CKD-EPI)NonAf 85 (>60 ml/min/1.73 sqM) Glucose 151 H (74-99) mg/dL Calcium 8.9 (8.4-10.2) mg/dL Magnesium 1.9 (1.6-2.3) mg/dL Total Bilirubin 1.3 (0.2-1.3) mg/dL AST 41 H (14-36) U/L ALT 38 H (4-34) U/L Alkaline Phosphatase 80 (38-126) U/L Troponin I (0.000-0.034) ng/mL Total Protein 6.1 L (6.3-8.2) g/dL Albumin 3.5 (3.5-5.0) g/dL TSH 1.820 (0.465-4.680) mIU/L 12/08/22 Range/Units 09:35 WBC (3.8-10.6) k/uL RBC (3.80-5.40) m/uL Hgb (11.4-16.0) gm/dL Hct (34.0-46.0) % MCV (80.0-100.0) fL MCH (25.0-35.0) pg MCHC (31.0-37.0) g/dL RDW (11.5-15.5) % Plt Count (150-450) k/uL MPV Neutrophils % % Lymphocytes % % Monocytes % % Eosinophils % % Basophils % % Neutrophils # (1.3-7.7) k/uL Lymphocytes # (1.0-4.8) k/uL Monocytes # (0-1.0) k/uL Eosinophils # (0-0.7) k/uL Basophils # (0-0.2) k/uL PT (9.0-12.0) sec INR (<1.2) APTT (22.0-30.0) sec Sodium (137-145) mmol/L Potassium (3.5-5.1) mmol/L Chloride (98-107) mmol/L Carbon Dioxide (22-30) mmol/L Anion Gap mmol/L BUN (7-17) mg/dL Creatinine (0.52-1.04) mg/dL Est GFR (CKD-EPI)AfAm (>60 ml/min/1.73 sqM) Est GFR (CKD-EPI)NonAf (>60 ml/min/1.73 sqM) Glucose (74-99) mg/dL Calcium (8.4-10.2) mg/dL Magnesium (1.6-2.3) mg/dL Total Bilirubin (0.2-1.3) mg/dL AST (14-36) U/L ALT (4-34) U/L Alkaline Phosphatase (38-126) U/L Troponin I 0.028 (0.000-0.034) ng/mL Total Protein (6.3-8.2) g/dL Albumin (3.5-5.0) g/dL TSH (0.465-4.680) mIU/L Critical Care Time Critical Care Time: Yes Total Critical Care Time: 35 Disposition Clinical Impression: Atrial fibrillation with RVR Disposition: ADMITTED IP TO THIS [facility] Condition: Stable Is patient prescribed a controlled substance at d/c from ED?: No Referrals: Edvin Stuart MD [Primary Care Provider] - 1-2 days Time of Disposition: 11:09
[2022-12-08 09:53] LABS: Basophils % (A) 0 %; Eosinophils # (A) 0.2 k/uL (0-0.7); Eosinophils % (A) 2 %; Lymphocytes % (A) 11 %; MCH 30.2 pg (25.0-35.0); MCHC 33.3 g/dL (31.0-37.0); MCV 90.7 fL (80.0-100.0); Monocytes # (A) 0.4 k/uL (0-1.0); Monocytes % (A) 5 %; Neutrophils # (A) 7.1 k/uL (1.3-7.7); Neutrophils % (A) 80 %; Platelet Count 209 k/uL (150-450); RBC 4.63 m/uL (3.80-5.40); RDW 15.1 % (11.5-15.5); WBC 8.9 k/uL (3.8-10.6)
[2022-12-08 10:04] LABS: INR 2.4 (<1.2); Partial Thromboplastin Time 44.8 sec (22.0-30.0); Prothrombin Time 23.9 sec (9.0-12.0)
[2022-12-08] MEDS: DILTIAZEM 125 MG in SODIUM CHLORIDE 0.9% 100 ML IV SCH (10:13)
--- NOTE | 2022-12-08 10:15 | XR ---
EXAMINATION TYPE: XR chest 2V DATE OF EXAM: 12/08/2022 COMPARISON: 02/09/2022, 02/07/2021 INDICATION: Heart palpitations TECHNIQUE: Frontal and lateral views of the chest are obtained. FINDINGS: The heart size is mildly prominent, diminished from prior exam. The pulmonary vasculature is somewhat prominent. No suspicious focal consolidations are evident. Previous right pleural fluid has resolved. There is p ersistent nodule at the left diaphragm. No new suspicious densities evident. IMPRESSION: 1. No acute pulmonary process. 2. Mild cardiomegaly, improved from prior's exam. 3. Mild vascular prominence. 4. Stable nodule left lung base
[2022-12-08 10:25] LABS: ALT 38 U/L (4-34); AST 41 U/L (14-36); African American GFR (CKD) >90 (>60 ml/min/1.73 sqM); Albumin 3.5 g/dL (3.5-5.0); Alkaline Phosphatase 80 U/L (38-126); Anion Gap 6 mmol/L; Blood Urea Nitrogen 23 mg/dL (7-17); Calcium 8.9 mg/dL (8.4-10.2); Carbon Dioxide 27 mmol/L (22-30); Chloride 104 mmol/L (98-107); Glucose 151 mg/dL (74-99); Magnesium 1.9 mg/dL (1.6-2.3); Non-African American GFR(CKD) 85 (>60 ml/min/1.73 sqM); Potassium 3.7 mmol/L (3.5-5.1); Sodium 137 mmol/L (137-145); Total Bilirubin 1.3 mg/dL (0.2-1.3); Total Protein 6.1 g/dL (6.3-8.2)
[2022-12-08] MEDS ORDERED: ONDANSETRON 4 MG/2 ML VIAL IVP PRN (11:04)
[2022-12-08] MEDS ORDERED: NALOXONE 0.4 MG/ML 1 ML VIAL IV PRN (11:04)
[2022-12-08] MEDS ORDERED: Acetaminophen-Codeine 300-30mg TAB PO PRN (14:17)
--- NOTE | 2022-12-08 14:21 | P.HPIM ---
History of Present Illness H&P Date: 12/08/22 History of present illness; patient is a 82-year-old lady with past medical hist ory significant for atrial fibrillation status post multiple ablations, hypertension, hyperlipidemia presented to the ER because of generalized feeling of not feeling well. Patient stated that her last ablation was last year in April. Patient stated that she was not feeling well for the last few days, was having feeling of palpitations. This morning she woke up with her Smart watch stating that she was in A. fib with RVR. Denied any orthopnea or PND. Denied any chest pressure. Patient was complaining of some shortness of breath. Because of these palpitation, patient came to the ER Initial lab work done in the ER showed WBC 8.9, hemoglobin 14, platelet count 209, sodium 1 and 3.7, BUN 22, creatinine 0.60, AST 41 troponin 0.028 EKG done in the ER A. fib with RVR Chest x-ray done in the ER no acute pulmonary process, mild cardiomegaly, mild vascular prominence Patient admitted to medicine service REVIEW OF SYSTEMS: CONSTITUTIONAL: No fever, complaining of tiredness and malaise HEENT: No recent visual problems or hearing problems. Denied any sore throat. CARDIOVASCULAR: As mentioned in HPI PULMONARY: No shortness of breath, no cough, no hemoptysis. GASTROINTESTINAL: No diarrhea, no nausea, no vomiting, no abdominal pain. NEUROLOGICAL: No headaches, no weakness, no numbness. HEMATOLOGICAL: Denies any bleeding or petechiae. GENITOURINARY: Denies any burning micturition, frequency, or urgency. MUSCULOSKELETAL/RHEUMATOLOGICAL: Denies any joint pain, swelling, or any muscle pain. ENDOCRINE: Denies any polyuria or polydipsia. The rest of the 14-point review of systems is negative. PHYSICAL EXAMINATION: GENERAL: The patient is alert and oriented x3, not in any acute distress. Well developed, well nourished. HEENT: Pupils are round and equally reacting to light. EOMI. No scleral icterus. No conjunctival pallor. Normocephalic, atraumatic. No pharyngeal erythema. No thyromegaly. CARDIOVASCULAR: S1 and S2 present. No murmurs, rubs, or gallops. Irregular, tachycardic PULMONARY: Chest is clear to auscultation, no wheezing or crackles. ABDOMEN: Soft, nontender, nondistended, normoactive bowel sounds. No palpable organomegaly. MUSCULOSKELETAL: No joint swelling or deformity. EXTREMITIES: No cyanosis, clubbing, or pedal edema. NEUROLOGICAL: Gross neurological examination did not reveal any focal deficits. SKIN: No rashes. Assessment and plan A. fib with RVR Hyperlipidemia Hypertension Monitor vital signs Monitor CBC Monitor CMP Continue telemetry monitoring Continue Cardizem drip Continue Eliquis Continue to resume home meds Consult cardiology Labs and medication were reviewed.. Continue same treatment. Continue with symptomatic treatment. Resume home medication. Monitor labs and vitals. DVT and GI prophylaxis. Further recommendations as per clinical course of the patient Dictation was produced using [employer] dictation software. please excuse any grammatical, word or spelling errors. Past Medical History Past Medical History: Atrial Fibrillation, GERD/Reflux, Hyperlipidemia, Hypertension, Osteoarthritis (OA), Rheumatoid Arthritis (RA) Additional Past Medical History / Comment(s): Paroxysmal afib, cardiac tamponade/pericardial window, possible rheumatoid arthritis, osteoporosis, diverticular disease, benign colon polp. History of Any Multi-Drug Resistant Organisms: None Reported Past Surgical History: Breast Surgery, Section, EPS, Joint Replacement, Tonsillectomy, Tubal Ligation Additional Past Surgical History / Comment(s): Cardioversions, EPS with abl ations, pericardial window, bilateral total knee replacements, D&Cs, R breast benign lumpectomy, colonoscopy, bilateral cataract removals/lens implants Past Anesthesia/Blood Transfusion Reactions: Postoperative Nausea & Vomiting (PONV) Additional Past Anesthesia/Blood Transfusion Reaction / Comment(s): Pt has 2U PRBCs with a heart cath. Cath punctured a hole in her heart, and she ended up needing open heart surgery. Past Psychological History: No Psychological Hx Reported Smoking Status: Never smoker - Past Family History Father Family Medical History: Cancer, CVA/TIA Additional Family Medical History / Comment(s): Father at age 80 from bladder cancer, with history of CVA. Mother Family Medical History: Myocardial Infarction ([place]) Additional Family Medical History / Comment(s): Mother at age 42 from a myocardial infarction. Brother(s) Family Medical History: Blood Disorder, CVA/TIA Additional Family Medical History / Comment(s): Patient was 4 brothers and one has history of factor V, 3 have had strokes. Medications and Allergies Home Medications Medication Instructions Recorded Confirmed Type Acetaminophen-Codeine 300-30mg 1 tab PO BID PRN 30 Days #60 tablet 11/15/22 12/08/22 Rx [Tylenol w/codeine #3] Apixaban [Eliquis] 5 mg PO BID 12/08/22 12/08/22 History Atorvastatin [Lipitor] 20 mg PO HS 12/08/22 12/08/22 History Cholecalciferol (Vitamin D3) 75 mcg PO DAILY 12/08/22 12/08/22 History [Vitamin D3 (3000 Iu)] Cyanocobalamin (Vitamin B-12) 1,000 mcg PO DAILY 12/08/22 12/08/22 History [Vitamin B-12] Gabapentin 300 mg PO BID 12/08/22 12/08/22 History Triamterene/Hydrochlorothiazid 1 tab PO DAILY 12/08/22 12/08/22 History [Triamterene-Hctz 37.5-25 mg Tb] Allergies Allergy/AdvReac Type Severity Reaction Status Date / Time contact metal agent Allergy Unknown Unknown Verified 12/08/22 10:58 adhesive tape Allergy Rash/Hives Verified 12/08/22 10:58 nickel Allergy burning, Verified 12/08/22 10:58 pain Physical Exam Vitals: Vital Signs Temp Pulse Resp BP Pulse Ox 12/08/22 12:00 79 12 133/107 95 12/08/22 11:30 99 18 141/88 95 12/08/22 11:00 80 24 119/108 92 L 12/08/22 10:30 105 H 30 H 102/74 95 12/08/22 09:34 98 29 H 138/92 95 12/08/22 09:20 98.6 F 58 L 18 186/85 95 Intake and Output 12/07/22 12/08/22 12/08/22 22:59 06:59 14:59 Other: Weight 63.503 kg Results CBC & Chem 7: 12/08/22 09:35 12/08/22 09:35 Labs: Abnormal Lab Results - Last 24 Hours (Table) 12/08/22 12/08/22 Range/Units 09:35 09:35 PT 23.9 H (9.0-12.0) sec INR 2.4 H (<1.2) APTT 44.8 H (22.0-30.0) sec BUN 23 H (7-17) mg/dL Glucose 151 H (74-99) mg/dL AST 41 H (14-36) U/L ALT 38 H (4-34) U/L Total Protein 6.1 L (6.3-8.2) g/dL
[2022-12-08] MEDS: APIXABAN 5 MG TAB PO SCH (19:38)
[2022-12-08] MEDS: ATORVASTATIN 20 MG TAB PO SCH (19:38)
[2022-12-08] MEDS: GABAPENTIN 300 MG CAP PO SCH (19:38)
[2022-12-09] MEDS: DILTIAZEM 125 MG in SODIUM CHLORIDE 0.9% 100 ML IV SCH (04:54)
[2022-12-09] MEDS: APIXABAN 5 MG TAB PO SCH ×2 (08:24→19:48)
[2022-12-09] MEDS: GABAPENTIN 300 MG CAP PO SCH ×2 (08:24→19:48)
[2022-12-09] MEDS: CHOLECALCIFEROL 25 MCG (1000 IU) TABLET PO SCH (08:24)
[2022-12-09] MEDS: CYANOCOBALAMIN 500 MCG TAB PO SCH (08:24)
[2022-12-09] MEDS ORDERED: carvediloL 6.25 MG TAB PO SCH (11:30)
[2022-12-09] MEDS: TRIAMTERENE-HCTZ 37.5-25MG 1 EACH TAB PO SCH (12:22)
[2022-12-09 12:38] VITALS: BMI 24.0
--- NOTE | 2022-12-09 13:05 | P.CRDCN ---
History of Present Illness Consult date: 12/09/22 Consult reason: atrial fibrillation (w rvr) History of present illness: This is an 82-year-old female patient of Dr. Narvaez with a past medical history of paroxysmal atrial fibrillation status post cardioversion x2,and A fib ablation x2 with Dr Narvaez most recently had an ablation done at [facility] in 04/23/2022. History of hypertension, GERD, dyslipidemia, osteoporosis. We have been asked to see in consultation for atrial fibrillation. She did not feel well and her watch told her that she went into atrial fibrillation. Patient states that she has been in a sinus rhythm since her last ablation in April 2022. For the past month, she has decreased appetite and weight loss, tiredness and fatigue. Yesterday, her watch told her that she was in atrial fibrillation up to 160 bpm. She came into [facility] emergency center for evaluation. Patient denies having any fever, no chills, no cough, no urinary tract infection, no chest pain. No shortness of breath. She denies lightheadedness or dizziness. She states she does not usually feel that she is in atrial fibrillation but her watch tells her that. Telemetry is atrial fibrillation in the 70s and 80s. Patient was started on Cardizem drip. . EKG reveals sinus with ventricular rate of 111 Chest x-ray no acute process. Mild cardiomegaly. Mild vascular prominence. Stable nodule left lung base. WBC 8.9, hemoglobin 14, platelet count 209. INR 2.4. Electrolytes normal, BUN 23 creatinine 0.6. Blood sugar 151. Troponins negative 3. AST 41, ALT 30, alkaline phosphatase 80. TSH 1.8-0 Cardiac catheterization 01/19/2022 revealed normal coronary arteries Echocardiogram 02/10 revealed normal LV systolic function, severe mitral calcification with severe mitral regurgitation, moderate mitral stenosis Current home medications include eliquis 5 mg twice daily, triamtereneDyazide 37. 525 milligrams daily REVIEW OF SYSTEMS At the time of my exam: CONSTITUTIONAL: Denies fever or chills. Positive generalized weakness and body aches CARDIOVASCULAR: Denies hest pain, denies shortness of breath, orthopnea, PND or palpitations. RESPIRATORY: Denies cough. GASTROINTESTINAL: Denies abdominal pain, diarrhea, constipation, nausea or vomiting. MUSCULOSKELETAL: Denies myalgias. NEUROLOGIC: Denies numbness, tingling, headache or weakness. ENDOCRINE: Denies fatigue, weight change, polydipsia or polyurina. GENITOURINARY: Denies burning, hematuria or urgency with micturation. HEMATOLOGIC: Denies history of anemia or bleeding. PHYSICAL EXAMINATION Blood pressure 142/89, HR 79, afebrile 96% on room air CONSTITUTIONAL: No apparent distress. HEENT: Head is normocephalic. Pupils are equal, round. Sclerae anicteric. Mucous membranes of the mouth are moist. No JVD. No carotid bruit. CHEST EXAMINATION: Lungs are clear to auscultation. HEART EXAMINATION: Irregular rate and rhythm. S1, S2 heard. Systolic murmur at the base. ABDOMEN: Soft, nontender. Positive bowel sounds. EXTREMITIES: 2+ peripheral pulses, no lower extremity edema and no calf tenderness. NEUROLOGIC EXAMINATION: Patient is awake, alert and oriented x3. ASSESSMENT Vague symptoms with fatigue and loss of appetite Paroxysmal atrial fibrillation status post cardioversion 2 and Ablation 3, on Eliquis Hypertension GERD Dyslipidemia History of osteoporosis PLAN Stop IV Cardizem Resume home cardiac medications Continue to monitor patient for additional 24 hours Further recommendations based on clinical course Nurse practitioner note has been reviewed by physician. Signing provider agrees with the documented findings, assessment, and plan of care. Past Medical History Past Medical History: Atrial Fibrillation, GERD/Reflux, Hyperlipidemia, Hypertension, Osteoarthritis (OA), Rheumatoid Arthritis (RA) Additional Past Medical History / Comment(s): Paroxysmal afib, cardiac tamponade/pericardial window, possible rheumatoid arthritis, osteoporosis, diverticular disease, benign colon polp. History of Any Multi-Drug Resistant Organisms: None Reported Past Surgical History: Breast Surgery, Section, EPS, Joint Replacement, Tonsillectomy, Tubal Ligation Additional Past Surgical History / Comment(s): Cardioversions, EPS with ablations, pericardial window, bilateral total knee replacements, D&Cs, R breast benign lumpectomy, colonoscopy, bilateral cataract removals/lens implants Past Anesthesia/Blood Transfusion Reactions: Postoperative Nausea & Vomiting (PONV) Additional Past Anesthesia/Blood Transfusion Reaction / Comment(s): Pt has 2U PRBCs with a heart cath. Cath punctured a hole in her heart, and she ended up needing open heart surgery. Past Psychological History: No Psychological Hx Reported Additional Psychological History / Comment(s): Pt resides with her spouse. She is independent. Smoking Status: Never smoker Past Alcohol Use History: Rare Additional Past Alcohol Use History / Comment(s): Patient is a lifelong nonsmoker, no alcohol use, no illicit drug use or marijuana use. Patient does not require CPAP, oxygen. She is ambulatory without equipment. Past Drug Use History: None Reported - Past Family History Father Family Medical History: Cancer, CVA/TIA Additional Family Medical History / Comment(s): Father at age 80 from bladder cancer, with history of CVA. Mother Family Medical History: Myocardial Infarction ([place]) Additional Family Medical History / Comment(s): Mother at age 42 from a myocardial infarction. Brother(s) Family Medical History: Blood Disorder, CVA/TIA Additional Family Medical History / Comment(s): Patient was 4 brothers and one has history of factor V, 3 have had strokes. Medications and Allergies Home Medications Medication Instructions Recorded Confirmed Type Acetaminophen-Codeine 300-30mg 1 tab PO BID PRN 30 Days #60 tablet 11/15/22 12/08/22 Rx [Tylenol w/codeine #3] Apixaban [Eliquis] 5 mg PO BID 12/08/22 12/08/22 History Atorvastatin [Lipitor] 20 mg PO HS 12/08/22 12/08/22 History Cholecalciferol (Vitamin D3) 75 mcg PO DAILY 12/08/22 12/08/22 History [Vitamin D3 (3000 Iu)] Cyanocobalamin (Vitamin B-12) 1,000 mcg PO DAILY 12/08/22 12/08/22 History [Vitamin B-12] Gabapentin 300 mg PO BID 12/08/22 12/08/22 History Triamterene/Hydrochlorothiazid 1 tab PO DAILY 12/08/22 12/08/22 History [Triamterene-Hctz 37.5-25 mg Tb] Allergies Allergy/AdvReac Type Severity Reaction Status Date / Time contact metal agent Allergy Unknown Unknown Verified 12/08/22 10:58 adhesive tape Allergy Rash/Hives Verified 12/08/22 10:58 nickel Allergy burning, Verified 12/08/22 10:58 pain Physical Exam Vitals: Vital Signs Temp Pulse Pulse Resp BP BP BP 12/09/22 08:00 97.5 F L 79 18 142/89 12/09/22 04:00 76 18 162/73 12/09/22 00:00 66 18 138/84 12/08/22 20:00 98.1 F 95 18 157/67 12/08/22 18:13 98.3 F 100 18 156/86 12/08/22 17:00 90 20 112/81 12/08/22 16:00 95 30 H 12/08/22 15:00 79 18 169/89 12/08/22 14:00 85 16 157/92 12/08/22 13:00 80 12 162/106 12/08/22 12:00 79 12 133/107 12/08/22 11:30 99 18 141/88 12/08/22 11:00 80 24 119/108 12/08/22 10:30 105 H 30 H 102/74 12/08/22 09:34 98 29 H 138/92 12/08/22 09:20 98.6 F 58 L 18 186/85 Pulse Ox 12/09/22 08:00 96 12/09/22 04:00 97 12/09/22 00:00 100 12/08/22 20:00 93 L 12/08/22 18:13 98 12/08/22 17:00 94 L 12/08/22 16:00 93 L 12/08/22 15:00 93 L 12/08/22 14:00 95 12/08/22 13:00 96 12/08/22 12:00 95 12/08/22 11:30 95 12/08/22 11:00 92 L 12/08/22 10:30 95 12/08/22 09:34 95 12/08/22 09:20 95 Intake and Output 12/08/22 12/09/22 12/09/22 22:59 06:59 14:59 Intake Total 633.417 120 Balance 633.417 120 Intake: Intake, IV Titration 633.417 Amount Diltiazem 125 mg In 93.417 Sodium Chloride 0.9% 100 ml @ 5 MG/HR 5 mls/hr IV .Q24H [facility] Rx#:[id number] Sodium Chloride 0.9% 500 540 ml 500 ml @ 999 mls/hr IV .Q31M [facility] Rx#:[id number] Oral 120 Other: Voiding Method Toilet Toilet # Voids 1 1 Weight 63.503 kg Results 12/08/22 09:35 12/08/22 09:35 Cardiac Enzymes 12/08/22 12/08/22 12/08/22 Range/Units 09:35 09:35 12:34 AST 41 H (14-36) U/L Troponin I 0.028 0.028 (0.000-0.034) ng/mL 12/08/22 Range/Units 15:07 AST (14-36) U/L Troponin I 0.027 (0.000-0.034) ng/mL Coagulation 12/08/22 Range/Units 09:35 PT 23.9 H (9.0-12.0) sec APTT 44.8 H (22.0-30.0) sec CBC 12/08/22 Range/Units 09:35 WBC 8.9 (3.8-10.6) k/uL RBC 4.63 (3.80-5.40) m/uL Hgb 14.0 (11.4-16.0) gm/dL Hct 42.0 (34.0-46.0) % Plt Count 209 (150-450) k/uL Comprehensive Metabolic Panel 12/08/22 Range/Units 09:35 Sodium 137 (137-145) mmol/L Potassium 3.7 (3.5-5.1) mmol/L Chloride 104 (98-107) mmol/L Carbon Dioxide 27 (22-30) mmol/L BUN 23 H (7-17) mg/dL Creatinine 0.60 (0.52-1.04) mg/dL Glucose 151 H (74-99) mg/dL Calcium 8.9 (8.4-10.2) mg/dL AST 41 H (14-36) U/L ALT 38 H (4-34) U/L Alkaline Phosphatase 80 (38-126) U/L Total Protein 6.1 L (6.3-8.2) g/dL Albumin 3.5 (3.5-5.0) g/dL Current Medications Generic Name Dose Route Start Last Admin Trade Name Freq PRN Reason Stop Dose Admin Acetaminophen/Codeine Phosphate 1 each 12/08/22 14:17 Acetaminophen-Codeine 300-30mg Tab PO BID PRN Pain Apixaban 5 mg 12/08/22 21:00 12/09/22 08:24 Apixaban 5 Mg Tab PO 5 mg BID PHUONG Administration Protocol Atorvastatin Calcium 20 mg 12/08/22 21:00 12/08/22 19:38 Atorvastatin 20 Mg Tab PO 20 mg HS PHUONG Administration Cholecalciferol 75 mcg 12/09/22 09:00 12/09/22 08:24 Cholecalciferol 25 Mcg (1000 Iu) Tablet PO 75 mcg DAILY PHUONG Administration Cyanocobalamin 1,000 mcg 12/09/22 09:00 12/09/22 08:24 Cyanocobalamin 500 Mcg Tab PO 1,000 mcg DAILY PHUONG Administration Gabapentin 300 mg 12/08/22 21:00 12/09/22 08:24 Gabapentin 300 Mg Cap PO 300 mg BID PHUONG Administration Diltiazem HCl 125 mg/ Sodium 125 mls @ 5 mls/hr 12/08/22 10:00 12/09/22 04:54 Chloride IV 5 mg/hr .Q24H PHUONG 5 mls/hr Administration 5 MG/HR Naloxone HCl 0.2 mg 12/08/22 11:04 Naloxone 0.4 Mg/Ml 1 Ml Vial IV Q2M PRN Opioid Reversal Ondansetron HCl 4 mg 12/08/22 11:04 Ondansetron 4 Mg/2 Ml Vial IVP Q8HR PRN Nausea And Vomiting Triamterene/Hydrochlorothiazide 1 each 12/09/22 09:00 Triamterene-Hctz 37.5-25mg 1 Each Tab PO DAILY PHUONG Intake and Output 12/08/22 12/09/22 12/09/22 22:59 06:59 14:59 Intake Total 633.417 120 Balance 633.417 120 Intake: Intake, IV Titration 633.417 Amount Diltiazem 125 mg In 93.417 Sodium Chloride 0.9% 100 ml @ 5 MG/HR 5 mls/hr IV .Q24H [facility] Rx#:[id number] Sodium Chloride 0.9% 500 540 ml 500 ml @ 999 mls/hr IV .Q31M [facility] Rx#:[id number] Oral 120 Other: Voiding Method Toilet Toilet # Voids 1 1 Weight 63.503 kg 12/08/22 09:35 12/08/22 09:35
--- NOTE | 2022-12-09 13:10 | P.PN ---
Subjective Progress Note Date: 12/09/22 patient is a 82-year-old lady with past medical history significant for atrial fibrillation status post multiple ablations, hypertension, hyperlipidemia presented to the ER because of generalized feeling of not feeling well. Patient stated that her last ablation was last year in April. Patient stated that she was not feeling well for the last few days, was having feeling of palp itations. This morning she woke up with her Smart watch stating that she was in A. fib with RVR. Denied any orthopnea or PND. Denied any chest pressure. Patient was complaining of some shortness of breath. Because of these palpitation, patient came to the ER Initial lab work done in the ER showed WBC 8.9, hemoglobin 14, platelet count 209, sodium 1 and 3.7, BUN 22, creatinine 0.60, AST 41 troponin 0.028 EKG done in the ER A. fib with RVR Chest x-ray done in the ER no acute pulmonary process, mild cardiomegaly, mild vascular prominence Patient admitted to medicine service 12/09. Patient seen and examined. States palpitation is improved. REVIEW OF SYSTEMS: CONSTITUTIONAL: No fever, no malaise,. CARDIOVASCULAR: No chest pain, no palpitations, no syncope. PULMONARY: No shortness of breath, no cough, GASTROINTESTINAL: No diarrhea, no nausea, no vomiting, no abdominal pain. NEUROLOGICAL: No headaches, no weakness, PHYSICAL EXAMINATION: GENERAL: The patient is alert and oriented x3, not in any acute distress. Well developed, well nourished. HEENT: Pupils are round and equally reacting to light. EOMI. No scleral icterus. No conjunctival pallor. Normocephalic, atraumatic. No pharyngeal erythema. No thyromegaly. CARDIOVASCULAR: S1 and S2 present. No murmurs, rubs, or gallops. PULMONARY: Chest is clear to auscultation, no wheezing or crackles. ABDOMEN: Soft, nontender, nondistended, normoactive bowel sounds. No palpable organomegaly. MUSCULOSKELETAL: No joint swelling or deformity. EXTREMITIES: No cyanosis, clubbing, or pedal edema. NEUROLOGICAL: Gross neurological examination did not reveal any focal deficits. SKIN: No rashes. Assessment and plan A. fib with RVR Hyperlipidemia Hypertension Monitor vital signs Monitor CBC Monitor CMP Continue telemetry monitoring Continue Cardizem drip Continue Eliquis Follow-up on cardiology recommendations Labs and medication were reviewed.. Continue same treatment. Continue with symptomatic treatment. Resume home medication. Monitor labs and vitals. DVT and GI prophylaxis. Further recommendations as per clinical course of the patient Dictation was produced using [employer] dictation software. please excuse any grammatical, word or spelling errors. Objective - Vital Signs Vital signs: Vital Signs Temp 97.5 F L 12/09/22 08:00 Pulse 79 12/09/22 08:00 Resp 18 12/09/22 08:00 BP 142/89 12/09/22 08:00 Pulse Ox 96 12/09/22 08:00 FiO2 Intake & Output 12/08/22 12/09/22 12/09/22 18:59 06:59 18:59 Intake Total 633.417 120 Balance 633.417 120 Weight 63.503 kg Intake: Intake, IV Titration 633.417 Amount Diltiazem 125 mg In 93.417 Sodium Chloride 0.9% 100 ml @ 5 MG/HR 5 mls/hr IV .Q24H [facility] Rx#:[id number] Sodium Chloride 0.9% 500 540 ml 500 ml @ 999 mls/hr IV .Q31M [facility] Rx#:[id number] Oral 120 Other: Voiding Method Toilet Toilet # Voids 1 1 - Labs CBC & Chem 7: 12/08/22 09:35 12/08/22 09:35
[2022-12-09] MEDS: ATORVASTATIN 20 MG TAB PO SCH (19:48)
[2022-12-10] MEDS: GABAPENTIN 300 MG CAP PO SCH (08:21)
[2022-12-10] MEDS: CYANOCOBALAMIN 500 MCG TAB PO SCH (08:21)
[2022-12-10] MEDS: APIXABAN 5 MG TAB PO SCH (08:21)
[2022-12-10] MEDS: TRIAMTERENE-HCTZ 37.5-25MG 1 EACH TAB PO SCH (08:21)
[2022-12-10] MEDS: CHOLECALCIFEROL 25 MCG (1000 IU) TABLET PO SCH (08:21)
[2022-12-10 08:23] VITALS: BP 161/73; PULSE 58; RESP 18; TEMP 98
--- NOTE | 2022-12-10 10:58 | CA ---
Transthoracic Echo Report Name: Miya Colon Age: 82 Gender: F : 1940 Exam Date: 12/09/2022 13:14 Exam Location: [place] [facility] Ht (in): 64 Wt (lb): 140 Ordering Physician: Kerry Green Attending/Referring Phys: Víctor Narvaez MD ([id number]) [employer] Felisa De La Cruz [facility] Procedure CPT: Indications: LVF Cardiac Hx: Arrhythmia. Atrial Fibrillation on current study. HR 88 BPM Technical Quality: Technically difficult study Contrast 1: Total Dose (mL): Contrast 2: Total Dose (mL): MEASUREMENTS (Male / Female) Normal Values 2D ECHO LV Diastolic Diameter PLAX 4.4 cm 4.2 - 5.9 / 3.9 - 5.3 cm LV Systolic Diameter PLAX 3.2 cm IVS Diastolic Thickness 1.1 cm 0.6 - 1.0 / 0.6 - 0.9 cm LVPW Diastolic Thickness 1.0 cm 0.6 - 1.0 / 0.6 - 0.9 cm LV Relative Wall Thickness 0.5 LVOT Diameter 2.0 cm Ascending Aorta Diameter 3.4 cm M-MODE Aortic Root Diameter MM 2.8 cm LA Systolic Diameter MM 3.2 cm LA Ao Ratio MM 1.1 AV Cusp Separation MM 1.7 cm DOPPLER AV Peak Velocity 137.1 cm/s AV Peak Gradient 7.5 mmHg AV Mean Velocity 103.5 cm/s AV Mean Gradient 4.8 mmHg AV Velocity Time Integral 22.9 cm LVOT Peak Velocity 105.9 cm/s LVOT Peak Gradient 4.5 mmHg LVOT Velocity Time Integral 17.1 cm LVOT Stroke Volume 56.0 cm??? LVOT Stroke Volume Index 33.3 ml/m??? LVOT Cardiac Index 2830.0 cm???/min???m??? AV Area Cont Eq vti 2.4 cm??? AV Area Cont Eq pk 2.5 cm??? MV Peak Velocity 242.0 cm/s MV Peak Gradient 23.4 mmHg MV Mean Velocity 145.9 cm/s MV Mean Gradient 9.7 mmHg MV Velocity Time Integral 77.3 cm MV Area PHT 2.1 cm??? MR Peak Velocity 523.9 cm/s MR Peak Gradient 109.8 mmHg TR Peak Velocity 425.5 cm/s TR Peak Gradient 72.4 mmHg Right Atrial Pressure 8.0 mmHg Pulmonary Artery Systolic Pressu 80.4 mmHg Right Ventricular Systolic Press 80.4 mmHg FINDINGS Left Ventricle Mildly increased septal wall thickness. Left ventricular cavity size normal. Left ventricular ejection fraction is estimated at 50-55%. Low normal left ventricular systolic function. No obvious regional wall motion abnormalities. Right Ventricle Mild right ventricular dilatation with normal function. Severe pulmonary hypertension. RVSP estimated at 78 mHg Right Atrium Mild right atrial dilatation. Left Atrium Severe left atrial dilatation. Indexed LA volume 51 ml/m2 Mitral Valve Severe mitral annular calcification with fused lateral commissures with restricted mobility. Moderate mitral stenosis. Moderate mitral regurgitation. Aortic Valve Trileaflet aortic valve. Aortic valve sclerosis. No aortic regurgitation. No significant stenosis. Tricuspid Valve Structurally normal tricuspid valve. Moderate tricuspid regurgitation. Pulmonic Valve Structurally normal pulmonic valve. [id number] pulmonic regurgitation. Pericardium No pericardial effusion. Aorta Normal size aortic root and proximal ascending aorta. CONCLUSIONS Normal LV size and systolic function. LV EF 55%. Mild concentric LVH No obvious regional wall motion abnormality Mild right ventricular dilatation. Signs of severe pulmonary hypertension with RVSP estimated at 78 mmHg Severe left atrial dilatation Calcific mitral valve with nonrheumatic moderate mitral stenosis (degenerative), and moderate mitral regurgitation Aortic sclerosis with no stenosis Valvular atrial fibrillation with moderate mitral stenosis. Please correlate clinically. EF appears slightly better on current study when compared to 12/28/2021. No other significant changes noticed Previewed by: Dr Brady Jernigan (Electronically Signed) Final Date: 10 December 2022 10:57
--- NOTE | 2022-12-10 11:54 | P.DS ---
Providers Date of admission: 12/08/22 11:04 Expected date of discharge: 12/10/22 Attending physician: Edson Babin Consults: 12/08/22 11:04 Consult Physician Routine Consulting Provider: Víctor Narvaez Consult Reason/Comments: A-fib Do you want consulting provider notified?: Yes Primary care physician: [facility] Heart Course: Discharge diagnoses; A. fib with RVR resolved Hyperlipidemia Hypertension Hospital course; patient is a 82-year-old lady with past medical history significant for atrial fibrillation status post multiple ablations, hypertension, hyperlipidemia presented to the ER because of generalized feeling of not feeling well. Patient stated that her last ablation was last year in April. Patient stated that she was not feeling well for the last few days, was having feeling of palpitations. This morning she woke up with her Smart watch stating that she was in A. fib with RVR. Denied any orthopnea or PND. Denied any chest pressure. Patient was complaining of some shortness of breath. Because of these palpitation, patient came to the ER Initial lab work done in the ER showed WBC 8.9, hemoglobin 14, platelet count 209, sodium 1 and 3.7, BUN 22, creatinine 0.60, AST 41 troponin 0.028 EKG done in the ER A. fib with RVR Chest x-ray done in the ER no acute pulmonary process, mild cardiomegaly, mild vascular prominence Patient admitted to medicine service 12/09. Patient seen and examined. States palpitation is improved. 12/10. Patient seen and examined. Denies any chest pain, denies any palpitation. Denies any shortness of breath. States she is doing much better. Cardiology evaluated the patient, cleared the patient for discharge PHYSICAL EXAMINATION: GENERAL: The patient is alert and oriented x3, not in any acute distress. Well developed, well nourished. HEENT: Pupils are round and equally reacting to light. EOMI. No scleral icterus. No conjunctival pallor. Normocephalic, atraumatic. No pharyngeal erythema. No thyromegaly. CARDIOVASCULAR: S1 and S2 present. No murmurs, rubs, or gallops. PULMONARY: Chest is clear to auscultation, no wheezing or crackles. ABDOMEN: Soft, nontender, nondistended, normoactive bowel sounds. No palpable organomegaly. MUSCULOSKELETAL: No joint swelling or deformity. EXTREMITIES: No cyanosis, clubbing, or pedal edema. NEUROLOGICAL: Gross neurological examination did not reveal any focal deficits. SKIN: No rashes. Dictation was produced using [employer] dictation software. please excuse any grammatical, word or spelling errors. Patient Condition at Discharge: Stable Plan - Discharge Summary Discharge Rx Participant: Yes New Discharge Prescriptions: Continue Cholecalciferol (Vitamin D3) [Vitamin D3 (3000 Iu)] 75 mcg PO DAILY Atorvastatin [Lipitor] 20 mg PO HS Apixaban [Eliquis] 5 mg PO BID Cyanocobalamin (Vitamin B-12) [Vitamin B-12] 1,000 mcg PO DAILY Acetaminophen-Codeine 300-30mg [Tylenol w/codeine #3] 1 tab PO BID PRN 30 Days #60 tablet PRN Reason: Pain Gabapentin 300 mg PO BID Triamterene/Hydrochlorothiazid [Triamterene-Hctz 37.5-25 mg Tb] 1 tab PO DAILY Discharge Medication List Acetaminophen-Codeine 300-30mg [Tylenol w/codeine #3] 1 tab PO BID PRN 30 Days #60 tablet 11/15/22 [Rx] Apixaban [Eliquis] 5 mg PO BID 12/08/22 [History] Atorvastatin [Lipitor] 20 mg PO HS 12/08/22 [History] Cholecalciferol (Vitamin D3) [Vitamin D3 (3000 Iu)] 75 mcg PO DAILY 12/08/22 [History] Cyanocobalamin (Vitamin B-12) [Vitamin B-12] 1,000 mcg PO DAILY 12/08/22 [History] Gabapentin 300 mg PO BID 12/08/22 [History] Triamterene/Hydrochlorothiazid [Triamterene-Hctz 37.5-25 mg Tb] 1 tab PO DAILY 12/08/22 [History] Follow up Appointment(s)/Referral(s): Víctor Narvaez MD [STAFF PHYSICIAN] - 1 Week (Please call to make a post hospital follow up appointment-OFFICES ARE CLOSED AT THIS TIME) Edvin Staurt MD [Primary Care Provider] - 12/13/22 11:30 am (TUESDAY WITH [facility] SCHROEDER) Patient Instructions/Handouts: A-fib (Atrial Fibrillation) (DC) Discharge Disposition: HOME SELF-CARE
== END 2022-12-10 12:12 | disposition home or self-care (01) ==
LOC: EC 09:18 → 3SCARD 11:04
PROVIDERS: ADMIT Hospitalist; ATTEND Hospitalist
DX: I48.0 Paroxysmal atrial fibrillation (principal); I08.0 Rheumatic disorders of both mitral and aortic valves; I11.9 Hypertensive heart disease without heart failure; I27.20 Pulmonary hypertension, unspecified; Z79.01 Long term (current) use of anticoagulants; Z79.899 Other long term (current) drug therapy; Z91.048 Other nonmedicinal substance allergy status; I49.3 Ventricular premature depolarization; E78.5 Hyperlipidemia, unspecified; K21.9 Gastro-esophageal reflux disease without esophagitis; M06.9 Rheumatoid arthritis, unspecified; M19.90 Unspecified osteoarthritis, unspecified site; M81.0 Age-related osteoporosis without current pathological fracture; K57.90 Diverticulosis of intestine, part unspecified, without perforation or abscess without bleeding; R91.1 Solitary pulmonary nodule; R63.0 Anorexia; R53.83 Other fatigue; Z86.79 Personal history of other diseases of the circulatory system; Z86.010 Personal history of colon polyps; Z96.653 Presence of artificial knee joint, bilateral; Z98.42 Cataract extraction status, left eye; Z98.41 Cataract extraction status, right eye; Z96.1 Presence of intraocular lens; Z98.891 History of uterine scar from previous surgery; Z98.51 Tubal ligation status; Z98.890 Other specified postprocedural states; Z80.52 Family history of malignant neoplasm of bladder; Z82.3 Family history of stroke; Z82.49 Family history of ischemic heart disease and other diseases of the circulatory system; Z83.2 Family history of diseases of the blood and blood-forming organs and certain disorders involving the immune mechanism
CPT/HCPCS: 96366 ×3; 96376; 96365; 99291; 36415; 93005; 93306; 80053; 83735; 84443; 84484; 85025; 85610; 85730; 71046; G0378 ×3

== ENCOUNTER → 2023-01-06 | Outpatient (CLI) | payer MEDICARE ==
[2023-01-06 10:24] VITALS: BP 161/94; PULSE 52; RESP 16; TEMP 97.8
--- NOTE | 2023-01-06 12:26 | P.PAINPG ---
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 Pt states pain level is provoked at 8 /10 in intensity, constant, localized in the BL knees, burning, stabbing in character without shooting pain. Pain is provoked by walking/ standing for periods of 5 min or more. Pain is alleviated by PT 2 mo ago x 2 sessions which were ineffective, a physician guided home stretching regimen daily x 2 mo, massage therapy 10 yrs ago, heat, medications, repositioning and rest. Oswestry axial pain score of 36. Interventional procedures include DENIES Medications include Tyl #3 #60 REVIEW OF ORGAN SYSTEMS: CONSTITUTIONAL: No fevers or chills. No recent weight loss. NEUROLOGICAL: + numbness and tingling along the distal extremities. No seizure disorders or headaches. MUSCULOSKELETAL: + pain PSYCHIATRIC: Denies current depression or suicidal thoughts. Physical Examinations : Constitutional : Cooperative , not in acute distress . Neurologic : Cranial nerve II to XII intact. No focal neurological deficits. Psychiatric : alert & oriented x 3. Matching mood & appropriate affect. Judgment & insight intact. Musculoskeletal : Cervical Spine Motor strength in the deltoid and bicep s: Normal right side. Normal Left side Motor strength biceps and the wrist extensors: Normal right side . Normal left side Motor strength in the triceps muscle: Normal right side. Normal left side Deep tendon reflexes: Normal at the biceps. Normal at Brachioradialis. Normal at triceps Vertebral body tenderness to deep palpation over Cervical facet loading test: positive bilaterally Spurling test: positive bilaterally Neck distraction test: positive bilaterally Russ sign: positive bilaterally Lumbar spine Motor strength lower extremities ,thigh and legs 5/5 Right side , 5/5 Left side Deep tendon reflexes : Normal Knee Jerk. Normal Ankle Jerk Vertebral body tenderness over L5 Brand Test positive Lumbar facet Loading Test: positive Right / positive Left Range of motion of the lumbar spine Flexion 30 degrees, extension 10 degrees Straight Leg Raise test: Left/ Right positive at 35 degrees Martha test: positive right / positive left. Severe tenderness over the Sacroiliac joint on the Right / Left sides Gaenslen test: positive bilaterally Seated flexion test: positive bilaterally. Sacral spine : Severe tenderness over the Sacroiliac joint: right side / left side Range of motion: Flexion of the lumbar spine <60 degrees Range of motion: Extension of the lumbar spine <20 degrees Gaenslen's Test positive Jason's Test positive Martha test: positive right side / left side Thigh Thrust Test Sacral Thrust Test Imaging: MRI non contrast of the lumbar spine from 11/19/22 reviewed Assessment/ Plan : BL Knee OA Recommendation of MITZY L5-S1 #1. May need a series of injections for optimal pain relief. Risks, benefits of procedure discussed and patient verbalized u nderstanding. Protocol for discontinuation/continuation of medications surrounding procedure discussed. I have spent greater than 30 minutes on patient care today. Dr Farrell was available by phone for the evaluation of this patient. The time was used to review the medical records including relevant urine studies and Prescription history (MAPs), review of the available imaging, evaluation and examination of the patient, coordination of care with the medical staff and if applicable referring physicians, as well as creation of the medical record PQRS Narrative: Smoking Status Never smoker Hx Alcohol Use (MH) No Home Medications: Ambulatory Orders Apixaban [Eliquis] 5 mg PO BID 12/08/22 Atorvastatin [Lipitor] 20 mg PO HS 12/08/22 Cholecalciferol (Vitamin D3) [Vitamin D3 (3000 Iu)] 75 mcg PO DAILY 12/08/22 Cyanocobalamin (Vitamin B-12) [Vitamin B-12] 1,000 mcg PO DAILY 12/08/22 Gabapentin 300 mg PO BID 12/08/22 Triamterene/Hydrochlorothiazid [Triamterene-Hctz 37.5-25 mg Tb] 1 tab PO DAILY 12/08/22 Omeprazole 40 mg PO 01/06/23 Primidone 50 mg PO 01/06/23 Controlled Substance Measures - Controlled Substance Measures Is patient prescribed a controlled substance at discharge?: No
== END ==
LOC: PNWHC3 09:33
PROVIDERS: ATTEND Specialist
DX: M17.0 Bilateral primary osteoarthritis of knee (principal); Z88.8 Allergy status to other drugs, medicaments and biological substances; Z91.09 Other allergy status, other than to drugs and biological substances
CPT/HCPCS: 99211

== ENCOUNTER 2023-01-25 07:20 | Day surgery (SDC) | payer MEDICARE ==
[~2023-01-25 07:20] MED LIST changes: -ALPRAZolam 0.25 MG TAB PO PRN; -ALPRAZolam 0.5 MG TAB PO PRN; -ASPIRIN 325 MG TAB PO ONE; -ATORVASTATIN 80 MG TAB PO ONE; -HEPARIN SODIUM,PORCINE 10,000 UNIT in SODIUM CHLORIDE 0.9% 1,000 ML IRRIGATION PRN; -HEPARIN SODIUM,PORCINE 2,500 UNIT in SODIUM CHLORIDE 0.9% 250 ML IRRIGATION PRN; +LACTATED RINGERS 1,000 ML IV SCH; -NITROGLYCERIN SL TABS 0.4 MG TAB SUBLINGUAL PRN; -SODIUM CHLORIDE 0.9% 1,000 ML in EMPTY BAG 1 BAG IV SCH
[2023-01-25 07:54] VITALS: TEMP 96.9
[2023-01-25] MEDS ORDERED: TRIAMCINOLONE ACETONIDE 40 MG/ML 1 ML VIAL ONE (08:23)
[2023-01-25] MEDS ORDERED: ROPIVACAINE 5MG/ML 20ML VIAL ONE (08:23)
[2023-01-25] MEDS ORDERED: IOPAMIDOL M200 10 ML VIAL ONE (08:23)
--- NOTE | 2023-01-25 08:31 | P.PCN ---
Date of Procedure: 01/25/23 Surgeon: Meir Sparrow Pathology: none sent Condition: stable Disposition: PACU Description of Procedure: PREOPERATIVE DIAGNOSIS: 1-Lumbar radiculopathy 2- Lumber Degenerative Disc Diseases. POSTOPERATIVE DIAGNOSIS: 1-Lumbar radiculopathy. 2-Lumbar Degenerative Disc Diseases PROCEDURE 1. Lumbar epidural steroid injection under fluoroscopic guidance at the L4-5 level. 2. Lumbar epidurogram. ANESTHESIA: Local with 1% lidocaine EBL: Minimal PROCEDURE INDICATION: The patient with low back pain and radiculitis symptoms unresponsive to conservative treatment. Fluoroscopy was used to optimize visualization of the needle placement and to maximize safety. PROCEDURE DESCRIPTION / TECHNIQUE: The patient was seen and identified in the preoperative area. Risks, benefits, complications including but not limited to infections ,bleeding ,allergic reaction to the medications ,nerve damage and not complete pain relief , and alternatives were discussed with the patient. The patient agreed to proceed with the procedure and signed the consent. IV was started, and vital signs were stable. Patient was taken to the OR and time out was completed. The patient was placed in the prone position on procedure table and a pillow was placed under the abdomen to reduce lumbar lordosis. The lumbosacral area was prepped and draped in the usual sterile fashion with ChloraPrep.Patient was closely monitored during the procedure. Conscious sedation was used during the procedure to decrease patients anxiety. Vital signs were monitered during the entire procedure. Using anterior-posterior fluoroscopy, the L4-5 interlaminar space was identified and the skin over this site was marked and then infiltrated with 1% lidocaine subcutaneously. Subsequently, a 20-gauge Tuohy epidural needle was inserted and advanced toward the epidural space using the Loss of resistance to air technique and guided by AP and lateral fluoroscopy. The correct needle position in the epidural space was verified with the injection of 1 mL of the water soluble contrast dye Omnipaque 180 contrast and observing an excellent epidurogram with the epidural spread of the dye, after negative aspiration for blood and CSF and in the absence of paresthesias. Again after negative aspiration, a 5 ml mixture containing 40 mg of Kenalog and 3 ml of preservative free Normal Saline, and 1 ml of preservative free Ropivacaine 0.5% solution was injected and a washout of epidurogram was seen. Needle was withdrawn intact, skin was cleansed, and bandages were applied. patient tolerated procedure well and was transferred to PACU in stable condition.A copy of the needle placement picture was saved to the fluoroscopy machine. COMPLICATIONS: None
[2023-01-25 08:50] VITALS: BP 165/100; PULSE 87; RESP 15
--- NOTE | 2023-01-25 14:14 | FL ---
EXAMINATION TYPE: FL guided pain mgmt statistic DATE OF EXAM: 01/25/2023 FLUOROSCOPY Fluoroscopy time of 4 seconds was used during lumbar epidural steroid injection. 2 image/s document/ s the procedure. DAP=.[id number] mGycm2.
== END 2023-01-25 09:00 | disposition home or self-care (01) ==
LOC: ORPAIN 07:20
PROVIDERS: ATTEND Anesthesiology
DX: M51.16 Intervertebral disc disorders with radiculopathy, lumbar region (principal); I48.91 Unspecified atrial fibrillation; Z79.01 Long term (current) use of anticoagulants
CPT/HCPCS: 62323; J3301; Q9966; J2795

== ENCOUNTER 2023-03-10 17:30 | Emergency (ER) | payer MEDICARE ==
--- NOTE | 2023-03-10 18:31 | XR ---
PROCEDURE: XR clavicle RT - 2V DATE AND TIME: 03/10/2023 6:16 PM CLINICAL INDICATION: PHH; pain and fall TECHNIQUE: Department protocol COMPARISON: None FINDINGS: There is no fracture or malalignment. Moderate degenerative osteoarthritis changes noted at the acromioclavicular joint and the glenohumera l joint. The soft tissues are unremarkable. IMPRESSION: No acute radiographic process.
--- NOTE | 2023-03-10 18:32 | XR ---
PROCEDURE: XR shoulder complete RT - 3V DATE AND TIME: 03/10/2023 6:16 PM CLINICAL INDICATION: PHH; pain and fall TECHNIQUE: Department protocol COMPARISON: None FINDINGS: There is no fracture or malalignment. Moderate osteoarthritis changes are noted at both the acromial clavicular and the glenohumeral joints . The soft tissues are unremarkable. IMPRESSION: No acute radiographic process.
[2023-03-10 19:41] VITALS: RESP 18
--- NOTE | 2023-03-10 19:48 | CT ---
EXAMINATION TYPE: CT brain cspine wo con DATE OF EXAM: 03/10/2023 COMPARISON: None HISTORY: Fall, no LOC, on eliquis. CT DLP: 1369.5 mGycm. Automated Exposure Control for Dose Reduction was Utilized. TECHNIQUE: CT scan of the head and cervical spine are performed without contrast. FINDINGS: There is comminuted fracture of the head of the right clavicle with associated external soft tissue s welling superficial to the clavicular head and tracking upward deep to the right sternocleidomastoid. No hematoma deep to the clavicle. No pneumothorax. Laryngeal cartilage appears intact.1 There is no acute intracranial hemorrhage, mass effect, or midline shift identified. The ventricles and sulci are within normal limits in size. The globes are intact and the visualized sinuses are parish ar. Cervical spine is visualized in its entirety from C1 through upper thoracic levels and demonstrates s atisfactory alignment without evidence of acute fracture or dislocation. Prevertebral soft tissue ap pears within normal limits. The C1-C2 articulation is unremarkable. IMPRESSION: 1. Right clavicular head fracture. 2. No acute intracranial hemorrhage, mass effect, or midline shift is seen. 3. There is no acute fracture or dislocation evident in the cervical spine.
[2023-03-10] MEDS ORDERED: hydrALAZINE HCL 20 MG/ML 1 ML VIAL IVP STA (19:53)
[2023-03-10] MEDS ORDERED: MORPHINE SULFATE 2 MG/ML SYRINGE IVP STA (20:22)
--- NOTE | 2023-03-10 20:59 | ED ---
Fall HPI - General Chief Complaint: Fall Stated Complaint: Fall/on blood thinners Time Seen by Provider: 03/10/23 18:49 Source: patient Mode of arrival: wheelchair - History of Present Illness Initial Comments: 82-year-old female presenting for evaluation post fall. Patient tripped and fell onto an outstretched right arm. She is now complaining of pain to the shoulder and clavicle. No loss of consciousness or head injury. Patient is on eliquis. Patient is having some bilateral knee soreness, however she is still able to stand and ambulate. No shortness of breath, chest pain, nausea, vomiting, dizziness, vision or hearing changes, numbness, tingling, weakness. - Related Data Home Medications Medication Instructions Recorded Confirmed Apixaban [Eliquis] 5 mg PO BID 12/08/22 03/09/23 Cholecalciferol (Vitamin D3) 75 mcg PO DAILY 12/08/22 03/09/23 [Vitamin D3 (3000 Iu)] Cyanocobalamin (Vitamin B-12) 1,000 mcg PO DAILY 12/08/22 03/09/23 [Vitamin B-12] Triamterene/Hydrochlorothiazid 1 tab PO DAILY 12/08/22 03/09/23 [Triamterene-Hctz 37.5-25 mg Tb] Allergies Allergy/AdvReac Type Severity Reaction Status Date / Time contact metal agent Allergy Unknown Unknown Verified 03/10/23 17:42 adhesive tape Allergy Rash/Hives Verified 03/10/23 17:42 nickel Allergy burning, Verified 03/10/23 17:42 pain Review of Systems ROS Statement: Those systems with pertinent positive or pertinent negative responses have been documented in the HPI. ROS Other: All systems not noted in ROS Statement are negative. Past Medical History Past Medical History: Atrial Fibrillation, Hyperlipidemia, Hypertension, Osteoarthritis (OA), Rheumatoid Arthritis (RA) Additional Past Medical History / Comment(s): Paroxysmal afib, cardiac tampon thania/pericardial window, possible rheumatoid arthritis, osteoporosis, hx diverticular disease, benign colon polp. History of Any Multi-Drug Resistant Organisms: None Reported Past Surgical History: Breast Surgery, Section, EPS, Joint Replacement, Tonsillectomy, Tubal Ligation Additional Past Surgical History / Comment(s): Cardioversions, EPS with ablations, pericardial window, bilateral total knee replacements, D&Cs, R breast benign lumpectomy, colonoscopy, bilateral cataract removals/lens implants Past Anesthesia/Blood Transfusion Reactions: No Reported Reaction Additional Past Anesthesia/Blood Transfusion Reaction / Comment(s): Pt has 2U PRBCs with a heart cath. Cath punctured a hole in her heart, and she ended up needing open heart surgery. Past Psychological History: No Psychological Hx Reported Smoking Status: Never smoker Past Alcohol Use History: None Reported Past Drug Use History: None Reported - Past Family History Father Family Medical History: Cancer, CVA/TIA Additional Family Medical History / Comment(s): Father at age 80 from bladder cancer, with history of CVA. Mother Family Medical History: Myocardial Infarction ([place]) Additional Family Medical History / Comment(s): Mother at age 42 from a myocardial infarction. Brother(s) Family Medical History: Blood Disorder, CVA/TIA Additional Family Medical History / Comment(s): Patient was 4 brothers and one has history of factor V, 3 have had strokes. General Exam Limitations: no limitations General appearance: alert, in no apparent distress Head exam: Present: atraumatic, normocephalic, normal inspection Eye exam: Present: normal appearance, EOMI Neck exam: Present: normal inspection, full ROM. Absent: tenderness Respiratory exam: Present: normal lung sounds bilaterally. Absent: respiratory distress, wheezes, rales, rhonchi, stridor Cardiovascular Exam: Present: regular rate, normal rhythm, normal heart sounds. Absent: systolic murmur, diastolic murmur, rubs, gallop, clicks Right Shoulder Exam: Present: tenderness (Along clavicle), swelling. Absent: full ROM Vascular: Absent: vascular compromise Neurological exam: Present: alert, oriented X3 Psychiatric exam: Present: normal affect, normal mood Skin exam: Present: warm, dry, intact, normal color. Absent: rash Course Vital Signs 03/10/23 03/10/23 03/10/23 17:39 19:31 20:30 Temperature 98 F Pulse Rate 53 L 54 L 54 L Respiratory 16 18 Rate Blood Pressure 209/86 206/77 199/96 O2 Sat by Pulse 98 97 97 Oximetry 03/10/23 03/10/23 20:56 21:22 Temperature 98.1 F Pulse Rate 46 L 50 L Respiratory 18 Rate Blood Pressure 171/80 170/80 O2 Sat by Pulse 96 Oximetry Medical Decision Making - Medical Decision Making Was pt. sent in by a medical professional or institution ([facility]ST[facility] Arguello, DEVELOPMENT COORDINATOR, urgent care, hospital, or skilled nursing...) When possible be specific @ -No Did you speak to anyone other than the patient for history (EMS, parent, family, police, friend...)? What history was obtained from this source @ -No Did you review nursing and triage notes (agree or disagree)? Why? @ -I reviewed and agree with nursing and triage notes Were old charts reviewed (outside hosp., previous admission, EMS record, old EKG, old radiological studies, urgent care reports/EKG's, skilled nursing records)? Report findings @ -No old charts were reviewed Differential Diagnosis (chest pain, altered mental status, abdominal pain women, abdominal pain men, vaginal bleeding, weakness, fever, dyspnea, syncope, headache, dizziness, GI bleed, back pain, seizure, CVA, palpatations, mental health, musculoskeletal)? @ -Differential Musculoskeletal Muscular strain, contusion, ligament sprain, fracture, arthritis, septic arthritis, bursitis, cellulitis, muscle spasm, nerve compression, DVT, arterial occlusion, herpes zoster, electrolyte abnormality, tumor.... This is not meant to be in all inclusive list EKG interpreted by me (3pts min.). @ -As above X-rays interpreted by me (1pt min.). @ -Negative x-rays of the shoulder and clavicle. CT interpreted by me (1pt min.). @ -Right clavicular head fracture. No acute intracranial hemorrhage mass effect or midline shift is seen. There is no acute fracture or dislocation evident in the cervical spine. U/S interpreted by me (1pt. min.). @ -None done What testing was considered but not performed or refused? (CT, X-rays, U/S, labs)? Why? @ -None What meds were considered but not given or refused? Why? @ -None Did you discuss the management of the patient with other professionals (twan yu i.e. [facility] Arguello, DEVELOPMENT COORDINATOR, lab, RT, psych nurse, oncology social worker, internal medicine doctor, teacher, contracts officer, rifle case repairer)? Give summary @ -No Was smoking cessation discussed for >3mins.? @ -No Was critical care preformed (if so, how long)? @ -No Were there social determinants of health that impacted care today? How? (Homelessness, low income, unemployed, alcoholism, drug addiction, transportation, low edu. Level, literacy, decrease access to med. care, shelter, rehab)? @ -No Was there de-escalation of care discussed even if they declined (Discuss DNR or withdrawal of care, Hospice)? DNR status @ -No What co-morbidities impacted this encounter? (DM, HTN, Smoking, COPD, CAD, Cancer, CVA, ARF, Chemo, Hep., AIDS, mental health diagnosis, sleep apnea, morbid obesity)? @ -None Was patient admitted / discharged? Hospital course, mention meds given and route, prescriptions, significant lab abnormalities, going to OR and other pertinent info. @ -80-year-old female visiting for evaluation post fall. Patient is on blood thinners. No head injury. No loss of consciousness. Physical exam was conducted. There is swelling near the shoulder and clavicle on the right side. Negative x-rays of the shoulder and clavicle. CT shows clavicular head fracture, no acute intracranial process or cervical spine fracture. Patient is placed in an arm immobilizer. Patient was initially quite hypertensive but after pain medication her blood pressure has improved. She will take her evening medications at home. Discharged home. Follow-up with PCP. Report back to ER with any new or worsening symptoms. Discussed return parameters and answered all questions. Patient conveyed verbal understanding and agreed to the plan. I discussed this case in detail with my attending Dr. Martínez Undiagnosed new problem with uncertain prognosis? @ -No Drug Therapy requiring intensive monitoring for toxicity (Heparin, Nitro, Insulin, Cardizem)? @ -No Were any procedures done? @ -No Diagnosis/symptom? @ -Clavicle fracture Acute, or Chronic, or Acute on Chronic? @ -Acute Uncomplicated (without systemic symptoms) or Complicated (systemic symptoms)? @ -Uncomplicated Side effects of treatment? @ -No Exacerbation, Progression, or Severe Exacerbation? @ -No Poses a threat to life or bodily function? How? (Chest pain, [place], [place], pneumonia, PE, COPD, DKA, ARF, appy, cholecystitis, CVA, Diverticulitis, Homicidal, Suicidal, threat to staff... and all critical care pts) @ -No Disposition Clinical Impression: Clavicle fracture Disposition: HOME SELF-CARE Condition: Good Instructions (If sedation given, give patient instructions): Clavicle Fracture (ED), Head Injury (ED) Additional Instructions: Follow-up with PCP. Follow-up with orthopedics. Report back to ER with any new or worsening symptoms. Is patient prescribed a controlled substance at d/c from ED?: No Referrals: Edvin Stuart MD [Primary Care Provider] - 1-2 days Lay Powell DO [Doctor of Osteopathic Medicine] - 1-2 days Time of Disposition: 20:58
[2023-03-10 21:37] VITALS: BP 170/80; PULSE 50; TEMP 98.1
== END 2023-03-10 21:34 | disposition home or self-care (01) ==
LOC: EC 17:30
DX: S42.001A Fracture of unspecified part of right clavicle, initial encounter for closed fracture (principal); I10 Essential (primary) hypertension; I48.0 Paroxysmal atrial fibrillation; Z79.01 Long term (current) use of anticoagulants; Z88.8 Allergy status to other drugs, medicaments and biological substances; Z91.09 Other allergy status, other than to drugs and biological substances; W01.0XXA Fall on same level from slipping, tripping and stumbling without subsequent striking against object, initial encounter
CPT/HCPCS: 73000; 73030; 72125; 70450; 99284; 96374; J2270

== ENCOUNTER 2023-03-11 09:11 | Day surgery (SDC) | payer MEDICARE ==
[~2023-03-11 09:11] MED LIST changes: +LIDOCAINE 1% (10MG/ML) FOR IV START INTRADERMA PRN
== END 2023-03-11 10:11 | disposition home or self-care (01) ==
LOC: ORPAIN 09:11
PROVIDERS: ATTEND Anesthesiology
DX: Z53.8 Procedure and treatment not carried out for other reasons (principal); M47.816 Spondylosis without myelopathy or radiculopathy, lumbar region

== ENCOUNTER 2023-03-18 07:06 | Day surgery (SDC) | payer MEDICARE ==
[2023-03-18 07:40] VITALS: TEMP 97.6
[2023-03-18] MEDS: LACTATED RINGERS 1,000 ML IV SCH ×2 (07:45→07:56)
[2023-03-18] MEDS ORDERED: MIDAZOLAM 2 MG/2 ML VIAL ONE (07:57)
[2023-03-18] MEDS ORDERED: methylPREDNISolone ACETATE 40 MG/ML 1 ML VIAL ONE (08:04)
[2023-03-18] MEDS ORDERED: ROPIVACAINE 5MG/ML 20ML VIAL ONE (08:04)
--- NOTE | 2023-03-18 08:17 | P.PCN ---
Date of Procedure: 03/18/23 Procedure(s) Performed: PREOPERATIVE DIAGNOSIS : 1- Lumbar spondylosis with Facet Arthropathy without myelopathy . 2- Lumber degenerative disc disease POSTOPERATIVE DIAGNOSIS: 1- Lumbar spondylosis with Facet Arthropathy without myelopathy . 2- Lumber degenerative disc disease PROCEDURE: Diagnostic bilateral L3 , L4 , and L5 medial branch block under fluoroscopy guidance(fluoroscopy images available in the radiology Department ) ( To target the facet joint between Bilateral L4-5 , and L5-S1 )#1st ANESTHESIA:, Monitored anesthesia care as per anesthesia department.. EBL: Minimal COMPLICATION: None PROCEDURE INDICATION: Chronic low back pain secondary to Facet arthropathy unresponsive to conservative treatment. PROCEDURE DESCRIPTION: the patient was seen and identified in the preop holding area , risks and benefits and possible complications of the procedure and alternative were discussed with the patient, and the patient agreed to proceed with the procedure and signed the consent and vital signs monitored during the procedure and fluoroscopy was used to maximize the benefit and accuracy of the needle placement, and sedation was given to decrease patient anxiety, patient was taken to the procedure room and placed in prone position vital signs monitored in the back prepped with chlorhexidine X3 then under strict sterile technique using a right oblique fluoroscopy ,the junction of the transverse process and the superior articulating process of the right L3 , L4 , and L5 vertebra which corresponding to the fluoroscopy image of the eye of the Michael dog on the block side for the medial branches and subsequently , after local infiltration of skin and subcu tissuies with Ropivacaine 0.5 % , one mL at each level ,then 22-gauge Quincke-type needles , 3 needle was used , each one of them placed at the junction of the base of the transverse process and the superior articular process at the appropriate level, and the needle was advanced until the periosteum contacted, needle placement confirmed with AP oblique and lateral view and after appropriate needle placement confirmed, and after negative aspiration for heme and CSF and there was no paresthesia 1-1/2 mL of Ropivacaine 0.5% mixed with 20 mg Depo-Medrol , then half mL injected at each level after negative aspiration the needle subsequently removed and the same procedure repeated for the left side at left side at L3 , L4 and L5 levels. At the end of the procedure and the needles removed and a bandage applied after the skin was cleaned the cleaning solution patient taken to recovery room in stable condition and monitors in the recovery room for 20-30 minutes and discharged home in stable condition after discharge criteria met and patient will follow up with the pain clinic in 2-4 weeks she held Elequis for 3 days
[2023-03-18] MEDS ORDERED: IV FLUID CONTINUATION 1,000 ML IV ONE (08:19)
--- NOTE | 2023-03-18 08:32 | FL ---
Intraoperative/procedural fluoroscopic services were provided for bilateral lumbar facet block. Total fluoroscopy time is 7.1 seconds with a total of 5 submitted images to PACS. Total DAP [id number] mGym2. Please see the operative note for further details.
[2023-03-18 09:05] VITALS: RESP 16
[2023-03-18 09:27] VITALS: BP 156/91; PULSE 87
== END 2023-03-18 09:36 | disposition home or self-care (01) ==
LOC: ORPAIN 07:06
PROVIDERS: ATTEND Specialist
DX: M47.816 Spondylosis without myelopathy or radiculopathy, lumbar region (principal); M51.36 Other intervertebral disc degeneration, lumbar region; G89.29 Other chronic pain; I48.91 Unspecified atrial fibrillation; Z79.899 Other long term (current) drug therapy
CPT/HCPCS: 64493; 64494 ×2; J2250; J1030; J2795

== ENCOUNTER → 2023-04-07 | Outpatient (CLI) | payer MEDICARE ==
--- NOTE | 2023-04-07 10:31 | P.PAINPG ---
PQRS Measure Charge Sheet Comment: HISTORY OF PRESENT ILLNESS: 82 yr old female w presents today w severe and chronic LBP secondary to DDD, spondylosis and facet arthropathy without myelopathy for evaluation s/p BL MBB L4-L5, L5-S1 #1. Pt states she experienced 100 % pain relief x 10 days s/p procedure. Pt states pain level is provoked at 8 /10 in intensity, constant, localized in the lower lumbar spine, predominantly axial, burning/ stabbing in character w occasional shooting pain towards the BL knees. Pain is provoked by walking/ standing for periods of 5 min or more. Pain is alleviated by PT 2 mo ago x 2 sessions which were ineffective, a physician guided home stretching regimen daily x 2 mo, massage therapy 10 yrs ago, heat, medications, repositioning and rest. Oswestry axial pain score of 22. Interventional procedures include MITZY L5-S1 #1, BL MBB L3-L5 x1 Medications include Tyl #3 #60 REVIEW OF ORGAN SYSTEMS: CONSTITUTIONAL: No fevers or chills. No recent weight loss. NEUROLOGICAL: + numbness and tingling along the distal extremities. No seizure disorders or headaches. MUSCULOSKELETAL: + pain PSYCHIATRIC: Denies current depression or suicidal thoughts. Physical Examinations : Constitutional : Cooperative , not in acute distress . Neurologic : Cranial nerve II to XII intact. No focal neurological deficits. Psychiatric : alert & oriented x 3. Matching mood & appropriate affect. Judgment & insight intact. Musculoskeletal : Cervical Spine Motor strength in the deltoid and biceps: Normal right side. Normal Left side Motor strength biceps and the wrist extensors: Normal right side . Normal left side Motor strength in the triceps muscle: Normal right side. Normal left side Deep tendon reflexes: Normal at the biceps. Normal at Brachioradialis. Normal at triceps Vertebral body tenderness to deep palpation over Cervical facet loading test: positive bilaterally Spurling test: positive bilaterally Neck distraction test: positive bilaterally Russ sign: positive bilaterally Lumbar spine Motor strength lower extremities ,thigh and legs 5/5 Right side , 5/5 Left side Deep tendon reflexes : Normal Knee Jerk. Normal Ankle Jerk Vertebral body tenderness over L4 Brand Test positive Lumbar facet Loading Test: positive Right / positive Left Range of motion of the lumbar spine Flexion 30 degrees, extension 10 degrees Straight Leg Raise test: Left/ Right positive at 35 degrees Martha test: positive right / positive left. Severe tenderness over the Sacroiliac joint on the Right / Left sides Gaenslen test: positive bilaterally Seated flexion test: positive bilatera lly. Sacral spine : Severe tenderness over the Sacroiliac joint: right side / left side Range of motion: Flexion of the lumbar spine <60 degrees Range of motion: Extension of the lumbar spine <20 degrees Gaenslen's Test positive Jason's Test positive Martha test: positive right side / left side Thigh Thrust Test Sacral Thrust Test Imaging: MRI non contrast of the lumbar spine from 11/19/22 reviewed Assessment/ Plan : BL Knee OA, Lumbar DDD Recommendation of BL TFESI L4-L5. May need a series of injections for optimal pain relief. Risks, benefits of procedure discussed and patient verbalized understanding. Protocol for discontinuation/continuation of medications surrounding procedure discussed. I have spent greater than 30 minutes on patient care today. Dr Farrell was available by phone for the evaluation of this patient. The time was used to review the medical records including relevant urine studies and Prescription history (MAPs), review of the available imaging, evaluation and examination of the patient, coordination of care with the medical staff and if applicable referring physicians, as well as creation of the medical record PQRS Narrative: Smoking Status Never smoker Hx Alcohol Use (MH) No Home Medications: Ambulatory Orders Apixaban [Eliquis] 5 mg PO BID 12/08/22 Cholecalciferol (Vitamin D3) [Vitamin D3 (3000 Iu)] 75 mcg PO DAILY 12/08/22 Cyanocobalamin (Vitamin B-12) [Vitamin B-12] 1,000 mcg PO DAILY 12/08/22 Triamterene/Hydrochlorothiazid [Triamterene-Hctz 37.5-25 mg Tb] 1 tab PO DAILY 12/08/22 Controlled Substance Measures - Controlled Substance Measures Is patient prescribed a controlled substance at discharge?: No
[2023-04-07 10:53] VITALS: BP 169/103; PULSE 73; RESP 16; TEMP 98.3
== END ==
LOC: PNWHC3 10:07
PROVIDERS: ATTEND Specialist
DX: M51.36 Other intervertebral disc degeneration, lumbar region (principal); M17.0 Bilateral primary osteoarthritis of knee; Z91.048 Other nonmedicinal substance allergy status; Z88.8 Allergy status to other drugs, medicaments and biological substances
CPT/HCPCS: 99211

== ENCOUNTER 2023-04-26 09:41 | Day surgery (SDC) | payer MEDICARE ==
[2023-04-22 09:27] VITALS: BMI 24.0
[~2023-04-26 09:41] MED LIST changes: -LIDOCAINE 1% (10MG/ML) FOR IV START INTRADERMA PRN
[2023-04-26 10:38] VITALS: TEMP 97
[2023-04-26] MEDS ORDERED: IOPAMIDOL M200 10 ML VIAL ONE (10:44)
[2023-04-26] MEDS ORDERED: methylPREDNISolone ACETATE 40 MG/ML 1 ML VIAL ONE (10:44)
--- NOTE | 2023-04-26 11:02 | P.PCN ---
Date of Procedure: 04/26/23 Procedure(s) Performed: PREOPERATIVE DIAGNOSIS: 1-Lumbar radiculopathy . 2-lumbar degenerative disc disease. 3-lumbar spondylosis with lumbar facet arthropathy without myelopathy POSTOPERATIVE DIAGNOSIS: 1-lumbar radiculopathy. 2-lumbar degenerative disc disease. 3-lumbar spondylosis with facet arthropathy without myelopathy PROCEDURE 1. Transforaminal epidural steroid injection under fluoroscopic guidance at Bilateral L4-5 level. (Fluoroscopy images stored on file in the radiology Department ) 2. Lumbar epidurogram . ANESTHESIA: Local with 1% lidocaine 3 ml. EBL: Minimal PROCEDURE INDICATION: The patient with low back pain and radiculopathy symptoms unresponsive to conservative treatment. PROCEDURE DESCRIPTION / TECHNIQUE: The patient was seen and identified in the preoperative area. Risks, benefits, complications, and alternatives were discussed with the patient. The patient agreed to proceed with the procedure and signed the consent. IV was started, and vital signs were stable. Patient was taken to the OR and time out was completed. The patient was placed in the prone position on procedure table and a pillow was placed under the abdomen to reduce lumbar lordosis. The lumbosacral area was prepped and draped in the usual sterile fashion. Critical pause was taken. Vital signs were closely monitored during the procedure. Using oblique fluoroscopy, the chin of the `QuintenMichael dog at right L4-5 level was identified, and the skin and deeper tissues just below was localized with 1% lidocaine. Subsequently, a 22-gauge 3.5-inch spinal needle was advanced under a tunneled view fluoroscopic guidance just underneath the chin of the `Hayesy dog at the right L4-5 Under lateral fluoroscopy, the needle was then advanced to the posterior border of the interforaminal space. After negative aspiration of CSF and blood and with no paresthesias, 1 mL Isovue 200 contrast dye was injected excellent epidurogram and outlining of the nerve root Subsequently, 3 mL of block solution containing 20 mg Depo-Medrol and 2 mL of 0.9% normal saline PF was injected. Needle was removed and the same procedure was repeated at the left L4-5 level . At the end of the procedure, skin was cleansed, and bandages were applied. COMPLICATIONS:none DISPOSITION / PLANS: The patient was placed in a supine position and transferred to the recovery area in a stable condition for observation. There was no evidence of lower extremity motor or sensory deficit after the procedure. Patient was discharged from the recovery room after meeting discharge criteria. Home discharge instructions were given to the patient by the staff. The patient was reexamined prior to discharge. she held Eliquis for 3 days
[2023-04-26 11:27] VITALS: BP 165/84; PULSE 82; RESP 16
--- NOTE | 2023-04-26 16:29 | FL ---
EXAMINATION TYPE: FL guided pain mgmt statistic DATE OF EXAM: 04/26/2023 FLUOROSCOPY Fluoroscopy time of 7 seconds was used during bilateral transforaminal epidural injections of the lum bar spine. 2 image/s document/s the procedure. 0.0129 mGycm2 DAP
== END 2023-04-26 11:37 | disposition home or self-care (01) ==
LOC: ORPAIN 09:41
PROVIDERS: ATTEND Specialist
DX: M51.16 Intervertebral disc disorders with radiculopathy, lumbar region (principal); M47.26 Other spondylosis with radiculopathy, lumbar region; Z79.01 Long term (current) use of anticoagulants
CPT/HCPCS: 64483; J1030; Q9966

== ENCOUNTER 2023-05-24 10:33 | Emergency (ER) | payer MEDICARE ==
--- NOTE | 2023-05-24 10:36 | ED ---
General Adult HPI - General Source: RN notes reviewed <Anne Santiago - Last Filed: 05/24/23 10:35> <Suresh Torres - Last Filed: 05/24/23 15:31> - General Stated complaint: Fall Time Seen by Provider: 05/24/23 10:35 - History of Present Illness Initial comments: 82-year-old female presents the emergency department via EMS with a chief complaint of fall. She reports that she fell on 05/22/2023. She reports left-sided leg pain that originates from the left ankle and radiates up. She is complaining of right shoulder pain. She denies hitting her head or loss of consciousness however she is on anticoagulation. (Anne Santiago) This is an 82-year-old female who presents emergency Department via EMS with a complaint of fall 3 days ago. Patient complains mostly of right lateral rib pain and left groin pain. Patient states she's unable to ambulate. Patient has no clavicle pain. Patient states she doesn't believe she is having focal clavicle even though prior CAT scan showed broken clavicle. (Suresh Torres) - Related Data Home Medications Medication Instructions Recorded Confirmed Apixaban [Eliquis] 5 mg PO BID 12/08/22 04/22/23 Cholecalciferol (Vitamin D3) 75 mcg PO DAILY 12/08/22 04/22/23 [Vitamin D3 (3000 Iu)] Cyanocobalamin (Vitamin B-12) 1,000 mcg PO DAILY 12/08/22 04/22/23 [Vitamin B-12] Triamterene/Hydrochlorothiazid 1 tab PO DAILY 12/08/22 04/22/23 [Triamterene-Hctz 37.5-25 mg Tb] Allergies Allergy/AdvReac Type Severity Reaction Status Date / Time contact metal agent Allergy Unknown PAIN Verified 05/24/23 10:52 adhesive tape Allergy Rash/Hives Verified 05/24/23 10:52 nickel Allergy burning, Verified 05/24/23 10:52 pain Review of Systems ROS Other: All systems not noted in ROS Statement are negative. <Anne Santiago - Last Filed: 05/24/23 10:35> ROS Other: All systems not noted in ROS Statement are negative. <Suresh Torres - Last Filed: 05/24/23 15:31> ROS Statement: Those systems with pertinent positive or pertinent negative responses have been documented in the HPI. Past Medical History Past Medical History: Atrial Fibrillation, Hyperlipidemia, Hypertension, Osteoarthritis (OA), Rheumatoid Arthritis (RA) Additional Past Medical History / Comment(s): Paroxysmal afib, cardiac tamp onade/pericardial window, possible rheumatoid arthritis, osteoporosis, hx diverticular disease, benign colon polp. bruised area RT BREAST FROM FALL 6 WEEKS AGO- due to blood thinner use-NOT COMPLETELY GONE History of Any Multi-Drug Resistant Organisms: None Reported Past Surgical History: Breast Surgery, Section, EPS, Joint Replacement, Tonsillectomy, Tubal Ligation Additional Past Surgical History / Comment(s): Cardioversions, EPS with ablations, pericardial window, bilateral total knee replacements, D&Cs, R breast benign lumpectomy, colonoscopy, bilateral cataract removals/lens implants, PAIN CLINIC PROCEDURES, OPEN HEART SX R/T CATH PUNCTURED HOLE IN HEART- Past Anesthesia/Blood Transfusion Reactions: No Reported Reaction Additional Past Anesthesia/Blood Transfusion Reaction / Comment(s): Pt has 2U PRBCs with a heart cath. Cath punctured a hole in her heart, and she ended up needing open heart surgery. Smoking Status: Never smoker - Past Family History Father Family Medical History: Cancer, CVA/TIA Additional Family Medical History / Comment(s): Father at age 80 from bladder cancer, with history of CVA. Mother Family Medical History: Myocardial Infarction (OR) Additional Family Medical History / Comment(s): Mother at age 42 from a myocardial infarction. Brother(s) Family Medical History: Blood Disorder, CVA/TIA Additional Family Medical History / Comment(s): Patient was 4 brothers and one has history of factor V, 3 have had strokes. <Anne Santiago - Last Filed: 05/24/23 10:35> General Exam <Anne Santiago - Last Filed: 05/24/23 10:35> <Suresh Torres - Last Filed: 05/24/23 15:31> - General Exam Comments Initial Comments: Visual Physical Exam Vital signs reviewed General: Well-appearing, nontoxic, no acute distress. Head: Normocephalic, atraumatic Eyes: PERRLA, EOMI ENT: Airway patent Chest: Nonlabored breathing Skin: No visual rash, normal skin tone Neuro: Alert and oriented 3 Musculoskeletal: No gross abnormalities (Anne Santiago) GENERAL: Patient is well-developed and well-nourished. Patient is nontoxic and well- hydrated and is in mild distress. ENT: Neck is soft and supple. No significant lymphadenopathy is noted. Oropharynx is clear. Moist mucous membranes. Neck has full range of motion without eliciting any pain. EYES: The sclera were anicteric and conjunctiva were pink and moist. Extraocular movements were intact and pupils were equal round and reactive to light. Eyelids were unremarkable. PULMONARY: Unlabored respirations. Good breath sounds bilaterally. No audible rales rhonchi or wheezing was noted. CARDIOVASCULAR: There is a regular rate and rhythm without any murmurs gallops or rubs. ABDOMEN: Soft and nontender with normal bowel sounds. SKIN: Skin is clear with no lesions or rashes and otherwise unremarkable. NEUROLOGIC: Patient is alert and oriented x3. Cranial nerves II through XII are grossly intact. Motor and sensory are also intact. Normal speech, volume and content. Symmetrical smile. MUSCULOSKELETAL: Patient has left groin pain with any movement of the left leg. Patient has no ankle or knee pain. Patient has pain in the right lateral rib area. LYMPHATICS: No significant lymphadenopathy is noted PSYCHIATRIC: Normal psychiatric evaluation. (Suresh Torres) Course Vital Signs 05/24/23 10:50 Temperature 98 F Pulse Rate 89 Respiratory 18 Rate Blood Pressure 150/85 O2 Sat by Pulse 98 Oximetry Medical Decision Making <Anne Santiago - Last Filed: 05/24/23 10:35> <Suresh Torres - Last Filed: 05/24/23 15:31> - Medical Decision Making I performed the quick note portion of this exam, verbal signature Anne Santiago PA-C (Anne Santiago) Was pt. sent in by a medical professional or institution ([facility], NEONATAL INTENSIVE CARE NURSE, urgent care, hospital, or halfway...) When possible be specific @ -No Did you speak to anyone other than the patient for history (EMS, parent, family, police, friend...)? What history was obtained from this source @ -No Did you review nursing and triage notes (agree or disagree)? Why? @ -I reviewed and agree with nursing and triage notes Were old charts reviewed (outside hosp., previous admission, EMS record, old EKG, old radiological studies, urgent care reports/EKG's, halfway records)? Report findings @ -No old charts were reviewed Differential Diagnosis (chest pain, altered mental status, abdominal pain women, abdominal pain men, vaginal bleeding, weakness, fever, dyspnea, syncope, headache, dizziness, GI bleed, back pain, seizure, CVA, palpatations, mental health, musculoskeletal)? @ -Differential Musculoskeletal Muscular strain, contusion, ligament sprain, fracture, arthritis, septic arthritis, bursitis, cellulitis, muscle spasm, nerve compression, DVT, arterial occlusion, herpes zoster, electrolyte abnormality, tumor.... This is not meant to be in all inclusive list EKG interpreted by me (3pts min.). @ -As above X-rays interpreted by me (1pt min.). @ -Patient's chest x-ray shows a fifth rib fracture. Patient's x-ray of the hip shows no acute abnormality. CT interpreted by me (1pt min.). @ -Patient's C-spine and brain CT showed no acute abnormalities patient's CT of the hip shows no acute abnormality U/S interpreted by me (1pt. min.). @ -None done What testing was considered but not performed or refused? (CT, X-rays, U/S, labs)? Why? @ -None What meds were considered but not given or refused? Why? @ -None Did you discuss the management of the patient with other professionals (professionals i.e. , PA, NEONATAL INTENSIVE CARE NURSE, lab, RT, psych nurse, socially responsible investment adviser, manganese wheeler, teacher, executive vice president and chief operating officer, family service caseworker)? Give summary @ -No Was smoking cessation discussed for >3mins.? @ -No Was critical care preformed (if so, how long)? @ -No Were there social determinants of health that impacted care today? How? (Homelessness, low income, unemployed, alcoholism, drug addiction, transportation, low edu. Level, literacy, decrease access to med. care, [facility], rehab)? @ -No Was there de-escalation of care discussed even if they declined (Discuss DNR or withdrawal of care, Hospice)? DNR status @ -No What co-morbidities impacted this encounter? (DM, HTN, Smoking, COPD, CAD, Cancer, CVA, ARF, Chemo, Hep., AIDS, mental health diagnosis, sleep apnea, morbid obesity)? @ -None Was patient admitted / discharged? Hospital course, mention meds given and route, prescriptions, significant lab abnormalities, going to OR and other pertinent info. @ -Patient was having difficulty ambulating but I gave her the option of being admitted and trying to get into rehab she refuses stated that her could do rehab at home Undiagnosed new problem with uncertain prognosis? @ -No Drug Therapy requiring intensive monitoring for toxicity (Heparin, Nitro, Insulin, Cardizem)? @ -No Were any procedures done? @ -No Diagnosis/symptom? @ -Rib fracture Acute, or Chronic, or Acute on Chronic? @ -Acute Uncomplicated (without systemic symptoms) or Complicated (systemic symptoms)? @ -Complicated Side effects of treatment? @ -No Exacerbation, Progression, or Severe Exacerbation? @ -No Poses a threat to life or bodily function? How? (Chest pain, [place], OR, pneumonia, PE, COPD, DKA, ARF, appy, cholecystitis, CVA, Diverticulitis, Homicidal, Suicidal, threat to staff... and all critical care pts) @ -No Diagnosis/symptom? @ -Hip strain Acute, or Chronic, or Acute on Chronic? @ -Acute Uncomplicated (without systemic symptoms) or Complicated (systemic symptoms)? @ -Uncomplicated Side effects of treatment? @ -none Exacerbation, Progression, or Severe Exacerbation] @ -no Poses a threat to life or bodily function? @ -no (Suresh Torres) Disposition <Anne Santiago - Last Filed: 05/24/23 10:35> Is patient prescribed a controlled substance at d/c from ED?: No Time of Disposition: 15:31 <Suresh Torres - Last Filed: 05/24/23 15:31> Clinical Impression: Hip strain, Fall, Rib fracture Disposition: HOME SELF-CARE Instructions (If sedation given, give patient instructions): Fall Prevention for Older Adults (ED), Rib Fracture (ED) Additional Instructions: Patient's take Motrin and Tylenol when necessary for pain. Patient can take Tylenol with codeine at night for pain. Patient should take 10 deep breaths per hour. Referrals: Edvin Stuart MD [Primary Care Provider] - 1-2 days
[2023-05-24 11:01] VITALS: RESP 18
--- NOTE | 2023-05-24 11:21 | XR ---
EXAMINATION TYPE: XR shoulder complete RT DATE OF EXAM: 05/24/2023 COMPARISON: NONE HISTORY: Fall, pain TECHNIQUE: Shoulder examined in 3 projections. FINDINGS: The humeral head articulates with the glenoid. The acromio-clavicular junction is normal. No acute fractures or dislocations are evident. There is some mild humeral head spurring compatible with some mild degenerative joint change. A follow up study can be performed 7-10 days from acute trauma for continued pain. MRI can be perfor med if soft tissue evaluation would be of benefit. IMPRESSION: 1. No acute osseous shoulder abnormality.
--- NOTE | 2023-05-24 11:22 | XR ---
EXAMINATION TYPE: XR Hip Complete LT DATE OF EXAM: 05/24/2023 COMPARISON: None HISTORY: Fall, pain TECHNIQUE: 2 view left hip FINDINGS: Femoral head articulates with the acetabulum. Mild joint space narrowing may be present. No acute fractures are evident. IMPRESSION: 1. No acute osseous abnormality of the left hip. 2. Mild degenerative change.
--- NOTE | 2023-05-24 12:21 | CT ---
EXAMINATION TYPE: CT brain cspine wo con CT DLP: 1367.3 mGycm, Automated exposure control for dose reduction was used. DATE OF EXAM: 05/24/2023 11:41 AM COMPARISON: None. CLINICAL INDICATION:Female, 82 years old with history of fall on anticoagulation; fall TECHNIQUE: Brain: Multiple axial CT images of the brain were obtained without IV contrast. Cspine: Axial CT images from the skull base to the inferior aspect of T2 we obtained without intraven ous contrast. Coronal and sagittal reformatted images were also reviewed. FINDINGS: Brain: Extra-axial spaces: No abnormal extra-axial fluid collections. Ventricular system: Appear dilated in proportion to the degree of cerebral atrophy. Cerebral parenchyma: No increased attenuation to suggest acute intraparenchymal hemorrhage. The gra y-white matter interface appears maintained. Moderate generalized brain atrophy. Scattered hypoatte nuating areas are seen within the cerebral white matter, nonspecific but most often seen with chronic microvascular ischemic changes; moderate in degree. Cerebellum: No acute abnormality. Mass effect: No evidence of mass effect or midline shift. Intracranial vasculature: Atherosclerotic calcifications of the larger arteries near the skull base. Soft tissues: Normal. Visualized orbits: Orbital contents appear grossly intact. There has likely been previous lens surg farooq. Calvarium/osseous structures: Skull appears significantly demineralized without clear evidence of foc al lesion. Paranasal sinuses and mastoid air cells: Clear MRI is more sensitive for detecting acute processes such as infarct, and may be considered if clinica lly warranted. Cervical spine: Fracture: None seen. Osseous structures, spinal canal/neural foramina: Osseous structures are significantly demineralized, without clear evidence of focal lytic/blastic lesion. There is diffuse degenerative change, moderate in degree. This appears most significant at the C5-C6 and C6-C7 levels where disc marginal osteophyt es and mild facet arthrosis results in mild canal stenosis and moderate bilateral neural foraminal st enoses. Vertebral alignment: No traumatic malalignment. Preserved normal cervical lordosis. Neck soft tissues: No acute finding.. Calcifications noted involving the cervical carotid arteries mo stly in the bifurcation regions, and along aortic arch. Other: Lung apices show motion blurring and possibly some scarring. No definite consolidation or pneu mothorax. Comminuted fracture of the medial end of the right clavicle of uncertain age, Likely acute /subacute. IMPRESSION: CT head: 1. No acute intracranial CT abnormality. 2. Moderate atrophy and chronic microvascular ischemic changes. CT cervical spine: 1. No evidence of cervical spine fracture or traumatic malalignment. 2. Moderate cervical spondylosis. 3. Comminuted fracture of the medial end of the right clavicle, likely acute to subacute.
--- NOTE | 2023-05-24 13:49 | CT ---
EXAMINATION TYPE: CT hip LT wo con CT DLP: 337 mGycm, Automated exposure control for dose reduction was used. DATE OF EXAM: 05/24/2023 1:18 PM COMPARISON: . Extremity radiograph same day. CLINICAL INDICATION:Female, 82 years old with history of Trauma; PHH, left hip pain TECHNIQUE: CT of the left hip performed without contrast. Axial, coronal and sagittal reformatted john ges using soft tissue and bone window were obtained for review. 3-D reconstruction was created on a [employer] workstation. Contrast used: mL of , none. Oral contrast used: None FINDINGS: Osseous mineralization appears appropriate. No evidence of destructive lesion. Visualized left hemipe lvis appears intact without evidence of fracture or dislocation. There is mild left hip osteoarthropa thy. There is a 7 mm subcortical cyst in the anterior femoral head neck junction, probably degenerati ve/chronic. No fracture or dislocation involving the hip or proximal femur is seen. Soft tissues demonstrate several sigmoid region diverticula without evidence of diverticulitis. Moder ate vascular calcifications. Musculature about the hip joint appears somewhat atrophic, otherwise mamadou ssly unremarkable by CT. No focal fluid collection is identified. IMPRESSION: No acute fracture or dislocation of the left hip.
--- NOTE | 2023-05-24 14:20 | XR ---
EXAMINATION TYPE: XR ribs RT w pa chest xray DATE OF EXAM: 05/24/2023 COMPARISON: 12/08/2022, 02/07/2021 chest x-ray HISTORY: Right rib pain, fall TECHNIQUE: Chest is examined in frontal projection. Right ribs are examined in 2 views. FINDINGS: Small granuloma is likely present at the left lung base, stable from comparison. Heart size is mildly prominent. No pneumothorax is evident. No suspicious infiltrates. Some subtle irregularity where the fourth and fifth rib crosses on the oblique view may be present. U nderlying fracture of the fifth rib is not excluded. This area is not well visualized elsewhere. No a dditional findings suspicious for fractures evident. IMPRESSION: 1. An occult fracture of the lateral fifth rib is not excluded. Correlate with location of patient's pain. 2. No additional areas suspicious for fracture. No Pneumothorax
[2023-05-24] MEDS ORDERED: ACET/COD 300 MG/30 MG STARTER PACK 6 TAB BTL PO STA (15:31)
[2023-05-24 16:00] VITALS: BP 169/82; PULSE 71; TEMP 98.2
== END 2023-05-24 15:50 | disposition home or self-care (01) ==
LOC: EC 10:33
DX: S22.31XA Fracture of one rib, right side, initial encounter for closed fracture (principal); I48.91 Unspecified atrial fibrillation; I10 Essential (primary) hypertension; M19.90 Unspecified osteoarthritis, unspecified site; Z79.1 Long term (current) use of non-steroidal anti-inflammatories (NSAID); Z79.899 Other long term (current) drug therapy; Z91.09 Other allergy status, other than to drugs and biological substances; Z88.8 Allergy status to other drugs, medicaments and biological substances; Z79.01 Long term (current) use of anticoagulants; W18.30XA Fall on same level, unspecified, initial encounter
CPT/HCPCS: 70450; 72125; 73502; 99285

== ENCOUNTER → 2023-06-10 | Outpatient (CLI) | payer MEDICARE ==
[2023-06-10 11:37] LABS: African American GFR (CKD) >90 (>60 ml/min/1.73 sqM); Blood Urea Nitrogen 24 mg/dL (7-17); Non-African American GFR(CKD) 84 (>60 ml/min/1.73 sqM)
--- NOTE | 2023-06-10 12:19 | CT ---
EXAMINATION TYPE: CT hip LT w con DATE OF EXAM: 06/10/2023 COMPARISON: Prior CT left hip May 24, 2023 HISTORY: c/o left groin pain CT DLP: 349.3 mGycm Automated exposure control for dose reduction was used. CONTRAST: Performed with IV Contrast, patient injected with 100 mL of Isovue 300. FINDINGS: Xinh-eb-[id number] axial joint space loss in the left hip is redemonstrated with mild/moderate acetabul ar spurring. Femoral heads shape is maintained. On current study there is new acute/subacute comminut ed nondisplaced fracture through the left pubic symphysis. Finding is new from recent prior CT. Pubic symphysis remains intact. Diverticula in the visualized distal colon are redemonstrated. No suspicious enhancement or enhancing masses are noted. IMPRESSION: Since prior CT there is new acute or subacute nondisplaced comminuted fracture through th e left pubic symphysis without separation.
== END | disposition home or self-care (01) ==
LOC: RADCTMAIN 10:47
PROVIDERS: ATTEND Internal Medicine Geriatric Medicine
DX: S32.592A Other specified fracture of left pubis, initial encounter for closed fracture (principal); M25.552 Pain in left hip
CPT/HCPCS: 82565; 84520; 36415; 73701; Q9967

== ENCOUNTER → 2023-09-16 | Outpatient (CLI) | payer MEDICARE ==
--- NOTE | 2023-09-22 11:57 | BD ---
EXAMINATION TYPE: Axial Bone Density DATE OF EXAM: 09/16/2023 CLINICAL HISTORY: 82 years old Female. ICD-10 CODE: S32.82XD MULT FX OF PELV W/O DISRUPT OF PELV RIN G, Height: Weight: FRAX RISK QUESTIONS: Glucocorticoids (More than 3mos): yes, for RA, (Ex: prednisone, prednisolone, methylprednisolone, dexamethasone, and hydrocortisone). History of Fracture in Adulthood: yes 3. Menopause before 45: no, at 50 Rheumatoid Arthritis: yes recent fractures to both hips and pelvis, using a wheelie walker. RISK FACTORS HISTORY OF: height loss, arthritis, pelvic fxs, multiple, RA, hx of both hips broken, lt in Jun.15, and rt last m onth, and rib fxs recent with fall and multiple pelvic fxs, tail bone etc... Hip Fracture (Right/Left): yes, both lt in Jun 15, and rt last month, along with pelvis and tail bone History of Wrist Fracture: yes, left...adult MEDICATIONS: bp meds, cholesterol meds, vit d, calcium, Osteoporosis Medications: yes, boniva, in the past, nothing at this time EXAM MEASUREMENTS: Bone mineral densitometry was performed using the [employer] System. Bone mineral density as measured about the Lumbar spine is: ----- L1-L4(G/cm2): 0.927 T Score Values are as follows: ----- L1: -2.8 ----- L2: -2.9 ----- L3: -1.6 ----- L4: -1.5 ----- L1-L4: -2.1 Z Score Values are as follows: ----- L1: -0.9 ----- L2: -1.1 ----- L3: 0.3 ----- L4: 0.3 ----- L1-L4: -0.2 Bone mineral density has: Decreased -4.3% since study of: 09.15.2020 cannot use hips...recent fractures of both and multiple pelcic fxs. Bone mineral density about the R Wrist (g/cm2): 0.398 T Score values are as follows: -----Dist. R+U: -4.6 -----Prox. R+U: -3.7 -----Radius total: -4.8 Z Score values are as follows: -----Dist. R+U: -1.6 -----Prox. R+U: -0.8 -----Radius total: -1.8 Bone mineral density is the first time her right forearm/wrist has been scanned. FRAX%s: no hips scanned, therefore no frax % available. IMPRESSION: Osteoporosis (T Score less than -2.5). There is increased fracture risk and therapy is usually indicated based on age. Re-Screen 1-2 years. NOTE: T-SCORE=SD OF THE YOUNG ADULT MEAN.
== END | disposition home or self-care (01) ==
LOC: RADBDWWP 12:10
PROVIDERS: ATTEND Internal Medicine Geriatric Medicine
DX: M81.0 Age-related osteoporosis without current pathological fracture (principal); Z78.0 Asymptomatic menopausal state
CPT/HCPCS: 77080

== ENCOUNTER → 2023-09-21 | Outpatient (CLI) | payer MEDICARE ==
--- NOTE | 2023-09-21 18:34 | MR ---
EXAMINATION TYPE: MR lumbar spine wo/w con DATE OF EXAM: 09/21/2023 2:42 PM CLINICAL INDICATION:Female, 82 years old with history of M48.00 SPINAL STENOSIS; COMPARISON: CT 06/09/2023 TECHNIQUE: Multi planar, multi sequence imaging was performed utilizing: T1-weighted, T2-weighted, a nd turbo inversion recovery imaging of the lumbar spine. IV Contrast: cc . (None if empty) FINDINGS: Alignment: The lumbar vertebral bodies have preserved heights and alignment. Cord: The conus medullaris and the distal spinal cord appear unremarkable with regards to their signa l intensity and morphology. Bones/Discs: Mild degeneration changes throughout the spine with osteophyte formation and facet joint arthropathy. Intervertebral disc signal is maintained. There is abnormal inversion recovery signal w ithin thee S3 and S4 vertebral bodies with associated low T1 signal. This is only visualized in sagit jorge imaging. Postcontrast enhancement around this region is present. There is bony edema partially ou t of the rgggm-[id number]-glqt on the left aspect of the sacrum and right aspect of the sacrum.. T12-L1: No evidence of significant spinal canal stenosis or neural foraminal stenosis. L1-L2: No evidence of significant spinal canal stenosis or neural foraminal stenosis. L2-L3: No evidence of significant spinal canal stenosis. Facet joint arthropathy mild bilateral neura l foraminal stenosis. L3-L4: No evidence of significant spinal canal stenosis. Facet joint arthropathy mild bilateral neura l foraminal stenosis. L4-L5: No evidence of significant spinal canal stenosis. Facet joint arthropathy mild bilateral neura l foraminal stenosis. L5-S1: The disc is rounded posterior morphology without significant spinal canal stenosis. Facet join t arthropathy with mild bilateral neural foraminal stenosis. No significant spinal canal or neural foraminal stenosis in the remainder of the visualized levels. Other findings: None. IMPRESSION: 1. Abnormal osseous edema within the sacrum concerning for fracture. Post contrast enhancement aroun d this likely reactive. Bony edema is also nearly out of the mrijv-hb-ljot on the bilateral lateral a spects of the sacrum. Further evaluation the bony pelvis recommended with CT imaging to rule out hiwot tional fractures. 2. No definitive evidence of disc herniation or significant spinal canal stenosis. 3. Mild disc degeneration with associated osteoarthritic changes.
== END | disposition home or self-care (01) ==
LOC: RADMRIMAIN 13:25
PROVIDERS: ATTEND Internal Medicine Geriatric Medicine
DX: M48.061 Spinal stenosis, lumbar region without neurogenic claudication (principal); M51.36 Other intervertebral disc degeneration, lumbar region; M47.816 Spondylosis without myelopathy or radiculopathy, lumbar region; I70.90 Unspecified atherosclerosis; R60.0 Localized edema
CPT/HCPCS: 72158; A9585

== ENCOUNTER 2023-12-21 11:18 | Inpatient (IN) | payer MEDICARE ==
[2023-12-21] MEDS: METOPROLOL TARTRATE 5 MG/5 ML VIAL IVP SCH (11:45)
[2023-12-21 11:58] LABS: Basophils % (A) 0 %; Eosinophils # (A) 0.1 k/uL (0-0.7); Eosinophils % (A) 1 %; HCT 43.2 % (34.0-46.0); HGB 14.3 gm/dL (11.4-16.0); Hypochromasia Slight; Lymphocytes % (A) 11 %; MCH 31.5 pg (25.0-35.0); MCHC 33.1 g/dL (31.0-37.0); MCV 95.1 fL (80.0-100.0); Mean Platelet Volume 7.6; Monocytes # (A) 0.5 k/uL (0-1.0); Monocytes % (A) 6 %; Neutrophils # (A) 7.9 k/uL (1.3-7.7); Neutrophils % (A) 82 %; Platelet Count 210 k/uL (150-450); RBC 4.54 m/uL (3.80-5.40); RDW 14.9 % (11.5-15.5); WBC 9.6 k/uL (3.8-10.6)
[2023-12-21] MEDS: ASPIRIN 81 MG PO STA (12:06)
[2023-12-21] MEDS: SODIUM CHLORIDE 0.9% 500 ML 500 ML IV ONE (12:08)
[2023-12-21 12:13] LABS: ALT 141 U/L (4-34); AST 99 U/L (14-36); African American GFR (CKD) 73 (>60 ml/min/1.73 sqM); Albumin 4.1 g/dL (3.5-5.0); Alkaline Phosphatase 78 U/L (38-126); Anion Gap 12 mmol/L; Blood Urea Nitrogen 46 mg/dL (7-17); Calcium 9.2 mg/dL (8.4-10.2); Carbon Dioxide 23 mmol/L (22-30); Chloride 94 mmol/L (98-107); Glucose 128 mg/dL (74-99); Magnesium 2.4 mg/dL (1.6-2.3); Non-African American GFR(CKD) 63 (>60 ml/min/1.73 sqM); Potassium 3.6 mmol/L (3.5-5.1); Sodium 129 mmol/L (137-145); Total Bilirubin 2.1 mg/dL (0.2-1.3); Total Protein 6.2 g/dL (6.3-8.2)
[2023-12-21 12:17] LABS: INR 1.2 (<1.2); Partial Thromboplastin Time 23.7 sec (22.0-30.0); Prothrombin Time 12.4 sec (10.0-12.5)
[2023-12-21 12:20] LABS: NT-Pro-B-Type Natriuretic Pept 9640 pg/mL
[2023-12-21] MEDS ORDERED: VANCOMYCIN IV PER PHARMACY 1 EACH MISC MISCELLANE PRN (12:25)
[2023-12-21] MEDS: DILTIAZEM 125 MG in SODIUM CHLORIDE 0.9% 100 ML IV SCH (12:36)
[2023-12-21] MEDS: DILTIAZEM DRIP BOLUS FROM BAG 1 MG SOLN IV ONE (12:40)
--- NOTE | 2023-12-21 12:48 | XR ---
EXAMINATION TYPE: XR chest 1V portable DATE OF EXAM: 12/21/2023 HISTORY: Shortness of breath. COMPARISON: May 24, 2023 TECHNIQUE: Single view of the chest is submitted. FINDINGS: Demonstrated are scattered senescent parenchymal change. There is no evidence for focal infiltrate. The heart is stable. Hilar and mediastinal structures are within normal limits. Degenerative changes are seen of the dorsal spine. IMPRESSION: 1. Chronic changes without evidence for acute pulmonary disease.
--- NOTE | 2023-12-21 12:49 | XR ---
EXAMINATION TYPE: XR tibia fibula RT DATE OF EXAM: 12/21/2023 CLINICAL HISTORY: pain TECHNIQUE: AP and lateral images of the right tibia and fibula are obtained. COMPARISON: None. FINDINGS: There is no acute fracture/dislocation evident. Total right knee arthroplasty is in place. The overlying soft tissue appears unremarkable. IMPRESSION: There is no acute fracture or dislocation seen. ICD 10 NO FRACTURE, INITIAL EVALUATION
[2023-12-21] MEDS ORDERED: NALOXONE 0.4 MG/ML 1 ML VIAL IV PRN (13:23)
[2023-12-21] MEDS ORDERED: LIDOCAINE 4% PATCH TOPICAL PRN (13:25)
[2023-12-21] MEDS ORDERED: ALBUTEROL NEBULIZED 2.5 MG/3 ML INHALATION PRN (13:25)
--- NOTE | 2023-12-21 13:33 | ED ---
General Adult HPI - General Chief complaint: Extremity Problem,Nontraumatic Stated complaint: weakness Time Seen by Provider: 12/21/23 11:30 Source: patient, EMS, RN notes reviewed, old records reviewed Mode of arrival: EMS Limitations: no limitations - History of Present Illness Initial comments: Is a 83-year-old female with past medical history remarkable for atrial fibrillation, congestive heart failure, hypertension, hyperlipidemia. Has paroxysmal A-fib with a history of pericardial window for pericardial effusion, also with previous ablation. Patient is on blood thinners but no known rate control agents according to our system. Presents for lower extremity swelling as well as pain with a wound over the right anterior aquino. Is also noticed that she has been having some mild shortness of breath. Denies cough. Denies chest pain. Has felt some palpitations. Presents for further evaluation at this time. - Related Data Home Medications Medication Instructions Recorded Confirmed Apixaban [Eliquis] 5 mg PO BID 12/08/22 12/21/23 Albuterol Sulfate [Albuterol 2 puff INHALATION RT-Q4H PRN 12/21/23 12/21/23 Sulfate Hfa] Calcium Citrate 400mg 400 mg PO DAILY 12/21/23 12/21/23 Cholecalciferol [Vitamin D3 (25 25 mcg PO DAILY 12/21/23 12/21/23 Mcg = 1000 Iu)] Citrical Max Plus Vitamin D3 1 tab PO DAILY 12/21/23 12/21/23 Furosemide [Lasix] 20 mg PO DAILY 12/21/23 12/21/23 Ibandronate Sodium [Boniva] 150 mg PO Q30D 12/21/23 12/21/23 Lidocaine 5% Patch [Lidoderm 5% 1 patch TRANSDERM DAILY PRN 12/21/23 12/21/23 Patch] Magnesium Oxide [Mag-Ox] 400 mg PO DAILY 12/21/23 12/21/23 Multivit with Calcium,Iron,Min 1 tab PO DAILY 12/21/23 12/21/23 [Women's Multivitamin] Omeprazole 40 mg PO DAILY 12/21/23 12/21/23 Rosuvastatin [Crestor] 10 mg PO HS 12/21/23 12/21/23 SILVER sulfADIAZINE CREAM 1 applic TOPICAL MOWEFR 12/21/23 12/21/23 [Silvadene Cream] Vitamin B-12 & Vitamin B-Complex 1 tab PO DAILY 12/21/23 12/21/23 With Vitamin C Vitamin C 900mg With Vitamin D3 1 tab PO DAILY 12/21/23 12/21/23 25mcg & Zinc 11mg lisinopriL [Zestril] 5 mg PO BID 12/21/23 12/21/23 Allergies Allergy/AdvReac Type Severity Reaction Status Date / Time contact metal agent Allergy Unknown PAIN Verified 12/21/23 13:00 adhesive tape Allergy Rash/Hives Verified 12/21/23 13:00 nickel Allergy burning, Verified 12/21/23 13:00 pain Review of Systems ROS Statement: Those systems with pertinent positive or pertinent negative responses have been documented in the HPI. Review of Systems: CONST: Denies fever EYES: Denies blurry vision ENT: Denies nasal congestion C/V: Denies Chest pain RESP: Denies shortness of breath GI: Denies abdominal pain : Denies dysuria SKIN: Endorses right leg wound MSK: Endorses leg swelling NEURO: Denies headache ROS Other: All systems not noted in ROS Statement are negative. Past Medical History Past Medical History: Atrial Fibrillation, Heart Failure, Hyperlipidemia, Hypertension, Osteoarthritis (OA), Rheumatoid Arthritis (RA) Additional Past Medical History / Comment(s): Paroxysmal afib, cardiac tamponade /pericardial window, possible rheumatoid arthritis, osteoporosis, hx diverticular disease, benign colon polp. bruised area RT BREAST FROM FALL 6 WEEKS AGO- due to blood thinner use-NOT COMPLETELY GONE History of Any Multi-Drug Resistant Organisms: None Reported Past Surgical History: Breast Surgery, Section, EPS, Joint Replacement, Tonsillectomy, Tubal Ligation Additional Past Surgical History / Comment(s): Cardioversions, EPS with ablations, pericardial window, bilateral total knee replacements, D&Cs, R breast benign lumpectomy, colonoscopy, bilateral cataract removals/lens implants, PAIN CLINIC PROCEDURES, OPEN HEART SX R/T CATH PUNCTURED HOLE IN HEART- Past Anesthesia/Blood Transfusion Reactions: No Reported Reaction Additional Past Anesthesia/Blood Transfusion Reaction / Comment(s): Pt has 2U PRBCs with a heart cath. Cath punctured a hole in her heart, and she ended up needing open heart surgery. Past Psychological History: No Psychological Hx Reported Smoking Status: Never smoker Past Alcohol Use History: None Reported Past Drug Use History: None Reported - Past Family History Father Family Medical History: Cancer, CVA/TIA Additional Family Medical History / Comment(s): Father at age 80 from bladder cancer, with history of CVA. Mother Family Medical History: Myocardial Infarction (MD) Additional Family Medical History / Comment(s): Mother at age 42 from a myocardial infarction. Brother(s) Family Medical History: Blood Disorder, CVA/TIA Additional Family Medical History / Comment(s): Patient was 4 brothers and one has history of factor V, 3 have had strokes. General Exam - General Exam Comments Initial Comments: General: Appears in no acute distress. HEAD: Normal with no signs of head trauma. EYES: PERRLA, EOMI, conjunctiva normal, no discharge. ENT: Hearing grossly intact, normal oropharynx. RESPIRATORY: Clear breath sounds bilaterally. No wheezes, rales, or rhonchi. C/V: Irregular rate and rhythm. S1 and S2 auscultated, significant symmetrical bilateral lower extremity pitting edema, peripheral pulses 2+ and intact throughout ABD: Abd is soft, nontender, nondistended EXT: Normal range of motion, no obvious deformity SKIN: Patient has an open wound with purulent discharge on the right anterior aquino. Mild surrounding erythema. No obvious fluctuance present. Nonpurulent left lower extremity anterior aquino wound as well. NEURO: Alert and oriented x 4. Limitations: no limitations Course Vital Signs 12/21/23 12/21/23 12/21/23 11:20 11:35 11:45 Temperature 97.7 F Pulse Rate 151 H 172 H 181 H Respiratory 18 20 20 Rate Blood Pressure 83/58 99/71 O2 Sat by Pulse 96 95 94 L Oximetry 12/21/23 12/21/23 12/21/23 11:50 11:55 11:59 Temperature Pulse Rate 149 H 128 H 128 H Respiratory 20 18 20 Rate Blood Pressure 109/83 97/84 102/83 O2 Sat by Pulse 94 L 96 94 L Oximetry 12/21/23 12/21/23 12/21/23 12:00 12:05 12:10 Temperature Pulse Rate 137 H 149 H 151 H Respiratory 22 20 22 Rate Blood Pressure 102/83 83/60 106/92 O2 Sat by Pulse 97 99 99 Oximetry 12/21/23 12/21/23 12/21/23 12:20 12:30 12:40 Temperature Pulse Rate 154 H 120 H 154 H Respiratory 20 20 22 Rate Blood Pressure 109/98 91/69 90/68 O2 Sat by Pulse 98 96 98 Oximetry 12/21/23 12/21/23 12:50 12:55 Temperature Pulse Rate 144 H 126 H Respiratory 25 H 18 Rate Blood Pressure 93/76 110/80 O2 Sat by Pulse 96 98 Oximetry Medical Decision Making - Medical Decision Making Was pt. sent in by a medical professional or institution (, PA, CHIEF SUSTAINABILITY OFFICER, urgent care, hospital, or residential...) When possible be specific @ -No Did you speak to anyone other than the patient for history (EMS, parent, family, police, friend...)? What history was obtained from this source @ -No Did you review nursing and triage notes (agree or disagree)? Why? @ -I reviewed and agree with nursing and triage notes Were old charts reviewed (outside hosp., previous admission, EMS record, old EKG, old radiological studies, urgent care reports/EKG's, residential records)? Report findings @ -Old charts reviewed including prior EKGs as well as medication list. No obvious rate control agent that patient is on. Patient is on blood thinners, Eliquis. Differential Diagnosis (chest pain, altered mental status, abdominal pain women, abdominal pain men, vaginal bleeding, weakness, fever, dyspnea, syncope, headache, dizziness, GI bleed, back pain, seizure, CVA, palpatations, mental health, musculoskeletal)? @ -Atrial fibrillation with RVR, cellulitis, electrolyte abnormality, CHF. is not all inclusive. EKG interpreted by me (3pts min.). @ -As above X-rays interpreted by me (1pt min.). @ -Chest x-ray does not show any obvious acute cardiopulmonary process or pulmonary vascular congestion CT interpreted by me (1pt min.). @ -None done U/S interpreted by me (1pt. min.). @ -None done What testing was considered but not performed or refused? (CT, X-rays, U/S, labs)? Why? @ -None What meds were considered but not given or refused? Why? @ -None Did you discuss the management of the patient with other professionals (professionals i.e. , PA, CHIEF SUSTAINABILITY OFFICER, lab, RT, psych nurse, psychotherapist social worker, quality manager, teacher, youth probation officer, case picker)? Give summary @ -Discussed with Dr. Stuart the patient's PCP who accepted the admission was in agreement the plan. He did request ultrasound of the abdomen been placed to evaluate the liver which was done. He also requested consult to wound care. Both were ordered. Was smoking cessation discussed for >3mins.? @ -No Was critical care preformed (if so, how long)? @ -Yes, 41 minutes Were there social determinants of health that impacted care today? How? (Homelessness, low income, unemployed, alcoholism, drug addiction, transportation, low edu. Level, literacy, decrease access to med. care, snf, rehab)? @ -No Was there de-escalation of care discussed even if they declined (Discuss DNR or withdrawal of care, Hospice)? DNR status @ -No What co-morbidities impacted this encounter? (DM, HTN, Smoking, COPD, CAD, Cancer, CVA, ARF, Chemo, Hep., AIDS, mental health diagnosis, sleep apnea, morbid obesity)? @ -History of paroxysmal atrial fibrillation, CHF Was patient admitted / discharged? Hospital course, mention meds given and route, prescriptions, significant lab abnormalities, going to OR and other pertinent info. @ -Presents with concern for right lower extremity wound but patient also found to be in A-fib with RVR. Has a history of paroxysmal atrial fibrillation. Is on no obvious rate control agent. They believe she is not usually in atrial fibrillation. Had an ablation over a year ago. Patient is mildly hypotensive with systolic blood pressures in the 90s. Heart rate ranging typically from 1 50-190. We will initially attempt rate control with IV metoprolol pushes which patient was in agreement with. She will be given a small IV fluid bolus as well. Patient be given a dose of oral aspirin. Patient is already on Eliquis which will be continued on this admission. We will obtain general workup. Wound cultures will be obtained of the right lower extremity. Patient in agreement this plan. EKG shows A-fib with RVR. Repeat EKG shows improved A-fib with RVR. Laboratory studies remarkable for elevated BNP of 9600. Slightly elevated AST and ALT. Slightly hyponatremic at 129. Chest x-ray and tib-fib x-ray unremarkable. Following metoprolol pushes, patient remains in A-fib with RVR. Attempted Cardizem at this time which patient did respond to well. Patient will be continued on Cardizem drip at this time. Will continue with her home Ye at this time. She will be admitted for infectious disease as well as cardiology evaluation. They were in agreement this plan. I spoke with the admitting physician, Dr. Stuart who accepted the admission. Requested I order ultrasound of the abdomen to evaluate the liver as well as wound care consult. Both orders were placed. Undiagnosed new problem with uncertain prognosis? @ -No Drug Therapy requiring intensive monitoring for toxicity (Heparin, Nitro, Insulin, Cardizem)? @ - cardizem Were any procedures done? @ -No Diagnosis/symptom? @ -A-fib with RVR. Right aquino cellulitis/infected wound Acute, or Chronic, or Acute on Chronic? @ -Acute Uncomplicated (without systemic symptoms) or Complicated (systemic symptoms)? @ -Complicated Side effects of treatment? @ -No Exacerbation, Progression, or Severe Exacerbation? @ -No Poses a threat to life or bodily function? How? (Chest pain, USA, MD, pneumonia, PE, COPD, DKA, ARF, appy, cholecystitis, CVA, Diverticulitis, Homicidal, Suicidal, threat to staff... and all critical care pts) @ -Yes - Lab Data Result diagrams: 12/21/23 11:44 12/21/23 11:44 Lab Results 12/21/23 12/21/23 12/21/23 Range/Units 11:44 11:44 11:44 WBC 9.6 (3.8-10.6) k/uL RBC 4.54 (3.80-5.40) m/uL Hgb 14.3 (11.4-16.0) gm/dL Hct 43.2 (34.0-46.0) % MCV 95.1 (80.0-100.0) fL MCH 31.5 (25.0-35.0) pg MCHC 33.1 (31.0-37.0) g/dL RDW 14.9 (11.5-15.5) % Plt Count 210 (150-450) k/uL MPV 7.6 Neutrophils % 82 % Lymphocytes % 11 % Monocytes % 6 % Eosinophils % 1 % Basophils % 0 % Neutrophils # 7.9 H (1.3-7.7) k/uL Lymphocytes # 1.0 (1.0-4.8) k/uL Monocytes # 0.5 (0-1.0) k/uL Eosinophils # 0.1 (0-0.7) k/uL Basophils # 0.0 (0-0.2) k/uL Hypochromasia Slight PT 12.4 (10.0-12.5) sec INR 1.2 H (<1.2) APTT 23.7 (22.0-30.0) sec Sodium 129 L (137-145) mmol/L Potassium 3.6 (3.5-5.1) mmol/L Chloride 94 L (98-107) mmol/L Carbon Dioxide 23 (22-30) mmol/L Anion Gap 12 mmol/L BUN 46 H (7-17) mg/dL Creatinine 0.86 (0.52-1.04) mg/dL Est GFR (CKD-EPI)AfAm 73 (>60 ml/min/1.73 sqM) Est GFR (CKD-EPI)NonAf 63 (>60 ml/min/1.73 sqM) Glucose 128 H (74-99) mg/dL Plasma Lactic Acid Devyn (0.7-2.0) mmol/L Calcium 9.2 (8.4-10.2) mg/dL Magnesium 2.4 H (1.6-2.3) mg/dL Total Bilirubin 2.1 H (0.2-1.3) mg/dL AST 99 H (14-36) U/L ALT 141 H (4-34) U/L Alkaline Phosphatase 78 (38-126) U/L Troponin I (0.000-0.034) ng/mL NT-Pro-B Natriuret Pep 9640 pg/mL Total Protein 6.2 L (6.3-8.2) g/dL Albumin 4.1 (3.5-5.0) g/dL 12/21/23 12/21/23 Range/Units 11:44 11:44 WBC (3.8-10.6) k/uL RBC (3.80-5.40) m/uL Hgb (11.4-16.0) gm/dL Hct (34.0-46.0) % MCV (80.0-100.0) fL MCH (25.0-35.0) pg MCHC (31.0-37.0) g/dL RDW (11.5-15.5) % Plt Count (150-450) k/uL MPV Neutrophils % % Lymphocytes % % Monocytes % % Eosinophils % % Basophils % % Neutrophils # (1.3-7.7) k/uL Lymphocytes # (1.0-4.8) k/uL Monocytes # (0-1.0) k/uL Eosinophils # (0-0.7) k/uL Basophils # (0-0.2) k/uL Hypochromasia PT (10.0-12.5) sec INR (<1.2) APTT (22.0-30.0) sec Sodium (137-145) mmol/L Potassium (3.5-5.1) mmol/L Chloride (98-107) mmol/L Carbon Dioxide (22-30) mmol/L Anion Gap mmol/L BUN (7-17) mg/dL Creatinine (0.52-1.04) mg/dL Est GFR (CKD-EPI)AfAm (>60 ml/min/1.73 sqM) Est GFR (CKD-EPI)NonAf (>60 ml/min/1.73 sqM) Glucose (74-99) mg/dL Plasma Lactic Acid Devyn 1.8 (0.7-2.0) mmol/L Calcium (8.4-10.2) mg/dL Magnesium (1.6-2.3) mg/dL Total Bilirubin (0.2-1.3) mg/dL AST (14-36) U/L ALT (4-34) U/L Alkaline Phosphatase (38-126) U/L Troponin I 0.030 (0.000-0.034) ng/mL NT-Pro-B Natriuret Pep pg/mL Total Protein (6.3-8.2) g/dL Albumin (3.5-5.0) g/dL - EKG Data -: EKG Interpreted by Me EKG Comments: 12-lead Electrocardiogram Interpretation Note EKG was reviewed and interpreted by myself. 12-lead ECG performed at 1133 is int erpreted by me as revealing A-fib with RVR at a rate of 170 beats per minute. [place] is normal. QRS duration is 90 ms, QTc is 339 ms.. There were no ST or T wave abnormalities to suggest myocardial ischemia or injury. R wave progression across the precordium was satisfactory. 12-lead Electrocardiogram Interpretation Note EKG was reviewed and interpreted by myself. 12-lead ECG performed at 1303 is interpreted by me as revealing A-fib with RVR at a rate of 126 beats per minute. [place] is normal. QRS durations 100 ms, QTc is 399 ms.. There were no ST or T wave abnormalities to suggest myocardial ischemia or injury. R wave progression across the precordium was satisfactory. By my interpretation this EKG is non- diagnostic for acute ischemia. Critical Care Time Critical Care Time: Yes Total Critical Care Time: 41 Disposition Clinical Impression: Atrial fibrillation with RVR, Leg wound, right, Cellulitis Disposition: ADMITTED IP TO THIS HOSP Condition: Serious Referrals: Edvin Stuart MD [Primary Care Provider] - 1-2 days Time of Disposition: 13:25
[2023-12-21] MEDS: FUROSEMIDE 10 MG/ML 2 ML VIAL IV ONE (14:51)
[2023-12-21] MEDS: VANCOMYCIN 1,250 MG in SODIUM CHLORIDE 0.9% 250 ML IVPB ONE (15:01)
--- NOTE | 2023-12-21 15:56 | US ---
EXAMINATION TYPE: US abdomen limited DATE OF EXAM: 12/21/2023 COMPARISON: 02/09/2022 CLINICAL INDICATION: Female, 83 years old with history of livers; pain TECHNIQUE: Multiple sonographic images of the right upper quadrant are obtained. FINDINGS: EXAM MEASUREMENTS: Liver Length: 15.1 cm Gallbladder Wall: 0.2 cm CBD: 0.3 cm Right Kidney: 8.7 x 5.1 x 4.7 cm Pancreas: Portions of the pancreatic head and tail are obscured by bowel gas shadowing. Main pancrea tic duct with caliber of 2 mm, upper limits of normal. Liver: Cystic area central liver measuring 1.7 x 1.9 x 1.3 cm. Overall homogeneous appearance to the liver parenchyma. Gallbladder: No abnormal gallbladder distention, wall, pericholecystic fluid, or shadowing calculi. Evidence for sonographic Wang's sign: NO CBD: wnl Right Kidney: Bowel gas shadowing limiting detailed assessment of upper pole. No hydronephrosis. IMPRESSION: No gallstones or biliary ductal dilatation. An incidental benign 1.9 cm cyst of the central liver.
[2023-12-21] MEDS: lisinopriL 5 MG TAB PO SCH (20:19)
[2023-12-21] MEDS: APIXABAN 5 MG TAB PO SCH (20:19)
[2023-12-21] MEDS: ATORVASTATIN 20 MG TAB PO SCH (20:19)
--- NOTE | 2023-12-21 22:04 | P.CONS ---
History of Present Illness - Reason for Consult Consult date: 12/21/23 Right lower extremity wound infection Requesting physician: Alvaro Martínez - Chief Complaint Increasing swelling to both lower extremity and nonhealing wound to the leg - History of Present Illness Patient is a 83-year-old female with a past medical history si gnificant for atrial fibrillation heart failure hypertension hyperlipidemia osteoarthritis rheumatoid arthritis patient apparently has been dealing with the wound to the right lower extremity that apparently has been there for couple of weeks sustained out of the patient did he did with a nonstick and has been taking care at home by the visiting nurses patient has been brought to the hospital concerning for increasing swelling to bilateral lower extremity and also complaining of pain and nonhealing wound to the right anterior leg patient describes the pain to be mostly dull aching to sharp mild to moderate intense without radiation main symptom has been increasing swelling to bilateral lower extremity also complaining of some shortness of breath but no chest pain or cough no nausea vomiting no abdominal pain or any diarrhea patient on presentation to the hospital was afebrile patient was mildly tachycardic but not hypotensive or hypoxic patient did have white count of 9.6 with a left shift creatinine 0.86 liver isms pending elevated patient did have a chest x-ray chronic change without evidence for acute pulmonary process patient did have x- ray of the tibia-fibula no acute fracture or dislocation seen abdominal ultrasound no gallstones or bile duct dilatation patient has been started on vancomycin concern for right lower extremity wound and cellulitis infectious he was consulted for right lower extremity wound infection culture has been requested but not obtained so far Review of Systems Positive point and negatives has been mentioned in the HPI, complete review of systems was performed and all other systems are negative Past Medical History Past Medical History: Atrial Fibrillation, Heart Failure, Hyperlipidemia, Hypertension, Osteoarthritis (OA), Rheumatoid Arthritis (RA) Additional Past Medical History / Comment(s): Paroxysmal afib, cardiac tamponade/pericardial window, possible rheumatoid arthritis, osteoporosis, hx diverticular disease, benign colon polp. bruised area RT BREAST FROM FALL 6 WEEKS AGO- due to blood thinner use-NOT COMPLETELY GONE History of Any Multi-Drug Resistant Organisms: None Reported Past Surgical History: Breast Surgery, Section, EPS, Joint Replacement, Tonsillectomy, Tubal Ligation Additional Past Surgical History / Comment(s): Cardioversions, EPS with ablations, pericardial window, bilateral total knee replacements, D&Cs, R breast benign lumpectomy, colonoscopy, bilateral cataract removals/lens implants, PAIN CLINIC PROCEDURES, OPEN HEART SX R/T CATH PUNCTURED HOLE IN HEART- Past Anesthesia/Blood Transfusion Reactions: No Reported Reaction Additional Past Anesthesia/Blood Transfusion Reaction / Comm: Pt has 2U PRBCs with a heart cath. Cath punctured a hole in her heart, and she ended up needing open heart surgery. Past Psychological History: No Psychological Hx Reported Smoking Status: Never smoker Past Alcohol Use History: None Reported Past Drug Use History: None Reported - Past Family History Father Family Medical History: Cancer, CVA/TIA Additional Family Medical History / Comment(s): Father at age 80 from bladder cancer, with history of CVA. Mother Family Medical History: Myocardial Infarction ([place]) Additional Family Medical History / Comment(s): Mother at age 42 from a myocardial infarction. Brother(s) Family Medical History: Blood Disorder, CVA/TIA Additional Family Medical History / Comment(s): Patient was 4 brothers and one has history of factor V, 3 have had strokes. Medications and Allergies Home Medications Medication Instructions Recorded Confirmed Type Apixaban [Eliquis] 5 mg PO BID 12/08/22 12/21/23 History Albuterol Sulfate [Albuterol 2 puff INHALATION RT-Q4H PRN 12/21/23 12/21/23 History Sulfate Hfa] Calcium Citrate 400mg 400 mg PO DAILY 12/21/23 12/21/23 History Cholecalciferol [Vitamin D3 (25 25 mcg PO DAILY 12/21/23 12/21/23 History Mcg = 1000 Iu)] Citrical Max Plus Vitamin D3 1 tab PO DAILY 12/21/23 12/21/23 History Furosemide [Lasix] 20 mg PO DAILY 12/21/23 12/21/23 History Ibandronate Sodium [Boniva] 150 mg PO Q30D 12/21/23 12/21/23 History Lidocaine 5% Patch [Lidoderm 5% 1 patch TRANSDERM DAILY PRN 12/21/23 12/21/23 History Patch] Magnesium Oxide [Mag-Ox] 400 mg PO DAILY 12/21/23 12/21/23 History Multivit with Calcium,Iron,Min 1 tab PO DAILY 12/21/23 12/21/23 History [Women's Multivitamin] Omeprazole 40 mg PO DAILY 12/21/23 12/21/23 History Rosuvastatin [Crestor] 10 mg PO HS 12/21/23 12/21/23 History SILVER sulfADIAZINE CREAM 1 applic TOPICAL MOWEFR 12/21/23 12/21/23 History [Silvadene Cream] Vitamin B-12 & Vitamin B-Complex 1 tab PO DAILY 12/21/23 12/21/23 History With Vitamin C Vitamin C 900mg With Vitamin D3 1 tab PO DAILY 12/21/23 12/21/23 History 25mcg & Zinc 11mg lisinopriL [Zestril] 5 mg PO BID 12/21/23 12/21/23 History Allergies Allergy/AdvReac Type Severity Reaction Status Date / Time contact metal agent Allergy Unknown PAIN Verified 12/21/23 13:00 adhesive tape Allergy Rash/Hives Verified 12/21/23 13:00 nickel Allergy burning, Verified 12/21/23 13:00 pain Physical Exam Vitals: Vital Signs Temp Pulse Resp BP Pulse Ox 12/21/23 17:00 112 H 20 109/93 97 12/21/23 16:30 112 H 20 93/67 98 12/21/23 16:00 121 H 18 103/88 98 12/21/23 15:30 96 20 117/80 98 12/21/23 14:45 106 H 20 128/92 99 12/21/23 14:15 101 H 21 120/94 98 12/21/23 14:00 135 H 22 107/79 97 12/21/23 13:30 116 H 24 115/84 98 12/21/23 13:00 126 H 22 114/76 98 12/21/23 12:55 126 H 18 110/80 98 12/21/23 12:50 144 H 25 H 93/76 96 12/21/23 12:40 154 H 22 90/68 98 12/21/23 12:30 120 H 20 91/69 96 12/21/23 12:20 154 H 20 109/98 98 12/21/23 12:10 151 H 22 106/92 99 12/21/23 12:05 149 H 20 83/60 99 12/21/23 12:00 137 H 22 102/83 97 12/21/23 11:59 128 H 20 102/83 94 L 12/21/23 11:55 128 H 18 97/84 96 12/21/23 11:50 149 H 20 109/83 94 L 12/21/23 11:45 181 H 20 94 L 12/21/23 11:35 172 H 20 99/71 95 12/21/23 11:20 97.7 F 151 H 18 83/58 96 Intake and Output 12/21/23 12/21/23 12/21/23 06:59 14:59 22:59 Other: Weight 63.503 kg GENERAL DESCRIPTION: Elderly female lying in bed, no distress. No tachypnea or accessory muscle of respiration use. HEENT: Shows Pallor , no scleral icterus. Oral mucous membrane is dry. No pharyngeal erythema or thrush NECK: Trachea central, no thyromegaly. LUNGS: Unlabored breathing. Decreased breath sound the base no wheeze or crackle. HEART: S1, S2, regular rate and rhythm. No loud murmur ABDOMEN: Soft, no tenderness , guarding or rigidity, no organomegaly EXTREMITIES: Diffuse and bilateral lower extremity in this patient who did have a wound to the anterior aquino on the right side wound base with minimal slough tissue no foul-smelling drainage SKIN: No rash, no masses palpable. NEUROLOGICAL: The patient is awake, alert, oriented x3, mood and affect normal. Results CBC & Chem 7: 12/21/23 11:44 12/21/23 11:44 Labs: Abnormal Lab Results - Last 24 Hours (Table) 12/21/23 12/21/23 12/21/23 Range/Units 11:44 11:44 11:44 Neutrophils # 7.9 H (1.3-7.7) k/uL INR 1.2 H (<1.2) Sodium 129 L (137-145) mmol/L Chloride 94 L (98-107) mmol/L BUN 46 H (7-17) mg/dL Glucose 128 H (74-99) mg/dL Magnesium 2.4 H (1.6-2.3) mg/dL Total Bilirubin 2.1 H (0.2-1.3) mg/dL AST 99 H (14-36) U/L ALT 141 H (4-34) U/L Total Protein 6.2 L (6.3-8.2) g/dL Assessment and Plan (1) Cellulitis Current Visit: Yes Status: Acute Code(s): L03.90 - CELLULITIS, UNSPECIFIED SNOMED Code(s): 391102798 (2) Leg wound, right Current Visit: Yes Status: Acute Code(s): S81.801A - UNSPECIFIED OPEN WOUND, RIGHT LOWER LEG, INITIAL ENCOUNTER SNOMED Code(s): 05947290020955481 Plan: 1patient presented to hospital with increasing swelling to bilateral lower extremity in this patient who did have a wound to the right anterior leg for couple of weeks no concern for wound infection and secondary cellulitis likely from gram-positive skin cristy 2-local wound culture has been ordered and results will be followed 3-check Doppler ultrasound bilateral lower extremity if negative to apply Jean Paul wrap to get some the swelling down 4-vancomycin pharmacy to dose target trough of 15 while watching kidney function and Vanco trough closely 5local wound care to continue with the Aquacel silver dressing change every 48 hours We will follow on clinical condition and cultures to further adjust medication if needed Thank you for this consultation we will follow the patient along with you Dictation was produced using [employer] dictation software. please excuse any grammatical, word or spelling errors. Time with Patient: Greater than 30
[2023-12-21] MEDS: FUROSEMIDE 10 MG/ML 2 ML VIAL IV SCH (22:07)
--- NOTE | 2023-12-21 22:20 | P.HPIM ---
History of Present Illness H&P Date: 12/21/23 HISTORY OF PRESENT ILLNESS: 83-year-old with active medical history of atherosclerotic heart disease, A-fib, congestive heart failure, hypertension, hyperlipidemia, chronic anasarca and edema, history of chronic arthritis, previous history of tamponade required pe ricardial window, osteoporosis, recurrent diverticulitis, who had to pelvic fracture the last year from 2 different fall, she fell 4 weeks ago and traumatized her right leg and chin area which has an open sore sized 2X.5 an inch with local dressing via visiting nurse since. He developed anasarca and side require more diuretics which already created significant problem with acute kidney injury had to back off to some degree when patient had to continue on furosemide 40 mg twice a day along with spironolactone to keep the swelling down. She become debilitated last few weeks not been able to ambulate and walk require at least 1 person therapist's assistant on a regular basis to move her out of bed to the bathroom and back. She has much worsening symptoms with severe generalized weakness fatigue low-grade temperature and not been able to pull herself out of bed. With worsening symptoms today along with more open sore and draining both legs worsening of the left side on the right side ended up coming to the emergency department via EMS where was seen and evaluated surprisingly at the time of her arrival found to have pulse of 100-1 30 with A-fib with RVR blood pressure was soft on the low side running 90-1 10. Patient extremely weak not able to pull herself her laboratory value showed hyponatremia with prerenal acute kidney injury with bun of 46 creatinine 0.86 with GFR 63, slightly abnorm al liver function test with probably worsening congestion from her heart function and anasarca. Troponin was negative with proBNP was 9640. Back and leg has still an open sore on the right side with the left side had small ulceration of the skin had a creatinine significant to drainage with much w orsening local cellulitis. She was started on Cardizem drip to cover her A-fib with RVR and eventually had to titrate dose up to 7.5 and 10 mg to give her pulse below 100 started on Vancomycin and consult infectious disease will admit patient to the hospital for inpatient treatment management will require further wound care as well. REVIEW OF SYSTEMS: CONSTITUTIONAL: Well-developed no acute respiratory distress. EYES: No icterus sclerae, no conjunctivitis. EARS, NOSE, MOUTH, THROAT, and FACE: No sore throat, lymphadenopathy, carotid bruits or deformity. RESPIRATORY: Slight shortness of breath no cough or wheezes. CARDIOVASCULAR: Positive PND orthopnea palpitation with rapid pulse. GASTROINTESTINAL: Lack of appetite with nausea no vomiting no diarrhea or constipation. GENITOURINARY: Polyuria and nocturia and mild incontinence. INTEGUMENT/BREAST: Negative for any muscular injury with mild osteoarthritis.. HEMATOLOGIC/LYMPHATIC: Negative for bleed or purpura. MUSCULOSKELTAL: Generalized fatigue and generalized muscle and joint discomfort. Both lower extremity had sore worse on the right than the left side with anasarca swelling and drainage from the left side. NEURLOGICAL: No LOC, Sz or syncope, blurred vision dizziness or abnormality.. BEHAVIORAL/PSYCH: Negative. ENDOCRINE: Negative. PHYSICAL EXAMINATION: General Appearance: Alert, cooperative, no distress, appears stated age. Neck HEENT: Supple, no lymphadenopathy, no thyroid enlargement, no carotid bruits. Lungs: Decreased breath sound bilaterally with fine rhonchi positive mild expiratory wheezes. Chest Wall: Decreased expansion with deep inspiration no tenderness and no deformity was found on exam, no costochondral pain or discomfort. Heart: Irregular rate and rhythm, S1, S2 positive S3 positive systolic murmur. Back: Significant lower back pain and discomfort mild curvature and scoliosis. Abdomen: Soft, non-tender, bowel sounds active all four quadrants, no masses, no organomegaly. Extremities: 2+ edema with anasarca bilaterally there is an open sore on the right leg on the medial aspect with size 2 x 0.5 inch with blue-colored dressing on and still have slightly drainage. Left leg in the lateral side had an open area with laceration of the skin did not require any stitches but the draining serous fluid. Significant puffiness and edema in the feet bilaterally worse on the right and left side with positive pulse. Pulses: 2+ and symmetric. Skin: Skin color, texture, tugor normal, no rashes or lesions. Neurologic: Alert oriented x3 cranial nerves II through XII intact, severe generalized weakness with abnormal balance and gait. ASSESSMENT AND PLAN: _A-fib with RVR: With history of atrial fibrillation post ablation therapy with previous history of cardioversion few times has been very compliant with her medicationSpecially her Eliquis 5 mg twice a day was on metoprolol has been seeing cardiology regularly. Will consult cardiology continue Cardizem drip if no response patient might require to go on amiodarone. _Right leg wound with topical dressing culture will be done wound care along with infectious disease referral will be done start patient on vancomycin, Aquacel silver dressing change every 48 hours. _Severe cellulitis of the left leg again continue dressing precautions from significant infection on side will continue vancomycin topical dressing. _Anasarca: Has been on furosemide and spironolactone resume both medication. _Congestive heart failure: Mostly systolic dysfunction with chronic diastolic as well. Remain on diuretics, consult cardiology Echocardiogram will be done she is to stay on lisinopril smaller dose of beta-terry. _Severe debility not able to ambulate and walk will consult social media marketing specialist and physical therapy titrate activity gradually will help the patient eventually might require need rehab. _Hyponatremia: Very mild most likely the effect of the infection along with diuretics continue to watch sodium carefully repeat sodium in the morning. _Hyperlipidemia: Continue atorvastatin 20 mg a day. _Severe GERD: Remain on pantoprazole. _Bilateral pelvic fracture within last 6 months has been ambulating with a walker still not doing that well again physical therapy will be more helpful. _Anticoagulation: Remain on Eliquis. _GI prophylaxis: Remain on pantoprazole. CODE STATUS: Full code. Admit patient to the inpatient service for more than 2 night stay. Past Medical History Past Medical History: Atrial Fibrillation, Heart Failure, Hyperlipidemia, Hypertension, Osteoarthritis (OA), Rheumatoid Arthritis (RA) Additional Past Medical History / Comment(s): Paroxysmal afib, cardiac tamponade/pericardial window, possible rheumatoid arthritis, osteoporosis, hx diverticular disease, benign colon polp. bruised area RT BREAST FROM FALL 6 WEEKS AGO- due to blood thinner use-NOT COMPLETELY GONE History of Any Multi-Drug Resistant Organisms: None Reported Past Surgical History: Breast Surgery, Section, EPS, Joint Replacement, Tonsillectomy, Tubal Ligation Additional Past Surgical History / Comment(s): Cardioversions, EPS with ablations, pericardial window, bilateral total knee replacements, D&Cs, R breast benign lumpectomy, colonoscopy, bilateral cataract removals/lens implants, PAIN CLINIC PROCEDURES, OPEN HEART SX R/T CATH PUNCTURED HOLE IN HEART- Past Anesthesia/Blood Transfusion Reactions: No Reported Reaction Additional Past Anesthesia/Blood Transfusion Reaction / Comment(s): Pt has 2U PRBCs with a heart cath. Cath punctured a hole in her heart, and she ended up needing open heart surgery. Past Psychological History: No Psychological Hx Reported Smoking Status: Never smoker Past Alcohol Use History: None Reported Past Drug Use History: None Reported - Past Family History Father Family Medical History: Cancer, CVA/TIA Additional Family Medical History / Comment(s): Father at age 80 from bladder cancer, with history of CVA. Mother Family Medical History: Myocardial Infarction ([place]) Additional Family Medical History / Comment(s): Mother at age 42 from a myocardial infarction. Brother(s) Family Medical History: Blood Disorder, CVA/TIA Additional Family Medical History / Comment(s): Patient was 4 brothers and one has history of factor V, 3 have had strokes. Medications and Allergies Home Medications Medication Instructions Recorded Confirmed Type Apixaban [Eliquis] 5 mg PO BID 12/08/22 12/21/23 History Albuterol Sulfate [Albuterol 2 puff INHALATION RT-Q4H PRN 12/21/23 12/21/23 History Sulfate Hfa] Calcium Citrate 400mg 400 mg PO DAILY 12/21/23 12/21/23 History Cholecalciferol [Vitamin D3 (25 25 mcg PO DAILY 12/21/23 12/21/23 History Mcg = 1000 Iu)] Citrical Max Plus Vitamin D3 1 tab PO DAILY 12/21/23 12/21/23 History Furosemide [Lasix] 20 mg PO DAILY 12/21/23 12/21/23 History Ibandronate Sodium [Boniva] 150 mg PO Q30D 12/21/23 12/21/23 History Lidocaine 5% Patch [Lidoderm 5% 1 patch TRANSDERM DAILY PRN 12/21/23 12/21/23 History Patch] Magnesium Oxide [Mag-Ox] 400 mg PO DAILY 12/21/23 12/21/23 History Multivit with Calcium,Iron,Min 1 tab PO DAILY 12/21/23 12/21/23 History [Women's Multivitamin] Omeprazole 40 mg PO DAILY 12/21/23 12/21/23 History Rosuvastatin [Crestor] 10 mg PO HS 12/21/23 12/21/23 History SILVER sulfADIAZINE CREAM 1 applic TOPICAL MOWEFR 12/21/23 12/21/23 History [Silvadene Cream] Vitamin B-12 & Vitamin B-Complex 1 tab PO DAILY 12/21/23 12/21/23 History With Vitamin C Vitamin C 900mg With Vitamin D3 1 tab PO DAILY 12/21/23 12/21/23 History 25mcg & Zinc 11mg lisinopriL [Zestril] 5 mg PO BID 12/21/23 12/21/23 History Allergies Allergy/AdvReac Type Severity Reaction Status Date / Time contact metal agent Allergy Unknown PAIN Verified 12/21/23 13:00 adhesive tape Allergy Rash/Hives Verified 12/21/23 13:00 nickel Allergy burning, Verified 12/21/23 13:00 pain Physical Exam Vitals: Vital Signs Temp Pulse Resp BP Pulse Ox 12/21/23 18:30 109 H 24 119/96 98 12/21/23 18:00 112 H 24 109/88 97 12/21/23 17:00 112 H 20 109/93 97 12/21/23 16:30 112 H 20 93/67 98 12/21/23 16:00 121 H 18 103/88 98 12/21/23 15:30 96 20 117/80 98 12/21/23 14:45 106 H 20 128/92 99 12/21/23 14:15 101 H 21 120/94 98 12/21/23 14:00 135 H 22 107/79 97 12/21/23 13:30 116 H 24 115/84 98 12/21/23 13:00 126 H 22 114/76 98 12/21/23 12:55 126 H 18 110/80 98 12/21/23 12:50 144 H 25 H 93/76 96 12/21/23 12:40 154 H 22 90/68 98 12/21/23 12:30 120 H 20 91/69 96 12/21/23 12:20 154 H 20 109/98 98 12/21/23 12:10 151 H 22 106/92 99 12/21/23 12:05 149 H 20 83/60 99 12/21/23 12:00 137 H 22 102/83 97 12/21/23 11:59 128 H 20 102/83 94 L 12/21/23 11:55 128 H 18 97/84 96 12/21/23 11:50 149 H 20 109/83 94 L 12/21/23 11:45 181 H 20 94 L 12/21/23 11:35 172 H 20 99/71 95 12/21/23 11:20 97.7 F 151 H 18 83/58 96 Intake and Output 12/21/23 12/21/23 12/21/23 06:59 14:59 22:59 Other: Weight 63.503 kg Results CBC & Chem 7: 12/21/23 11:44 12/21/23 11:44 Labs: Abnormal Lab Results - Last 24 Hours (Table) 12/21/23 12/21/23 12/21/23 Range/Units 11:44 11:44 11:44 Neutrophils # 7.9 H (1.3-7.7) k/uL INR 1.2 H (<1.2) Sodium 129 L (137-145) mmol/L Chloride 94 L (98-107) mmol/L BUN 46 H (7-17) mg/dL Glucose 128 H (74-99) mg/dL Magnesium 2.4 H (1.6-2.3) mg/dL Total Bilirubin 2.1 H (0.2-1.3) mg/dL AST 99 H (14-36) U/L ALT 141 H (4-34) U/L Total Protein 6.2 L (6.3-8.2) g/dL
[2023-12-21 22:24] LABS: Appearance,Urine Clear (Clear); Bilirubin,Urine Negative (Negative); Blood,Urine Negative (Negative); Color,Urine Colorless; Glucose,Urine (UA) Negative (Negative); Ketones,Urine Negative (Negative); Leukocyte Esterase,Urine Negative (Negative); Nitrite,Urine Negative (Negative); PH, Urine 6.5 (5.0-8.0); Protein,Urine Negative (Negative); Specific Gravity,Urine 1.007 (1.001-1.035); Urobilinogen,Urine <2.0 mg/dL (<2.0)
--- NOTE | 2023-12-22 08:39 | US ---
EXAMINATION TYPE: US venous doppler duplex LE BI DATE OF EXAM: 12/22/2023 8:00 AM COMPARISON: NONE CLINICAL INDICATION: Female, 83 years old with history of Swelling; edema SIDE PERFORMED: Bilateral TECHNIQUE: The lower extremity deep venous system is examined utilizing real time linear array sonog ruthy with graded compression, doppler sonography and color-flow sonography. VESSELS IMAGED: Common Femoral Vein Deep Femoral Vein Greater Saphenous Vein * Femoral Vein Popliteal Vein Small Saphenous Vein * Proximal Calf Veins (* superficial vessels) Right Leg: Negative for DVT Left Leg: Negative for DVT IMPRESSION: Grayscale, color doppler, spectral doppler imaging performed of the deep veins of the lo wer extremities. There is normal flow, compressibility, vascular waveforms.
[2023-12-22 08:46] LABS: Basophils % (A) 0 %; Eosinophils # (A) 0.1 k/uL (0-0.7); Eosinophils % (A) 1 %; HCT 40.9 % (34.0-46.0); HGB 13.6 gm/dL (11.4-16.0); Hypochromasia Slight; Lymphocytes # (A) 0.8 k/uL (1.0-4.8); Lymphocytes % (A) 8 %; MCH 32.2 pg (25.0-35.0); MCHC 33.3 g/dL (31.0-37.0); MCV 96.5 fL (80.0-100.0); Mean Platelet Volume 7.7; Monocytes # (A) 0.7 k/uL (0-1.0); Monocytes % (A) 7 %; Neutrophils # (A) 8.8 k/uL (1.3-7.7); Neutrophils % (A) 84 %; Platelet Count 193 k/uL (150-450); RBC 4.24 m/uL (3.80-5.40); RDW 15.3 % (11.5-15.5); WBC 10.6 k/uL (3.8-10.6)
[2023-12-22] MEDS: CALCIUM CARB-VIT D 500 MG-5 MCG TAB PO SCH (08:50)
[2023-12-22] MEDS: ASCORBIC ACID 500 MG TAB PO SCH (08:50)
[2023-12-22] MEDS: CALCIUM CARBONATE 500 MG CHEWABLE PO SCH (08:50)
[2023-12-22] MEDS: PANTOPRAZOLE 40 MG TABLET PO SCH (08:51)
[2023-12-22] MEDS: MAGNESIUM OXIDE 400 MG TAB PO SCH (08:51)
[2023-12-22] MEDS: MULTIVITAMINS, THERA 1 EACH TAB PO SCH (08:51)
[2023-12-22] MEDS: CHOLECALCIFEROL 25 MCG (1000 IU) TABLET PO SCH (08:51)
[2023-12-22] MEDS ORDERED: FUROSEMIDE 20 MG TAB PO SCH (09:00)
[2023-12-22] MEDS ORDERED: VITAMIN B12 PO SCH (09:00)
[2023-12-22] MEDS ORDERED: VITAMIN B COMPLEX PO SCH (09:00)
[2023-12-22] MEDS ORDERED: PANTOPRAZOLE 40 MG/10 ML VIAL IV SCH (09:00)
[2023-12-22] MEDS ORDERED: VITAMIN C PO SCH (09:00)
[2023-12-22 09:10] LABS: ALT 107 U/L (4-34); AST 61 U/L (14-36); African American GFR (CKD) 79 (>60 ml/min/1.73 sqM); Albumin 3.3 g/dL (3.5-5.0); Alkaline Phosphatase 66 U/L (38-126); Anion Gap 8 mmol/L; Blood Urea Nitrogen 38 mg/dL (7-17); Calcium 8.5 mg/dL (8.4-10.2); Carbon Dioxide 27 mmol/L (22-30); Chloride 97 mmol/L (98-107); Glucose 130 mg/dL (74-99); Non-African American GFR(CKD) 69 (>60 ml/min/1.73 sqM); Potassium 3.6 mmol/L (3.5-5.1); Sodium 132 mmol/L (137-145); Total Protein 5.6 g/dL (6.3-8.2)
[2023-12-22] MEDS: VANCOMYCIN 1,250 MG in SODIUM CHLORIDE 0.9% 250 ML IVPB SCH (12:39)
--- NOTE | 2023-12-22 12:42 | P.CONS ---
History of Present Illness - Reason for Consult Consult date: 12/22/23 wound care - History of Present Illness This is an 83-year-old patient who suffered a trauma to bilateral lower extremities approximately 3 weeks ago. Patient's past medical history significant for atrial fibrillation, CHF, hypertension, high cholesterol. Patient has a skin care tear to the right anterior lower extremity with serous drainage noted. The ulceration measures 0.5 x 1.5 x 0.1 cm wound edges are attached to the wound base no tunneling or undermining noted. Granulation seen throughout the wound bed with minimal slough and nonviable tissue present. Patient has a nonhealing ulceration to the right anterior lower extremity with fat layer exposure with significant amount of slough and Viable tissue present. Minimal granulation noted. Wound edges are attached to the wound base. Ulceration measures approximately 0.6 x 2.5 x 0.1 cm. No tunneling or undermining noted. Review Of Systems: Constitutional: No fever, no chills, no night sweats. No weight change. No weakness, fatigue or lethargy. No daytime sleepiness. Integumentary:reports wounds, no lesions. No rash or pruritus. No unusual bruising. No change in hair or nails. Physical exam: General Appearance: Alert, cooperative, no distress, appears stated age. Skin: See HPI all other Skin color, texture, tugor normal, no rashes or lesions. Neurologic: Alert oriented x3 Assessment: 1. Nonhealing ulceration with fat layer exposure right lower extremity 2. Nonhealing ulceration with skin breakdown left lower extremity Plan: 1. Right lower extremity: Apply honey gel, dry gauze rolled gauze and secure with paper tape. Wrap with Jean Paul wrap for compression. Change Tuesday. 2. Left lower extremity ulceration: Apply zinc barrier cream ABD rolled gauze secure with tape wrap with Jean Paul wrap for compression. Change daily. 3. Avoid border foam at this time patient is nontolerant to the dressing. 4. Patient would benefit from advanced wound care and wound care setting. We have To see her upon discharge. Thank you for the consultation any questions please contact the wound care center DNP note has been reviewed and discussed with Dr. Skinner and the impression and plan of care has been directed as dictated. Past Medical History Past Medical History: Atrial Fibrillation, Heart Failure, Hyperlipidemia, Hypertension, Osteoarthritis (OA), Rheumatoid Arthritis (RA) Additional Past Medical History / Comment(s): Paroxysmal afib, cardiac tamponade/pericardial window, possible rheumatoid arthritis, osteoporosis, hx diverticular disease, benign colon polp. bruised area RT BREAST FROM FALL 6 WEEKS AGO- due to blood thinner use-NOT COMPLETELY GONE History of Any Multi-Drug Resistant Organisms: None Reported Past Surgical History: Breast Surgery, Section, EPS, Joint Replacement, Tonsillectomy, Tubal Ligation Additional Past Surgical History / Comment(s): Cardioversions, EPS with ablations, pericardial window, bilateral total knee replacements, D&Cs, R breast benign lumpectomy, colonoscopy, bilateral cataract removals/lens implants, PAIN CLINIC PROCEDURES, OPEN HEART SX R/T CATH PUNCTURED HOLE IN HEART- Past Anesthesia/Blood Transfusion Reactions: No Reported Reaction Additional Past Anesthesia/Blood Transfusion Reaction / Comm: Pt has 2U PRBCs with a heart cath. Cath punctured a hole in her heart, and she ended up needing open heart surgery. Past Psychological History: No Psychological Hx Reported Additional Psychological History / Comment(s): Pt resides with her spouse. She is independent. Smoking Status: Never smoker Past Alcohol Use History: None Reported Additional Past Alcohol Use History / Comment(s): Patient is a lifelong nonsmoker, no alcohol use, no illicit drug use or marijuana use. Patient does not require CPAP, oxygen. She is ambulatory without equipment. Past Drug Use History: None Reported - Past Family History Father Family Medical History: Cancer, CVA/TIA Additional Family Medical History / Comment(s): Father at age 80 from bladder cancer, with history of CVA. Mother Family Medical History: Myocardial Infarction ([place]) Additional Family Medical History / Comment(s): Mother at age 42 from a myocardial infarction. Brother(s) Family Medical History: Blood Disorder, CVA/TIA Additional Family Medical History / Comment(s): Patient was 4 brothers and one has history of factor V, 3 have had strokes. Medications and Allergies Home Medications Medication Instructions Recorded Confirmed Type Apixaban [Eliquis] 5 mg PO BID 12/08/22 12/21/23 History Albuterol Sulfate [Albuterol 2 puff INHALATION RT-Q4H PRN 12/21/23 12/21/23 History Sulfate Hfa] Calcium Citrate 400mg 400 mg PO DAILY 12/21/23 12/21/23 History Cholecalciferol [Vitamin D3 (25 25 mcg PO DAILY 12/21/23 12/21/23 History Mcg = 1000 Iu)] Citrical Max Plus Vitamin D3 1 tab PO DAILY 12/21/23 12/21/23 History Furosemide [Lasix] 20 mg PO DAILY 12/21/23 12/21/23 History Ibandronate Sodium [Boniva] 150 mg PO Q30D 12/21/23 12/21/23 History Lidocaine 5% Patch [Lidoderm 5% 1 patch TRANSDERM DAILY PRN 12/21/23 12/21/23 History Patch] Magnesium Oxide [Mag-Ox] 400 mg PO DAILY 12/21/23 12/21/23 History Multivit with Calcium,Iron,Min 1 tab PO DAILY 12/21/23 12/21/23 History [Women's Multivitamin] Omeprazole 40 mg PO DAILY 12/21/23 12/21/23 History Rosuvastatin [Crestor] 10 mg PO HS 12/21/23 12/21/23 History SILVER sulfADIAZINE CREAM 1 applic TOPICAL MOWEFR 12/21/23 12/21/23 History [Silvadene Cream] Vitamin B-12 & Vitamin B-Complex 1 tab PO DAILY 12/21/23 12/21/23 History With Vitamin C Vitamin C 900mg With Vitamin D3 1 tab PO DAILY 12/21/23 12/21/23 History 25mcg & Zinc 11mg lisinopriL [Zestril] 5 mg PO BID 12/21/23 12/21/23 History Allergies Allergy/AdvReac Type Severity Reaction Status Date / Time contact metal agent Allergy Unknown PAIN Verified 12/21/23 13:00 adhesive tape Allergy Rash/Hives Verified 12/21/23 13:00 nickel Allergy burning, Verified 12/21/23 13:00 pain Physical Exam Vitals: Vital Signs Temp Pulse Pulse Resp BP BP Pulse Ox 12/22/23 12:00 97.6 F 64 20 114/61 98 12/22/23 08:00 98 F 72 20 123/79 96 12/22/23 04:00 102 H 16 124/78 95 12/22/23 02:00 16 12/22/23 00:00 16 12/21/23 23:16 97.9 F 98 16 113/84 96 12/21/23 22:14 92 18 105/80 97 12/21/23 22:00 98/72 12/21/23 21:00 99 23 99/81 12/21/23 20:00 93 24 101/72 12/21/23 19:29 104 H 12/21/23 19:00 106 H 22 112/78 96 12/21/23 18:30 109 H 24 119/96 98 12/21/23 18:00 112 H 24 109/88 97 12/21/23 17:00 112 H 20 109/93 97 12/21/23 16:30 112 H 20 93/67 98 12/21/23 16:00 121 H 18 103/88 98 12/21/23 15:30 96 20 117/80 98 12/21/23 14:45 106 H 20 128/92 99 12/21/23 14:15 101 H 21 120/94 98 12/21/23 14:00 135 H 22 107/79 97 12/21/23 13:30 116 H 24 115/84 98 12/21/23 13:00 126 H 22 114/76 98 12/21/23 12:55 126 H 18 110/80 98 12/21/23 12:50 144 H 25 H 93/76 96 12/21/23 12:40 154 H 22 90/68 98 Intake and Output 12/21/23 12/22/23 12/22/23 22:59 06:59 14:59 Intake Total 89.333 120 Output Total 300 200 Balance -210.667 -80 Intake: Intake, IV Titration 89.333 Amount Diltiazem 125 mg In 89.333 Sodium Chloride 0.9% 100 ml @ 5 MG/HR 5 mls/hr IV .Q24H [facility] Rx#:[id number] Oral 120 Output: Gastric Drainage 0 Urine 300 200 Stool 0 Urine/Stool Mix 0 Emesis 0 Oral Regurgitation 0 Other 0 Other: Voiding Method Toilet # Voids 1 0 # Bowel Movements 1 Weight 64.9 kg Results CBC & Chem 7: 12/22/23 08:18 12/22/23 08:18 Labs: Abnormal Lab Results - Last 24 Hours (Table) 12/22/23 12/22/23 Range/Units 08:18 08:18 Neutrophils # 8.8 H (1.3-7.7) k/uL Lymphocytes # 0.8 L (1.0-4.8) k/uL Sodium 132 L (137-145) mmol/L Chloride 97 L (98-107) mmol/L BUN 38 H (7-17) mg/dL Glucose 130 H (74-99) mg/dL AST 61 H (14-36) U/L ALT 107 H (4-34) U/L Total Protein 5.6 L (6.3-8.2) g/dL Albumin 3.3 L (3.5-5.0) g/dL Assessment and Plan (1) Non-pressure chronic ulcer of other part of left lower leg with fat layer exposed Current Visit: Yes Status: Acute Code(s): L97.822 - NON-PRS CHRONIC ULCER O TH PRT L LOW LEG W FAT LAYER EXPOSED SNOMED Code(s): 99946485015538172 (2) Non-pressure chronic ulcer of other part of right lower leg limited to breakdown of skin Current Visit: Yes Status: Acute Code(s): L97.811 - NON-PRS CHR ULCER OTH PRT R LOW LEG LIMITED TO BRKDWN SKIN SNOMED Code(s): 80750963690880679
[2023-12-22] MEDS: ZINC OXIDE PASTE (Z-GUARD) 1 APPLIC TOPICAL SCH (12:50)
[2023-12-22] MEDS: METOPROLOL TARTRATE 25 MG TAB PO SCH (13:20)
[2023-12-22] MEDS: HYDROcodone/APAP 7.5-325MG 1 EACH TAB PO PRN (16:26)
--- NOTE | 2023-12-22 17:45 | CA ---
Transthoracic Echo Report Name: Miya Colon Age: 83 Gender: F : 1940 Exam Date: 12/22/2023 09:01 Exam Location: [facility] Ht (in): 63 Wt (lb): 140 Ordering Physician: Alvaro Martínez MD Attending/Referring Phys: Manager [employer] uN Zapata RDCS Procedure CPT: Indications: chf Cardiac Hx: Technical Quality: Fair Contrast 1: Total Dose (mL): Contrast 2: Total Dose (mL): MEASUREMENTS (Male / Female) Normal Values 2D ECHO LV Diastolic Diameter PLAX 4.4 cm 4.2 - 5.9 / 3.9 - 5.3 cm LV Systolic Diameter PLAX 2.8 cm IVS Diastolic Thickness 1.4 cm 0.6 - 1.0 / 0.6 - 0.9 cm LVPW Diastolic Thickness 1.3 cm 0.6 - 1.0 / 0.6 - 0.9 cm LV Relative Wall Thickness 0.6 RV Internal Dim ED PLAX 3.7 cm LVOT Diameter 2.2 cm LA Systolic Diameter LX 3.5 cm 3.0 - 4.0 / 2.7 - 3.8 cm LV Diastolic Volume MOD 4C 65.0 cm??? LV Systolic Volume MOD 4C 40.4 cm??? LV Ejection Fraction MOD 4C 37.9 % LV Cardiac Index MOD 4C 1617.2 cm???/min???m??? LV Diastolic Length 4C 6.6 cm LV Systolic Length 4C 5.6 cm LV Diastolic Volume MOD 2C 71.5 cm??? LV Systolic Volume MOD 2C 43.4 cm??? LV Ejection Fraction MOD 2C 39.2 % LV Cardiac Index MOD 2C 1841.9 cm???/min???m??? LV Diastolic Length 2C 6.8 cm LV Systolic Length 2C 6.3 cm LA Volume 86.3 cm??? 18 - 58 / 22 - 52 cm??? LA Volume Index 51.0 cm???/m??? 16 - 28 cm???/m??? M-MODE Aortic Root Diameter MM 3.1 cm AV Cusp Separation MM 1.7 cm DOPPLER AV Peak Velocity 165.9 cm/s AV Peak Gradient 11.0 mmHg AV Mean Velocity 100.9 cm/s AV Mean Gradient 4.9 mmHg AV Velocity Time Integral 32.2 cm AI Peak Velocity 240.6 cm/s AI Peak Gradient 23.1 mmHg AI Pressure Half Time 187.2 ms LVOT Peak Velocity 85.8 cm/s LVOT Peak Gradient 2.9 mmHg LVOT Velocity Time Integral 13.5 cm LVOT Stroke Volume 52.5 cm??? LVOT Stroke Volume Index 31.6 ml/m??? LVOT Cardiac Index 3443.3 cm???/min???m??? AV Area Cont Eq vti 1.6 cm??? AV Area Cont Eq pk 2.0 cm??? MV Peak Velocity 199.7 cm/s MV Peak Gradient 16.0 mmHg MV Mean Velocity 128.2 cm/s MV Mean Gradient 9.4 mmHg MV Velocity Time Integral 47.0 cm MR Peak Velocity 462.2 cm/s MR Peak Gradient 85.5 mmHg TR Peak Velocity 340.9 cm/s TR Peak Gradient 46.5 mmHg Right Ventricular Systolic Press 51.5 mmHg FINDINGS Left Ventricle Left ventricular ejection fraction is estimated at 35-40 %. Moderately increased septal wall thickness. Moderately increased posterior wall thickness. Moderately reduced global left ventricular systolic function. Right Ventricle Mild right ventricular dilatation. Moderate pulmonary hypertension. Right ventricular systolic pressure estimated at 52 mm hg. Right Atrium Moderate right atrial dilatation. No right atrial thrombus or mass seen. Left Atrium Severely increased left atrial volume. Mildly increased atrial area. Mitral Valve Mild thickening/calcification of the anterior mitral valve leaflet. Moderate thickening/calcification of the posterior mitral valve leaflet. Moderate mitral stenosis with mean gradient of 9 mmHg Aortic Valve Thickened aortic valve without stenosis. Severe aortic regurgitation. Tricuspid Valve Structurally normal tricuspid valve. [id number] tricuspid regurgitation. Pulmonic Valve Structurally normal pulmonic valve. Mild pulmonic regurgitation. Pericardium No pericardial effusion. No pleural effusion. Aorta Normal size aortic root and proximal ascending aorta. CONCLUSIONS Diagnosis congestive heart failure Reduced LV systolic function 35% RV enlargement Moderate pulmonary hypertension Biatrial enlargement Previewed by: Dr. Víctor Narvaez MD (Electronically Signed) Final Date: 22 December 2023 17:44
--- NOTE | 2023-12-22 20:34 | P.PN ---
Subjective Progress Note Date: 12/22/23 Principal diagnosis: Reason for follow-up is right lower extremity wound and concern for cellulitis Patient is a 83-year-old female with a past medical history significa nt for atrial fibrillation heart failure hypertension hyperlipidemia osteoarthritis rheumatoid arthritis patient apparently has been dealing with the wound to the right lower extremity that apparently has been there for couple of weeks now presenting to hospital with worsening swelling to lower extremity and there is concern for possible wound infection and cellulitis prompting his consultation. On today's evaluation that is 12/22/2023, Patient is afebrile this morning patient denies having any chest pain shortness of breath or cough, the patient is breathing comfortably and currently on room air, patient denies any abdominal pain no diarrhea no nausea no vomiting patient mention swelling of the lower extremity has slightly decreased. The patient white count is 10.6, creatinine 0.80 cultures are currently pending Objective - Vital Signs Vital signs: Vital Signs Temp 98.4 F 12/22/23 16:20 Pulse 59 L 12/22/23 16:20 Resp 20 12/22/23 16:20 BP 102/69 12/22/23 16:20 Pulse Ox 95 12/22/23 16:20 FiO2 Intake & Output 12/22/23 12/22/23 12/23/23 06:59 18:59 06:59 Intake Total 89.333 360 Output Total 300 400 200 Balance -210.667 -40 -200 Weight 64.9 kg Intake: Intake, IV Titration 89.333 Amount Diltiazem 125 mg In 89.333 Sodium Chloride 0.9% 100 ml @ 5 MG/HR 5 mls/hr IV .Q24H [facility] Rx#:[id number] Oral 360 Output: Gastric Drainage 0 Urine 300 400 200 Stool 0 Urine/Stool Mix 0 Emesis 0 Oral Regurgitation 0 Other 0 Other: Voiding Method Toilet # Voids 1 0 # Bowel Movements 1 - Exam GENERAL DESCRIPTION: An elderly female lying in bed in no distress RESPIRATORY SYSTEM: Unlabored breathing , decreased breath sounds at bases HEART: S1 S2 regular rate and rhythm , ABDOMEN: Soft , no tenderness EXTREMITIES: Diffuse swelling of bilateral lower extremity wound is currently dressed - Labs CBC & Chem 7: 12/22/23 08:18 12/22/23 08:18 Labs: Abnormal Lab Results - Last 24 Hours (Table) 12/22/23 12/22/23 Range/Units 08:18 08:18 Neutrophils # 8.8 H (1.3-7.7) k/uL Lymphocytes # 0.8 L (1.0-4.8) k/uL Sodium 132 L (137-145) mmol/L Chloride 97 L (98-107) mmol/L BUN 38 H (7-17) mg/dL Glucose 130 H (74-99) mg/dL AST 61 H (14-36) U/L ALT 107 H (4-34) U/L Total Protein 5.6 L (6.3-8.2) g/dL Albumin 3.3 L (3.5-5.0) g/dL Microbiology - Last 24 Hours (Table) 12/22/23 06:27 Gram Stain - Preliminary Leg - Right Assessment and Plan (1) Cellulitis Current Visit: Yes Status: Acute Code(s): L03.90 - CELLULITIS, UNSPECIFIED SNOMED Code(s): 677702427 (2) Leg wound, right Current Visit: Yes Status: Acute Code(s): S81.801A - UNSPECIFIED OPEN WOUND, RIGHT LOWER LEG, INITIAL ENCOUNTER SNOMED Code(s): 56175352684650220 Plan: 1patient presented to hospital with increasing swelling to bilateral lower extremity in this patient who did have a wound to the right anterior leg for couple of weeks no concern for wound infection and secondary cellulitis likely from gram-positive skin cristy 2-local wound culture has been obtained and currently pending 3- Doppler ultrasound bilateral lower extremity negative we will apply Jean Paul wrap to get some the swelling down 4-patient to continue vancomycin pharmacy to dose target trough of 15 while watching kidney function and Vanco trough closely and local wound care per the wound care team Dictation was produced using [employer] dictation software. please excuse any grammatical, word or spelling errors. Time with Patient: Less than 30
--- NOTE | 2023-12-22 23:13 | P.CRDCN ---
History of Present Illness Consult date: 12/22/23 History of present illness: HISTORY OF PRESENTING ILLNESS Patient is a 82-year-old female known to Dr. Cedillo with past medical history of paroxysmal atrial fibrillation s/p cardioversion x 2, atrial fibrillation ablation x [address] Narvaez with most recent ablation at [facility] in April 2022. She has history of hypertension, dyslipidemia, osteoporosis. Last she was hospitalized in December 10, 2019 for 4-week symptoms and atrial fibrillation RVR. Apparently since April 2022 ablation she has been in sinus rhythm until December 09 admission. This time she is admitted again, this time for increase generalized weakness, open sore in bilateral legs and atrial fibrillation with RVR. Admission labs shows hemoglobin 13.6, BUN 38, creatinine 0.8, troponin x 3 was negative, BNP elevated at 9000. REVIEW OF SYSTEMS 14 point review of system is negative except what is mentioned above in HPI. PHYSICAL EXAMINATION Vital signs reviewed. Head: Normocephalic. Eyes: Sclerae nonicteric. Neck: Brisk carotid upstroke, no jugular venous distention. Lungs: Poor inspiratory effort, diminished breath sounds Heart: Irregularly irregular, mild systolic murmur audible Abdomen: Soft nontender, positive bowel sounds. Extremities: 1+ pitting edema bilateral lower extremity with chronic venous nonhealing ulcers, dressing in place, neuro: Alert, oritented, no focal deficits. Detailed neuro exam was not performed. ASSESSMENT Afib RVR prior multiple cardiac ablations with last Apr 2022 at [place], relapsed in November 2023 Mild HFrEF exacerbation, Non ischemic cardiomyopathy EF 35-40% Valvular heart disease with moderate to severe aortic regurgitation, and mild to moderate mitral stenosis Moderate to severe pulm hypertension Cardiac testing Echocardiogram showed EF 35 to 40%, moderate concentric LVH, severe LA dilatation, moderate mitral calcification with moderate stenosis, pulm hypertension with RVSP 32 mmHg, severe aortic regurgitation PLAN Continue Eliquis 5 twice daily Continue Lasix 20 mg IV twice daily. On discharge consider discharging her on torsemide 20 mg Lisinopril 5 mg twice daily, Start metoprolol 25 mg twice daily. Consider increasing dose to 50 mg BID. Continue Cardizem drip. reevaluate tomorrow Consider possible outpatient ANABEL to evaluate for valvular heart disease Brady Jernigan MD, FACC, RPVI Thank you for allowing [facility] to participate in this patient's care. Feel free to reach out in case of any followup questions. Past Medical History Past Medical History: Atrial Fibrillation, Heart Failure, Hyperlipidemia, Hypertension, Osteoarthritis (OA), Rheumatoid Arthritis (RA) Additional Past Medical History / Comment(s): Paroxysmal afib, cardiac tamponade/pericardial window, possible rheumatoid arthritis, osteoporosis, hx d iverticular disease, benign colon polp. bruised area RT BREAST FROM FALL 6 WEEKS AGO- due to blood thinner use-NOT COMPLETELY GONE History of Any Multi-Drug Resistant Organisms: None Reported Past Surgical History: Breast Surgery, Section, EPS, Joint Replacement, Tonsillectomy, Tubal Ligation Additional Past Surgical History / Comment(s): Cardioversions, EPS with ablations, pericardial window, bilateral total knee replacements, D&Cs, R breast benign lumpectomy, colonoscopy, bilateral cataract removals/lens implants, PAIN CLINIC PROCEDURES, OPEN HEART SX R/T CATH PUNCTURED HOLE IN HEART- Past Anesthesia/Blood Transfusion Reactions: No Reported Reaction Additional Past Anesthesia/Blood Transfusion Reaction / Comment(s): Pt has 2U PRBCs with a heart cath. Cath punctured a hole in her heart, and she ended up needing open heart surgery. Past Psychological History: No Psychological Hx Reported Additional Psychological History / Comment(s): Pt resides with her spouse. She is independent. Smoking Status: Never smoker Past Alcohol Use History: None Reported Additional Past Alcohol Use History / Comment(s): Patient is a lifelong nonsmoker, no alcohol use, no illicit drug use or marijuana use. Patient does not require CPAP, oxygen. She is ambulatory without equipment. Past Drug Use History: None Reported - Past Family History Father Family Medical History: Cancer, CVA/TIA Additional Family Medical History / Comment(s): Father at age 80 from bladder cancer, with history of CVA. Mother Family Medical History: Myocardial Infarction (OR) Additional Family Medical History / Comment(s): Mother at age 42 from a myocardial infarction. Brother(s) Family Medical History: Blood Disorder, CVA/TIA Additional Family Medical History / Comment(s): Patient was 4 brothers and one has history of factor V, 3 have had strokes. Medications and Allergies Home Medications Medication Instructions Recorded Confirmed Type Apixaban [Eliquis] 5 mg PO BID 12/08/22 12/21/23 History Albuterol Sulfate [Albuterol 2 puff INHALATION RT-Q4H PRN 12/21/23 12/21/23 His tory Sulfate Hfa] Calcium Citrate 400mg 400 mg PO DAILY 12/21/23 12/21/23 History Cholecalciferol [Vitamin D3 (25 25 mcg PO DAILY 12/21/23 12/21/23 History Mcg = 1000 Iu)] Citrical Max Plus Vitamin D3 1 tab PO DAILY 12/21/23 12/21/23 History Furosemide [Lasix] 20 mg PO DAILY 12/21/23 12/21/23 History Ibandronate Sodium [Boniva] 150 mg PO Q30D 12/21/23 12/21/23 History Lidocaine 5% Patch [Lidoderm 5% 1 patch TRANSDERM DAILY PRN 12/21/23 12/21/23 History Patch] Magnesium Oxide [Mag-Ox] 400 mg PO DAILY 12/21/23 12/21/23 History Multivit with Calcium,Iron,Min 1 tab PO DAILY 12/21/23 12/21/23 History [Women's Multivitamin] Omeprazole 40 mg PO DAILY 12/21/23 12/21/23 History Rosuvastatin [Crestor] 10 mg PO HS 12/21/23 12/21/23 History SILVER sulfADIAZINE CREAM 1 applic TOPICAL MOWEFR 12/21/23 12/21/23 History [Silvadene Cream] Vitamin B-12 & Vitamin B-Complex 1 tab PO DAILY 12/21/23 12/21/23 History With Vitamin C Vitamin C 900mg With Vitamin D3 1 tab PO DAILY 12/21/23 12/21/23 History 25mcg & Zinc 11mg lisinopriL [Zestril] 5 mg PO BID 12/21/23 12/21/23 History Allergies Allergy/AdvReac Type Severity Reaction Status Date / Time contact metal agent Allergy Unknown PAIN Verified 12/21/23 13:00 adhesive tape Allergy Rash/Hives Verified 12/21/23 13:00 nickel Allergy burning, Verified 12/21/23 13:00 pain Physical Exam Vitals: Vital Signs Temp Pulse Resp BP Pulse Ox 12/22/23 20:00 98.0 F 99 20 109/75 96 12/22/23 16:20 98.4 F 59 L 20 102/69 95 12/22/23 12:00 97.6 F 64 20 114/61 98 12/22/23 08:00 98 F 72 20 123/79 96 12/22/23 04:00 102 H 16 124/78 95 12/22/23 02:00 16 12/22/23 00:00 16 12/21/23 23:16 97.9 F 98 16 113/84 96 Intake and Output 12/22/23 12/22/23 12/23/23 14:59 22:59 06:59 Intake Total 240 120 Output Total 400 200 Balance -160 -80 Intake: Oral 240 120 Output: Gastric Drainage 0 Urine 400 200 Stool 0 Urine/Stool Mix 0 Emesis 0 Oral Regurgitation 0 Other 0 Other: Voiding Method Toilet # Voids 0 # Bowel Movements 1 Results 12/22/23 08:18 12/22/23 08:18 Cardiac Enzymes 12/22/23 Range/Units 08:18 AST 61 H (14-36) U/L CBC 12/22/23 Range/Units 08:18 WBC 10.6 (3.8-10.6) k/uL RBC 4.24 (3.80-5.40) m/uL Hgb 13.6 (11.4-16.0) gm/dL Hct 40.9 (34.0-46.0) % Plt Count 193 (150-450) k/uL Comprehensive Metabolic Panel 12/22/23 Range/Units 08:18 Sodium 132 L (137-145) mmol/L Potassium 3.6 (3.5-5.1) mmol/L Chloride 97 L (98-107) mmol/L Carbon Dioxide 27 (22-30) mmol/L BUN 38 H (7-17) mg/dL Creatinine 0.80 (0.52-1.04) mg/dL Glucose 130 H (74-99) mg/dL Calcium 8.5 (8.4-10.2) mg/dL AST 61 H (14-36) U/L ALT 107 H (4-34) U/L Alkaline Phosphatase 66 (38-126) U/L Total Protein 5.6 L (6.3-8.2) g/dL Albumin 3.3 L (3.5-5.0) g/dL Current Medications Generic Name Dose Route Start Last Admin Trade Name Freq PRN Reason Stop Dose Admin Hydrocodone Bitart/Acetaminophen 1 each 12/22/23 15:30 12/22/23 16:26 Hydrocodone/Apap 7.5-325mg 1 Each Tab PO 1 each Q6HR PRN Administration Pain Albuterol Sulfate 2.5 mg 12/21/23 13:25 Albuterol Nebulized 2.5 Mg/3 Ml INHALATION RT-Q4H PRN Shortness Of Breath Apixaban 5 mg 12/21/23 21:00 12/22/23 21:04 Apixaban 5 Mg Tab PO 5 mg BID PHUONG Administration Protocol Ascorbic Acid 1,000 mg 12/22/23 09:00 12/22/23 08:50 Ascorbic Acid 500 Mg Tab PO 1,000 mg DAILY PHUONG Administration Atorvastatin Calcium 20 mg 12/21/23 21:00 12/22/23 21:04 Atorvastatin 20 Mg Tab PO 20 mg HS PHUONG Administration Calcium Carbonate 1 each 12/22/23 09:00 12/22/23 08:50 Calcium Carb-Vit D 500 Mg-5 Mcg Tab PO 1 each DAILY PHUONG Administration Calcium Carbonate/Glycine 500 mg 12/22/23 09:00 12/22/23 08:50 Calcium Carbonate 500 Mg Chewable PO 500 mg DAILY PHUONG Administration Cholecalciferol 25 mcg 12/22/23 09:00 12/22/23 08:51 Cholecalciferol 25 Mcg (1000 Iu) Tablet PO 25 mcg DAILY PHUONG Administration Furosemide 20 mg 12/21/23 21:00 12/22/23 21:04 Furosemide 10 Mg/Ml 2 Ml Vial IV 20 mg Q12HR PHUONG Administration Vancomycin HCl 1,250 mg/ 250 mls @ 125 mls/hr 12/22/23 13:00 12/22/23 12:39 Sodium Chloride IVPB Not Given Q24H [facility] Lidocaine 1 patch 12/21/23 13:25 Lidocaine 4% Patch TOPICAL DAILY PRN Pain Lisinopril 5 mg 12/21/23 21:00 12/22/23 21:04 Lisinopril 5 Mg Tab PO 5 mg BID PHUONG Administration Magnesium Oxide 400 mg 12/22/23 09:00 12/22/23 08:51 Magnesium Oxide 400 Mg Tab PO 400 mg DAILY PHUONG Administration Metoprolol Tartrate 50 mg 12/23/23 09:00 Metoprolol Tartrate 25 Mg Tab PO BID PHUONG Multivitamins 1 each 12/22/23 09:00 12/22/23 08:51 Multivitamins, Thera 1 Each Tab PO 1 each DAILY PHUONG Administration Naloxone HCl 0.2 mg 12/21/23 13:23 Naloxone 0.4 Mg/Ml 1 Ml Vial IV Q2M PRN Opioid Reversal Patients Own ( 150 mg 01/04/24 07:00 Ibandronate Sodium [ PO Boniva] 150 Mg Q30D PHUONG Tablet) Ondansetron HCl 4 mg 12/21/23 13:23 Ondansetron 4 Mg/2 Ml Vial IVP Q8HR PRN Nausea And Vomiting Pantoprazole Sodium 40 mg 12/22/23 09:00 12/22/23 08:51 Pantoprazole 40 Mg Tablet PO 40 mg DAILY PHUONG Administration Petrolatum 1 applic 12/22/23 12:45 12/22/23 12:50 Zinc Oxide Paste (Z-Guard) 1 Applic TOPICAL 1 applic DAILY PHUONG Administration Protocol Intake and Output 12/22/23 12/22/23 12/23/23 14:59 22:59 06:59 Intake Total 240 120 Output Total 400 200 Balance -160 -80 Intake: Oral 240 120 Output: Gastric Drainage 0 Urine 400 200 Stool 0 Urine/Stool Mix 0 Emesis 0 Oral Regurgitation 0 Other 0 Other: Voiding Method Toilet # Voids 0 # Bowel Movements 1 12/22/23 08:18 12/22/23 08:18
[2023-12-23] MEDS: METOPROLOL TARTRATE 50 MG TAB PO SCH (06:41)
[2023-12-23 09:06] LABS: Basophils % (A) 0 %; Eosinophils # (A) 0.1 k/uL (0-0.7); Eosinophils % (A) 1 %; HCT 42.2 % (34.0-46.0); HGB 13.8 gm/dL (11.4-16.0); Hypochromasia Moderate; Lymphocytes # (A) 0.8 k/uL (1.0-4.8); Lymphocytes % (A) 10 %; MCH 31.6 pg (25.0-35.0); MCHC 32.6 g/dL (31.0-37.0); Monocytes # (A) 0.5 k/uL (0-1.0); Monocytes % (A) 6 %; Neutrophils # (A) 6.9 k/uL (1.3-7.7); Neutrophils % (A) 83 %; Platelet Count 197 k/uL (150-450); RBC 4.36 m/uL (3.80-5.40); RDW 14.8 % (11.5-15.5); WBC 8.3 k/uL (3.8-10.6)
[2023-12-23 09:24] LABS: ALT 98 U/L (4-34); AST 50 U/L (14-36); African American GFR (CKD) 85 (>60 ml/min/1.73 sqM); Albumin 3.4 g/dL (3.5-5.0); Alkaline Phosphatase 70 U/L (38-126); Anion Gap 10 mmol/L; Blood Urea Nitrogen 33 mg/dL (7-17); Calcium 8.4 mg/dL (8.4-10.2); Carbon Dioxide 23 mmol/L (22-30); Chloride 97 mmol/L (98-107); Glucose 160 mg/dL (74-99); Magnesium 2.3 mg/dL (1.6-2.3); Non-African American GFR(CKD) 74 (>60 ml/min/1.73 sqM); Potassium 4.1 mmol/L (3.5-5.1); Sodium 130 mmol/L (137-145); Total Bilirubin 1.3 mg/dL (0.2-1.3); Total Protein 5.7 g/dL (6.3-8.2)
--- NOTE | 2023-12-23 10:37 | P.PN ---
Subjective Progress Note Date: 12/22/23 HISTORY OF PRESENT ILLNESS: 83-year-old with active medical history of atherosclerotic heart disease, A-fib, congestive heart failure, hypertension, hyperlipidemia, chronic anasarca and edema, history of chronic arthritis, previous history of tamponade required pericardial window, osteoporosis, recurrent diverticulitis, who had to pelvic fracture the last year from 2 different fall, she fell 4 weeks ago and traumatized her right leg and chin area which has an open sore sized 2X.5 an inch with local dressing via visiting nurse since. He developed anasarca and side require more diuretics which already created significant problem with acute kidney injury had to back off to some degree when patient had to continue on furosemide 40 mg twice a day along with spironolactone to keep the swelling down. She become debilitated last few weeks not been able to ambulate and walk require at least 1 person pathology assistant on a regular basis to move her out of bed to the bathroom and back. She has much worsening symptoms with severe generalized weakness fatigue low-grade temperature and not been able to pull herself out of bed. With worsening symptoms today along with more open sore and draining both legs worsening of the left side on the right side ended up coming to the emergency department via EMS where was seen and evaluated surprisingly at the time of her arrival found to have pulse of 100-1 30 with A-fib with RVR blood pressure was soft on the low side running 90-1 10. Patient extremely weak not able to pull herself her laboratory value showed hyponatremia with prerenal acute kidney injury with bun of 46 creatinine 0.86 with GFR 63, slightly abnormal liver function test with probably worsening congestion from her heart function and anasarca. Troponin was negative with proBNP was 9640. Back and leg has still an open sore on the right side with the left side had small ulceration of the skin had a creatinine significant to drainage with much worsening local cellulitis. She was started on Cardizem drip to cover her A-fib with RVR and eventually had to titrate dose up to 7.5 and 10 mg to give her pulse below 100 started on Vancomycin and consult infectious disease will admit patient to the hospital for inpatient treatment management will require further wound care as well. 12/22/2023: Patient continued to have severe debility not able to ambulate and walk, her A-fib with RVR has been slightly better with up to Cardizem 7.5 mg drip switch medication to titrate her oral medication pending of cardiology consult this morning. Also patient be seen in the wound clinic in the meanwhile infectious disease change the plan currently to have her do Doppler of the lower extremity along with Jean Paul wrap to lower the swelling and anasarca and help her out and will continue vancomycin IV for her current infection pending culture. Physically patient is still quite debilitated require more than 1 person pathology assistant with physical therapy which will be titrated higher or more and talking to her and her working eventually patient will require either inpatient rehab or SNF for probably 2 weeks to take care of her wound care, possible IV antibiotics and physical therapy altogether. REVIEW OF SYSTEMS: CONSTITUTIONAL: Well-developed no acute respiratory distress. EYES: No icterus sclerae, no conjunctivitis. EARS, NOSE, MOUTH, THROAT, and FACE: No sore throat, lymphadenopathy, carotid bruits or deformity. RESPIRATORY: Slight shortness of breath no cough or wheezes. CARDIOVASCULAR: Positive PND orthopnea palpitation with rapid pulse. GASTROINTESTINAL: Lack of appetite with nausea no vomiting no diarrhea or constipation. GENITOURINARY: Polyuria and nocturia and mild incontinence. INTEGUMENT/BREAST: Negative for any muscular injury with mild osteoarthritis.. HEMATOLOGIC/LYMPHATIC: Negative for bleed or purpura. MUSCULOSKELTAL: Generalized fatigue and generalized muscle and joint discomfort. Both lower extremity had sore worse on the right than the left side with anasarca swelling and drainage from the left side. NEURLOGICAL: No LOC, Sz or syncope, blurred vision dizziness or abnormality.. BEHAVIORAL/PSYCH: Negative. ENDOCRINE: Negative. PHYSICAL EXAMINATION: General Appearance: Alert, cooperative, no distress, appears stated age. Neck HEENT: Supple, no lymphadenopathy, no thyroid enlargement, no carotid bruits. Lungs: Decreased breath sound bilaterally with fine rhonchi positive mild expiratory wheezes. Chest Wall: Decreased expansion with deep inspiration no tenderness and no deformity was found on exam, no costochondral pain or discomfort. Heart: Irregular rate and rhythm, S1, S2 positive S3 positive systolic murmur. Back: Significant lower back pain and discomfort mild curvature and scoliosis. Abdomen: Soft, non-tender, bowel sounds active all four quadrants, no masses, no organomegaly. Extremities: 2+ edema with anasarca bilaterally there is an open sore on the right leg on the medial aspect with size 2 x 0.5 inch with blue-colored dressing on and still have slightly drainage. Left leg in the lateral side had an open area with laceration of the skin did not require any stitches but the draining serous fluid. Significant puffiness and edema in the feet bilaterally worse on the right and left side with positive pulse. Pulses: 2+ and symmetric. Skin: Skin color, texture, tugor normal, no rashes or lesions. Neurologic: Alert oriented x3 cranial nerves II through XII intact, severe generalized weakness with abnormal balance and gait. ASSESSMENT AND PLAN: _A-fib with RVR: Continue Cardizem drip along with Eliquis the patientEventually will go back on higher dose of metoprolol if needed and if no response probably amiodarone will be a good choice. _Severe cardiomyopathy with reduced ejection fraction congestive heart failure: EF is 35 to 40% I will only will titrate medication management has been on diuretics currently between furosemide and Aldactone patient eventually might benefit from starting Entresto in place of her JEAN PAUL or ARB. _Right leg wound with topical dressing culture will be done wound care along with infectious disease referral will be done start patient on vancomycin, Aquacel silver dressing change every 48 hours. _Severe cellulitis of the left leg again continue dressing precautions from significant infection on side will continue vancomycin topical dressing. _Anasarca: Most likely from hypoalbuminemia along with her cardiomyopathy and heart failure causing her symptoms will continue current management with diuretics Jean Paul wrap and leg elevation also increase protein intake. _Congestive heart failure: Mostly systolic dysfunction and decreased ejection fraction worsening than before we will continue medical management. _Severe debility not able to ambulate and walk will consult social media director and physical therapy titrate activity gradually will help the patient eventually might require need rehab. _Hyponatremia: Improved sodium compared to before continue again diuretics and infection treatment. _Hyperlipidemia: Continue atorvastatin 20 mg a day. _Severe GERD: Remain on pantoprazole. _Bilateral pelvic fracture within last 6 months has been ambulating with a walker still not doing that well again physical therapy will be more helpful. _Anticoagulation: Remain on Eliquis. _GI prophylaxis: Remain on pantoprazole. Discussion: A-fib slightly better today, had severe cardiomyopathy we will titrate her medical management with help of cardiology and previously when study her cardiomyopathy was found to be A-fib related more than ischemic related at some point switching patient to Entresto keep her on furosemide along with spironolactone to be more helpful. Physically patient still have quite a bit debility not been able to ambulate and walk with the help of wound care along with cardiology and physical therapy patient eventually might need to go to rehab for further management until she is strong enough to require only 1 person pathology assistant. Otherwise she is not safe returning home at this point. Objective - Vital Signs Vital signs: Vital Signs Temp 97.9 F 12/21/23 23:16 Pulse 102 H 12/22/23 04:00 Resp 16 12/22/23 04:00 BP 124/78 12/22/23 04:00 Pulse Ox 95 12/22/23 04:00 FiO2 Intake & Output 12/21/23 12/21/23 12/22/23 06:59 18:59 06:59 Output Total 300 Balance -300 Weight 63.503 kg 64.9 kg Output: Urine 300 Other: Voiding Method Toilet # Voids 1 - Labs CBC & Chem 7: 12/23/23 08:00 12/23/23 08:00 Labs: Abnormal Lab Results - Last 24 Hours (Table) 12/21/23 12/21/23 12/21/23 Range/Units 11:44 11:44 11:44 Neutrophils # 7.9 H (1.3-7.7) k/uL INR 1.2 H (<1.2) Sodium 129 L (137-145) mmol/L Chloride 94 L (98-107) mmol/L BUN 46 H (7-17) mg/dL Glucose 128 H (74-99) mg/dL Magnesium 2.4 H (1.6-2.3) mg/dL Total Bilirubin 2.1 H (0.2-1.3) mg/dL AST 99 H (14-36) U/L ALT 141 H (4-34) U/L Total Protein 6.2 L (6.3-8.2) g/dL
--- NOTE | 2023-12-23 10:41 | P.PN ---
Subjective Progress Note Date: 12/23/23 HISTORY OF PRESENT ILLNESS: 83-year-old with active medical history of atherosclerotic heart disease, A-fib, congestive heart failure, hypertension, hyperlipidemia, chronic anasarca and edema, history of chronic arthritis, previous history of tamponade required pericardial window, osteoporosis, recurrent diverticulitis, who had to pelvic fracture the last year from 2 different fall, she fell 4 weeks ago and traumatized her right leg and chin area which has an open sore sized 2X.5 an inch with local dressing via visiting nurse since. He developed anasarca and side require more diuretics which already created significant problem with acute kidney injury had to back off to some degree when patient had to continue on furosemide 40 mg twice a day along with spironolactone to keep the swelling down. She become debilitated last few weeks not been able to ambulate and walk require at least 1 person social research assistant on a regular basis to move her out of bed to the bathroom and back. She has much worsening symptoms with severe generalized weakness fatigue low-grade temperature and not been able to pull herself out of bed. With worsening symptoms today along with more open sore and draining both legs worsening of the left side on the right side ended up coming to the emergency department via EMS where was seen and evaluated surprisingly at the time of her arrival found to have pulse of 100-1 30 with A-fib with RVR blood pressure was soft on the low side running 90-1 10. Patient extremely weak not able to pull herself her laboratory value showed hyponatremia with prerenal acute kidney injury with bun of 46 creatinine 0.86 with GFR 63, slightly abnormal liver function test with probably worsening congestion from her heart function and anasarca. Troponin was negative with proBNP was 9640. Back and leg has still an open sore on the right side with the left side had small ulceration of the skin had a creatinine significant to drainage with much worsening local cellulitis. She was started on Cardizem drip to cover her A-fib with RVR and eventually had to titrate dose up to 7.5 and 10 mg to give her pulse below 100 started on Vancomycin and consult infectious disease will admit patient to the hospital for inpatient treatment management will require further wound care as well. 12/22/2023: Patient continued to have severe debility not able to ambulate and walk, her A-fib with RVR has been slightly better with up to Cardizem 7.5 mg drip switch medication to titrate her oral medication pending of cardiology consult this morning. Also patient be seen in the wound clinic in the meanwhile infectious disease change the plan currently to have her do Doppler of the lower extremity along with Jean Paul wrap to lower the swelling and anasarca and help her out and will continue vancomycin IV for her current infection pending culture. Physically patient is still quite debilitated require more than 1 person social research assistant with physical therapy which will be titrated higher or more and talking to her and her working eventually patient will require either inpatient rehab or SNF for probably 2 weeks to take care of her wound care, possible IV antibiotics and physical therapy altogether. 12/23/2023: Long discussion with Pat today about the longer-term plan she is still pushing for her to be discharged home which is not possible currently she requires more than 1 person social research assistant, still been treated for cardiomyopathy and A-fib and still treated for debility with her current medical condition will continue IV antibiotics for better management of her wound care as well. Patient required little bit longer wound care management on daily basis and the plan probably with IV antibiotic will be more helpful for her wound and cellulitis than before. With Jean Paul wrap had to reduce her edema significantly. Sadly her ejection fraction is quite bit low on her echocardiogram this time compared to the last 1 was done few months ago at cardiology and will probably require little bit more aggressive treatment and management for cardiomyopathy. Patient will remain in the hospital through the weekend for better management of her cardiomyopathy along with cellulitis and wound care and debility and prepare hopefully for going either to SNF or inpatient rehab by Tuesday. REVIEW OF SYSTEMS: CONSTITUTIONAL: Well-developed no acute respiratory distress. EYES: No icterus sclerae, no conjunctivitis. EARS, NOSE, MOUTH, THROAT, and FACE: No sore throat, lymphadenopathy, carotid bruits or deformity. RESPIRATORY: Slight shortness of breath no cough or wheezes. CARDIOVASCULAR: Positive PND orthopnea palpitation with rapid pulse. GASTROINTESTINAL: Lack of appetite with nausea no vomiting no diarrhea or constipation. GENITOURINARY: Polyuria and nocturia and mild incontinence. INTEGUMENT/BREAST: Negative for any muscular injury with mild osteoarthritis.. HEMATOLOGIC/LYMPHATIC: Negative for bleed or purpura. MUSCULOSKELTAL: Generalized fatigue and generalized muscle and joint discomfort. Both lower extremity had sore worse on the right than the left side with anasarca swelling and drainage from the left side. NEURLOGICAL: No LOC, Sz or syncope, blurred vision dizziness or abnormality.. BEHAVIORAL/PSYCH: Negative. ENDOCRINE: Negative. PHYSICAL EXAMINATION: General Appearance: Alert, cooperative, no distress, appears stated age. Neck HEENT: Supple, no lymphadenopathy, no thyroid enlargement, no carotid bruits. Lungs: Decreased breath sound bilaterally with fine rhonchi positive mild expiratory wheezes. Chest Wall: Decreased expansion with deep inspiration no tenderness and no deformity was found on exam, no costochondral pain or discomfort. Heart: Irregular rate and rhythm, S1, S2 positive S3 positive systolic murmur. Back: Significant lower back pain and discomfort mild curvature and scoliosis. Abdomen: Soft, non-tender, bowel sounds active all four quadrants, no masses, no organomegaly. Extremities: 2+ edema with anasarca bilaterally there is an open sore on the right leg on the medial aspect with size 2 x 0.5 inch with blue-colored dressing on and still have slightly drainage. Left leg in the lateral side had an open area with laceration of the skin did not require any stitches but the draining serous fluid. Significant puffiness and edema in the feet bilaterally worse on the right and left side with positive pulse. Pulses: 2+ and symmetric. Skin: Skin color, texture, tugor normal, no rashes or lesions. Neurologic: Alert oriented x3 cranial nerves II through XII intact, severe generalized weakness with abnormal balance and gait. ASSESSMENT AND PLAN: _Severe cardiomyopathy with reduced ejection fraction congestive heart failure: EF is 35 to 40% I will only will titrate medication management has been on diuretics currently between furosemide and Aldactone patient eventually might benefit from starting Entresto in place of her JEAN PAUL or ARB. Continue her usual more aggressive management not clear whether she needs any further cardiac testing at this point previously her cardiomyopathy was diagnosed as nonischemic most likely A-fib related. _Right leg wound with topical dressing culture will be done wound care along with infectious disease referral will be done start patient on vancomycin, Aquacel silver dressing change every 48 hours. Continue aggressive wound care management and will require probably daily dressing change beside her IV antibiotics. _Severe cellulitis of the left leg again continue dressing precautions from significant infection on side will continue vancomycin topical dressing. _A-fib with RVR: Continue Cardizem drip along with Eliquis the patientEventually will go back on higher dose of metoprolol if needed and if no response probably amiodarone will be a good choice. _Anasarca: Most likely from hypoalbuminemia along with her cardiomyopathy and heart failure causing her symptoms will continue current management with diur etics Jean Paul wrap and leg elevation also increase protein intake. _Congestive heart failure: Mostly systolic dysfunction and decreased ejection fraction worsening than before we will continue medical management. _Severe debility not able to ambulate and walk will consult hospital social worker and physical therapy titrate activity gradually will help the patient eventually might require need rehab. _Hyponatremia: Improved sodium compared to before continue again diuretics and infection treatment. _Hyperlipidemia: Continue atorvastatin 20 mg a day. _Severe GERD: Remain on pantoprazole. _Bilateral pelvic fracture within last 6 months has been ambulating with a walker still not doing that well again physical therapy will be more helpful. _Anticoagulation: Remain on Eliquis. _GI prophylaxis: Remain on pantoprazole. Discussion: Continue aggressive management, addressed with hospital social worker and physical therapy patient is need to continue to work with family for possible sending patient to SNF rehab around Tuesday for about 2 weeks. Objective - Vital Signs Vital signs: Vital Signs Temp 97.3 F L 12/23/23 09:11 Pulse 65 12/23/23 09:12 Resp 20 12/23/23 09:11 BP 107/75 12/23/23 09:11 Pulse Ox 95 12/23/23 09:11 FiO2 Intake & Output 12/22/23 12/23/23 12/23/23 18:59 06:59 18:59 Intake Total 360 118 Output Total 400 500 Balance -40 -500 118 Weight 66.4 kg Intake: Oral 360 118 Output: Gastric Drainage 0 Urine 400 500 Stool 0 Urine/Stool Mix 0 Emesis 0 Oral Regurgitation 0 Other 0 Other: Voiding Method Toilet Toilet # Voids 0 # Bowel Movements 1 - Labs CBC & Chem 7: 12/23/23 08:00 12/23/23 08:00 Labs: Abnormal Lab Results - Last 24 Hours (Table) 12/23/23 12/23/23 Range/Units 08:00 08:00 Lymphocytes # 0.8 L (1.0-4.8) k/uL Sodium 130 L (137-145) mmol/L Chloride 97 L (98-107) mmol/L BUN 33 H (7-17) mg/dL Glucose 160 H (74-99) mg/dL AST 50 H (14-36) U/L ALT 98 H (4-34) U/L Total Protein 5.7 L (6.3-8.2) g/dL Albumin 3.4 L (3.5-5.0) g/dL Microbiology - Last 24 Hours (Table) 12/22/23 06:27 Gram Stain - Preliminary Leg - Right
[2023-12-23] MEDS: BUMETANIDE 1 MG TAB PO SCH (11:10)
[2023-12-23] MEDS: SPIRONOLACTONE 25 MG TAB PO SCH (11:10)
[2023-12-23] MEDS: AMIODARONE 200 MG TAB PO SCH (11:10)
--- NOTE | 2023-12-23 16:49 | P.PN ---
Subjective Progress Note Date: 12/23/23 Principal diagnosis: Reason for follow-up is right lower extremity wound and concern for cellulitis Patient is a 83-year-old female with a past medical history significa nt for atrial fibrillation heart failure hypertension hyperlipidemia osteoarthritis rheumatoid arthritis patient apparently has been dealing with the wound to the right lower extremity that apparently has been there for couple of weeks now presenting to hospital with worsening swelling to lower extremity and there is concern for possible wound infection and cellulitis prompting his consultation. On today's evaluation that is 12/23/2023,the patient denies any fever or any chills, patient is breathing comfortably on room air, the patient denies chest pain shortness of breath and no significant cough, patient denies abdominal pain, no nausea vomiting or diarrhea. Denies any worsening pain to lower extremity. Patient white count is 8.3, creatinine 0.75 culture now showing E. coli Objective - Vital Signs Vital signs: Vital Signs Temp 97.7 F 12/23/23 15:23 Pulse 63 12/23/23 15:23 Resp 18 12/23/23 15:23 BP 94/62 12/23/23 15:23 Pulse Ox 98 12/23/23 15:23 FiO2 Intake & Output 12/22/23 12/23/23 12/23/23 18:59 06:59 18:59 Intake Total 360 118 Output Total 400 500 700 Balance -40 -500 -582 Weight 66.4 kg Intake: Oral 360 118 Output: Gastric Drainage 0 Urine 400 500 700 Stool 0 Urine/Stool Mix 0 Emesis 0 Oral Regurgitation 0 Other 0 Other: Voiding Method Toilet Toilet # Voids 0 # Bowel Movements 1 - Exam GENERAL DESCRIPTION: An elderly female lying in bed in no distress RESPIRATORY SYSTEM: Unlabored breathing , decreased breath sounds at bases HEART: S1 S2 regular rate and rhythm , ABDOMEN: Soft , no tenderness EXTREMITIES: Diffuse swelling of bilateral lower extremity wound is currently dressed - Labs CBC & Chem 7: 12/23/23 08:00 12/23/23 08:00 Labs: Abnormal Lab Results - Last 24 Hours (Table) 12/23/23 12/23/23 Range/Units 08:00 08:00 Lymphocytes # 0.8 L (1.0-4.8) k/uL Sodium 130 L (137-145) mmol/L Chloride 97 L (98-107) mmol/L BUN 33 H (7-17) mg/dL Glucose 160 H (74-99) mg/dL AST 50 H (14-36) U/L ALT 98 H (4-34) U/L Total Protein 5.7 L (6.3-8.2) g/dL Albumin 3.4 L (3.5-5.0) g/dL Microbiology - Last 24 Hours (Table) 12/22/23 06:27 Gram Stain - Preliminary Leg - Right Wound Culture - Preliminary Escherichia coli Assessment and Plan (1) Cellulitis Current Visit: Yes Status: Acute Code(s): L03.90 - CELLULITIS, UNSPECIFIED SNOMED Code(s): 605227033 (2) Leg wound, right Current Visit: Yes Status: Acute Code(s): S81.801A - UNSPECIFIED OPEN WOUND, RIGHT LOWER LEG, INITIAL ENCOUNTER SNOMED Code(s): 92517517544095959 Plan: 1patient presented to hospital with increasing swelling to bilateral lower extremity in this patient who did have a wound to the right anterior leg for couple of weeks no concern for wound infection and secondary cellulitis likely from gram-positive skin cristy 2-local wound culture has been obtained and currently pending 3- Doppler ultrasound bilateral lower extremity negative we will apply Jean Paul wrap to get some the swelling down 4-patient local culture now growing E. coli we will discontinue vancomycin start the patient on Rocephin pending culture finalization Dictation was produced using [employer] dictation software. please excuse any grammatical, word or spelling errors. Time with Patient: Less than 30
--- NOTE | 2023-12-23 21:40 | P.PN ---
Subjective Progress Note Date: 12/23/23 HISTORY OF PRESENTING ILLNESS Patient is a 82-year-old female known to Dr. Cedillo with past medical history of paroxysmal atrial fibrillation s/p cardioversion x 2, atrial fibrillation ablation x [address] Narvaez with most recent ablation at [facility] in April 2022. She has history of hypertension, dyslipidemia, osteoporosis. Last she was hospitalized in December 10, 2019 for 4-week symptoms and atrial fibrillation RVR. Apparently since April 2022 ablation she has been in sinus rhythm until December 09 admission. This time she is admitted again, this time for increase generalized weakness, open sore in bilateral legs and atrial fibrillation with RVR. Admission labs shows hemoglobin 13.6, BUN 38, creatinine 0.8, troponin x 3 was negative, BNP elevated at 9000. December 23, 2023 Patient is doing better as compared to cardiovascular standpoint, fluid status has improved, heart rate is slightly better controlled. PHYSICAL EXAMINATION Vital signs reviewed. Head: Normocephalic. Eyes: Sclerae nonicteric. Neck: Brisk carotid upstroke, no jugular venous distention. Lungs: Poor inspiratory effort, diminished breath sounds Heart: Irregularly irregular, mild systolic murmur audible Abdomen: Soft nontender, positive bowel sounds. Extremities: 1+ pitting edema bilateral lower extremity with chronic venous nonhealing ulcers, dressing in place, neuro: Alert, oritented, no focal deficits. Detailed neuro exam was not performed. ASSESSMENT Afib RVR prior multiple cardiac ablations with last Apr 2022 at [place], relapsed in November 2023 Mild HFrEF exacerbation, Non ischemic cardiomyopathy EF 35-40% Valvular heart disease with moderate to severe aortic regurgitation, and mild to moderate mitral stenosis Moderate to severe pulm hypertension Cardiac testing Echocardiogram showed EF 35 to 40%, moderate concentric LVH, severe LA dilatation, moderate mitral calcification with moderate stenosis, pulm hypertension with RVSP 32 mmHg, severe aortic regurgitation PLAN Continue Eliquis 5 twice daily Discontinue Lasix and start Bumex 1 mg p.o. daily. Add Aldactone 12.5 mg daily Discontinue lisinopril. Start Entresto 25 to 26 mg half tablet twice daily Continue metoprolol 50 mg twice daily Consider possible outpatient ANABEL to evaluate for valvular heart disease Monitor renal function and hemodynamics. Obtain orthostatic vital signs prior to discharge. Anticipate discharge in next 24 to 48 hours. Objective - Vital Signs Vital signs: Vital Signs Temp 97.7 F 12/23/23 15:23 Pulse 63 12/23/23 15:23 Resp 18 12/23/23 15:23 BP 94/62 12/23/23 15:23 Pulse Ox 98 12/23/23 15:23 FiO2 Intake & Output 12/23/23 12/23/23 12/24/23 06:59 18:59 06:59 Intake Total 236 Output Total 500 700 Balance -500 -464 Weight 66.4 kg Intake: Oral 236 Output: Urine 500 700 Other: Voiding Method Toilet Toilet - Labs CBC & Chem 7: 12/23/23 08:00 12/23/23 08:00 Labs: Abnormal Lab Results - Last 24 Hours (Table) 12/23/23 12/23/23 Range/Units 08:00 08:00 Lymphocytes # 0.8 L (1.0-4.8) k/uL Sodium 130 L (137-145) mmol/L Chloride 97 L (98-107) mmol/L BUN 33 H (7-17) mg/dL Glucose 160 H (74-99) mg/dL AST 50 H (14-36) U/L ALT 98 H (4-34) U/L Total Protein 5.7 L (6.3-8.2) g/dL Albumin 3.4 L (3.5-5.0) g/dL Microbiology - Last 24 Hours (Table) 12/22/23 06:27 Gram Stain - Preliminary Leg - Right Wound Culture - Preliminary Escherichia coli
[2023-12-24] MEDS: traMADol 50 MG TAB PO PRN (09:18)
[2023-12-24] MEDS ORDERED: VANCOMYCIN TROUGH DUE 1 EACH MISC MISCELLANE ONE (12:00)
[2023-12-24] MEDS: polyethylene glycoL 3350 17 GM POWD.PACK PO SCH (12:16)
[2023-12-24] MEDS: SENNOSIDES-DOCUSATE SODIUM 1 EACH TAB PO SCH (12:16)
--- NOTE | 2023-12-24 16:49 | P.PN ---
Subjective Progress Note Date: 12/24/23 Principal diagnosis: Reason for follow-up is right lower extremity wound and concern for cellulitis Patient is a 83-year-old female with a past medical history significa nt for atrial fibrillation heart failure hypertension hyperlipidemia osteoarthritis rheumatoid arthritis patient apparently has been dealing with the wound to the right lower extremity that apparently has been there for couple of weeks now presenting to hospital with worsening swelling to lower extremity and there is concern for possible wound infection and cellulitis prompting his consultation. On today's evaluation that is 12/24/2023,the patient remains to be afebrile, patient is on room air not requiring supplemental oxygen and denies any shortness of breath no chest pain or cough.Patient denies having any nausea or vomiting, no abdominal pain and no diarrhea has been reported, denies any worsening pain Lower extremity wound. No new labs were obtained today local culture with an E. coli that is sensitive to ceftriaxone Objective - Vital Signs Vital signs: Vital Signs Temp 97.7 F 12/24/23 15:24 Pulse 50 L 12/24/23 15:24 Resp 16 12/24/23 15:24 BP 118/79 12/24/23 15:24 Pulse Ox 98 12/24/23 15:24 FiO2 Intake & Output 12/23/23 12/24/23 12/24/23 18:59 06:59 18:59 Intake Total 236 60 10 Output Total 700 200 Balance -464 60 -190 Weight 66.1 kg Intake: IV 20 10 Invasive Line 1 10 Invasive Line 2 10 Invasive Line 3 10 Oral 236 40 Output: Urine 700 200 Other: Voiding Method Toilet Toilet Toilet # Voids 1 1 - Exam GENERAL DESCRIPTION: An elderly female lying in bed in no distress RESPIRATORY SYSTEM: Unlabored breathing , decreased breath sounds at bases HEART: S1 S2 regular rate and rhythm , ABDOMEN: Soft , no tenderness EXTREMITIES: Diffuse swelling of bilateral lower extremity wound is currently dressed - Labs CBC & Chem 7: 12/23/23 08:00 12/23/23 08:00 Labs: Microbiology - Last 24 Hours (Table) 12/22/23 06:27 Anaerobic Culture - Preliminary Leg - Right 12/22/23 06:27 Gram Stain - Final Leg - Right Wound Culture - Final Escherichia coli Assessment and Plan (1) Cellulitis Current Visit: Yes Status: Acute Code(s): L03.90 - CELLULITIS, UNSPECIFIED SNOMED Code(s): 237547189 (2) Leg wound, right Current Visit: Yes Status: Acute Code(s): S81.801A - UNSPECIFIED OPEN WOUND, RIGHT LOWER LEG, INITIAL ENCOUNTER SNOMED Code(s): 74720240531588912 Plan: 1patient presented to hospital with increasing swelling to bilateral lower extremity in this patient who did have a wound to the right anterior leg for couple of weeks no concern for wound infection and secondary cellulitis likely from gram-positive skin cristy 2-local wound culture has been obtained and currently pending 3- Doppler ultrasound bilateral lower extremity negative we will apply Jean Paul wrap to get some the swelling down 4-patient local culture now growing E. coli that is sensitive to ceftriaxone to continue Family the bedside questions answered Dictation was produced using [employer] dictation software. please excuse any grammatical, word or spelling errors. Time with Patient: Less than 30
--- NOTE | 2023-12-24 19:00 | P.PN ---
Subjective Progress Note Date: 12/24/23 HISTORY OF PRESENTING ILLNESS Patient is a 82-year-old female known to Dr. Cedillo with past medical history of paroxysmal atrial fibrillation s/p cardioversion x 2, atrial fibrillation ablation x [address] Narvaez with most recent ablation at [facility] in April 2022. She has history of hypertension, dyslipidemia, osteoporosis. Last she was hospitalized in December 10, 2019 for 4-week symptoms and atrial fibrillation RVR. Apparently since April 2022 ablation she has been in sinus rhythm until December 09 admission. This time she is admitted again, this time for increase generalized weakness, open sore in bilateral legs and atrial fibrillation with RVR. Admission labs shows hemoglobin 13.6, BUN 38, creatinine 0.8, troponin x 3 was negative, BNP elevated at 9000. December 23, 2023 Patient is doing better as compared to cardiovascular standpoint, fluid status has improved, heart rate is slightly better controlled. December 24, 2023 Seen and examined at bedside this a.m. Heart rates are better controlled. Fluid status has improved, no lower extremity swelling noticed. PHYSICAL EXAMINATION Vital signs reviewed. Head: Normocephalic. Eyes: Sclerae nonicteric. Neck: Brisk carotid upstroke, no jugular venous distention. Lungs: Poor inspiratory effort, diminished breath sounds Heart: Irregularly irregular, mild systolic murmur audible Abdomen: Soft nontender, positive bowel sounds. Extremities: no edema bilateral lower extremity with chronic venous nonhealing ulcers, dressing in place, neuro: Alert, oritented, no focal deficits. Detailed neuro exam was not performed. ASSESSMENT Afib RVR prior multiple cardiac ablations with last Apr 2022 at [place], relapsed in November 2023 Mild HFrEF exacerbation, Non ischemic cardiomyopathy EF 35-40% Valvular heart disease with moderate to severe aortic regurgitation, and mild to moderate mitral stenosis Moderate to severe pulm hypertension Cardiac testing Echocardiogram showed EF 35 to 40%, moderate concentric LVH, severe LA dil atation, moderate mitral calcification with moderate stenosis, pulm hypertension with RVSP 32 mmHg, severe aortic regurgitation PLAN Continue Eliquis 5 twice daily Discontinue Lasix and start Bumex 1 mg p.o. daily. Add Aldactone 12.5 mg daily Discontinue lisinopril. Start Entresto 25 to 26 mg half tablet twice daily Continue metoprolol 50 mg twice daily Consider possible outpatient ANABEL to evaluate for valvular heart disease Monitor renal function and hemodynamics. Obtain orthostatic vital signs prior to discharge. Patient is cleared from cardiovascular standpoint. Cardiology team will sign off Objective - Vital Signs Vital signs: Vital Signs Temp 97.7 F 12/24/23 15:24 Pulse 50 L 12/24/23 15:24 Resp 16 12/24/23 15:24 BP 118/79 12/24/23 15:24 Pulse Ox 98 12/24/23 15:24 FiO2 Intake & Output 12/23/23 12/24/23 12/24/23 18:59 06:59 18:59 Intake Total 236 60 110 Output Total 700 200 Balance -464 60 -90 Weight 66.1 kg Intake: IV 20 10 Invasive Line 1 10 Invasive Line 2 10 Invasive Line 3 10 Oral 236 40 100 Output: Urine 700 200 Other: Voiding Method Toilet Toilet Toilet # Voids 1 1 - Labs CBC & Chem 7: 12/23/23 08:00 12/23/23 08:00 Labs: Microbiology - Last 24 Hours (Table) 12/22/23 06:27 Anaerobic Culture - Preliminary Leg - Right 12/22/23 06:27 Gram Stain - Final Leg - Right Wound Culture - Final Escherichia coli
[2023-12-24] MEDS: ONDANSETRON 4 MG/2 ML VIAL IVP PRN (20:15)
[2023-12-24] MEDS: SACUBITRIL/VALSARTAN 24 MG-26 MG TABLET PO SCH (20:50)
[2023-12-25 07:55] LABS: ALT 69 U/L (4-34); AST 31 U/L (14-36); African American GFR (CKD) 84 (>60 ml/min/1.73 sqM); Albumin 3.2 g/dL (3.5-5.0); Alkaline Phosphatase 68 U/L (38-126); Anion Gap 4 mmol/L; Blood Urea Nitrogen 24 mg/dL (7-17); Calcium 8.4 mg/dL (8.4-10.2); Carbon Dioxide 31 mmol/L (22-30); Chloride 94 mmol/L (98-107); Glucose 111 mg/dL (74-99); Non-African American GFR(CKD) 73 (>60 ml/min/1.73 sqM); Potassium 3.7 mmol/L (3.5-5.1); Sodium 129 mmol/L (137-145); Total Bilirubin 0.8 mg/dL (0.2-1.3); Total Protein 5.3 g/dL (6.3-8.2)
[2023-12-25 08:00] LABS: HGB 13.3 gm/dL (11.4-16.0); Hypochromasia Slight; MCHC 33.4 g/dL (31.0-37.0); MCV 95.8 fL (80.0-100.0); Mean Platelet Volume 7.4; Platelet Count 219 k/uL (150-450); RBC 4.18 m/uL (3.80-5.40); RDW 14.8 % (11.5-15.5); WBC 6.9 k/uL (3.8-10.6)
--- NOTE | 2023-12-25 15:24 | P.PN ---
Subjective Progress Note Date: 12/25/23 Principal diagnosis: Reason for follow-up is right lower extremity wound and concern for cellulitis Patient is a 83-year-old female with a past medical history significa nt for atrial fibrillation heart failure hypertension hyperlipidemia osteoarthritis rheumatoid arthritis patient apparently has been dealing with the wound to the right lower extremity that apparently has been there for couple of weeks now presenting to hospital with worsening swelling to lower extremity and there is concern for possible wound infection and cellulitis prompting his consultation. On today's evaluation that is 12/25/2023, the patient continues to be afebrile, the patient is on room air and breathing comfortably, the Pt denies having any chest pain or cough, the patient denies having any abdominal pain no vomiting or any diarrhea mention pain and swelling to the lower extremity has decreased intensity feeling better wants to go home. Patient white count 6.8, creatinine 0.76 Objective - Vital Signs Vital signs: Vital Signs Temp 97.7 F 12/25/23 11:06 Pulse 70 12/25/23 11:06 Resp 17 12/25/23 11:06 BP 96/67 12/25/23 11:06 Pulse Ox 92 L 12/25/23 11:06 FiO2 Intake & Output 12/24/23 12/25/23 12/25/23 18:59 06:59 18:59 Intake Total 110 10 236 Output Total 200 250 Balance -90 10 -14 Weight 67.4 kg Intake: IV 10 10 Invasive Line 3 10 10 Oral 100 236 Output: Urine 200 250 Other: Voiding Method Toilet Toilet Toilet # Voids 1 1 1 - Exam GENERAL DESCRIPTION: An elderly female lying in bed in no distress RESPIRATORY SYSTEM: Unlabored breathing , decreased breath sounds at bases HEART: S1 S2 regular rate and rhythm , ABDOMEN: Soft , no tenderness EXTREMITIES: Diffuse swelling of bilateral lower extremity wound is currently dressed - Labs CBC & Chem 7: 12/25/23 07:00 12/25/23 07:00 Labs: Abnormal Lab Results - Last 24 Hours (Table) 12/25/23 Range/Units 07:00 Sodium 129 L (137-145) mmol/L Chloride 94 L (98-107) mmol/L Carbon Dioxide 31 H (22-30) mmol/L BUN 24 H (7-17) mg/dL Glucose 111 H (74-99) mg/dL ALT 69 H (4-34) U/L Total Protein 5.3 L (6.3-8.2) g/dL Albumin 3.2 L (3.5-5.0) g/dL Microbiology - Last 24 Hours (Table) 12/22/23 06:27 Anaerobic Culture - Preliminary Leg - Right Assessment and Plan (1) Cellulitis Current Visit: Yes Status: Acute Code(s): L03.90 - CELLULITIS, UNSPECIFIED SNOMED Code(s): 307730467 (2) Leg wound, right Current Visit: Yes Status: Acute Code(s): S81.801A - UNSPECIFIED OPEN WOUND, RIGHT LOWER LEG, INITIAL ENCOUNTER SNOMED Code(s): 30498689080361635 Plan: 1patient presented to hospital with increasing swelling to bilateral lower extremity in this patient who did have a wound to the right anterior leg for couple of weeks no concern for wound infection and secondary cellulitis likely from gram-positive skin cristy 2-local wound culture has been obtained and currently pending 3- Doppler ultrasound bilateral lower extremity negative we will apply Jean Paul wrap to get some the swelling down 4-patient local culture now growing E. coli that is sensitive to ceftriaxone, patient to continue with the ceftriaxone while inpatient finishing therapy with the 10-day course of oral Ceftin Dictation was produced using [employer] dictation software. please excuse any grammatical, word or spelling errors. Time with Patient: Less than 30
--- NOTE | 2023-12-25 16:47 | P.PN ---
Subjective Progress Note Date: 12/24/23 HISTORY OF PRESENT ILLNESS: 83-year-old with active medical history of atherosclerotic heart disease, A-fib, congestive heart failure, hypertension, hyperlipidemia, chronic anasarca and edema, history of chronic arthritis, previous history of tamponade required pericardial window, osteoporosis, recurrent diverticulitis, who had to pelvic fracture the last year from 2 different fall, she fell 4 weeks ago and traumatized her right leg and chin area which has an open sore sized 2X.5 an inch with local dressing via visiting nurse since. He developed anasarca and side require more diuretics which already created significant problem with acute kidney injury had to back off to some degree when patient had to continue on furosemide 40 mg twice a day along with spironolactone to keep the swelling down. She become debilitated last few weeks not been able to ambulate and walk require at least 1 person assistant strength coach on a regular basis to move her out of bed to the bathroom and back. She has much worsening symptoms with severe generalized weakness fatigue low-grade temperature and not been able to pull herself out of bed. With worsening symptoms today along with more open sore and draining both legs worsening of the left side on the right side ended up coming to the emergency department via EMS where was seen and evaluated surprisingly at the time of her arrival found to have pulse of 100-1 30 with A-fib with RVR blood pressure was soft on the low side running 90-1 10. Patient extremely weak not able to pull herself her laboratory value showed hyponatremia with prerenal acute kidney injury with bun of 46 creatinine 0.86 with GFR 63, slightly abnormal liver function test with probably worsening congestion from her heart function and anasarca. Troponin was negative with proBNP was 9640. Back and leg has still an open sore on the right side with the left side had small ulceration of the skin had a creatinine significant to drainage with much worsening local cellulitis. She was started on Cardizem drip to cover her A-fib with RVR and eventually had to titrate dose up to 7.5 and 10 mg to give her pulse below 100 started on Vancomycin and consult infectious disease will admit patient to the hospital for inpatient treatment management will require further wound care as well. 12/22/2023: Patient continued to have severe debility not able to ambulate and walk, her A-fib with RVR has been slightly better with up to Cardizem 7.5 mg drip switch medication to titrate her oral medication pending of cardiology consult this morning. Also patient be seen in the wound clinic in the meanwhile infectious disease change the plan currently to have her do Doppler of the lower extremity along with Jean Paul wrap to lower the swelling and anasarca and help her out and will continue vancomycin IV for her current infection pending culture. Physically patient is still quite debilitated require more than 1 person assistant strength coach with physical therapy which will be titrated higher or more and talking to her and her working eventually patient will require either inpatient rehab or SNF for probably 2 weeks to take care of her wound care, possible IV antibiotics and physical therapy altogether. 12/23/2023: Long discussion with Pat today about the longer-term plan she is still pushing for her to be discharged home which is not possible currently she requires more than 1 person assistant strength coach, still been treated for cardiomyopathy and A-fib and still treated for debility with her current medical condition will continue IV antibiotics for better management of her wound care as well. Patient required little bit longer wound care management on daily basis and the plan probably with IV antibiotic will be more helpful for her wound and cellulitis than before. With Jean Paul wrap had to reduce her edema significantly. Sadly her ejection fraction is quite bit low on her echocardiogram this time compared to the last 1 was done few months ago at cardiology and will probably require little bit more aggressive treatment and management for cardiomyopathy. Patient will remain in the hospital through the weekend for better management of her cardiomyopathy along with cellulitis and wound care and debility and prepare hopefully for going either to SNF or inpatient rehab by Tuesday. 12/24/2023: She is resting comfortably and not happy about the diagnosis, the swelling and edema is coming down specially with Jean Paul wrap leg elevation along with aggressive management of her Bumex compared to Lasix patient was switched to Entresto by cardiology for the management of cardiomyopathy remain in A-fib pulse rates under better control currently with Lopressor 50 mg twice a day along with amiodarone 400 mg twice a day as a loading dose will titrate dose higher. The patient had 2 ablation therapy in the past apparently this is despite ablation therapy with A-fib and a cardiomyopathy is all connected no sign of ischemic change. Her leg and wound care is getting slightly bit better especially with significant decrease of edema. Patient and family were informed about the diagnosis always going on with her ejection fraction to her echo the ca rdiomyopathy the valvular heart disease and the treatment for A-fib with RVR. Initial decision was to titrate physical therapy would help the patient will require probably to go to either assisted living or SNF for wound care along with management till she gain her independency specially when she is feeling better. Has been having slight increase lower leg pain lately agreeable to be on tramadol up to 4 times a day on as-needed basis which seems to help some. REVIEW OF SYSTEMS: CONSTITUTIONAL: Well-developed no acute respiratory distress. EYES: No icterus sclerae, no conjunctivitis. EARS, NOSE, MOUTH, THROAT, and FACE: No sore throat, lymphadenopathy, carotid bruits or deformity. RESPIRATORY: Slight shortness of breath no cough or wheezes. CARDIOVASCULAR: Positive PND orthopnea palpitation with rapid pulse. GASTROINTESTINAL: Lack of appetite with nausea no vomiting no diarrhea or constipation. GENITOURINARY: Polyuria and nocturia and mild incontinence. INTEGUMENT/BREAST: Negative for any muscular injury with mild osteoarthritis.. HEMATOLOGIC/LYMPHATIC: Negative for bleed or purpura. MUSCULOSKELTAL: Generalized fatigue and generalized muscle and joint discomfort. Both lower extremity had sore worse on the right than the left side with kartik sarca swelling and drainage from the left side. NEURLOGICAL: No LOC, Sz or syncope, blurred vision dizziness or abnormality.. BEHAVIORAL/PSYCH: Negative. ENDOCRINE: Negative. PHYSICAL EXAMINATION: General Appearance: Alert, cooperative, no distress, appears stated age. Neck HEENT: Supple, no lymphadenopathy, no thyroid enlargement, no carotid bruits. Lungs: Decreased breath sound bilaterally with fine rhonchi positive mild expiratory wheezes. Chest Wall: Decreased expansion with deep inspiration no tenderness and no deformity was found on exam, no costochondral pain or discomfort. Heart: Irregular rate and rhythm, S1, S2 positive S3 positive systolic murmur. Back: Significant lower back pain and discomfort mild curvature and scoliosis. Abdomen: Soft, non-tender, bowel sounds active all four quadrants, no masses, no organomegaly. Extremities: 2+ edema with anasarca bilaterally there is an open sore on the right leg on the medial aspect with size 2 x 0.5 inch with blue-colored dressing on and still have slightly drainage. Left leg in the lateral side had an open area with laceration of the skin did not require any stitches but the draining serous fluid. Significant puffiness and edema in the feet bilaterally worse on the right and left side with positive pulse. Pulses: 2+ and symmetric. Skin: Skin color, texture, tugor normal, no rashes or lesions. Neurologic: Alert oriented x3 cranial nerves II through XII intact, severe generalized weakness with abnormal balance and gait. ASSESSMENT AND PLAN: _Severe cardiomyopathy with reduced ejection fraction congestive heart failure: With ejection fraction of 35-40 percentile with significantly decreased compared to before, medical management was initiated and titrated she is on Entresto along with Bumex metoprolol and spironolactone and cardiology still following patient daily. _Valvular heart disease: With severe aortic regurgitation along with mitral regurgitation remain on medical management currently at some point she might require intervention. _Right leg wound with topical dressing culture E. coli infectious disease had switch her antibiotic management to Rocephin 2 g daily which patient probably will be on oral component to help E. coli. _Severe cellulitis of the left leg again continue dressing along with Rocephin to treat E. coli. _A-fib with RVR: She was switched to amiodarone 400 mg twice a day off Cardizem drip remain on metoprolol and currently watching her pulse rate to keep it below 100. _Anasarca: Most likely from hypoalbuminemia along with her cardiomyopathy and heart failure continue higher albumin intake patient was started on Bumex we will titrate dose higher continue Jean Paul wrap as well. _Congestive heart failure: Mostly systolic dysfunction and decreased ejection fraction worsening than before we will continue medical management. With addition of Bumex along with Entresto and spironolactone hopefully will help. _Severe debility not able to ambulate and walk will consult social services manager and physical therapy titrate activity gradually will help the patient eventually might require need rehab. _Hyponatremia: Improved sodium compared to before continue again diuretics and infection treatment. _Hyperlipidemia: Continue atorvastatin 20 mg a day. _Severe GERD: Remain on pantoprazole. _Bilateral pelvic fracture within last 6 months has been ambulating with a walker still not doing that well again physical therapy will be more helpful. _Anticoagulation: Remain on Eliquis. _GI prophylaxis: Remain on pantoprazole. Discussion: Full informative as result of her testing and management cardiology during along with infectious disease and full result of continue aggressive m felixment, patient will require SNF or rehab for physical therapy, mobility and balance also will need rehab for her wound care and infection whether she needed antibiotics IV or oral to be decided by infectious disease. Objective - Vital Signs Vital signs: Vital Signs Temp 97.6 F 12/24/23 08:04 Pulse 60 12/24/23 08:04 Resp 16 12/24/23 08:04 BP 108/77 12/24/23 08:04 Pulse Ox 96 12/24/23 08:04 FiO2 Intake & Output 12/23/23 12/24/23 12/24/23 18:59 06:59 18:59 Intake Total 236 60 Output Total 700 200 Balance -464 60 -200 Weight 66.1 kg Intake: IV 20 Invasive Line 1 10 Invasive Line 2 10 Oral 236 40 Output: Urine 700 200 Other: Voiding Method Toilet Toilet Toilet # Voids 1 - Labs CBC & Chem 7: 12/25/23 07:00 12/25/23 07:00 Labs: Microbiology - Last 24 Hours (Table) 12/22/23 06:27 Gram Stain - Final Leg - Right Wound Culture - Final Escherichia coli
--- NOTE | 2023-12-25 16:54 | P.PN ---
Subjective Progress Note Date: 12/25/23 HISTORY OF PRESENT ILLNESS: 83-year-old with active medical history of atherosclerotic heart disease, A-fib, congestive heart failure, hypertension, hyperlipidemia, chronic anasarca and edema, history of chronic arthritis, previous history of tamponade required pericardial window, osteoporosis, recurrent diverticulitis, who had to pelvic fracture the last year from 2 different fall, she fell 4 weeks ago and traumatized her right leg and chin area which has an open sore sized 2X.5 an inch with local dressing via visiting nurse since. He developed anasarca and side require more diuretics which already created significant problem with acute kidney injury had to back off to some degree when patient had to continue on furosemide 40 mg twice a day along with spironolactone to keep the swelling down. She become debilitated last few weeks not been able to ambulate and walk require at least 1 person equal opportunity assistant on a regular basis to move her out of bed to the bathroom and back. She has much worsening symptoms with severe generalized weakness fatigue low-grade temperature and not been able to pull herself out of bed. With worsening symptoms today along with more open sore and draining both legs worsening of the left side on the right side ended up coming to the emergency department via EMS where was seen and evaluated surprisingly at the time of her arrival found to have pulse of 100-1 30 with A-fib with RVR blood pressure was soft on the low side running 90-1 10. Patient extremely weak not able to pull herself her laboratory value showed hyponatremia with prerenal acute kidney injury with bun of 46 creatinine 0.86 with GFR 63, slightly abnormal liver function test with probably worsening congestion from her heart function and anasarca. Troponin was negative with proBNP was 9640. Back and leg has still an open sore on the right side with the left side had small ulceration of the skin had a creatinine significant to drainage with much worsening local cellulitis. She was started on Cardizem drip to cover her A-fib with RVR and eventually had to titrate dose up to 7.5 and 10 mg to give her pulse below 100 started on Vancomycin and consult infectious disease will admit patient to the hospital for inpatient treatment management will require further wound care as well. 12/22/2023: Patient continued to have severe debility not able to ambulate and walk, her A-fib with RVR has been slightly better with up to Cardizem 7.5 mg drip switch medication to titrate her oral medication pending of cardiology consult this morning. Also patient be seen in the wound clinic in the meanwhile infectious disease change the plan currently to have her do Doppler of the lower extremity along with Jean Paul wrap to lower the swelling and anasarca and help her out and will continue vancomycin IV for her current infection pending culture. Physically patient is still quite debilitated require more than 1 person equal opportunity assistant with physical therapy which will be titrated higher or more and talking to her and her working eventually patient will require either inpatient rehab or SNF for probably 2 weeks to take care of her wound care, possible IV antibiotics and physical therapy altogether. 12/23/2023: Long discussion with Pat today about the longer-term plan she is still pushing for her to be discharged home which is not possible currently she requires more than 1 person equal opportunity assistant, still been treated for cardiomyopathy and A-fib and still treated for debility with her current medical condition will continue IV antibiotics for better management of her wound care as well. Patient required little bit longer wound care management on daily basis and the plan probably with IV antibiotic will be more helpful for her wound and cellulitis than before. With Jean Paul wrap had to reduce her edema significantly. Sadly her ejection fraction is quite bit low on her echocardiogram this time compared to the last 1 was done few months ago at cardiology and will probably require little bit more aggressive treatment and management for cardiomyopathy. Patient will remain in the hospital through the weekend for better management of her cardiomyopathy along with cellulitis and wound care and debility and prepare hopefully for going either to SNF or inpatient rehab by Tuesday. 12/24/2023: She is resting comfortably and not happy about the diagnosis, the swelling and edema is coming down specially with Jean Paul wrap leg elevation along with aggressive management of her Bumex compared to Lasix patient was switched to Entresto by cardiology for the management of cardiomyopathy remain in A-fib pulse rates under better control currently with Lopressor 50 mg twice a day along with amiodarone 400 mg twice a day as a loading dose will titrate dose higher. The patient had 2 ablation therapy in the past apparently this is despite ablation therapy with A-fib and a cardiomyopathy is all connected no sign of ischemic change. Her leg and wound care is getting slightly bit better especially with significant decrease of edema. Patient and family were informed about the diagnosis always going on with her ejection fraction to her echo the ca rdiomyopathy the valvular heart disease and the treatment for A-fib with RVR. Initial decision was to titrate physical therapy would help the patient will require probably to go to either assisted living or SNF for wound care along with management till she gain her independency specially when she is feeling better. Has been having slight increase lower leg pain lately agreeable to be on tramadol up to 4 times a day on as-needed basis which seems to help some. 12/25/2023: I walk in to see patient today obviously after seen infectious disease early she was accompanied with her daughter at the time apparently the talk was about no aggressive management that patient thinking about comfort care at end-of-life no aggressive management requested to change her CODE STATUS DO NOT RESUSCITATE does not want to go to rehab or any placement therapy but wants to go home and hire help and might consider the idea of comfort care and hospice. The walk-in and engage in the conversation apparently even he is against this idea. And her daughter are on agreement for comfort care and end-of-life when the was not agreeable to it, advised them to have a family meeting to make all of them are aware of her diagnosis prognosis and what ever decided to do we can always have hospice see her for consultation and if they decide on the plan to carry on otherwise continue wound care antibiotic management and advanced treatment for cardiomyopathy till she decide to withdrawal treatment at some point. REVIEW OF SYSTEMS: CONSTITUTIONAL: Well-developed no acute respiratory distress. EYES: No icterus sclerae, no conjunctivitis. EARS, NOSE, MOUTH, THROAT, and FACE: No sore throat, lymphadenopathy, carotid bruits or deformity. RESPIRATORY: Slight shortness of breath no cough or wheezes. CARDIOVASCULAR: Positive PND orthopnea palpitation with rapid pulse. GASTROINTESTINAL: Lack of appetite with nausea no vomiting no diarrhea or constipation. GENITOURINARY: Polyuria and nocturia and mild incontinence. INTEGUMENT/BREAST: Negative for any muscular injury with mild osteoarthritis.. HEMATOLOGIC/LYMPHATIC: Negative for bleed or purpura. MUSCULOSKELTAL: Generalized fatigue and generalized muscle and joint discomfort. Both lower extremity had sore worse on the right than the left side with anasarca swelling and drainage from the left side. NEURLOGICAL: No LOC, Sz or syncope, blurred vision dizziness or abnormality.. BEHAVIORAL/PSYCH: Negative. ENDOCRINE: Negative. PHYSICAL EXAMINATION: General Appearance: Alert, cooperative, no distress, appears stated age. Neck HEENT: Supple, no lymphadenopathy, no thyroid enlargement, no carotid bruits. Lungs: Decreased breath sound bilaterally with fine rhonchi positive mild expiratory wheezes. Chest Wall: Decreased expansion with deep inspiration no tenderness and no deformity was found on exam, no costochondral pain or discomfort. Heart: Irregular rate and rhythm, S1, S2 positive S3 positive systolic murmur. Back: Significant lower back pain and discomfort mild curvature and scoliosis. Abdomen: Soft, non-tender, bowel sounds active all four quadrants, no masses, no organomegaly. Extremities: 2+ edema with anasarca bilaterally there is an open sore on the right leg on the medial aspect with size 2 x 0.5 inch with blue-colored dressing on and still have slightly drainage. Left leg in the lateral side had an open area with laceration of the skin did not require any stitches but the draining serous fluid. Significant puffiness and edema in the feet bilaterally worse on the right and left side with positive pulse. Pulses: 2+ and symmetric. Skin: Skin color, texture, tugor normal, no rashes or lesions. Neurologic: Alert oriented x3 cranial nerves II through XII intact, severe generalized weakness with abnormal balance and gait. ASSESSMENT AND PLAN: _Severe cardiomyopathy with reduced ejection fraction congestive heart failure: With ejection fraction of 35-40 percentile with significantly decreased compared to before, medical management was initiated and titrated she is on Entresto along with Bumex metoprolol and spironolactone and cardiology still following patient daily. When patient decided to do comfort care sadly his withdrawal medication mortality will increase in the next few weeks significantly. _A-fib with RVR: She was switched to amiodarone 400 mg twice a day off Cardizem drip remain on metoprolol and currently watching her pulse rate to keep it below 100. And even having to stop amiodarone and anticoagulation might create major disaster with increased mortality in the next few days. _Anasarca: Most likely from hypoalbuminemia along with her cardiomyopathy and heart failure continue higher albumin intake patient was started on Bumex we will titrate dose higher continue Jean Paul wrap as well. _Valvular heart disease: With severe aortic regurgitation along with mitral regurgitation remain on medical management currently at some point she might require intervention. _Right leg wound with topical dressing culture E. coli infectious disease had switch her antibiotic management to Rocephin 2 g daily which patient probably will be on oral component to help E. coli. _Severe cellulitis of the left leg again continue dressing along with Rocephin to treat E. coli. _Congestive heart failure: Mostly systolic dysfunction and decreased ejection fraction worsening than before we will continue medical management. With addition of Bumex along with Entresto and spironolactone hopefully will help. _Severe debility not able to ambulate and walk will consult hospice social worker and physical therapy titrate activity gradually will help the patient eventually might require need rehab. _Hyponatremia: Improved sodium compared to before continue again diuretics and infection treatment. _Hyperlipidemia: Continue atorvastatin 20 mg a day. _Severe GERD: Remain on pantoprazole. _Bilateral pelvic fracture within last 6 months has been ambulating with a walker still not doing that well again physical therapy will be more helpful. _Anticoagulation: Remain on Eliquis. _GI prophylaxis: Remain on pantoprazole. Discussion: Patient and family are arguing at this point about change her CODE STATUS DO NOT RESUSCITATE and she was to engage in the talk about comfort care and end-of-life with possible hospice. More information was given to them and for them to meet as a family and decide on it and if they are final decision is to carry on with the plan will consult to hospice tomorrow for information initially before deciding whether to do hospice whether this can be done in the hospital, at home or in the hospice house. Objective - Vital Signs Vital signs: Vital Signs Temp 97.5 F L 12/25/23 15:23 Pulse 123 H 12/25/23 15:23 Resp 17 12/25/23 15:23 BP 103/74 12/25/23 15:23 Pulse Ox 97 12/25/23 15:23 FiO2 Intake & Output 12/24/23 12/25/23 12/25/23 18:59 06:59 18:59 Intake Total 110 10 236 Output Total 200 250 Balance -90 10 -14 Weight 67.4 kg Intake: IV 10 10 Invasive Line 3 10 10 Oral 100 236 Output: Urine 200 250 Other: Voiding Method Toilet Toilet Toilet # Voids 1 1 1 - Labs CBC & Chem 7: 12/25/23 07:00 12/25/23 07:00 Labs: Abnormal Lab Results - Last 24 Hours (Table) 12/25/23 Range/Units 07:00 Sodium 129 L (137-145) mmol/L Chloride 94 L (98-107) mmol/L Carbon Dioxide 31 H (22-30) mmol/L BUN 24 H (7-17) mg/dL Glucose 111 H (74-99) mg/dL ALT 69 H (4-34) U/L Total Protein 5.3 L (6.3-8.2) g/dL Albumin 3.2 L (3.5-5.0) g/dL Microbiology - Last 24 Hours (Table) 12/22/23 06:27 Anaerobic Culture - Preliminary Leg - Right
--- NOTE | 2023-12-25 18:05 | P.PN ---
Subjective Progress Note Date: 12/25/23 HISTORY OF PRESENTING ILLNESS Patient is a 82-year-old female known to Dr. Cedillo with past medical history of paroxysmal atrial fibrillation s/p cardioversion x 2, atrial fibrillation ablation x [address] Narvaez with most recent ablation at [facility] in April 2022. She has history of hypertension, dyslipidemia, osteoporosis. Last she was hospitalized in December 10, 2019 for 4-week symptoms and atrial fibrillation RVR. Apparently since April 2022 ablation she has been in sinus rhythm until December 09 admission. This time she is admitted again, this time for increase generalized weakness, open sore in bilateral legs and atrial fibrillation with RVR. Admission labs shows hemoglobin 13.6, BUN 38, creatinine 0.8, troponin x 3 was negative, BNP elevated at 9000. December 23, 2023 Patient is doing better as compared to cardiovascular standpoint, fluid status has improved, heart rate is slightly better controlled. December 24, 2023 Seen and examined at bedside this a.m. Heart rates are better controlled. Fluid status has improved, no lower extremity swelling noticed. Dec 25 2023 rate controlled afib, fluid status improved PHYSICAL EXAMINATION Vital signs reviewed. Head: Normocephalic. Eyes: Sclerae nonicteric. Neck: Brisk carotid upstroke, no jugular venous distention. Lungs: Poor inspiratory effort, diminished breath sounds Heart: Irregularly irregular, mild systolic murmur audible Abdomen: Soft nontender, positive bowel sounds. Extremities: no edema bilateral lower extremity with chronic venous nonhealing ulcers, dressing in place, neuro: Alert, oritented, no focal deficits. Detailed neuro exam was not performed. ASSESSMENT Afib RVR prior multiple cardiac ablations with last Apr 2022 at [facility], relapsed in November 2023 Mild HFrEF exacerbation, Non ischemic cardiomyopathy EF 35-40% Valvular heart disease with moderate to severe aortic regurgitation, and mild to moderate mitral stenosis Moderate to severe pulm hypertension Cardiac testing Echocardiogram showed EF 35 to 40%, moderate concentric LVH, severe LA dilatation, moderate mitral calcification with moderate stenosis, pulm hypertension with RVSP 32 mmHg, severe aortic regurgitation PLAN Continue Eliquis 5 twice daily Discontinue Lasix and start Bumex 1 mg p.o. daily. Add Aldactone 12.5 mg daily Discontinue lisinopril. Start Entresto 25 to 26 mg half tablet twice daily Continue metoprolol 50 mg twice daily Consider possible outpatient ANABEL to evaluate for valvular heart disease Monitor renal function and hemodynamics. Obtain orthostatic vital signs prior to discharge. Patient is cleared from cardiovascular standpoint. 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 Objective - Vital Signs Vital signs: Vital Signs Temp 97.5 F L 12/25/23 15:23 Pulse 123 H 12/25/23 15:23 Resp 17 12/25/23 15:23 BP 103/74 12/25/23 15:23 Pulse Ox 97 12/25/23 15:23 FiO2 Intake & Output 12/24/23 12/25/23 12/25/23 18:59 06:59 18:59 Intake Total 110 10 354 Output Total 200 250 Balance -90 10 104 Weight 67.4 kg Intake: IV 10 10 Invasive Line 3 10 10 Oral 100 354 Output: Urine 200 250 Other: Voiding Method Toilet Toilet Toilet # Voids 1 1 4 - Labs CBC & Chem 7: 12/25/23 07:00 12/25/23 07:00 Labs: Abnormal Lab Results - Last 24 Hours (Table) 12/25/23 Range/Units 07:00 Sodium 129 L (137-145) mmol/L Chloride 94 L (98-107) mmol/L Carbon Dioxide 31 H (22-30) mmol/L BUN 24 H (7-17) mg/dL Glucose 111 H (74-99) mg/dL ALT 69 H (4-34) U/L Total Protein 5.3 L (6.3-8.2) g/dL Albumin 3.2 L (3.5-5.0) g/dL
[2023-12-25] MEDS: ZOLPIDEM 5 MG TAB PO PRN (22:48)
[2023-12-26 05:20] VITALS: BP 122/73; PULSE 86; RESP 15; TEMP 97.7
[2024-01-04] MEDS ORDERED: IBANDRONATE SODIUM 150 MG PO SCH (07:00)
== END 2023-12-27 18:02 | disposition home or self-care (01) | DRG 602 ==
LOC: EC 11:18 → 3SCARD 13:25
PROVIDERS: ADMIT Internal Medicine Geriatric Medicine; ATTEND Internal Medicine Geriatric Medicine
DX: L03.116 Cellulitis of left lower limb (principal); I50.23 Acute on chronic systolic (congestive) heart failure; E87.1 Hypo-osmolality and hyponatremia; L97.811 Non-pressure chronic ulcer of other part of right lower leg limited to breakdown of skin; L97.822 Non-pressure chronic ulcer of other part of left lower leg with fat layer exposed; N17.9 Acute kidney failure, unspecified; I42.8 Other cardiomyopathies; I48.0 Paroxysmal atrial fibrillation; L03.115 Cellulitis of right lower limb; I25.10 Atherosclerotic heart disease of native coronary artery without angina pectoris; I11.0 Hypertensive heart disease with heart failure; Z51.5 Encounter for palliative care; Z66 Do not resuscitate; B96.20 Unspecified Escherichia coli [E. coli] as the cause of diseases classified elsewhere; M81.0 Age-related osteoporosis without current pathological fracture; I27.20 Pulmonary hypertension, unspecified; I08.0 Rheumatic disorders of both mitral and aortic valves; E88.09 Other disorders of plasma-protein metabolism, not elsewhere classified; E78.00 Pure hypercholesterolemia, unspecified; Z96.653 Presence of artificial knee joint, bilateral; K21.9 Gastro-esophageal reflux disease without esophagitis; Z79.01 Long term (current) use of anticoagulants; Z79.899 Other long term (current) drug therapy; Z79.83 Long term (current) use of bisphosphonates; Z82.49 Family history of ischemic heart disease and other diseases of the circulatory system; Z91.048 Other nonmedicinal substance allergy status
CPT/HCPCS: 36415; 71045; 76705; 80053; 81003; 83605; 83735; 83880; 84484; 85025; 85027; 85610; 85730; 87070; 87075; 87077; 87186; 87205; 93005; 93306; 93970; 96365; 96366; 96368; 96375; 99291

== ENCOUNTER 2024-01-10 12:34 | Inpatient (IN) | payer MEDICARE ==
[~2024-01-10 12:34] MED LIST changes: +AMIODARONE 200 MG TAB ONE; +APIXABAN 2.5 MG TABLET ONE; +ATORVASTATIN 20 MG TAB ONE; +DAPAGLIFLOZIN PROPANEDIOL 10 MG TABLET ONE; -LACTATED RINGERS 1,000 ML IV SCH; +METOPROLOL TARTRATE 50 MG TAB ONE; +SPIRONOLACTONE 25 MG TAB ONE
[2024-01-10] MEDS ORDERED: traMADol 50 MG TAB ONE (16:20)
[2024-01-10] MEDS ORDERED: METOPROLOL TARTRATE 50 MG TAB ONE (23:58)
[2024-01-10] MEDS ORDERED: SACUBITRIL/VALSARTAN 24 MG-26 MG TABLET PO ONE (23:59)
[2024-01-10] MEDS ORDERED: APIXABAN 2.5 MG TABLET ONE (23:59)
[2024-01-11] MEDS ORDERED: ATORVASTATIN 20 MG TAB ONE ×2 (00:01→23:21)
[2024-01-11] MEDS ORDERED: FUROSEMIDE 10 MG/ML 4 ML VIAL ONE (06:11)
[2024-01-11] MEDS ORDERED: SACUBITRIL/VALSARTAN 24 MG-26 MG TABLET PO ONE ×2 (08:45→23:21)
[2024-01-11] MEDS ORDERED: APIXABAN 2.5 MG TABLET ONE ×2 (08:45→23:21)
[2024-01-11] MEDS ORDERED: SPIRONOLACTONE 25 MG TAB ONE (08:45)
[2024-01-11] MEDS ORDERED: METOPROLOL TARTRATE 50 MG TAB ONE ×2 (08:45→23:21)
[2024-01-11] MEDS ORDERED: DAPAGLIFLOZIN PROPANEDIOL 10 MG TABLET ONE (08:49)
[2024-01-11] MEDS ORDERED: traMADol 50 MG TAB ONE ×2 (08:58→15:03)
[2024-01-11] MEDS ORDERED: HYDROcodone/APAP 7.5-325MG 1 EACH TAB ONE (23:28)
[2024-01-12] MEDS ORDERED: METOPROLOL TARTRATE 50 MG TAB ONE (07:43)
[2024-01-12] MEDS ORDERED: DAPAGLIFLOZIN PROPANEDIOL 10 MG TABLET ONE (07:43)
[2024-01-12] MEDS ORDERED: SPIRONOLACTONE 25 MG TAB ONE (07:43)
[2024-01-12] MEDS ORDERED: APIXABAN 2.5 MG TABLET ONE (07:44)
[2024-01-12] MEDS ORDERED: SACUBITRIL/VALSARTAN 24 MG-26 MG TABLET PO ONE (07:44)
[2024-01-12] MEDS ORDERED: AMIODARONE 200 MG TAB ONE (07:44)
--- NOTE | 2024-01-30 08:51 | CT ---
Patient: Miya Colon Ordering Physician: Unknown, Unknown ID: [id number] Phone, Pager: Phone : N/A Pager: N/A : [phone] Age/Gender: 83Y, F Primary Location: N/A Procedure: CT brain wo con Ele perrin Date: 01/09/2024 8:00:26 PM EXAMINATION TYPE: CT brain wo con CT DLP: 1197 mGycm, Automated exposure control for dose reduction was used. DATE OF EXAM: 01/09/2024 8:39 PM COMPARISON: 05/24/2023. CLINICAL INDICATION: AMS, fall TECHNIQUE: Brain: Axial CT images of the brain were obtained with coronal and sagittal reformats created and rev iewed. Contrast used: None. Oral contrast used: None. FINDINGS: Brain: Extra-axial spaces: No abnormal extra-axial fluid collections. Ventricular system: Dilatation in proportion to cerebral atrophy. Cerebral parenchyma: Cerebral atrophy. No acute intraparenchymal hemorrhage or mass effect. The quach -white junction is well differentiated. Scattered hypoattenuating areas are seen within the white mat ter. Cerebellum: Unremarkable. Mass effect: No evidence of midline shift. Intracranial vasculature: unremarkable Soft tissues: Normal. Calvarium/osseous structures: No depressed skull fracture. Paranasal sinuses and mastoid air cells: Mild scattered paranasal sinus disease. Visualized orbits: Bilateral aphakia IMPRESSION: 1. No acute intracranial process. 2. Nonspecific white matter changes, likely secondary to chronic small vessel ischemic disease.
--- NOTE | 2024-02-07 10:19 | XR ---
Miya Colon ID: [id number] : 1940 EXAMINATION TYPE: XR chest 2V DATE OF EXAM: 01/10/2024 COMPARISON: 01/09/2024 HISTORY: 83-year-old female with shortness of breath TECHNIQUE: AP and lateral views FINDINGS: Heart is moderately enlarged. Diffuse interstitial densities persist no sizable pleural effusion. Acc entuated mid thoracic stenosis. IMPRESSION: Similar [id number] cardiomegaly and interstitial opacities. Pulmonary vascular congestion, inte rstitial pneumonitis, and atypical pneumonias are some considerations.
--- NOTE | 2024-02-07 11:18 | XR ---
Patient: Miya Colon Ordering Physician: Unknown, Unknown ID: [id number] Phone, Pager: Phone : N/A Pager: N/A : [phone] Age/Gender: 83Y, F Primary Location: N/A Procedure: XR CHEST 2V Study Date: 01/09/2024 8:18:40 PM EXAMINATION TYPE: XR chest 2V DATE OF EXAM: 01/09/2024 8:46 PM CLINICAL INDICATION: Syncope COMPARISON: Chest radiographs from 12/21/2023 TECHNIQUE: XR chest 2V Frontal view of the chest. FINDINGS: Lungs/Pleura: There is no evidence of pleural effusion, focal consolidation, or pneumothorax. Pulmonary vascularity: Pulmonary vascular congestion. Heart/mediastinum: Cardiomediastinal silhouette is enlarged. Musculoskeletal: No acute osseous pathology. IMPRESSION: Cardiomegaly and mild pulmonary vascular congestion. Correlate with BNP for congestive heart failure.
== END 2024-01-12 13:41 | disposition hospice, home (50) | DRG 292 ==
LOC: OR 12:34 → 5NMEDONC 12:35
PROVIDERS: ADMIT Internal Medicine Geriatric Medicine; ATTEND Internal Medicine Geriatric Medicine
DX: I50.23 Acute on chronic systolic (congestive) heart failure (principal); E87.1 Hypo-osmolality and hyponatremia; I48.19 Other persistent atrial fibrillation; Z91.81 History of falling; Z66 Do not resuscitate; Z51.5 Encounter for palliative care; E86.1 Hypovolemia; Z79.01 Long term (current) use of anticoagulants; Z79.899 Other long term (current) drug therapy
CPT/HCPCS: 70450; 71046; 93005; 99285